=== PATIENT | male | born 1975 | race Two or more races ===

== ENCOUNTER 2022-05-10 12:00 | Emergency (ER) | payer MEDICAID, SELFPAY ==
[2022-05-10 12:06] VITALS: BP 135/82; PULSE 99; RESP 18; TEMP 36.8; O2SAT 99; BMI 21.9
== END 2022-05-10 13:03 | disposition left against medical advice (07) ==
PROVIDERS: Emergency Provider Emergency Medicine
DX: M54.2 Cervicalgia (principal)
CPT/HCPCS: 99281; 99283

== ENCOUNTER 2022-05-20 10:17 | Emergency (ER) | payer MEDICAID, SELFPAY ==
--- NOTE | ~2022-05-20 | XR_ITS ---
EXAMINATION: XR FOOT, LEFT CLINICAL INFORMATION: Left foot pain and swelling. COMPARISON: Radiographs done earlier today. TECHNIQUE: AP, lateral, and oblique views of the left foot. FINDINGS: Mild diffuse soft tissue swelling is present overlying the left foot and the left ankle. Old posttraumatic changes are noted involving the left ankle, better described on a separate left ankle radiograph report done earlier today. The left foot shows satisfactory bony alignment and intact cortices and normal-appearing articular margins and joint space. Mild osteoarthrosis at the dorsal part of the intertarsal joints. XR/XR foot LT 2V IMPRESSION: Mild diffuse soft tissue swelling of the left foot and ankle, without any radiographic evidence of underlying acute osseous or articular abnormalities of the left foot.
--- NOTE | ~2022-05-20 | XR_ITS ---
EXAMINATION: XR ANKLE, LEFT CLINICAL INFORMATION: Left ankle pain and swelling. COMPARISON: None TECHNIQUE: AP, lateral, and mortise views of the left ankle. An indicator arrow points to the lateral malleolus. FINDINGS: There is an old healed distal fibular metadiaphysis fracture. No acute fracture or dislocation is seen. The tibiotalar joint space is unremarkable. Corticated hypertrophic bone is seen posterior to the tibiotalar joint space.. The tarsal bones are normally aligned. The soft tissues are unremarkable. XR/XR ankle LT 2V IMPRESSION: Mild soft tissue swelling without overt acute underlying osseous abnormality. Old healed distal fibular fracture. Osseous hypertrophy posterior to the joint could represent a hypertrophied os trigonum or secondary to old trauma given the old distal fibular fracture. Correlate with physical exam.
[2022-05-20 10:19] VITALS: BP 134/78; PULSE 80; RESP 18; TEMP 36.6; O2SAT 98; BMI 24.3
--- NOTE | 2022-05-20 13:56 | ED.LOWEXIN ---
HPI - Extremity Injury (Lower) General Chief Complaint: Extremity Injury, Lower Stated Complaint: L ankle swollen no inj Time Seen by Provider: 05/20/22 13:55 Source: patient and interpreter for the deaf Mode of arrival: ambulatory Limitations: no limitations History of Present Illness HPI Narrative: 47-year-old male Faroese-speaking came in for evaluation of left ankle pain. Patient had an old injury to the left ankle causing fracture in the left ankle patient was in [place] back then. 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 Related Data Previous Rx's Medication Instructions Recorded ibuprofen 600 mg tablet 600 mg PO Q8H PRN pain #30 tabs 05/20/22 Allergies Allergy/AdvReac Type Severity Reaction Status Date / Time No Known Allergies Allergy Verified 05/10/22 12:06 Review of Systems Review of Systems: All other systems are reviewed and are negative Constitutional: Reports as per HPI and Reports no additional constitutional complaints Eyes: Reports as per HPI and Reports no additional eye complaints Reports system reviewed and no additional complaints, except as documented Cardiovascular: Reports as per HPI and Reports no additional cardiovascular complaints Respiratory: Reports as per HPI and Reports no additional respiratory complaints Gastrointestinal: Reports as per HPI and Reports no additional gastrointestinal complaints Genitourinary: Reports no additional female genitourinary complaints Musculoskeletal: Reports no additional musculoskeletal complaints Skin/Breast: Reports system reviewed and no additional complaints, except as docu Psychiatric: Reports no additional psychiatric complaints Endocrine: Reports no additional endocrine complaints Hematologic/Lymphatic: Reports no additional hematologic/lymphatic complaints Allergic/Immunologic: Reports no additional allergic/immunologic complaints Reports system reviewed and no additional complaints, except as documented and Reports Abnormal speech present Physical Exam Vital Signs: Vital Signs: Last Vital Signs Temp 98 F 05/20/22 10:19 Pulse 80 05/20/22 10:19 Resp 18 05/20/22 10:19 BP 134/78 05/20/22 10:19 Pulse Ox 98 05/20/22 10:19 O2 Del Method 05/20/22 10:19 BMI result Body Mass Index 24.3 Vital signs have been reviewed as appeared to be correct. Blood pressure normal. Heart rate normal. Respiration rate normal. Temperature normal. Oxygen saturation normal. Appearance: Alert. Oriented X3. No acute distress. Head: Normal external exam. Normocephalic. Atraumatic. No Medina signs noted. No raccoon eyes noted Eyes: PERRLA. EOMI. Conjunctiva and sclera normal. Eyelids normal. ENT: TM's Normal. Pharynx normal. Uvula midline. Moist mucous membranes. No trismus noted. No drooling noted. No muffled voice noted. Neck: Normal inspection. Neck supple. FROM. No adenopathy. Thyroid Normal. No meningeal signs. No neck mass noted. CVS: Normal heart rate and rhythm. Heart sound normal. No murmurs noted. Pulses normal throughout. Respiratory: No respiratory distress. Painless inspiration. Breath sounds normal. No wheezes/rales/rhonchi noted. Chest nontender. No accessory muscle usage noted or decreased air movement noted. Abdomen: Soft and nontender. Bowel sounds normal in all 4 quadrants. No distention noted. No organomegaly noted. No visible injury noted. Back: No CVA tenderness. Full range of motion noted. Skin: Skin warm and dry. Normal skin color. Normal skin turgor. No rashes/lesions/lacerations noted. Extremities: Left lower extremities: Swelling at the left ankle and left foot, no focal tenderness, no deformity, neurovascularly intact. Neuro: Oriented X 3. Cranial nerve exam: II-XII are grossly intact No motor deficit. No sensory deficit. Reflexes normal. Course Course Course Narrative: Left foot/left ankle pain likely due to an old fracture no acute fracture on x-ray. Will apply Beto bandage, ice, elevation, rest, NSAIDs, and follow up with Ortho. MDM - Extremity Injury (Lower) Imaging Data Left foot/ankle x-ray: Attestation: I personally reviewed and interpreted this imaging study as follows: Radiologist's impression: Mild soft tissue swelling without overt acute underlying osseous abnormality. Old healed distal fibular fracture. Osseous hypertrophy posterior to the joint could represent a hypertrophied os trigonum or secondary to old trauma given the old distal fibular fracture. Correlate with physical exam. Discharge Plan Discharge Clinical Impression: Ankle sprain and strain Patient Disposition: Home, Self-Care Instructions: Ankle Sprain (ED) Prescriptions: New ibuprofen 600 mg tablet 600 mg PO Q8H PRN (Reason: pain) Qty: 30 0RF Referrals: Arturo Cordero MD [Physician] - Stand Alone Forms: Work/School Release
[2022-05-20] MEDS: Ibuprofen 600 MG TABLET PO (14:09)
== END 2022-05-20 15:28 | disposition home or self-care (01) ==
PROVIDERS: Emergency Provider Emergency Medicine
DX: S93.402A Sprain of unspecified ligament of left ankle, initial encounter (principal); S96.912A Strain of unspecified muscle and tendon at ankle and foot level, left foot, initial encounter; X58.XXXA Exposure to other specified factors, initial encounter; Y93.9 Activity, unspecified; Y92.9 Unspecified place or not applicable; Y99.9 Unspecified external cause status
CPT/HCPCS: 73600; 73620; 99283

== ENCOUNTER 2022-06-03 09:32 | Emergency (ER) | payer MEDICAID, SELFPAY ==
--- NOTE | ~2022-06-03 | XR_ITS ---
EXAMINATION: XR ANKLE, LEFT CLINICAL INFORMATION: Pain with ambulation. COMPARISON: Radiograph of the left ankle dated from 05/20/2022. TECHNIQUE: AP, lateral, and mortise views of the left ankle. FINDINGS: Redemonstration of a chronic distal fibular fracture and prominent productive changes superior to the calcaneus, likely related with os trigonum. No acute fractures or malalignment. Similar degree of diffuse soft tissue swelling. XR/XR ankle LT min 3V IMPRESSION: No acute fracture or subluxation. Chronic distal fibular deformity, likely related with the prior fracture. Os trigonum. If symptoms persist and if clinically deemed appropriate, consider correlation with cross-sectional imaging to evaluate for occult injuries.
[2022-06-03 09:49] VITALS: BP 111/59; PULSE 74; RESP 20; TEMP 36.3; O2SAT 99; BMI 22.8
--- NOTE | 2022-06-03 12:48 | ED_ITS ---
HPI - General Adult General Chief complaint: Extremity Injury, Lower Stated complaint: L ankle pain Time Seen by Provider: 06/03/22 10:10 Source: patient Mode of arrival: ambulatory Limitations: no limitations History of Present Illness HPI narrative: Patient is a 47 year old male presenting to the emergency department today with left ankle pain. Patient states that he twisted his ankle going some stairs last night and is still having pain. Patient denies any dizziness, lightheadedness, abdominal pain, nausea, vomiting, fever, chills, blurry vision, double vision, loss of vision, chest pain, difficulty breathing, shortness of breath, back pain, night sweats, pain with urination, increased urinary frequency, increased urinary urgency, blood in his urine or stool, syncope or a near syncopal epis ode, bowel incontinence, bladder incontinence, bowel retention, bladder retention, or any other complaints at this time. Onset (ago): day(s) (1) Location: left and lower extremity Radiation: non-radiation Severity: mild Severity scale (1-10): 3 Quality: aching and dull Pain Consistency: constant Relieving factors: none Exacerbating factors: none Associated symptoms: denies other symptoms Treatments prior to arrival: none Related Data Previous Rx's Medication Instructions Recorded ibuprofen 600 mg tablet 600 mg PO Q8H PRN pain #30 tabs 05/20/22 Allergies Allergy/AdvReac Type Severity Reaction Status Date / Time No Known Allergies Allergy Verified 05/10/22 12:06 Review of Systems Constitutional: Constitutional: Reports no additional constitutional complaints, Denies chills, Denies fever(s) and Denies night sweats Eyes: Eyes: Reports no additional eye complaints, Denies blurry vision, Denies change in vision, Denies diplopia, Denies eye discharge, Denies loss of vision and Denies eye pain ENT: Denies dizziness Cardiovascular: Cardiovascular: Reports no additional cardiovascular complaints, Denies chest pain, Denies lightheadedness, Denies Loss of Consciousness and Denies dyspnea Respiratory: Respiratory: Reports no additional respiratory complaints and Denies dyspnea Gastrointestinal: Gastrointestinal: Reports no additional gastrointestinal complaints, Denies abdominal pain, Denies melena, Denies hematochezia, Denies change in bowel habits and Denies change in stool character Genitourinary: Genitourinary: Reports no additional male genitourinary complaints, Denies hematuria, Denies oliguria, Denies difficulty urinating, Denies dysuria, Denies urinary frequency, Denies urinary hesitancy, Denies urinary incontinence and Denies urinary urgency Musculoskeletal: Musculoskeletal: Reports no additional musculoskeletal complaints, Denies numbness and Denies tingling Comments: left ankle pain Neurologic: Denies dizziness, Denies loss of vision, Denies numbness and Denies tingling Psychiatric: Psychiatric: Reports no additional psychiatric complaints Endocrine: Endocrine: Reports no additional endocrine complaints Hematologic/Lymphatic: Hematologic/Lymphatic: Reports no additional hematologic/lymphatic complaints Allergic/Immunologic: Allergic/Immunologic: Reports no additional allergic/immunologic complaints [facility] Past Medical History Attestation statement: The following information was validated with the patient. Source: old records reviewed Social History Social History Advance Directives: No Advance Directives Information Provided: Yes Physical Exam ED Vital Signs: Vital Signs - 24 hr 06/03/22 09:49 Temperature 97.4 F Pulse Rate 74 Respiratory Rate 20 Blood Pressure 111/59 L Pulse Oximetry 99 Oxygen Delivery Method Room Air BMI result Body Mass Index 22.8 Const General: cooperative, no acute distress, alert and awake Nutritional Appearance: well nourished Orientation/consciousness: patient oriented x3 Limitations: no limitations HENMT Head: Yes normal to inspection and Yes atraumatic Ears: hearing grossly normal bilaterally and external ears normal General nose exam: Normal external nose present, no nasal discharge noted and no epistaxis Face and sinus: Yes normal facial exam, No abrasion and No laceration Mouth: Normal oral and palatal mucosa present, no drooling and no muffled voice Eyes General: appearance normal, both eyes and all related structures Periorbital: periorbital findings normal Eyelids: Yes eyelids normal Conjunctivae: conjunctivae normal Pupils: Equal, round and reactive pupils present EOM: EOMs intact bilaterally Neck Neck: Yes normal visual inspection, Yes full ROM and Yes no lymphadenopathy Chest Chest palpation & inspection: normal inspection of the chest Resp Effort & Inspection: normal respiratory effort and able to speak in complete sentences Auscultation: clear to auscultation bilaterally Cardio Rate: regular rate Rhythm: regular rhythm GI Inspection: Yes normal to inspection Neuro General: patient oriented x3 and moves all extremities Cranial nerves: Yes Equal, round and reactive pupils present Cognition (Neuro): normal cognition Motor exam (neuro): 5/5 motor strength present throughout Sensory Exam: Normal double simultaneous stimulation for sensation Coordination: [id number] test normal Extrem Other: mild swelling to left ankle General: Yes full ROM and Yes capillary refill normal Psych Appearance: grossly normal Mental Status: mental status grossly normal Affect: normal affect Attitude: cooperative Thought process: Normal thought process present Thought content: Normal thought content present Insight: Good insight present (Psych) Procedures Orthopedic Splinting/Casting Injury #1: Side: left Lower Extremity Injury Location: ankle Lower Extremity Immobilizer: boot orthosis Medical Decision Making MDM Narrative Medical decision making narrative: Patient is a 47 year old male presenting to the emergency department today with left ankle pain. Patient's physical exam showed mild swelling to the left ankle but was otherwise unremarkable. Patient's left ankle x-ray showed no acute fracture. I explained my physical exam findings as well as all test results to the patient. I answered all questions asked by the patient. Patient's left ankle was placed into a walking boot, without incident. I stressed the importance of the patient taking his medication as prescribed. I stressed the importance of the patient following up with his primary care provider and an orthopedic provider. I stressed the importance of the patient returning to the emergency department immediately if his symptoms were to worsen or if he were to develop any dizziness, shortness of breath, difficulty breathing, chest pain, blurry vision, loss of vision, nausea, vomiting, abdominal pain, fever, chills, back pain, or any other complaints. Patient verbalized agreement and understanding with this treatment plan and discharge. Differential Diagnosis Differential Diagnosis: ankle sprain Medical Records Medical records reviewed: Yes I reviewed the patient's medical records. Imaging Data Left ankle x-ray: Attestation: I personally reviewed and interpreted this imaging study as follows: My impression: No acute fracture. Radiologist's impression: EXAMINATION: XR ANKLE, LEFT CLINICAL INFORMATION: Pain with ambulation.? COMPARISON: Radiograph of the left ankle dated from 05/20/2022.? TECHNIQUE: AP, lateral, and mortise views of the left ankle. FINDINGS: Redemonstration of a chronic distal fibular fracture and prominent productive changes superior to the calcaneus, likely related with os trigonum. No acute fractures or malalignment. Similar degree of diffuse soft tissue swelling.? XR/XR ankle LT min 3V IMPRESSION: No acute fracture or subluxation. ? Chronic distal fibular deformity, likely related with the prior fracture. ? Os trigonum. ? If symptoms persist and if clinically deemed appropriate, consider correlation with cross-sectional imaging to evaluate for occult injuries. Dictated By: Linda Rivero Signed By: Electronically signed by Linda?Josefa 06/03/22 1221 Discharge Plan Discharge Clinical Impression: Ankle sprain and strain Patient Disposition: Home, Self-Care Instructions: Ankle Sprain (ED) Additional Instructions: Follow up with your primary care provider and an orthopedic provider. Return to the emergency department immediately if your symptoms worsen or if you develop any dizziness, shortness of breath, difficulty breathing, chest pain, blurry vision, loss of vision, nausea, vomiting, abdominal pain, fever, chills, back pain, or any other complaints. Prescriptions: No Action ibuprofen 600 mg tablet 600 mg PO Q8H PRN (Reason: pain) Qty: 30 0RF Referrals: [facility] [Provider Group] (Call to establish and follow up with a primary care provider. If you already have one, please follow up with them.) [facility] Primary Care, Olivia [Provider Group] (Call to establish and follow up with a primary care provider. If you already have one, please follow up with them.) [facility] Primary Care,Lisa [Provider Group] (Call to establish and follow up with a primary care provider. If you already have one, please follow up with them.) [facility] Surgeons [Provider Group] (Call to establish and follow up with an orthopedic provider. ) Stand Alone Forms: Work/School Release Print Language: Canadian
--- NOTE | 2022-06-03 14:37 | PC.NURSE ---
DISCHARGED BY PROVIDER
== END 2022-06-03 13:50 | disposition home or self-care (01) ==
PROVIDERS: Emergency Provider Emergency Medicine
DX: S93.402A Sprain of unspecified ligament of left ankle, initial encounter (principal); S96.911A Strain of unspecified muscle and tendon at ankle and foot level, right foot, initial encounter; X50.1XXA Overexertion from prolonged static or awkward postures, initial encounter; Y93.89 Activity, other specified; Y92.9 Unspecified place or not applicable; Y99.9 Unspecified external cause status
CPT/HCPCS: 73610; 99281; 99283

== ENCOUNTER 2022-06-05 10:51 | Emergency (ER) | payer MEDICAID, SELFPAY ==
[2022-06-05 10:59] VITALS: BP 114/73; PULSE 98; RESP 18; TEMP 36.9; O2SAT 98; BMI 25.1
--- NOTE | 2022-06-05 12:16 | ED.MEDCLEAR ---
HPI - Medical Clearance General Chief complaint: Medical Clearance Stated complaint: L foot pain Time Seen by Provider: 06/05/22 11:29 Source: patient Mode of arrival: ambulatory Limitations: language barrier (Algerian-speaking medical office worker utilized) History of Present Illness HPI Narrative: Patient presents to the emergency department today requesting medical clearance for return to work. He states that he was seen here 2 days ago for re-evaluation of an ankle sprain, he was still having pain at that time, states he was given a walking boot and advised to follow-up with orthopedics. He reports he does not have an orthopedic appointment until 06/17/2022. At this time and he denying any pain and has been walking without the use of boot since yesterday. He states that he would like to return to work as he is feeling much better at this time. Related Information Previous Rx's Medication Instructions Recorded ibuprofen 600 mg tablet 600 mg PO Q8H PRN pain #30 tabs 05/20/22 Allergies Allergy/AdvReac Type Severity Reaction Status Date / Time No Known Allergies Allergy Verified 05/10/22 12:06 Review of Systems Review of Systems: Musculoskeletal: No swelling. No deformity. Ambulating with steady gait. Yes all other systems are reviewed and are negative PMFSH Past Medical History Attestation statement: The following information was validated with the patient. Source: old records reviewed Social History Social History Advance Directives: No Advance Directives Information Provided: No Physical Exam Vital Signs: Vital Signs: Last Vital Signs Temp 98.4 F 06/05/22 10:59 Pulse 98 06/05/22 10:59 Resp 18 06/05/22 10:59 BP 114/73 06/05/22 10:59 Pulse Ox 98 06/05/22 10:59 O2 Del Method 06/05/22 10:59 BMI result Body Mass Index 25.1 Appearance: Alert.?Oriented to person, place and time. No acute distress.?Normal affect. Neck: Normal inspection.? Neck supple.?? CVS: Heart sounds normal. Normal heart rate and rhythm.? Pulses normal.?? Respiratory: No respiratory distress.? Lung sounds clear to auscultation bilaterally?? Abdomen: Soft and non-tender. Skin: Skin warm and dry.? Normal skin color.? Normal skin turgor.?? Extremities: No lower extremity edema.? No calf ttp?full AROM to left ankle. 2+ DP/PT pulse palpable bilaterally Neuro: Moves all extremities spontaneously. Sensation intact bilaterally. Ambulates with normal steady gait. Course Course Course Narrative: Patient is a 47-year-old male presents emergency department today for re-evaluation for recent left ankle sprain. At the time exam he is ambulatory with steady gait without the use of a walking boot, full AROM to ankle, neurovascularly intact distally. Patient initially noted to be jumping up and down on his foot during the exam denying any pain at this time. Follow-up appoint with Orthopedics is not scheduled for another 2 weeks, he would like to return to work at this time. Reviewed this case with ED attending Dr. Kamara, who agrees there is no contraindication to clearing patient for work at this time without being evaluated by Orthopedics. Patient provided with return to work note. Discharged home in stable condition. Discharge Plan Discharge Clinical Impression: Ankle sprain Patient Disposition: Home, Self-Care Additional Instructions: You were seen in the emergency department today for re-evaluation of your left ankle sprain. You were seen 2 days ago as you continue to have pain and were referred to follow-up with orthopedics. Today you declined having any additional pain and would like to return to work. You were able to ambulate without the use of the walking boot. At this time you are cleared to return to work, if you develop any new or worsening symptoms or concerns you should be re-evaluated by your primary care provider or Orthopedics if you develop ankle pain again. Prescriptions: No Action ibuprofen 600 mg tablet 600 mg PO Q8H PRN (Reason: pain) Qty: 30 0RF Stand Alone Forms: Work/School Release Print Language: Algerian
== END 2022-06-05 12:38 | disposition home or self-care (01) ==
PROVIDERS: Emergency Provider Emergency Medicine
DX: M79.672 Pain in left foot (principal)
CPT/HCPCS: 99283

== ENCOUNTER 2022-10-19 20:19 | Emergency (ER) | payer OTHER, SELFPAY ==
--- NOTE | ~2022-10-19 | XR_ITS ---
EXAMINATION: XR CHEST CLINICAL INFORMATION: Short of breath COMPARISON: None TECHNIQUE: Frontal view of the chest was obtained. FINDINGS: Cardiac leads overlie the chest. The lungs are well expanded. Bronchial wall thickening noted. There is no focal consolidation, edema, or effusion. No pneumothorax. The cardiomediastinal silhouette is within normal limits. No acute osseous abnormality. XR/XR chest 1V IMPRESSION: No dense consolidation. Bronchial wall thickening can be seen with a small airways process such as asthma or atypical/viral infection.
[2022-10-19 20:23] VITALS: BP 114/78; PULSE 67; O2SAT 96
[2022-10-19 20:26] VITALS: BP 149/84; PULSE 84; RESP 16; TEMP 36.9; O2SAT 97; BMI 22.0
--- NOTE | 2022-10-19 20:41 | PC.NURSE ---
pt resting on stretcher at this time, sleeping. respirations are even and unlabored, no apparent distress
[2022-10-19 21:38] LABS: MANUAL DIFF FLAG NO
[2022-10-19 21:40] LABS: Basophils Percent Auto 0.5 % (0-2); Eosinophils Absolute Auto 0.3 X10*3/uL (0.0-0.4); Eosinophils Percent Auto 3.2 % (0-4); Hematocrit 40.7 % (42.0-52.0); Hemoglobin 13.5 g/dl (14.0-18.0); Imm Gran Abs Auto 0.01 X10*3/uL (0.00-0.03); Imm Gran Pct Auto 0.1 % (0.0-0.4); Lymphocytes Absolute Auto 1.5 X10*3/uL (1.2-4.9); Mean Corpuscular HGB Conc 33.2 g/dl (31.0-36.0); Mean Corpuscular Hemoglobin 31.3 pg (27.0-33.0); Mean Corpuscular Volume 94.2 fL (80.0-98.0); Mean Platelet Volume 9.1 fL (9.4-12.4); Monocytes Absolute Auto 0.4 X10*3/uL (0.1-1.2); Monocytes Percent Auto 4.3 % (2-11); Neutrophils Absolute Auto 5.9 x10*3/uL (2.0-8.3); Neutrophils Percent Auto 72.9 % (45-73); Platelet Count 244 X10*3/uL (160-400); Red Blood Count 4.32 X10*6/uL (4.60-5.80); Red Cell Distribution Width 12.8 % (11.0-16.0); White Blood Count 8.1 X10*3/uL (4.8-10.8)
--- NOTE | 2022-10-19 21:43 | ECG_ITS ---
Test Reason : N/V Blood Pressure : / mmHG Vent. Rate : 077 BPM Atrial Rate : 077 BPM P-R Int : 142 ms QRS Dur : 098 ms QT Int : 420 ms P-R-T Axes : 067 062 064 degrees QTc Int : 475 ms Normal sinus rhythm with sinus arrhythmia Moderate voltage criteria for LVH, may be normal variant ( Sokolow-Moreno , Shayan product ) Nonspecific T wave abnormality Prolonged QT Abnormal ECG No previous ECGs available Referred By: Lisseth Garcia Electronically Signed By:Chuy Marroquin
[2022-10-19 21:48] VITALS: BP 131/80; PULSE 74; RESP 18; TEMP 37.2; O2SAT 100
[2022-10-19] MEDS: LORazepam 2 MG/ML VIAL 1 MG IVPUSH (22:00)
[2022-10-19] MEDS: 0.9 % Sodium Chloride 1,000 ML 999 ML IV ×3 (22:00→23:17)
[2022-10-19 22:03] LABS: IDNOW Serial# BCCEAD1C; Influenza A Negative (Negative); Influenza B2 Positive (Negative)
[2022-10-19 22:06] LABS: Anion Gap 9 (12-20)
[2022-10-19 22:10] LABS: Acetaminophen LAB < 17 mcg/mL (<30); Blood Urea Nitrogen 21 mg/dL (9-16); Calcium 8.8 mg/dL (8.4-10.2); Carbon Dioxide 30 mmol/L (22-29); Chloride 105 mmol/L (96-108); Creatinine Clr Calc Pharmacy 100.6; Estimated Glomerular Filt Rate > 60; Ethanol < 10 mg/dL; Glucose Random 106 mg/dL (60-115); Potassium 3.8 mmol/L (3.3-5.1); Salicylate < 5.0 mg/dL (15-30); Sodium 140 mmol/L (135-145)
[2022-10-19 22:15] LABS: COVID-19 Test Negative (Negative); IDNOW Serial# 16C4AD1C
[2022-10-19 22:23] LABS: Troponin-I High Sensitivity 8.4 ng/L (<3.5-35.0)
--- NOTE | 2022-10-19 22:26 | ED.GENADULT ---
HPI - General Adult General Chief complaint: Nausea/Vomiting/Diarrhea Stated complaint: Weak, no food/sleep x4days, substance use per EMS Time Seen by Provider: 10/19/22 21:14 Source: patient Mode of arrival: ambulatory Limitations: other (glory historian ) History of Present Illness HPI narrative: This is a 47-year-old male history of substance abuse presenting to the emergency department via EMS according to EMS patient was found wandering outside of a store, EMS reports that patient is homeless and he reported to EMS he has not been eating or drinking for the past 4 days. According to patient when he arrives he tells nursing he ate today however he is having nausea and vomiting. Patient also reports that he uses heroin, last use yesterday, tells me he is dope sick. When I asked him if he drinks alcohol he tells me he drinks twice a week last drink yesterday. No history of alcohol withdrawal. Reports diffuse body aches and pains. Denies fevers, chills, chest pain, shortness of breath, headache, vision changes, dizziness. Patient diaphoretic upon history taking. Poor historian and is easily annoyed with me asking him questions Related Data Previous Rx's Medication Instructions Recorded ibuprofen 600 mg tablet 600 mg PO Q8H PRN pain #30 tabs 05/20/22 Allergies Allergy/AdvReac Type Severity Reaction Status Date / Time No Known Allergies Allergy Verified 10/19/22 20:33 Review of Systems Review of Systems: Constitutional : No Weight loss, No Fever, No Chills, + Fatigue, + Malaise ENT/Mouth : No sore throat, No Rhinorrhea Eyes: No Eye Pain, No Swelling, No Redness Cardiovascular : No Chest Pain, No SOB, No Dyspnea on Exertion, No Orthopnea, No Edema, No Palpitations Respiratory : No Cough, No Sputum, No Wheezing Gastrointestinal : + Nausea, + Vomiting, No Diarrhea, No Constipation, No abdominal Pain, No Hematochezia, No Melena Genitourinary : No Dysuria, No Urinary Frequency, No Hematuria, Musculoskeletal : No joint pain, No Myalgias, No Joint Swelling Skin : No Skin Lesions, No rash Neuro : + Weakness, No Numbness, No Dizziness, No Headache Psych : No Anxiety/Panic, No Depression All other systems reviewed and are negative Yes all other systems are reviewed and are negative [facility] Past Medical History Attestation statement: The following information was validated with the patient. Source: old records reviewed and nursing notes reviewed Social History Social History Advance Directives: No Advance Directives Information Provided: No Physical Exam ED Vital Signs: Vital Signs - 24 hr 10/19/22 20:26 10/19/22 21:48 10/20/22 00:17 Temperature 98.5 F 99.0 F 98.3 F Pulse Rate 84 74 74 Respiratory Rate 16 18 18 Blood Pressure 149/84 H 131/80 138/83 Pulse Oximetry 97 100 96 Oxygen Delivery Method Room Air Room Air BMI result Body Mass Index 22.0 vss Appearance: Alert.? Oriented X3.? No acute distress.? Patient diaphoretic Head: Normocephalic, atraumatic, no step-offs or deformities Eyes: Pupils equal, round and reactive to light.? ENT: Pharynx normal.? Neck: Normal inspection.? Neck supple.? CVS: Normal heart rate and rhythm.? Pulses normal.? Respiratory: No respiratory distress.? Breath sounds normal.? Abdomen: Soft and nontender.? Skin: Skin warm and dry.? Normal skin color.? Normal skin turgor.? Extremities: No lower extremity edema.? No calf ttp. 5/5 strength to bilateral upper and lower extremities Neuro: Oriented X 3.? No motor deficit.? No sensory deficit. CN 2-12 intact Course Reevaluation(s) Reevaluation #1: CBC with normocytic anemia, chemistry with elevated BUN of 21, troponin negative, EKG nonischemic, patient not complaining of chest pain ache unlikely ACS. Patient's total creatinine kinase 950 consistent with rhabdomyolysis, no signs of DWIGHT at this time. Will hydrate with IV fluids. Salicylates, acetaminophen and ethanol level negative. Patient is noted to be positive for influenza type B likely contributing to patient's symptoms. Time: 22:34 Reevaluation #2: Patient's head CT pending, repeat CPK pending. At this time patient will be placed into physician observation to allow more time for listed imaging and labs. Sign-out given to Dr. Walker, patient should be seen by care team prior to DC. I will not initiate Tamiflu as patient's symptoms have likely been going on for greater than 48 hours per patient history. Time: 23:42 Medications Administered Generic Name Dose Route Start Last Admin Trade Name Freq PRN Reason Stop Dose Admin Sodium Chloride 1,000 mls @ 999 mls/hr 10/19/22 23:45 10/20/22 00:12 Ns IV 10/20/22 00:45 999 mls/hr .Q1H1M EDMUND Administration Discontinued Medications Generic Name Dose Route Start Last Admin Trade Name Freq PRN Reason Stop Dose Admin Acetaminophen 650 mg 10/19/22 22:25 10/19/22 23:17 Acetaminophen 325 Mg Tablet PO 10/19/22 22:26 650 mg ONCE ONE Administration Sodium Chloride 1,000 mls @ 999 mls/hr 10/19/22 21:45 10/20/22 00:12 Ns IV 10/19/22 22:45 Infused .Q1H1M EDMUND Infusion Sodium Chloride 1,000 mls @ 999 mls/hr 10/19/22 22:00 10/20/22 00:13 Ns IV 10/19/22 23:00 Infused .Q1H1M EDMUND Infusion Sodium Chloride 1,000 mls @ 999 mls/hr 10/19/22 22:30 10/20/22 00:12 Ns IV 10/19/22 23:30 Infused .Q1H1M EDMUND Infusion Lorazepam 1 mg 10/19/22 21:46 10/19/22 22:00 Lorazepam 2 Mg/Ml Vial IVPUSH 10/19/22 21:47 1 mg ONCE ONE Administration Medical Decision Making Medical Decision Making [facility] Narrative: 0 47-year-old male presents with fatigue, malaise, poor p.o. intake, nausea, vomiting, reports he feels ?dope sick ? Physical exam benign however patient does appear diaphoretic. Vital signs stable. Concerns for possible viral infection along with opiate withdrawal. Will rule out electrolyte abnormalities, dehydration, rhabdomyolysis. Unlikely intra-abdominal etiology, no tenderness to palpation of abdomen. Unlikely PE, ACS as patient does not report chest pain or shortness of breath. Plan at this time labs, imaging, viral test Differential Diagnosis Differential Diagnoses: The differential diagnosis associated with the presentation includes Concerns for possible viral infection along with opiate withdrawal. Will rule out electrolyte abnormalities, dehydration, rhabdomyolysis. Unlikely intra-abdominal etiology, no tenderness to palpation of abdomen. Unlikely PE, ACS as patient does not report chest pain or shortness of breath. Admission/Observation Consideration of admission/observation: Escalation of care including admission/observation considered Lab Data MDM Lab Attestation statement: I reviewed the patient's lab results. 10/19/22 21:33 10/19/22 21:33 Labs: Lab Results 10/19/22 10/19/22 10/19/22 Range/Units 21:33 21:33 21:33 WBC 8.1 (4.8-10.8) X10*3/uL RBC 4.32 L (4.60-5.80) X10*6/uL Hgb 13.5 L (14.0-18.0) g/dl Hct 40.7 L (42.0-52.0) % MCV 94.2 (80.0-98.0) fL MCH 31.3 (27.0-33.0) pg MCHC 33.2 (31.0-36.0) g/dl RDW 12.8 (11.0-16.0) % Plt Count 244 (160-400) X10*3/uL MPV 9.1 L (9.4-12.4) fL Immature Gran % (Auto) 0.1 (0.0-0.4) % Neut % (Auto) 72.9 (45-73) % Lymph % (Auto) 19.0 L (20-40) % Daniels % (Auto) 4.3 (2-11) % Eos % (Auto) 3.2 (0-4) % Baso % (Auto) 0.5 (0-2) % Lymph # (Auto) 1.5 (1.2-4.9) X10*3/uL Daniels # (Auto) 0.4 (0.1-1.2) X10*3/uL Eos # (Auto) 0.3 (0.0-0.4) X10*3/uL Baso # (Auto) 0.0 (0.0-0.2) X10*3/uL Abs Immat Gran (auto) 0.01 (0.00-0.03) X10*3/uL Absolute Neuts (auto) 5.9 (2.0-8.3) x10*3/uL Absolute Nucleated RBC 0.000 (0.0-0.012) X10*3/uL Nucleated RBC % (auto) 0.0 (0.0-0.2) /100WBC Sodium 140 (135-145) mmol/L Potassium 3.8 (3.3-5.1) mmol/L Chloride 105 (96-108) mmol/L Carbon Dioxide 30 H (22-29) mmol/L Anion Gap 9 L (12-20) BUN 21 H (9-16) mg/dL Creatinine 0.85 (0.5-1.4) mg/dL Estim Creat Clear Calc 100.6 Estimated GFR > 60 Random Glucose 106 (60-115) mg/dL Calcium 8.8 (8.4-10.2) mg/dL Total Creatine Kinase 950 H (38-174) U/L Troponin I High Sens (<3.5-35.0) ng/L Urine Color Urine Appearance Urine pH (5.0-9.0) Ur Specific Laurens (1.005-1.025) Urine Protein (Neg-Trace) mg/dL Urine Glucose (UA) (Negative) mg/dL Urine Ketones (Negative) mg/dL Urine Blood (Negative) Urine Nitrite (Negative) Ur Leukocyte Esterase (Negative) Salicylates < 5.0 L (15-30) mg/dL Urine Opiates Screen (Not Detect) Urine Fentanyl Screen (Not Detect) Acetaminophen < 17 (<30) mcg/mL Ur Barbiturates Screen (Not Detect) Ur Phencyclidine Scrn (Not Detect) Ur Amphetamines Screen (Not Detect) U Benzodiazepines Scrn (Not Detect) Urine Cocaine Screen (Not Detect) U Marijuana (THC) Screen (Not Detect) Ethyl Alcohol < 10 mg/dL COVID-19 (REJI) (Negative) COVID-19 Clin Com Influenza Type A (CHRISTIN) Negative (Negative) Influenza Type B (CHRISTIN) Positive A (Negative) Influenza A & B Note See Note 10/19/22 10/19/22 10/19/22 Range/Units 21:33 21:33 23:20 WBC (4.8-10.8) X10*3/uL RBC (4.60-5.80) X10*6/uL Hgb (14.0-18.0) g/dl Hct (42.0-52.0) % MCV (80.0-98.0) fL MCH (27.0-33.0) pg MCHC (31.0-36.0) g/dl RDW (11.0-16.0) % Plt Count (160-400) X10*3/uL MPV (9.4-12.4) fL Immature Gran % (Auto) (0.0-0.4) % Neut % (Auto) (45-73) % Lymph % (Auto) (20-40) % Daniels % (Auto) (2-11) % Eos % (Auto) (0-4) % Baso % (Auto) (0-2) % Lymph # (Auto) (1.2-4.9) X10*3/uL Daniels # (Auto) (0.1-1.2) X10*3/uL Eos # (Auto) (0.0-0.4) X10*3/uL Baso # (Auto) (0.0-0.2) X10*3/uL Abs Immat Gran (auto) (0.00-0.03) X10*3/uL Absolute Neuts (auto) (2.0-8.3) x10*3/uL Absolute Nucleated RBC (0.0-0.012) X10*3/uL Nucleated RBC % (auto) (0.0-0.2) /100WBC Sodium (135-145) mmol/L Potassium (3.3-5.1) mmol/L Chloride (96-108) mmol/L Carbon Dioxide (22-29) mmol/L Anion Gap (12-20) BUN (9-16) mg/dL Creatinine (0.5-1.4) mg/dL Estim Creat Clear Calc Estimated GFR Random Glucose (60-115) mg/dL Calcium (8.4-10.2) mg/dL Total Creatine Kinase (38-174) U/L Troponin I High Sens 8.4 (<3.5-35.0) ng/L Urine Color Urine Appearance Urine pH (5.0-9.0) Ur Specific Laurens (1.005-1.025) Urine Protein (Neg-Trace) mg/dL Urine Glucose (UA) (Negative) mg/dL Urine Ketones (Negative) mg/dL Urine Blood (Negative) Urine Nitrite (Negative) Ur Leukocyte Esterase (Negative) Salicylates (15-30) mg/dL Urine Opiates Screen POSITIVE H (Not Detect) Urine Fentanyl Screen POSITIVE H (Not Detect) Acetaminophen (<30) mcg/mL Ur Barbiturates Screen Not Detected (Not Detect) Ur Phencyclidine Scrn Not Detected (Not Detect) Ur Amphetamines Screen Not Detected (Not Detect) U Benzodiazepines Scrn Not Detected (Not Detect) Urine Cocaine Screen POSITIVE H (Not Detect) U Marijuana (THC) Screen Not Detected (Not Detect) Ethyl Alcohol mg/dL COVID-19 (REJI) Negative (Negative) COVID-19 Clin Com See Note Influenza Type A (CHRISTIN) (Negative) Influenza Type B (CHRISTIN) (Negative) Influenza A & B Note 10/19/22 10/19/22 Range/Units 23:24 23:55 WBC (4.8-10.8) X10*3/uL RBC (4.60-5.80) X10*6/uL Hgb (14.0-18.0) g/dl Hct (42.0-52.0) % MCV (80.0-98.0) fL MCH (27.0-33.0) pg MCHC (31.0-36.0) g/dl RDW (11.0-16.0) % Plt Count (160-400) X10*3/uL MPV (9.4-12.4) fL Immature Gran % (Auto) (0.0-0.4) % Neut % (Auto) (45-73) % Lymph % (Auto) (20-40) % Daniels % (Auto) (2-11) % Eos % (Auto) (0-4) % Baso % (Auto) (0-2) % Lymph # (Auto) (1.2-4.9) X10*3/uL Daniels # (Auto) (0.1-1.2) X10*3/uL Eos # (Auto) (0.0-0.4) X10*3/uL Baso # (Auto) (0.0-0.2) X10*3/uL Abs Immat Gran (auto) (0.00-0.03) X10*3/uL Absolute Neuts (auto) (2.0-8.3) x10*3/uL Absolute Nucleated RBC (0.0-0.012) X10*3/uL Nucleated RBC % (auto) (0.0-0.2) /100WBC Sodium (135-145) mmol/L Potassium (3.3-5.1) mmol/L Chloride (96-108) mmol/L Carbon Dioxide (22-29) mmol/L Anion Gap (12-20) BUN (9-16) mg/dL Creatinine (0.5-1.4) mg/dL Estim Creat Clear Calc Estimated GFR Random Glucose (60-115) mg/dL Calcium (8.4-10.2) mg/dL Total Creatine Kinase 805 H (38-174) U/L Troponin I High Sens (<3.5-35.0) ng/L Urine Color Yellow Urine Appearance Turbid Urine pH 7.5 (5.0-9.0) Ur Specific Laurens 1.015 (1.005-1.025) Urine Protein Negative (Neg-Trace) mg/dL Urine Glucose (UA) Negative (Negative) mg/dL Urine Ketones Negative (Negative) mg/dL Urine Blood Negative (Negative) Urine Nitrite Negative (Negative) Ur Leukocyte Esterase Negative (Negative) Salicylates (15-30) mg/dL Urine Opiates Screen (Not Detect) Urine Fentanyl Screen (Not Detect) Acetaminophen (<30) mcg/mL Ur Barbiturates Screen (Not Detect) Ur Phencyclidine Scrn (Not Detect) Ur Amphetamines Screen (Not Detect) U Benzodiazepines Scrn (Not Detect) Urine Cocaine Screen (Not Detect) U Marijuana (THC) Screen (Not Detect) Ethyl Alcohol mg/dL COVID-19 (REJI) (Negative) COVID-19 Clin Com Influenza Type A (CHRISTIN) (Negative) Influenza Type B (CHRISTIN) (Negative) Influenza A & B Note Independent Interpretation I performed an independent interpretation of an: Plain X-Ray and CT Scan Radiology Impression Discussion of test interpretation with radiology: I have reviewed the radiologist's reading. Core Measures AMI core measures followed: Yes Measure exclusions: not indicated Critical Care Time Critical Care Time Critical Care Time: No Discharge Plan Discharge Clinical Impression: Influenza, Rhabdomyolysis, Nausea & vomiting Patient Disposition: Still a Patient Prescriptions: No Action ibuprofen 600 mg tablet 600 mg PO Q8H PRN (Reason: pain) Qty: 30 0RF
[2022-10-19] MEDS: Acetaminophen 325 MG TABLET 650 MG PO (23:17)
[2022-10-19 23:32] LABS: Appearance Urine Turbid; Color Urine Yellow; Glucose Urine UA Negative (Negative); Leukocyte Esterase Urine Negative (Negative); Nitrite Urine Negative (Negative); PH 7.5 (5.0-9.0); Specific Gravity - Urine 1.015 (1.005-1.025); Urine Blood Negative (Negative); Urine Ketones Negative (Negative); Urine Protein Negative (Neg-Trace)
[2022-10-19 23:44] LABS: Amphetamine Screen Urine Not Detected (Not Detect); Barbiturates, Urine Not Detected (Not Detect); Benzodiazepines Screen Urine Not Detected (Not Detect); Cannabinoid Screen Urine Not Detected (Not Detect); Cocaine Screen Urine POSITIVE (Not Detect); Fentanyl, urine POSITIVE (Not Detect); Opiate Screen Urine POSITIVE (Not Detect); Phencyclidine Screen Urine Not Detected (Not Detect)
[2022-10-20] MEDS: 0.9 % Sodium Chloride 1,000 ML 999 ML IV (00:12)
[2022-10-20 00:17] VITALS: BP 138/83; PULSE 74; RESP 18; TEMP 36.8; O2SAT 96
--- NOTE | 2022-10-20 00:39 | PC.NURSE ---
Pt is CAOx4 and continues to be uncooperative with staff and treatment. Pt ripped one IV out of arm while fluids were infusing. Second IV inserted and pt jumped out of bed and ripped out second IV. Provider made aware.
== END 2022-10-20 00:57 | disposition home or self-care (01) ==
PROVIDERS: Physician Assistant; Emergency Provider Internal Medicine
DX: J11.1 Influenza due to unidentified influenza virus with other respiratory manifestations (principal); M62.82 Rhabdomyolysis; R11.2 Nausea with vomiting, unspecified; Z20.822 Contact with and (suspected) exposure to COVID-19; F19.10 Other psychoactive substance abuse, uncomplicated; Z59.00 Homelessness unspecified
CPT/HCPCS: 36415; 71045; 80048; 80143; 80179; 80307; 81003; 82077; 82550; 84484; 85025; 87502; 87635; 93005; 96361; 96374; 99284; J2060

== ENCOUNTER 2023-04-28 22:03 | Emergency (ER) | payer OTHER, SELFPAY ==
[2023-04-28 22:18] VITALS: BP 132/62; PULSE 72; O2SAT 99; BMI 30.4
--- NOTE | 2023-04-28 22:31 | ED.OVERDOSE ---
HPI - Overdose General Chief Complaint: Overdose Stated Complaint: overdose, found unconscious, alert now, per ems Time Seen by Provider: 04/28/23 22:14 Source: patient and EMS Mode of arrival: EMS Limitations: no limitations History of Present Illness HPI Narrative: Patient was found unresponsive around on a park bench received 4 mg Narcan intranasally after that patient vomiting no signs of head injury says that he used cocaine denies any chest pain shortness of breath Related Data Previous Rx's Medication Instructions Recorded ibuprofen 600 mg tablet 600 mg PO Q8H PRN pain #30 tabs 05/20/22 Allergies Allergy/AdvReac Type Severity Reaction Status Date / Time No Known Allergies Allergy Verified 04/28/23 22:20 Review of Systems Review of Systems: Yes all other systems are reviewed and are negative [facility] Social History Social History Smoked in Last 30 Days: Yes Advance Directives: No Advance Directives Information Provided: Yes Physical Exam Vital Signs: Vital Signs: Last Vital Signs Temp 98.5 F 04/29/23 07:31 Pulse 81 04/29/23 07:31 Resp 17 04/29/23 07:31 BP 130/89 04/29/23 07:31 Pulse Ox 98 04/29/23 07:31 O2 Del Method Room Air 04/29/23 07:31 BMI result Body Mass Index 30.4 Appearance: Alert. Oriented X3. No acute distress. Eyes: PERRLA, No Nystagmus ENT: Pharynx normal. Oral Mucosa moist Neck: Normal inspection. Neck supple. CVS: Normal heart rate and rhythm. Pulses normal. Respiratory: No respiratory distress. Equal air entry bilateral, no wheezing/rales/rhonchi Abdomen: Soft and nontender. Bowel sounds are present, no mass palpable, no CVA tenderness Skin: Skin warm and dry. Normal skin color. Normal skin turgor. Extremities: No lower extremity edema. No calf tenderness Neuro: Oriented X 3. No motor deficit. No sensory deficit.No cerebellar signs , cranial nerves II-XII intact Medical Decision Making Medical Decision Making MDM Narrative: Patient with polysubstance abuse refused to give the urine labs are stable is still sleepy will watch him little more fully awake discharge patient denies any chest pain 2 sets of cardiac enzymes negative for delta change patient home and Sober Differential Diagnosis Differential Diagnoses: The differential diagnosis associated with the presentation includes Polysubstance abuse/ACS Lab Data MDM Lab Attestation statement: I reviewed the patient's lab results. 04/29/23 00:45 04/29/23 00:45 Labs: Lab Results 04/29/23 04/29/23 04/29/23 Range/Units 00:45 00:45 00:45 WBC 11.7 H (4.8-10.8) X10*3/uL RBC 3.87 L (4.60-5.80) X10*6/uL Hgb 12.0 L (14.0-18.0) g/dl Hct 38.3 L (42.0-52.0) % MCV 99.0 H (80.0-98.0) fL MCH 31.0 (27.0-33.0) pg MCHC 31.3 (31.0-36.0) g/dl RDW 13.9 (11.0-16.0) % Plt Count 285 (160-400) X10*3/uL MPV 9.3 L (9.4-12.4) fL Immature Gran % (Auto) 0.3 (0.0-0.4) % Neut % (Auto) 77.5 H (45-73) % Lymph % (Auto) 8.0 L (20-40) % Duchesne % (Auto) 3.5 (2-11) % Eos % (Auto) 10.3 H (0-4) % Baso % (Auto) 0.4 (0-2) % Lymph # (Auto) 0.9 L (1.2-4.9) X10*3/uL Duc[place]ne # (Auto) 0.4 (0.1-1.2) X10*3/uL Eos # (Auto) 1.2 H (0.0-0.4) X10*3/uL Baso # (Auto) 0.1 (0.0-0.2) X10*3/uL Abs Immat Gran (auto) 0.03 (0.00-0.03) X10*3/uL Absolute Neuts (auto) 9.1 H (2.0-8.3) x10*3/uL Absolute Nucleated RBC 0.000 (0.0-0.012) X10*3/uL Nucleated RBC % (auto) 0.0 (0.0-0.2) /100WBC PT (10.0-13.1) SEC INR (0.9-1.1) Sodium 144 (135-145) mmol/L Potassium 3.7 (3.3-5.1) mmol/L Chloride 108 (96-108) mmol/L Carbon Dioxide 30 H (22-29) mmol/L Anion Gap 10 L (12-20) BUN 13 (9-16) mg/dL Creatinine 0.75 (0.5-1.4) mg/dL Estim Creat Clear Calc 128.8 Estimated GFR > 60 Random Glucose 112 (60-115) mg/dL Calcium 9.4 D (8.4-10.2) mg/dL Magnesium 2.0 (1.6-2.6) mg/dL Total Bilirubin 0.3 (0.0-1.0) mg/dL AST 21 (5-37) U/L ALT 18 (0-40) U/L Alkaline Phosphatase 79 (39-117) U/L Troponin I High Sens 17.3 (<3.5-35.0) ng/L Total Protein 6.7 (6.5-8.0) g/dL Albumin 3.3 L (3.5-5.0) g/dL 04/29/23 04/29/23 Range/Units 00:45 02:10 WBC (4.8-10.8) X10*3/uL RBC (4.60-5.80) X10*6/uL Hgb (14.0-18.0) g/dl Hct (42.0-52.0) % MCV (80.0-98.0) fL MCH (27.0-33.0) pg MCHC (31.0-36.0) g/dl RDW (11.0-16.0) % Plt Count (160-400) X10*3/uL MPV (9.4-12.4) fL Immature Gran % (Auto) (0.0-0.4) % Neut % (Auto) (45-73) % Lymph % (Auto) (20-40) % Duc[place]ne % (Auto) (2-11) % Eos % (Auto) (0-4) % Baso % (Auto) (0-2) % Lymph # (Auto) (1.2-4.9) X10*3/uL Duc[place]ne # (Auto) (0.1-1.2) X10*3/uL Eos # (Auto) (0.0-0.4) X10*3/uL Baso # (Auto) (0.0-0.2) X10*3/uL Abs Immat Gran (auto) (0.00-0.03) X10*3/uL Absolute Neuts (auto) (2.0-8.3) x10*3/uL Absolute Nucleated RBC (0.0-0.012) X10*3/uL Nucleated RBC % (auto) (0.0-0.2) /100WBC PT 11.0 (10.0-13.1) SEC INR 1.0 (0.9-1.1) Sodium (135-145) mmol/L Potassium (3.3-5.1) mmol/L Chloride (96-108) mmol/L Carbon Dioxide (22-29) mmol/L Anion Gap (12-20) BUN (9-16) mg/dL Creatinine (0.5-1.4) mg/dL Estim Creat Clear Calc Estimated GFR Random Glucose (60-115) mg/dL Calcium (8.4-10.2) mg/dL Magnesium (1.6-2.6) mg/dL Total Bilirubin (0.0-1.0) mg/dL AST (5-37) U/L ALT (0-40) U/L Alkaline Phosphatase (39-117) U/L Troponin I High Sens 16.2 (<3.5-35.0) ng/L Total Protein (6.5-8.0) g/dL Albumin (3.5-5.0) g/dL Independent Interpretation I performed an independent interpretation of an: EKG Interpretation: Normal sinus rhythm heart rate 80 beats per minute LVH with deep T inversion in lateral leads possible anterior lateral ischemia prolonged QT interval QTC 507 millisecond. Discharge Plan Discharge Clinical Impression: Polysubstance abuse Patient Disposition: Still a Patient Instructions: Polysubstance Abuse (ED) Additional Instructions: Stop using drugs and follow with detox Jocelyn de consumir drogas y sigue con la desintoxicaci?n Prescriptions: No Action ibuprofen 600 mg tablet 600 mg PO Q8H PRN (Reason: pain) Qty: 30 0RF Print Language: Mongolian
[2023-04-28 22:41] VITALS: BP 127/80; PULSE 76; RESP 19; TEMP 36.3; O2SAT 96
--- NOTE | 2023-04-28 22:44 | MHC.EDTECH ---
Patient vomited large amount and therefore cleaned
--- OUTSIDE RECORDS SUMMARY | 2023-04-29 00:10 | XMS_ITS | Continuity of Care Document ---
Author Name Unknown Organization [facility] Address [address] [place] [id number] Care Team Providers Care Asic Design Engineer Name Role Phone Not on Staff, PCP Primary Care Physician Unavail able Encounter [facility] [place](s): 01/23/21 - 01/23/[address] [phone]- Discharge Disposition: A-D/C Home Attending Physician: Can Syed MD Admitting Physician: Can Syed MD Referring Physician: Not on Staff, Referring MD Allergies, Adverse Reactions, Alerts No Known Medication Allergies Medications ibuprofen 600 mg oral tablet 600 mg, 1, tablet, By Mouth, Every 6 hours, # 30 tablet, Refills 0, Tot. Refills 0, Maintenance, 01/23/21 20:19:00 EDT, Route to Pharmacy Electronically, [facility]/pharmacy #[id number], Partial fill upon patientrequest if the prescription is for a schedule II op... Start Date: 01/23/21 Status: Ordered ibuprofen 600 mg oral tablet 600 mg, 1, tablet, By Mouth, Every 8 hours, # 30 tablet, Refills 0, Tot. Refills 0, Maintenance, 10/22/20 22:03:00 EST, Route to Pharmacy Electronically, [facility]/pharmacy #[id number], Partial fill upon patientrequest if the prescription is for a schedule II op... Start Date: 10/22/20 Status: Ordered Results Radiology Reports * Exam Date Time Procedure Performing Provider Status 01/23/21 8:00 PM Lumbar Spine 2 or 3 Views Kallas , Chr istine; Auth (Verified) Notes: (Lumbar Spine 2 or 3 Views) Reason For Exam: pain;Pain RESULT: Lumbar Spine 2 or 3 Views Lumbar Spine 2 or 3 Views Hx of Present Illness: Pt reports lower back pain for the last 3 days, chronic last 3 months. Pt denies any medical problems. Pt reports he injured his back 6 months he fell off of a ladder and had acar accident , no surgical intervention needed.; Reason: Pain; pain; Clinical Question(s): FractureDislocation COMPARISON: None. FINDINGS: No bone lesions or fractures. Left 12th rib is rudimentary. There is partial sacralization of L5 onthe left. Mild disc space narrowing and endplate osteophytosis at L3-L4. Remainder of the intervertebral disclevels are well preserved. Normal alignment. No spondylolysis or spondylolisthesis. Large amount of stool in the visualized colon including formed stool in the rectosigmoid. IMPRESSION: Degenerative changes but no evidence of an acute process. WSN: [id number] Ordering Physician: Patrica Moreira Dictated By: Ousmane Roldan MD Dictated Date/Time: 01/23/21 8:03 pm Reviewed By: Ousmane Roldan MD Signed By: Ousmane Roldan MD Signed Date/Time: 01/23/21 8:03 pm Transcribed By: MIGUEL Transcribed Date/Time: 01/23/21 8:01 pm Vital Signs Most recent to oldest [Reference Range]: 1 2 3 Height 175 cm (01/23/21 6:25 PM) 175 cm (01/23/21 1:05 PM) 175 cm (01/23/21 1:03 PM) Weight 68.3 kg (01/23/21 6:25 PM) 68.3 kg (01/23/21 1:05 PM) 68.3 kg (01/23/21 1:03 PM) Oxygen Saturation [94-100 %] 100 % (01/23/21 6:25 PM) 99 % (01/23/21 1:03 PM) 99 % (01/23/21 1:00 PM) Pulse Rate [55-90 bpm] 70 bpm (01/23/21 6:25 PM) 76 bpm (01/23/21 1:03 PM) 106 bpm *H* (01/23/21 1:00 PM) Body Mass Index [18.5-24.99] 22.3 (01/23/21 6:25 PM) 22.3 (01/23/21 1:03 PM) Blood Pressure [90-138/55-84 mm Hg] 117/69mm Hg (01/23/21 6:25 PM) 134/88mm Hg (01/23/21 1:03 PM) Respiratory Rate [16-30 br/min] 16 br/min (01/23/21 6:25 PM) 20 br/min (01/23/21 1:03 PM) Temperature [96.8-100.4 DegF] 98 DegF (01/23/21 6:25 PM) 98.4 DegF (01/23/21 1:03 PM) Mode of Delivery (Oxygen) Room air (01/23/21 6:25 PM) Room air (01/23/21 1:03 PM) Room air (01/23/21 1:00 PM) Blood pressure sites Arm, right (01/23/21 6:25 PM) Arm, right (01/23/21 1:03 PM) Temperature Route Oral (01/23/21 6:25 PM) Oral (01/23/21 1:03 PM) Dry Weight 68.3 kg (01/23/21 6:25 PM) 68.3 kg (01/23/21 1:05 PM) 68.3 kg (01/23/21 1:03 PM) Dry Weight Obtained Via Standing scale (01/23/21 1:03 PM)
--- OUTSIDE RECORDS SUMMARY | 2023-04-29 00:10 | XMS_ITS | Continuity of Care Document ---
Author Name Unknown Organization [facility] Address [address] [place] [id number]- Care Team Providers Care Cone Sewer Name Role Phone Not on Staff, PCP Primary Care Physician Unavail able Encounter [facility] [place] Date(s): 12/29/20 - 02/03/[address] [address] Attending Physician: Stefan Schneider Admitting Physician: Stefan Schneider Referring Physician: Stefan Schneider Allergies, Adverse Reactions, Alerts No Known Medication Allergies Medications ibuprofen 600 mg oral tablet 600 mg, 1, tablet, By Mouth, Every 6 hours, # 30 tablet, Refills 0, Tot. Refills 0, Maintenance, 01/23/21 20:19:00 EDT, Route to Pharmacy Electronically, [facility]/pharmacy #[id number], Partial fill upon patientrequest if the prescription is for a schedule II op... Start Date: 01/23/21 Status: Ordered ibuprofen 600 mg oral tablet 600 mg, 1, tablet, By Mouth, Every 8 hours, # 30 tablet, Refills 0, Tot. Refills 0, Maintenance, 10/22/20 22:03:00 EST, Route to Pharmacy Electronically, [facility]/pharmacy #[id number], Partial fill upon patientrequest if the prescription is for a schedule II op... Start Date: 10/22/20 Status: Ordered
--- OUTSIDE RECORDS SUMMARY | 2023-04-29 00:10 | XMS_ITS | Continuity of Care Document ---
Author Name Unknown Organization [facility] Address [address] [place] [id number]- Care Team Providers Care Internship Coordinator Name Role Phone Not on Staff, PCP Primary Care Physician Unavail able [place] [facility] [place](s[place] 01/04/21 - 02/03/[address] [address] Attending Physician: Diaz Delaney Admitting Physician: Diaz Delaney Referring Physician: AdmtrDiaz Allergies, Adverse Reactions, Alerts No Known Medication Allergies Medications ibuprofen 600 mg oral tablet 600 mg, 1, tablet, By Mouth, Every 6 hours, # 30 tablet, Refills 0, Tot. Refills 0, Maintenance, 01/23/21 20:19:00 EDT, Route to Pharmacy Electronically, [facility]/pharmacy #[id number], Partial fill upon patientrequest if the prescription is for a schedule II op... Start Date: 01/23/21 Status: Ordered ibuprofen 600 mg oral tablet 600 mg, 1, tablet, By Mouth, Every 8 hours, # 30 tablet, Refills 0, Tot. Refills 0, Maintenance, 10/22/20 22:03:00 EST, Route to Pharmacy Electronically, [facility]/pharmacy #[id number], Partial fill upon patientrequest if the prescription is for a schedule II op... Start Date: 10/22/20 Status: Ordered
--- OUTSIDE RECORDS SUMMARY | 2023-04-29 00:10 | XMS_ITS | Continuity of Care Document ---
Author Name Unknown Organization [facility] Address [address] [place] [address]- Care Team Providers Care Med Care Manager Name Role Phone Not on Staff, PCP Primary Care Physician Unavail able [place] [facility] 10/22/20 - 10/22/[address] [address]- Encounter Diagnosis Shoulder sprain(Final) - 10/22/20 Discharge Disposition: A-D/C Home Attending Physician: Phyllis Tuttle MD Admitting Physician: Phyllis Tuttle MD Referring Physician: Not on Staff, Referring MD Allergies, Adverse Reactions, Alerts No Known Medication Allergies Medications ibuprofen 600 mg oral tablet 600 mg, 1, tablet, By Mouth, Every 8 hours, # 30 tablet, Refills 0, Tot. Refills 0, Maintenance, 10/22/20 22:03:00 EST, Route to Pharmacy Electronically, [facility]/pharmacy #[id number], Partial fill upon patientrequest if the prescription is for a schedule II op... Start Date: 10/22/20 Status: Ordered Results Radiology Reports * Exam Date Time Procedure Performing Provider Status 10/22/20 5:04 PM Shoulder Min 2 Views Left Maura Ingram; Auth (Verified) Notes: (Shoulder Min 2 Views Left) Reason For Exam: with Pain;Trauma RESULT: Shoulder Min 2 Views Left Shoulder Min 2 Views Left, views Hx of Present Illness: C O left neck, left shoulder pain, associated with numbness to Right inted infer x 1 wk, report popping sound when he lift his arm above shoulder level.; Reason: Trauma; with Pain; Clinical Question(s): Fracture; Special Instructions: This is a protocol film and radiologist should call any findings to the Charge Nurse COMPARISON: None. FINDINGS: No fracture or dislocation. Mild joint space narrowing and marginal spurring. Mild degenerative changes of the AC joint. The portion of the clavicle included on the exam is normal. No calcification of the rotator cuff. IMPRESSION: No acute abnormality. WSN: [id number] Ordering Physician: Can Syed MD Dictated By: Andre Cordero MD Dictated Date/Time: 10/22/20 5:08 pm Reviewed By: Andre Cordero MD Signed By: Andre Cordero MD Signed Date/Time: 10/22/20 5:08 pm Transcribed By: MIGUEL Transcribed Date/Time: 10/22/20 5:06 pm Vital Signs Most recent to oldest [Reference Range]: 1 2 3 Weight 69.9 kg (10/22/20 3:38 PM) 69.9 kg (10/22/20 3:36 PM) Oxygen Saturation [94-100 %] 100 % (10/22/20 7:55 PM) 99 % (10/22/20 3:36 PM) Pulse Rate [55-90 bpm] 68 bpm (10/22/20 10:42 PM) 70 bpm (10/22/20 7:55 PM) 72 bpm (10/22/20 3:36 PM) Blood Pressure [90-138/55-84 mm Hg] 122/78mm Hg (10/22/20 10:42 PM) 126/77mm Hg (10/22/20 7:55 PM) 121/81mm Hg (10/22/20 3:36 PM) Respiratory Rate [16-30 br/min] 18 br/min (10/22/20 10:42 PM) 16 br/min (10/22/20 7:55 PM) 16 br/min (10/22/20 3:36 PM) Temperature [96.8-100.4 DegF] 98.6 DegF (10/22/20 7:55 PM) 98.8 DegF (10/22/20 3:36 PM) Mode of Delivery (Oxygen) Room air (10/22/20 7:55 PM) Room air (10/22/20 3:36 PM) Blood pressure sites Arm, left (10/22/20 10:42 PM) Arm, left (10/22/20 7:55 PM) Arm, left (10/22/20 3:36 PM) Temperature Route Oral (10/22/20 7:55 PM) Oral (10/22/20 3:36 PM) Weight Obtained Via Standing scale (10/22/20 3:36 PM)
--- NOTE | 2023-04-29 00:12 | ECG_ITS ---
Test Reason : OVERDOSE Blood Pressure : / mmHG Vent. Rate : 080 BPM Atrial Rate : 080 BPM P-R Int : 142 ms QRS Dur : 098 ms QT Int : 440 ms P-R-T Axes : 062 049 094 degrees QTc Int : 507 ms Normal sinus rhythm Moderate voltage criteria for LVH, may be normal variant ( Sokolow-Moreno , Hernando product ) ST & T wave abnormality, consider anterolateral ischemia Prolonged QT Abnormal ECG When compared with ECG of 19-OCT-2022 21:48, Inverted T waves have replaced nonspecific T wave abnormality in Lateral leads Referred By: Gabriel Walker Electronically Signed By:GAIL BANERJEE MD
[2023-04-29 00:23] VITALS: BP 124/88; PULSE 75; RESP 20; TEMP 37.1; O2SAT 97
[2023-04-29 00:49] LABS: MANUAL DIFF FLAG NO
[2023-04-29 00:51] LABS: Basophils Absolute Auto 0.1 X10*3/uL (0.0-0.2); Basophils Percent Auto 0.4 % (0-2); Eosinophils Absolute Auto 1.2 X10*3/uL (0.0-0.4); Eosinophils Percent Auto 10.3 % (0-4); Hematocrit 38.3 % (42.0-52.0); Imm Gran Abs Auto 0.03 X10*3/uL (0.00-0.03); Imm Gran Pct Auto 0.3 % (0.0-0.4); Lymphocytes Absolute Auto 0.9 X10*3/uL (1.2-4.9); Mean Corpuscular HGB Conc 31.3 g/dl (31.0-36.0); Mean Platelet Volume 9.3 fL (9.4-12.4); Monocytes Absolute Auto 0.4 X10*3/uL (0.1-1.2); Monocytes Percent Auto 3.5 % (2-11); Neutrophils Absolute Auto 9.1 x10*3/uL (2.0-8.3); Neutrophils Percent Auto 77.5 % (45-73); Platelet Count 285 X10*3/uL (160-400); Red Blood Count 3.87 X10*6/uL (4.60-5.80); Red Cell Distribution Width 13.9 % (11.0-16.0); White Blood Count 11.7 X10*3/uL (4.8-10.8)
[2023-04-29 01:05] LABS: Alanine Aminotransferase 18 U/L (0-40); Albumin Level 3.3 g/dL (3.5-5.0); Alkaline Phosphatase 79 U/L (39-117); Anion Gap 10 (12-20); Aspartate Amino Transferase 21 U/L (5-37); Bilirubin Total 0.3 mg/dL (0.0-1.0); Blood Urea Nitrogen 13 mg/dL (9-16); Calcium 9.4 mg/dL (8.4-10.2); Carbon Dioxide 30 mmol/L (22-29); Chloride 108 mmol/L (96-108); Creatinine Clr Calc Pharmacy 128.8; Estimated Glomerular Filt Rate > 60; Glucose Random 112 mg/dL (60-115); Potassium 3.7 mmol/L (3.3-5.1); Sodium 144 mmol/L (135-145); Total Protein 6.7 g/dL (6.5-8.0)
[2023-04-29 01:09] LABS: Troponin-I High Sensitivity 17.3 ng/L (<3.5-35.0)
[2023-04-29 02:35] LABS: Troponin-I High Sensitivity 16.2 ng/L (<3.5-35.0)
[2023-04-29 03:33] VITALS: BP 116/80; PULSE 70; RESP 12; O2SAT 98
[2023-04-29 05:34] VITALS: BP 121/81; PULSE 67; RESP 12; O2SAT 97
--- NOTE | 2023-04-29 06:01 | PC.NURSE ---
This RN and RN Yocasta attempted to assist pt to decom to get belongings and get dressed. Pt unable to ambulate independently, difficulty staying aroused and alert. Pt brought back to bed, provider and charge nurse aware. Pt placed back on tele at this time until ready for discharge.
[2023-04-29 06:12] VITALS: BP 141/86; PULSE 67; RESP 12; TEMP 36.8; O2SAT 97
[2023-04-29 07:31] VITALS: BP 130/89; PULSE 81; RESP 17; TEMP 36.9; O2SAT 98
--- NOTE | 2023-04-29 09:47 | HO.SUDE ---
This loan underwriter met with patient to complete SUDE, pt BIBA for overdose, narcan administered. Pt difficult to engage, pt reports heroin/crack use, pt reports is on 75mg MTD at [facility]. Pt declined to answer this writers questions. Pt declined addiction/recovery supports, declined harm reduction discussion. Pt reports will be going home when discharged.
[2023-04-29 10:07] VITALS: BP 126/79; PULSE 71; RESP 17; TEMP 37.4; O2SAT 94
--- NOTE | 2023-04-29 10:50 | PC.NURSE ---
Pt ambulated around unit. given snacks.
== END 2023-04-29 11:05 | disposition still patient (30) ==
PROVIDERS: Emergency Provider Internal Medicine; PCP Internal Medicine
DX: F19.10 Other psychoactive substance abuse, uncomplicated (principal); R40.4 Transient alteration of awareness; R11.10 Vomiting, unspecified; F17.200 Nicotine dependence, unspecified, uncomplicated
CPT/HCPCS: 36415; 80053; 83735; 84484; 85025; 85610; 93005; 99285

== ENCOUNTER → 2023-04-29 00:12 | Outpatient (BNV) | payer OTHER, SELFPAY | PROVIDERS: Emergency Provider Internal Medicine; PCP Internal Medicine; Visit Provider Internal Medicine Cardiovascular Disease | DX: R94.31 Abnormal electrocardiogram [ECG] [EKG] (principal) | CPT/HCPCS: 93010 ==

== ENCOUNTER 2023-09-24 22:24 | Observation (INO) | payer OTHER, SELFPAY ==
--- NOTE | 2023-09-24 | ECG_ITS ---
Test Reason : WEAKNESS Blood Pressure : / mmHG Vent. Rate : 065 BPM Atrial Rate : 065 BPM P-R Int : 140 ms QRS Dur : 108 ms QT Int : 482 ms P-R-T Axes : 049 -02 130 degrees QTc Int : 501 ms Normal sinus rhythm with sinus arrhythmia Voltage criteria for left ventricular hypertrophy ( R in aVL , Sokolow-Moreno , Shayan product ) Cannot rule out Anterior infarct , age undetermined ST & T wave abnormality, consider lateral ischemia Prolonged QT Abnormal ECG When compared with ECG of 29-APR-2023 00:21, T wave inversion less evident in Anterior leads T wave inversion more evident in Lateral leads Referred By: Generic ED Physician Electronically Signed By:GAIL BANERJEE MD
--- NOTE | ~2023-09-24 | XR_ITS ---
EXAMINATION: XR CHEST CLINICAL INFORMATION: Cough COMPARISON: 10/19/2022 TECHNIQUE: 2 views of the chest were obtained. FINDINGS: Left chest wall single lead pacemaker. Normal symmetric lung volumes. No parenchymal consolidation. No pleural effusion. No pneumothorax. Cardiomediastinal silhouette and pulmonary vascularity are within normal limits. No acute osseous abnormalities. XR/XR chest 2V IMPRESSION: No evidence of pneumonia.
[2023-09-24 22:32] VITALS: BP 106/66; BP 137/70; PULSE 104; PULSE 86; RESP 15; TEMP 36.7; O2SAT 94; O2SAT 98; BMI 25.0
[2023-09-24 22:48] LABS: Glucose, Whole Blood 83 mg/dL (60-115)
--- NOTE | 2023-09-24 23:00 | PC.NURSE ---
pt arrived in ed placed on cardiac rehab nurse, security to bedside for pattern changer pt denies si/hi belongings placed in decon due to pt admitting to using 2 bags of heroin prior to arrival in ed. pt provided pacemaker card for [employer]. this rn contacted human resources representative for [employer] - rep to call provider back
[2023-09-24 23:02] LABS: MANUAL DIFF FLAG NO
[2023-09-24 23:04] LABS: Basophils Absolute Auto 0.1 X10*3/uL (0.0-0.2); Basophils Percent Auto 0.8 % (0-2); Eosinophils Absolute Auto 0.5 X10*3/uL (0.0-0.4); Hematocrit 36.3 % (42.0-52.0); Hemoglobin 11.8 g/dl (14.0-18.0); Imm Gran Abs Auto 0.04 X10*3/uL (0.00-0.03); Imm Gran Pct Auto 0.3 % (0.0-0.4); Lymphocytes Absolute Auto 2.1 X10*3/uL (1.2-4.9); Lymphocytes Percent Auto 16.3 % (20-40); Mean Corpuscular HGB Conc 32.5 g/dl (31.0-36.0); Mean Corpuscular Hemoglobin 30.1 pg (27.0-33.0); Mean Corpuscular Volume 92.6 fL (80.0-98.0); Mean Platelet Volume 9.9 fL (9.4-12.4); Monocytes Percent Auto 7.9 % (2-11); Neutrophils Absolute Auto 9.2 x10*3/uL (2.0-8.3); Neutrophils Percent Auto 70.7 % (45-73); Platelet Count 274 X10*3/uL (160-400); Red Blood Count 3.92 X10*6/uL (4.60-5.80); Red Cell Distribution Width 13.5 % (11.0-16.0); White Blood Count 13.1 X10*3/uL (4.8-10.8)
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
[2023-09-24 23:34] LABS: Troponin-I High Sensitivity 17.8 ng/L (<3.5-35.0)
[2023-09-24 23:52] LABS: Anion Gap 15 (12-20)
[2023-09-24 23:56] LABS: Blood Urea Nitrogen 16 mg/dL (9-16); Calcium 9.2 mg/dL (8.4-10.2); Carbon Dioxide 22 mmol/L (22-29); Chloride 102 mmol/L (96-108); Creatinine Clr Calc Pharmacy 84.9; Estimated Glomerular Filt Rate > 60; Glucose Random 82 mg/dL (60-115); Sodium 135 mmol/L (135-145)
--- NOTE | 2023-09-24 23:56 | MHC.EDTECH ---
Beto wrap placed on right hand per verbal order of Dr. Trujillo.
[2023-09-25] VITALS (7 sets, daily range): BP systolic 93–126; BP diastolic 48–73; PULSE 60–83; RESP 12–20; TEMP 36.2–36.7; O2SAT 96–98
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
[2023-09-25 01:06] LABS: Magnesium 1.5 mg/dL (1.6-2.6)
[2023-09-25 01:14] LABS: Troponin-I High Sensitivity 15.9 ng/L (<3.5-35.0)
[2023-09-25 02:18] LABS: Hematocrit 34.8 % (42.0-52.0); Hemoglobin 11.1 g/dl (14.0-18.0); Mean Corpuscular HGB Conc 31.9 g/dl (31.0-36.0); Mean Corpuscular Hemoglobin 29.7 pg (27.0-33.0); Mean Platelet Volume 9.4 fL (9.4-12.4); Platelet Count 243 X10*3/uL (160-400); Red Blood Count 3.74 X10*6/uL (4.60-5.80); Red Cell Distribution Width 13.6 % (11.0-16.0); White Blood Count 10.4 X10*3/uL (4.8-10.8)
[2023-09-25 02:33] LABS: Anion Gap 16 (12-20); Blood Urea Nitrogen 14 mg/dL (9-16); Calcium 8.9 mg/dL (8.4-10.2); Carbon Dioxide 22 mmol/L (22-29); Chloride 102 mmol/L (96-108); Estimated Glomerular Filt Rate > 60; Glucose Random 99 mg/dL (60-115); Potassium 3.3 mmol/L (3.3-5.1); Sodium 137 mmol/L (135-145)
[2023-09-25 02:52] LABS: Thyroid Stimulating Hormone 0.77 uIU/mL (0.32-4.0)
--- NOTE | 2023-09-25 03:24 | PC.NURSE ---
this rn attempting to get urine sample from pt at which time pt sat up and stood up from ed stretcher, drug paraphernalia found to be under pt. pt declines knowledge of findings. charge loader and clinical coordinator aware. security to bedside to confiscate pt able to provide urine sample, sample sent to lab
[2023-09-25 03:31] LABS: Amphetamine Screen Urine Not Detected (Not Detect); Barbiturates, Urine Not Detected (Not Detect); Benzodiazepines Screen Urine Not Detected (Not Detect); Cannabinoid Screen Urine POSITIVE (Not Detect); Cocaine Screen Urine POSITIVE (Not Detect); Fentanyl, urine POSITIVE (Not Detect); Opiate Screen Urine Not Detected (Not Detect); Phencyclidine Screen Urine Not Detected (Not Detect)
[2023-09-25 06:09] LABS: Magnesium 1.9 mg/dL (1.6-2.6)
--- NOTE | 2023-09-25 07:00 | CA_ITS ---
Transthoracic Echocardiogram Patient (Last, First, Middle): Laron Mcclain J Gender: Male Date of : 1975 Age: 48 Procedure Date: 09/25/2023 Procedure Type: Transthoracic Echocardiogram Location: ER Height: 175.26 cm Weight: 76.66 kg BSA: 1.92 m2 Heart Rate: bpm BP: 100 / 48 mmHg Foundry Supervisor: SOFIE/MARSHALL Referring MD: Yomi Vail MD [employer] Section Foreman: Wilfrid Benavides MD Symptoms: Defibrillator discharge Study Quality: Adequate ECG Rhythm: Bradycardia Conclusions: - 1. Normal LV ejection fraction 55-60% with mild LVH 2. Normal cardiac valvular Doppler 3. Normal RV systolic pressure 4. No gross pericardial effusion Findings Left Ventricle Normal left ventricular size and systolic function. There is mildly increased left ventricular wall thickness. The visually estimated ejection fraction is between 55-60%. Spectral Doppler is indicative of a normal filling pattern. Peak GLS is -16.1%, which is mildly reduced. Right Ventricle Normal right ventricular cavity size and systolic function. Atria The left atrium is normal in size. Interatrial shunt cannot be excluded. The right atrium is normal in size. Aortic Valve Normal aortic valve structure and function. There is no aortic valve stenosis. There is no aortic valve regurgitation. Mitral Valve Normal mitral valve structure and function. There is trace mitral valve regurgitation. There is no mitral valve stenosis. Pulmonic Valve The pulmonic valve is likely normal. Tricuspid Valve Normal tricuspid valve structure. There is trace tricuspid valve regurgitation. The right ventricular systolic pressure is normal. The right ventricular systolic pressure is 25 mmHg. Normal right atrial pressure. There is no evidence of pulmonary hypertension. Great Vessels All visible segments of the aorta are normal in size. The pulmonary artery was not well visualized. Venous The inferior vena cava is normal in size and collapses greater than 50% with inspiration. Pericardium/Pleural There is no evidence of pericardial effusion. Prior Study Comparison No prior study available for comparison. Measurements 2D Linear Measurements IVSd: 1.20 0.6-0.9/0.6-1.0 cm LVIDd: 5.73 3.9-5.3/4.2-5.9 cm LVIDd Index: 2.98 2.4-3.2/2.2-3.1 cm/m2 LVIDs: 3.57 2.0-3.6 cm LVPWd: 1.32 0.7-1.1 cm LA Diam: 3.70 2.7-3.8/3.0-4.0 cm LAIDs Index: 1.93 1.5-2.3 cm/m2 LV Mass: 388.32 67-162/88-224 g LV Mass Index: 202.25 43-95/49-115 g/m2 LVOT Diam: 2.50 3.0+(-)1.3 cm 2D Systolic Function EF 4C: 56.50 >55% EF 2C: 62.40 >55% EF BiP: 60.10 >55% Mitral Valve MV Pk E: 0.60 MV PK A: 0.58 MV Decel Time: 274.00 E/A: 1.00 E'Lateral: 6.53 E'Medial: 8.38 E/E' Med: 7.20 E/E' Lat: 9.20 PHT: 80.00 MVA PHT: 2.75 Decel [place]: 2.21 Aortic Valve AoV Pk Ash: 1.61 AoV Pk Grad: 10.00 LORENA: 3.45 LVOT LVOT Pk Ash: 1.13 LVOT Mn Ash: 0.75 LVOT VTI: 0.21 LVOT Pk Grad: 5.00 LVOT Mn Grad: 3.00 LVOT Diam: 2.50 LVOT Area: 4.91 Diastolic Function MV Pk E: 0.60 MV Pk A: 0.58 E/A: 1.00 E'Medial: 8.38 E/E' Med: 7.20 E' Laterial: 6.53 E/E' Lat: 9.20 Right Ventricle TAPSE (mm): 21.90 TVS' Ash: 16.80 Tricuspid Valve TR Pk Ash: 2.32 TR Pk Grad: 22.00 RA Press: 3.00 RVSP: 25.00 Great Vessels Aorta Sinus of Valsalva: 3.30 2.0-3.5 cm Ao Asc: 3.40 2.1-3.4 cm Updated in Other Vendor System with Status of Final Wilfrid Benavides MD electronically signed on 09/25/2023 11:47:20 AM with status of Final
--- NOTE | 2023-09-25 07:26 | PC.NURSE ---
Patient asleep on stretcher, resting in a position of comfort. Respirations equal and unlabored, SR 60's on tele. Call fernandez within reach.
[2023-09-25] MEDS: Enoxaparin Sodium 40 MG/0.4 ML SYRINGE SUBCUT (08:24)
[2023-09-25] MEDS: 0.9 % Sodium Chloride Flush 3 ML SYRINGE IVFLUSH ×3 (08:25→19:44)
--- NOTE | 2023-09-25 08:45 | PHA.MEDREC ---
Pharmacy Consult ? Medication Reconciliation Pharmacy has completed the medication reconciliation. Spoke to patient's Olga Lidia ([phone]) to confirm patient's meds. The patient and his are both Slovak-speaking only.
--- NOTE | 2023-09-25 10:21 | HO.PM.IMPN ---
Subjective Subjective Date of Service: 09/25/23 Physical Exam Vital Signs: Vital Signs: Last Vital Signs Temp 97.9 F 09/25/23 06:21 Pulse 60 09/25/23 06:21 Resp 12 09/25/23 06:21 BP 100/48 L 09/25/23 06:21 Pulse Ox 96 09/25/23 06:21 O2 Del Method Room Air 09/25/23 06:21 BMI result Body Mass Index 25.0 Objective Data Active Medications Acetaminophen (Acetaminophen 325 Mg Tablet) 650 mg PO Q6H PRN PRN Reason: Pain, Mild (Pain Scale 1-3) Amiodarone HCl (Amiodarone Hcl 200 Mg Tablet) 400 mg PO DAILY [facility] Carvedilol (Carvedilol 12.5 Mg Tablet) 12.5 mg PO DAILY [facility]; Protocol Carvedilol (Carvedilol 6.25 Mg Tablet) 6.25 mg PO DAILY [facility]; Protocol Enoxaparin Sodium (Enoxaparin Sodium 40 Mg/0.4 Ml Syringe) 40 mg SUBCUT Q24H [facility] Last Admin: 09/25/23 08:24 Dose: 40 mg Documented By: JOHNNY Furosemide (Furosemide 20 Mg Tablet) 20 mg PO DAILY [facility]; Protocol Levothyroxine Sodium (Levothyroxine Sodium 75 Mcg Tablet) 75 mcg PO DAILY@0600 [facility] Melatonin (Melatonin 3 Mg Tablet) 6 mg PO BEDTIME PRN PRN Reason: Insomnia Ondansetron HCl (Ondansetron Hcl 4 Mg/2 Ml Vial) 4 mg IVPUSH Q8H PRN PRN Reason: Nausea and Vomiting Sodium Chloride (0.9 % Sodium Chloride Flush 3 Ml Syringe) 3 ml IVFLUSH QSHIFT [facility] Last Admin: 09/25/23 08:25 Dose: 3 ml Documented By: JOHNNY Valsartan (Valsartan 40 Mg Tablet) 40 mg PO BID [facility]; Protocol Labs 09/25/23 02:11 09/25/23 02:11 Labs: Laboratory Results - last 24 hr 09/24/23 09/24/23 09/25/23 22:44 22:56 02:11 MCV 92.6 93.0 MCH 30.1 29.7 MCHC 32.5 31.9 RDW 13.5 13.6 Plt Count 274 243 MPV 9.9 9.4 Immature Gran % (Auto) 0.3 Neut % (Auto) 70.7 Lymph % (Auto) 16.3 L [place] % (Auto) 7.9 Eos % (Auto) 4.0 Baso % (Auto) 0.8 Lymph # (Auto) 2.1 [place] # (Auto) 1.0 Eos # (Auto) 0.5 H Baso # (Auto) 0.1 Abs Immat Gran (auto) 0.04 H Absolute Neuts (auto) 9.2 H Absolute Nucleated RBC 0.000 0.000 Nucleated RBC % (auto) 0.0 0.0 Anion Gap 15 16 Estim Creat Clear Calc 84.9 93.0 Estimated GFR > 60 > 60 POC Glucose 83 Random Glucose 82 99 Calcium 9.2 8.9 Magnesium 1.5 L TSH 0.77 Urine Opiates Screen Urine Fentanyl Screen Ur Barbiturates Screen Ur Phencyclidine Scrn Ur Amphetamines Screen U Benzodiazepines Scrn Urine Cocaine Screen U Marijuana (THC) Screen 09/25/23 09/25/23 03:18 05:49 MCV MCH MCHC RDW Plt Count MPV Immature Gran % (Auto) Neut % (Auto) Lymph % (Auto) [place] % (Auto) Eos % (Auto) Baso % (Auto) Lymph # (Auto) [place] # (Auto) Eos # (Auto) Baso # (Auto) Abs Immat Gran (auto) Absolute Neuts (auto) Absolute Nucleated RBC Nucleated RBC % (auto) Anion Gap Estim Creat Clear Calc Estimated GFR POC Glucose Random Glucose Calcium Magnesium 1.9 TSH Urine Opiates Screen Not Detected Urine Fentanyl Screen POSITIVE H Ur Barbiturates Screen Not Detected Ur Phencyclidine Scrn Not Detected Ur Amphetamines Screen Not Detected U Benzodiazepines Scrn Not Detected Urine Cocaine Screen POSITIVE H U Marijuana (THC) Screen POSITIVE H Quality Stroke Does the patient have a stroke diagnosis?: No VTE Prior VTE?: No VTE Risk Level:: Medical - moderate - high VTE Device Contraindication: Treatment Not Indicated VTE Drug Contraindication: N/A - Med Ordered
[2023-09-25] MEDS: Amiodarone HCL 200 MG TABLET 400 MG PO ×2 (10:25→19:41)
[2023-09-25] MEDS: carvediloL 12.5 MG TABLET PO (10:25)
[2023-09-25] MEDS: Magnesium Oxide 400 MG TABLET 800 MG PO (10:26)
[2023-09-25] MEDS: carvediloL 6.25 MG TABLET PO (10:26)
[2023-09-25] MEDS: Furosemide 20 MG TABLET PO (10:27)
[2023-09-25] MEDS: Valsartan 40 MG TABLET PO ×2 (10:27→19:41)
[2023-09-25] MEDS: Potassium Chloride ER 20 MEQ TAB.ER.PRT 40 MEQ PO (10:28)
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
--- NOTE | 2023-09-25 13:05 | HO.ADDICTCON ---
History of Present Illness Date of Service: 09/25/2023 Chief Complaint: Defibrillator shocks Sources of Information: patient interviewed and chart reviewed HPI Narrative: Patient is a 48 year old Sinhala speaking male with history of heart failure and defibralator in place. Currently medically admitted after he reported his defibrilator had discharged several times within the last few days. Consult requested as UDS was +for fentanyl, cocaine and opiates. Documentation also shows that drug paraphernalia was found in his bed while in the ED. Patient seen in room 476. Laying in bed, eyes closed, but wakes easily to voice. Reporting he does not currently use substances it was just that one time . Denies any withdrawal sx. Did acknowledge history of use and history in treatment. This keno writer voiced concerns regarding cardiac history and current implanted device and ongoing substance use--patient nodded and said he was not concerned about it because it was just one time. Chart review shows patient presented to ED this summer following substance use. Patient then pulled blankets up, and rolled over stating that if he needs help he knows how to access it. Review of Systems Constitutional: Reports as per HPI and Reports no additional constitutional complaints Diagnostics Vital Signs (24Hr): Vital Signs - 24 hr 09/24/23 22:32 09/25/23 00:22 09/25/23 06:21 Temperature 98.1 F 98.0 F 97.9 F Pulse Rate 86 75 60 Respiratory Rate 15 13 12 Blood Pressure 106/66 124/62 100/48 L Pulse Oximetry 94 96 96 Oxygen Delivery Method Room Air Room Air Room Air 09/25/23 10:59 09/25/23 11:51 Temperature 97.7 F 97.2 F Pulse Rate 67 68 Respiratory Rate 20 20 Blood Pressure 120/73 102/59 L Pulse Oximetry 98 96 Oxygen Delivery Method Room Air Room Air BMI result Body Mass Index 25.0 Labs 09/25/23 02:11 09/25/23 02:11 Labs: Laboratory Results - last 48 hr 09/24/23 09/24/23 09/25/23 22:44 22:56 00:43 WBC 13.1 H RBC 3.92 L Hgb 11.8 L Hct 36.3 L MCV 92.6 MCH 30.1 MCHC 32.5 RDW 13.5 Plt Count 274 MPV 9.9 Immature Gran % (Auto) 0.3 Neut % (Auto) 70.7 Lymph % (Auto) 16.3 L [place] % (Auto) 7.9 Eos % (Auto) 4.0 Baso % (Auto) 0.8 Lymph # (Auto) 2.1 [place] # (Auto) 1.0 Eos # (Auto) 0.5 H Baso # (Auto) 0.1 Abs Immat Gran (auto) 0.04 H Absolute Neuts (auto) 9.2 H Absolute Nucleated RBC 0.000 Nucleated RBC % (auto) 0.0 Sodium 135 Potassium 4.0 Chloride 102 Carbon Dioxide 22 Anion Gap 15 BUN 16 Creatinine 1.04 Estim Creat Clear Calc 84.9 Estimated GFR > 60 POC Glucose 83 Random Glucose 82 Calcium 9.2 Magnesium 1.5 L Troponin I High Sens 17.8 15.9 TSH Urine Opiates Screen Urine Fentanyl Screen Ur Barbiturates Screen Ur Phencyclidine Scrn Ur Amphetamines Screen U Benzodiazepines Scrn Urine Cocaine Screen U Marijuana (THC) Screen 09/25/23 09/25/23 09/25/23 02:11 03:18 05:49 WBC 10.4 RBC 3.74 L Hgb 11.1 L Hct 34.8 L MCV 93.0 MCH 29.7 MCHC 31.9 RDW 13.6 Plt Count 243 MPV 9.4 Immature Gran % (Auto) Neut % (Auto) Lymph % (Auto) [place] % (Auto) Eos % (Auto) Baso % (Auto) Lymph # (Auto) [place] # (Auto) Eos # (Auto) Baso # (Auto) Abs Immat Gran (auto) Absolute Neuts (auto) Absolute Nucleated RBC 0.000 Nucleated RBC % (auto) 0.0 Sodium 137 Potassium 3.3 Chloride 102 Carbon Dioxide 22 Anion Gap 16 BUN 14 Creatinine 0.95 Estim Creat Clear Calc 93.0 Estimated GFR > 60 POC Glucose Random Glucose 99 Calcium 8.9 Magnesium 1.9 Troponin I High Sens TSH 0.77 Urine Opiates Screen Not Detected Urine Fentanyl Screen POSITIVE H Ur Barbiturates Screen Not Detected Ur Phencyclidine Scrn Not Detected Ur Amphetamines Screen Not Detected U Benzodiazepines Scrn Not Detected Urine Cocaine Screen POSITIVE H U Marijuana (THC) Screen POSITIVE H Imaging Radiology Impressions: ITS Impressions Chest X-Ray 09/25/23 01:33 IMPRESSION: No evidence of pneumonia. Mental Status Exam Mental Status Exam Level of Consciousness: Awake Patient Behavior: Guarded Medications Medications Current Medications Acetaminophen (Acetaminophen 325 Mg Tablet) 650 mg PO Q6H PRN PRN Reason: Pain, Mild (Pain Scale 1-3) Amiodarone HCl (Amiodarone Hcl 200 Mg Tablet) 400 mg PO BID [facility] Carvedilol (Carvedilol 12.5 Mg Tablet) 12.5 mg PO DAILY [facility]; Protocol Last Admin: 09/25/23 10:25 Dose: 12.5 mg Carvedilol (Carvedilol 6.25 Mg Tablet) 6.25 mg PO DAILY [facility]; Protocol Last Admin: 09/25/23 10:26 Dose: 6.25 mg Enoxaparin Sodium (Enoxaparin Sodium 40 Mg/0.4 Ml Syringe) 40 mg SUBCUT Q24H [facility] Last Admin: 09/25/23 08:24 Dose: 40 mg Furosemide (Furosemide 20 Mg Tablet) 20 mg PO DAILY [facility]; Protocol Last Admin: 09/25/23 10:27 Dose: 20 mg Levothyroxine Sodium (Levothyroxine Sodium 75 Mcg Tablet) 75 mcg PO DAILY@0600 [facility] Melatonin (Melatonin 3 Mg Tablet) 6 mg PO BEDTIME PRN PRN Reason: Insomnia Ondansetron HCl (Ondansetron Hcl 4 Mg/2 Ml Vial) 4 mg IVPUSH Q8H PRN PRN Reason: Nausea and Vomiting Sodium Chloride (0.9 % Sodium Chloride Flush 3 Ml Syringe) 3 ml IVFLUSH QSHIFT [facility] Last Admin: 09/25/23 08:25 Dose: 3 ml Valsartan (Valsartan 40 Mg Tablet) 40 mg PO BID [facility]; Protocol Last Admin: 09/25/23 10:27 Dose: 40 mg Allergies Allergies Allergy/AdvReac Type Severity Reaction Status Date / Time No Known Allergies Allergy Verified 04/28/23 22:20 Assessment & Plan Assessment & Plan (1) Opioid use disorder: Status: Acute Code(s): F11.90 - Opioid use, unspecified, uncomplicated Assessment and Plan: patient declining intervetion, referrals or support--currently in pre-contemplative stage of change take home narcan at discharge Total time managing care of this patient today __20__ minutes. PMFSH Past Medical History Medical History Systolic heart failure Cardiac defibrillator in place Ventricular fibrillation Polysubstance use disorder Social History Social History Household Members: Other Housing: Homeless Do you presently have visiting nurse or other home services: No Unable to assess alcohol history related to: Refusing to respond Patient Tobacco Use Status: Current everyday Tobacco user Tobacco use type: Cigarette Cigarettes Per Day: 5 e-Cigarette/Vaping Use: Never Used Second Hand Smoke Exposure: No Substance Use Type: Crack/Cocaine, Heroin and Marijuana
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
[2023-09-25] MEDS: Lidocaine 4 % Patch ADH..PATCH 1 PATCH TRANSDERMA (14:59)
[2023-09-25] MEDS: Naloxone HCl Nasal TAKE HOME 4 MG SPRAY 8 MG NOSTRILALT (15:01)
--- NOTE | 2023-09-25 15:52 | MHC.CM.PN ---
Pt has been medically cleared for DC, his significant other came here and spoke to me to say that she and the children are living in a alf and he is not able to be there with them, and pt does not have any place to go. CM spoke to pt, via an interpreter and translator, and he was very sleepy, responding very little. CM contacted multiple local shelters and was told that there are no available beds. Provider notified, will keep pt here today and attempt to find a alf for him tomorrow.
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
[2023-09-26 03:50] VITALS: BP 118/68; PULSE 63; RESP 15; TEMP 36.4; O2SAT 98
[2023-09-26] MEDS: Levothyroxine Sodium 75 MCG TABLET PO (06:25)
[2023-09-26 06:57] VITALS: BP 129/76; PULSE 72; RESP 18; TEMP 37.1; O2SAT 94
[2023-09-26] MEDS: Amiodarone HCL 200 MG TABLET 400 MG PO ×2 (08:21→19:58)
[2023-09-26] MEDS: 0.9 % Sodium Chloride Flush 3 ML SYRINGE IVFLUSH ×3 (08:21→19:58)
[2023-09-26] MEDS: Valsartan 40 MG TABLET PO ×2 (08:21→19:57)
[2023-09-26] MEDS: Enoxaparin Sodium 40 MG/0.4 ML SYRINGE SUBCUT (08:21)
[2023-09-26 08:43] LABS: Anion Gap 13 (12-20); Blood Urea Nitrogen 10 mg/dL (9-16); Calcium 8.7 mg/dL (8.4-10.2); Carbon Dioxide 26 mmol/L (22-29); Chloride 105 mmol/L (96-108); Creatinine Clr Calc Pharmacy 116.2; Estimated Glomerular Filt Rate > 60; Glucose Random 97 mg/dL (60-115); Magnesium 1.9 mg/dL (1.6-2.6); Potassium 3.9 mmol/L (3.3-5.1); Sodium 140 mmol/L (135-145)
[2023-09-26 09:02] LABS: HBS Num1 0.32 mIU/mL (0-7.99); HBsAGNum1 0.39 S/CO (0.00-0.99); HIV AB/AG Nonreactive (Nonreactive); HIV Num 1 0.03 S/CO (0.00-0.99); Hepatitis B Core Antibody Nonreactive (Nonreactive); Hepatitis B Surface Antigen Negative (Negative); ~HepC Num1 0.19 S/CO (0.00-0.79); ~Hepatitis B Surface Antibody NONREACTIVE (Nonreactive); ~Hepatitis C Antibody Nonreactive (Nonreactive)
--- NOTE | 2023-09-26 09:39 | MHC.CM.PN ---
EMR REVIEWED, PT LOOKING FOR USP PLACEMENT, CM CONTACTED ALL LOCAL SHELTERS THIS AM W/NO BED FOUND, CM GIVEN DIRECTIONS FROM [facility] TO CALL BACK SUNDAY 09/30, CM WILL CONT TO FOLLOW.
[2023-09-26 10:58] VITALS: BP 115/71; PULSE 68; RESP 18; TEMP 36.4; O2SAT 95
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
--- NOTE | 2023-09-26 13:57 | MHC.RECOVRN ---
Met with pt this morning, along with high school football coach, to assess for opioid withdrawal. Pt laying in bed, awake, alert, briefly engages in conversation. Pt appears diaphoretic but otherwise comfortable. Pt reports abdominal pain, adamantly denies symptoms of withdrawal. Pt reports [facility]. Pt denies questions or concerns for t/w. Christina Robles APRN, and provider aware.
[2023-09-26 15:43] VITALS: BP 130/63; PULSE 70; RESP 15; TEMP 37.1; O2SAT 99
[2023-09-26] MEDS: Acetaminophen 325 MG TABLET 650 MG PO (17:12)
[2023-09-26 19:09] VITALS: BP 134/82; PULSE 74; RESP 20; TEMP 36.3; O2SAT 100
[2023-09-26] MEDS: Melatonin 3 MG TABLET 6 MG PO (20:01)
[2023-09-27] VITALS (7 sets, daily range): BP systolic 125–150; BP diastolic 73–83; PULSE 65–74; RESP 18–20; TEMP 36.1–37.2; O2SAT 98–100
[2023-09-27] MEDS: Levothyroxine Sodium 75 MCG TABLET PO (05:29)
[2023-09-27] MEDS: Amiodarone HCL 200 MG TABLET 400 MG PO ×2 (10:04→21:57)
[2023-09-27] MEDS: Valsartan 40 MG TABLET PO ×2 (10:05→21:57)
[2023-09-27] MEDS: Lidocaine 4 % Patch ADH..PATCH 1 PATCH TRANSDERMA (10:05)
[2023-09-27] MEDS: Enoxaparin Sodium 40 MG/0.4 ML SYRINGE SUBCUT (10:06)
[2023-09-27] MEDS: 0.9 % Sodium Chloride Flush 3 ML SYRINGE IVFLUSH ×3 (10:07→21:58)
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
[2023-09-27] MEDS: Melatonin 3 MG TABLET 6 MG PO ×2 (12:54→21:57)
[2023-09-27] MEDS: Acetaminophen 325 MG TABLET 650 MG PO ×2 (12:56→21:55)
[2023-09-28 04:00] VITALS: BP 116/76; PULSE 61; RESP 14; TEMP 36.4; O2SAT 99
[2023-09-28 04:11] VITALS: BP 116/76; PULSE 61; RESP 19; TEMP 36.4; O2SAT 99
[2023-09-28 07:44] VITALS: BP 139/85; PULSE 73; RESP 18; TEMP 36.8; O2SAT 99
[2023-09-28] MEDS: Valsartan 40 MG TABLET PO ×2 (07:59→21:19)
[2023-09-28] MEDS: 0.9 % Sodium Chloride Flush 3 ML SYRINGE IVFLUSH ×2 (07:59→09:44)
[2023-09-28] MEDS: Levothyroxine Sodium 75 MCG TABLET PO (07:59)
[2023-09-28] MEDS: Acetaminophen 325 MG TABLET 650 MG PO ×2 (07:59→21:24)
[2023-09-28] MEDS: Enoxaparin Sodium 40 MG/0.4 ML SYRINGE SUBCUT (07:59)
[2023-09-28] MEDS: Amiodarone HCL 200 MG TABLET 400 MG PO ×2 (07:59→21:19)
[2023-09-28] MEDS: Lidocaine 4 % Patch ADH..PATCH 1 PATCH TRANSDERMA (08:00)
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
[2023-09-28] MEDS: methADONE HCl 20 MG/2 ML ORAL.CONC PO (09:40)
[2023-09-28 11:06] VITALS: BP 119/63; PULSE 73; RESP 18; TEMP 36.9; O2SAT 98
[2023-09-28 15:18] VITALS: BP 125/67; PULSE 61; RESP 18; TEMP 36.7; O2SAT 98
[2023-09-28 20:00] VITALS: BP 131/80; PULSE 71; RESP 17; TEMP 36.6; O2SAT 99
[2023-09-28] MEDS: Melatonin 3 MG TABLET 6 MG PO (21:19)
[2023-09-29] VITALS (8 sets, daily range): BP systolic 109–140; BP diastolic 64–83; PULSE 56–68; RESP 16–19; TEMP 36.4–36.9; O2SAT 97–99
[2023-09-29] MEDS: 0.9 % Sodium Chloride Flush 3 ML SYRINGE IVFLUSH ×3 (01:21→08:38)
[2023-09-29] MEDS: ondansetron HCL 4 MG/2 ML VIAL IVPUSH (01:21)
[2023-09-29] MEDS: Benzonatate 100 MG CAPSULE 200 MG PO ×2 (01:42→08:25)
[2023-09-29] MEDS: Magnesium Hydrox/Alum Hydrox 30 ML ORAL.SUSP PO ×2 (01:42→08:25)
[2023-09-29] MEDS: Levothyroxine Sodium 75 MCG TABLET PO (06:25)
--- NOTE | 2023-09-29 08:00 | ECG_ITS ---
Test Reason : check QT Blood Pressure : / mmHG Vent. Rate : 058 BPM Atrial Rate : 058 BPM P-R Int : 154 ms QRS Dur : 108 ms QT Int : 522 ms P-R-T Axes : 053 019 129 degrees QTc Int : 512 ms Sinus bradycardia Incomplete left bundle branch block Left ventricular hypertrophy with repolarization abnormality ( Sokolow-Moreno , Shayan product , Romhilt-Jackson ) Prolonged QT Abnormal ECG No previous ECGs available Referred By: Nava Bryson Electronically Signed By:TAB LEMON
[2023-09-29] MEDS: Acetaminophen 325 MG TABLET 650 MG PO ×2 (08:26→21:44)
[2023-09-29] MEDS: Valsartan 40 MG TABLET PO ×2 (08:26→21:44)
[2023-09-29] MEDS: Enoxaparin Sodium 40 MG/0.4 ML SYRINGE SUBCUT (08:26)
[2023-09-29] MEDS: Lidocaine 4 % Patch ADH..PATCH 1 PATCH TRANSDERMA (08:27)
[2023-09-29] MEDS: methADONE HCl 20 MG/2 ML ORAL.CONC PO (08:27)
[2023-09-29] MEDS: Amiodarone HCL 200 MG TABLET 400 MG PO (08:29)
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
--- NOTE | 2023-09-29 16:07 | PC.NURSE ---
Per Dr. Adelaide nolan to keep patient without IV access at this time.
[2023-09-29] MEDS: Melatonin 3 MG TABLET 6 MG PO (21:44)
[2023-09-30 04:00] VITALS: BP 105/64; PULSE 54; RESP 18; TEMP 36.2; O2SAT 97
[2023-09-30] MEDS: Levothyroxine Sodium 75 MCG TABLET PO (05:51)
[2023-09-30 07:21] VITALS: BP 114/63; PULSE 59; RESP 18; TEMP 36.7; O2SAT 97
--- NOTE | 2023-09-30 08:00 | ECG_ITS ---
Test Reason : QTC CHECK Blood Pressure : / mmHG Vent. Rate : 055 BPM Atrial Rate : 055 BPM P-R Int : 140 ms QRS Dur : 110 ms QT Int : 530 ms P-R-T Axes : -26 013 162 degrees QTc Int : 507 ms Sinus bradycardia Moderate voltage criteria for LVH, may be normal variant ( Sokolow-Moreno , [place] product ) ST & T wave abnormality, consider inferior ischemia ST & T wave abnormality, consider anterolateral ischemia (vs LVH/repolarization) Prolonged QT Abnormal ECG When compared with ECG of 29-SEP-2023 08:19, No significant change was found Referred By: Nava Bryson Electronically Signed By:TAB LEMON
[2023-09-30] MEDS: Valsartan 40 MG TABLET PO ×2 (08:08→21:54)
[2023-09-30] MEDS: Enoxaparin Sodium 40 MG/0.4 ML SYRINGE SUBCUT (08:08)
[2023-09-30] MEDS: methADONE HCl 20 MG/2 ML ORAL.CONC PO (08:08)
[2023-09-30] MEDS: Acetaminophen 325 MG TABLET 650 MG PO (08:11)
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
[2023-09-30 11:31] VITALS: BP 113/58; PULSE 68; RESP 18; TEMP 36.6; O2SAT 97
[2023-09-30 14:56] VITALS: BP 138/81; PULSE 76; RESP 20; TEMP 36.1; O2SAT 99
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
--- NOTE | 2023-09-30 15:49 | HO.ADDICTPRO ---
Subjective Subjective Date of Service: 09/30/23 Reason For Visit: Defibrillator shocks Interim History: Patient seen in follow up On 09/28 patient reported withdrawal sx to attending provider and methadone 20mg ordered and administered with positive effect. Over the Holiday wkend this procedure writer communicated with patient's nurse to assess patient's response to methadone dose, which per RN was effective in managing withdrawal. Seen this morning in room 482. Awake, alert, pleasant and engaged in interview. Reports methadone dose while effective, is lower than his previous dose of 45mg. Discussed substance use prior to admission and patient states it was very little, one, maybe 2 bags at most . Prior to seeing patient chart was reviewed and 2 EKGs completed showed prolonged QT. Discussed with patient concerns related to increasing dose as at this time. Presented Buprenorphine as an option. Discussed medication goals, dose administration, side effects. He reports he has never taken suboxone, but would be open to it. Reviewed need to D/C methadone and wait 48 hours before starting medication. Patient agreeable. Review of Systems Constitutional: Reports as per HPI and Reports no additional constitutional complaints Mental Status Exam Mental Status Exam Patient Appearance: Well Grooomed and Appropriate Level of Consciousness: Awake, Appropriate and Alert Patient Behavior: Appropriate, Talkative and Cooperative Mood Description: Calm Diagnostics Vital Signs (24Hr): Vital Signs - 24 hr 09/29/23 16:00 09/29/23 18:57 09/29/23 23:32 Temperature 97.8 F 98.2 F 97.5 F Pulse Rate 59 60 56 Respiratory Rate 18 17 18 Blood Pressure 135/71 114/71 109/66 Pulse Oximetry 98 97 97 Oxygen Delivery Method Room Air Room Air Room Air 09/30/23 04:00 09/30/23 07:21 09/30/23 11:31 Temperature 97.2 F 98.1 F 97.8 F Pulse Rate 54 59 68 Respiratory Rate 18 18 18 Blood Pressure 105/64 114/63 113/58 L Pulse Oximetry 97 97 97 Oxygen Delivery Method Room Air Room Air Room Air 09/30/23 14:56 Temperature 96.9 F Pulse Rate 76 Respiratory Rate 20 Blood Pressure 138/81 Pulse Oximetry 99 Oxygen Delivery Method Room Air BMI result Body Mass Index 25.0 Labs 09/25/23 02:11 09/26/23 08:09 Imaging Radiology Impressions: ITS Impressions Chest X-Ray 09/25/23 01:33 IMPRESSION: No evidence of pneumonia. Medications Medications Current Medications Acetaminophen (Acetaminophen 325 Mg Tablet) 650 mg PO Q6H PRN PRN Reason: Pain, Mild (Pain Scale 1-3) Last Admin: 09/30/23 08:11 Dose: 650 mg Al Hydroxide/Mg Hydroxide (Magnesium Hydrox/Alum Hydrox 30 Ml Oral.Susp) 30 ml PO Q6H PRN PRN Reason: Heartburn Last Admin: 09/29/23 08:25 Dose: 30 ml Benzonatate (Benzonatate 100 Mg Capsule) 200 mg PO TID PRN PRN Reason: Cough Last Admin: 09/29/23 08:25 Dose: 200 mg Enoxaparin Sodium (Enoxaparin Sodium 40 Mg/0.4 Ml Syringe) 40 mg SUBCUT Q24H [facility] Last Admin: 09/30/23 08:08 Dose: 40 mg Levothyroxine Sodium (Levothyroxine Sodium 75 Mcg Tablet) 75 mcg PO DAILY@0600 [facility] Last Admin: 09/30/23 05:51 Dose: 75 mcg Lidocaine (Lidocaine 4 % Patch Adh..Patch) 1 patch TRANSDERMA DAILY [facility]; Protocol Last Admin: 09/30/23 08:08 Dose: Not Given Melatonin (Melatonin 3 Mg Tablet) 6 mg PO BEDTIME [facility] Last Admin: 09/29/23 21:44 Dose: 6 mg Ondansetron HCl (Ondansetron Hcl 4 Mg/2 Ml Vial) 4 mg IVPUSH Q8H PRN PRN Reason: Nausea and Vomiting Last Admin: 09/29/23 01:21 Dose: 4 mg Sodium Chloride (0.9 % Sodium Chloride Flush 3 Ml Syringe) 3 ml IVFLUSH QSHIFT [facility] Last Admin: 09/30/23 08:08 Dose: Not Given Valsartan (Valsartan 40 Mg Tablet) 40 mg PO BID [facility]; Protocol Last Admin: 09/30/23 08:08 Dose: 40 mg Allergies Allergies Allergy/AdvReac Type Severity Reaction Status Date / Time No Known Allergies Allergy Verified 04/28/23 22:20 Assessment & Plan Assessment & Plan (1) Opioid use disorder: Status: Acute Code(s): F11.90 - Opioid use, unspecified, uncomplicated Assessment and Plan: D/C methadone (last dose of 20mg 09/30) comfort medications as needed for withdrawal sx 10/02, as long as patient is showing signs of withdrawal, can start suboxone 2mg. IF tolerated and no issue, another 2mg can be administered one hour later. Total time managing care of this patient today _30__ minutes.
[2023-09-30 20:00] VITALS: BP 121/70; PULSE 74; RESP 20; TEMP 36.6; O2SAT 98
[2023-09-30] MEDS: Melatonin 3 MG TABLET 6 MG PO (21:54)
[2023-10-01] VITALS: BP 121/73; PULSE 69; RESP 20; TEMP 36.1; O2SAT 98
[2023-10-01] MEDS: Magnesium Hydrox/Alum Hydrox 30 ML ORAL.SUSP PO ×3 (02:25→22:56)
[2023-10-01 03:57] VITALS: BP 125/73; PULSE 72; RESP 20; TEMP 36.6; O2SAT 96
[2023-10-01] MEDS: Levothyroxine Sodium 75 MCG TABLET PO (06:26)
[2023-10-01 07:25] VITALS: BP 132/78; PULSE 76; RESP 20; TEMP 36.2; O2SAT 98
[2023-10-01] MEDS: Enoxaparin Sodium 40 MG/0.4 ML SYRINGE SUBCUT (09:42)
[2023-10-01] MEDS: Valsartan 40 MG TABLET PO ×2 (09:43→20:04)
[2023-10-01 11:19] VITALS: BP 118/61; PULSE 71; RESP 18; TEMP 36.4; O2SAT 97
[2023-10-01 15:26] VITALS: BP 105/65; PULSE 72; RESP 18; TEMP 36.6; O2SAT 97
--- NOTE | 2023-10-01 16:08 | MHC.RECOVRN ---
Chart reviewed, discussed plan to initiate Suboxone on 10/02 with pts RN. Per RN, no withdrawal symptoms today. RN to continue to monitor for withdrawal symptoms.
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
[2023-10-01] MEDS: Melatonin 3 MG TABLET 6 MG PO (20:05)
[2023-10-01] MEDS: 0.9 % Sodium Chloride Flush 3 ML SYRINGE IVFLUSH (20:05)
[2023-10-01 20:14] VITALS: BP 110/70; PULSE 75; RESP 20; TEMP 36.4; O2SAT 98
[2023-10-02 03:35] VITALS: BP 110/66; PULSE 68; RESP 18; TEMP 36.3; O2SAT 97
[2023-10-02] MEDS: Levothyroxine Sodium 75 MCG TABLET PO (06:24)
[2023-10-02 07:25] VITALS: BP 118/64; PULSE 66; RESP 20; TEMP 36.6; O2SAT 95
[2023-10-02] MEDS: Valsartan 40 MG TABLET PO (08:18)
[2023-10-02] MEDS: Enoxaparin Sodium 40 MG/0.4 ML SYRINGE SUBCUT (08:18)
--- NOTE | 2023-10-02 08:37 | MHC.CM.PN ---
Addendum entered by Abbie Kraus RN 10/02/23 11:29: NO [facility] BED FOUND IN [facility] [place]. CM CONTACTED [facility], [facility] NUMBER IS [facility]ORY [facility] WHICH HAD BEEN CALLED PREVIOUSLY BY CM, THEY DID REPORT [facility] IS OPEN FOR FREE LUNCH/DINNER M-F AND BAG LUNCHES ON W/E'S. CM ATTEMPTED TO CONTACT THE FOLLOWING SHELTERS IN [facility], [facility], [facility], [facility], [facility], [email or web address] TRANSITIONAL ASSISTANCE, [employer] [facility], [facility] W/NO BEDS/ NUMBER NO LONGER IN SERVICE OR UNABLE TO LEAVE MESSAGE. CM WILL ATTEMPT TO CONTACT [facility] Original Note: CM CONTACTED [facility] AT 8:34AM, PER STAFF PT IS ABLE TO RETURN HOWEVER THERE CURRENTLY ARE NO BEDS AVAILABLE. CM ATTEMPTED TO CONTACT [facility] AT [phone] AND NO ANSWER, DETAILED MESSAGE LEFT W/CM CALL BACK NUMBER. CM CONTACTED [facility] AT 8:40AM [phone] AND THEY ARE NOT TAKING ANYONE UNTIL 10/07/23. CM CONTACTED [facility] AT 8:43AM AND STAFF REPORTS NO OPEN BEDS. CM WILL CONT SEARCH IN [facility] AREA
--- NOTE | 2023-10-02 09:31 | MHC.CM.PN ---
Addendum entered by Tere Clay 10/02/23 09:48: This CM contacted [facility] in [place], they do not have an appropriate bed as it is a sober living house, and suggested we call the [facility]. This CM attempted to contact [facility] in [place] (3 different numbers x multiple attempts), and unable to reach anyone. Original Note: This CM contacted [facility] @9:30, and they do not have any male beds available, and stated to call back to check tomorrow morning at 9:30am.
[2023-10-02 10:57] VITALS: BP 108/62; PULSE 68; RESP 20; TEMP 36.9; O2SAT 96
--- NOTE | 2023-10-02 12:23 | MHC.RECOVRN ---
Met with pt to follow up and assess for withdrawal. Pt laying in bed, awake, alert, easily engages in conversation. Pt reporting diaphoresis, anxiety, restlessness, inability to sleep. Discussed with RN and provider, pt to receive 2 mg Suboxone and reassess.
--- NOTE | 2023-10-02 14:13 | PM.EVENT ---
Event Note Date of Service: 10/02/23 Event Note: discharge note: Patient's vital reviewed, patient denies any new complaints. Physical exam: Gen: in no acute distress Lungs: clear to auscultation bilaterally,no rales or wheezing Heart: regular rate and rhythm. Abd: soft, nt,nd ,bs present. Ext: no edema Skin: no cyanosis or edema Neuro: alert and oriented x3, no focal findings Psych: appropriate affect. discharge diagnosis :Defibrillator discharge. hospital course and plan:please see dc note from 09/25/23. Patient was only in the hospital for placement to [facility] but currently patient going home with his as per Project Construction Assistant Manager. In addition-adduction team plan to take him off methadone and start Suboxone. Time Spent With Patient Time: Total time managing care of this patient today ____ minutes.
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
[2023-10-02] MEDS: Buprenorphine HCL 2 MG TAB.SUBL SUBLINGUAL (14:18)
--- NOTE | 2023-10-02 14:25 | MHC.CM.PN ---
Addendum entered by Abbie Kraus RN 10/02/23 14:41: PT MET W/RECOVERY AND RN, PLAN FOR SUBOXONE AND PT WILL FOLLOW UP W/CONT'S TO DECLINE [facility] D/T HAVING TO LEAVE DURING THE DAY AND WILL DC TO STREET/'S CAR. PT PROVIDED W/[facility] LIST INCLUDING RESOURCE GUIDE. Original Note: CM CONTACTED [facility], PER [facility] STAFF PT WOULD NEED TO BE THERE BETWEEN 4-4:30 FOR BED, CM MET W/PT AND TICK SEWER, WHEN PT ASKED IF HE COULD STAY AT [facility] ALL DAY HE WAS REMINDED THAT HE COULD NOT AND WOULD NEED TO LEAVE BY 9AM IS THE RULE FOR [facility], PT BECAME UPSET AND WAS ASKING FOR CLOTHES AND CALLED HIS AND REPORTED TO BEAUTY ADVISOR THAT SHE IS COMING TO GET HIM. PER HOSPITALIST PT WILL NEED TO SEE RECOVERY TEAM THERE WERE GOING TO START HIM ON SUBOXONE, PT DID RECEIVE FIRST DOSE AND RECOVERY NURSE CURRENTLY MEETING W/PT. CM WILL CONFIRM W/PT'S SHE IS PICKING PT UP, IF NOT PT WILL BE PROVIDED W/BUS PASS AND [facility] LIST.
--- NOTE | 2023-10-02 15:33 | MHC.RECOVRN ---
Met with pt after being notified pt is discharging. Pt received 2 mg buprenorphine and would like to continue and follow up with the [facility]. Discussed with Abbie Raymond NP. Pt to be sent Suboxone prescription and to present as a walk in to the [facility] on 09/06 or 09/07. Provider aware.
== END 2023-10-02 15:16 | disposition home or self-care (01) ==
LOC: HO.ED 09-25 00:46 → HO.EDOVER 09-25 01:03 → HO.IMC 09-25 10:16
PROVIDERS: Family Medicine; Admitting Provider Student in an Organized Health Care Education/Training Program; Emergency Provider Student in an Organized Health Care Education/Training Program; Visit Provider Internal Medicine
DX: I50.20 Unspecified systolic (congestive) heart failure (principal); Z45.02 Encounter for adjustment and management of automatic implantable cardiac defibrillator; F11.90 Opioid use, unspecified, uncomplicated; I49.9 Cardiac arrhythmia, unspecified; G47.00 Insomnia, unspecified; Z95.810 Presence of automatic (implantable) cardiac defibrillator; Z59.00 Homelessness unspecified; Z79.899 Other long term (current) drug therapy
CPT/HCPCS: 36415; 71046; 80048; 80307; 82947; 83735; 84443; 84484; 85025; 85027; 86704; 86706; 86803; 87340; 87389; 93005; 93306; 93356; 96372; 96374; 99222; 99285; J0571; J1650; J2405; Q9957

== ENCOUNTER → 2023-09-24 22:37 | Outpatient (BNV) | payer OTHER, SELFPAY | PROVIDERS: Admitting Provider Student in an Organized Health Care Education/Training Program; Emergency Provider Student in an Organized Health Care Education/Training Program; Visit Provider Internal Medicine Cardiovascular Disease | DX: I49.9 Cardiac arrhythmia, unspecified (principal) | CPT/HCPCS: 93010 ==

== ENCOUNTER 2023-09-25 00:43 | Outpatient (BNV) | payer OTHER, SELFPAY | END 2023-09-29 08:00 | PROVIDERS: Admitting Provider Student in an Organized Health Care Education/Training Program; Emergency Provider Student in an Organized Health Care Education/Training Program; Visit Provider Internal Medicine | DX: R00.1 Bradycardia, unspecified (principal) | CPT/HCPCS: 93010 ==

== ENCOUNTER 2023-09-25 00:43 | Outpatient (BNV) | payer OTHER, SELFPAY | END 2023-09-30 08:00 | PROVIDERS: Admitting Provider Student in an Organized Health Care Education/Training Program; Emergency Provider Student in an Organized Health Care Education/Training Program; Visit Provider Internal Medicine | DX: R00.1 Bradycardia, unspecified (principal) | CPT/HCPCS: 93010 ==

== ENCOUNTER → 2023-09-25 00:43 | Outpatient (BNV) | payer OTHER, SELFPAY | PROVIDERS: Admitting Provider Student in an Organized Health Care Education/Training Program; Emergency Provider Student in an Organized Health Care Education/Training Program; Visit Provider Student in an Organized Health Care Education/Training Program | DX: Z45.02 Encounter for adjustment and management of automatic implantable cardiac defibrillator (principal) | CPT/HCPCS: 99222; 99231; 99232; 99239; 99499 ==

== ENCOUNTER → 2023-09-25 00:43 | Outpatient (BNV) | payer OTHER, SELFPAY | PROVIDERS: Admitting Provider Student in an Organized Health Care Education/Training Program; Emergency Provider Student in an Organized Health Care Education/Training Program; Visit Provider Internal Medicine Cardiovascular Disease | DX: I50.20 Unspecified systolic (congestive) heart failure (principal); R00.1 Bradycardia, unspecified | CPT/HCPCS: 93306; 99222 ==

== ENCOUNTER → 2023-09-25 00:43 | Outpatient (BNV) | payer SELFPAY | PROVIDERS: Admitting Provider Student in an Organized Health Care Education/Training Program; Emergency Provider Student in an Organized Health Care Education/Training Program; Visit Provider Nurse Practitioner Psychiatric/Mental Health | DX: F11.90 Opioid use, unspecified, uncomplicated (principal) | CPT/HCPCS: 99221; 99232 ==

== ENCOUNTER 2023-10-15 08:54 | Emergency (ER) | payer OTHER, SELFPAY ==
--- NOTE | ~2023-10-15 | XR_ITS ---
EXAMINATION: XR CHEST CLINICAL INFORMATION: Chest pain COMPARISON: 10/19/2022 and 09/25/2023 TECHNIQUE: Frontal view of the chest was obtained. FINDINGS: Lungs are well expanded. There appears is an old linear opacity of scarring in the lingula. No acute abnormality. No pulmonary consolidation, pneumothorax or pleural effusion. Cardiomediastinal silhouette has stable size and contour with single lead AICD in place. The tip of the lead overlies the right ventricle. The visualized bones are intact. XR/XR chest 1V IMPRESSION: No acute pulmonary disease compared to 09/25/2023.
--- NOTE | 2023-10-15 08:58 | ECG_ITS ---
Test Reason : chest pain Blood Pressure : / mmHG Vent. Rate : 063 BPM Atrial Rate : 063 BPM P-R Int : 148 ms QRS Dur : 106 ms QT Int : 516 ms P-R-T Axes : 048 008 087 degrees QTc Int : 528 ms Normal sinus rhythm Minimal voltage criteria for LVH, may be normal variant ( [place] product ) T wave abnormality, consider anterolateral ischemia Prolonged QT Abnormal ECG When compared with ECG of 30-SEP-2023 08:30, No significant changes seen Referred By: Rasheed Kamara Electronically Signed By:GAIL BANERJEE MD
[2023-10-15 09:29] LABS: MANUAL DIFF FLAG NO
[2023-10-15 09:33] LABS: Basophils Absolute Auto 0.1 X10*3/uL (0.0-0.2); Basophils Percent Auto 0.8 % (0-2); Eosinophils Percent Auto 13.7 % (0-4); Hematocrit 37.4 % (42.0-52.0); Hemoglobin 11.6 g/dl (14.0-18.0); Imm Gran Abs Auto 0.01 X10*3/uL (0.00-0.03); Imm Gran Pct Auto 0.1 % (0.0-0.4); Lymphocytes Absolute Auto 1.1 X10*3/uL (1.2-4.9); Lymphocytes Percent Auto 14.4 % (20-40); Mean Corpuscular Hemoglobin 29.4 pg (27.0-33.0); Mean Corpuscular Volume 94.7 fL (80.0-98.0); Mean Platelet Volume 8.8 fL (9.4-12.4); Monocytes Absolute Auto 0.4 X10*3/uL (0.1-1.2); Platelet Count 356 X10*3/uL (160-400); Red Blood Count 3.95 X10*6/uL (4.60-5.80); Red Cell Distribution Width 14.4 % (11.0-16.0); White Blood Count 7.6 X10*3/uL (4.8-10.8)
[2023-10-15 09:42] LABS: Anion Gap 12 (12-20); Blood Urea Nitrogen 10 mg/dL (9-16); Calcium 9.1 mg/dL (8.4-10.2); Carbon Dioxide 28 mmol/L (22-29); Chloride 105 mmol/L (96-108); Estimated Glomerular Filt Rate > 60; Glucose Random 92 mg/dL (60-115); Potassium 3.9 mmol/L (3.3-5.1); Sodium 141 mmol/L (135-145)
[2023-10-15 09:54] LABS: Troponin-I High Sensitivity < 2.7 ng/L (<3.5-35.0)
[2023-10-15 10:47] VITALS: BP 139/82; PULSE 65; RESP 18; TEMP 36.6; O2SAT 99; BMI 25.1
[2023-10-15 12:54] LABS: Troponin-I High Sensitivity < 2.7 ng/L (<3.5-35.0)
--- NOTE | 2023-10-15 13:48 | ED_ITS ---
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 Related Data Home Medications Medication Instructions Recorded Confirmed ibuprofen 800 mg tablet 800 mg PO DAILY PRN Pain 09/25/23 09/25/23 levothyroxine 75 mcg tablet 75 mcg PO DAILY@0600 09/25/23 09/25/23 valsartan 40 mg tablet 40 mg PO BID 09/25/23 09/25/23 Previous Rx's Medication Instructions Recorded amiodarone 200 mg tablet See Rx Instructions .Route 09/25/23 .COMPLEX #72 tabs lidocaine 4 % topical patch 1 patch topical DAILY PRN chest 09/25/23 wall pain #30 ea naloxone 4 mg/actuation nasal spray 4 mg intranasal Q2M PRN opioid 09/25/23 overdose #2 ea buprenorphine 2 mg-naloxone 0.5 mg 1 film buccal BID #14 ea 10/02/23 sublingual film Allergies Allergy/AdvReac Type Severity Reaction Status Date / Time No Known Allergies Allergy Verified 10/15/23 10:47 Review of Systems 2 Review of Systems: Pertinent positives and negatives as stated in HPI PMFSH Past Medical History Source: nursing notes reviewed Onset Date is defined in the Problem List Problems that require an onset date and time if occurred within 24 hrs of arrival to the ED Aortic Dissection and Rupture; Neurologic impairment; Cardiopulmonary Arrest; Endotracheal Intubation; Insertion or Replacement of Mechanical Circulatory Assist Device Medical History Defibrillator discharge ICD (implantable cardioverter-defibrillator) malfunction Arrhythmia Systolic heart failure Cardiac defibrillator in place Ventricular fibrillation Polysubstance use disorder Social History Social History Household Members: Other Housing: Homeless Do you presently have visiting nurse or other home services: No Unable to assess alcohol history related to: Refusing to respond Patient Tobacco Use Status: Current everyday Tobacco user Tobacco use type: Cigarette Cigarettes Per Day: 5 e-Cigarette/Vaping Use: Never Used Second Hand Smoke Exposure: No Substance Use Type: Crack/Cocaine, Heroin and Marijuana Advance Directives: No Advance Directives Information Provided: No service: No Physical Exam 2 Vital Signs: Vital Signs: Last Vital Signs Temp 98 F 10/15/23 10:47 Pulse 61 10/15/23 14:45 Resp 16 10/15/23 14:45 BP 155/73 H 10/15/23 14:45 Pulse Ox 97 10/15/23 14:45 O2 Del Method Room Air 10/15/23 14:45 BMI result Body Mass Index 25.1 VITAL SIGNS: Reviewed. GENERAL: Well developed, well nourished, in no acute distress. HEAD: Normocephalic/atraumatic EYES: PERRLA, EOMI EARS: Ext canals without abnormality NOSE: Nares patent bilateral OROPHARYNX: no oral lesions noted, posterior pharynx clear NECK: Supple, no adenopathy LUNGS: Normal breath sounds. No adventitious sounds or accessory muscle use. SpO2<99> CARDIOVASCULAR: Regular rate and rhythm without noted murmurs ABDOMEN: Soft, non-tender, non-distended with bowel sounds. MUSCULOSKELETAL: No tenderness, deformities, or effusions noted on gross inspection. EXTREMITIES: No cyanosis, clubbing or edema. SKIN: Inspection of the skin reveals no rashes NEUROLOGIC: Drowsy but easily aroused. Strength and sensation to light touch were grossly intact x 4. Medical Decision Making Medical Decision Making MDM Narrative: 48-year-old male with history and clinical presentation, DDX: Viral illness, possibility of pneumonia and less likely felt to be ACS, also suspect recent drug use despite patient denying. Pupils are noted to be pinpoint. I reviewed all investigations and hematologic indices are chronically stable without leukocytosis/normocytic anemia/no thrombocytopenia or left shift. Chemistry indices are grossly within normal limits without DWIGHT or electrolyte derangements, high sensitivity troponin is undetectable. There were no acute EKG changes. Viral testing negative for COVID-19/influenza. Chest x-ray without evidence of infiltrate or venous congestion otherwise my interpretation is in agreement with radiology's impression. I reviewed toxicology results from 09/2023 which demonstrated positivity for fentanyl as well as cocaine and suspect patient's use of cocaine is likely contributing to transient chest pain. He is otherwise cleared for discharge. A list of shelters was provided to the patient. Differential Diagnosis Differential Diagnoses: The differential diagnosis associated with the presentation includes Please see the discussion above Admission/Observation Consideration of admission/observation: Escalation of care including admission/observation considered Please see the discussion above Lab Data MDM Lab Attestation statement: I reviewed the patient's lab results. Please see the discussion above 10/15/23 09:21 10/15/23 09:21 Labs: Lab Results 10/15/23 10/15/23 10/15/23 Range/Units 09:21 12:24 13:36 WBC 7.6 (4.8-10.8) X10*3/uL RBC 3.95 L (4.60-5.80) X10*6/uL Hgb 11.6 L (14.0-18.0) g/dl Hct 37.4 L (42.0-52.0) % MCV 94.7 (80.0-98.0) fL MCH 29.4 (27.0-33.0) pg MCHC 31.0 (31.0-36.0) g/dl RDW 14.4 (11.0-16.0) % Plt Count 356 D (160-400) X10*3/uL MPV 8.8 L (9.4-12.4) fL Immature Gran % (Auto) 0.1 (0.0-0.4) % Neut % (Auto) 66.0 (45-73) % Lymph % (Auto) 14.4 L (20-40) % [place] % (Auto) 5.0 (2-11) % Eos % (Auto) 13.7 H (0-4) % Baso % (Auto) 0.8 (0-2) % Lymph # (Auto) 1.1 L (1.2-4.9) X10*3/uL [place] # (Auto) 0.4 (0.1-1.2) X10*3/uL Eos # (Auto) 1.0 H (0.0-0.4) X10*3/uL Baso # (Auto) 0.1 (0.0-0.2) X10*3/uL Abs Immat Gran (auto) 0.01 (0.00-0.03) X10*3/uL Absolute Neuts (auto) 5.0 (2.0-8.3) x10*3/uL Absolute Nucleated RBC 0.000 (0.0-0.012) X10*3/uL Nucleated RBC % (auto) 0.0 (0.0-0.2) /100WBC Sodium 141 (135-145) mmol/L Potassium 3.9 (3.3-5.1) mmol/L Chloride 105 (96-108) mmol/L Carbon Dioxide 28 (22-29) mmol/L Anion Gap 12 (12-20) BUN 10 (9-16) mg/dL Creatinine 0.69 (0.5-1.4) mg/dL Estim Creat Clear Calc TNP Estimated GFR > 60 Random Glucose 92 (60-115) mg/dL Calcium 9.1 (8.4-10.2) mg/dL Troponin I High Sens < 2.7 D < 2.7 (<3.5-35.0) ng/L COVID-19 (REJI) Negative (Negative) COVID-19 Clin Com See Note Influenza Type A (CHRISTIN) Negative (Negative) Influenza Type B (CHRISTIN) Negative (Negative) Influenza A & B Note See Note Independent Interpretation I performed an independent interpretation of an: EKG Interpretation: Normal sinus rhythm, HR-63, no STEMI, WI/QRS/QTC without acute changes when compared to prior EKG. Radiology Impression Discussion of test interpretation with radiology: I have reviewed the radiologist's reading. Radiologist Impression: Please see the discussion above External Record Review External record reviewed: Outpatient record, Prior outpatient labs and Prior outpatient radiology Social Determinants Patient?s care significantly limited by Social Determinants of Health including: Alcoholism and drug addiction in family Critical Care Time Critical Care Time Critical Care Time: Yes Total Critical Care Time: 30 Attestation: I personally attest to this time spent taking care of the patient. Discharge Plan Discharge Clinical Impression: Polysubstance use disorder, Opioid use disorder, Cocaine use disorder Patient Disposition: Home, Self-Care Instructions: Cocaine Abuse (ED), Polysubstance Abuse (ED) Additional Instructions: 1. Dejar de consumir coca?na y otras drogas il?citas. 2. Se le mcghee proporcionado kenny lista de refugios en el ?shay[place]. 3. Latanya un seguimiento con beyer m?dico de atenci?n primaria lo antes posible. Regrese a la pawan de emergencias si los s?ntomas empeoran. 1. Stop using cocaine and other illicit drugs. 2. A list has been provided to you for shelters in the area. 3. Please follow-up with your primary care doctor at your earliest convenience. Return to the ER for any worsening symptoms. Prescriptions: No Action buprenorphine-naloxone 2-0.5 mg film 1 film buccal BID Qty: 14 0RF Rx Instructions: place 1 strip/tab under (each) side of tongue levothyroxine 75 mcg tablet 75 mcg PO DAILY@0600 valsartan 40 mg tablet 40 mg PO BID ibuprofen 800 mg Tablet 800 mg PO DAILY PRN (Reason: Pain) amiodarone 200 mg Tablet See Rx Instructions .ROUTE .COMPLEX Qty: 72 0RF Rx Instructions: 400 mg twice daily for two weeks, then 200 mg once daily naloxone 4 mg/actuation spray,non-aerosol 4 mg intranasal Q2M PRN (Reason: opioid overdose) Qty: 2 0RF Rx Instructions: spray 1 dose into ONE nostril; alternate nostrils w each dose until help arrives lidocaine 4 % adhesive patch,medicated 1 patch topical DAILY PRN (Reason: chest wall pain) Qty: 30 0RF Print Language: Cymro
[2023-10-15 13:57] LABS: COVID-19 Test Negative (Negative); IDNOW Serial# 08D9AD1C
[2023-10-15 14:06] LABS: IDNOW Serial# 9DB6401D; Influenza A Negative (Negative); Influenza B2 Negative (Negative)
[2023-10-15 14:45] VITALS: BP 155/73; PULSE 61; RESP 16; O2SAT 97
[2023-10-15 15:36] VITALS: BP 151/86; PULSE 64; RESP 16; TEMP 36.2; O2SAT 97
== END 2023-10-15 16:06 | disposition home or self-care (01) ==
PROVIDERS: Emergency Medicine; Emergency Provider Student in an Organized Health Care Education/Training Program
DX: F14.90 Cocaine use, unspecified, uncomplicated (principal); F19.10 Other psychoactive substance abuse, uncomplicated; F11.20 Opioid dependence, uncomplicated; Z11.52 Encounter for screening for COVID-19; I49.01 Ventricular fibrillation; F17.210 Nicotine dependence, cigarettes, uncomplicated; Z95.810 Presence of automatic (implantable) cardiac defibrillator
CPT/HCPCS: 36415; 71045; 80048; 84484; 85025; 87502; 87635; 93005; 99283; 99284

== ENCOUNTER → 2023-10-15 08:58 | Outpatient (BNV) | payer OTHER, SELFPAY | PROVIDERS: Emergency Provider Student in an Organized Health Care Education/Training Program; Visit Provider Internal Medicine Cardiovascular Disease | DX: I45.81 Long QT syndrome (principal) | CPT/HCPCS: 93010 ==

== ENCOUNTER 2023-12-23 08:33 | Inpatient (IN) | payer OTHER, SELFPAY ==
[2023-12-23] VITALS (8 sets, daily range): BP systolic 92–122; BP diastolic 53–78; PULSE 58–70; RESP 10–20; TEMP 36.1–36.8; O2SAT 93–98; BMI 21.0
--- NOTE | 2023-12-23 | ECG_ITS ---
Test Reason : CHEST PAIN Blood Pressure : / mmHG Vent. Rate : 059 BPM Atrial Rate : 059 BPM P-R Int : 148 ms QRS Dur : 108 ms QT Int : 460 ms P-R-T Axes : 050 005 118 degrees QTc Int : 455 ms Sinus bradycardia Possible Left atrial enlargement Minimal voltage criteria for LVH, may be normal variant ( Shayan product ) Possible Inferior infarct , age undetermined ST & T wave abnormality, consider lateral ischemia Abnormal ECG When compared with ECG of 15-OCT-2023 09:14, T wave inversion no longer evident in Anterior leads T wave inversion more evident in Lateral leads QT has shortened Referred By: Generic ED Physician Electronically Signed By:TAB LEMON
[2023-12-23 09:09] LABS: MANUAL DIFF FLAG NO
[2023-12-23 09:10] LABS: Basophils Absolute Auto 0.1 X10*3/uL (0.0-0.2); Basophils Percent Auto 0.7 % (0-2); Eosinophils Absolute Auto 1.1 X10*3/uL (0.0-0.4); Eosinophils Percent Auto 10.8 % (0-4); Hematocrit 35.4 % (42.0-52.0); Hemoglobin 11.3 g/dl (14.0-18.0); Imm Gran Abs Auto 0.02 X10*3/uL (0.00-0.03); Imm Gran Pct Auto 0.2 % (0.0-0.4); Lymphocytes Absolute Auto 1.4 X10*3/uL (1.2-4.9); Lymphocytes Percent Auto 13.4 % (20-40); Mean Corpuscular HGB Conc 31.9 g/dl (31.0-36.0); Mean Corpuscular Hemoglobin 30.1 pg (27.0-33.0); Mean Corpuscular Volume 94.4 fL (80.0-98.0); Mean Platelet Volume 9.7 fL (9.4-12.4); Monocytes Absolute Auto 0.7 X10*3/uL (0.1-1.2); Monocytes Percent Auto 7.3 % (2-11); Neutrophils Absolute Auto 6.9 x10*3/uL (2.0-8.3); Neutrophils Percent Auto 67.6 % (45-73); Platelet Count 306 X10*3/uL (160-400); Red Blood Count 3.75 X10*6/uL (4.60-5.80); Red Cell Distribution Width 15.4 % (11.0-16.0); White Blood Count 10.2 X10*3/uL (4.8-10.8)
--- NOTE | 2023-12-23 09:11 | PC.NURSE ---
pt is alert and oriented, skin appropriate for ethnicity, respirations even and unlabored, ls clear, pt reports that his defibrillator was firing since last night on and off and having left sided chest pain, pt reports using drugs all night long-heroin/crack/cocaine/marijuana, when pt arrived to the bed 18 on the monitor heart rate was reading in the 140's then while speaking with the pt heart rate dropped to the 60's in normal sinus, bp also dropped
--- NOTE | 2023-12-23 09:19 | ED_ITS ---
HPI - Arrhythmia/Palpitations General Chief Complaint: Arrhythmia/Palpitations Stated Complaint: Chest Pain X 3 Days Has Pacemaker Time Seen by Provider: 12/23/23 08:52 Source: patient Mode of arrival: ambulatory Limitations: no limitations History of Present Illness HPI narrative: Patient is homeless continues to use drugs, in August he had a cardiac arrest while in longterm most likely secondary to drugs, he had clean coronaries and needed a AICD placed ([employer]). It is unlikley that he is taking his amiodarone and his AICD went off 6 times since yesterday. Onset (ago): day(s) Duration: intermittent Severity: severe Related Data Previous Rx's Medication Instructions Recorded buprenorphine 2 mg-naloxone 0.5 mg 1 film buccal BID #14 ea 10/02/23 sublingual film amiodarone 200 mg tablet 200 mg PO DAILY #90 tabs 12/25/23 apixaban 5 mg tablet (Eliquis) 5 mg PO BID 30 days #60 tabs 12/25/23 Allergies Allergy/AdvReac Type Severity Reaction Status Date / Time No Known Allergies Allergy Verified 12/23/23 08:43 Review of Systems 2 Review of Systems: Yes all other systems are reviewed and are negative Neurologic: Denies Sensory deficit (Neuro) [facility] Past Medical History Medical History (Updated 01/02/24 @ 00:02 by Arsalan Paulino) Cardiomyopathy Atrial flutter Defibrillator discharge ICD (implantable cardioverter-defibrillator) malfunction Arrhythmia Systolic heart failure Cardiac defibrillator in place Ventricular fibrillation Polysubstance use disorder Social History Social History Household Members: None Housing: Homeless Do you presently have visiting nurse or other home services: No Unable to assess alcohol history related to: Refusing to respond Alcohol intake: never Patient Tobacco Use Status: Current everyday Tobacco user Tobacco use type: Cigarette Cigarettes Per Day: 5 e-Cigarette/Vaping Use: Currently Using Second Hand Smoke Exposure: No Substance Use Type: Crack/Cocaine, Heroin and Marijuana service: No Physical Exam 2 Vital Signs: Vital Signs: Last Vital Signs Temp 98.7 F 12/25/23 11:34 Pulse 62 12/25/23 11:34 Resp 20 12/25/23 11:34 BP 138/67 12/25/23 11:34 Pulse Ox 96 12/25/23 11:34 O2 Del Method Room Air 12/25/23 11:34 BMI result Body Mass Index 21.0 Const: Other: Cachectic unkept male. On the monitor he is having runs of atrial flutter. Orientation/consciousness: oriented to person and patient oriented x3 L imitations: no limitations HEENT: Head: Yes normal to inspection Ears: external ears normal General nose exam: Normal external nose present Mouth: Normal oral and palatal mucosa present and oropharynx normal Throat: Yes posterior oropharynx normal Eyes: General: appearance normal, both eyes and all related structures Neck: Other: supple Neck: Yes normal visual inspection Chest: Chest palpation & inspection: normal inspection of the chest Resp: Auscultation: clear to auscultation bilaterally Cardio: Jugular venous distension: no JVD Rate: regular rate Rhythm: r egular rhythm Heart sounds: S1 normal heart sound present and S2 normal heart sound present GI: Inspection: Yes normal to inspection Palpation (GI): Soft to palpation, nontender and No hepatosplenomegaly present Auscultation: normal bowel sounds : General: Yes no CVA tenderness Back/Spine/Pelvis: Back: no CVA tenderness Skin: General skin exam: no rashes or lesions noted Neuro: General: oriented to person and patient oriented x3 Cranial nerves: Yes CN's II-XII intact bilaterally Motor exam (neuro): 5/5 motor strength present throughout Sensory Exam: No Sensory deficit (Neuro) Extrem: General: Yes normal to inspection Psych: Appearance: grossly normal Course Reevaluation(s) Reevaluation #1: patient with runs of atrial flutter with resolved on its own, I gave him 200mg of amiadarone which has kept him in sinus at 56. Discussed with Dr. Kenney who states the patient should be admitted Time: 14:37 Reevaluation #2: I spent 40 minutes of critical care, with interventions, assessments, speaking to patient, consultants, and family. Time: 14:38 Medications Administered Discontinued Medications Generic Name Dose Route Start Last Admin Trade Name Freq PRN Reason Stop Dose Admin Amiodarone HCl 200 mg 12/23/23 09:46 12/23/23 10:10 Amiodarone Hcl 200 Mg Tablet PO 12/23/23 09:47 200 mg ONCE ONE Administration Amiodarone HCl 400 mg 12/23/23 16:35 12/25/23 09:52 Amiodarone Hcl 200 Mg Tablet PO 400 mg BID EDMUND Administration Apixaban 5 mg 12/24/23 21:00 12/25/23 09:52 Apixaban 5 Mg Tablet PO 5 mg BID EDMUND Administration Buprenorphine/Naloxone 1 film 12/25/23 09:00 12/25/23 09:52 Buprenorphine/Naloxone 8/2 Mg Film SUBLINGUAL 1 film DAILY EDMUND Administration Buprenorphine/Naloxone 1 film 12/24/23 15:14 12/24/23 16:01 Buprenorphine/Naloxone 8/2 Mg Film SUBLINGUAL 12/24/23 15:15 1 film NOW STA Administration Sodium Chloride 3 ml 12/24/23 00:00 12/25/23 09:53 0.9 % Sodium Chloride Flush 3 Ml Syringe IVFLUSH 3 ml QSHIFT EDMUND Administration Medical Decision Making Differential Diagnosis Differential Diagnoses: The differential diagnosis associated with the presentation includes (Ventricular tachycardia, ventricular fibrillation, atrial flutter atrial fibrillation) Admission/Observation Consideration of admission/observation: Escalation of care including admission/observation considered (upon arrival patient was considered for admission.) Consult Healthcare Provider Management of the patient was discussed with: Hospitalist and Metal Furniture Assembly Supervisor (Dr. Kenney cardiology) Lab Data 12/24/23 04:17 12/24/23 04:17 Labs: Lab Results 12/23/23 12/23/23 12/23/23 Range/Units 09:04 11:26 12:05 WBC 10.2 (4.8-10.8) X10*3/uL RBC 3.75 L (4.60-5.80) X10*6/uL Hgb 11.3 L (14.0-18.0) g/dl Hct 35.4 L (42.0-52.0) % MCV 94.4 (80.0-98.0) fL MCH 30.1 (27.0-33.0) pg MCHC 31.9 (31.0-36.0) g/dl RDW 15.4 (11.0-16.0) % Plt Count 306 (160-400) X10*3/uL MPV 9.7 (9.4-12.4) fL Immature Gran % (Auto) 0.2 (0.0-0.4) % Neut % (Auto) 67.6 (45-73) % Lymph % (Auto) 13.4 L (20-40) % [place] % (Auto) 7.3 (2-11) % Eos % (Auto) 10.8 H (0-4) % Baso % (Auto) 0.7 (0-2) % Lymph # (Auto) 1.4 (1.2-4.9) X10*3/uL [place] # (Auto) 0.7 (0.1-1.2) X10*3/uL Eos # (Auto) 1.1 H (0.0-0.4) X10*3/uL Baso # (Auto) 0.1 (0.0-0.2) X10*3/uL Abs Immat Gran (auto) 0.02 (0.00-0.03) X10*3/uL Absolute Neuts (auto) 6.9 (2.0-8.3) x10*3/uL Absolute Nucleated RBC 0.000 (0.0-0.012) X10*3/uL Nucleated RBC % (auto) 0.0 (0.0-0.2) /100WBC Sodium 136 (135-145) mmol/L Potassium 4.8 D (3.3-5.1) mmol/L Chloride 106 (96-108) mmol/L Carbon Dioxide 24 (22-29) mmol/L Anion Gap 11 L (12-20) BUN 16 (9-16) mg/dL Creatinine 0.83 (0.5-1.4) mg/dL Estim Creat Clear Calc 88.8 Estimated GFR > 60 Random Glucose 104 (60-115) mg/dL Calcium 8.7 (8.4-10.2) mg/dL Total Bilirubin 0.3 (0.0-1.0) mg/dL AST 28 (5-37) U/L ALT 22 (0-40) U/L Alkaline Phosphatase 107 (39-117) U/L Troponin I High Sens 16.8 D 17.8 (<3.5-35.0) ng/L Total Protein 6.9 (6.5-8.0) g/dL Albumin 3.3 L (3.5-5.0) g/dL Urine Opiates Screen POSITIVE H (Not Detect) Urine Fentanyl Screen POSITIVE H (Not Detect) Ur Barbiturates Screen Not Detected (Not Detect) Ur Phencyclidine Scrn Not Detected (Not Detect) Ur Amphetamines Screen Not Detected (Not Detect) U Benzodiazepines Scrn Not Detected (Not Detect) Urine Cocaine Screen POSITIVE H (Not Detect) U Marijuana (THC) Screen POSITIVE H (Not Detect) Independent Interpretation I performed an independent interpretation of an: EKG (sinus 60, lateral flipped ts) Independent Historian Clinical information obtained from an independent historian. History obtained from or confirmed by: EMS External Record Review External record reviewed: Other ([facility] records reviewed, needed the type of AICD) Chronic Conditions Patient?s care impacted by: Other (active drug user) Discharge Plan Discharge Clinical Impression: Atrial flutter, Atrial fibrillation, Polysubstance use disorder Patient Disposition: Admitted As Inpatient Discharge Date/Time: 12/24/23 09:44
[2023-12-23 09:45] LABS: Troponin-I High Sensitivity 16.8 ng/L (<3.5-35.0)
[2023-12-23 09:52] LABS: Alanine Aminotransferase 22 U/L (0-40); Albumin Level 3.3 g/dL (3.5-5.0); Alkaline Phosphatase 107 U/L (39-117); Anion Gap 11 (12-20); Aspartate Amino Transferase 28 U/L (5-37); Bilirubin Total 0.3 mg/dL (0.0-1.0); Blood Urea Nitrogen 16 mg/dL (9-16); Calcium 8.7 mg/dL (8.4-10.2); Carbon Dioxide 24 mmol/L (22-29); Chloride 106 mmol/L (96-108); Creatinine Clr Calc Pharmacy 88.8; Estimated Glomerular Filt Rate > 60; Glucose Random 104 mg/dL (60-115); Potassium 4.8 mmol/L (3.3-5.1); Sodium 136 mmol/L (135-145); Total Protein 6.9 g/dL (6.5-8.0)
[2023-12-23] MEDS: Amiodarone HCL 200 MG TABLET PO (10:10)
[2023-12-23 11:40] LABS: Amphetamine Screen Urine Not Detected (Not Detect); Barbiturates, Urine Not Detected (Not Detect); Benzodiazepines Screen Urine Not Detected (Not Detect); Cannabinoid Screen Urine POSITIVE (Not Detect); Cocaine Screen Urine POSITIVE (Not Detect); Fentanyl, urine POSITIVE (Not Detect); Opiate Screen Urine POSITIVE (Not Detect); Phencyclidine Screen Urine Not Detected (Not Detect)
[2023-12-23 12:35] LABS: Troponin-I High Sensitivity 17.8 ng/L (<3.5-35.0)
--- NOTE | 2023-12-23 13:51 | PC.NURSE ---
assumed care of pt at 1100. pt a&o, calm, and cooperative. pt denies pain nir, urine sample obtained and sent to lab. pt resting quietly on stretcher in no apparent distress. rr even/unlabored. call fernandez within reach. plan of care ongoing.
--- NOTE | 2023-12-23 16:19 | PHA.MEDREC ---
Addendum entered by Jayshree Bourne edelmira 12/23/23 16:46: Patient has not filled the following medicaitons since 09/01/24: - Carvedilol 6.25 mg BID - Carvedilol 12.5 mg BID - Amiodarone 400 mg Daily - Levothyroxine 75 mcg daily - furosemide 20 mg daily - valsartan 40 mg BID Spoke with provider Dr. Mclaughlin about the situation. ALl medications were re-moved from home list. Original Note: Pharmacy Consult ? Medication Reconciliation Pharmacy has completed the medication reconciliation. Patient was unable to tell us what he was taking at home. He said to call the pharmacy. I called [facility] in [place] ([phone]) They confirmed he had recently picked up his Suboxone but patient does report that he has not had it since . All other medications were filled for 30 days and picked up in August.
--- NOTE | 2023-12-23 16:40 | P.HPHOSP_ITS ---
History of Present Illness Date of Service: 12/23/23 Chief Complaint: AICD discharge 48-year-old male with a history of cardiac arrest status post AICD who continues to abuse heroin cocaine fentanyl and marijuana presents to ER today after multiple discharges from his AICD. His compliance remains an issue. In the ER, EKG demonstrated sinus bradycardia. Patient has had previous admissions for same and interrogation of AICD demonstrated discharge was AFib flutter with rapid ventricular response. At this point in time he will be admitted and repeated amiodarone load will begin Review of Systems 2 Review of Systems: Admits chest pain with pressure secondary to AICD discharge Denies shortness of breath Denies nausea vomiting diarrhea Denies fever chills [facility] Medical History (Updated 12/23/23 @ 16:46 by Joe Mclaughlin DO) Defibrillator discharge ICD (implantable cardioverter-defibrillator) malfunction Arrhythmia Systolic heart failure Cardiac defibrillator in place Ventricular fibrillation Polysubstance use disorder Social History Household Members: Other Housing: Homeless Do you presently have visiting nurse or other home services: No Unable to assess alcohol history related to: Refusing to respond Alcohol intake: never Patient Tobacco Use Status: Current everyday Tobacco user Tobacco use type: Cigarette Cigarettes Per Day: 5 Smoked in Last 30 Days: No e-Cigarette/Vaping Use: Never Used Second Hand Smoke Exposure: No Use of substances other than those prescribed or required for medical reasons: Yes Substance Use Type: Crack/Cocaine, Heroin and Marijuana Advance Directives: No Advance Directives Information Provided: No service: No Meds Allergies Allergy/AdvReac Type Severity Reaction Status Date / Time No Known Allergies Allergy Verified 12/23/23 08:43 Active Medications: Current Medications Acetaminophen (Acetaminophen 325 Mg Tablet) 650 mg PO Q6H PRN PRN Reason: Pain, Mild (Pain Scale 1-3) Amiodarone HCl (Amiodarone Hcl 200 Mg Tablet) 400 mg PO BID ED[facility]UND Ondansetron HCl (Ondansetron Hcl 4 Mg/2 Ml Vial) 4 mg IVPUSH Q8H PRN PRN Reason: Nausea and Vomiting Sodium Chloride (0.9 % Sodium Chloride Flush 3 Ml Syringe) 3 ml IVFLUSH QSHIFT ED[facility] Physical Exam 2 Vital Signs and Narrative: Vital Signs: Last Vital Signs Temp 97.0 F 12/23/23 12:21 Pulse 62 12/23/23 12:21 Resp 11 L 12/23/23 12:21 BP 100/60 12/23/23 12:21 Pulse Ox 96 12/23/23 12:21 O2 Del Method Room Air 12/23/23 12:21 BMI result Body Mass Index 21.0 Const: Other: Awake alert no acute distress Resp: Other: Clear to auscultation bilaterally no rales rhonchi or wheezes Cardio: Other: No S4; positive S1-S2; no S3 murmurs rubs or gallops GI: Other: Soft nontender nondistended normoactive bowel sounds Extrem: Other: No edema bilaterally Results Labs 12/23/23 09:04 12/23/23 09:04 Labs: Laboratory Results - last 24 hr 12/23/23 12/23/23 12/23/23 09:04 11:26 12:05 MCV 94.4 MCH 30.1 MCHC 31.9 RDW 15.4 Plt Count 306 MPV 9.7 Immature Gran % (Auto) 0.2 Neut % (Auto) 67.6 Lymph % (Auto) 13.4 L [place] % (Auto) 7.3 Eos % (Auto) 10.8 H Baso % (Auto) 0.7 Lymph # (Auto) 1.4 [place] # (Auto) 0.7 Eos # (Auto) 1.1 H Baso # (Auto) 0.1 Abs Immat Gran (auto) 0.02 Absolute Neuts (auto) 6.9 Absolute Nucleated RBC 0.000 Nucleated RBC % (auto) 0.0 Anion Gap 11 L Estim Creat Clear Calc 88.8 Estimated GFR > 60 Random Glucose 104 Calcium 8.7 Total Bilirubin 0.3 AST 28 ALT 22 Alkaline Phosphatase 107 Troponin I High Sens 16.8 D 17.8 Total Protein 6.9 Albumin 3.3 L Urine Opiates Screen POSITIVE H Urine Fentanyl Screen POSITIVE H Ur Barbiturates Screen Not Detected Ur Phencyclidine Scrn Not Detected Ur Amphetamines Screen Not Detected U Benzodiazepines Scrn Not Detected Urine Cocaine Screen POSITIVE H U Marijuana (THC) Screen POSITIVE H Assessment and Plan (1) Defibrillator discharge: Status: Acute (2) Polysubstance use disorder: Status: Acute Plan 48-year-old male with known history of polysubstance abuse on Suboxone and noncompliance with medical therapies presents after AICD discharge. This is similar to past episodes and most likely secondary to noncompliance. Last episode underlying rhythm after interrogation was atrial fibrillation with rapid ventricular response 1. AICD discharge secondary to noncompliance with therapies -restart amiodarone load at 400 mg b.i.d. -cardiology consult in a.m. -encourage compliance 2. Polysubstance abuse... On Suboxone States took Suboxone dose this a.m. -consult addiction Medicine -further dosing at their recommendation Full code Laurencex Patient requires at least 2 midnights going forward for amiodarone oral load while monitoring AICD for discharge. He will also requires specialist consultation. This can not be achieved a lesser acute setting Quality Stroke Does the patient have a stroke diagnosis?: No VTE Prior VTE?: No VTE Risk Level:: Medical - moderate - high VTE Device Contraindication: Treatment Not Indicated VTE Drug Contraindication: N/A - Med Ordered
[2023-12-23] MEDS: Amiodarone HCL 200 MG TABLET 400 MG PO ×2 (17:11→20:56)
--- NOTE | 2023-12-23 19:40 | PC.NURSE ---
assumed care of pt at 1900
--- NOTE | 2023-12-23 20:58 | PC.NURSE ---
verified with MD WARD ok to give second dose of amiodarone 400mg as scheduled now (21:00) even though patient received first dose at 5pm. per MD Ward better to give now than wait until 9a as then pt would be 16 hours without it.
--- NOTE | 2023-12-23 21:20 | PC.NURSE ---
PT ASLEEP COMFORTABLY ON STRETCHER IN NO APPARENT DISTRESS, MEDICATED PER MAR WITH 400MG AMIODARONE. TOOK PILLS WHOLE WITH WATER. PT CONTINUES TO SLEEP, OFFERS NO CURRENT COMPLAINTS. CALL [facility] WITHIN REACH, PLAN OF CARE ONGOING
[2023-12-24] VITALS (7 sets, daily range): BP systolic 112–135; BP diastolic 56–87; PULSE 54–79; RESP 14–20; TEMP 36.1–37.2; O2SAT 94–100
--- NOTE | 2023-12-24 00:59 | PC.NURSE ---
Pt is a sleep at this time, no sign of distress.
[2023-12-24] MEDS: 0.9 % Sodium Chloride Flush 3 ML SYRINGE IVFLUSH ×3 (05:42→16:01)
[2023-12-24 07:01] LABS: MANUAL DIFF FLAG NO
[2023-12-24 07:06] LABS: Basophils Absolute Auto 0.1 X10*3/uL (0.0-0.2); Basophils Percent Auto 0.7 % (0-2); Eosinophils Absolute Auto 1.2 X10*3/uL (0.0-0.4); Eosinophils Percent Auto 13.6 % (0-4); Hematocrit 36.1 % (42.0-52.0); Hemoglobin 11.3 g/dl (14.0-18.0); Imm Gran Abs Auto 0.02 X10*3/uL (0.00-0.03); Imm Gran Pct Auto 0.2 % (0.0-0.4); Lymphocytes Absolute Auto 1.9 X10*3/uL (1.2-4.9); Lymphocytes Percent Auto 21.9 % (20-40); Mean Corpuscular HGB Conc 31.3 g/dl (31.0-36.0); Mean Corpuscular Hemoglobin 29.8 pg (27.0-33.0); Mean Corpuscular Volume 95.3 fL (80.0-98.0); Mean Platelet Volume 10.1 fL (9.4-12.4); Monocytes Absolute Auto 0.7 X10*3/uL (0.1-1.2); Monocytes Percent Auto 7.5 % (2-11); Neutrophils Absolute Auto 4.9 x10*3/uL (2.0-8.3); Neutrophils Percent Auto 56.1 % (45-73); Platelet Count 308 X10*3/uL (160-400); Red Blood Count 3.79 X10*6/uL (4.60-5.80); Red Cell Distribution Width 15.9 % (11.0-16.0); White Blood Count 8.8 X10*3/uL (4.8-10.8)
[2023-12-24 07:30] LABS: Alanine Aminotransferase 20 U/L (0-40); Albumin Level 2.9 g/dL (3.5-5.0); Alkaline Phosphatase 101 U/L (39-117); Anion Gap 12 (12-20); Aspartate Amino Transferase 13 U/L (5-37); Bilirubin Total 0.2 mg/dL (0.0-1.0); Blood Urea Nitrogen 15 mg/dL (9-16); Carbon Dioxide 27 mmol/L (22-29); Chloride 109 mmol/L (96-108); Creatinine Clr Calc Pharmacy 92.1; Estimated Glomerular Filt Rate > 60; Glucose Random 80 mg/dL (60-115); Potassium 3.9 mmol/L (3.3-5.1); Sodium 144 mmol/L (135-145); Total Protein 5.7 g/dL (6.5-8.0)
[2023-12-24] MEDS: Amiodarone HCL 200 MG TABLET 400 MG PO ×2 (09:01→22:51)
--- NOTE | 2023-12-24 09:45 | PM.CNCAR ---
History of Present Illness History of Present Illness Date of Service: 12/24/23 Chief complaint: AICD Discharge Narrative: This is a cardiology consultation regarding ICD shocks. [facility] documentation reviewed. History of substance abuse including cocaine and others. He was admitted to [facility] last July. At that time, it seems that he was having cardiac arrest, pulseless VT and required ICD shocks. Cardiac catheterization did not show any evidence of CAD. LVEF in the 10-15% range. Then he underwent ICD placement. Then it appears that he had another shock in August and at that time, carvedilol dose was increased. This time, he is in the hospital because he had multiple shocks that brought him to the ER. Upon device interrogation, it seems that they are probably atrial fibrillation episodes and not V-tach or VFib. There is a question of med compliance as he states he is homeless and does not have access to medications. Hence unlikely that he is taking amiodarone or the carvedilol. Unfortunately still doing drugs and they are all positive on the tox screen. This includes opiates, fentanyl, cocaine, marijuana. In terms of symptoms, he states he otherwise feels okay. Nothing acute complaints. Review of Systems Review of Systems: Yes all other systems are reviewed and are negative Constitutional: Constitutional: Reports as per HPI and Reports no additional constitutional complaints Eyes: Eyes: Reports as per HPI and Denies no additional eye complaints ENT: Denies system reviewed and no additional complaints, except as documented and Reports as per HPI Cardiovascular: Cardiovascular: Reports as per HPI, Reports no additional cardiovascular complaints, Denies acrocyanosis, Denies cool extremities, Denies chest pain, Denies leg edema, Denies lightheadedness, Denies palpitations and Denies dyspnea Respiratory: Respiratory: Reports as per HPI, Denies no additional respiratory complaints and Denies dyspnea Gastrointestinal: Gastrointestinal: Reports as per HPI and Denies no additional gastrointestinal complaints Genitourinary: Genitourinary: Reports no additional male genitourinary complaints and Reports as per HPI Musculoskeletal: Musculoskeletal: Reports no additional musculoskeletal complaints and Reports as per HPI Integumentary/Breasts: Skin/Breast: Reports system reviewed and no additional complaints, except as docu Neurologic: Reports system reviewed and no additional complaints, except as documented and Reports as per HPI Psychiatric: Psychiatric: Reports no additional psychiatric complaints and Reports as per HPI Endocrine: Endocrine: Reports no additional endocrine complaints, Reports as per HPI and Denies palpitations Hematologic/Lymphatic: Hematologic/Lymphatic: Reports no additional hematologic/lymphatic complaints and Reports as per HPI Allergic/Immunologic: Allergic/Immunologic: Reports no additional allergic/immunologic complaints and Reports as per HPI [facility] Past Medical History Medical History (Updated 12/24/23 @ 09:50 by Karthikeyan Kenney MD) Defibrillator discharge ICD (implantable cardioverter-defibrillator) malfunction Arrhythmia Systolic heart failure Cardiac defibrillator in place Ventricular fibrillation Polysubstance use disorder Family History Pertinent family history: No pertinent family history Social History Social History Household Members: None Housing: Homeless Do you presently have visiting nurse or other home services: No Unable to assess alcohol history related to: Refusing to respond Alcohol intake: never Patient Tobacco Use Status: Current everyday Tobacco user Tobacco use type: Cigarette Cigarettes Per Day: 5 e-Cigarette/Vaping Use: Currently Using Second Hand Smoke Exposure: No Substance Use Type: Crack/Cocaine, Heroin and Marijuana service: No Meds Allergies Allergy/AdvReac Type Severity Reaction Status Date / Time No Known Allergies Allergy Verified 12/23/23 08:43 Active Medications: Current Medications Acetaminophen (Acetaminophen 325 Mg Tablet) 650 mg PO Q6H PRN PRN Reason: Pain, Mild (Pain Scale 1-3) Amiodarone HCl (Amiodarone Hcl 200 Mg Tablet) 400 mg PO BID [facility] Last Admin: 12/24/23 09:01 Dose: 400 mg Ondansetron HCl (Ondansetron Hcl 4 Mg/2 Ml Vial) 4 mg IVPUSH Q8H PRN PRN Reason: Nausea and Vomiting Sodium Chloride (0.9 % Sodium Chloride Flush 3 Ml Syringe) 3 ml IVFLUSH QSHIFT [facility] Last Admin: 12/24/23 09:01 Dose: 3 ml Physical Exam Vital Signs: Vital Signs: Last Vital Signs Temp 97.5 F 12/24/23 07:57 Pulse 66 12/24/23 07:57 Resp 20 12/24/23 07:57 BP 135/87 12/24/23 07:57 Pulse Ox 97 12/24/23 07:57 O2 Del Method Room Air 12/24/23 07:57 BMI result Body Mass Index 21.0 Const: General: comfortable and no acute distress Orientation/consciousness: patient oriented x3 HEENT: Other: Unremarkable Head: Yes normal to inspection Neck: Neck: Yes normal visual inspection Chest: Chest palpation & inspection: normal inspection of the chest Resp: Auscultation: clear to auscultation bilaterally Cardio: Palpation: normal PMI Heart sounds: S1 normal heart sound present, S2 normal heart sound present, no gallops, no murmurs and no rubs GI: Palpation (GI): Soft to palpation Back/Spine/Pelvis: Other: unremarkable Skin: General skin exam: no rashes or lesions noted Neuro: General: patient oriented x3 Extrem: General: Yes normal to inspection Psych: Mental Status: mental status grossly normal Objective Labs and Meds 12/24/23 04:17 12/24/23 04:17 Lab results: Laboratory Results - last 24 hr 12/23/23 12/23/23 12/23/23 09:04 11:26 12:05 WBC RBC Hgb Hct MCV MCH MCHC RDW Plt Count MPV Immature Gran % (Auto) Neut % (Auto) Lymph % (Auto) [place] % (Auto) Eos % (Auto) Baso % (Auto) Lymph # (Auto) [place] # (Auto) Eos # (Auto) Baso # (Auto) Abs Immat Gran (auto) Absolute Neuts (auto) Absolute Nucleated RBC Nucleated RBC % (auto) Sodium 136 Potassium 4.8 D Chloride 106 Carbon Dioxide 24 Anion Gap 11 L BUN 16 Creatinine 0.83 Estim Creat Clear Calc 88.8 Estimated GFR > 60 Random Glucose 104 Calcium 8.7 Total Bilirubin 0.3 AST 28 ALT 22 Alkaline Phosphatase 107 Troponin I High Sens 16.8 D 17.8 Total Protein 6.9 Albumin 3.3 L Urine Opiates Screen POSITIVE H Urine Fentanyl Screen POSITIVE H Ur Barbiturates Screen Not Detected Ur Phencyclidine Scrn Not Detected Ur Amphetamines Screen Not Detected U Benzodiazepines Scrn Not Detected Urine Cocaine Screen POSITIVE H U Marijuana (THC) Screen POSITIVE H 12/24/23 04:17 WBC 8.8 RBC 3.79 L Hgb 11.3 L Hct 36.1 L MCV 95.3 MCH 29.8 MCHC 31.3 RDW 15.9 Plt Count 308 MPV 10.1 Immature Gran % (Auto) 0.2 Neut % (Auto) 56.1 Lymph % (Auto) 21.9 [place] % (Auto) 7.5 Eos % (Auto) 13.6 H Baso % (Auto) 0.7 Lymph # (Auto) 1.9 [place] # (Auto) 0.7 Eos # (Auto) 1.2 H Baso # (Auto) 0.1 Abs Immat Gran (auto) 0.02 Absolute Neuts (auto) 4.9 Absolute Nucleated RBC 0.000 Nucleated RBC % (auto) 0.0 Sodium 144 Potassium 3.9 Chloride 109 H Carbon Dioxide 27 Anion Gap 12 BUN 15 Creatinine 0.80 Estim Creat Clear Calc 92.1 Estimated GFR > 60 Random Glucose 80 Calcium 9.0 Total Bilirubin 0.2 AST 13 ALT 20 Alkaline Phosphatase 101 Troponin I High Sens Total Protein 5.7 L Albumin 2.9 L Urine Opiates Screen Urine Fentanyl Screen Ur Barbiturates Screen Ur Phencyclidine Scrn Ur Amphetamines Screen U Benzodiazepines Scrn Urine Cocaine Screen U Marijuana (THC) Screen ECG Interpretation: EKG with sinus rhythm at 59/Min; possible left atrial enlargement; minimal criteria for LVH; lateral/anterolateral T inversions. Can not exclude old inferior infarct. Normal PA/corrected QT. Assessment and Plan (1) Atrial fibrillation: Status: Acute (2) Defibrillator discharge: Status: Acute (3) Cardiomyopathy: Qualifiers: Cardiomyopathy type: other Qualified Code(s): I42.8 - Other cardiomyopathies Status: Acute Plan ICD was interrogated. There are 3 episodes of ATP therapy and 3 shocks. On review of the EGMs, suggestive of rather atrial fibrillation with rapid rates. Less likely ventricular tachycardia as it is quite regular. However as it is falling in the VT zone he is getting shocked after ATP. Known severe nonischemic cardiomyopathy based on prior [facility] evaluation. Currently troponin levels are unremarkable. Positive for several drugs including cocaine. Difficult situation as he is currently homeless, not taking medications and has significant cardiac issues and also doing drugs. We will get social work involved. We can refill his medications including amiodarone. Ideally Eliquis if he will take but not sure. Needs to reestablish care with his current cardiology team at [facility]. Last seen August 2023. Message sent to Olga Rajan NP [facility]. Procedures Date of Service Date of Service: 12/24/23
--- NOTE | 2023-12-24 11:40 | HO.ADDICTCON ---
History of Present Illness Date of Service: 12/24/23 Chief Complaint: AICD Discharge Reason for Consult: OUD Sources of Information: patient interviewed and chart reviewed HPI Narrative: Patient is a 48 year old Welsh speaking male medically admitted after AICD discharged Known to this service writer via previous admission for similar chief complaint. During that admission patient was initiated on suboxone. TONEY history in note from 09/27 admission. Patient seen and chart reviewed. Seen with tax compliance officer in room 457. Awake, alert, slightly irritable affect and challenging to engage. He reports that he was incarcerated up until one week ago. While incarcerated he was receiving suboxone 8mg daily. Last dose, per his report was Friday. He reports using 1-2 bags of heroin/fentanyl daily. Last use prior to presenting to ED (). He does not appear to be experiencing any withdrawal sx, sitting up in bed, preparing to eat breakfast. He reports poor sleep, but no other complaints. Focused on lack of housing and challenges associated with being unhoused, sleeping in places where drugs are readily available and using them as a mode to cope. Discussed restarting suboxone and concern for precipitated withdrawal if patient has been using and not taking suboxone. patient dismissive of this concern, then asking what precipitated withdrawal is. Discussed ongoing substance use, and impact on cardiac function. Review of Systems Constitutional: Reports as per HPI and Reports no additional constitutional complaints Diagnostics Vital Signs (24Hr): Vital Signs - 24 hr 12/23/23 12:21 12/23/23 17:15 12/23/23 18:18 Temperature 97.0 F 97.7 F 98.0 F Pulse Rate 62 58 Respiratory Rate 11 L 10 L 15 Blood Pressure 100/60 122/78 119/62 Pulse Oximetry 96 97 96 Oxygen Delivery Method Room Air Room Air 12/23/23 21:00 12/24/23 06:50 12/24/23 07:57 Temperature 99 F 97.5 F Pulse Rate 70 79 66 Respiratory Rate 14 14 20 Blood Pressure 126/78 135/87 Pulse Oximetry 93 99 97 Oxygen Delivery Method Room Air Room Air Room Air 12/24/23 11:18 Temperature 98.9 F Pulse Rate 67 Respiratory Rate 20 Blood Pressure 112/56 L Pulse Oximetry 95 Oxygen Delivery Method Room Air BMI result Body Mass Index 21.0 Labs 12/24/23 04:17 12/24/23 04:17 Labs: Laboratory Results - last 48 hr 12/23/23 12/23/23 12/23/23 09:04 11:26 12:05 WBC 10.2 RBC 3.75 L Hgb 11.3 L Hct 35.4 L MCV 94.4 MCH 30.1 MCHC 31.9 RDW 15.4 Plt Count 306 MPV 9.7 Immature Gran % (Auto) 0.2 Neut % (Auto) 67.6 Lymph % (Auto) 13.4 L [place] % (Auto) 7.3 Eos % (Auto) 10.8 H Baso % (Auto) 0.7 Lymph # (Auto) 1.4 [place] # (Auto) 0.7 Eos # (Auto) 1.1 H Baso # (Auto) 0.1 Abs Immat Gran (auto) 0.02 Absolute Neuts (auto) 6.9 Absolute Nucleated RBC 0.000 Nucleated RBC % (auto) 0.0 Sodium 136 Potassium 4.8 D Chloride 106 Carbon Dioxide 24 Anion Gap 11 L BUN 16 Creatinine 0.83 Estim Creat Clear Calc 88.8 Estimated GFR > 60 Random Glucose 104 Calcium 8.7 Total Bilirubin 0.3 AST 28 ALT 22 Alkaline Phosphatase 107 Troponin I High Sens 16.8 D 17.8 Total Protein 6.9 Albumin 3.3 L Urine Opiates Screen POSITIVE H Urine Fentanyl Screen POSITIVE H Ur Barbiturates Screen Not Detected Ur Phencyclidine Scrn Not Detected Ur Amphetamines Screen Not Detected U Benzodiazepines Scrn Not Detected Urine Cocaine Screen POSITIVE H U Marijuana (THC) Screen POSITIVE H 12/24/23 04:17 WBC 8.8 RBC 3.79 L Hgb 11.3 L Hct 36.1 L MCV 95.3 MCH 29.8 MCHC 31.3 RDW 15.9 Plt Count 308 MPV 10.1 Immature Gran % (Auto) 0.2 Neut % (Auto) 56.1 Lymph % (Auto) 21.9 [place] % (Auto) 7.5 Eos % (Auto) 13.6 H Baso % (Auto) 0.7 Lymph # (Auto) 1.9 [place] # (Auto) 0.7 Eos # (Auto) 1.2 H Baso # (Auto) 0.1 Abs Immat Gran (auto) 0.02 Absolute Neuts (auto) 4.9 Absolute Nucleated RBC 0.000 Nucleated RBC % (auto) 0.0 Sodium 144 Potassium 3.9 Chloride 109 H Carbon Dioxide 27 Anion Gap 12 BUN 15 Creatinine 0.80 Estim Creat Clear Calc 92.1 Estimated GFR > 60 Random Glucose 80 Calcium 9.0 Total Bilirubin 0.2 AST 13 ALT 20 Alkaline Phosphatase 101 Troponin I High Sens Total Protein 5.7 L Albumin 2.9 L Urine Opiates Screen Urine Fentanyl Screen Ur Barbiturates Screen Ur Phencyclidine Scrn Ur Amphetamines Screen U Benzodiazepines Scrn Urine Cocaine Screen U Marijuana (THC) Screen Mental Status Exam Mental Status Exam Patient Appearance: Appropriate Level of Consciousness: Awake and Alert Patient Behavior: Guarded Affect Description: Flat (irritable ) Medications Medications Current Medications Acetaminophen (Acetaminophen 325 Mg Tablet) 650 mg PO Q6H PRN PRN Reason: Pain, Mild (Pain Scale 1-3) Amiodarone HCl (Amiodarone Hcl 200 Mg Tablet) 400 mg PO BID [facility] Last Admin: 12/24/23 09:01 Dose: 400 mg Ondansetron HCl (Ondansetron Hcl 4 Mg/2 Ml Vial) 4 mg IVPUSH Q8H PRN PRN Reason: Nausea and Vomiting Sodium Chloride (0.9 % Sodium Chloride Flush 3 Ml Syringe) 3 ml IVFLUSH QSHIFT [facility] Last Admin: 12/24/23 09:01 Dose: 3 ml Allergies Allergies Allergy/AdvReac Type Severity Reaction Status Date / Time No Known Allergies Allergy Verified 12/23/23 08:43 Assessment & Plan Assessment & Plan (1) Opioid use disorder: Status: Acute Code(s): F11.90 - Opioid use, unspecified, uncomplicated Assessment and Plan: COWS likely restart on Suboxone this evening or tomorrow morning based on patient presentation patient already connected to provider in the community Total time managing care of this patient today ___30_ minutes. [facility] Past Medical History Medical History (Updated 12/24/23 @ 09:50 by Karthikeyan Kenney MD) Defibrillator discharge ICD (implantable cardioverter-defibrillator) malfunction Arrhythmia Systolic heart failure Cardiac defibrillator in place Ventricular fibrillation Polysubstance use disorder Social History Social History Household Members: None Housing: Homeless Do you presently have visiting nurse or other home services: No Unable to assess alcohol history related to: Refusing to respond Alcohol intake: never Patient Tobacco Use Status: Current everyday Tobacco user Tobacco use type: Cigarette Cigarettes Per Day: 5 e-Cigarette/Vaping Use: Currently Using Second Hand Smoke Exposure: No Substance Use Type: Crack/Cocaine, Heroin and Marijuana service: No
--- NOTE | 2023-12-24 11:59 | MHC.CM.PN ---
This CM met with pt with malware analyst to complete CM intake assessment. Pt self-care, reports homelessness and states he lives on the streets. Pt states he would like help finding a half-way bed at D/C. HCP completed with pt, now on file. Pt will need assistance with transportation at D/C. Pt has no PCP, local list of PCP's given to pt.
--- NOTE | 2023-12-24 15:12 | P.PNIM_ITS ---
Subjective Subjective Date of Service: 12/24/23 Interval History: No acute events overnight. Monitor AFib with very Review of Systems Admits chest pain with pressure secondary to AICD discharge Denies shortness of breath Denies nausea vomiting diarrhea Denies fever chills Physical Exam 2 Vital Signs: Vital Signs: Last Vital Signs Temp 98.9 F 12/24/23 11:18 Pulse 67 12/24/23 11:18 Resp 20 12/24/23 11:18 BP 112/56 L 12/24/23 11:18 Pulse Ox 95 12/24/23 11:18 O2 Del Method Room Air 12/24/23 11:18 BMI result Body Mass Index 21.0 Const: Other: Awake alert no acute distress Resp: Other: Clear to auscultation bilaterally no rales rhonchi or wheezes Cardio: Other: No S4; positive S1-S2; no S3 murmurs rubs or gallops GI: Other: Soft nontender nondistended normoactive bowel sounds Extrem: Other: No edema bilaterally Objective Data Active Medications Acetaminophen (Acetaminophen 325 Mg Tablet) 650 mg PO Q6H PRN PRN Reason: Pain, Mild (Pain Scale 1-3) Amiodarone HCl (Amiodarone Hcl 200 Mg Tablet) 400 mg PO BID [facility] Last Admin: 12/24/23 09:01 Dose: 400 mg Documented By: DEON Buprenorphine/Naloxone (Buprenorphine/Naloxone 8/2 Mg Film) 1 film SUBLINGUAL DAILY [facility] Buprenorphine/Naloxone (Buprenorphine/Naloxone 8/2 Mg Film) 1 film SUBLINGUAL DAILY [facility] Ondansetron HCl (Ondansetron Hcl 4 Mg/2 Ml Vial) 4 mg IVPUSH Q8H PRN PRN Reason: Nausea and Vomiting Sodium Chloride (0.9 % Sodium Chloride Flush 3 Ml Syringe) 3 ml IVFLUSH QSHIFT [facility] Last Admin: 12/24/23 09:01 Dose: 3 ml Documented By: DEON Labs 12/24/23 04:17 12/24/23 04:17 Labs: Laboratory Results - last 24 hr 12/24/23 04:17 MCV 95.3 MCH 29.8 MCHC 31.3 RDW 15.9 Plt Count 308 MPV 10.1 Immature Gran % (Auto) 0.2 Neut % (Auto) 56.1 Lymph % (Auto) 21.9 Reynolds % (Auto) 7.5 Eos % (Auto) 13.6 H Baso % (Auto) 0.7 Lymph # (Auto) 1.9 Reynolds # (Auto) 0.7 Eos # (Auto) 1.2 H Baso # (Auto) 0.1 Abs Immat Gran (auto) 0.02 Absolute Neuts (auto) 4.9 Absolute Nucleated RBC 0.000 Nucleated RBC % (auto) 0.0 Anion Gap 12 Estim Creat Clear Calc 92.1 Estimated GFR > 60 Random Glucose 80 Calcium 9.0 Total Bilirubin 0.2 AST 13 ALT 20 Alkaline Phosphatase 101 Total Protein 5.7 L Albumin 2.9 L Assessment and Plan (1) Defibrillator discharge: Status: Acute (2) Atrial fibrillation: Status: Acute (3) Opioid use disorder: Status: Acute Plan 48-year-old male with known history of polysubstance abuse on Suboxone and noncompliance with medical therapies presents after AICD discharge. This is similar to past episodes and most likely secondary to noncompliance. Last episode underlying rhythm after interrogation was atrial fibrillation with rapid ventricular response 1. AICD discharge secondary to noncompliance with therapies -restart amiodarone load at 400 mg b.i.d. -given monitor showing AFib with rapid response 110s -120s will observe 24 hours to maintain patient's adherence to amiodarone -hopeful DC in a.m. 2. Polysubstance abuse... On Suboxone -stat dose of Suboxone tonight -start daily dosing in a.m. as recommended by addiction Medicine Full code Lovenox Patient requires an ongoing hospital ideation to adequately load with amiodarone given history of noncompliance. High risk for outpatient failure Quality Stroke Does the patient have a stroke diagnosis?: No VTE Prior VTE?: No VTE Risk Level:: Medical - moderate - high VTE Device Contraindication: Treatment Not Indicated VTE Drug Contraindication: N/A - Med Ordered
[2023-12-24] MEDS: Buprenorphine/Naloxone 8/2 mg FILM 1 FILM SUBLINGUAL (16:01)
[2023-12-24] MEDS: Apixaban 5 MG TABLET PO (22:51)
[2023-12-25 03:32] VITALS: BP 138/95; PULSE 63; RESP 18; TEMP 36.6; O2SAT 97
[2023-12-25 07:51] VITALS: BP 135/76; PULSE 51; RESP 20; TEMP 37.2; O2SAT 97
[2023-12-25] MEDS: Apixaban 5 MG TABLET PO (09:52)
[2023-12-25] MEDS: Amiodarone HCL 200 MG TABLET 400 MG PO (09:52)
[2023-12-25] MEDS: Buprenorphine/Naloxone 8/2 mg FILM 1 FILM SUBLINGUAL (09:52)
[2023-12-25] MEDS: 0.9 % Sodium Chloride Flush 3 ML SYRINGE IVFLUSH (09:53)
[2023-12-25 11:34] VITALS: BP 138/67; PULSE 62; RESP 20; TEMP 37.1; O2SAT 96
--- NOTE | 2023-12-25 11:43 | PM.DS ---
DS: Providers Provider Date of Service: 12/25/23 Date of admission: 12/23/23 16:30 Date of discharge: 12/25/23 Primary care physician: None Physician Consults: 12/23/23 16:36 Addiction Medicine Routine Consulting Provider: Addiction Covering Reason for consultation: Suboxone dosing Has provider been notified: Yes Consult to Cardiology Routine Consulting Provider: [facility] Reason for consultation: AICD discharge Has provider been notified: Yes 12/24/23 08:08 Addiction Medicine Routine Consulting Provider: Addiction Covering Reason for consultation: marijuana, heroin and crack/cocaine use Has provider been notified: Yes Attending physician on discharge: Dangelo Singh Discharging clinician: Marilia Mason DS: Diagnosis Discharge Diagnosis (1) Defibrillator discharge: Status: Acute (2) Atrial fibrillation: Status: Acute (3) Opioid use disorder: Status: Acute DS: Summary Hospital Course Hospital Course: From H&P on the day of admission 48-year-old male with a history of cardiac arrest status post AICD who continues to abuse heroin cocaine fentanyl and marijuana presents to ER today after multiple discharges from his AICD. His compliance remains an issue. In the ER, EKG demonstrated sinus bradycardia. Patient has had previous admissions for same and interrogation of AICD demonstrated discharge was AFib flutter with rapid ventricular response. At this point in time he will be admitted and repeated amiodarone load will begin AICD discharge secondary to noncompliance with therapies seen by cardiology - ICD was interrogated. There are 3 episodes of ATP therapy and 3 shocks. On review of the EGMs, suggestive of rather atrial fibrillation with rapid rates. Less likely ventricular tachycardia as it is quite regular. However as it is falling in the VT zone he is getting shocked after ATP. Positive for several drugs including cocaine. restarted on amiodarone, load at 400 mg b.i.d. for two weeks and then 200 mg daily. outpatient follow up with cardiology at [facility]. resume eliquis as per cardiology recommendation Polysubstance abuse seen by addiction medicine, Resumed on suboxone. Has active prescription and will follow up with community provider to continue as outpatient. Time Attestation Total time managing care of this patient today: 35 mintues. Discharge Coordination Time (in mins): 35 Quality: Safe Use of Opioids Does Pt have an Active Cancer Diagnosis on the Problem List?: No Quality: Stroke Does the patient have a stroke diagnosis?: No Physical Exam Vital Signs: Vital Signs: Last Vital Signs Temp 98.7 F 12/25/23 11:34 Pulse 62 12/25/23 11:34 Resp 20 12/25/23 11:34 BP 138/67 12/25/23 11:34 Pulse Ox 96 12/25/23 11:34 O2 Del Method Room Air 12/25/23 11:34 BMI result Body Mass Index 21.0 Const: General: cooperative, comfortable, no acute distress, alert and awake Orientation/consciousness: patient oriented x3 Resp: Effort & Inspection: normal respiratory effort, able to speak in complete sentences, no respiratory distress and no use of accessory muscles Cardio: Rate: regular rate GI: Inspection: No distended Palpation (GI): Soft to palpation Neuro: Other: grossly nonfocal General: patient oriented x3 Discharge Plan Discharge Anticipated Discharge Date/Time: 12/25/23 11:51 Patient Disposition: Assisted Discharge Diagnosis: severe non-ischemic Cardiomyopathy with AICD - admitted with AICD discharges polysubstance abuse paroxysmal atrial fibrillation Referrals: Physician,None [Primary Care Provider] - 1 Week Discharge Medications: New Eliquis 5 mg Tablet 5 mg PO BID 30 Days Qty: 60 0RF amiodarone 200 mg tablet 200 mg PO DAILY Qty: 90 0RF Rx Instructions: Take 400 mg (two tabs) twice daily until January 05, then take 200 mg once daily after that Continued buprenorphine-naloxone 2-0.5 mg film 1 film buccal BID Qty: 14 0RF Rx Instructions: place 1 strip/tab under (each) side of tongue Discharge Orders: Discharge Order (Routine); Ordered 12/25/23 Ordered By: Marilia Mason Stand Alone Forms: Patient Portal Discharge page Care Plan Goals: see below Health Concerns: Nonischemic cardiomyopathy Paroxysmal atrial fibrillation Polysubstance abuse Plan of Treatment: take amiodorone 2 tabs twice daily until January 05 and then take 1 tab daily after that Resume the blood thinner Eliquis as prescribed Call to schedule 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
--- NOTE | 2023-12-25 12:19 | MHC.CM.PN ---
CM met with Patient at bedside with the assist of a [facility] [place] [place] Transportation Lead. Patient has been medically cleared for dc today. Per Patient, he will dc to his 's home and she is on her way to provide transportation. MIRELLA has made Korey aware.
== END 2023-12-25 13:04 | disposition home or self-care (01) | DRG 201 ==
LOC: HO.ED 14:47 → HO.EDOVER 16:35 → HO.IMC 12-24 07:29
PROVIDERS: Admitting Provider Hospitalist; Emergency Provider Emergency Medicine; Visit Provider Physician Assistant Medical
DX: I48.92 Unspecified atrial flutter (principal); I42.8 Other cardiomyopathies; Z45.02 Encounter for adjustment and management of automatic implantable cardiac defibrillator; T46.2X6A Underdosing of other antidysrhythmic drugs, initial encounter; F14.10 Cocaine abuse, uncomplicated; F12.10 Cannabis abuse, uncomplicated; F11.20 Opioid dependence, uncomplicated; Z79.899 Other long term (current) drug therapy
CPT/HCPCS: 36415; 80053; 80307; 84484; 85025; 93005; 99222; 99285

== ENCOUNTER → 2023-12-23 09:12 | Outpatient (BNV) | payer OTHER, SELFPAY | PROVIDERS: Admitting Provider Hospitalist; Emergency Provider Emergency Medicine; Visit Provider Internal Medicine | DX: R94.31 Abnormal electrocardiogram [ECG] [EKG] (principal) | CPT/HCPCS: 93010 ==

== ENCOUNTER → 2023-12-23 16:30 | Outpatient (BNV) | payer OTHER, SELFPAY | PROVIDERS: Admitting Provider Hospitalist; Emergency Provider Emergency Medicine; Visit Provider Hospitalist | DX: T82.897A Other specified complication of cardiac prosthetic devices, implants and grafts, initial encounter (principal); I48.91 Unspecified atrial fibrillation; F11.90 Opioid use, unspecified, uncomplicated; Z91.199 Patient's noncompliance with other medical treatment and regimen due to unspecified reason | CPT/HCPCS: 99223; 99233; 99239 ==

== ENCOUNTER → 2023-12-23 16:30 | Outpatient (BNV) | payer OTHER, SELFPAY | PROVIDERS: Admitting Provider Hospitalist; Emergency Provider Emergency Medicine; Visit Provider Internal Medicine | DX: I48.91 Unspecified atrial fibrillation (principal); Z45.02 Encounter for adjustment and management of automatic implantable cardiac defibrillator; I42.8 Other cardiomyopathies | CPT/HCPCS: 99223 ==

== ENCOUNTER → 2023-12-23 16:30 | Outpatient (BNV) | payer OTHER, SELFPAY | PROVIDERS: Admitting Provider Hospitalist; Emergency Provider Emergency Medicine; Visit Provider Nurse Practitioner Psychiatric/Mental Health | DX: F11.90 Opioid use, unspecified, uncomplicated (principal) | CPT/HCPCS: 99232 ==

== ENCOUNTER 2024-01-30 15:56 | Emergency (ER) | payer OTHER, SELFPAY ==
--- NOTE | 2024-01-30 16:00 | ECG_ITS ---
Test Reason : CHEST PAIN Blood Pressure : / mmHG Vent. Rate : 065 BPM Atrial Rate : 065 BPM P-R Int : 150 ms QRS Dur : 100 ms QT Int : 452 ms P-R-T Axes : 055 000 129 degrees QTc Int : 470 ms Normal sinus rhythm Moderate voltage criteria for LVH, may be normal variant ( R in aVL , Shayan product ) Inferior infarct (cited on or before 23-DEC-2023) ST & T wave abnormality, consider lateral ischemia Abnormal ECG When compared with ECG of 23-DEC-2023 09:12, No significant change was found Referred By: Generic ED Physician Electronically Signed By:GAIL BANERJEE MD
[2024-01-30 16:03] VITALS: BP 117/78; BP 131/70; PULSE 65; PULSE 67; RESP 16; TEMP 36.8; O2SAT 97; O2SAT 99; BMI 24.3
--- NOTE | 2024-01-30 16:29 | ED.CHESTPAIN ---
HPI - Chest Pain General Chief Complaint: Chest Pain Stated Complaint: chest pain Time Seen by Provider: 01/30/24 16:19 History of Present Illness HPI narrative: 48 y/o M patient; PMH atrial fibrillation, polysubstance abuse history, hx cardiac arrest s/p AICD; who presents with report of sudden onset chest pain while being arrested by police. The patient states this morning he was in a usual state of health. Then when he was being arrested by police he was placed on the ground and began to develop central chest pain. He denies associated nausea/vomiting, shortness of breath, or diaphoresis. He states the pain resolved by the time he reached the emergency department. He is requesting to leave at this time. The patient notes a family history of cardiac disease in his mother. He states he last use marijuana, cocaine, and crack yesterday which he used by snorting/smoking. Related Data Previous Rx's ?Medication ?Instructions ?Recorded buprenorphine 2 mg-naloxone 0.5 mg 1 film buccal BID #14 ea 10/02/23 sublingual film amiodarone 200 mg tablet 200 mg PO DAILY #90 tabs 12/25/23 apixaban 5 mg tablet (Eliquis) 5 mg PO BID 30 days #60 tabs 12/25/23 Allergies Allergy/AdvReac Type Severity Reaction Status Date / Time No Known Allergies Allergy Verified 01/30/24 16:05 Review of Systems Review of Systems: Yes all other systems are reviewed and are negative [facility] Past Medical History Attestation statement: The following information was validated with the patient. Source: old records reviewed Medical History Cardiomyopathy Atrial flutter Defibrillator discharge ICD (implantable cardioverter-defibrillator) malfunction Arrhythmia Systolic heart failure Cardiac defibrillator in place Ventricular fibrillation Polysubstance use disorder Social History Social History Household Members: None Housing: Homeless Do you presently have visiting nurse or other home services: No Unable to assess alcohol history related to: Refusing to respond Alcohol intake: never Patient Tobacco Use Status: Current everyday Tobacco user Tobacco use type: Cigarette Cigarettes Per Day: 5 e-Cigarette/Vaping Use: Currently Using Second Hand Smoke Exposure: No Substance Use Type: Crack/Cocaine, Heroin and Marijuana service: No Physical Exam Vital Signs: Vital Signs: Last Vital Signs Pulse 65 01/30/24 16:03 Resp 16 01/30/24 16:03 BP 131/70 01/30/24 16:03 Pulse Ox 99 01/30/24 16:03 BMI result Body Mass Index 24.3 Patient is afebrile and hemodynamically stable. Const: General: cooperative and no acute distress HEENT: Head: Yes normal to inspection and Yes atraumatic Eyes: General: appearance normal, both eyes and all related structures Neck: Neck: Yes normal visual inspection, Yes full ROM, Yes supple and No tender Chest: Other: Small degree of ecchymosis to central chest wall without palpable tenderness/crepitus. Chest palpation & inspection: normal palpation of entire chest wall Resp: Effort & Inspection: normal respiratory effort, able to speak in complete sentences and no respiratory distress Auscultation: clear to auscultation bilaterally Cardio: Rate: regular rate Rhythm: regular rhythm Peripheral pulses: Peripheral pulses 2+ throughout GI: Inspection: Yes normal to inspection and No distended Palpation (GI): Soft to palpation, not firm, nontender, no guarding and not rigid Auscultation: normal bowel sounds Course Course Course Narrative: Patient is afebrile and hemodynamically stable. Patient was agreeable to EKG and vitals. Reevaluation(s) Reevaluation #1: EKG unchanged compared to 12/23/2023. Vitals re-assuring. Small amount of ecchymosis noticed on center of chest wall. Patient states his chest pain has completely resolved. He declined to stay for labs or CXR. The following discussion was had with the patient: This patient has elected to leave against medical advice. In my opinion, the patient has capacity to leave [place]. The patient is clinically sober, free from distracting injury, appears to have intact insight and judgment and reason, and in my opinion has capacity to make decisions. I explained to the patient that his symptoms may represent a heart attack and the patient verbalized understanding of my concerns. I had a discussion with the patient about their EKG and vitals.. I informed the patient that the next step in diagnosis and treatment would be a CXR and labs, and they verbalized understanding of this as well. I explained the risks of leaving without further workup or treatment, which included reasonably foreseeable complications such as , serious injury, permanent disability. I also offered alternatives to departing AMA such as assigning the patient a different provider or an alternate workup pathway. The patient is refusing any further care, specifically CXR, labs, cardiac monitoring, and is leaving against medical advice. I am unable to convince the patient to stay. I have asked them to return as soon as possible to complete their evaluation, and also explained that they were welcome to return to the ER for further evaluation whenever they choose. I have asked the patient to follow up with their primary doctor as soon as possible. I have answered all their questions. Medical Decision Making Independent Interpretation I performed an independent interpretation of an: EKG Interpretation: NSR 65BPM with T wave inversions in leads V4 - V6, unchanged compared to 12/23/2023. Discharge Plan Discharge Instructions: Chest Pain (DC) Additional Instructions: As we discussed, you were seen today for chest pain. Your vitals and EKG were reassuring and you declined any further exam or labs/imaging. Recommend you follow up with your PCP tomorrow for re-exam. Return to the emergency department immediately for: Any further chest pain Difficulty breathing Passing out Prescriptions: No Action buprenorphine-naloxone 2-0.5 mg film 1 film buccal BID Qty: 14 0RF Rx Instructions: place 1 strip/tab under (each) side of tongue Eliquis 5 mg Tablet 5 mg PO BID 30 Days Qty: 60 0RF amiodarone 200 mg tablet 200 mg PO DAILY Qty: 90 0RF Rx Instructions: Take 400 mg (two tabs) twice daily until January 05, then take 200 mg once daily after that Print Language: Lithuanian
[2024-01-30 16:58] VITALS: BP 131/70; PULSE 65; RESP 16; TEMP 36.8; O2SAT 99
== END 2024-01-30 16:59 | disposition home or self-care (01) ==
PROVIDERS: Emergency Provider Emergency Medicine
DX: R07.9 Chest pain, unspecified (principal); F17.210 Nicotine dependence, cigarettes, uncomplicated; Z53.29 Procedure and treatment not carried out because of patient's decision for other reasons
CPT/HCPCS: 93005; 99283

== ENCOUNTER → 2024-01-30 16:00 | Outpatient (BNV) | payer OTHER, SELFPAY | PROVIDERS: Emergency Provider Emergency Medicine; Visit Provider Internal Medicine Cardiovascular Disease | DX: R07.9 Chest pain, unspecified (principal); R94.31 Abnormal electrocardiogram [ECG] [EKG] | CPT/HCPCS: 93010 ==

== ENCOUNTER 2024-05-26 22:13 | Emergency (ER) | payer OTHER, SELFPAY ==
[2024-05-26 22:33] VITALS: BP 133/83; BP 136/100; PULSE 100; PULSE 86; RESP 20; TEMP 36.5; O2SAT 94; BMI 28.0
--- NOTE | 2024-05-26 22:56 | ED_ITS ---
HPI - Overdose General Chief Complaint: Overdose Stated Complaint: OD, 8 MG NARCAN GIVEN Time Seen by Provider: 05/26/24 22:16 Source: patient, EMS and police Mode of arrival: EMS Limitations: no limitations History of Present Illness ED Provider: Dr. Lizbeth Humphries HPI Narrative: patient comes to the emergency room via ambulance and on police custody. According to EMS and PD, bystander found the patient unresponsive in the street. PD was called in Narcan 8 mg intranasally was given to the patient. According to PD, when the patient woke up, patient started being very combative, trying to punch people. Patient was put on restraints and brought to emergency room . On arrival, patient more awake and alert,, and cooperative. Patient denies SI or HI, admits to using marijuana, to his knowledge there was not any other drug in it. However, per PD, there was a crack pipe next to the patient. patient is awake and alert, patient states that he does not believe he fell, denies any headache, no neck pain, no injuries. Related Data Previous Rx's ?Medication ?Instructions ?Recorded buprenorphine 2 mg-naloxone 0.5 mg 1 film buccal BID #14 ea 10/02/23 sublingual film amiodarone 200 mg tablet 200 mg PO DAILY #90 tabs 12/25/23 apixaban 5 mg tablet (Eliquis) 5 mg PO BID 30 days #60 tabs 12/25/23 Allergies Allergy/AdvReac Type Severity Reaction Status Date / Time No Known Allergies Allergy Verified 05/26/24 22:38 Review of Systems Review of Systems: Constitutional : No Weight loss, No Fever, No Chills, No Night Sweats, No Fatigue, No Malaise ENT/Mouth : No Hearing loss, No Ear Pain, No Nasal Congestion, No Sinus Pain, No Hoarseness, No sore throat, No Rhinorrhea, No Swallowing Difficulty Eyes: No Eye Pain, No Swelling, No Redness, No Foreign Body, No Discharge, No Vision Changes Cardiovascular : No Chest Pain, No SOB, No Dyspnea on Exertion, No Orthopnea, No Edema, No Palpitations Respiratory : No Cough, No Sputum, No Wheezing, No Smoke Exposure, No Dyspnea Gastrointestinal : No Nausea, No Vomiting, No Diarrhea, No Constipation, No abdominal Pain, No Hematochezia, No Melena Genitourinary : no irregular bleeding, No Dysuria, No Urinary Frequency, No Hematuria, No Urinary Incontinence, No Urgency, No Flank Pain, No Urinary Flow Changes, No Hesitancy Musculoskeletal : No joint pain, No Myalgias, No Joint Swelling Skin : No Skin Lesions, No rash Neuro : No Weakness, No Numbness, No Paresthesias, No Loss of Consciousness, No Dizziness, No Headache Psych : No Anxiety/Panic, No Depression, No SI/HI/AH/VH, polysubstance abuse Heme/Lymph: No Bruising, No Bleeding,No Lymphadenopathy Endocrine : No Polyuria, No Polydipsia, No Temperature Intolerance [facility] Past Medical History Medical History Cardiomyopathy Atrial flutter Defibrillator discharge ICD (implantable cardioverter-defibrillator) malfunction Arrhythmia Systolic heart failure Cardiac defibrillator in place Ventricular fibrillation Polysubstance use disorder Social History Social History Household Members: None Housing: Homeless Do you presently have visiting nurse or other home services: No Unable to assess alcohol history related to: Refusing to respond Alcohol intake: never Patient Tobacco Use Status: Current everyday Tobacco user Tobacco use type: Cigarette Cigarettes Per Day: 5 e-Cigarette/Vaping Use: Currently Using Second Hand Smoke Exposure: No Substance Use Type: Crack/Cocaine, Heroin and Marijuana Advance Directives: Yes Advance Directives on File: Yes Advance Directives Date on File: 12/26/23 service: No Physical Exam Vital Signs: Vital Signs: Last Vital Signs Temp 97.7 F 05/26/24 22:33 Pulse 86 05/26/24 22:33 Resp 20 05/26/24 22:33 BP 133/83 05/26/24 22:33 Pulse Ox 94 05/26/24 22:33 O2 Del Method Room Air 05/26/24 22:33 BMI result Body Mass Index 28.0 Const: Other: Appearance: Alert. Oriented X3. No acute distress. Eyes: Pupils equal, round and reactive to light. ENT: Pharynx normal. Neck: Normal inspection. Neck supple. No lymph nodes noted. No crepitus CVS: Normal heart rate and rhythm. Pulses normal. Normal S1 and S2 Respiratory: No respiratory distress. Breath sounds normal. No Wheezing. No rales Abdomen: Soft and nontender. No rigidity. No distention. Skin: Skin warm and dry. Normal skin color. Normal skin turgor. Extremities: No lower extremity edema. No Lacerations. No Rash Neuro: Oriented X 3. No motor deficit. No sensory deficit. Moving all extremities. No slurred speech. CN 2 through 12 grossly intact Psych: calm, cooperative, normal affect Course Course Course Narrative: When patient arrived to the ED, patient overall feeling better Medical Decision Making Medical Decision Making MDM Narrative: - Patient remains alert and oriented x3, coherent. - oxygen saturation constantly above 91%, no oxygen desaturations. - Patient declined care/sude eval - patient will be provided with home Narcan - Physician observation started at midnight Differential Diagnosis Differential Diagnoses: The differential diagnosis associated with the presentation includes ( accidental overdose, polysubstance abuse) Admission/Observation Consideration of admission/observation: Escalation of care including admission/observation considered ( patient is under physician observation, waiting to be more sober and to be discharged.) Critical Care Time Critical Care Time Critical Care Time: Yes Total Critical Care Time: 35 Attestation: I have personally provided critical care time. Time includes review of lab data, radiology results, discussion with consultants, and monitoring for potential decompensation. Intervention performed as documented. Discharge Plan Discharge Clinical Impression: Overdose Patient Disposition: Home, Self-Care Instructions: Adult Overdose (ED) Additional Instructions: Please follow-up with your primary care physician tomorrow. If you have any worsening or new symptoms, please return to the emergency room or call 911 Prescriptions: No Action buprenorphine-naloxone 2-0.5 mg film 1 film buccal BID Qty: 14 0RF Rx Instructions: place 1 strip/tab under (each) side of tongue Eliquis 5 mg Tablet 5 mg PO BID 30 Days Qty: 60 0RF amiodarone 200 mg tablet 200 mg PO DAILY Qty: 90 0RF Rx Instructions: Take 400 mg (two tabs) twice daily until January 05, then take 200 mg once daily after that Print Language: Cook Islander
--- NOTE | 2024-05-26 23:01 | ECG_ITS ---
Test Reason : OVERDOSE Blood Pressure : / mmHG Vent. Rate : 082 BPM Atrial Rate : 082 BPM P-R Int : 156 ms QRS Dur : 116 ms QT Int : 412 ms P-R-T Axes : 065 021 080 degrees QTc Int : 481 ms Normal sinus rhythm Incomplete left bundle branch block Minimal voltage criteria for LVH, may be normal variant ( Shayan product ) ST & T wave abnormality, consider lateral ischemia Prolonged QT Abnormal ECG When compared with ECG of 30-JAN-2024 16:01, Criteria for Inferior infarct are no longer Present T wave inversion less evident in Lateral leads Referred By: Lizbeth Humphries Electronically Signed By:DUSTY SPEARS
--- NOTE | 2024-05-26 23:38 | MHC.EDTECH ---
pt belongings sent to [facility] upon arrival
[2024-05-27 04:47] VITALS: BP 94/55; PULSE 62; RESP 14; TEMP 36.7
[2024-05-27 06:13] VITALS: BP 102/50; PULSE 63; RESP 14; TEMP 36.8; O2SAT 96
[2024-05-27] MEDS: Naloxone HCl Nasal TAKE HOME 4 MG SPRAY 8 MG NOSTRILALT (06:20)
--- NOTE | 2024-05-27 06:54 | PC.NURSE ---
Pt's take home narcan and discharge paperwork was left behind, pt did not want it
== END 2024-05-27 06:39 | disposition home or self-care (01) ==
PROVIDERS: Emergency Provider Emergency Medicine
DX: T50.901A Poisoning by unspecified drugs, medicaments and biological substances, accidental (unintentional), initial encounter (principal); Y92.9 Unspecified place or not applicable; R40.4 Transient alteration of awareness; I49.01 Ventricular fibrillation; I48.92 Unspecified atrial flutter; Z95.810 Presence of automatic (implantable) cardiac defibrillator
CPT/HCPCS: 93005; 99283; 99284

== ENCOUNTER 2024-09-06 05:28 | Inpatient (IN) | payer OTHER, SELFPAY ==
[2024-09-06] VITALS (7 sets, daily range): BP systolic 131–153; BP diastolic 91–107; PULSE 85–122; RESP 16–35; TEMP 36.3–36.8; O2SAT 95–99; BMI 24.8
--- NOTE | ~2024-09-06 | XR_ITS ---
EXAMINATION: XR CHEST CLINICAL INFORMATION: possible aspiration COMPARISON: None available. TECHNIQUE: Frontal view of the chest was obtained. FINDINGS: The cardiomediastinal silhouette is within normal limits. A single chamber pacer is in place. There is no focal lung consolidation or pleural effusions. The bony structures and the soft tissues are unremarkable. XR/XR chest 1V IMPRESSION: No acute cardiopulmonary process. Electronically signed by: Carter Hermosillo MD 09/06/2024 06:45 AM [facility]
--- NOTE | ~2024-09-06 | CT_ITS ---
EXAMINATION: CT HEAD WITHOUT CONTRAST CLINICAL INFORMATION: Altered mental status COMPARISON: None available. TECHNIQUE: Contiguous axial imaging was performed from the skull base to vertex without intravenous administration of contrast. This CT examination was performed using dose optimization techniques as appropriate, variously including the following: *Automated exposure control *Adjustment of mA and/or kV according to patient size (this includes techniques or standardized protocols for targeted exams where dose is matched to indication/reason for exam; i.e. extremities or head) *Use of iterative reconstruction technique DLP: 719 mGy-cm FINDINGS: Ventricles, sulci and cisterns are normal. There is asymmetric regional abnormal decreased attenuation in central and medial left temporal pole. There is no midline shift, no abnormal intra- or extra- axial fluid accumulation. Marques and white matter differentiation is normal. Bone window images show no evidence of skull fracture. The right maxillary sinus shows marked circumferential mucosal thickening and possible large polypoid mucosal lesion. CT/CT head/brain wo IV con IMPRESSION: 1. Findings are concerning for acute medial and central left temporal pole cerebral infarction. 2. No intracranial hemorrhage or skull fracture is seen. 3. No evidence of space occupying lesion could be found. 4. Further evaluation with noncontrast MRI of brain is recommended. This critical result was discussed with Rancho Fish M.D. on 09/06/2024 at 747 hours and it was ascertained that the content and urgency of this report was understood at the time of direct communication. Electronically signed by: Bee Sanchez MD 09/06/2024 07:48 AM [facility]
--- NOTE | ~2024-09-06 | CT_ITS ---
EXAMINATION: CTA NECK WITH CONTRAST (STROKE) CTA BRAIN WITH CONTRAST (STROKE) CLINICAL INFORMATION: Acute left temporal pole infarction. Suspect acute stroke. Assess for major vessel occlusion. Please call report. COMPARISON: Noncontrast CT scan of brain on 09/06/2024 TECHNIQUE: CTA of the head and neck was performed in the axial plane from the mediastinum to the skull vertex using 70 mL Omnipaque 350 intravenous contrast. Additional reformatted multiplanar images including maximum intensity projection MIP images are generated on the CT workstation. This CT examination was performed using dose optimization techniques as appropriate, variously including the following: *Automated exposure control *Adjustment of mA and/or kV according to patient size (this includes techniques or standardized protocols for targeted exams where dose is matched to indication/reason for exam; i.e. extremities or head) *Use of iterative reconstruction technique DLP: 1550 mGy-cm FINDINGS: Ventricles, sulci and cisterns are normal. The asymmetric decreased attenuation in left temporal pole is much less conspicuous on the current examination. There is no midline shift, no abnormal intra- or extra- axial fluid accumulation. Marques and white matter differentiation is normal. Postcontrast images show normal enhancement of major intracerebral blood vessels. No enhancing intracranial mass lesion or abnormal meningeal enhancement is seen. Bone window images show no evidence of skull fracture. Persistent marked right maxillary sinus disease with circumferential mucosal thickening and probable polypoid mucosal lesion is again visualized. CT/CT angio head neck STROKE IMPRESSION: 1. The previously seen left temporal pole asymmetric decrease in attenuation is much less conspicuous on the current examination. The previous finding could be due to beam hardening artifacts. The need for MRI examination will have to be decided by clinical suspicion. 2. No intracranial hemorrhage or skull fracture is seen. 3. No evidence of space occupying or enhancing intracranial mass lesion could be found. 4. Unchanged marked right maxillary sinusitis.. EXAMINATION: CT angiogram of brain. COMPARISON: None available. FINDINGS: There is normal visualization of bilateral anterior, middle and posterior cerebral arteries, internal carotid arteries, basilar artery and terminal portions of bilateral vertebral arteries. Anterior communicating artery is normal. Bilateral posterior communicating arteries are normal. Bilateral internal carotid siphons are smoothly patent. A small right internal carotid siphon C7 segment infundibulum is seen measuring 1.7 mm in AP diameter, 1.4 mm in vertical height. Timing of the bolus allows assessment of the major dural venous sinuses. The major cerebral venous sinuses show normal contrast filling. IMPRESSION: 1. Small right internal carotid siphon infundibulum is found. 2. No focal cerebral arterial lesion or significant arterial stenosis is seen. EXAMINATION: CT angiogram of neck. COMPARISON: None available. STENOSIS MEASUREMENT: Degree of stenosis was measured and calculated based on NASCET criteria. Carotid stenosis reference using NASCET criteria: % stenosis = (1 - narrowest ICA diameter/diameter of distal cervical ICA) x 100. Mild - < 50% stenosis. Moderate - 50-69% stenosis. Severe - 70-94% stenosis. Near occlusion - 95-99% stenosis. Occluded - 100% stenosis. FINDINGS: Evaluation is limited by patient motion blurring. RIGHT SIDE: Right internal carotid artery: Smoothly patent. Right external carotid artery: Smoothly patent. Right common carotid artery: Smoothly patent. Right vertebral artery: Smoothly patent and dominant. LEFT SIDE: Left internal carotid artery: Smoothly patent. Left external carotid artery: Smoothly patent. Left common carotid artery: Smoothly patent. Left vertebral artery: Smoothly patent. At the superior mediastinum, the visualized right innominate artery, bilateral subclavian arteries and common carotid arteries are smoothly patent starting from the origin at the aortic arch. IMPRESSION: 1. Limited CT angiogram of the neck due to patient motion blurring. No evidence of significant carotid stenosis. 2. Patent bilateral vertebral arteries with right-sided dominance. Electronically signed by: Bee Sanchez MD 09/06/2024 09:17 AM [facility]
--- NOTE | 2024-09-06 05:39 | ECG_ITS ---
Test Reason : OVERDOSE Blood Pressure : / mmHG Vent. Rate : 108 BPM Atrial Rate : 108 BPM P-R Int : 116 ms QRS Dur : 102 ms QT Int : 352 ms P-R-T Axes : 000 004 084 degrees QTc Int : 471 ms Sinus tachycardia Moderate voltage criteria for LVH, may be normal variant ( Sokolow-Moreno , Shayan product ) T wave abnormality, consider lateral ischemia Abnormal ECG No previous ECGs available Referred By: Lizbeth Humphries Electronically Signed By:Chuy Marroquin
[2024-09-06 05:55] LABS: Venous Blood Gas Refer to POC result
[2024-09-06 05:56] LABS: Basophils Absolute Auto 0.1 X10*3/uL (0.0-0.2); Basophils Percent Auto 0.5 % (0-2); Eosinophils Absolute Auto 0.8 X10*3/uL (0.0-0.4); Eosinophils Percent Auto 6.4 % (0-4); Hematocrit 49.8 % (42.0-52.0); Hemoglobin 16.3 g/dl (14.0-18.0); Imm Gran Abs Auto 0.04 X10*3/uL (0.00-0.03); Imm Gran Pct Auto 0.3 % (0.0-0.4); Lymphocytes Absolute Auto 1.6 X10*3/uL (1.2-4.9); Lymphocytes Percent Auto 13.3 % (20-40); MANUAL DIFF FLAG NO; Mean Corpuscular HGB Conc 32.7 g/dl (31.0-36.0); Mean Corpuscular Hemoglobin 31.2 pg (27.0-33.0); Mean Corpuscular Volume 95.2 fL (80.0-98.0); Mean Platelet Volume 9.5 fL (9.4-12.4); Monocytes Absolute Auto 0.6 X10*3/uL (0.1-1.2); Monocytes Percent Auto 4.6 % (2-11); Neutrophils Absolute Auto 9.2 x10*3/uL (2.0-8.3); Neutrophils Percent Auto 74.9 % (45-73); Platelet Count 309 X10*3/uL (160-400); Red Blood Count 5.23 X10*6/uL (4.60-5.80); Red Cell Distribution Width 14.1 % (11.0-16.0); White Blood Count 12.3 X10*3/uL (4.8-10.8)
--- NOTE | 2024-09-06 05:56 | ED.OVERDOSE ---
HPI - Overdose General Chief Complaint: Overdose Stated Complaint: OD narcan X2 Time Seen by Provider: 09/06/24 05:39 Source: EMS Mode of arrival: EMS Limitations: other History of Present Illness ED Provider: Dr. Lizbeth Humphries HPI Narrative: Patient comes to the emergency room via ambulance. At this time, we do not know the patient's name. According to EMS, patient was staying over at a friend's house, patient is otherwise homeless. Throughout the night, they noticed that the patient was gurgling, unresponsive, friends were unable to wake him up and ambulance came. The patient's friends report that he was using heroin earlier today. Patient received Narcan by bystanders and then when the EMS arrived, he received a 2nd dose of intranasal Narcan patient arrived to the emergency room with a GCS of 9. Eventually, patient woke up a bit, did not answer any questions, looked around, went back to sleep. Patient is under the influence of drugs, unable to give us any history Related Data Allergies Allergy/AdvReac Type Severity Reaction Status Date / Time Unable to Assess Allergy Verified 09/06/24 05:39 Review of Systems Review of Systems: Yes Other [facility] Social History Social History Do you have a plan to hurt others: No Plan Physical Exam Vital Signs: Vital Signs: Last Vital Signs Temp 97.8 F 09/06/24 05:37 Pulse 109 H 09/06/24 05:37 Resp 17 09/06/24 05:37 BP 153/107 H 09/06/24 05:37 Pulse Ox 96 09/06/24 05:37 O2 Del Method Room Air 09/06/24 05:37 BMI result Body Mass Index 24.8 Const: Other: Appearance: Somnolent, arousable to painful stimuli, wakes up, looks around a falls back asleep Eyes: Pupils equal, round and reactive to light. ENT: Pharynx normal. Neck: Normal inspection. Neck supple. No lymph nodes noted. No crepitus CVS: Normal heart rate and rhythm. Pulses normal. Normal S1 and S2 Respiratory: No respiratory distress. Breath sounds normal. No Wheezing. No rales Abdomen: Soft and nontender. No rigidity. No distention. Skin: Skin warm and dry. Normal skin color. Normal skin turgor. Extremities: No lower extremity edema. No Lacerations. No Rash Neuro: Unable to participating cranial nerve assessment Psych: calm, cooperative, normal affect Course Course Course Narrative: Of labs pending Prior to arrival, patient received 2 doses of Narcan Medical Decision Making Medical Decision Making [facility] [place] Narrative: My interpretation of EKG: Normal sinus rhythm, heart rate 108, ST segment depressions in V4 V5 V6, no reciprocal changes, QTC 471, no previous EKGs for comparison since patient is not on the system since we do not know patient's real name. Patient has cardiac history, patient has a palpable defibrillator versus pacemaker -my interpretation of labs: Patient's white blood cell count 12.3, chemistry within normal limits, normal LFTs, ETOH negative, COVID negative, influenza negative. Troponin negative. -patient has cardiomegaly, defibrillator/pacemaker present At this time, 06:45, patient has not been able to tell us his real name Patient incontinent of stool, likely secondary to the Narcan that he received My interpretation of CT scan of the head: No intracranial bleed. Radiology report pending. Since the patient's name is not correct, it is unlikely that the patient's report will cross over. Lab Data [facility] [place] Lab Attestation statement: I reviewed the patient's lab results. 09/06/24 05:48 09/06/24 05:48 Labs: Lab Results 09/06/24 09/06/24 Range/Units 05:48 05:56 WBC 12.3 H (4.8-10.8) X10*3/uL RBC 5.23 (4.60-5.80) X10*6/uL Hgb 16.3 (14.0-18.0) g/dl Hct 49.8 (42.0-52.0) % MCV 95.2 (80.0-98.0) fL MCH 31.2 (27.0-33.0) pg MCHC 32.7 (31.0-36.0) g/dl RDW 14.1 (11.0-16.0) % Plt Count 309 (160-400) X10*3/uL MPV 9.5 (9.4-12.4) fL Immature Gran % (Auto) 0.3 (0.0-0.4) % Neut % (Auto) 74.9 H (45-73) % Lymph % (Auto) 13.3 L (20-40) % [place] % (Auto) 4.6 (2-11) % Eos % (Auto) 6.4 H (0-4) % Baso % (Auto) 0.5 (0-2) % Lymph # (Auto) 1.6 (1.2-4.9) X10*3/uL [place] # (Auto) 0.6 (0.1-1.2) X10*3/uL Eos # (Auto) 0.8 H (0.0-0.4) X10*3/uL Baso # (Auto) 0.1 (0.0-0.2) X10*3/uL Abs Immat Gran (auto) 0.04 H (0.00-0.03) X10*3/uL Absolute Neuts (auto) 9.2 H (2.0-8.3) x10*3/uL Absolute Nucleated RBC 0.000 (0.0-0.012) X10*3/uL Nucleated RBC % (auto) 0.0 (0.0-0.2) /100WBC VBG pH 7.46 H (7.32-7.43) VBG pCO2 59 mmHg VBG pO2 47 mmHg VBG HCO3 43 H (22-26) mmol/L VBG O2 Saturation 77.0 % VBG Base Excess 16.1 mmol/L Sodium 143 (135-145) mmol/L Potassium 4.0 (3.3-5.1) mmol/L Chloride 108 (96-108) mmol/L Carbon Dioxide 27 (22-29) mmol/L Anion Gap 12 (12-20) BUN 11 (9-16) mg/dL Creatinine 0.94 (0.5-1.4) mg/dL Estim Creat Clear Calc 74.4 Estimated GFR > 60 Random Glucose 101 (60-115) mg/dL Lactic Acid 1.4 (0.5-2.0) mmol/L Calcium 10.5 H (8.4-10.2) mg/dL Magnesium 2.2 (1.6-2.6) mg/dL Total Bilirubin 0.4 (0.0-1.0) mg/dL Direct Bilirubin 0.1 (0.0-0.5) mg/dL AST 23 (5-37) U/L ALT 19 (0-40) U/L Alkaline Phosphatase 98 (39-117) U/L Troponin I High Sens 13.4 (<3.5-35.0) ng/L Total Protein 8.0 (6.5-8.0) g/dL Albumin 4.1 (3.5-5.0) g/dL Ethyl Alcohol < 10 mg/dL COVID-19 (REJI) Negative (Negative) COVID-19 Clin Com See Note Influenza Type A (CHRISTIN) Negative (Negative) Influenza Type B (CHRISTIN) Negative (Negative) Influenza A & B Note See Note Independent Interpretation I performed an independent interpretation of an: Plain X-Ray Radiology Impression Discussion of test interpretation with radiology: I have reviewed the radiologist's reading. Radiologist Impression: The cardiomediastinal silhouette is within normal limits. A single chamber pacer is in place. There is no focal lung consolidation or pleural effusions. The bony structures and the soft tissues are unremarkable. XR/XR chest 1V IMPRESSION: No acute cardiopulmonary process. Critical Care Time Critical Care Time Critical Care Time: Yes Total Critical Care Time: 60 Attestation: I have personally provided critical care time. Time includes review of lab data, radiology results, discussion with consultants, and monitoring for potential decompensation. Intervention performed as documented. Discharge Plan Discharge Clinical Impression: Drug overdose Patient Disposition: Still a Patient
[2024-09-06 06:02] LABS: VBG Base Excess 16.1 mmol/L; VBG HCO3 43 mmol/L (22-26); VBG pCO2 59 mmHg; VBG pH 7.46 (7.32-7.43); VBG pO2 47 mmHg
--- NOTE | 2024-09-06 06:07 | PC.NURSE ---
Patient BIBA from patient's friend home for overdose. Patient snorted heroine few hours prior to arrival to ED, per his friends, patient found to be unresponsive, making gurgling sounds, his friends Narcan patient with 4 mg IN x2 doses with minimal improvement. When EMS arrived, patient was unresponsive, having pinpoint pupils, GCS 9, O2 Sat 94% RA, patient placed on NC at 2 LPM with O2 Sat up to 100%. At ED, patient was not able to answer any questions, he opened his eyes and went back to sleep. Patient under influence of drugs and unable to state his name or provide any history. O2 Sat 98-100% on 2 LPM, O2 removed, patient saturating 95% on RA. 20 G IV line established in R AC, labs drawn and sent to ab, EKG competed by radiology technologist, cardiac monitoring initiated, HR 90-105.
[2024-09-06 06:10] LABS: Lactic Acid 1.4 mmol/L (0.5-2.0)
[2024-09-06 06:15] LABS: Troponin-I High Sensitivity 13.4 ng/L (<3.5-35.0)
[2024-09-06 06:16] LABS: IDNOW Serial# 08D9AD1C; IDNOW Serial# 152EDE1D; Influenza A Negative (Negative); Influenza B2 Negative (Negative)
[2024-09-06 06:17] LABS: Alanine Aminotransferase 19 U/L (0-40); Albumin Level 4.1 g/dL (3.5-5.0); Alkaline Phosphatase 98 U/L (39-117); Anion Gap 12 (12-20); Aspartate Amino Transferase 23 U/L (5-37); Bilirubin Direct 0.1 mg/dL (0.0-0.5); Bilirubin Total 0.4 mg/dL (0.0-1.0); Blood Urea Nitrogen 11 mg/dL (9-16); COVID-19 Test Negative (Negative); Calcium 10.5 mg/dL (8.4-10.2); Carbon Dioxide 27 mmol/L (22-29); Chloride 108 mmol/L (96-108); Creatinine Clr Calc Pharmacy 74.4; Estimated Glomerular Filt Rate > 60; Ethanol < 10 mg/dL; Glucose Random 101 mg/dL (60-115); Magnesium 2.2 mg/dL (1.6-2.6); Sodium 143 mmol/L (135-145)
--- NOTE | 2024-09-06 06:22 | PC.NURSE ---
Patient had 1 episode of bowel incontinence, ana care provided, bed linens changed. VSS, O2 Sat 93-95% RA.
--- NOTE | 2024-09-06 06:26 | PC.NURSE ---
Patient changed over into a hospital attire in presence of security.
--- NOTE | 2024-09-06 07:01 | PC.NURSE ---
Resumed care of patient at 0700, he is currently still sleeping, pt vitals remain stable at this time, awaiting pt to become more alert to figure out identity at this time. Still attempting to assess language barrier at this time
--- NOTE | 2024-09-06 07:40 | PC.NURSE ---
This RN and tech were able to get pt to state Name and , registration aware and account was able to be found. IVF started per MAR
[2024-09-06] MEDS: 0.9 % Sodium Chloride 1,000 ML 999 ML IVCONT (07:42)
[2024-09-06] MEDS: iohexoL 350 MG/ML 100 ML INFUS..BTL IV (08:27)
[2024-09-06 08:57] LABS: Appearance Urine Cloudy; Color Urine Yellow; Glucose Urine UA Negative (Negative); Leukocyte Esterase Urine Negative (Negative); Nitrite Urine Negative (Negative); PH >= 9.0 (5.0-9.0); Urine Blood Negative (Negative); Urine Ketones Negative (Negative); Urine Protein Negative (Neg-Trace)
--- NOTE | 2024-09-06 08:58 | PC.NURSE ---
alerted this RN of Head CT showing acute stroke, stat CTA ordered, pt brought to CT on portable monitor with RN oversee, pt continues to be minimally responsive. On arrival back to room pt chest sounding wet, wanted Giuliana kidd RN in room to assess pt for stroke, pt able to follow some minima commands at this time. Pt to fail swallow eval until able to assess safely. When putting linen in dirty bag, 1 bag of heroin found, at this time pt had been changed over with no visitors so medical team assuming it was stuck on patient. baggie brought to security for proper disposal. Pt O2 prior to CT 98% on RA, when placed back on monitor he was 90% pt placed on 2L for support. All other vitals remain stable at this time
[2024-09-06 09:08] LABS: Amphetamine Screen Urine Not Detected (Not Detect); Barbiturates, Urine Not Detected (Not Detect); Benzodiazepines Screen Urine POSITIVE (Not Detect); Buprenorphine Scr Not Detected (Not Detect); Cannabinoid Screen Urine Not Detected (Not Detect); Cocaine Screen Urine POSITIVE (Not Detect); Fentanyl, urine POSITIVE (Not Detect); Methadone Screen, Urine Not Detected (Not Detect); Opiate Screen Urine POSITIVE (Not Detect); Oxycodone Screen Urine Not Detected (Not Detect); Phencyclidine Screen Urine Not Detected (Not Detect)
--- NOTE | 2024-09-06 09:11 | MHC.STROKE ---
Called to ED after Head CT report for bed 5 showed an acute infarct. Spoke with Dr. Fish who received sign out for this patient. Apparently, patient was brought in as a Guille Soto and triaged as an overdose. EMS reports that he had been using heroin and noted to be lethargic and making gurgling noises . Bystanders attempted to give Narcan with no effect. EMS was called and patient brought to ED. Upon my assessment with Dr. Fish, patient arousable to verbal stimuli. Able to state his name although speech is garbled. Follows most commands. Dr. Fish speaking to patient in English, plan of care explained. Dr. Fish spoke with Dr. Godoy. No TNK due to unknown onset time. Pt with coarse cough. RN to fail bedside swallow and Speech and Hearing eval will be ordered. Attempted to discuss risk factors however will need to wait until patient more alert and engaged. Pt continued to nod off during care. Will assist as needed.
--- NOTE | 2024-09-06 09:21 | MHC.STROKE ---
This RN present for NIH scoring done by Dr. Fish. [facility] 6 at this time
--- NOTE | 2024-09-06 10:20 | PC.NURSE ---
Pt provided hyegine care as he was incon of a BM. Pt is able to verbalize some more words at this time but still very mumbled
--- NOTE | 2024-09-06 10:30 | PHA.MEDREC ---
Addendum entered by Shannon Marks [facility] 09/06/24 10:50: provider made aware at this time Original Note: Pharmacy Consult ? Medication Reconciliation Pharmacy has attempted to complete the medication reconciliation. Non Destructive Evaluation Manager was present, patient was unable to be aroused. Patient has claims for Suboxone, Amiodarone, levothyroxine valsartan and xarelto but all claims were only for 30 days and last picked up april of 2024. Suspect non compliance however I can not confirm with patient.
--- NOTE | 2024-09-06 10:41 | PM.IMHP ---
History of Present Illness Date of Service: 09/06/24 Attending physician on admission: Dangelo Singh Chief Complaint: unresponsive Patient is a 49-year-old male with a past medical history significant substance use, paroxysmal atrial fibrillation ventricular fibrillation s/p defibrillator, hypothyroidism and hypertension, presented to the ED after a presumed drug overdose. He was found unresponsive by a friend who reported that he has snorted heroin a few hours prior. He was making gurgling sounds in his friend administered 2 doses of intranasal Narcan with minimal improvement. When EMS arrived he was unresponsive with pinpoint pupils, GCS 9, O2 saturation 94% on room air which improved to 100% with 2 L via NC. EKG with sinus tachycardia, CTA head and neck negative, head CT with acute medial and central left temporal lobe infarct. Given that the timeline is unclear his unresponsiveness, patient was not given TNK. He has been unable to provide any history. Review of Systems Review of Systems: Yes Unobtainable due to mental condition [facility] Medical History Cardiomyopathy Atrial flutter Defibrillator discharge ICD (implantable cardioverter-defibrillator) malfunction Arrhythmia Systolic heart failure Cardiac defibrillator in place Ventricular fibrillation Polysubstance use disorder Social History (System 09/06/24 @ 09:27 by Manuela Salazar) Household Members: None Housing: Homeless Do you presently have visiting nurse or other home services: No Unable to assess alcohol history related to: Refusing to respond Alcohol intake: never Patient Tobacco Use Status: Current everyday Tobacco user Tobacco use type: Cigarette Cigarettes Per Day: 5 e-Cigarette/Vaping Use: Currently Using Second Hand Smoke Exposure: No Use of substances other than those prescribed or required for medical reasons: Yes Substance Use Type: Heroin Advance Directives: Yes Advance Directives on File: Yes Advance Directives Date on File: 12/26/23 Do you have a plan to hurt others: No Plan service: No Meds Allergies Allergy/AdvReac Type Severity Reaction Status Date / Time No Known Allergies Allergy Verified 09/06/24 09:27 Active Medications: Current Medications Acetaminophen (Acetaminophen 325 Mg Tablet) 650 mg PO Q6H PRN PRN Reason: Pain, Mild (Pain Scale 1-3), fever or headache Calcium Carbonate (Calcium Carbonate 750 Mg Tab.Chew) 750 mg PO Q4H PRN PRN Reason: Heartburn Enoxaparin Sodium (Enoxaparin Sodium 40 Mg/0.4 Ml Syringe) 40 mg SUBCUT Q24H [facility] Lactated Ringer's (Lr) 1,000 mls @ 100 mls/hr IVCONT .Q10H [facility] Magnesium Hydroxide (Milk Of Magnesia 30 Ml Oral.Susp) 30 ml PO DAILY PRN PRN Reason: Constipation Melatonin (Melatonin 3 Mg Tablet) 6 mg PO BEDTIME PRN PRN Reason: Insomnia Ondansetron HCl (Ondansetron Hcl 4 Mg/2 Ml Vial) 4 mg IVPUSH Q8H PRN PRN Reason: Nausea and Vomiting Pravastatin Sodium (Pravastatin Sodium 40 Mg Tablet) 40 mg PO DAILY [facility] Sodium Chloride (0.9 % Sodium Chloride Flush 3 Ml Syringe) 3 ml IVFLUSH QSHIFT [facility] Home Medications ?Medication ?Instructions ?Recorded ?Confirmed ?Last Taken ?Type Unobtainable 09/06/24 09/06/24 Unknown History Physical Exam Vital Signs and Narrative: Vital Signs: Last Vital Signs Temp 97.9 F 09/06/24 10:19 Pulse 85 09/06/24 10:19 Resp 16 09/06/24 10:19 BP 151/106 H 09/06/24 10:19 Pulse Ox 98 09/06/24 10:19 O2 Del Method Nasal Cannula 09/06/24 10:19 O2 Flow Rate 2 09/06/24 10:19 BMI result Body Mass Index 24.8 General: responsive to physical stimulation and minimally to verbal stimulation and rarely to commands, responds hospital Resp: CTA bilaterally CVS: S1, S2, RRR GI: +BS, NT, no distention Skin: Warm, dry Neuro: PERRL, not responsive to commands for remainder of exam Extremities: No LE edema Psych: unable to determine Results Labs 09/06/24 05:48 09/06/24 05:48 Labs: Laboratory Results - last 24 hr 09/06/24 09/06/24 09/06/24 05:48 05:56 08:47 MCV 95.2 MCH 31.2 MCHC 32.7 RDW 14.1 Plt Count 309 MPV 9.5 Immature Gran % (Auto) 0.3 Neut % (Auto) 74.9 H Lymph % (Auto) 13.3 L [place] % (Auto) 4.6 Eos % (Auto) 6.4 H Baso % (Auto) 0.5 Lymph # (Auto) 1.6 [place] # (Auto) 0.6 Eos # (Auto) 0.8 H Baso # (Auto) 0.1 Abs Immat Gran (auto) 0.04 H Absolute Neuts (auto) 9.2 H Absolute Nucleated RBC 0.000 Nucleated RBC % (auto) 0.0 VBG pH 7.46 H VBG pCO2 59 VBG pO2 47 VBG HCO3 43 H VBG O2 Saturation 77.0 VBG Base Excess 16.1 Anion Gap 12 Estim Creat Clear Calc 74.4 Estimated GFR > 60 Random Glucose 101 Lactic Acid 1.4 Calcium 10.5 H Magnesium 2.2 Total Bilirubin 0.4 Direct Bilirubin 0.1 AST 23 ALT 19 Alkaline Phosphatase 98 Troponin I High Sens 13.4 Total Protein 8.0 Albumin 4.1 Urine Color Yellow Urine Appearance Cloudy Urine pH >= 9.0 Ur Specific [place] 1.020 Urine Protein Negative Urine Glucose (UA) Negative Urine Ketones Negative Urine Blood Negative Urine Nitrite Negative Ur Leukocyte Esterase Negative Urine Opiates Screen POSITIVE H Ur Buprenorphine Scrn Not Detected Ur Oxycodone Screen Not Detected Urine Methadone Screen Not Detected Urine Fentanyl Screen POSITIVE H Ur Barbiturates Screen Not Detected Ur Phencyclidine Scrn Not Detected Ur Amphetamines Screen Not Detected U Benzodiazepines Scrn POSITIVE H Urine Cocaine Screen POSITIVE H U Marijuana (THC) Screen Not Detected Ethyl Alcohol < 10 COVID-19 (REJI) Negative COVID-19 Clin Com See Note Influenza Type A (CHRISTIN) Negative Influenza Type B (CHRISTIN) Negative Influenza A & B Note See Note Imaging Radiologist's Impressions: Impressions Chest X-Ray 09/06/24 06:25 IMPRESSION: No acute cardiopulmonary process. Electronically signed by: Carter Hermosillo MD 09/06/2024 06:45 AM [facility] [place] 09/06/24 06:30 IMPRESSION: 1. Findings are concerning for acute medial and central left temporal pole cerebral infarction. 2. No intracranial hemorrhage or skull fracture is seen. 3. No evidence of space occupying lesion could be found. 4. Further evaluation with noncontrast MRI of brain is recommended. This critical result was discussed with Rancho Fish M.D. on 09/06/2024 at 747 hours and it was ascertained that the content and urgency of this report was understood at the time of direct communication. Electronically signed by: Bee Sanchez MD 09/06/2024 07:48 AM [facility] [place] Head/Neck CTA 09/06/24 07:54 IMPRESSION: 1. The previously seen left temporal pole asymmetric decrease in attenuation is much less conspicuous on the current examination. The previous finding could be due to beam hardening artifacts. The need for MRI examination will have to be decided by clinical suspicion. 2. No intracranial hemorrhage or skull fracture is seen. 3. No evidence of space occupying or enhancing intracranial mass lesion could be found. 4. Unchanged marked right maxillary sinusitis.. EXAMINATION: CT angiogram of brain. COMPARISON: None available. FINDINGS: There is normal visualization of bilateral anterior, middle and posterior cerebral arteries, internal carotid arteries, basilar artery and terminal portions of bilateral vertebral arteries. Anterior communicating artery is normal. Bilateral posterior communicating arteries are normal. Bilateral internal carotid siphons are smoothly patent. A small right internal carotid siphon C7 segment infundibulum is seen measuring 1.7 mm in AP diameter, 1.4 mm in vertical height. Timing of the bolus allows assessment of the major dural venous sinuses. The major cerebral venous sinuses show normal contrast filling. IMPRESSION: 1. Small right internal carotid siphon infundibulum is found. 2. No focal cerebral arterial lesion or significant arterial stenosis is seen. EXAMINATION: CT angiogram of neck. COMPARISON: None available. STENOSIS MEASUREMENT: Degree of stenosis was measured and calculated based on NASCET criteria. Carotid stenosis reference using NASCET criteria: % stenosis = (1 - narrowest ICA diameter/diameter of distal cervical ICA) x 100. Mild - < 50% stenosis. Moderate - 50-69% stenosis. Severe - 70-94% stenosis. Near occlusion - 95-99% stenosis. Occluded - 100% stenosis. FINDINGS: Evaluation is limited by patient motion blurring. RIGHT SIDE: Right internal carotid artery: Smoothly patent. Right external carotid artery: Smoothly patent. Right common carotid artery: Smoothly patent. Right vertebral artery: Smoothly patent and dominant. LEFT SIDE: Left internal carotid artery: Smoothly patent. Left external carotid artery: Smoothly patent. Left common carotid artery: Smoothly patent. Left vertebral artery: Smoothly patent. At the superior mediastinum, the visualized right innominate artery, bilateral subclavian arteries and common carotid arteries are smoothly patent starting from the origin at the aortic arch. IMPRESSION: 1. Limited CT angiogram of the neck due to patient motion blurring. No evidence of significant carotid stenosis. 2. Patent bilateral vertebral arteries with right-sided dominance. Electronically signed by: Bee Sanchez MD 09/06/2024 09:17 AM [facility] [place] Assessment and Plan (1) Acute CVA (cerebrovascular accident): Status: Acute (2) Drug overdose: Qualifiers: Encounter type: initial encounter Injury intent: undetermined intent Qualified Code(s): T50.904A - Poisoning by unspecified drugs, medicaments and biological substances, undetermined, initial encounter Status: Acute (3) Polysubstance use disorder: Status: Acute (4) Cardiac defibrillator in place: Status: Acute (5) Paroxysmal A-fib: Status: Acute Plan Patient is a 49-year-old male with a past medical history significant substance use, paroxysmal atrial fibrillation ventricular fibrillation s/p defibrillator, hypothyroidism and hypertension, presented to the ED after a presumed drug overdose. EKG with sinus tachycardia, CTA head and neck negative, head CT with acute medial and central left temporal lobe infarct. Given that the timeline is unclear his unresponsiveness, patient was not given TNK. CVA - L medial and central temporal lobe infarct - EKG with sinus tachycardia - CTA head and neck negative - head CT with acute medial and central left temporal lobe infarct - no TNK as time of unresponsiveness is unable to be determined - add lipid panel, and TSH, likely noncompliant with meds - BP elevated but will maintain for today, treat is SBP >200 - ASA 325mg FL, add high dose statin daily when cleared for PO - neuro consult - will hold on neuro's recommendation for MRI as CT + - failed bedside swallow, continue NPO - LR 100/hr - PT/OT/speech eval - admit to med tele paroxysmal a fib - ?compliance of jostin pt unable to give history - EKG with sinus tach v fib -- s/p defibrillator HTN - hold meds unless SBP >200 TONEY - addiction med consult when pt more responsive presumed full code as pt is unresponsive VTE prophy: lovenox Patient with new CVA after recent OD, requiring admission for at least 2 midnights stay for treatment and monitoring. Quality Stroke Does the patient have a stroke diagnosis?: Yes Reason for No Anti-thrombotic by Day Two: Contraindicated VTE Prior VTE?: No VTE Risk Level:: Medical - moderate - high VTE Device Contraindication: Treatment Not Indicated VTE Drug Contraindication: N/A - Med Ordered
--- OUTSIDE RECORDS SUMMARY | 2024-09-06 10:42 | XMS_ITS | Continuity of Care Document ---
Author Organization [facility] (Former[facility] Adult Medicine Address [address] [place] [address]- Care Team Providers Care Shirt Marker Name Role Phone Not on Staff, PCP Primary Care Physician Unavail able Encounter [facility] [place] Date(s): 12/23/23 - 02/08/24 [facility] Adult Medicine [address] [place] [phone] Attending Physician: Not on Staff, Attending MD Allergies, Adverse Reactions, Alerts No Known Medication Allergies Medications amiodarone 200 mg oral tablet 400 mg, By Mouth, Daily, # 90 tablet, Refills 3, Tot. Refills 3, Maintenance, 08/25/23 15:55:00 EST, Route to Pharmacy Electronically, [facility]/pharmacy #[id number], Partial fill upon patient request if the prescription is for a schedule II opioid drug., 175, cm... Start Date: 08/25/23 Stop Date: 08/19/24 Status: Ordered carvedilol 12.5 mg oral tablet 12.5 mg, 1, tablet, By Mouth, 2 times a day, # 60 tablet, Refills 3, Tot. Refills 3, Maintenance, 08/19/23 12:23:00 EST, Route to Pharmacy Electronically, [facility]/pharmacy #[id number], Partial fill upon patient request if the prescription is for a schedule II o... Start Date: 08/19/23 Status: Ordered Lasix 20 mg oral tablet 20 mg, 1, tablet, By Mouth, Daily, # 90 tablet, Refills 3, Tot. Refills 3, Maintenance, 08/25/23 15:55:00 EST, Route to Pharmacy Electronically, [facility]/pharmacy #[id number], Partial fill upon patient request if the prescription is for a schedule II opioid drug... Start Date: 08/25/23 Stop Date: 08/19/24 Status: Ordered levothyroxine 75 mcg (0.075 mg) oral tablet = 75 mcg, By Mouth, Daily, # 90 each, 0 Refills, Maintenance, 08/08/23 10:10:00 EDT, Tablet, [facility], Partial fill upon patient request if the prescription is for a schedule II opioid drug., 175, cm, 08/08/23 4:31:00 EDT, Height Start Date: 08/08/23 Stop Date: 11/06/23 Status: Ordered Patient Care team information Care Team Personnel Name: Veda Vazquez RN Position: [facility] RN Member Role: Primary Care Nurse Name: Dana Dodd Position: [facility] RN Supv Member Role: Primary Care Nurse Name: Mary King RN Position: S RN Member Role: Primary Care Nurse Name: Kendra Hagan RN Position: S RN Member Role: Primary Care Nurse Name: Karime Bailey Position: [facility] RN Supv Member Role: Primary Care Nurse Name: Brandon Echeverria LPN Position: S RN Member Role: Primary Care Nurse Name: Not on Staff, PCP Position: [facility] Physician (General Medicine) Member Role: PCP Name: Sina Robles Position: [facility] RN Member Role: Primary Care Nurse Care Team Related Persons Name: EILSE DELGADO Address: home [address] [place] [id number] Name: ELISE MONTERO Address: home [address] [place] [address]
--- OUTSIDE RECORDS SUMMARY | 2024-09-06 10:43 | XMS_ITS | Continuity of Care Document ---
Author Organization [facility] Address [address] [place] [address]- Care Team Providers Care Legal Clerk Name Role Phone Not on Staff, PCP Primary Care Physician Unavail able Encounter [facility] [place] Date(s): 09/26/23 - 01/24/24 [facility] [address] [place] [id number]- Attending Physician: Lyle Ontiveros MD Admitting Physician: Lyle Ontiveros MD Referring Physician: oMhini CHARM FILTER OPERATOR HELPER, Olga Allergies, Adverse Reactions, Alerts No Known Medication Allergies Medications amiodarone 200 mg oral tablet 400 mg, By Mouth, Daily, # 90 tablet, Refills 3, Tot. Refills 3, Maintenance, 08/25/23 15:55:00 EST, Route to Pharmacy Electronically, [facility]/pharmacy #[id number], Partial fill upon patient request if the prescription is for a schedule II opioid drug., 175, cm... Start Date: 08/25/23 Stop Date: 08/19/24 Status: Ordered carvedilol 12.5 mg oral tablet 12.5 mg, 1, tablet, By Mouth, 2 times a day, # 60 tablet, Refills 3, Tot. Refills 3, Maintenance, 08/19/23 12:23:00 EST, Route to Pharmacy Electronically, [facility]/pharmacy #[id number], Partial fill upon patient request if the prescription is for a schedule II o... Start Date: 08/19/23 Status: Ordered Lasix 20 mg oral tablet 20 mg, 1, tablet, By Mouth, Daily, # 90 tablet, Refills 3, Tot. Refills 3, Maintenance, 08/25/23 15:55:00 EST, Route to Pharmacy Electronically, [facility]/pharmacy #[id number], Partial fill upon patient request if the prescription is for a schedule II opioid drug... Start Date: 08/25/23 Stop Date: 08/19/24 Status: Ordered levothyroxine 75 mcg (0.075 mg) oral tablet = 75 mcg, By Mouth, Daily, # 90 each, 0 Refills, Maintenance, 08/08/23 10:10:00 EDT, Tablet, [facility], Partial fill upon patient request if the prescription is for a schedule II opioid drug., 175, cm, 08/08/23 4:31:00 EDT, Height Start Date: 08/08/23 Stop Date: 11/06/23 Status: Ordered Patient Care team information Care Team Personnel Name: Veda Vazquez RN Position: [facility] RN Member Role: Primary Care Nurse Name: Dana Dodd Position: [facility] RN Supv Member Role: Primary Care Nurse Name: Mary King RN Position: [facility] RN Member Role: Primary Care Nurse Name: Kendra Hagan RN Position: S RN Member Role: Primary Care Nurse Name: Karime Bailey Position: [facility] RN Supv Member Role: Primary Care Nurse Name: Brandon Echeverria LPN Position: [facility] RN Member Role: Primary Care Nurse Name: Not on Staff, PCP Position: [facility] Physician (General Medicine) Member Role: PCP Name: Sina Robles Position: [facility] RN Member Role: Primary Care Nurse Care Team Related Persons Name: ELISE DELGADO Address: home [address] [place] [address] Name: ELISE MONTERO Address: home [address] [address]
--- OUTSIDE RECORDS SUMMARY | 2024-09-06 10:43 | XMS_ITS | Continuity of Care Document ---
Author Organization [facility] Address [address] [place] [address]- Care Team Providers Care Brooch And Bracelet Maker Name Role Phone Not on Staff, PCP Primary Care Physician Unavail able Encounter [facility] [place] Date(s): 04/20/24 - 08/18/24 [facility] [address] [place] [address]- Attending Physician: Lyle Ontiveros MD Admitting Physician: Lyle Ontiveros MD Referring Physician: Not on Staff, Referring MD Encounter Type: Pre-OutPatient One Time Allergies, Adverse Reactions, Alerts No Known Medication Allergies Immunizations Given and Recorded Vaccine Date Status Refusal Reason CGIS-MgP-[id number] 12y+ bivalent booster vax 01/23/23 Recorded SARS-CoV-2 (COVID-19) mRNA BNT-162b2 vac 11/27/22 Recorded SARS-CoV-2 (COVID-19) mRNA BNT-162b2 vac 11/06/22 Recorded Medications amiodarone 200 mg oral tablet 400 mg, By Mouth, Daily, # 90 tablet, Refills 3, Tot. Refills 3, Maintenance, 08/25/23 3:55:00 PM EST, Route to Pharmacy Electronically, [facility]/pharmacy #[id number], Partial fill upon patient request if the prescription is for a schedule II opioid drug., 175, cm, 08/25/23 15:03:00 EST, Height Start Date: 08/25/23 Stop Date: 08/19/24 Status: Ordered Quantity: 90.0 Unit: tablet Repeat number: 4 carvedilol 12.5 mg oral tablet 12.5 mg, 1, tablet, By Mouth, 2 times a day, # 60 tablet, Refills 3, Tot. Refills 3, Maintenance, 08/19/23 12:23:00 PM EST, Route to Pharmacy Electronically, [facility]/pharmacy #[id number], Partial fill upon patient request if the prescription is for a schedule II opioid drug., 175, cm, 08/08/23 15:52:00 EDT, Height Start Date: 08/19/23 Status: Ordered Quantity: 60.0 Unit: tablet Repeat number: 4 Lasix 20 mg oral tablet 20 mg, 1, tablet, By Mouth, Daily, # 90 tablet, Refills 3, Tot. Refills 3, Maintenance, 08/25/23 3:55:00 PM EST, Route to Pharmacy Electronically, [facility]/pharmacy #[id number], Partial fill upon patient request if the prescription is for a schedule II opioid drug., 175, cm, 08/25/23 15:03:00 EST, Height Start Date: 08/25/23 Stop Date: 08/19/24 Status: Ordered Quantity: 90.0 Unit: tablet Repeat number: 4 levothyroxine 75 mcg (0.075 mg) oral tablet = 75 mcg, By Mouth, Daily, # 90 each, 0 Refills, Maintenance, 08/08/23 10:10:00 AM EDT, Tablet, [facility], Partial fill upon patient request if the prescription is for a schedule II opioid drug., 175, cm, 08/08/23 4:31:00 EDT, Height Start Date: 08/08/23 Stop Date: 11/06/23 Status: Ordered Quantity: 90.0 Unit: each Repeat number: 1 Suboxone 12 mg-3 mg sublingual film 1 film, Sublingual, Daily, 0 Refills, Maintenance, 03/12/24 1:40:00 PM EDT, Partial fill upon patientrequest if the prescription is for a schedule II opioid drug. Start Date: 03/12/24 Status: Ordered Repeat number: 1 valsartan 40 mg oral tablet 40 mg, 1, tablet, By Mouth, Daily, Refills 0, Maintenance, 03/12/24 1:39:00 PM EDT, Partial fill uponpatient request if the prescription is for a schedule II opioid drug. Start Date: 03/12/24 Status: Ordered Repeat number: 1 Xarelto 20 mg oral tablet 1 tablet = 20 mg, By Mouth, Daily at supper, # 30 tablet, 2 Refills, Maintenance, 03/12/24 4:18:00 PMEDT, Tablet, [facility], Partial fill upon patient request if the prescription is fora schedule II opioid drug., 175, cm, 02/12/24 16:31:00 EDT, Height Start Date: 03/12/24 Stop Date: 06/10/24 Status: Ordered Quantity: 30.0 Unit: tablet Repeat number: 3 Problem List Condition Confirmation Course Effective Dates Status H ealth Status Informant A-fib 1 Confirmed Active ICD (implantable cardioverter-defibril lator) in place 2 Confirmed 07/2023 Active Nonischemic cardiomyopathy 3 Confirmed Active History of cardiac arrest 4 Confirmed Active Polysubstance abuse Confirmed Active 1per EP procedure note: Ablation:Afib Ablation, Pulse Field Ablation (PFA 2Per Cardiology note 02/2024 Given his cardiac arrest and low ejection fraction he underwent ICD implantation with a [employer] device and was discharged from the hospital 3Cardiology note from 08/2023 notes: nonischemic cardiomyopathy with significantly reduced EF 4per EP procedure note: Ablation:Afib Ablation, Pulse Field Ablation (PFA) Patient Care team information Care Team Personnel Name: Veda Vazquez RN Position: S RN Member Role: Primary Care Nurse Name: Dana Dodd Position: [facility] RN Supv Member Role: Primary Care Nurse Name: Mary King RN Position: S RN Member Role: Primary Care Nurse Name: Kendra Hagan RN Position: S RN Member Role: Primary Care Nurse Name: Karime Bailey Position: S RN Supv Member Role: Primary Care Nurse Name: Not on Staff, PCP Position: [facility] Physician (General Medicine) Member Role: PCP Name: Sina Robles RN Position: [facility] RN Member Role: Primary Care Nurse Care Team Related Persons Name: ELISE MONTERO Insurance Providers Guarantor name: BHAVANI MISHRA GÓMEZ Health Plan Information #: 1 Payer: [facility] Member Number: [id number] Policy Number: NA Group Number: [id number] Health Plan Information #: 2 Payer: [facility] Member Number: [id number] Policy Number: NA Group Number: NA Health Plan Information #: 3 [facility]ayer[facility] Member Number: NA Policy Number: NA Group Number: NA
--- OUTSIDE RECORDS SUMMARY | 2024-09-06 10:43 | XMS_ITS | Continuity of Care Document ---
Author Organization [facility] Address [address] [place] [address]- Care Team Providers Care Medication Technician Name Role Phone Not on Staff, PCP Primary Care Physician Unavail able Encounter [facility] Date(s): 02/26/24 - 02/26/[address] [address]- Encounter Diagnosis Palpitations(Final) - 02/26/24 Elevated serum creatinine(Final) - 02/26/24 Opiate use(Final) - 02/26/24 AICD present, double chamber(Final) - 02/26/24 Heart failure(Final) - 02/26/24 Discharge Disposition: A-D/C Residential, Mcfp, or Snf Fac Attending Physician: Abbie Wright MD Admitting Physician: Abbie Wright MD Referring Physician: Not on Staff, Referring MD Allergies, Adverse Reactions, Alerts No Known Medication Allergies Medications amiodarone 200 mg oral tablet 400 mg, By Mouth, Daily, # 90 tablet, Refills 3, Tot. Refills 3, Maintenance, 08/25/23 15:55:00 EST, Route to Pharmacy Electronically, [facility]/pharmacy #[id number], Partial fill upon patient request if the prescription is for a schedule II opioid drug., 175, cm... Start Date: 08/25/23 Stop Date: 08/19/24 Status: Ordered carvedilol 12.5 mg oral tablet 12.5 mg, 1, tablet, By Mouth, 2 times a day, # 60 tablet, Refills 3, Tot. Refills 3, Maintenance, 08/19/23 12:23:00 EST, Route to Pharmacy Electronically, [facility]/pharmacy #[id number], Partial fill upon patient request if the prescription is for a schedule II o... Start Date: 08/19/23 Status: Ordered cloNIDine 0.1 mg oral tablet 0.1 mg, 1, tablet, By Mouth, Refills 0, Maintenance, 02/12/24 16:32:00 EDT, Partial fill upon patient request if the prescription is for a schedule II opioid drug. Start Date: 02/12/24 Status: Ordered Lasix 20 mg oral tablet 20 mg, 1, tablet, By Mouth, Daily, # 90 tablet, Refills 3, Tot. Refills 3, Maintenance, 08/25/23 15:55:00 EST, Route to Pharmacy Electronically, [facility]/pharmacy #[id number], Partial fill upon patient request if the prescription is for a schedule II opioid drug... Start Date: 08/25/23 Stop Date: 08/19/24 Status: Ordered levothyroxine 75 mcg (0.075 mg) oral tablet = 75 mcg, By Mouth, Daily, # 90 each, 0 Refills, Maintenance, 08/08/23 10:10:00 EDT, Tablet, [facility], Partial fill upon patient request if the prescription is for a schedule II opioid drug., 175, cm, 08/08/23 4:31:00 EDT, Height Start Date: 08/08/23 Stop Date: 11/06/23 Status: Ordered Results Radiology Reports * Exam Date Time Procedure Performing Provider Status 02/26/24 6:27 PM Chest 2 Views Frontal and Lat Howard Baxter; Sunita (Verified) Notes: (Chest 2 Views Frontal and Lat) Reason For Exam: Shortness of Breath, Fever;Other: RESULT: Chest 2 Views Frontal and Lat PA and lateral chest dated February 26, 2024. Comparison films are from December 01, 2023. HISTORY: Shortness of breath. FINDINGS: The cardiac silhouette is within normal limits for size. A pacemaker/ICD is noted on the left. A wire extends to overlie the right ventricle. No airspace infiltrate or pleural effusion is identified. Visualized osseous structures are within normal limits. IMPRESSION: No evidence of acute pulmonary disease. Examination [id number]. Thank you for allowing me to participate in the care of this patient. WSN: [id number] Ordering Physician: Marietta Saavedra Dictated By: Rasheed Barrett MD Dictated Date/Time: 02/26/24 6:29 pm Reviewed By: Rasheed Barrett MD Signed By: Rasheed Barrett MD Signed Date/Time: 02/26/24 6:29 pm Transcribed By: MIGUEL Transcribed Date/Time: 02/26/24 6:29 pm Vital Signs Most recent to oldest [Reference Range]: 1 2 3 Oxygen Saturation [94-100 %] 98 % (02/26/24 10:12 PM) 99 % (02/26/24 7:53 PM) 98 % (02/26/24 2:16 PM) Pulse Rate [55-90 bpm] 84 bpm (02/26/24 10:12 PM) 65 bpm (02/26/24 7:53 PM) 67 bpm (02/26/24 2:16 PM) Blood Pressure [90-138/55-84 mm Hg] 117/86mm Hg (02/26/24 10:12 PM) 124/67mm Hg (02/26/24 7:53 PM) 107/62mm Hg (02/26/24 2:16 PM) Respiratory Rate [16-30 br/min] 16 br/min (02/26/24 10:12 PM) 14 br/min *L* (02/26/24 7:53 PM) 18 br/min (02/26/24 2:16 PM) Temperature [96.8-100.4 DegF] 98.6 DegF (02/26/24 10:12 PM) 98.7 DegF (02/26/24 7:53 PM) 97.9 DegF (02/26/24 2:19 PM) Mode of Delivery (Oxygen) Room air (02/26/24 10:12 PM) Room air (02/26/24 7:53 PM) Room air (02/26/24 2:16 PM) Blood pressure sites Arm, left (02/26/24 10:12 PM) Arm, left (02/26/24 7:53 PM) Arm, left (02/26/24 2:16 PM) Temperature Route Oral (02/26/24 10:12 PM) Oral (02/26/24 7:53 PM) Oral (02/26/24 2:19 PM) EKG study * Event Display: ECG 12-Lead Authored Date: Please click on pdf link to open report * Event Display: ECG 12-Lead Authored Date: Ventricular Rate: 66 BPM Atrial Rate: 66 BPM P-R Interval: 156 ms QRS Duration: 106 ms Q-T Interval: 426 ms QTC Calculation(Bazett): 446 ms P Cayey: 61 degrees R Cayey: 38 degrees T Cayey: 108 degrees Normal sinus rhythm Incomplete left bundle branch block T wave abnormality, consider lateral ischemia Abnormal ECG When compared with ECG of 12-FEB-2024 16:24, No significant change was found Confirmed by Joaquín Loaiza ([id number]) on 02/26/2024 2:36:16 PM [place]: Joaquín Loaiza * Event Display: EKG Authored Date: Note * Devorah Leung MD: PERFORM Event Display: Patient Education Leaflets Authored Date: [id number] Palpitations ?? [id number] Palpitaciones card??acas Las palpitaciones son la sensaci??n de que el coraz??n late con rapidez, ann o de manera irregular. Algunas personas dicen que sienten rde un martilleo , que se les va a salir el coraz??n o que el coraz??n parece saltarles en el pecho . Las palpitaciones pueden presentarse en personas con alguna enfermedad del coraz??n. Violeta tambi??n pueden darse en personas sanas. Causas relacionadas con el coraz??n: ??? Problema del ritmo card??aco (arritmia) ??? Enfermedad de las v??lvulas card??acas ??? Enfermedad del m??sculo card??aco (Miocardiopat??a) ??? Arteriopat??a coronaria ??? Presi??n arterial david Causas no relacionadas con el coraz??n: ??? Ciertos medicamentos tales dre los inhaladores para tratar el asma y los descongestivos ??? Algunos suplementos herb??ceos, pastillas y bebidas energizantes, y pastillas para adelgazar ??? Las drogas estimulantes ilegales, dre la coca??na, el crank , la metanfetamina, la fenciclidina (PCP, por beyer sigla en ingl??s) y el ??xtasis ??? La cafe??na, el alcohol y el tabaco ??? Algunas afeccionesm??dicas, tales dre enfermedad de la gl??ndula tiroides, anemia, ansiedad y ataques de p??consuelo En algunos casos, no se puede determinar la causa. Cuidados en el hogar Siga estas sugerencias de cuidados en el hogar: ??? Evite el exceso de cafe??na, alcohol, tabaco o cualquier droga estimulante. ??? Com??ntele a beyer m??dico sobre todos los medicamentos recetados, de venta kaela o hierbas medicinales que usted tome. ?? Atenci??n de seguimiento ??? Programe kenny visita de seguimiento con beyer m??dico, o berry lo que le indic??. ?? Llame al 911 Esta es la forma m??s r??pida y edmondson de llegar al departamento de emergencias. Los chelsey??dicos tambi??n pueden iniciar el tratamiento lara al hospital, si fuese necesario. No espere a que los s??ntomas vesna graves para llamar al 911. Estos son los motivos por los cuales debe llamar al 911: ??? Dolor de pecho ??? Falta de aire ??? Sensaci??n de mareos, desmayos o p??rdida del conocimiento ??? Ritmo card??aco muy irregular ??? Ritmo card??aco acelerado que le genera incomodidad ??? Frecuencia card??leonard m??s lenta de lo habitual junto con otros s??ntomas ??? Dolor de pecho acompa??ado de debilidad, mareos, sudoraci??n excesiva, n??useas o v??mitos ??? Gran somnolencia, confusi??n o debilidad ??? Debilidad en un brazo o kenny pierna, o en un lado de la radha ??? Problemas para hablar o meredith ?? Cu??ndo debe buscar atenci??n m??dica Llame a beyer proveedor de atenci??n m??dica de inmediato si tiene palpitaciones que palm m??s de lo normal o son diferentes de las palpitaciones que mcghee tenido en el pasado. ?? Last Reviewed Date: 2021 ?? 4716-4540 [email or web address]. Todos los derechos reservados. Esta informaci??n no pretende sustituir la atenci??n m??dica profesional. S??lo beyer m??dico puede diagnosticar y tratar un problema de jermaine. ?? Patient Care team information Care Team Personnel Name: Veda Vazquez RN Position: [facility] RN Member Role: Primary Care Nurse Name: Dana Dodd Position: [facility] RN Supv Member Role: Primary Care Nurse Name: Mary King RN Position: [facility] RN Member Role: Primary Care Nurse Name: Kendra Hagan RN Position: [facility] RN Member Role: Primary Care Nurse Name: Karime Bailey Position: [facility] RN Supv Member Role: Primary Care Nurse Name: Brandon Echeverria LPN Position: [facility] RN Member Role: Primary Care Nurse Name: Not on Staff, PCP Position: [facility] Physician (General Medicine) Member Role: PCP Name: Sina Robles Position: [facility] RN Member Role: Primary Care Nurse Care Team Related Persons Name: ELISE DELGADO Address: home [address] [place] [address] [place], [place] [address] Name: ELISE MONTERO Address: [address] [address]
--- OUTSIDE RECORDS SUMMARY | 2024-09-06 10:43 | XMS_ITS | Continuity of Care Document ---
Author Organization [facility] ter Address [address] [place] [id number] Care Team Providers Care Lead Printer Name Role Phone Not on Staff, PCP Primary Care Physician Unavail able Encounter [facility] [place] Date(s): 07/29/23 - 08/08/[address] [address]- Encounter Diagnosis Cardiac arrest(Final) - 07/29/23 Ventricular tachycardia(Final) - 07/29/23 Discharge Disposition: A-D/C Home Attending Physician: Lazaro BARBOZA, Peter Sheppard Admitting Physician: Abhi Hathaway MD Referring Physician: Not on Staff, Referring MD Allergies, Adverse Reactions, Alerts No Known Medication Allergies Medications amiodarone 200 mg oral tablet 400 mg, By Mouth, Daily, # 90 tablet, Refills 0, Tot. Refills 0, Maintenance, 08/08/23 10:09:00 EDT, Route to Pharmacy Electronically, [facility], Partial fill upon patient request if the prescription is for a schedule II opioid drug., 1... Start Date: 08/08/23 Stop Date: 11/06/23 Status: Ordered Augmentin 875 mg-125 mg oral tablet 1 tablet, By Mouth, Every 12 hours, for 5 days, # 10 tablet, 0 Refills, Acute 08/13/23 10:11:00 EST, 08/08/23 10:11:00 EDT, Tablet, [facility], Partial fill upon patient request if the prescription is for a schedule II opioid drug., 175,... Start Date: 08/08/23 Stop Date: 08/13/23 Status: Ordered carvedilol 6.25 mg oral tablet 6.25 mg, Tablet, By Mouth, Hold for: HR <60, 08/08/23 9:00:00 EDT Start Date: 08/08/23 Stop Date: 08/08/23 Status: Completed carvedilol 6.25 mg oral tablet 6.25 mg, By Mouth, 2 times a day, # 90 each, Refills 0, Tot. Refills 0, Maintenance, 08/08/23 10:09:00 EDT, Route to Pharmacy Electronically, [facility], Partial fill upon patient request if the prescription is for a schedule II opioid d... Start Date: 08/08/23 Stop Date: 11/06/23 Status: Ordered Lasix 20 mg oral tablet 20 mg, 1, tablet, By Mouth, Daily, # 90 tablet, Refills 0, Tot. Refills 0, Maintenance, 08/08/23 10:11:00 EDT, Route to Pharmacy Electronically, [facility], Partial fill upon patient request if the prescription is for a schedule II opioi... Start Date: 08/08/23 Stop Date: 11/06/23 Status: Ordered levothyroxine 75 mcg (0.075 mg) oral tablet = 75 mcg, By Mouth, Daily, # 90 each, 0 Refills, Maintenance, 08/08/23 10:10:00 EDT, Tablet, [facility], Partial fill upon patient request if the prescription is for a schedule II opioid drug., 175, cm, 08/08/23 4:31:00 EDT, Height Start Date: 08/08/23 Stop Date: 11/06/23 Status: Ordered methadone 10 mg oral tablet 4 tablets, By Mouth, Daily, 0 Refills, Maintenance, 07/29/23 20:50:00 EDT, Partial fill upon patient request if the prescription is for a schedule II opioid drug. Start Date: 07/29/23 Status: Ordered Methadone Liquid 25 mg, Solution, By Mouth, On Discharge, Routine, 08/07/23 21:00:00 EDT Start Date: 08/07/23 Stop Date: 08/08/23 Status: Completed valsartan 40 mg oral tablet 40 mg, Tablet, By Mouth, 08/08/23 9:00:00 EDT Start Date: 08/08/23 Stop Date: 08/08/23 Status: Completed valsartan 40 mg oral tablet 40 mg, By Mouth, 2 times a day, # 90 each, Refills 0, Tot. Refills 0, Maintenance, 08/08/23 10:10:00 EDT, Route to Pharmacy Electronically, [facility], Partial fill upon patient requestif the prescription is for a schedule II opioid yesenia... Start Date: 08/08/23 Stop Date: 11/06/23 Status: Ordered Results Orders for Microbiology Reports Name Date Blood Culture 07/29/23 Blood Culture #2 07/29/23 Blood Culture 07/29/23 Blood Culture #2 07/29/23 Microbiology Reports TEST:Blood Culture STATUS:Auth (Verified) BODY SITE: SOURCE:Blood COLLECTED DATE/TIME:07/29/23 10:58 PM Blood Culture SPECIMEN DESCRIPTION : BLOOD LAC SPECIAL REQUESTS : NONE CULTURE : NO GROWTH 5 DAYS. REPORT STATUS : FINAL 08/04/2023 TEST:Blood Culture, Second Order STATUS:Auth (Verified) BODY SITE: SOURCE:Blood COLLECTED DATE/TIME:07/29/23 10:58 PM Blood Culture, Second Order SPECIMEN DESCRIPTION : BLOOD RAC SPECIAL REQUESTS : NONE CULTURE : NO GROWTH 5 DAYS. REPORT STATUS : FINAL 08/04/2023 TEST:Blood Culture, Second Order STATUS:Auth (Verified) BODY SITE: SOURCE:Blood COLLECTED DATE/TIME:07/29/23 2:58 PM Blood Culture, Second Order SPECIMEN DESCRIPTION : BLOOD LAC SPECIAL REQUESTS : NONE CULTURE : NO GROWTH 5 DAYS. REPORT STATUS : FINAL 08/03/2023 TEST:Blood Culture STATUS:Auth (Verified) BODY SITE: SOURCE:Blood COLLECTED DATE/TIME:07/29/23 2:54 PM Blood Culture SPECIMEN DESCRIPTION : BLOOD NO SITE SPECIAL REQUESTS : NONE CULTURE : NO GROWTH 5 DAYS. REPORT STATUS : FINAL 08/03/2023 Radiology Reports (Most Recent Ten) * Exam Date Time Procedure Performing Provider Status 08/07/23 5:33 AM Chest 2 Views Frontal and Lat Nichelle Kimbrough; Auth (Verified) Notes: (Chest 2 Views Frontal and Lat) Reason For Exam: Postop RESULT: Chest 2 Views Frontal and Lat Chest 2 Views Frontal and Lat Reason: Postop; Clinical Question(s): Line Placement; Pneumothorax; Special Instructions: Patient may go unmonitored. Please keep film at back desk COMPARISON: Numerous priors including 07/31/2023. FINDINGS: LINES AND TUBES: Single lead left subclavian pacer wire is intact. EKG leads project over the chest. LUNGS AND PLEURA: Low lung volumes, LEFT greater than RIGHT pleural effusions. Adjacent airspace opacification including retrocardiac opacification. No pneumothorax. HEART, MEDIASTINUM AND DIONNA: Heart borders mostly obscured. Normal mediastinal and hilar contour. BONES AND SOFT TISSUES: No acute abnormality. IMPRESSION: No pneumothorax. Low lung volumes. LEFT greater than RIGHT pleural effusions with adjacent airspace opacification. WSN: [id number] Ordering Physician: Luis Chino Dictated By: Lucie Stevenson MD Dictated Date/Time: 08/07/23 9:01 am Reviewed By: Lucie Stevenson MD Signed By: Lucie Stevenson MD Signed Date/Time: 08/07/23 9:01 am Transcribed By: MIGUEL Transcribed Date/Time: 08/07/23 8:59 am * Exam Date Time Procedure Performing Provider Status 08/04/23 10:16 PM MRI Cardiac W+W/O Contrast Brie Osborne; Modified Notes: (MRI Cardiac W+W/O Contrast) Reason For Exam: Cardiomyopathy Suspected;Other: RESULT: MRI Cardiac W+W/O Contrast Examination: MRI Cardiac W+W/O Contrast. CLINICAL HISTORY:Reason: History of cardiomegaly and presented with cardiac arrest, left ventricular ejection fraction at 10-15%; minimal luminal irregularities and cardiac catheterization. Moderate diastolic dysfunction. The patient is planned for ICD implantation. Clinical Question(s): Cardiomyopathy. TECHNIQUE: Cardiac MR infiltrative disease/viability protocol on the newScale 1.5 Aisha scanner. Axial T2 dark blood. Short axis triple-IR T2. Multilevel cine FIESTA breathhold imaging performed in the short axis and 2-chamber, 3-chamber, and 4-chamber long axis orientations to evaluate cardiac function. T1 mapping pre and postcontrast and T2 mapping performed on 3 short axis sections. The patient received 30 cc Clariscan (gadoterate meglumine) IV. Dynamic enhancement imaging performed using arapid multilevel T1-weighted gradient echo sequence during contrast administration. Multiplanar late gadolinium enhancement phase sensitive inversion recovery T1 imaging performed after a 6-7 minute delay. Ventricular volumes based upon semiautomated contouring of cine short axis images performed by [employer] using [employer] software. Normal ranges obtained from the software. COMPARISON: CT chest without contrast 07/29/2023. Echocardiogram 08/04/2023. FINDINGS: Good image quality was obtained. LV: The left ventricular chamber size was severely dilated. There was moderately decreased global LV function. There was dyssynchronous contraction in the intraventricular septum. LV wall thickness was top normal to mildly thickened despite the dilation, resulting in a moderately increased myocardial mass. The LV wall measures up to 12 mm in thickness at end diastole, most evident in the septum but with little variation circumferentially. LV parameters and (normal ranges) [facility] 2003 SSFP Male/Age 20-65/Field 1.5: Absolute values: Myocardial mass: 179 (85-181) g. End-diastolic volume: 395 (101-236) mL. End-systolic volume: 254 (28-93) mL. Stroke Volume: 141 (66-150) mL. Ejection fraction: 36 (55-74) %. Cardiac output: 11 L/min. Normalized values based on provided weight 80.0 kg, height 175 cm: 1.97 m-sq body surface area: Myocardial mass index: 91 (46-84) g/m-sq. End-diastolic volume index: 200 (52-112) mL/m-sq. End-systolic volume index: 129 mL/m-sq. Stroke volume index: 72 mL/m-sq. Cardiac index: 5.6 (L/min)/m-sq. [place] T1 mapping based on the middle of 3 short axis slices reveals a mean value of 1105 ms (normal 962+/-25 ms), and appears mostly homogeneous. The postcontrast T1 value is 543 ms. With a hematocrit of 30%, this correlated with an increased ECV of 40.6% (normal 27+/-3%). Myocardial edema/T2 imaging reveals no focal abnormality. The global T2 value for the middle slice was 58 ms (2 parameter fit), and 40 ms for the 3 parameters fit. Dynamic perfusion imaging reveals no abnormality. Late gadolinium enhancement examination reveals no abnormality. RV: The RV chamber was mildly dilated. There was normal global wall motion in the right ventricle. RV parameters and (normal ranges): Absolute values: End-diastolic volume: 240 (110-243) mL. End-systolic volume: 111 (46-112) mL. Stroke Volume: 129 (60-136) mL. Ejection fraction: 54 (47-63) %. Cardiac output: 10 L/min. Normalized values: End-diastolic volume index: 122 (58-115) mL/m-sq. End-systolic volume index: 56 mL/m-sq. Stroke Volume index: 65 mL/m-sq. Cardiac index: 5.1 (L/min)/m-sq. Atria: The right atrium was mildly dilated. The left atrium was upper normal in size, but appears to be compressed over the spine due to the cardiomegaly. Valves: The aortic valve was unremarkable. The pulmonic valve was unremarkable. The mitral valve was unremarkable. The tricuspid valve was unremarkable. Extracardiac: The pericardium was normal. No pericardial effusion. The thoracic aorta was normal. Incidental Findings: Increased small left and trace right pleural effusions with increased consolidation in both lower lobes dependently, likely reflecting compressive atelectasis, although superimposed aspiration pneumonia is possible. IMPRESSION: Severely dilated left ventricle with moderately decreased global function, ejection fraction 36%. No evidence of perfusion abnormality or focal late gadolinium enhancement abnormality to suggest infarct. The LV wall was upper normal in thickness measuring 11-12 mm, but the LV was dilated and the LV wall is probably mildly thickened overall. [place] T1 mapping revealed an elevated mean value of 1105 ms, and an elevated extracellular volume estimate of 40.6%. These findings suggest global edema,likely due to global hypoxic ischemic injury in this clinical setting. Although it is not possible to exclude a component of the elevated extracellular volume being due to superimposed diffuse interstitial fibrosis or amyloidosis, there is no subendocardial pattern of late gadolinium enhancement orsignificant LGE heterogeneity to suggest their presence. Mild RV dilation. Interval increased small left and trace right pleural effusions with increased consolidation of theleft lower lobe. I have personally reviewed the images and I agree with this report. WSN: [id number] Ordering Physician: Umer Lawrence Dictated By: Guille Olsen DO Dictated Date/Time: 08/06/23 3:13 pm Reviewed By: Stefan Schwartz MD Signed By: Stefan Schwartz MD Signed Date/Time: 08/06/23 3:18 pm Transcribed By: MIGUEL Transcribed Date/Time: 08/06/23 7:47 am ADDENDUM: MRI Cardiac W+W/O Contrast The impression should also mention the distinctness contraction of the interventricular septum. This may reflect conduction abnormality. WSN: [id number] Ordering Physician: Umer Lawrence Dictated By: Stefan Schwartz MD Dictated Date/Time: 08/06/23 5:42 pm Reviewed By: Stefan Schwartz MD Signed By: Setfan Schwartz MD Signed Date/Time: 08/06/23 5:42 pm Transcribed By: MIGUEL Transcribed Date/Time: 08/06/23 5:42 pm * Exam Date Time Procedure Performing Provider Status 08/03/23 12:41 PM Ankle Min 3 Views Left Janeth Ordonez; Sunita (Verified) Notes: (Ankle Min 3 Views Left) Reason For Exam: Pain RESULT: Ankle Min 3 Views Left Ankle Min 3 Views Left Reason: Pain; Clinical Question(s): Fracture COMPARISON: None. FINDINGS: Deformity of the distal fibula and superior calcaneus likely related to remote trauma. No definite acute fracture or malalignment. IMPRESSION: No acute osseous injury identified. WSN: [id number] Ordering Physician: Shawna Renae Dictated By: Moises Quigely MD Dictated Date/Time: 08/03/23 1:04 pm Reviewed By: Moises Quigley MD Signed By: Moises Quigley MD Signed Date/Time: 08/03/23 1:04 pm Transcribed By: MIGUEL Transcribed Date/Time: 08/03/23 1:03 pm * Exam Date Time Procedure Performing Provider Status 07/31/23 5:53 AM Chest Portable Maricarmen Hatch (Verified) Notes: (Chest Portable) Reason For Exam: Tube Placement RESULT: Chest Portable Chest Portable upright at 4:52 AM Reason: Tube Placement COMPARISON: 07/30/2023 and multiple studies on 07/29/2023 FINDINGS: LINES AND TUBES: Interval removal of the inferior approach [place]-Emilia catheter. Endotracheal tube remains in satisfactory position, the tip approximately 4 cm above nancy. Enteric tube is seen extending into the stomach, the tip not included on the exam but likely at the level of the gastric body. LUNGS AND PLEURA: There has been complete clearing of the lungs. No vascular congestion. No pleural effusion. No pneumothorax. HEART, MEDIASTINUM AND DIONNA: Heart is normal in size. Normal mediastinal and hilar contour. BONES AND SOFT TISSUES: No acute abnormality. IMPRESSION: 1. Satisfactory positions of the endotracheal tube and enteric tube. Interval removal of [place]-Emilia catheter. 2. No acute cardiopulmonary pathology. WSN: [id number] Ordering Physician: Abimael Marquez Dictated By: Nathan Boyd MD Dictated Date/Time: 07/31/23 9:15 am Reviewed By: Nathan Boyd MD Signed By: Nathan Boyd MD Signed Date/Time: 07/31/23 9:15 am Transcribed By: MIGUEL Transcribed Date/Time: 07/31/23 9:11 am * Exam Date Time Procedure Performing Provider Status 07/30/23 11:02 AM Chest Portable Eduar Keita (Verified) Notes: (Chest Portable) Reason For Exam: Line Placement RESULT: Chest Portable Chest Portable Reason: Line Placement COMPARISON: 07/29/2023. FINDINGS: LINES AND TUBES: Endotracheal tube terminates 3.2 cm above the nancy. Lower extremity approach [place]-Emilia catheter terminates in the region of the right hilum possibly inthe lower lobe artery. Enteric tube terminates outside the field of view, below the level of the GE junction. LUNGS AND PLEURA: Interval improvement in aeration with resolution of previously seen hazy opacification. No pleural effusion. No pneumothorax. HEART, MEDIASTINUM AND DIONNA: Heart is normal in size. Bilateral hilar prominence could be due to low lung volumes and/or central vascular congestion. BONES AND SOFT TISSUES: No acute abnormality. IMPRESSION: Interval resolution of previously seen hazy lung opacification, which may represent resolved edema. WSN: [id number] Ordering Physician: Chivo Reid Dictated By: Ousmane Roldan MD Dictated Date/Time: 07/30/23 11:09 a Reviewed By: Ousmane Roldan MD Signed By: Ousmane Roldan MD Signed Date/Time: 07/30/23 11:09 am Transcribed By: MIGUEL Transcribed Date/Time: 07/30/23 11:07 am * Exam Date Time Procedure Performing Provider Status 07/29/23 8:43 PM Chest Portable Rainer Mustafa; Sunita (Ve rified) Notes: (Chest Portable) Reason For Exam: Line Placement RESULT: Chest Portable Chest Portable Reason: Line Placement; Clinical Question(s): Other:; IABP Line Placement COMPARISON: 07/29/2023 2:49 PM FINDINGS: LINES AND TUBES: Endotracheal tube tip 3.2 cm above the nancy. Enteric tube extends below the diaphragm, tip collimated from view. [place]-Emilia catheter RIGHT main pulmonary artery. LUNGS AND PLEURA: Hazy bilateral lung opacification, RIGHT greater than LEFT, without interval change. No pleural effusion. No pneumothorax. HEART, MEDIASTINUM AND DIONNA: Heart is normal in size. Normal mediastinal and hilar contour. BONES AND SOFT TISSUES: No acute abnormality. IMPRESSION: Lines and tubes as described. No interval change in appearance of the lungs. WSN: [id number] Ordering Physician: Peter Walker Dictated By: Lucie Stevenson MD Dictated Date/Time: 07/29/23 9:20 pm Reviewed By: Lucie Stevenson MD Signed By: Lucie Stevenson MD Signed Date/Time: 07/29/23 9:20 pm Transcribed By: MIGUEL Transcribed Date/Time: 07/29/23 9:12 pm * Exam Date Time Procedure Performing Provider Status 07/29/23 5:[address] Abdomen and Pelvi s W/O Contrast Cassi Demarco; Sunita (Verified) Notes: (CT Abdomen and Pelvis W/O Contrast) Reason For Exam: Pain RESULT: CT Abdomen and Pelvis W/O Contrast CT Chest W/O Contrast, CT Abdomen and Pelvis W/O Contrast INDICATION: Reason: Other:; foreign body; Clinical Question(s): Other: TECHNIQUE: Helical CT scan of the chest, abdomen, and pelvis without IV contrast, formatted in 3 planes. This study was performed oral contrast. Weight- based protocol was performed using automatic exposure control. CTDIvol Body: 10.90 mGy, DLP Body: 808 mGy*cm. COMPARISON: None. FINDINGS: Flyer Maker view findings, lines and tubes: None. Trachea and airways: Patent without evidence of tracheal or endobronchial lesion. Lungs and pleura: Dependent consolidation in both lungs. Question aspiration. No effusion or pneumothorax. Mediastinum and dionna: No mass or hematoma. No mediastinal or hilar lymphadenopathy. No esophageal abnormality. Heart: Heart is normal in size. No pericardial effusion. Aorta: No aortic aneurysm. Pulmonary arteries: Normal caliber. Chest wall soft tissues: No acute abnormality. Diaphragm: Intact. Liver: Normal in attenuation and morphology. No suspicious lesion. Gallbladder: No CT evidence of gallbladder pathology. Bile ducts: No biliary ductal dilation. Spleen: Normal in size. Pancreas: No suspicious lesion or ductal dilatation. Adrenal glands: No nodule. Kidneys and ureters: No hydronephrosis, stone, or suspicious lesion. Bladder: Ochoa catheter seen within the bladder. Reproductive organs: Unremarkable. Stomach, small bowel, and large bowel: Normal caliber stomach and bowel loops. No surrounding inflammatory changes. Appendix: No evidence of acute appendicitis. Peritoneum and retroperitoneum: No ascites or pneumoperitoneum. No omental or mesenteric lesions. Lymph nodes: No enlarged lymph nodes. Blood vessels: No vascular calcifications or aneurysm. Abdominal and pelvic wall soft tissues: No acute abnormality. Bones: Broad disc bulging at L3-L4 and L4-L5. Some fragmentation noted in the anterior aspect of the L4 vertebral body most likely chronic. Somewhat irregular appearance of the L4-L5 disc level. IMPRESSION: Most likely chronic findings at the L3-L4 and L4-5 disc levels. However, acute process is not entirely excluded. Infection/discitis not excluded. If there is concern for infection, MRI is suggested. Considerable consolidation in the right greater than left lower lobes. Findings suggest aspiration or pneumonia. No other acute abnormality appreciated. WSN: [id number] Ordering Physician: Devorah Leung Dictated By: Andre Cordero MD Dictated Date/Time: 07/29/23 6:23 pm Reviewed By: Andre Cordero MD Signed By: Andre Cordero MD Signed Date/Time: 07/29/23 6:23 pm Transcribed By: MIGUEL Transcribed Date/Time: 07/29/23 5:43 pm * Exam Date Time Procedure Performing Provider Status 07/29/23 5:[address] Chest W/O Contrast Cassi Demarco; Sunita (Verified) Notes: (CT Chest W/O Contrast) Reason For Exam: foreign body;Other: RESULT: CT Chest W/O Contrast CT Chest W/O Contrast, CT Abdomen and Pelvis W/O Contrast INDICATION: Reason: Other:; foreign body; Clinical Question(s): Other: TECHNIQUE: Helical CT scan of the chest, abdomen, and pelvis without IV contrast, formatted in 3 planes. This study was performed oral contrast. Weight- based protocol was performed using automatic exposure control. CTDIvol Body: 10.90 mGy, DLP Body: 808 mGy*cm. COMPARISON: None. FINDINGS: Flyer Maker view findings, lines and tubes: None. Trachea and airways: Patent without evidence of tracheal or endobronchial lesion. Lungs and pleura: Dependent consolidation in both lungs. Question aspiration. No effusion or pneumothorax. Mediastinum and dionna: No mass or hematoma. No mediastinal or hilar lymphadenopathy. No esophageal abnormality. Heart: Heart is normal in size. No pericardial effusion. Aorta: No aortic aneurysm. Pulmonary arteries: Normal caliber. Chest wall soft tissues: No acute abnormality. Diaphragm: Intact. Liver: Normal in attenuation and morphology. No suspicious lesion. Gallbladder: No CT evidence of gallbladder pathology. Bile ducts: No biliary ductal dilation. Spleen: Normal in size. Pancreas: No suspicious lesion or ductal dilatation. Adrenal glands: No nodule. Kidneys and ureters: No hydronephrosis, stone, or suspicious lesion. Bladder: Ochoa catheter seen within the bladder. Reproductive organs: Unremarkable. Stomach, small bowel, and large bowel: Normal caliber stomach and bowel loops. No surrounding inflammatory changes. Appendix: No evidence of acute appendicitis. Peritoneum and retroperitoneum: No ascites or pneumoperitoneum. No omental or mesenteric lesions. Lymph nodes: No enlarged lymph nodes. Blood vessels: No vascular calcifications or aneurysm. Abdominal and pelvic wall soft tissues: No acute abnormality. Bones: Broad disc bulging at L3-L4 and L4-L5. Some fragmentation noted in the anterior aspect of the L4 vertebral body most likely chronic. Somewhat irregular appearance of the L4-L5 disc level. IMPRESSION: Most likely chronic findings at the L3-L4 and L4-5 disc levels. However, acute process is not entirely excluded. Infection/discitis not excluded. If there is concern for infection, MRI is suggested. Considerable consolidation in the right greater than left lower lobes. Findings suggest aspiration or pneumonia. No other acute abnormality appreciated. WSN: [id number] Ordering Physician: Devorah Leung Dictated By: Andre Cordero MD Dictated Date/Time: 07/29/23 6:23 pm Reviewed By: Ander Cordero MD Signed By: Andre Cordero MD Signed Date/Time: 07/29/23 6:23 pm Transcribed By: MIGUEL Transcribed Date/Time: 07/29/23 5:43 pm * Exam Date Time Procedure Performing Provider Status 07/29/23 5:[address] Head/Brain W/O Contrast Berkley Demarco (Verified) Notes: (CT Head/Brain W/O Contrast) Reason For Exam: Trauma RESULT: CT Head/Brain W/O Contrast CT Head/Brain W/O Contrast INDICATION: Reason: Trauma; Clinical Question(s): Hematoma; Order Comment: TECHNIQUE: Noncontrast head CT using axial technique and reconstructed in axial and coronal planes.Iterative reconstruction techniques are used to optimize dose and image quality. CTDIvol Head: 45.80 mGy, DLP Head: 773 mGy*cm. COMPARISON: None. FINDINGS: Flyer Maker view findings, lines and tubes: None. BRAIN AND EXTRA-AXIAL SPACES: No parenchymal hemorrhage, midline shift, or mass effect. Marques-white matter differentiation is wellpreserved. No acute infarct. Ventricles, sulci, and basilar cisterns are normal. No white matter lesions. No subarachnoid hemorrhage. No subdural or epidural collection. CALVARIUM, SKULL BASE, AND SOFT TISSUES: No fractures or suspicious bony lesions. The paranasal sinuses and mastoid air cells are clear. Visualized orbits and globes are intact. The extracranial soft tissues are unremarkable. IMPRESSION: No acute intracranial pathology. WSN: [id number] Ordering Physician: Devorah Leung Dictated By: Andre Cordero MD Dictated Date/Time: 07/29/23 5:43 pm Reviewed By: Andre Cordero MD Signed By: Andre Cordero MD Signed Date/Time: 07/29/23 5:43 pm Transcribed By: MIGUEL Transcribed Date/Time: 07/29/23 5:42 pm * Exam Date Time Procedure Performing Provider Status 07/29/23 2:58 PM Chest Portable Adelaide Álvarez (Verified) Notes: (Chest Portable) Reason For Exam: Shortness of Breath RESULT: Chest Portable Chest Portable, Chest Portable CLINICAL INDICATION: Reason: Shortness of Breath; Clinical Question(s): Pneumonia COMPARISON: None available. FINDINGS: 2 radiographs were obtained. The 1st radiograph (2:26 PM) demonstrates an ET tube with tip 3.3 cm above the nancy. Enteric tubeextends into the stomach, sidehole in the gastric lumen, tip off the film. The cardiac silhouette is within normal limits. Hilar and mediastinal contours are normal. Hazy bilateral airspace disease is seen, right greater than left. There is no pleural effusion, pneumothorax, or evidence of CHF. No acute osseous abnormality is noted. The 2nd radiograph (2:49 PM) demonstrates no change. IMPRESSION: ET tube and enteric tube in appropriate position. Diffuse hazy bilateral airspace disease, right greater than left. WSN: [id number] Ordering Physician: Abbie Wright Dictated By: Kelli Robertson MD Dictated Date/Time: 07/29/23 3:05 pm Reviewed By: Kelli Robertson MD Signed By: Kelli Robertson MD Signed Date/Time: 07/29/23 3:05 pm Transcribed By: MIGUEL Transcribed Date/Time: 07/29/23 3:00 pm Vital Signs Most recent to oldest [Reference Range]: 1 2 3 4 Height 175 cm (08/08/23 3:52 PM) 175 cm (08/08/23 10:15 AM) 175 cm (08/08/23 4:31 AM) Weight 81 kg (08/08/23 4:31 AM) 80.5 kg (08/06/23 4:00 AM) 81.1 kg (08/05/23 1:56 PM) Oxygen Saturation [94-100 %] 96 % (08/08/23 3:52 PM) 96 % (08/08/23 10:15 AM) 94 % (08/08/23 4:28 AM) Pulse Rate [55-90 bpm] 66 bpm (08/08/23 3:52 PM) 83 bpm (08/08/23 10:15 AM) 73 bpm (08/08/23 9:02 AM) Body Mass Index [18.5-24.99 kg/m2] 26.45 kg/m2 *H* (08/08/23 4:31 AM) 26.48 kg/m2 *H* (08/05/23 1:56 PM) Blood Pressure [90-138/55-84 mm Hg] 119/67mm Hg (08/08/23 3:52 PM) 102/59mm Hg (08/08/23 10:15 AM) 100/66mm Hg (08/08/23 9:02 AM) 100/66mm Hg (08/08/23 9:02 AM) Respiratory Rate [16-30 br/min] 18 br/min (08/08/23 5:56 PM) 18 br/min (08/08/23 4:56 PM) 18 br/min (08/08/23 3:52 PM) Temperature [96.8-100.4 DegF] 98.2 DegF (08/08/23 3:52 PM) 98 DegF (08/08/23 10:15 AM) 98.6 DegF (08/08/23 4:28 AM) Liters per Minute 3 L/min (08/07/23 6:22 AM) 3 L/min (08/05/23 4:36 PM) 3 L/min (08/05/23 10:45 AM) Mode of Delivery (Oxygen) Room air (08/08/23 3:52 PM) Room air (08/08/23 10:15 AM) Nasal cannula (08/08/23 4:28 AM) Blood pressure sites Arm, right (08/08/23 3:52 PM) Arm, right (08/08/23 10:15 AM) Arm, right (08/08/23 4:28 AM) Temperature Route Oral (08/08/23 3:52 PM) Oral (08/08/23 10:15 AM) Oral (08/08/23 4:28 AM) Dry Weight 68.3 kg (07/29/23 3:19 PM) 68 kg (07/29/23 3:19 PM) Weight Obtained Via Bed scale (08/08/23 4:31 AM) Bed scale (08/06/23 4:00 AM) Bed scale (08/05/23 1:56 PM) Note * Nevin Cuello RN: PERFORM Event Display: Discharge/Transfer Note Hospital Authored Date: [id number] Nursing Discharge Note Entered On: 08/08/2023 18:53 EDT Performed On: 08/08/2023 18:52 EDT by Nevin Cuello RN Nursing Discharge Note 2 Discharge Time : 08/08/2023 18:52 EDT Discharge Level of Care at Discharge : Home/[facility] Patient Left Unit Via : Wheelchair Patient Accompanied Off Unit with : Responsible adult DC Instructions Provided & Signed by Pt : Yes Patient Understands D/C Instructions : Yes Patient Instructions Discharge Signed : Yes Did Pt have Specialty Bed or Wound Vac : No Cuate SIGALA, Nevin - 08/08/2023 18:52 EDT * Rashad Eason MD: PERFORM, MODIFY, MODIFY, MODIFY, MODIFY, MODIFY Event Display: Discharge/Transfer Note Hospital Authored Date: [id number] Patient: ??MISHRALARON FIERRO ? Age:??48 Years?Sex:??Male?:??1975?? Patient Information Discharge Location: Primary Care Physician: Not on Staff, PCP Admit Date/Time: 07/29/23 19:42 ??Discharge date: 08/08/23 Discharge Disposition Discharge Disposition: [facility] Discharge Diagnosis ?? Cardiac arrest (I46.9) Ventricular tachycardia (I47.20) Prolonged QT interval (R94.31) Pneumonia (J18.9) Left ankle pain (M25.572) Opioid use disorder (F11.90) Back pain (M54.9) ?? _ Discharge Medications amiODARONE (amiodarone 200 mg oral tablet)?400?Milligram?By Mouth?Daily?for 90?Days Amoxicillin-Clavulanate (Augmentin 875 mg-125 mg oral tablet)?1?tab(s)?By Mouth?Every 12 hours?for 5?Days Carvedilol (carvedilol 6.25 mg oral tablet)?6.25?Milligram?By Mouth?2 times a day?for 90?Days Furosemide (Lasix 20 mg oral tablet)?20?Milligram?1?tablet?By Mouth?Daily?for 90?Days Levothyroxine (levothyroxine 75 mcg (0.075 mg) oral tablet)?75?Microgram?By Mouth?Daily?for 90?Days Methadone (methadone 10 mg oral tablet)?4 tablets?By Mouth?Daily Valsartan (valsartan 40 mg oral tablet)?40?Milligram?By Mouth?2 times a day?for 90?Days ? Medications Started amiODARONE (amiodarone 200 mg oral tablet)?400?Milligram?By Mouth?Daily?for 90?Days Amoxicillin-Clavulanate (Augmentin 875 mg-125 mg oral tablet)?1?tab(s)?By Mouth?Every 12 hours?for 5?Days Carvedilol (carvedilol 6.25 mg oral tablet)?6.25?Milligram?By Mouth?2 times a day?for 90?Days Furosemide (Lasix 20 mg oral tablet)?20?Milligram?1?tablet?By Mouth?Daily?for 90?Days Levothyroxine (levothyroxine 75 mcg (0.075 mg) oral tablet)?75?Microgram?By Mouth?Daily?for 90?Days Valsartan (valsartan 40 mg oral tablet)?40?Milligram?By Mouth?2 times a day?for 90?Days Medications Discontinued None Doses Changed ?? Methadone (methadone 10 mg oral tablet)?4 tablets?By Mouth?Daily PCP Follow-Up/Heads-Up Seen in the hospital following cardiac arrest with concerns for VTach and VT storm. ROSC achieved through resuscitation. Concern that this event was related to prolonged QTC. Laron is now s/p ICD placement. He was treated for concerns of aspiration pneumonia with Zosyn then transitioned to Augmentin. ?? Please follow-up on CBC and CMP within one week for trending of white count, to follow up on anemia, and to ensure no hyperkalemia develops. Future Appointments Friday 9:30 AM EST ?? Where: [facility] [address] [place] [id number]- Status: Pending Friday 9:15 AM EST ?? With: Olga Rajan NP Where: [facility] [address] [place] [id number]- Status: Pending Hospital Course Laron is a 48-year-old man currently in custody at the [facility] retirement with PMH significant for cocaine and opiate use disorder on methadone 30 mg, cardiomegaly, GERD who presented to [facility] s/p cardiac arrest. Patient was found down and unresponsive in cell after a cell search was announced. It is unclear if he had ingested toxic substance prior to his cardiac arrest. He was found to be pulseless VT requiring multiple shocks. Additional etiology of his cardiac arrest may have been prolonged QTc in the setting of methadone therapy. He was coded by EMS and he received a total of 6 shocks and 5 rounds of epi with a total code time of around 30 minutes and a bolus of 300 mg of Amiodarone and ROSC was achieved. After arrival to the hospital, patient once again went into persistent VT and was defibrillated. Arrival to the CCU, cardiac catheterization without any significant issues of the coronary arteries. EKG showing sinus tachycardia at 113 BPM with QTC 526 with no ischemic changes. Echocardiogram on 07/30 revealed LVEF to be 10-15% with repeat echo showing LVEF of 20 to 25%. Given V. tach arrest, VT storm, patient was evaluated by electrophysiology who placed an ICD. Patient is now status post ICD. Hospital course was also pertinent??for aspiration pneumonia. Patient was managed with Zosyn and Augmentin with resolution of fevers. On repeat chest x- ray for follow-up after ICD placement, patient was noted to have pleural effusion with left pleural effusion greater than right. To cover for any un derlying new or residual pneumonia, will continue Augmentin for 5 additional days. Follow-up echo to evaluate for pericardial effusion following ICD placement: The LV systolic function is moderately to severely reduced with regional wall motion variation; there is no significant pericardial effusion. Patient required 2 to 3 L nasal cannula for saturations in low 90s, however this has improved andpatient noted to be saturating well on room air. EKG showed improved QTc, and patient restarted on methadone. Now being discharged on 40 mg methadone daily per recommendation of addiction medicine. CT scan with abnormality at the L3,4,5 vertebral level, appeared most likely to be chronic changes. Throughout hospital course no overt concern for osteomyelitis or spinal epidural abscess. ? VT Storm Cardiogenic Shock Prolonged QTC Left ventricular ejection fraction (20-25 %) Status post ICD placement Bilateral pleural effusions ?? Recommendations: - Augmentin 875mg-125mg - 1 tablet every 12 hours for 5 days - Furosemide 20mg - 1 tablet daily - Amiodarone 2 tablets (400mg total) daily - Carvedilol 6.25mg - 1 tablet twice a day - Valsartan 40mg - 1 tablet twice daily ? L3-L4, L4-L5 Abnormality Recommendations: - Tylenol 625mg and Ibuprofen 400mg as needed for pain - Monitor for worsening back pain, persistent fevers ?? Left ankle pain XR ankle ordered shows deformity of the distal fibula and superior calcaneus likely related to remote trauma. No definite acute fracture or malalignment. Recommendations: ??- Supportive management with ice packs, EVELYNE wrap, elevation ??- Ibuprofen 400mg PRN for mild pain ? Substance use disorder Recommendations: - Methadone 4 tablets (40mg total) daily ?? Hypothyroidism Recommendations: - Levothyroxine 75mcg - 1 tablet daily ?? Objective . Physical Exam Constitutional: Alert, in no distress. Mental Status: Oriented to person, place and time. Head: Normocephalic. Neck: Supple, Full range of motion. Respiratory: Clear to auscultation. No wheezing, rales or rhonchi. Cardiovascular: S1 S2 regular. No murmurs, rubs or gallops. ICD apparent under the skin. No surrounding erythema, no drainage or blood seen. Gastrointestinal: Abdomen soft, non-tender, non-distended. Neurologic: Cranial nerves II-XII grossly intact. No??gross neurological deficits. Moves all extremities spontaneously. Musculoskeletal: No gross deformities. Normal range of motion. Tenderness to the midline lumbar back on palpation Psychiatric:??Appropriate mood and affect Consultants Dr. Peter Willis Pending Results Add On Lab Order ordered on 07/30/2023 BUN ordered on 07/30/2023 Basic Metabolic Panel ordered on 07/29/2023 Blood Gas Arterial ordered on 07/29/2023 CBC ordered on 07/29/2023 Calcium Level ordered on 07/30/2023 Creatinine ordered on 07/30/2023 Glucose Level ordered on 07/30/2023 Hepatic Function Panel ordered on 07/29/2023 Hepatic Function Panel ordered on 07/30/2023 Magnesium Level ordered on 07/30/2023 Phosphorus Level ordered on 07/30/2023 Follow-Up Appointments Added Follow Up ?Time Frame ?Comments Not on Staff, PCP?Within one week?Please follow-up with your primary care provider for follow-up laboratory tests and to discuss your hospitalization. Patient Instructions Diagnosis/Test Results You were seen in the hospital after what is known as a cardiac arrest, meaning your heart was not pumping in a way that would give you a pulse. You were given electrical treatment via defibrillation and medications to help your heart start??working more normally again.??You??had a procedure that placed a device under the skin on the left side of your chest. This device??has wires that go to your heart that can help??prevent your heart from??having the same type of arrhythmia (malfunctioning) that??made??your??heart stop from squeezing properly. ?In the hospital, you were also treated for pneumonia with antibiotics. It appears that you may have some pneumonia that will require more antibiotic treatment. We have sent a prescription for this antibiotic. ?? You had an ultrasound of your heart to assess its squeezing. It appears that the squeezing of your heart is severely reduced from a healthy level. We have started medications that help with the treatment of reduced heart squeezing. CT scans showed what appears to be correction changes to your spine in your lower back. With your symptoms here in the hospital, it seems that it is less likely to be an infection. If you do start to have worsening back pain, difficulty moving your legs, numbness or tingling in your legs, please seek medical care or come back to the hospital. ? What to do/When to return If you notice any fevers, redness, swelling, or pus coming from your chest over your device, any new or worsening chest pain, difficulty breathing, or any other concerning symptoms, please do not hesitate to come back to the hospital or seek medical care. ?? Please take your medications as prescribed. ?? Please follow-up with your primary care provider within one week??for follow-up laboratory tests and to discuss your hospitalization. ?? Please follow-up with a cardiology provider as scheduled. ?? Medications ?? - Augmentin 875mg-125mg - 1 tablet every 12 hours for 5 days - Furosemide 20mg - 1 tablet daily?? - Amiodarone 2 tablets (400mg total) daily - Carvedilol 6.25mg - 1 tablet twice a day - Valsartan 40mg - 1 tablet twice daily - Methadone??4 tablets (40mg total) daily - Levothyroxine 75mcg - 1 tablet daily Post Discharge Care Activity: ??Do not raise shoulder above 90 degrees ?? Code Status: ??Full Resuscitation ?? Condition: ??Fair ?? Prognosis: ??Fair ?? Home Health Face to Face Not indicated Results Discharge Labs BACTERIOLOGY MRSA PCR Result Positive, MRSA target DNA detected. ()?? 07/30/2023 12:13 S Aureus ??PCR Result Positive, SA target DNA detected. ()?? 07/30/2023 12:13 ?? BLOOD BANK Blood Type O Positive ()?? 08/05/2023 14:07 Antibody Screen Positive ()?? 08/05/2023 14:07 Antibody Identification 1 Anti-K ()?? 08/05/2023 19:06 ? BLOOD COUNT & DIFF WBC 12.9 k/mm3 (High)?? 08/08/2023 04:50 RBC 3.76 m/mm3 (Low)?? 08/08/2023 04:50 Hgb 11.4 Gm/dL (Low)?? 08/08/2023 04:50 Hct 36.8 % (Low)?? 08/08/2023 04:50 MCV 97.9 femtoliters (High)?? 08/08/2023 04:50 MCH 30.3 pg ()?? 08/08/2023 04:50 MCHC 31.0 g/dL (Low)?? 08/08/2023 04:50 Platelet Count 478 k/mm3 (High)?? 08/08/2023 04:50 RDW-SD 47.8 femtoliters (High)?? 08/08/2023 04:50 MPV 9.7 femtoliters ()?? 08/08/2023 04:50 Nucleated RBC (Automated) 0.0 #/100 WBC'S ()?? 08/08/2023 04:50 Abs. NRBC 0.0 k/mm3 ()?? 08/08/2023 04:50 Abs. Neut 8.7 k/mm3 (High)?? 08/08/2023 04:50 Abs. Lymph 2.0 k/mm3 ()?? 08/08/2023 04:50 Abs. [place] 0.9 k/mm3 ()?? 08/08/2023 04:50 Abs. Eo 1.2 k/mm3 (High)?? 08/08/2023 04:50 Abs. Baso 0.1 k/mm3 ()?? 08/08/2023 04:50 Neut % 67.1 % ()?? 08/08/2023 04:50 Lymph % 15.6 % ()?? 08/08/2023 04:50 [place] % 7.1 % ()?? 08/08/2023 04:50 Eos % 9.0 % (High)?? 08/08/2023 04:50 Baso % 0.5 % ()?? 08/08/2023 04:50 Myelocytes % 3.5 % ()?? 07/29/2023 14:40 Metamyelocyte % 3.5 % (High)?? 07/29/2023 14:40 Band % 3.5 % ()?? 07/29/2023 14:40 RBC Morphology MODERATE ()?? 07/29/2023 14:40 Platelet Estimate ADEQUATE ()?? 07/29/2023 14:40 Hemoglobin (POC) POC Cartridge 10.5 Gm/dL (Low)?? 07/30/2023 03:51 Hematocrit (POC) POC Cartridge 31 % (Low)?? 07/30/2023 03:51 Imm Gran 0.7 % ()?? 08/08/2023 04:50 Abs. Imm Gran 0.1 k/mm3 ()?? 08/08/2023 04:50 ? BLOOD GAS pH (POC) POC Cartridge 7.37 ()?? 07/30/2023 03:51 pCO2 (POC) POC Cartridge 35.8 mm Hg (Low)?? 07/30/2023 03:51 pO2 (POC) POC Cartridge 150 mm Hg (High)?? 07/30/2023 03:51 Estimated Bicarbonate (POC) POC Cart 20.7 mmol/L (Low)?? 07/30/2023 03:51 % O2 Sat Arterial (POC) POC Cartridge 99 % ()?? 07/30/2023 03:51 pH Venous (POC) POC Cartridge 7.26 (Low)?? 07/30/2023 01:24 pCO2 Venous (POC) POC Cartridge 56.6 mm Hg (High)?? 07/30/2023 01:24 pO2 Venous (POC) POC Cartridge 36 mm Hg ()?? 07/30/2023 01:24 Est Bicarbonate (POC) POC Cartridge 25.4 mmol/L ()?? 07/30/2023 01:24 % O2 Sat Venous (POC) POC Cartridge 59 ()?? 07/30/2023 01:24 Base Excess (POC) POC Cartridge NEGATIVE 5 ()?? 07/30/2023 03:51 pH 7.32 (Low)?? 07/29/2023 16:21 pCO2 52 mm Hg (High)?? 07/29/2023 16:21 pO2 78 mm Hg (Low)?? 07/29/2023 16:21 Bicarbonate, Estimated 26 mmol/L ()?? 07/29/2023 16:21 Specimen Type - Blood Gas ARTERIAL ()?? 07/30/2023 03:51 pH, Venous 6.87 (Low)?? 07/29/2023 14:40 Percent O2 (FIO2) 100 ()?? 07/29/2023 16:21 ?? CARDIAC High Sensitivity Troponin (HSTnT) HEMOLYZED ng/L ()?? 07/29/2023 16:49 ? CHEM GENERAL Sodium 134 mmol/L ()?? 08/08/2023 04:50 Potassium 5.1 mmol/L ()?? 08/08/2023 04:50 Chloride 96 mmol/L (Low)?? 08/08/2023 04:50 Bicarbonate Level 30 mmol/L (High)?? 08/08/2023 04:50 Anion Gap 8 ()?? 08/08/2023 04:50 Sodium (POC) POC Cartridge 145 mmol/L ()?? 07/30/2023 03:51 Potassium (POC) POC Cartridge 3.8 mmol/L ()?? 07/30/2023 03:51 Glucose Level 108 mg/dL (High)?? 08/08/2023 04:50 Glucose (POC) POC Cartridge 110 (High)?? 07/30/2023 03:51 Glucose, POC 107 mg/dL (High)?? 08/04/2023 22:49 Hemoglobin A1C (Monitoring) 5.4 % ()?? 08/05/2023 05:58 BUN 15 mg/dL ()?? 08/08/2023 04:50 Creatinine-Blood 0.9 mg/dL ()?? 08/08/2023 04:50 Estimated GFR Creatinine 103 ML/MIN/1.73 M2 ()?? 08/08/2023 04:50 Calcium 9.2 mg/dL ()?? 08/08/2023 04:50 Ionized Calcium (POC) POC Cartridge 1.08 mmol/L (Low)?? 07/30/2023 03:51 Phosphorus 3.5 mg/dL ()?? 08/08/2023 04:50 Magnesium 1.8 mg/dL ()?? 08/08/2023 04:50 Protein, Total 4.8 Gm/dL (Low)?? 08/04/2023 01:21 Albumin 2.8 Gm/dL (Low)?? 08/04/2023 01:21 AG Ratio 1.4 ()?? 08/04/2023 01:21 Alkaline Phosphatase 74 units/L ()?? 08/04/2023 01:21 Lipase 31 units/L ()?? 07/29/2023 14:40 AST (SGOT) 35 units/L ()?? 08/04/2023 01:21 ALT (SGPT) 54 units/L (High)?? 08/04/2023 01:21 Bilirubin, Total 0.3 mg/dL ()?? 08/04/2023 01:21 Bilirubin, Direct 0.3 mg/dL ()?? 07/30/2023 09:13 Bilirubin, Indirect 0.3 mg/dL ()?? 07/30/2023 09:13 Lactate 0.9 mmol/L ()?? 08/01/2023 01:29 ? COAG INR 1.1 ()?? 07/29/2023 22:10 Protime (PT) 11.4 seconds ()?? 07/29/2023 22:10 APTT 25.6 seconds ()?? 07/29/2023 22:10 ? ENDOCRINE/TUMOR MARKER TSH 11.10 uIU/mL (High)?? 07/29/2023 14:40 Free T4 0.75 ng/dL ()?? 07/29/2023 14:40 ?? HEME OTHER Hold Lavender Top SPECIMEN DISCARDED AFTER 24 HOURS. ()?? 08/02/2023 19:41 ? PARASITOLOGY Parasitic Examination Final report ()?? 07/30/2023 11:15 Parasitic Exam Specimen Source STOOL ()?? 07/30/2023 11:15 OP Result 1 Comment ()?? 07/30/2023 11:15 ? STOOL STUDIES WBC Stool NONE SEEN /HPF ()?? 07/30/2023 11:15 Calprotectin Fecal 1710 (High)?? 07/30/2023 11:15 GI PCR, Campylobacter NEGATIVE ()?? 07/30/2023 11:15 GI PCR, Plesiomonas shigelloides NEGATIVE ()?? 07/30/2023 11:15 GI PCR, Salmonella NEGATIVE ()?? 07/30/2023 11:15 GI PCR, Vibrio NEGATIVE ()?? 07/30/2023 11:15 GI PCR, Vibrio cholerae NEGATIVE ()?? 07/30/2023 11:15 GI PCR, Yersinia enterocolitica NEGATIVE ()?? 07/30/2023 11:15 GI PCR, Enteroaggregative E coli NEGATIVE ()?? 07/30/2023 11:15 GI PCR, Enteropathogenic E coli NEGATIVE ()?? 07/30/2023 11:15 GI PCR, Enterotoxigenic E coli NEGATIVE ()?? 07/30/2023 11:15 GI PCR, Ageqb-ayvqb-lxutkmfzs E coli NEGATIVE ()?? 07/30/2023 11:15 GI PCR, Shigella/Enteroinvasive E coli NEGATIVE ()?? 07/30/2023 11:15 GI PCR, Cryptosporidium NEGATIVE ()?? 07/30/2023 11:15 GI PCR, Cyclospora cayetanensis NEGATIVE ()?? 07/30/2023 11:15 GI PCR, Entamoeba histolytica NEGATIVE ()?? 07/30/2023 11:15 GI PCR, Giardia lamblia NEGATIVE ()?? 07/30/2023 11:15 GI PCR, Adenovirus F 40/41 NEGATIVE ()?? 07/30/2023 11:15 GI PCR, Astrovirus NEGATIVE ()?? 07/30/2023 11:15 GI PCR, Norovirus GI/GII NEGATIVE ()?? 07/30/2023 11:15 GI PCR, Rotavirus A NEGATIVE ()?? 07/30/2023 11:15 GI PCR, Sapovirus NEGATIVE ()?? 07/30/2023 11:15 ?? TOXICOLOGY/TDM Ethanol, Serum or Plasma NONE DETECTED mg/dL ()?? 07/29/2023 14:40 Salicylate Level <0.3 mg/dL (Low)?? 07/29/2023 14:40 Barbiturate Screen, Urine NONE DETECTED ()?? 07/29/2023 21:29 Cannabinoid Screen, Urine NONE DETECTED ()?? 07/29/2023 21:29 Cocaine Metabolite Screen, Urine NONE DETECTED ()?? 07/29/2023 21:29 Benzodiazepine Screen, Urine POSITIVE (Abnormal)?? 07/29/2023 21:29 Amphetamine Screen, Urine NONE DETECTED ()?? 07/29/2023 21:29 Opiate Screen, Urine NONE DETECTED ()?? 07/29/2023 21:29 ?? UA/URINALYSIS Appear/Color, Urine DARK BROWN ()?? 07/29/2023 15:23 Specific Kimberly, Urine 1.021 ()?? 07/29/2023 15:23 pH, Urine 6.0 ()?? 07/29/2023 15:23 Albumin, Urine 3+ (Abnormal)?? 07/29/2023 15:23 Glucose, Urine 1+ (Abnormal)?? 07/29/2023 15:23 Ketones, Urine NEGATIVE (N)?? 07/29/2023 15:23 Bilirubin, Urine NEGATIVE (N)?? 07/29/2023 15:23 Hemoglobin, Urine 3+ (Abnormal)?? 07/29/2023 15:23 Nitrite, Urine NEGATIVE (N)?? 07/29/2023 15:23 Leukocyte, Urine NEGATIVE (N)?? 07/29/2023 15:23 Urobilinogen NORMAL mg/dL (N)?? 07/29/2023 15:23 WBC's, Urine 5 /HPF ()?? 07/29/2023 15:23 RBC's, Urine 9 /HPF (High)?? 07/29/2023 15:23 Bacteria HEAVY HPF (Abnormal)?? 07/29/2023 15:23 Squamous Epith <1 /HPF ()?? 07/29/2023 15:23 Transitional Epith <1 /HPF ()?? 07/29/2023 15:23 Hyaline Cast 11 LPF (High)?? 07/29/2023 15:23 Amorphous Crystals SLIGHT /HPF ()?? 07/29/2023 15:23 Mucus SLIGHT /LPF ()?? 07/29/2023 15:23 Hold Urine Culture Testing available 48 hours from time of collection. ()?? 07/29/2023 15:23 ?? URINE OTHER Est Creatinine Clearance 94.44 mL/min ()?? 08/08/2023 06:06 ? VIROLOGY Influenza A PCR NEGATIVE ()?? 07/29/2023 15:23 Influenza B PCR NEGATIVE ()?? 07/29/2023 15:23 RSV PCR NEGATIVE ()?? 07/29/2023 15:23 COVID-19 PCR Specimen Source NASAL ()?? 07/29/2023 15:23 COVID-19 PCR Result NEGATIVE ()?? 07/29/2023 15:23 ? Rashad Eason MD, PGY-1 Patient seen and case discussed with attending physician, Dr. Willis ?? 60??minutes spent on discharge * Cuate SIGALA, Nevin: PERFORM Event Display: Patient Education/Instruction Authored Date: [id number] Inpatient Adult Discharge Instructions [address] [address] Name: LARON GÓMEZ : 1975 Visit: 07/29/2023 19:42:00 Current Date: 08/08/2023 16:40 Account: [id number] Inpatient Adult Discharge Instructions We would like to thank you for allowing us to assist you with your healthcare needs. The following includes patient education materials and information regarding your injury/illness. Our entire staffstrives to provide an excellent experience for our patients and their families. PLEASE ENSURE YOU FOLLOW-UP PER THE INSTRUCTIONS BELOW! ?? YOUR OPINION IS IMPORTANT TO US! Please complete the survey you may receive by mail or email. Your feedback will be used to make improvements to the healthcare experiences of our patients and their families. Surveys are administered by [employer] ?? If further treatment with your primary care physician or another doctor is recommended, it is important for you to keep the appointment. Call your primary care physician or return to the Emergency Department immediately if your condition worsens, fails to improve, or new symptoms develop. If you need to find a doctor, you can call [facility] [employer] for a referral at [phone] or toll free at [phone] or log in to [email or web address].. ?? [facility], in keeping with [facility] guidance, no longer requires face masks for staff, patientsor visitors in most situations. Similiar to time spent indoors at other locations, there is the chance that you were exposed to repiratory viruses during your time with us (such as flu or COVID-19). If you develop symptoms concerning for a viral respiratory infection, please seek testing (and treatment if indicated) from your medical provider or home test kit. ?? You can view and manage your care through the patient portal or by using a health care nguyen of your choosing. [employer] is a website that allows you to securely view your medical information including your hospital discharge summary, office visit summaries, medications and follow-up visits. You can also request appointments, renew medications, and request access to your medical information using a health care nguyen of your choosing, or just ask a question. You can enroll at [email or web address] or register during your next office visit. You have been discharged from [facility], Patient Care Unit: M5. If you have any questions regarding these instructions after you leave, please call us and we will be happy to assist you. [facility] Your Care Team Attending Physician Lazaro BARBOZA, Peter Sheppard Consulting Providers Aida BARBOZA, Desirae Flynn; Madhu BARBOZA, Devorah; Weston BARBOZA, Summer Kirk; Nisha BARBOZA, Aiden Baird; Abel BARBOZA, Ann;Gee HELM, Mónica Vasquez Discharging Providers Rashad Eason MD Reason for Admission Pt inmate found down in cell pulseless and apneic in cell, CPR started. Pt in VTach, shocked x6. Arrives w/ igel in place, being bagged, +pulses. All appropriate staff at bedside Your Diagnosis Cardiac arrest Ventricular tachycardia Opioid use disorder Back pain Left ankle pain Pneumonia Prolonged QT interval Tests Performed Below is a partial list of the tests performed during your hospitalization. You may have had other tests and procedures not included in this list. Please discuss all test results with your provider. ABG?-- Results Pending -- ABG POC CARTRIDGE Alcohol Level Amphetamine Urine Screen Aspirin Level Barbiturate Urine Screen BASE EXCESS POC CARTRIDGE Basic Metabolic Panel Benzodiazepine Urine Screen BUN CALCIUM CALCIUM IONIZED POC CART Calprotectin Fecal Cannabinoid Urine Screen CBC CBC w/ Differential Cocaine Urine Screen Comprehensive Metabolic Panel COVID-19, RSV, and Flu A/B, Rapid PCR CREATININE Electrolytes FREE T4 GI Profile, Stool, PCR GLUCOSE GLUCOSE POC GLUCOSE POC CARTRIDGE HEMATOCRIT POC CARTRIDGE Hemoglobin A1C (Monitoring) HEMOGLOBIN POC CARTRIDGE High??Sensitivity??Troponin T HOLD LAVENDER TUBE INR Lactate Level Lactic Acid Level LFT's Lipase Lytes Magnesium Level Mg Level MRSA PCR Nasal Swab OP RESULT Opiate Screen Urine Ova and Parasite Exam pH Venous Phosphorus Level POTASSIUM POC CARTRIDGE PT (INR) PTT SODIUM POC CARTRIDGE Stool for WBC TSH with T4 Reflex (Adults Only) Type and Screen Urinalysis w/hold for Urine Culture VBG POC CARTRIDGE CT Abdomen and Pelvis W/O Contrast CT Chest W/O Contrast CT Head/Brain W/O Contrast CXR Portable MRI Cardiac W+W/O Contrast XR Ankle Min 3 Views Left XR Chest 2 Views Frontal and Lat XR Chest Portable You will be contacted within 72 hours with your results. Primary Care Provider Not on Staff, PCP Advance Directive Health Care Proxy on File No Discharge Vitals Temperature: 98.2 DegF Height: 175 cm Pulse Rate: 66 bpm Weight: 81 kg Respiratory Rate: 18 br/min Body Mass Index:??26.45 kg/m2??High Systolic Blood Pressure: 119 mm Hg Body surface area: 1.98 Diastolic Blood Pressure: 67 mm Hg ?? Oxygen Saturation: 96 % ?? Studies Pending All tests and labs ordered during this hospital stay have been completed unless listed below. Please discuss all pending results with your provider listed above in these instructions. ?? Add On Lab Order BUN Basic Metabolic Panel Blood Gas Arterial (ABG) CBC Calcium Level Creatinine Glucose Level Hepatic Function Panel (LFT's) Magnesium Level Phosphorus Level What to do next Instructions From Your Doctor Diagnosis/Test Results You were seen in the hospital after what is known as a cardiac arrest, meaning your heart was not pumping in a way that would give you a pulse. You were given electrical treatment via defibrillation and medications to help your heart start??working more normally again.??You??had a procedure that placed a device under the skin on the left side of your chest. This device??has wires that go to your heart that can help??prevent your heart from??having the same type of arrhythmia (malfunctioning) that??made??your??heart stop from squeezing properly. ?In the hospital, you were also treated for pneumonia with antibiotics. It appears that you may have some pneumonia that will require more antibiotic treatment. We have sent a prescription for this antibiotic. ?? You had an ultrasound of your heart to assess its squeezing. It appears that the squeezing of your heart is severely reduced from a healthy level. We have started medications that help with the treatment of reduced heart squeezing. 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 With your symptoms here in the hospital, it seems that it is less likely to be an infection. If you do start to have worsening back pain, difficulty moving your legs, numbness or tingling in your legs, please seek medical care or come back to the hospital. ? What to do/When to return If you notice any fevers, redness, swelling, or pus coming from your chest over your device, any new or worsening chest pain, difficulty breathing, or any other concerning symptoms, please do not hesitate to come back to the hospital or seek medical care. ?? Please take your medications as prescribed. ?? Please follow-up with your primary care provider within one week??for follow-up laboratory tests and to discuss your hospitalization. ?? Please follow-up with a cardiology provider as scheduled. ?? Medications ?? - Augmentin 875mg-125mg - 1 tablet every 12 hours for 5 days - Furosemide 20mg - 1 tablet daily?? - Amiodarone 2 tablets (400mg total) daily - Carvedilol 6.25mg - 1 tablet twice a day - Valsartan 40mg - 1 tablet twice daily - Methadone??4 tablets (40mg total) daily - Levothyroxine 75mcg - 1 tablet daily Discharge Orders Activity:??Do not raise shoulder above 90 degrees Code Status:?? Full Resuscitation Condition:??Fair Prognosis:??Fair Scheduled Follow-Up Appointments Friday 9:30 AM EST ?? Where: [facility] [address] [place] [address]- Status: Pending Friday 9:15 AM EST ?? With: Olga Rajan NP Where: [facility] [address] [place] [address]- Status: Pending You Need to Schedule the Following Appointments Follow Up with??Not on Staff, PCP When:??Within Within one week Why: Please follow-up with your primary care provider for follow-up laboratory tests and to discussyour hospitalization. Discharge Medications LARON HUNTER :1975 Visit Date:07/29/2023 Medications: Please continue your medications until treatment is completed or stopped by your provider. Medications not listed below should be discontinued. Discuss any questions related to medications with your provider. What How Much When Instructions Next Dose New amiODARONE (amiodarone 200 mg oral tablet) 400 Milligram Oral Daily Duration: 90 Days Pickup at [place] [address] 08/09/2023 9am New Amoxicillin-Clavulanate (Augmentin 875 mg-125 mg oral tablet) 1 tab(s) Oral Every 12 hours Duration: 5 Days Pickup at [place] [address] 08/08/2023 9pm New Carvedilol (carvedilol 6.25 mg oral tablet) 6.25 Milligram Oral Twice a day Duration: 90 Days Pickup at [place] [address] 08/08/2023 9pm New Furosemide (Lasix 20 mg oral tablet) 1 tab(s) Oral Daily Duration: 90 Days Pickup at [place] [address] 08/09/2023 9am New Levothyroxine (levothyroxine 75 mcg (0.075 mg) oral tablet) 75 Microgram Oral Daily Duration: 90 Days Pickup at [place] [address] 08/09/2023 9am New Valsartan (valsartan 40 mg oral tablet) 40 Milligram Oral Twice a day Duration: 90 Days Pickup at [place] [address] 08/08/2023 9pm Changed Methadone (methadone 10 mg oral tablet) 4 tablets Oral Daily 08/09/2023 9am Pharmacy Information [facility] 3: [address], [place] [id number] [phone] ?? What How Much When Comments Stop Taking Ibuprofen (ibuprofen 600 mg oral tablet) 1 tab(s) Oral Every 8 hours Stop Taking Ibuprofen (ibuprofen 600 mg oral tablet) 1 tab(s) Oral Every 6 hours Test Results Below is a partial list of the most recent Laboratory test results done prior to this discharge. You may have had other tests and procedures not included in this list. Please discuss all test resultswith your provider. Antibody Identification 1 - Anti-K (08/05/2023) Est Creatinine Clearance - 94.44 mL/min (08/08/2023) ABG POC CARTRIDGE (07/30/2023) ???pH (POC) POC Cartridge - 7.37???pCO2 (POC) POC Cartridge - 35.8 mm Hg???pO2 (POC) POC Cartridge - 150 mm Hg???Estimated Bicarbonate (POC) POC Cart - 20.7 mmol/L???% O2 Sat Arterial (POC) POC Cartridge - 99 %???Specimen Type - Blood Gas - ARTERIAL Alcohol Level (07/29/2023) ???Ethanol, Serum or Plasma - NONE DETECTED Amphetamine Urine Screen (07/29/2023) ???Amphetamine Screen, Urine - NONE DETECTED Aspirin Level (07/29/2023) ? ?Salicylate Level - <0.3 mg/dL Barbiturate Urine Screen (07/29/2023) ???Barbiturate Screen, Urine - NONE DETECTED BASE EXCESS POC CARTRIDGE (07/30/2023) ???Base Excess (POC) POC Cartridge - NEGATIVE 5 Basic Metabolic Panel (08/08/2023) ???Sodium - 134 mmol/L???Potassium - 5.1 mmol/L???Chloride - 96 mmol/L???Bicarbonate Level - 30 mmol/L???Anion Gap - 8???Glucose Level - 108 mg/dL???BUN - 15 mg/dL???Creatinine-Blood - 0.9 mg/dL???Estimated GFR Creatinine - 103 ML/MIN/1.73 M2???Calcium - 9.2 mg/dL Benzodiazepine Urine Screen (07/29/2023) ???Benzodiazepine Screen, Urine - POSITIVE BUN (07/31/2023) ???BUN - 42 mg/dL CALCIUM (07/31/2023) ???Calcium - 8.0 mg/dL CALCIUM IONIZED POC CART (07/30/2023) ???Ionized Calcium (POC) POC Cartridge - 1.08 mmol/L Calprotectin Fecal (07/30/2023) ???Calprotectin Fecal - 1710 Cannabinoid Urine Screen (07/29/2023) ???Cannabinoid Screen, Urine - NONE DETECTED CBC (08/06/2023) ???WBC - 9.9 k/mm3???RBC - 3.17 m/mm3???Hgb - 9.8 Gm/dL???Hct - 30.7 %???MCV - 96.8 femtoliters???MCH - 30.9 pg???MCHC - 31.9 g/dL???Platelet Count - 360 k/mm3???RDW-SD - 47.3 femtoliters???MPV - 10.0 femtoliters???Nucleated RBC (Automated) - 0.0 #/100 WBC'S???Abs. NRBC - 0.0 k/mm3 CBC w/ Differential (08/08/2023) ???WBC - 12.9 k/mm3???RBC - 3.76 m/mm3???Hgb - 11.4 Gm/dL???Hct - 36.8 %???MCV - 97.9 femtoliters???MCH - 30.3 pg???MCHC - 31.0 g/dL???Platelet Count - 478 k/mm3???RDW-SD - 47.8 femtoliters???MPV - 9.7 femtoliters???Nucleated RBC (Automated) - 0.0 #/100 WBC'S???Abs. NRBC - 0.0 k/mm3???Abs. Neut - 8.7 k/mm3???Abs. Lymph - 2.0 k/mm3???Abs. [place] - 0.9 k/mm3???Abs. Eo - 1.2 k/mm3???Abs. Baso - 0.1 k/mm3???Neut % - 67.1 %???Lymph % - 15.6 %???[place] % - 7.1 %???Eos % - 9.0 %???Baso % - 0.5 %???Imm Gran - 0.7 %???Abs. Imm Gran - 0.1 k/mm3 Cocaine Urine Screen (07/29/2023) ???Cocaine Metabolite Screen, Urine - NONE DETECTED Comprehensive Metabolic Panel (08/04/2023) ???Sodium - 135 mmol/L???Potassium - 4.1 mmol/L???Chloride - 101 mmol/L???Bicarbonate Level - 26 mmol/L???Anion Gap - 8???Glucose Level - 107 mg/dL???BUN - 14 mg/dL???Creatinine-Blood - 0.7 mg/dL???Estimated GFR Creatinine - 110 ML/MIN/1.73 M2???Calcium - 8.2 mg/dL???Protein, Total - 4.8 Gm/dL???Alb umin - 2.8 Gm/dL???AG Ratio - 1.4???Alkaline Phosphatase - 74 units/L???AST (SGOT) - 35 units/L???ALT (SGPT) - 54 units/L???Bilirubin, Total - 0.3 mg/dL COVID-19, RSV, and Flu A/B, Rapid PCR (07/29/2023) ???Influenza A PCR - NEGATIVE???Influenza B PCR - NEGATIVE???RSV PCR - NEGATIVE???COVID-19 PCR Specimen Source - NASAL???COVID-19 PCR Result - NEGATIVE CREATININE (07/31/2023) ???Creatinine-Blood - 1.6 mg/dL???Estimated GFR Creatinine - 54 ML/MIN/1.73 M2 Electrolytes (07/30/2023) ???Sodium - 140 mmol/L???Potassium - 5.7 mmol/L???Chloride - 106 mmol/L???Bicarbonate Level - 22 mmol/L???Anion Gap - 12 FREE T4 (07/29/2023) ???Free T4 - 0.75 ng/dL GI Profile, Stool, PCR (07/30/2023) ???GI PCR, Campylobacter - NEGATIVE???GI PCR, Plesiomonas shigelloides - NEGATIVE???GI PCR, Salmonella - NEGATIVE???GI PCR, Vibrio - NEGATIVE???GI PCR, Vibrio cholerae - NEGATIVE???GI PCR, Yersinia enterocolitica - NEGATIVE???GI PCR, Enteroaggregative E coli - NEGATIVE???GI PCR, Enteropathogenic E coli - NEGATIVE???GI PCR, Enterotoxigenic E coli - NEGATIVE???GI PCR, Vbfns-azfsm-fudewnzsc E coli -NEGATIVE???GI PCR, Shigella/Enteroinvasive E coli - NEGATIVE???GI PCR, Cryptosporidium - NEGATIVE???GI PCR, Cyclospora cayetanensis - NEGATIVE???GI PCR, Entamoeba histolytica - NEGATIVE???GI PCR, Giardia lamblia - NEGATIVE???GI PCR, Adenovirus F 40/41 - NEGATIVE???GI PCR, Astrovirus - NEGATIVE???GIPCR, Norovirus GI/GII - NEGATIVE???GI PCR, Rotavirus A - NEGATIVE???GI PCR, Sapovirus - NEGATIVE GLUCOSE (07/31/2023) ???Glucose Level - 133 mg/dL GLUCOSE POC (08/04/2023) ???Glucose, POC - 107 mg/dL GLUCOSE POC CARTRIDGE (07/30/2023) ???Glucose (POC) POC Cartridge - 110 HEMATOCRIT POC CARTRIDGE (07/30/2023) ???Hematocrit (POC) POC Cartridge - 31 % Hemoglobin A1C (Monitoring) (08/05/2023) ???Hemoglobin A1C (Monitoring) - 5.4 % HEMOGLOBIN POC CARTRIDGE (07/30/2023) ???Hemoglobin (POC) POC Cartridge - 10.5 Gm/dL High??Sensitivity??Troponin T (07/29/2023) ???High Sensitivity Troponin (HSTnT) - HEMOLYZED HOLD LAVENDER TUBE (08/02/2023) ???Hold Lavender Top - SPECIMEN DISCARDED AFTER 24 HOURS. INR (07/29/2023) ???INR - 1.0???Protime (PT) - 10.8 seconds Lactate Level (08/01/2023) ???Lactate - 0.9 mmol/L Lactic Acid Level (07/31/2023) ???Lactate - 1.5 mmol/L LFT's (07/30/2023) ???Protein, Total - 5.5 Gm/dL???Albumin - 3.2 Gm/dL???Alkaline Phosphatase - 103 units/L???AST (SGOT) - 260 units/L???ALT (SGPT) - 253 units/L???Bilirubin, Total - 0.6 mg/dL???Bilirubin, Direct - 0.3mg/dL???Bilirubin, Indirect - 0.3 mg/dL Lipase (07/29/2023) ???Lipase - 31 units/L Lytes (07/31/2023) ???Sodium - 136 mmol/L???Potassium - 5.0 mmol/L???Chloride - 105 mmol/L???Bicarbonate Level - 22 mmol/L???Anion Gap - 9 Magnesium Level (08/08/2023) ???Magnesium - 1.8 mg/dL Mg Level (08/06/2023) ???Magnesium - 1.7 mg/dL MRSA PCR Nasal Swab (07/30/2023) ???MRSA PCR Result - Positive, MRSA target DNA detected.???S Aureus PCR Result - Positive, SA target DNA detected. OP RESULT (07/30/2023) ???OP Result 1 - Comment Opiate Screen Urine (07/29/2023) ???Opiate Screen, Urine - NONE DETECTED Ova and Parasite Exam (07/30/2023) ???Parasitic Examination - Final report???Parasitic Exam Specimen Source - STOOL pH Venous (07/29/2023) ???pH, Venous - 6.87 Phosphorus Level (08/08/2023) ???Phosphorus - 3.5 mg/dL POTASSIUM POC CARTRIDGE (07/30/2023) ???Potassium (POC) POC Cartridge - 3.8 mmol/L PT (INR) (07/29/2023) ???INR - 1.1???Protime (PT) - 11.4 seconds PTT (07/29/2023) ???APTT - 25.6 seconds SODIUM POC CARTRIDGE (07/30/2023) ???Sodium (POC) POC Cartridge - 145 mmol/L Stool for WBC (07/30/2023) ???WBC Stool - NONE SEEN TSH with T4 Reflex (Adults Only) (07/29/2023) ???TSH - 11.10 uIU/mL Type and Screen (08/05/2023) ???Blood Type - O Positive???Antibody Screen - Positive Urinalysis w/hold for Urine Culture (07/29/2023) ???Appear/Color, Urine - DARK BROWN???Specific Kimberly, Urine - 1.021???pH, Urine - 6.0???Albumin, Urine - 3+???Glucose, Urine - 1+???Ketones, Urine - NEGATIVE???Bilirubin, Urine - NEGATIVE???Hemoglobin, Urine - 3+???Nitrite, Urine - NEGATIVE???Leukocyte, Urine - NEGATIVE???Urobilinogen - NORMAL???WBC's, Urine - 5 /HPF? ?RBC's, Urine - 9 /HPF? ?Bacteria - HEAVY? ?Squamous Epith - <1 /HPF? ?Transitional Epith - <1 /HPF? ?Hyaline Cast - 11 LPF? ?Amorphous Crystals - SLIGHT? ?Mucus - SLIGHT? ?Hold Urine Culture - Testing available 48 hours from time of collection. VBG POC CARTRIDGE (07/30/2023) ???pH Venous (POC) POC Cartridge - 7.26???pCO2 Venous (POC) POC Cartridge - 56.6 mm Hg???pO2 Venous(POC) POC Cartridge - 36 mm Hg???Est Bicarbonate (POC) POC Cartridge - 25.4 mmol/L???% O2 Sat Venous (POC) POC Cartridge - 59???Specimen Type - Blood Gas - MIXED VENOUS Allergies (NKA means No Known Allergies) No Known Medication Allergies Problems No qualifying data available Education Materials Below is the list of Educational Leaflet Providered with your Discharge Instructions. Valuables and Belongings I fully understand and agree that [facility] accepts no responsibility for all my personal property including clothing, toilet articles, radios, jewelry, dentures, hearing aids, rings, money, or any other property that is in my possession or is brought to me after admission. I understand certain valuables may be placed in a hospital safe for a short period of time. I understand that the hospital is not liable for loss or damage due to accident, fire, or other natural occurrence while said property is in the safe. I accept full responsibility for any personal property that I keep with me, and will not hold the hospital responsible in case of loss or disappearance. I acknowledge that i have been encouraged to send valuables and belongings home. ?? No Valuables/Belongings: No valuables/belongings present Date for Pt to Sign Valuables/Belongings: 07/30/23 00:46:00 ?? Other Discharge Information ? Pulmonary Rehab Status?? Pulmonary Rehab Discharge Status?? Respiratory Rate: 18 br/min PEEP: 5 ? Common Emergency Awareness Tips IS IT A STROKE? Act FAST and Check for these signs: FACE Does the face look uneven? ARM Does one arm drift down? SPEECH Does their speech sound strange? TIME Call at any sign of stroke ?? Heart Attack Signs Chest discomfort: Most heart attacks involve discomfort in the center of the chest and lasts more than a few minutes, or goes away and comes back. It can feel like uncomfortable pressure, squeezing, fullness or pain. Discomfort in upper body: Symptoms can include pain or discomfort in one or both arms, back, neck, jaw or stomach. Shortness of breath: With or without discomfort. Other signs: Breaking out in a cold sweat, nausea, or lightheaded. Remember, MINUTES DO MATTER. If you experience any of these heart attack warning signs, call to get immediate medical attention! ?? Smoking can increase your chances of developing chronic health problems and can cause harmful effects to other family members in your house. If you smoke, you are strongly encouraged to quit. Please call [facility] at [phone] or [phone] ([phone] or log in to [email or web address] for referrals to smoking cessation programs. ?? 335 Suicide & Crisis Lifeline is available 28/04 if you or someone you know needs to find a reason to keep living. By calling 867 you'll be connected to a skilled, trained counselor at a crisis center in your area. INPATIENT DISCHARGE INSTRUCTIONS SIGNATURE PAGE GEE STOKESQUELARON Rosen Location:[facility] Registration Date and Time:07/29/2023 19:42 EDT Primary Care Physician: Not on Staff, PCP Attending Physician: Lazaro BARBOZA, Peter Sheppard, I LARON HUNTER, have received the above patient education materials/instructions and have verbalized understanding. If ambulance or transport services are being used I further acknowledge being given a choice of service. ?? If you need to contact me, please call me at this number: . Patient/Patient Care Manager Name: Patient/Patient Care Manager Signature: Relationship to Patient: Witness Name/Signature: Date: * Event Display: Hemodynamic Procedure Report Authored Date: * Event Display: Hemodynamic Procedure Report Authored Date: * Rosie Betancourt: VERIFY, PERFORM, SIGN Event Display: Cardiac Rehab Note Authored Date: Patient: LARON HUNTER Age: 48 years Sex: Male : 1975 Associated Diagnoses: None Author: Rosie Betancourt chart reviewed, patient does not qualify for phase 1 Cardiac Rehab. We will sign off at this time any questions please page [phone]. * Quinn Buckner RN: PERFORM, SIGN, VERIFY Event Display: Cardiac Rehab Note Authored Date: [id number] Patient: LARON HUNTER Age: 48 years Sex: Male : 1975 Associated Diagnoses: None Author: Quinn Buckner RN Patient s/p cardiac arrest, remains intubated post cardiac cath. Patient not appropriate for cardiac rehab at this time. Will see patient when medically appropriate. * Event Display: Hemodynamic Procedure Report Authored Date: * Event Display: Hemodynamic Procedure Report Authored Date: * Stefan Bautista: PERFORM, SIGN, VERIFY Event Display: Cardiac Rehab Note Authored Date: Patient: LARON HUNTER Age: 48 years Sex: Male : 1975 Associated Diagnoses: None Author: Stefan Bautista Diagnosis Cardiac Rehab Diagnosis: Pt currently Intubated, will F/U when appropriate.. Consult note * Dana Starks: PERFORM Event Display: Consultation Note Authored Date: Patient: ??LARON HUNTER ? Age:??48 Years?Sex:??Male?:??1975?? Reason for Consultation Addiction Med Consult - prolonged QT, methadone, recent v tach Requested by??Dr Chivo Reid History of Present Illness Laron Gómez is a 48 yo male with a PMHx of opioid use disorder and cocaine use, cardiomegaly and GERD. he was admitted 07/29 after presenting s/p cardiac arrest. Pt is currently in police custody, and the guards were about to do a search of the unit the pt was on. Pt was found shortly afterthat announcement, pulseless and apneic. Pt received 2 doses of narcan without improvement. Pt found to be in Vtach, he ended up receiving 6 shocks and 5 rounds of epi, code time 30 min before ROSC was achieved. Pt was intubated upon arrival to the ED, vtach began again and pt was shocked again andsent to the director of cardiac cath lab. Imaging without acute findings??other than possible discitis at L3-L4 + L4-L5. Additionally, pt underwent an echo, with findings as follows: LV mod- severe dilation, LV EF 10-15%. Pts QTc on EKG yesterday 555ms. Pt has since been extubated. ?? Met with pt this morning. Officer at bedside. Interview conducted with assistance of [employer] web interface developer - somewhat difficult at times as ptsspeech tends to be low volume and difficult for roller picker to hear. Pt reporting that he had been using heroin occasionally lately. He says he was on 75mg of methadone at [facility] in [place], though unclear how long it has been since hereceived that dose. Primary team was reportedly told 30mg from the retirement. He says he had been on that 75mg dose for 6 months now, and it lasted all day/night for him, but he still experienced issues with cravings. Pt did not endorse any use of other substances such as ETOH, cocaine or other stimulants, illicit pills, etc. Review of Systems Reporting some chest discomfort, likely 2/2 CPR Physical Exam Vitals & Measurements T:??99.4?F?? TMIN:??99.1?F?? TMAX:??99.4?F?? HR:??106??(Monitored)?? RR:??20?? BP:??131/86?? BP:??114/66(Line)?? SpO2:??100%?? WT:??82.7??kg?? General:??well developed, well nourished,??appears to be stated age.??Breathing is??even and unlabored.??In no acute distress,??no diaphoresis. Mental Status Exam: Appearance:??disheveled?? Attitude:??guarded? Eye contact:??normal Motor activity:??calm, no aberrant movements? Mood:??slightly irritable at times? Affect:??congruent? Speech:??fluent, unimpaired? Judgment:??appears intact? Insight:??appears intact? Thought process:??linear? Reliability:??uncertain? Fund of knowledge:??intact Assessment/Plan Opioid use disorder (F11.90):??. Pt reporting ongoing opioid use, and that he has been on methadone 75mg at [facility] in [place] for the last 6 months.??It does appear pharmacy staff has tried to verify this today, but??informed pt is notactive??at either [facility] or [place] locations. 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 ?? Pts QTc??much improved today, 508ms down from 555ms. Pt tachycardic as well, which is protective against TdP. Could??consider a one time??dose of methadone 15mg this afternoon. Even if pt was on??30mg, this is still a 50% reduction. Alternatively, oxycodone 5 to 10mg q 4 hrn PRN or scheduled could be added instead to help with withdrawal symptoms. ?? Pts K 5.3 and Mag 1.9 so no need for replacement there, and doesnt appear pt is really on any meds that could be contributing. Would recommend to recheck an EKG tomorrow AM.? Update sent via [employer] to Dr Encarnacion Addiction??Service will continue to follow with this patient. Thank you for allowing us to participate in the care of this patient. Please contact me with any further questions or concerns.?? Problem List/Past Medical History Ongoing No qualifying data Medications Inpatient acetaminophen 325 mg oral tablet, 650 mg, By Mouth, Every 4 hours, PRN Colace Liquid, 100 mg= 10 mL, By Mouth, 2 times a day, PRN Dextrose 50% Inj Syringe (25Gm), 12.5 Gm, IV Push Slowly, Every 20 minutes, PRN Dextrose 50% Inj Syringe (25Gm), 25 Gm, IV Push Slowly, Every 15 minutes, PRN FENTanyl 1000mcg / 100mL NaCl 1,000 mcg, 1000 mcg= 100 mL, IV Infusion Glucose Gel, 15 Gm, By Mouth, Every 20 minutes, PRN Glucose Gel, 30 Gm, By Mouth, Every 20 minutes, PRN Heparin Inj, 5000 units= 1 mL, Subcutaneous Injection, 3 times a day Humalog Sliding Scale, 2-10 units, Subcutaneous Injection, Every 6 hours levothyroxine 0.075 mg oral tablet, 75 mcg, By Mouth, Daily LR 500 mL, 500 mL, IV Infusion LR 500 mL, 500 mL, IV Infusion Methadone Liquid, 15 mg= 7.5 mL, By Mouth, Daily Methadone Liquid, 30 mg= 15 mL, By Mouth, Daily Mineral Oil /Petrolatum Ophth, 1 application, Eyes, Both, Every 4 hours NaCL 0.9% Flush, 3 mL, IV Push, Every 8 hours, PRN nalOXONE Inj, 0.2 mg= 0.5 mL, IV Push, Every 5 minutes, PRN nalOXONE Inj, 0.2 mg= 0.5 mL, IV Push, Every 5 minutes, PRN Pantoprazole Inj, 40 mg, IV Push Slowly, Daily Peridex 0.12% Liquid, 15 mL, Topically, 2 times a day PHENYLephrine 20 mg / NaCL 250 mL 20 mg, 20 mg= 250 mL, IV Infusion Propofol 1% /100 mL 1,000 mg, 1000 mg= 100 mL, IV Infusion Zosyn Extended IVPB, 3.375 Gm, IVPB, Every 8 hours Home methadone 10 mg oral tablet, 3 tablets, By Mouth, Daily Allergies No Known Medication Allergies * Lana Christie DO: PERFORM, MODIFY Event Display: Consult Authored Date: [id number] Patient: ??GEE JOHNZQUEZ LARON ? Age:??48 Years?Sex:??Male?:??1975?? Patient Hx [facility] - Cardiology Consultation Note ?? Consult Requesting Physician: Consulting Zoology Professor: Primary Zoology Professor: Consult Reason:??VT Indication for Consult Pt inmate found down in cell pulseless and apneic in cell, CPR started. Pt in VTach, shocked x6. Arrives w/ igel in place, being bagged, +pulses. All appropriate staff at bedside History of Present Illness/Interval History This is a 48-year-old male with history of polysubstance abuse (cocaine and opiate use disorder on methadone 30 mg daily), currently in the incarceratedwho presented to the ED due to VT storm.? Patient is currently sedated and intubated therefore history is obtained through chart review and discussion with clinical staff. Per report patient was in usual state of health the morning of admission, sitting in his cell and painting when the guards announced that they would start searching the cells.?? Approximately 2 minutes later patient was found to be down apneic and pulseless. It was uncl ear if he ingested any toxic substances. He received 2 doses of Narcan with no improvement EMS around 1:30 pm on 07/29/23. When EMS, patient was found to be in pulseless VT with some runs of VF.?? ACLS protocol was initiated and he received a he was defibrillated 6 times with 5 rounds of epinephrine and 300 mg of IV amiodarone. Total down time of 30 minutes prior to achieving ROSC. He was noted to have movement of all extremities post ROSC.?? He was intubated in the ED patient.?? Initial EKG showed heart rate of 149 bpm with narrow complex tachycardia and diffuse ST depressions and elevation in aVR consistent with ventricular tachycardia.?? Patient was started on an amiodarone and heparin dr dharmesh he also received 20 mcg of epinephrine for an episode of hypotension to the 70s systolic.?? Once again patient went into persistent VT at 220 bpm and was cardioverted.?? His labs revealed metabolic acidosis with a bicarbonate level of 16 and a lactate of 13.4.?? His VBG revealed a pH of 6.88, PCO2 of 99, PO2 46 bicarbonate of 18. He received??amiodarone, lidocaine, procainamide, Lopressor andpushed of propofol.??Limited echo was performed which revealed severely reduced LVEF of 10 to 15% with severe global hypokinesis with regional variation.?? RV was normal in size and RV systolic function was hyperdynamic.?? Patient was taken for left and right cardiac catheterization on 07/29/2023 with placement of IABP for hemodynamic support. His cath revealed minimal luminal irregularities in all of his coronary arteries, LVEDP of 9. His right heart cath revealed an RA pressure of 8, PA 30/15with a mean of 20, pulmonary capillary wedge pressure mean of 14, PA saturation of 72 with a calculated Silver CI 1.7, CO 3.16 and SV 25. EP consulted given VT/VF. ?? Patient currently seen and examined at bedside in [facility] 7.?? Patient has been febrile with a Tmaxof 101.3 likely due to aspiration pneumonia treated with Vancomycin and Zosyn. He remains intubatedand sedated on propofol, at 40 mcg/kg/min, Versed at 1 mg/h, and fentanyl at 125 mcg/hr. He is currently on phenylephrine at 0.5 mcg/kg/min for hemodynamic support. He was found to have a TSH of 11.10 and FT4 of 0.75 and was started on levothyroxine. He has minimal urine output with creatinine of 1.1 as well as transaminitis and improving lactic acidosis of 3.4.?? His UDS is only positive for benzodiazepines which he received by EMS per report. Overnight, on telemetry was noted to have runs of s low ventricular tachycardia and received amiodarone boluses. Review of Systems ROS could not be obtained as patient is intubated and sedated. Physical Exam Vitals & Measurements T:??100.7?F?? HR:??102??(Monitored)?? RR:??18?? BP:??99/74?? BP:??110/63(Line)?? SpO2:??97%?? WT:??83.6??kg?? Weight lb/oz: 184 lb 5 oz Physical Exam: General:??Intubated and sedated. HEENT:??No scleral icterus. ET tube in place. Neck:??Supple. No JVD noted. Cardiovascular:??Regular rate and rhythm, normal S1, S2. No appreciable murmurs/gallops or rubs. Respiratory:??Mechanical breath sounds bilaterally. Abdomen:??Soft, nontender, non-distended. Vascular:??Even and symmetrical pulses bilaterally. No peripheral edema. Integumentary: Warm. No petechiae or ecchymosis. Multiple tattoos. Neurology:??Minimally responsive on large amount of sedation. ?? Assessment/Plan This is a 48-year-old male with history of cocaine and opiate use disorder on methadone currently in the incarcerated who presented to the ED due to VT storm.? VT Storm Prolonged QTc Cardiac arrest HFrEF 10-15%, non-ischemic History of opioid use, on methadone History of cocaine use, negative UDS ?? Recommendations: Patient presents with pulseless VT arrest and hemodynamic instability requiring advanced cardiac life support with??multiple attempts of electrical cardioversion prior to achieving ROSC.?? It is believed that patient may have ingested methadone prior to his cardiac arrest.?? Given incessant VT despite being treated with IV amiodarone, lidocaine, procainamide, and Lopressor,??and hemodynamic instability, patient was emergently taken to the cardiac [facility].?? He briefly required mechanical support with intra-aortic aortic balloon pump during the cardiac cath which has now been removed.?? He was found to have no obstructive coronary disease. No evidence of thyrotoxicosis. His UDS only positive for benzodiazapines. His TTE reveals severely reduced LVEF 10-15% which is likely acute and related to stunning given that his LV is not dilated (LVDD 5.5 cm). Patient remains intubated and sedated on large doses of sedation which is slowly being weaned. Nursing is reporting that patient has neurological function and has been able to move his extremities.?? He has been maintained on amiodarone overnight and was re-bolused due to slow ventricular tachycardia.?? His electrolyte abnormalities have been corrected and he is no longer acidotic or hypokalemic. He is currently in normal sinus rhythmhowever was noted to have a prolonged QTc of 636 ms.?? He has not had any more VT since early this m orn.?? Decision was made to discontinue amiodarone by the CCU team. Recommend to continue supportive care.?? He currently remains hemodynamically stable.?? Twelve-leadEKG was repeated this morning shows sinus tachycardia with a rate of 102 bpm, and a QTc of 555 ms.?? If he were to have recurrent ventricular tachycardia recommend lidocaine bolus and drip. If has more VT on lidocaine can consider propranolol. If patient improves, can repeat Echo in 1 week to monitor for EF recovery. If no EF recovery, recommend cMRI and ICD. ? Patient discussed with attending infrastructure developer, ??[place]. ?? Lana Christie, DO Cardiovascular Disease Fellow, PGY-5 [facility] [employer] [address], [place] [address] ? Allergies No Known Medication Allergies Home Medications Methadone: 3 tablets, By Mouth, Daily Hospital Medications Medications (26) Active SCHEDULED: (8) Chlorhexidine 0.12% Oral Rinse UD (Peridex 0.12% Liquid) ??15 mL, Topically, 2 times a day Heparin 5000 units/mL Inj (1 mL) (Heparin Inj) ??5,000 units 1 mL, Subcutaneous Injection, 3 times a day Insulin Lispro 100 units/mL Inj (3mL) (Humalog Sliding Scale) ??2-10 units, Subcutaneous Injection,Every 6 hours Levothyroxine 75 mcg Tablet (levothyroxine 0.075 mg oral tablet) ??75 mcg, By Mouth, Daily Mineral Oil/Petrolatum Ophth Ointment (Mineral Oil /Petrolatum Ophth) ??1 application, Eyes, Both, Every 4 hours Pantoprazole 40 mg Inj (Pantoprazole Inj) ??40 mg, IV Push Slowly, Daily Piperacillin/Tazobactam 3.375 Gm Inj (Zosyn Extended IVPB) ??3.375 Gm, IVPB, Every 8 hours Vancomycin 1 Gm / D5%W 200 mL (Vancomycin IVPB) ??1,000 mg 200 mL, IVPB, Every 12 hours CONTINUOUS: (11) Amiodarone 900 mg Cont IV 900 mg [1 mg/min] + D5%W (500mL) Cont IV 500 mL (amiODARONE Cont IV 900 mg [1 mg/min] + D5%W Normalized 500 mL) ??500 mL, IV Infusion, 33.33 mL/hr Fentanyl 1000mcg/100mL NaCL 1,000 mcg (FENTanyl 1000mcg / 100mL NaCl 1,000 mcg) ??1,000 mcg 100 mL,IV Infusion Lactated Ringers (500 mL) Cont IV 500 mL (LR 500 mL) ??500 mL, IV Infusion, 100 mL/hr Lactated Ringers (500 mL) Cont IV 500 mL (LR 500 mL) ??500 mL, IV Infusion, 100 mL/hr Midazolam 100mg / 100mL NaCL 100 mg (Versed 100mg / 100mL NaCL (Titrate) 100 mg) ??100 mg 100 mL, IV Infusion NaCL 0.9% (1000 mL) Cont IV 1,000 mL (NaCL 0.9% 1,000 mL) ??1,000 mL, IV Infusion, 10 mL/hr NaCL 0.9% (1000 mL) Cont IV 1,000 mL (NaCL 0.9% 1,000 mL) ??1,000 mL, IV Infusion, 10 mL/hr PHENYLephrine 20mg / 250mL NaCL 20 mg (PHENYLephrine 20 mg / NaCL 250 mL 20 mg) ??20 mg 250 mL, IV Infusion Propofol 10mg/mL Cont IV (100mL) 1,000 mg (Propofol 1% /100 mL 1,000 mg) ??1,000 mg 100 mL, IV Infusion Sodium Chloride 0.9% 500 mL (NaCL 0.9% 500 mL) ??500 mL, Intra-arterial, 3 mL/hr Sodium Chloride 0.9% 500 mL (NaCL 0.9% 500 mL) ??500 mL, IV Infusion, 3 mL/hr PRN: (7) Acetaminophen 325 mg Tablet (acetaminophen 325 mg oral tablet) ??650 mg, By Mouth, Every 4 hours Dextrose Inj Syringe (Dextrose 50% Inj Syringe (25Gm)) ??12.5 Gm, IV Push Slowly, Every 20 minutes Dextrose Inj Syringe (Dextrose 50% Inj Syringe (25Gm)) ??25 Gm, IV Push Slowly, Every 15 minutes Docusate Sodium 10 mg/mL Liquid UD (Colace Liquid) ??100 mg 10 mL, By Mouth, 2 times a day Glucose 40% Gel (15 Gm) (Glucose Gel) ??15 Gm, By Mouth, Every 20 minutes Glucose 40% Gel (15 Gm) (Glucose Gel) ??30 Gm, By Mouth, Every 20 minutes NaCl 0.9% Flush 3ml (NaCL 0.9% Flush) ??3 mL, IV Push, Every 8 hours Lab Results Cardiology Labs WBC: 10.4 k/mm3 (07/30/23) RBC:??3.95 m/mm3??Low (07/30/23) Hgb:??11.9 Gm/dL??Low (07/30/23) Hct:??36.9 %??Low (07/30/23) MCV: 93.4 femtoliters (07/30/23) MCH: 30.1 pg (07/30/23) MCHC:??32.2 g/dL??Low (07/30/23) Platelet Count: 243 k/mm3 (07/30/23) RDW-SD: 45.2 femtoliters (07/30/23) Nucleated RBC (Automated): 0 #/100 WBC'S (07/30/23) Abs. Neut: 2 k/mm3 (07/29/23) Abs. Lymph:??8.2 k/mm3??High (07/29/23) Abs. [place]: 0.6 k/mm3 (07/29/23) Abs. Eo:??1.2 k/mm3??High (07/29/23) Abs. Baso: 0 k/mm3 (07/29/23) Neut %:??12.2 %??Low (07/29/23) [place] %:??4.3 %??Low (07/29/23) Eos %:??9.6 %??High (07/29/23) Baso %: 0 % (07/29/23) INR: 1.1 (07/29/23) Protime (PT): 11.4 seconds (07/29/23) APTT: 25.6 seconds (07/29/23) Sodium: 141 mmol/L (07/30/23) Potassium: 4.2 mmol/L (07/30/23) Chloride: 107 mmol/L (07/30/23) Bicarbonate Level:??21 mmol/L??Low (07/30/23) Glucose Level:??143 mg/dL??High (07/30/23) BUN:??33 mg/dL??High (07/30/23) Creatinine-Blood:??1.5 mg/dL??High (07/30/23) Calcium:??8.4 mg/dL??Low (07/30/23) Protein, Total:??4.7 Gm/dL??Low (07/30/23) Albumin:??2.8 Gm/dL??Low (07/30/23) Alkaline Phosphatase: 106 units/L (07/30/23) AST (SGOT):??279 units/L??High (07/30/23) ALT (SGPT):??233 units/L??High (07/30/23) Bilirubin, Total: 0.5 mg/dL (07/30/23) TSH:??11.1 uIU/mL??High (07/29/23) Free T4: 0.75 ng/dL (07/29/23) Diagnostic Impression ECG ECG 12-Lead ?? OCT/25/23 02:47:58 Please click on pdf link to open report ?? Signed By: Roberta Mcdermott DO ?? ECG 12-Lead ?? 02:47:58 Ventricular Rate: 110 BPM QRS Duration: 162 ms Q-T Interval: 460 ms QTC Calculation(Bazett): 622 ms R [place]: 113 degrees T [place]: -54 degrees Wide QRS rhythm with occasional Premature ventricular complexes Right bundle branch block T wave abnormality, consider inferolateral ischemia Abnormal ECG When compared with ECG of 29-JUL-2023 20:45, MANUAL COMPARISON REQUIRED, DATA IS UNCONFIRMED Confirmed by ROBERTA MCDERMOTT MD ([id number]) on 07/30/2023 8:16:24 AM ?? [place]: ROBERTA MCDERMOTT MD ?? Signed By: Roberta Mcdermott DO Echo Echocardiogram - Complete ?? 15:55:21 Summary 1. Limited study; only 34 images were taken. 2. The left ventricle is moderately to severely dilated. 3. The LV systolic function is severely reduced. The left ventricular ejection fraction is 10-15 %. 4. There is severe global hypokinesis with regional variation. 5. The right ventricle is normal in size. Right ventricular systolic function is hyperdynamic. ?? Comparison No prior study available for comparison. ?? Signature ?? Signed By: Travis Avelar MD Cardiac Cath Procedure Cardiac Cath Procedure ?? 17:38:00 Conclusions ?? Diagnostic Summary 48-year-old male with unknown past medical history,, currently incarcerated prior history of polysubstance use, presenting with VT arrest found to be in sustained ventricular tachycardia requiring multiple defibrillations, synchronized cardioversions, antiarrhythmic, ACLS with significant metabolic acidemia, hypoperfusion and cardiac shock from severe LV dysfunction and EF of 15 to 20%, presenting for diagnostic left and right heart catheterization. ?? Ultrasound-guided right common femoral arterial access with 6 [place] sheath used for diagnostic angiography. Subsequently upsized to 7 [place] IABP sheath placing a 40 cc balloon pump for hemodynamic support. Ultrasound-guided right common femoral venous access with 9 [place] venous Cordis sheath used for right heart catheterization and a 7 [place] thermodilution [place] was left in situ in right branches of the pulmonary artery for hemodynamic monitoring and sutured in place. ?? Coronary angiography: Left main no significant obstructive plaque. LAD large caliber with minimal plaque and normal flow in apical LAD and medium caliber diagonal Circumflex large caliber with minimal plaque normal flow into medium caliber OM???s. RCA large caliber with mid vessel tortuosity with no significant plaque and normal flow in a medium caliber PDA and PLB. ?? Normal LVEDP at 9. Low systemic pressure but good mean arterial pressure in the 70s. There is no significant pullback gradient across aortic valve. ?? Right heart catheterization: RA 8, PA 30/15 with mean of 20, pulmonary capillary wedge pressure mean of 14, PA saturation of 72 with calculated Silver cardiac index of 1.7-1.8 L/min/m2 with normal PVR. IABP and [place]-Emilia catheter were sutured in place for hemodynamic support and monitoring. ?? Diagnostic Recommendations No evidence of obstructive coronary disease. Improving hemodynamics with normal filling pressures. No indication for LV support given significant ectopy and risk of arrhythmia and suction events. IABP will be attempted to see if that helps his systemic pressure and perfusion but would discontinue it if that is not helping. Neurologic monitoring. Follow-up abdominal and cranial imaging. Antiarrhythmics per primary team. Pressor support and fluid boluses. LV appears stunned from recent VT and hopefully should improve over time. If he decompensates further hemodynamically, then LV support can be re-considered. ?? ACC Diagnostic Recommendations: Medical therapy and/or counseling. ?? Complications:None. ?? Signatures ?? Signed By: Maria Isabel Valdez MD Problem List/Past Medical History Ongoing No qualifying data Procedure/Surgical History No qualifying data available. Social History Unknown Family History No family history recorded. Admission evaluation note * Abel BARBOZA, Ann: MODIFY, MODIFY, MODIFY, MODIFY, MODIFY, MODIFY, PERFORM, MODIFY, MODIFY, MODIFY, MODIFY, MODIFY, MODIFY Event Display: Admission Note Authored Date: [id number] Patient: ??LARON HUNTER ? Age:??48 Years?Sex:??Male?:??1975?? History of Present Illness 48-year-old patient [facility] with PMHx of cocaine andopiate use disorder on methadone 30 mg, cardiomegaly, GERD who presents to our ED on 07/29 post cardiac arrest. ??History obtained via chart review. ??Per report patient was in usual state of health this morning sitting in his cell and painting when the guards announced that they would start searching the cells. ??At around 2 minutes later patient was found to be down apneic and pulseless it is unsure if he ingested any toxic substances but at around 1:30 PM he received 2 doses of Narcan with no improvement EMS was called and arrived found the patient to be in pulseless VT with some runs of V-fib. ??He ??was coded and he received a total of 6 shocks and 5 rounds of epi with a total code time of around 30 minutes and a bolus of 300 mg of Amio. ??ROSC was achieved and patient was noted to have movement of all extremities post ROSC. ??Arrival to the ED patient had an i-gel and patient was being bagged. ??Upon arrival to the ED patient was intubated. ??Initial EKG showed heart rate of 149 bpm with narrow complex tachycardia and diffuse ST depressions and elevation in aVR. ??Patient was started on an amio and heparin drips he also received 20 mcg of epinephrine for an episode of hypotension to the 70s systolic. ??Once again patient went into persistent VT at 220 bpm and received shock. ??The ED reached out to CCU fellow who accepted the patient for admission and patient was subsequently taken to [facility]. ?? Upon arrival to [facility]: - Vitals:??Afebrile,??normotensive??129/90??on??low-dose phenylephrine,??tachycardic 108??NSR??satting 100% on??AC/VC PEEP of 8 FiO2 of 60??respiratory rate of??24. - Labs: Most recent ABG on 4:21 PM with a pH of 7.32 and PCO2 of 52 and PO2 of 78, CBC with leukocytosis 12.9, macrocytosis, absolute neutrophilia 8.2 lymphocytosis 8.2, absolute eosinophilia 1.2, BMP with a bicarb of 16 anion gap of 25, POC of 254, normal creatinine, elevated transaminases with AST of 282 and ALT of 370 and a lactate of 13.4 down trended to 8.6. ??Elevated TSH of 11.1 with free T4 of 0.75., ??Respiratory panel negative, UA not suggestive of UTI. - EKG: Done at?? 20:45 showig?? sinus tachycardia at 113 BPM with QTC 526. No ischemic changes. - Imaging:?CTH?nonacute, CT chest and CT AP showing broad disc bulging at L3-L4 and L4-L5 with fragmentation of the anterior aspect of the L4 vertebral body acute process cannot be excluded consider discitis if concern for infection. ??Otherwise nonacute. - Cath: Completed R and L cardiac cath.?? R fem vein swan emilia placed. IABP placed in right common femoral artery.?? Hemodynamics: RA 7, PA 31/14, PCW 11, CI 1.8, LVEDP 9. Coronaries no angiographically significant lesions. IABP eventually stopped working and was removed by interventional.?? Ao pressure 105/80 and low dose lui started.?? PADP 14 received 250 cc fluids.?? R IABP sheath changed to 7 fr for BP monitoring. ? Upon my evaluation: Patient in bed intubated sedated??moving all extremities and following commands.?? Patient unable to participate in history taking. Review of Systems Constitutional: No fever or chills Cardiac: No Chest pain, no palpitations, no lightheadedness?? Respiratory: No shortness of breath, no cough, no sore throat Gastrointestinal: No diarrhea or constipation, no nausea, No vomiting,??No abdominal pain? Neurological: No headache, No visual Changes Extremities: No weakness, swelling or pain Objective Vital Signs?? Temperature: 98.6 DegF (07/29/23 17:15:00) Temperature Route: Core Bladder (07/29/23 17:15:00) Pulse Rate:??115 bpm??High (07/29/23 17:15:00) Heart Rate Monitored:??150 bpm??High (07/29/23 14:20:00) Respiratory Rate: 28 br/min (07/29/23 17:15:00) Vented: Yes (07/29/23 17:15:00) Systolic Blood Pressure: 130 mm Hg (07/29/23 17:15:00) Diastolic Blood Pressure:??97 mm Hg??High (07/29/23 17:15:00) Pulse Pressure: 33 mm Hg (07/29/23 17:15:00) Oxygen Saturation: 100 % (07/29/23 17:15:00) Mode of Delivery (Oxygen): Ventilator (07/29/23 17:15:00) FiO2: 100 % (07/29/23 17:15:00) End Tidal CO2: 36 mm Hg (07/29/23 17:15:00) Early Warning Score: 8 (07/29/23 18:31:22) ? Physical Exam General: Patient in no acute pain or distress??intubated sedated HEENT: normocephalic, atraumatic Respiratory: bilateral equal air entry, Ronchi appreciated RLL CVS: regular rate and rhythm, S1 and S2 present, no murmurs. No JVD.?? Abdomen: soft, non tender, non distended, bowel sounds present. Extremities: No edema noted bilaterally. Pulses intact. R groin access no hematoma or bleeding. Neuro: Intubated sedated. Moving all extremities spontaneously. Following simple commands. Assessment/Plan 48-year-old patient who is currently in custody at the [facility] with PMHx of cocaine andopiate use disorder on methadone 30 mg, cardiomegaly, GERD who presents to our ED on 07/29 after being found unresponsive ??post cardiac arrest admitted to [facility] for management of VT cardiac arrest. ?? Neuro/HEENT Intubated Sedated Cocaine and Opioid Use disorder Patient at baseline AOx3. He is currently moving all extremities and following commands with intactneuro exam. We will keep him deeply sedated to also help with his arrhythmias. It is unclear if he ingested any substances prior to his cardiac arrest. ?? Plan: - Fentanyl gttt CPOT <2 - Versed GTT JARED 0 - Propofol gttt JARED 0 - Daily assess restraints - Neuro checks Q4 -??Hold Home methadone. Morning team to confirm dose in AM from methadone clinc/ retirement. - F/U Utox ? Cardiovascular VT Cardiac Arrest VT Storm Cardiogenic Shock Prolonged QTC ?? History of Cardiomegaly Patient found unresponsive??at change. ??It is possible that he might of ingested??a toxic substance prior to his arrest. His cardiac catheterization shows clear coronaries. ??Patient found to be in VT storm??requiring multiple??shocks. He is currently on??epi gtt.?? His QTc is prolonged likely secondary to his IVF.?? At the [facility]??initially plan was to??send him to [facility] on IABP but??IABP malfunction and was removed??patient??started on low-dose phenylephrine??to support his blood pressure??but it looks like he will??shortly be able to be weaned off it. ??This is all in the setting of??myocardial stunning secondary to his??tachyarrhythmia and several shocks. ??With all that said patient will need??EP consult for evaluationfor ICD placement for??prevention. ?? Plan: - Preload: Received 250 cc bolus, consider 250 cc more if hypotensive, monitor UO closely,??Perfusion labs Q6hr (lactate,??CMP) ?? - Afterload: wean off phenylephrine gtt, MAP goal >65 - Pump: Echo ordered - Rythm: Amio gtt, Needs EP consult for evaluation of ICD. - Coronaries: No acute concern. ? Pulmonary Intubated Aspiration PNA Vent: ACVC PEEP 8 FIO2 60 RR 24 Sat 100% ?? Plan: - Vent Bundle - ABG - Vanc and zosyn for aspiration PNA ?? GI Diarrhea? Transaminitis Patient found to have veyr loose stool continius upon arrival to [facility]. CTAP not showing any evidence of colitis. Unable to obtain history. Due to concern of contamination of R fem access with stool we will temporarily place a flexiseal. Transaminitis 2/2 shock liver due to hypoperfusion. ?? Plan: - ICU Bowel regiment - OGT to suction - NPO except meds - Flexi-Seal temporary - Consider sending stool panel if persistent - Trend LFTs. ? Renal HAGMA Lactic Acidosis HAGMA likely in the setting of lactic acidosis 2/2 hypoperfusion from recent arrest and hypotension. Will hemodynamically support and manage as above. ?? Plan: - Monitor UO - Ochoa Catheter - Replete Mg>2 - Replete K+ >4 - Lactate Q6hr ? MSK/Integ Concern for L3-L4, L4-L5 Abnormality CT scan with abnormality at the L3,4,5 vertebral level. At the current moment no overt concern for infection. it is possible per radiology for these to be chronic findings but if infection is to be considered please obtain MRI. Currently patient is on abx for aspiration PNA. ?? Plan: - Consider Discitis if patient develops infection signs ?? Heme/Onc Leukocytosis Likely stress induced vs related to aspiration PNA. ?? Plan: - Recheck CBC in AM - Abx as below ?? Endocrine Hyperglycemia Elevated TSH Hyperglycemia likely stress induced. No documented hx of DM. Elevated TSH suggestive of subclinical hypothyroidism v sick euthyroid. ?? Plan: - SSI - POC Q6 while NPO - Hypoglycemic measures - Consider insulin gtt if requirement for insulin is high -??Repeat TSH ?? Infectious Disease Aspiration PNA Evidence of RLL aspiration PNA on CT chest which is expected in the setting of his arrest. Respiratory panel negative. UA not suggestive of UTI. Concern for discitis vs chronic lumbar vertebral changes at levels of L3-4 and L4-5 ?? Plan: - Vancomycin - Zosyn - Morning team to determine need for further abx (consider downgrade and tx with 5d course IV CTX) ? Quality Measures: Diet:??NPO Except Medication DVT prophylaxis:??S/c Heparin CODE STATUS: Presumed??Full Code ? This case has been reviewed and discussed with ??Francisco??Pipeline Controller Ann Roman MD Internal Medicine PGY-2 Pager: [phone] ? Histories Allergies Allergies ?(Active and Proposed Allergies Only) No Known Medication Allergies? (Severity: Unknown severity, Onset: Unknown) ? Past Medical History/Problem List Refer to HPI ? Past Surgical History Unable to obtain ? Social History Unable to obtain??unable to obtain ? Family History Unable to obtain ? Travel History Travel Outside [facility] of [place]: No ?? Medications Home Medications Methadone (methadone 10 mg oral tablet)?3 tablets?By Mouth?Daily ? Inpatient Medications Medications (21) Active SCHEDULED: (6) Chlorhexidine 0.12% Oral Rinse UD (Peridex 0.12% Liquid) ??15 mL, Topically, 2 times a day Heparin 5000 units/mL Inj (1 mL) (Heparin Inj) ??5,000 units 1 mL, Subcutaneous Injection, 3 times a day Insulin Lispro 100 units/mL Inj (3mL) (Humalog Sliding Scale) ??2-10 units, Subcutaneous Injection,3 times a day before meals Mineral Oil/Petrolatum Ophth Ointment (Mineral Oil /Petrolatum Ophth) ??1 application, Eyes, Both, Every 4 hours Piperacillin/Tazobactam 3.375 Gm Inj (Zosyn Extended IVPB) ??3.375 Gm, IVPB, Every 8 hours Vancomycin 1 Gm / D5%W 200 mL (Vancomycin IVPB) ??1,000 mg 200 mL, IVPB, Every 12 hours CONTINUOUS: (9) Amiodarone 900 mg Cont IV 900 mg [1 mg/min] + D5%W (500mL) Cont IV 500 mL (amiODARONE Cont IV 900 mg [1 mg/min] + D5%W Normalized 500 mL) ??500 mL, IV Infusion, 33.33 mL/hr D5%W (1000 mL) Cont IV 1,000 mL + Sodium Bicarbonate 8.4% ContIV 150 mEq (D5%W 1,000 mL + Sodium Bicarbonate Cont IV 150 mEq) ??1,000 mL, IV Infusion, 100 mL/hr Fentanyl 1000mcg/100mL NaCL 1,000 mcg (FENTanyl 1000mcg / 100mL NaCl 1,000 mcg) ??1,000 mcg 100 mL,IV Infusion Midazolam 100mg / 100mL NaCL 100 mg (Versed 100mg / 100mL NaCL (Titrate) 100 mg) ??100 mg 100 mL, IV Infusion NaCL 0.9% (1000 mL) Cont IV 1,000 mL (NaCL 0.9% 1,000 mL) ??1,000 mL, IV Infusion, 10 mL/hr PHENYLephrine 20mg / 250mL NaCL 20 mg (PHENYLephrine 20 mg / NaCL 250 mL 20 mg) ??20 mg 250 mL, IV Infusion Propofol 10mg/mL Cont IV (100mL) 1,000 mg (Propofol 1% /100 mL 1,000 mg) ??1,000 mg 100 mL, IV Infusion Sodium Chloride 0.9% 500 mL (NaCL 0.9% 500 mL) ??500 mL, Intra-arterial, 3 mL/hr Sodium Chloride 0.9% 500 mL (NaCL 0.9% 500 mL) ??500 mL, IV Infusion, 3 mL/hr PRN: (6) Dextrose Inj Syringe (Dextrose 50% Inj Syringe (25Gm)) ??12.5 Gm, IV Push Slowly, Every 20 minutes Dextrose Inj Syringe (Dextrose 50% Inj Syringe (25Gm)) ??25 Gm, IV Push Slowly, Every 15 minutes Docusate Sodium 10 mg/mL Liquid UD (Colace Liquid) ??100 mg 10 mL, By Mouth, 2 times a day Glucose 40% Gel (15 Gm) (Glucose Gel) ??15 Gm, By Mouth, Every 20 minutes Glucose 40% Gel (15 Gm) (Glucose Gel) ??30 Gm, By Mouth, Every 20 minutes NaCl 0.9% Flush 3ml (NaCL 0.9% Flush) ??3 mL, IV Push, Every 8 hours ? Results Recent Labs BLOOD COUNT & DIFF WBC 12.9 k/mm3 (High)?? 07/29/2023 14:40 RBC 4.83 m/mm3 ()?? 07/29/2023 14:40 Hgb 14.7 Gm/dL ()?? 07/29/2023 14:40 Hct 49.8 % ()?? 07/29/2023 14:40 MCV 103.1 femtoliters (High)?? 07/29/2023 14:40 MCH 30.4 pg ()?? 07/29/2023 14:40 MCHC 29.5 g/dL (Low)?? 07/29/2023 14:40 Platelet Count 273 k/mm3 ()?? 07/29/2023 14:40 RDW-SD 49.0 femtoliters (High)?? 07/29/2023 14:40 MPV 10.2 femtoliters ()?? 07/29/2023 14:40 Nucleated RBC (Automated) 0.2 #/100 WBC'S ()?? 07/29/2023 14:40 Abs. NRBC 0.0 k/mm3 ()?? 07/29/2023 14:40 Abs. Neut 2.0 k/mm3 ()?? 07/29/2023 14:40 Abs. Lymph 8.2 k/mm3 (High)?? 07/29/2023 14:40 Abs. [place] 0.6 k/mm3 ()?? 07/29/2023 14:40 Abs. Eo 1.2 k/mm3 (High)?? 07/29/2023 14:40 Abs. Baso 0.0 k/mm3 ()?? 07/29/2023 14:40 Neut % 12.2 % (Low)?? 07/29/2023 14:40 Lymph % 63.4 % (High)?? 07/29/2023 14:40 [place] % 4.3 % (Low)?? 07/29/2023 14:40 Eos % 9.6 % (High)?? 07/29/2023 14:40 Baso % 0.0 % ()?? 07/29/2023 14:40 Myelocytes % 3.5 % ()?? 07/29/2023 14:40 Metamyelocyte % 3.5 % (High)?? 07/29/2023 14:40 Band % 3.5 % ()?? 07/29/2023 14:40 RBC Morphology MODERATE ()?? 07/29/2023 14:40 Platelet Estimate ADEQUATE ()?? 07/29/2023 14:40 Hemoglobin (POC) POC Cartridge 16.0 Gm/dL ()?? 07/29/2023 14:34 Hematocrit (POC) POC Cartridge 47 % ()?? 07/29/2023 14:34 ?? BLOOD GAS pH Venous (POC) POC Cartridge 6.88 (Low)?? 07/29/2023 14:34 pCO2 Venous (POC) POC Cartridge 99.9 mm Hg (High)?? 07/29/2023 14:34 pO2 Venous (POC) POC Cartridge 46 mm Hg (High)?? 07/29/2023 14:34 Est Bicarbonate (POC) POC Cartridge 18.7 mmol/L (Low)?? 07/29/2023 14:34 % O2 Sat Venous (POC) POC Cartridge 49 ()?? 07/29/2023 14:34 Base Excess (POC) POC Cartridge NEGATIVE 14 ()?? 07/29/2023 14:34 pH 7.32 (Low)?? 07/29/2023 16:21 pCO2 52 mm Hg (High)?? 07/29/2023 16:21 pO2 78 mm Hg (Low)?? 07/29/2023 16:21 Bicarbonate, Estimated 26 mmol/L ()?? 07/29/2023 16:21 Specimen Type - Blood Gas ARTERIAL ()?? 07/29/2023 16:21 pH, Venous 6.87 (Low)?? 07/29/2023 14:40 Percent O2 (FIO2) 100 ()?? 07/29/2023 16:21 ?? CARDIAC High Sensitivity Troponin (HSTnT) HEMOLYZED ng/L ()?? 07/29/2023 16:49 ?? CHEM GENERAL Sodium 141 mmol/L ()?? 07/29/2023 16:49 Potassium 4.4 mmol/L ()?? 07/29/2023 16:49 Chloride 100 mmol/L ()?? 07/29/2023 16:49 Bicarbonate Level 16 mmol/L (Low)?? 07/29/2023 16:49 Anion Gap 25 (High)?? 07/29/2023 16:49 Sodium (POC) POC Cartridge 138 mmol/L ()?? 07/29/2023 14:34 Potassium (POC) POC Cartridge 4.3 mmol/L ()?? 07/29/2023 14:34 Glucose Level 254 mg/dL (High)?? 07/29/2023 16:49 Glucose (POC) POC Cartridge 259 (High)?? 07/29/2023 14:34 BUN 25 mg/dL (High)?? 07/29/2023 16:49 Creatinine-Blood 1.0 mg/dL ()?? 07/29/2023 16:49 Estimated GFR Creatinine 90 ML/MIN/1.73 M2 ()?? 07/29/2023 16:49 Calcium 9.5 mg/dL ()?? 07/29/2023 16:49 Ionized Calcium (POC) POC Cartridge 1.25 mmol/L ()?? 07/29/2023 14:34 Magnesium 2.6 mg/dL (High)?? 07/29/2023 14:40 Protein, Total 6.6 Gm/dL ()?? 07/29/2023 16:49 Albumin 3.9 Gm/dL ()?? 07/29/2023 16:49 AG Ratio 1.4 ()?? 07/29/2023 16:49 Alkaline Phosphatase 132 units/L (High)?? 07/29/2023 16:49 Lipase 31 units/L ()?? 07/29/2023 14:40 AST (SGOT) 282 units/L (High)?? 07/29/2023 16:49 ALT (SGPT) 370 units/L (High)?? 07/29/2023 16:49 Bilirubin, Total 0.5 mg/dL ()?? 07/29/2023 16:49 Lactate 8.6 mmol/L (Critical)?? 07/29/2023 16:49 ?? COAG INR 1.0 ()?? 07/29/2023 14:40 Protime (PT) 10.8 seconds ()?? 07/29/2023 14:40 ?? ENDOCRINE/TUMOR MARKER TSH 11.10 uIU/mL (High)?? 07/29/2023 14:40 Free T4 0.75 ng/dL ()?? 07/29/2023 14:40 ?? TOXICOLOGY/TDM Ethanol, Serum or Plasma NONE DETECTED mg/dL ()?? 07/29/2023 14:40 Salicylate Level <0.3 mg/dL (Low)?? 07/29/2023 14:40 ?? UA/URINALYSIS Appear/Color, Urine DARK BROWN ()?? 07/29/2023 15:23 Specific Kimberly, Urine 1.021 ()?? 07/29/2023 15:23 pH, Urine 6.0 ()?? 07/29/2023 15:23 Albumin, Urine 3+ (Abnormal)?? 07/29/2023 15:23 Glucose, Urine 1+ (Abnormal)?? 07/29/2023 15:23 Ketones, Urine NEGATIVE (N)?? 07/29/2023 15:23 Bilirubin, Urine NEGATIVE (N)?? 07/29/2023 15:23 Hemoglobin, Urine 3+ (Abnormal)?? 07/29/2023 15:23 Nitrite, Urine NEGATIVE (N)?? 07/29/2023 15:23 Leukocyte, Urine NEGATIVE (N)?? 07/29/2023 15:23 Urobilinogen NORMAL mg/dL (N)?? 07/29/2023 15:23 WBC's, Urine 5 /HPF ()?? 07/29/2023 15:23 RBC's, Urine 9 /HPF (High)?? 07/29/2023 15:23 Bacteria HEAVY HPF (Abnormal)?? 07/29/2023 15:23 Squamous Epith <1 /HPF ()?? 07/29/2023 15:23 Transitional Epith <1 /HPF ()?? 07/29/2023 15:23 Hyaline Cast 11 LPF (High)?? 07/29/2023 15:23 Amorphous Crystals SLIGHT /HPF ()?? 07/29/2023 15:23 Mucus SLIGHT /LPF ()?? 07/29/2023 15:23 Hold Urine Culture Testing available 48 hours from time of collection. ()?? 07/29/2023 15:23 ?? VIROLOGY Influenza A PCR NEGATIVE ()?? 07/29/2023 15:23 Influenza B PCR NEGATIVE ()?? 07/29/2023 15:23 RSV PCR NEGATIVE ()?? 07/29/2023 15:23 COVID-19 PCR Specimen Source NASAL ()?? 07/29/2023 15:23 COVID-19 PCR Result NEGATIVE ()?? 07/29/2023 15:23 ? * Rivas BARBOZA, Abhi Salvador: PERFORM Event Display: Admission Note Authored Date: [id number] Attending Attestation:??I have seen and evaluated this patient on the date of service. ??I have discussed the case and its management with the??resident and agree with the findings and plan as documented in the resident???s note.?? 48-year-old patient with known??known coronary history presented after cardiac arrest. While in the ER, had VT storm with recurrent VT??requiring multiple??defibrillation attempts despite aggressive antiarrhythmic??with amiodarone??and lidocaine.?? Did improve somewhat with addition ofbeta-poppy and then was transitioned over to procainamide. Echocardiogram done in the ER??showed LVEF??severely reduced. No significant underlying??ST elevations but with in the setting of VT storm, severely reduced LVEFwent??for cardiac catheterization which did not show any??obstructive CAD.? Right heart cath numbers did show low filling pressures so we can gently hydrate, and index is mildly reduced. ??Initial attempt for placement of IABP but this was not??functioning appropriately so eventually pulled Will??consult EP for assessment of ICD. ??Also would??likely refer patient for cardiac MRI??to further delineate??etiology of??cardiomyopathy.?? Utox is pending as well ?? Critical Care Patient??is critically ill due to the problems and diagnoses listed above, with a high probability of life-threatening deterioration or . I personally spent 45 min of non-overlapping critical care time evaluating and managing the patient, coordinating care with interventional cardiology team,??excluding time spent teaching or performing separately billable procedures. * Abel BARBOZA, Ann: PERFORM Event Display: Admission Note Authored Date: Patient overnight with several updates. ?? TSH of 11 patient started on levothyroxine. ?? Diarrhea episodes with hypokalemia thought to be secondary to that of 2.5. Received total 80 meq ofKCL 40 of which PO and 40 IV. ?? Due to ongoing fluid losses and low UO??patient received 500 cc bolus LR and was started on 500cc LR maintenance at 100 cc /hr with improvement in his UO from 0 cc/hr to 15-20/hr. He is expected to have a reduction in his UO 2/2 prerenal insult given his arrest/ his diarrhea. ?? Later through the night patient on and off low dose of phenylephrine. He is overall average HR of 105 sinus tachycardia but with two different rhythm morphologies. When he switches between rhythms hebecomes hypotensive intermittently to MAPs of 40 ??and then BP immediately improves. He is also figh ting the vent on and off. No evidence of bradycardia. Plan of care at the moment is to go up on propofol for sedation. Increase fentanyl to control for pain. He is high tolerance at baseline on methadone. Hopefully better pain control will help with his sinus tachycardia. We will also bolus 150 of amiodarone for his rhythm??as well as give an additional 500 cc fluids at 100cc/hr??to help with dehydration as another cause of his tachycardia. With all that said his diarrhea has improved. ?Nursing team aware and efforts appreciated overnight. We will continue to monitor and update planof care accordingly. ?? EKG study * Event Display: ECG 12-Lead Authored Date: Please click on pdf link to open report * Event Display: ECG 12-Lead Authored Date: Ventricular Rate: 78 BPM Atrial Rate: 78 BPM P-R Interval: 150 ms QRS Duration: 100 ms Q-T Interval: 422 ms QTC Calculation(Bazett): 481 ms P [place]: 34 degrees R [place]: 6 degrees T [place]: 132 degrees Normal sinus rhythm ST and T wave abnormality, consider lateral ischemia Abnormal ECG When compared with ECG of 05-AUG-2023 22:33, No significant change was found Confirmed by SUMMER RODRIGUEZ MD ([id number]) on 08/06/2023 4:11:46 PM [place]: SUMMER RODRIGUEZ MD * Event Display: ECG 12-Lead Authored Date: Please click on pdf link to open report * Event Display: ECG 12-Lead Authored Date: Ventricular Rate: 76 BPM Atrial Rate: 76 BPM P-R Interval: 152 ms QRS Duration: 100 ms Q-T Interval: 412 ms QTC Calculation(Bazett): 463 ms P [place]: 31 degrees R [place]: 6 degrees T [place]: 130 degrees Normal sinus rhythm ST and T wave abnormality, consider lateral ischemia Abnormal ECG When compared with ECG of 05-AUG-2023 15:04, No significant change was found Confirmed by SUMMER RODRIGUEZ MD ([id number]) on 08/06/2023 4:11:36 PM [place]: SUMMER RODRIGUEZ MD * Event Display: ECG 12-Lead Authored Date: Please click on pdf link to open report * Event Display: ECG 12-Lead Authored Date: Ventricular Rate: 68 BPM Atrial Rate: 68 BPM P-R Interval: 150 ms QRS Duration: 108 ms Q-T Interval: 460 ms QTC Calculation(Bazett): 489 ms P [place]: 22 degrees R [place]: -1 degrees T [place]: 133 degrees Normal sinus rhythm T wave abnormality, consider lateral ischemia Prolonged QT Abnormal ECG When compared with ECG of 05-AUG-2023 07:33, No significant change was found Confirmed by SUMMER RODRIGUEZ MD ([id number]) on 08/06/2023 4:10:25 PM [place]: SUMMER RODRIGUEZ MD * Event Display: EKG Authored Date: Heart * Event Display: Echocardiogram - Complete Authored Date: Transthoracic Echocardiography Report (TTE) Patient Demographics Patient Name GEE GÓMEZ, Date of Study 08/07/2023 [employer] [employer] Gender Male Facility Race Ethnicity Date of 1975 Height: 68.9 inches Age 48 year(s) Weight: 149.92 pounds Accession Number [id number] BSA: 1.83 m2 Room Number M513 BMI: 22.2 kg/m2 Referring Physician Franklin Waldron MD Interpreting Joselyn Powers MD Physician [place] Floor Desk Clerk Candy Marcos Fellow Desirae De Leon MD Indications Other. Additional Indications:Limited echo to assess for pericardial effusion s/p ICD placement Clinical History Cocaine use V-tach arrest s/p ICD (08/06/23) Study Data Type of Study TTE procedure:Echo 2D Limited or Follow-up. Study Date08/07/2023 Start Time: 11:10 AM Study Location[place] [facility] [place] Study Status: Bedside Patient Status: LEON Technical Quality: Fair Blood Pressure:108/55 mmHg EKG: Normal sinus rhythm HR: 76 bpm Allergies - No known allergies. 2D Measurements LV Diastolic Dimension: 5.97 cm LV Septum Diastolic: 0.97 cm LV PW Diastolic: 1.2 cm Cardiac Anatomy Left Ventricle/Interventricular Septum Limited study. The left ventricle is mildly dilated. Left ventricular wall thickness is mildly increased asymmetrically. The LV systolic function is moderately to severely reduced with regional wall motion variation. Right Ventricle The right ventricle is normal in size. Venous Structures The inferior vena cava is normal in size with normal inspiratory collapse. Estimated CVP is normal at 3 mmHg. Pericardium/Extracardiac There is no significant pericardial effusion. Summary The LV systolic function is moderately to severely reduced with regional wall motion variation. There is no significant pericardial effusion. Signature * Event Display: Echocardiogram - Complete Authored Date: * Event Display: Echocardiogram - Complete Authored Date: Transthoracic Echocardiography Report (TTE) Patient Demographics Patient Name GEE GÓMEZ, Date of Study 08/04/2023 [place] Gender Male [facility] Race Ethnicity Date of 1975 Height: 68.9 inches Age 48 year(s) Weight: 149.92 pounds Accession Number [id number] BSA: 1.83 m2 Room Number M513 BMI: 22.2 kg/m2 Referring Physician Franklin Waldron MD Interpreting Andi Jacob MD Physician [place] Floor Desk Clerk Daryn Li Fellow Hilario Heller DO Indications Heart failure. Clinical History Coronary artery disease. Cardiac Arrest 07/29/2023 Study Data Type of Study TTE procedure:Echo Complete-Doppler, Colorflow, M-Mode. Study Date08/04/2023 Start Time: 01:11 PM Study Location: [facility] [place] Study Status: Bedside Patient Status: Routine Technical Quality: Technically difficult due to poor acoustical window. Blood Pressure:104/82 mmHg EKG: Normal sinus rhythm HR: 84 bpm Allergies - No known allergies. 2D Measurements LV Diastolic Dimension: 6.18 cm LV Systolic Dimension: 4.9 cm LV Septum Diastolic: 1.31 cm LV PW Diastolic: 1.27 cm AO Root Dimension: 3.3 cm RV Diastolic Dimension: 3.94 cm LA Dimension: 4.4 cm LA ESV (BP):99.36 ml LVOT Stroke Volume: 81.43 ml LA ESV Index: 54 ml/m2 Stroke Volume Index44.5 ml/m2 LVOT: 2.77 cm Cardiac Index:3.74 l/min/m2 Ascending Aorta:3 cm Doppler Measurements AV Peak Velocity: 155 cm/s MV Peak E-Wave: 71.7 cm/s AV Peak Gradient: 9.61 mmHg MV Peak A-Wave: 81.6 cm/s AV Mean Gradient: 6 mmHg MV E/A Ratio: 0.88 AV VTI:24.4 cm MV P1/2t: 62 msec LVOT Peak Velocity: 95.8 cm/s LVOT VTI13.52 cm MV Deceleration Time: 212 msec AV Area (Continuity):3.34 cm2 MV Area (PHT): 3.55 cm2 PV Peak Velocity: 146 cm/s PV Peak Gradient: 8.53 mmHg E' Septal Velocity: 5.87 cm/s E' Lateral Velocity: 5.44 cm/s E/Med E':12.38619 E/Lat E':13.22552 Cardiac Anatomy Left Ventricle/Interventricular Septum The left ventricle is severely dilated. The left ventricular wall thickness is moderately increased. The LV systolic function is severely reduced . The left ventricular ejection fraction is 20-25 %. There is severe global hypokinesis with regional variation. Grade II, moderate diastolic dysfunction with pseudonormal LV filling pattern and increased LA pressure. Left Atrium/Interatrial Septum The left atrium is severely dilated. Aortic Valve The aortic valve is trileaflet. The aortic valve appears mildly calcified. There is no aortic regurgitation. There is no aortic stenosis. Mitral Valve The mitral valve appears mildly thickened. There is mild mitral regurgitation. Aorta The ascending aorta and aortic root are normal in size. Right Ventricle The right ventricle is normal in size. Right ventricular systolic function is moderately reduced. Right Atrium The right atrium is dilated. Pulmonic Valve The pulmonic valve appears grossly normal. There is moderate pulmonic regurgitation. Tricuspid Valve The tricuspid valve is grossly normal. There is trace tricuspid valve regurgitation. Pumonary Artery An accurate pulmonary artery pressure could not be obtained. Venous Structures The inferior vena cava is mildly dilated with poor inspiratory collapse consistent with elevated right atrial pressures. Pericardium/Extracardiac There is no pericardial effusion. Summary The left ventricle is severely dilated. The left ventricular wall thickness is moderately increased. The LV systolic function is severely reduced . The left ventricular ejection fraction is 20-25 %. There is severe global hypokinesis with regional variation. Grade II, moderate diastolic dysfunction with pseudonormal LV filling pattern and increased LA pressure. The left atrium is severely dilated. The mitral valve appears mildly thickened. There is mild mitral regurgitation. The right ventricle is normal in size. Right ventricular systolic function is moderately reduced. The inferior vena cava is mildly dilated with poor inspiratory collapse consistent with elevated right atrial pressures. Comparison Comparison is made to the study of July 30, 2023. Stroke volume is significantly increased. Signature * Event Display: Echocardiogram - Complete Authored Date: * Event Display: Echocardiogram - Complete Authored Date: [id number] Transthoracic Echocardiography Report (TTE) Patient Demographics Patient Name GEE GÓMEZ, Date of Study 07/30/2023 [facility] Gender Male Facility Race Ethnicity Date of 1975 Height: 68.9 inches Age 48 year(s) Weight: 149.92 pounds Accession Number [id number] BSA: 1.83 m2 Room Number [id number] BMI: 22.2 kg/m2 Referring Physician Abel Juarez MD Interpreting Physician TAMRA Lowe [place] Floor Desk Clerk Sydnee Gibson RCS Indications Hypotension. Clinical History Polysubstance abuse GERD Study Data Type of Study TTE procedure:Echo Complete-(Doppler, Colorflow) with Contrast. Procedure Information:Definity was administered by RN . TDS, rib artifact Study Date07/30/2023 Start Time: 05:46 AM Study Location: [facility] [place] Study Status: ICU/CCU Patient Status: Routine Technical Quality: Technically difficult due to patient on ventilator. Blood Pressure:119/72 mmHg EKG: Sinus tachycardia HR: 104 bpm Contrast Medium: Definity. Amount - 2 ml Allergies - No known allergies. 2D Measurements LV Diastolic Dimension: 5.5 cm LV Systolic Dimension: 5.2 cm LV Septum Diastolic: 0.9 cm LV PW Diastolic: 1.1 cm AO Root Dimension: 2.9 cm LA Dimension: 2.8 cm LVOT Stroke Volume: 26.14 ml LVOT: 2.2 cm Stroke Volume Index14.28 ml/m2 Ascending Aorta:2.5 cm Cardiac Index:1.49 l/min/m2 Doppler Measurements AV Peak Velocity: 81.3 cm/s MV Peak E-Wave: 57.2 cm/s AV Peak Gradient: 2.64 mmHg MV Peak A-Wave: 70.6 cm/s MV E/A Ratio: 0.81 LVOT Peak Velocity: 62.3 cm/s MV P1/2t: 42 msec LVOT VTI6.88 cm MV Deceleration Time: 144 msec TR Velocity:230 cm/s MV Area (PHT): 5.24 cm2 TR Gradient:21.16 mmHg Estimated RAP:8 mmHg PV Peak Velocity: 62.7 cm/s Estimated RVSP: 29.2 mmHg PV Peak Gradient: 1.57 mmHg E' Septal Velocity: 6.42 cm/s E' Lateral Velocity: 5.66 cm/s E/Med E':[id number] E/Lat E':10.45972 Cardiac Anatomy Left Ventricle/Interventricular Septum The left ventricle is moderately to severely dilated. Left ventricular wall thickness is normal. The LV systolic function is severely reduced . The left ventricular ejection fraction is visually estimated at 10-15 %. There is severe global hypokinesis with regional variation. Basal wall motion is relatively preserved as compared to the mid and apical segments. Indeterminate diastolic function. There is increased left ventricular apical trabeculation. There is no evidence of LV thrombus with echo contrast, although visualization of the apex was suboptimal. The left ventricular stroke-volume and cardiac indices are severely reduced. Left Atrium/Interatrial Septum The left atrium is normal in size. Aortic Valve The aortic valve is poorly visualized. No significant aortic stenosis or regurgitation. Mitral Valve The mitral valve is mildly thickened. There is trace mitral regurgitation. Aorta The ascending aorta and aortic root are normal in size. Right Ventricle The right ventricle is normal in size and systolic function. Right Atrium The right atrium is normal in size. Pulmonic Valve The pulmonic valve is poorly visualized. Tricuspid Valve The tricuspid valve is poorly visualized. Pumonary Artery The pulmonary artery systolic pressure estimation is normal, 29 mmHg. Venous Structures The inferior vena cava size is normal with blunted inspiratory collapse. The central venous pressure estimation is mildly elevated, 8mmHg. Pericardium/Extracardiac There is no pericardial effusion. Summary The left ventricle is moderately to severely dilated. Left ventricular wall thickness is normal. The LV systolic function is severely reduced . The left ventricular ejection fraction is visually estimated at 10-15 %. There is severe global hypokinesis with regional variation. Basal wall motion is relatively preserved as compared to the mid and apical segments. There is no evidence of LV thrombus with echo contrast, although visualization of the apex was suboptimal. The left ventricular stroke-volume and cardiac indices are severely reduced. The right ventricle is normal in size and systolic function. No obvious valve dysfunction on available images. The central venous pressure estimation is mildly elevated, 8mmHg. The pulmonary artery systolic pressure estimation is normal, 29 mmHg. Comparison Comparison is made to the study of July 29, 2023. No definite significant change. Signature * Event Display: Echocardiogram - Complete Authored Date: [id number] Cardiology * Event Display: Cardiac Rhythm Strips Authored Date: [id number] * Event Display: Cardiac Rhythm Strips Authored Date: Laboratory * Event Display: Point of Care Reference Ranges Authored Date: Hospital Progress note * Nisha BARBOZA, Aiden Baird: PERFORM Event Display: Progress Note Hospital Authored Date: This patient was seen today by me at 10:33 AM. He was seen with an official hospital roller picker for Lebanese. 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 The patient was in good spirits today. He continues to recuperate from the ICD procedure couple of days ago. No cardiac issues that he is aware of. The cardiology team are considering discharge back to the retirement today. No other new complaints today. Yesterday he received 50 mg of methadone in the morning and 20 mg later in the day. That is doing better but he still feels the need for higher dosing. As a reminder he had been on 75 mg in the past. He understands it may take some time to get back close to that dose. It has been cleared with the cardiology attending about continue to make dose adjustments as appropriate over time. On exam patient appeared awake alert. In much better spirits. Smiling. Very animated. Temperature today 98 heart rate 73 respiratory 17 blood pressure 168 O2 sat 94% on room air No obvious intoxication no obvious withdrawal not at all restless. He seems to be in good spirits. Laboratory studies from today reviewed: White count up to 12,900 H&H 11 and 36 which are better platelet count good electrolytes good renal numbers good sugar 108 Assessment and plan: This patient is admitted to the cardiology service because of the cardiac arrest and V. tach. He has also had prolongation of QTc intermittently. He has been on methadone at much higher doses previously. At the moment he still not on ideal dosing but we are gradually titrating up. He is now postoperative day 2 after the ICD placement. Cardiology is okay with further upward titration of methadone. For today, the recommendations would be to increase the methadone dose slightly by 5 mg to a total daily dose of 40 mg. As he already got 50 mg this morning and will get 20 mg this evening, he could get another 5 mg anytime today. Beginning tomorrow he can simply get 20 mg twice daily. At the retirement if they are unable to accommodate twice daily dosing, it is perfectly okay to just go to once a day dosing with the 40 mg being given altogether in the morning. In order to ensure that he gets the full dose today, if the patient does get discharged to retirement later today, I would just go ahead and give him the rest of the 25 mg that we intend him to get before he leaves the building today. I would still recommend frequent EKGs to check QTc. Since he will be going to the retirement when he leaves here, there is nothing that we would set up from here in terms of methadone clinic. The retirement medical team will work on that at the time of his discharge from the retirement whenever that is. . The addiction consultation service will continue to follow this patient with you, see him again on 08/11/2023, if he stays in the hospital and is not discharged back to the retirement.. I did communicate my thoughts recommendations today to Dr. Eason of the primary team. * Nevin Cuello RN: VERIFY, PERFORM, SIGN Event Display: Progress Note Hospital Authored Date: Patient: LARON HUNTER Age: 48 years Sex: Male : 1975 Associated Diagnoses: None Author: Nevin Cuello RN Findings Problem Related to Alteration in Cardiac Function (new) : Alteration in Cardiac Function/new 08/08/2023 10:00 EDT Alteration in Cardiac Status Related to ACS, Cardiac Procedure, Dysrhythmia, Heart failure, Other: ICD Goals & Outcomes, Cardiac Status Pt will resume/maintain adequate cardiac output, Pt will resume/maintain adequate hemodynamic status, Pt will resume/maintain adequate respiratory function, Pt will resume/maintain intact neuro function, Pt will maintain adequate GI/ function appropriate for pt, Pt will maintain adequate nutrition status, Resolved problem, Goals/Outcomes met, Pt will convertto a stable rhythm, Heart rate control/rhythm is maintained Cardiac Interventions Implemented Assess/monitor cardiac status, Assess/monitor neuro status, Assess/monitor respiratory status, Assess for tolerance of IV infusions; verify rate & dose, Call/Report variances in ECG to provider, Document & Monitor O2 Sats; Administer O2 as ordered, Ensure adequate caloric intake, If no bowel movement in 3 days activate bowel regime, Monitor & document daily weight, Monitor anticoagulation values, Monitor ECG w/administration of antiarrhythmics (CO 13.420), Obtain 12 Lead ECG and CXR as ordered, Prep pt for treatments & procedures, Teach/encourage deep breath & cough exercises, Teach/encourage use of incentive spirometer, Team conversation regarding appropriate level of care, Turn & reposition Q2 hours per activity restrictions, Useadjunctive therapies per Standards of Practice, Resolved problem; interventions no longer in effect BH Goals/Interventions, Cardiac Yes Cardiac, Problem Start 07/30/2023 21:00 Reviewed Plan with, Cardiac Status Patient Patient Progression, Cardiac Status Resolved problem Cardiac, Problem Resolved 08/06/2023 18:30 . Nursing Data Vital Signs : VITAL SIGNS SECTION 08/08/2023 10:15 EDT Temperature 98 DegF Temperature Route Oral Pulse Rate 83 bpm Respiratory Rate 18 br/min Systolic Blood Pressure 102 mm Hg Diastolic Blood Pressure 59 mm Hg Blood pressure sites Arm, right Mean Arterial Pressure 73 mm Hg Pulse Pressure 43 mm Hg Oxygen Saturation 96 % Mode of Delivery (Oxygen) Room air . Narrative/Incidental Guard at bedside throughout shift. A&Ox4, calm and cooperative. Pt speaking [place] and Lebanese. Pt c/o 04/14 rib pain, methadone administered as ordered w/ positive effects. LS CTA, remains on RA. No edema present, +PP. 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 Pt is continent of both urine and stool. +BSx4, abd soft/nontender and last BM 08/07. Pt is tolerating PO intake. Skin C/D/I. R FA IV patent, IV Lasix andMg replaced in AM. Pt ambulates w/ 1 assist. Pt now resting comfortably, call fernandez within reach, bed alarm on and safety maintained. . Discharge Information Rehabilitation Discharge : Rehab Discharge Index 08/07/2023 14:59 EDT Comments on treatment indicated Pt demo good understanding of precautions related to AICD implant. Remains safe and independent with basic mobility and is cleared for discharge from functional standpoint. Cane: distance 200 ft no AD Full chart review completed Yes Hospital course 08/06: AICD implant Other findings Pt educated in Lebanese for pacer precautions and demo good understanding. Pt able toperform basic mobility safely w/o need of device. After walking ~150 pt began to limp due to old ankle injury, given ice upon freturn to room. Cleared for d/c * Kendra Hagan RN: PERFORM, SIGN, VERIFY Event Display: Progress Note Hospital Authored Date: Patient: LARON HUNTER Age: 48 years Sex: Male : 1975 Associated Diagnoses: None Author: Kendra Hagan RN Findings Problem Related to Alteration in Cardiac Function (new) : Alteration in Cardiac Function/new 08/08/2023 0:00 EDT Alteration in Cardiac Status Related to ACS, Cardiac Procedure, Dysrhythmia, Heart failure, Other: ICD Goals & Outcomes, Cardiac Status Pt will resume/maintain adequate cardiac output, Pt will resume/maintain adequate hemodynamic status, Pt will resume/maintain adequate respiratory function, Pt will resume/maintain intact neuro function, Pt will maintain adequate GI/ function appropriate for pt, Pt will maintain adequate nutrition status, Pt will convert to a stable rhythm, Heart rate control/rhythm is maintained Cardiac Interventions Implemented Assess/monitor cardiac status, Assess/monitor neuro status, Assess/monitor respiratory status, Assess for tolerance of IV infusions; verify rate & dose, Call/Report variances in ECG to provider, Document & Monitor O2 Sats; Administer O2 as ordered, Ensure adequate caloric intake, If no bowel movement in 3 days activate bowel regime, Monitor & document daily weight, Monitor anticoagulation values, Monitor ECG w/administration of antiarrhythmics (CO 13.420), Obtain 12 Lead ECG and CXR as ordered, Prep pt for treatments & procedures, Teach/encourage deep breath & cough exercises, Teach/encourage use of incentive spirometer, Team conversation regarding appropriate level of care, Turn & reposition Q2 hours per activity restrictions, Useadjunctive therapies per Standards of Practice Goals/Interventions, Cardiac Yes Cardiac, Problem Start 07/30/2023 21:00 Reviewed Plan with, Cardiac Status Patient Patient Progression, Cardiac Status Resolved problem Cardiac, Problem Resolved 08/06/2023 18:30 . Nursing Data (Pt. is A&O x4. Is on tele in NSR. Has sternal and rib pain from CPR that is reproducable. Denies any SOB, dizziness, N/V. Is post ICD placement site is CDI no brusing, swelling or redness. Lungs are clear on RA. +BS, +pulses, no edema is a standby assist. Officer in room. bed is locked in lowest position with call fernandez in reach.) Discharge Information Rehabilitation Discharge : Rehab Discharge Index 08/07/2023 14:59 EDT Comments on treatment indicated Pt demo good understanding of precautions related to AICD implant. Remains safe and independent with basic mobility and is cleared for discharge from functional standpoint. Cane: distance 200 ft no AD Full chart review completed Yes Hospital course 08/06: AICD implant Other findings Pt educated in Lebanese for pacer precautions and demo good understanding. Pt able toperform basic mobility safely w/o need of device. After walking ~150 pt began to limp due to old ankle injury, given ice upon freturn to room. Cleared for d/c Patient Care team information Care Team Personnel Name: Veda Vazquez RN Position: [facility] RN Member Role: Primary Care Nurse Name: Dana Dodd Position: [facility] RN Supv Member Role: Primary Care Nurse Name: Mary King RN Position: [facility] RN Member Role: Primary Care Nurse Name: Kendra Hagan RN Position: [facility] RN Member Role: Primary Care Nurse Name: Karime Bailey Position: [facility] RN Supv Member Role: Primary Care Nurse Name: Not on Staff, PCP Position: [facility] Physician (General Medicine) Member Role: PCP Name: Sina Robles Position: [facility] RN Member Role: Primary Care Nurse Name: Cristy ALANIS Attending Position: [facility] ED Medicine MD Name: Tika Jernigan Position: [facility] ED TA [facility] Member Role: Combat Systems Engineer Name: Swapna Drummond Position: [facility] ED OA Charge Member Role: ED Associate Name: Delmis Redding RN Position: [facility] ED RN W/OE and Tasks Member Role: Patient Care Provider Care Team Related Persons Name: ELISE DELGADO Address: home [address] [place] [id number] Name: ELISE MONTERO Address: home [address] [place] [address]
--- OUTSIDE RECORDS SUMMARY | 2024-09-06 10:43 | XMS_ITS | Continuity of Care Document ---
Author Organization [facility] Address [address] [place] [address]- Care Team Providers Care Collection Card Clerk Name Role Phone Not on Staff, PCP Primary Care Physician Unavail able [place]counter [facility] [place]): 09/16/23 - 10/31/23 [facility] [address] [place] [id number]- Attending Physician: Stone Santos MD Admitting Physician: Stone Santos MD Allergies, Adverse Reactions, Alerts No Known Medication Allergies Medications amiodarone 200 mg oral tablet 400 mg, By Mouth, Daily, # 90 tablet, Refills 3, Tot. Refills 3, Maintenance, 08/25/23 15:55:00 EST, Route to Pharmacy Electronically, [facility] #[id number], Partial fill upon patient request if the prescription is for a schedule II opioid drug., 175, cm... Start Date: 08/25/23 Stop Date: 08/19/24 Status: Ordered carvedilol 12.5 mg oral tablet 12.5 mg, 1, tablet, By Mouth, 2 times a day, # 60 tablet, Refills 3, Tot. Refills 3, Maintenance, 08/19/23 12:23:00 EST, Route to Pharmacy Electronically, [facility]/pharmacy #[id number], Partial fill upon patient request if the prescription is for a schedule II o... Start Date: 08/19/23 Status: Ordered Lasix 20 mg oral tablet 20 mg, 1, tablet, By Mouth, Daily, # 90 tablet, Refills 3, Tot. Refills 3, Maintenance, 08/25/23 15:55:00 EST, Route to Pharmacy Electronically, [facility]/pharmacy #[id number], Partial fill upon patient request if the prescription is for a schedule II opioid drug... Start Date: 08/25/23 Stop Date: 08/19/24 Status: Ordered levothyroxine 75 mcg (0.075 mg) oral tablet = 75 mcg, By Mouth, Daily, # 90 each, 0 Refills, Maintenance, 08/08/23 10:10:00 EDT, Tablet, [facility], Partial fill upon patient request if [...] opioid drug. Start Date: 07/29/23 Status: Ordered valsartan 40 mg oral tablet 40 mg, By Mouth, 2 times a day, # 90 each, Refills 3, Tot. Refills 3, Maintenance, 08/25/23 15:56:00 EST, Route to Pharmacy Electronically, [facility]/pharmacy #[id number], Partial fill upon patient request if the prescription is for a schedule II opioid drug., 17... Start Date: 08/25/23 Stop Date: 08/19/24 Status: Ordered Patient Care team information Care Team Personnel Name: Veda Vazquez RN Position: S RN Member Role: Primary Care Nurse Name: Dana Dodd Position: S RN Supv Member Role: Primary Care Nurse Name: Mary King RN Position: S RN Member Role: Primary Care Nurse Name: Kendra Hagan RN Position: S RN Member Role: Primary Care Nurse Name: Karime Bailey Position: S RN Supv Member Role: Primary Care Nurse Name: Not on Staff, PCP Position: [facility] Physician (General Medicine) Member Role: PCP Name: Sina Robles Position: S RN Member Role: Primary Care Nurse Care Team Related Persons Name: ELISE DELGADO Address: home [address] [place] [id number] Name: ELISE MONTERO Address: home [address] [place] [address]
--- OUTSIDE RECORDS SUMMARY | 2024-09-06 10:43 | XMS_ITS | Continuity of Care Document ---
Author Organization [facility] Address [address] [place] [address]- Care Team Providers Care Artist Suspect Name Role Phone Not on Staff, PCP Primary Care Physician Unavail able Encounter [facility] [place]): 08/19/23 - 09/18/23 [facility] [address] [place] [address]- [place] Allergies, Adverse Reactions, Alerts No Known Medication Allergies Medications amiodarone 200 mg oral tablet 400 mg, By Mouth, Daily, # 90 tablet, Refills 3, Tot. Refills 3, Maintenance, 08/25/23 15:55:00 EST, Route to Pharmacy Electronically, [facility]/pharmacy #[id number], Partial fill upon patient request if the prescription is for a schedule II opioid drug., 175, cm... Start Date: 08/25/23 Stop Date: 08/19/24 Status: Ordered carvedilol 12.5 mg oral tablet 12.5 mg, 1, tablet, By Mouth, 2 times a day, # 60 tablet, Refills 3, Tot. Refills 3, Maintenance, 08/19/23 12:23:00 EST, Route to Pharmacy Electronically, [facility] #[id number], Partial fill upon patient request if the prescription is for a schedule II o... Start Date: 08/19/23 Status: Ordered Lasix 20 mg oral tablet 20 mg, 1, tablet, By Mouth, Daily, # 90 tablet, Refills 3, Tot. Refills 3, Maintenance, 08/25/23 15:55:00 EST, Route to Pharmacy Electronically, [facility]/pharmacy #[id number], Partial fill upon patient request if the prescription is for a schedule II opioid drug... Start Date: 08/25/23 Stop Date: 08/19/24 Status: Ordered levothyroxine 75 mcg (0.075 mg) oral tablet = 75 mcg, By Mouth, Daily, # 90 each, 0 Refills, Maintenance, 08/08/23 10:10:00 EDT, Tablet, [facility], Partial fill upon patient [...] 08/25/23 15:56:00 EST, Route to Pharmacy Electronically, [facility]/pharmacy #[id number], Partial fill upon patient request if the prescription is for a schedule II opioid drug., 17... Start Date: 08/25/23 Stop Date: 08/19/24 Status: Ordered Patient Care team information Care Team Personnel Name: Veda Vazquez RN Position: [facility] RN Member Role: Primary Care Nurse Name: Dana Dodd Position: [facility] RN Supv Member Role: Primary Care Nurse Name: Mary King RN Position: S RN Member Role: Primary Care Nurse Name: Kendra Hagan RN Position: S RN Member Role: Primary Care Nurse Name: Karime Bailey Position: S RN Supv Member Role: Primary Care Nurse Name: Not on Staff, PCP Position: [facility] Physician (General Medicine) Member Role: PCP Name: Sina Robles Position: S RN Member Role: Primary Care Nurse Care Team Related Persons Name: ELISE DELGAOD Address: home [address] [place] [id number] Name: ELISE MONTERO Address: home [address] [place] [id number]
--- OUTSIDE RECORDS SUMMARY | 2024-09-06 10:43 | XMS_ITS | Continuity of Care Document ---
Author Organization [facility] ter Address [address] [place] [id number] Care Team Providers Care Supervisor Component Assembler Name Role Phone Not on Staff, PCP Primary Care Physician Unavail able Encounter [facility] Date(s): 12/01/23 - 12/01/[address] [address] Discharge Disposition: A-D/C Home Attending Physician: Hallie Srinivasan MD Admitting Physician: Beatrice Marshall MD Referring Physician: Not on Staff, Referring MD Allergies, Adverse Reactions, Alerts No Known Medication Allergies Medications amiodarone 200 mg oral tablet 400 mg, By Mouth, Daily, # 90 tablet, Refills 3, Tot. Refills 3, Maintenance, 08/25/23 15:55:00 EST, Route to Pharmacy Electronically, [facility]/pharmacy #[id number], Partial fill upon patient request if the prescription is for a schedule II opioid drug., 175, cm... Start Date: 08/25/23 Stop Date: 08/19/24 Status: Ordered carvedilol 12.5 mg oral tablet 12.5 mg, 1, tablet, By Mouth, 2 times a day, # 60 tablet, Refills 3, Tot. Refills 3, Maintenance, 08/19/23 12:23:00 EST, Route to Pharmacy Electronically, [facility]/pharmacy #[id number], Partial fill upon patient request if the prescription is for a schedule II o... Start Date: 08/19/23 Status: Ordered carvedilol 12.5 mg oral tablet 12.5 mg, Tablet, By Mouth, 12/01/23 10:51:00 EST Start Date: 12/01/23 Stop Date: 12/01/23 Status: Completed Lasix 20 mg oral tablet 20 mg, 1, tablet, By Mouth, Daily, # 90 tablet, Refills 3, Tot. Refills 3, Maintenance, 08/25/23 15:55:00 EST, Route to Pharmacy Electronically, [facility]/pharmacy #[id number], Partial fill upon patient request if the prescription is for a schedule II opioid drug... Start Date: 08/25/23 Stop Date: 08/19/24 Status: Ordered levothyroxine 75 mcg (0.075 mg) oral tablet = 75 mcg, By Mouth, Daily, # 90 each, 0 Refills, Maintenance, 08/08/23 10:10:00 EDT, Tablet, [facility], Partial fill upon patient request if the prescription is for a schedule II opioid drug., 175, cm, 08/08/23 4:31:00 EDT, Height Start Date: 08/08/23 Stop Date: 11/06/23 Status: Ordered Results Radiology Reports * Exam Date Time Procedure Performing Provider Status 12/01/23 3:23 AM Chest 2 Views Frontal and Lat Junior Santos (Verified) Notes: (Chest 2 Views Frontal and Lat) Reason For Exam: Shortness of Breath RESULT: Chest 2 Views Frontal and Lat Examination: Chest performed on 12/01/2023. History: Worsening chest pain. Findings: Frontal and lateral views of the chest are compared to a prior study dated 08/07/2023. Pacer is present. There are stable enlargement of the cardiac silhouette. The lungs are clear. The osseous and soft tissue structures are unremarkable. Impression: There is no acute cardiopulmonary disease. WSN: [id number] Ordering Physician: Elvia Matute Dictated By: Tatiana Donald MD Dictated Date/Time: 12/01/23 7:54 am Reviewed By: Tatiana Donald MD Signed By: Tatiana Donald MD Signed Date/Time: 12/01/23 7:54 am Transcribed By: MIGUEL Transcribed Date/Time: 12/01/23 7:54 am Vital Signs Most recent to oldest [Reference Range]: 1 2 3 Oxygen Saturation [94-100 %] 99 % (12/01/23 2:14 PM) 100 % (12/01/23 10:18 AM) 100 % (12/01/23 9:09 AM) Pulse Rate [55-90 bpm] 64 bpm (12/01/23 2:14 PM) 62 bpm (12/01/23 11:01 AM) 62 bpm (12/01/23 10:18 AM) Blood Pressure [90-138/55-84 mm Hg] 139/73mm Hg *H* (12/01/23 2:14 PM) 148/81mm Hg *H* (12/01/23 11:01 AM) 148/81mm Hg *H* (12/01/23 10:18 AM) Respiratory Rate [16-30 br/min] 20 br/min (12/01/23 2:14 PM) 20 br/min (12/01/23 10:18 AM) 20 br/min (12/01/23 9:09 AM) Temperature [96.8-100.4 DegF] 98.0 DegF (12/01/23 2:14 PM) 98 DegF (12/01/23 10:18 AM) 98.0 DegF (12/01/23 9:09 AM) Mode of Delivery (Oxygen) Room air (12/01/23 2:14 PM) Room air (12/01/23 10:18 AM) Room air (12/01/23 9:09 AM) Blood pressure sites Arm, left (12/01/23 2:14 PM) Arm, left (12/01/23 10:18 AM) Arm, right (12/01/23 9:09 AM) Temperature Route Oral (12/01/23 2:14 PM) Oral (12/01/23 10:18 AM) Oral (12/01/23 9:09 AM) History and physical note * Craig BARBOZA, Hallie: PERFORM, MODIFY, MODIFY Event Display: History and Physical Hospital Authored Date: Patient: ??LARON HUNTER ? Age:??48 Years?Sex:??Male?:??1975?? Chief Complaint/Reason for Consultation CP History of Present Illness 48-year-old male with past medical history of cocaine and heroin use, status post VT arrest and nowwith AICD, congestive heart failure presented to ED for the evaluation of chest pain ?? Patient told me that for past several days he has been having constant chest pain at site of AICD, sharp in nature, 03/15 with no radiation.?? No particular aggravating or relieving factor.?? Pain is there all the time.?? Denies any shortness of breath, nausea, vomiting.?? No numbness, tingling or focal weakness. ?? No fever or chills.?? No redness of the skin ?? Past medical history: History of cocaine and heroin use.?? History of VT arrest.?? History of systolic congestive heart failure, hypothyroidism ?? Social history: Positive for smoking 2 packs/day.?? Denies any alcohol abuse but admits to using heroin and crack cocaine.?? Last use was 10 days ago ?? Family history: Mother with history of coronary artery disease Review of Systems ROS: All systems reviewed and negative except as in HPI ?? Objective Vital Signs?? Temperature: 98 DegF (12/01/23 10:18:00) Temperature Route: Oral (12/01/23 10:18:00) Pulse Rate: 62 bpm (12/01/23 10:18:00) Respiratory Rate: 20 br/min (12/01/23 10:18:00) Vented: No (12/01/23 06:30:00) Systolic Blood Pressure:??148 mm Hg??High (12/01/23 10:18:00) Diastolic Blood Pressure: 81 mm Hg (12/01/23 10:18:00) Blood pressure sites: Arm, left (12/01/23 10:18:00) Mean Arterial Pressure: 103 mm Hg (12/01/23 10:18:00) Pulse Pressure: 67 mm Hg (12/01/23 10:18:00) Oxygen Saturation: 100 % (12/01/23 10:18:00) Mode of Delivery (Oxygen): Room air (12/01/23 10:18:00) Early Warning Score: 0 (12/01/23 10:19:48) ? Physical Exam LVN LPN: AA0 3, no focal motor or sensory deficit, cranial nerves II to XII intact CVS: RRR, S1, S2, No gallop, murmur or rub Resp: b/l good air entry, no wheezing or rhales, CTA b/l GI: Soft, NT, ND, BS +ve EXT: no pedal edema Skin: no rash Neck: supple,?? Eyes: PERRLA, EOMI?? Head: atraumatic, normocephalic ENMT: moist mucus membranes, nares patent with no discharge Musculoskeletal: no joint tenderness, swelling or limitation of movement ?? Assessment/Plan ?? 48-year-old male with past medical history of cocaine and heroin use, status post VT arrest and nowwith AICD, congestive heart failure presented to ED for the evaluation of chest pain ? Chest pain History of VT arrest s/p??AICD History of systolic congestive heart failure ?? Patient presents with chest pain. ??Seems atypical. ??Pulmonary embolism unlikely.?? At the site ofAICD but no sign or symptom of cellulitis Troponin??stable AICD interrogation without any acute event Monitor on telemetry Aspirin Symptomatic management Monitor for recurrence of symptoms Cardiology consult has been placed. ??Will follow-up recommendation Continue patient on carvedilol??amiodarone??and Lasix ?? History of hypothyroidism: Levothyroxine ?? History of smoking: Counseling. ??Nicotine patch ?? History of cocaine??and heroin use. ??Counseling has been done in detail ?? Anemia: PCP follow-up and workup ?? DVT prophylaxis: Pneumoboots ?? CODE STATUS: Full Histories Allergies Allergies ?(Active and Proposed Allergies Only) No Known Medication Allergies? (Severity: Unknown severity, Onset: Unknown) ? Medications Home Medications amiODARONE (amiodarone 200 mg oral tablet)?400?Milligram?By Mouth??twice??Daily?for 90?Days Carvedilol (carvedilol 12.5 mg oral tablet)?12.5?Milligram?1?tablet?By Mouth?2 times a day Furosemide (Lasix 20 mg oral tablet)?20?Milligram?1?tablet?By Mouth?Daily?for 90?Days Levothyroxine (levothyroxine 75 mcg (0.075 mg) oral tablet)?75?Microgram?By Mouth?Daily?for 90?Days ? Results ? CBC, CBC w/Diff?? CBC?? Differential?? WBC: 10.5 k/mm3 () Abs. Neut: 5 k/mm3 () RBC:??3.8 m/mm3??Low () Abs. Lymph: 2.6 k/mm3 () Hct:??35.8 %??Low () Abs. [place]: 0.8 k/mm3 () RDW-SD:??54.4 femtoliters??High () Abs. Eo:??1.8 k/mm3??High () Nucleated RBC (Automated): 0 #/100 WBC'S () Abs. Baso: 0.1 k/mm3 () Abs. NRBC: 0 k/mm3 () Neut %: 48 % () ?? Lymph %: 25.1 % () ?? [place] %: 8 % () ?? Eos %:??17.1 %??High () ?? Baso %: 0.6 % () ?? Imm Gran: 1.2 % () ?? Abs. Imm Gran: 0.1 k/mm3 () ? BMP, Mg, and Phos Anion Gap: 10 (:54) Bicarbonate Level: 24 mmol/L (:54) BUN: 12 mg/dL () Chloride: 107 mmol/L (:54) Creatinine-Blood: 0.8 mg/dL () Estimated GFR Creatinine: 110 ML/MIN/1.73 M2 () Glucose Level: 98 mg/dL (:) Potassium: 4.3 mmol/L (:54) Sodium: 141 mmol/L (:54) ?? Coagulation Profile INR: 1 () Protime (PT): 10.3 seconds (01:32) ?? LFT Protime (PT): 10.3 seconds (01:32) ?? Urinalysis Albumin, Urine: TRACE Abnormal (02:20) Amorphous Crystals: SLIGHT (02:20) Appear/Color, Urine: LIGHT YELLOW (02:20) Bilirubin, Urine: NEGATIVE (02:20) Glucose, Urine: NEGATIVE (02:20) Hemoglobin, Urine: NEGATIVE (02:20) Hold Urine Culture: Testing available 48 hours from time of collection. (02:20) Ketones, Urine: NEGATIVE (02:20) Leukocyte, Urine: NEGATIVE (02:20) Nitrite, Urine: NEGATIVE (02:20) pH, Urine: 7 (02:20) RBC's, Urine: NONE SEEN (02:20) Specific [place], Urine: 1.02 (02:20) Urobilinogen: NORMAL (02:20) WBC's, Urine: NONE SEEN (02:20) ?? Microbiology ?? COVID-19, RSV, and Flu A/B, Rapid PCR?? Completed?? Source: Nasal Body Site: Nose Collected Dt/Tm: 12/01/2023 01:31 Last Updated Dt/Tm: 12/01/2023 03:22 ? Cardiology Labs High Sensitivity Troponin (HSTnT): 9 ng/L (12/01/23 03:54:00) High Sensitivity Troponin (HSTnT): 8 ng/L (12/01/23 01:32:00) ?? Blood Gases?? No qualifying data available. ?? Uric/LDH?? No qualifying data available. ? EKG study * Event Display: ECG 12-Lead Authored Date: Please click on pdf link to open report * Event Display: ECG 12-Lead Authored Date: Ventricular Rate: 63 BPM Atrial Rate: 63 BPM P-R Interval: 142 ms QRS Duration: 98 ms Q-T Interval: 496 ms QTC Calculation(Bazett): 507 ms P [place]: 63 degrees R [place]: 6 degrees T [place]: 119 degrees Normal sinus rhythm Minimal voltage criteria for LVH, may be normal variant ( Shayan product ) ST and T wave abnormality, consider lateral ischemia Abnormal ECG Confirmed by DERICK PEREZ ([id number]) on 12/01/2023 3:13:04 PM [place]: DEIRCK PEREZ * Event Display: ECG 12-Lead Authored Date: Please click on pdf link to open report * Event Display: ECG 12-Lead Authored Date: Ventricular Rate: 68 BPM Atrial Rate: 68 BPM P-R Interval: 146 ms QRS Duration: 100 ms Q-T Interval: 496 ms QTC Calculation(Bazett): 527 ms P [place]: 61 degrees R [place]: 19 degrees T [place]: 115 degrees Normal sinus rhythm ST and T wave abnormality, consider lateral ischemia Abnormal ECG When compared with ECG of 05-AUG-2023 22:34, T wave inversion now evident in Anterior leads T wave inversion less evident in Lateral leads Confirmed by DERICK PEREZ ([id number]) on 12/01/2023 3:12:53 PM [place]: DERICK PEREZ US Heart * Event Display: Echocardiogram - Complete Authored Date: Transthoracic Echocardiography Report (TTE) Patient Demographics Patient Name TAD GARCIA, Date of Study 12/01/2023 LARON [employer]i Systems[employer] Gender Male Facility Race Ethnicity or Date of 1975 Height: 68 inches Age 48 year(s) Weight: 149.92 pounds Accession Number [id number] BSA: 1.81 m2 Room Number [id number] BMI: 22.79 kg/m2 Referring Physician Craig Sterling Interpreting Kem Sheridan MD Physician Clinic Clerk Leonarda Liz [facility] Indications Chest pain. Clinical History Substance abuse Vtach s/p AICD HF Study Data Type of Study TTE procedure:Echo Complete-(Doppler, Colorflow) with Contrast. Procedure Information:Definity was administered by [employer] . Study Date12/01/2023 Start Time: 12:07 PM Study Location: [facility] Adult Echo Study Status: Echo lab Patient Status: LEON Technical Quality: Adequate Blood Pressure:148/81 mmHg EKG: Paced HR: 61 bpm Contrast Medium: Definity. Amount - 2 ml Allergies - No known allergies. 2D Measurements LV Diastolic Dimension: 5.9 cm LV Systolic Dimension: 4.6 cm LV Septum Diastolic: 1.1 cm LV PW Diastolic: 1.2 cm AO Root Dimension: 3.4 cm LA Dimension: 4.5 cm LA ESV (BP):85 ml LVOT Stroke Volume: 112.63 ml LA ESV Index: 47 ml/m2 Stroke Volume Index62.23 ml/m2 LVOT: 2.8 cm Cardiac Index:3.8 l/min/m2 Ascending Aorta:3.2 cm Doppler Measurements AV Peak Velocity: 132 cm/s MV Peak E-Wave: 90.2 cm/s AV Peak Gradient: 6.97 mmHg MV Peak A-Wave: 87.8 cm/s AV Mean Gradient: 4 mmHg MV E/A Ratio: 1.03 AV VTI:30.2 cm MV P1/2t: 90 msec LVOT Peak Velocity: 91.5 cm/s LVOT VTI18.3 cm MV Deceleration Time: 307 msec AV Area (Continuity):3.73 cm2 MV Area (PHT): 2.44 cm2 PV Peak Velocity: 114 cm/s PV Peak Gradient: 5.2 mmHg E' Septal Velocity: 8.81 cm/s E' Lateral Velocity: 9.46 cm/s E/Med E':10.06465 E/Lat E':9.157346 Cardiac Anatomy Left Ventricle/Interventricular Septum The left ventricle is mildly dilated. The left ventricular wall thickness is moderately increased. The LV systolic function is moderately reduced . The left ventricular ejection fraction is 30-40 %. There is moderate global hypokinesis with regional variation. Left Atrium/Interatrial Septum The left atrium is moderately dilated. Aortic Valve The aortic valve is trileaflet . The aortic valve leaflet opening is normal . There is no aortic stenosis. There is no significant aortic regurgitation. Mitral Valve The mitral valve appears mildly thickened. Aorta The aortic root is normal in size. Right Ventricle The right ventricle is normal in size. Right ventricular systolic function appears preserved. A pacer/ICD wire is seen in the right ventricle. Right Atrium The right atrium is dilated. Right atrial pacemaker lead is present. Pulmonic Valve The pulmonic valve velocity is normal. There is mild pulmonic regurgitation. Tricuspid Valve There is mild tricuspid valve regurgitation. Pumonary Artery An accurate pulmonary artery pressure could not be obtained. Venous Structures The inferior vena cava appears mildly dilated. Pericardium/Extracardiac There is no significant pericardial effusion. Summary The left ventricle is mildly dilated. The left ventricular wall thickness is moderately increased. The LV systolic function is moderately reduced . The left ventricular ejection fraction is 30-40 %. There is moderate global hypokinesis with regional variation. The left atrium is moderately dilated. The right ventricle is normal in size. Right ventricular systolic function appears preserved. A pacer/ICD wire is seen in the right ventricle. The right atrium is dilated. Right atrial pacemaker lead is present. An accurate pulmonary artery pressure could not be obtained. Comparison Comparison is made to the study of August 07, 2023. Limited prior study making direct comparison difficult. Signature * Event Display: Echocardiogram - Complete Authored Date: Hospital Progress note * Leodan Bran RN: PERFORM, SIGN, VERIFY Event Display: Progress Note Hospital Authored Date: Patient: LARON HUNTER [facility]: [id number] Age: 48 years Sex: Male : 1975 Associated Diagnoses: None Author: Leodan Bran RN Patient arrived via stretcher from the ED this shift. Patient alert and oriented, ambulatory for short distances. Complains of chest discomfort at pacemaker site, no signs of infections at this time.Indian speaking primarily. EP lab has been patient and admission complete. MD made aware of arrival and EP findings. Patient guarded by correctional officers from [facility]. Oriented to unit, noconcercameron at this time. Consult note * Desirae Fishman MD: PERFORM Desirae Fishman MD: PERFORM, MODIFY Desirae Fishman MD H: MODIFY, MODIFY, MODIFY, MODIFY, MODIFY Event Display: Consultation Note Authored Date: [id number] Patient: ??LARON HUNTER ? Age:??48 Years?Sex:??Male?:??1975?? Indication for Consult pmhx mi biba from lockup cc worsening cp x 2 days History of Present Illness/Interval History Mr.??Laron Garcia is a 48 year old male coming to us from a correctional facility with history of cocaine use, OUD on methadone, nonischemic cardiomyopathy, s/p VT??arrest in July 2023 now with ICD. He presents with 2 days of anterior chest pain localized to the area of his ICD device with associated palpitations, nausea, extremity tingling, and dizziness. He reports that he previously felt his ICD discharge in the last several??months??but that the chest pain he is having now feels different. He endorses concern with his symptoms as he associates them with his previous episode of vtach. Denies trauma to the chest. He reports that he was struggling with housing instability in the last several months which resulted in interruption of medication therapy for about a month and he is now incarcerated. Review of Systems General: Pos dizziness.??Negative for fever, chills. Cardiovascular: Pos chest pain and palpitations Respiratory: Breathing unchanged from baseline Gastrointestinal: Pos nausea. Negative for abdominal pain, diarrhea. Extremities: Neg swelling. Physical Exam Vitals & Measurements T:??98?F?? HR:??62??(Peripheral)?? RR:??20?? BP:??148/81?? SpO2:??100%?? Weight lb/oz: 169 lb 9 oz General: Well appearing, no acute distress HEENT: Moist mucus membranes, no eye discharge Respiratory: Clear to auscultation bilaterally, no increased work of breathing, no wheezes/crackles Cardiovascular: Normal rate, regular rhythm, no murmurs Chest: ICD device palpable under left aspect of chest with some tenderness. No erythema or warmth. Abdomen/GI: Normal active bowel sounds, soft, non-tender Extremities: No edema Neurologic: No focal neurologic deficits Skin: Warm and dry, No rashes or lesions Assessment/Plan This is a 48 year old male coming to us from a correctional facility with history of cocaine use, OUD on methadone, nonischemic cardiomyopathy, s/p V tach??arrest in July 2024 now with ICD who comes in with chest pain. His workup has been negative for ischemia with normal troponin x 2. He had a cardiac catheterization in July which revealed minimal irregularities. Chest pain is less likely ischemic and more likely related to the ICD device placement as he has some tenderness to the site but no signs of infection. However, it is unclear what caused his cardiac arrest in July. Reviewedprevious MRI and there are no discrete foci of scars.??Consider echocardiogram to assess for changes in function suggestive of ischemia. ICD interrogation reveals 318 episodes NSVT since September with longest episode of 1 minute. This may be secondary to medication nonadherence due to housing instability and will benefit from restarting medication. ?? Recommendations: ??- Continue??amiodarone at reduced dose of 400 mg daily ??- Continue remainder of cardiac medications as is ??- Obtain complete transthoracic??echocardiogram ??- Follow-up in the outpatient setting to be arranged ??- Remainder of care per primary medical team ?? Note written with assistance from Radha Vu MS4 and patient discussed with attending,??. ?? This note has been tentatively signed by Desirae Fishman MD pending final review and co-signature by Cardiology attending, Dr. Sonny Adam. Allergies No Known Medication Allergies Home Medications amiODARONE: 400 mg, By Mouth, Daily Carvedilol: 12.5 mg = 1 tablet, By Mouth, 2 times a day Furosemide: 20 mg = 1 tablet, By Mouth, Daily Levothyroxine: 75 mcg, By Mouth, Daily Hospital Medications Medications (17) Active SCHEDULED: (9) Amiodarone 200 mg Tablet (amiodarone 200 mg oral tablet) ??400 mg, By Mouth, Daily Aspirin 81 mg EC Tablet (aspirin 81 mg oral delayed release tablet) ??81 mg, By Mouth, Daily Carvedilol 12.5 mg Tablet (carvedilol 12.5 mg oral tablet) ??12.5 mg, By Mouth, 2 times a day Furosemide 20 mg Tablet (Lasix 20 mg oral tablet) ??20 mg, By Mouth, Daily Influenza Quad (6mo - 64 yr) Fluzone 0.5mL (Influenza, Quadrivalent Vaccine (Fluzone Quad)) ??0.5 mL, Intramuscular, Once Levothyroxine 75 mcg Tablet (levothyroxine 0.025 mg oral tablet) ??75 mcg, By Mouth, Daily NaCl 0.9% Flush 3ml (NaCL 0.9% Flush) ??3 mL, IV Push, Every 8 hours Nicotine 21 mg / 24 hour Patch (Nicotine Topical) ??21 mg, Topically, Daily Remove Patch (Remove ??Patch) ??1 each, Topically, Daily CONTINUOUS: (0) PRN: (8) Acetaminophen 325 mg Tablet (Acetaminophen Tablet) ??650 mg, By Mouth, Every 4 hours Dextromethorphan-Guaifenesin 20 mg-200 mg/10 mL Liqu UD (Robitussin DM Liquid) ??10 mL, By Mouth, Every 4 hours Docusate Sodium 100 mg Capsule (Docusate Sodium Capsule) ??100 mg 1 capsule, By Mouth, 2 times a day Melatonin 3 mg Tablet (Melatonin Tablet) ??3 mg, By Mouth, Daily at bedtime NaCl 0.9% Flush 3ml (NaCL 0.9% Flush) ??3 mL, IV Push, Every 8 hours Polyethylene Glycol 17 Gm Powder (MiraLax Powder) ??17 Gm 1 pack/packet, By Mouth, Daily Senna Tablet ??8.6 mg 1 tablet, By Mouth, 2 times a day Simethicone 80 mg Chewable Tablet (Simethicone Tablet) ??80 mg, Chew, 3 times a day Lab Results Cardiology Labs WBC: 10.5 k/mm3 (12/01/23) RBC:??3.8 m/mm3??Low (12/01/23) Hgb:??11.1 Gm/dL??Low (12/01/23) Hct:??35.8 %??Low (12/01/23) MCV:??94.2 femtoliters??High (12/01/23) MCH: 29.2 pg (12/01/23) MCHC:??31 g/dL??Low (12/01/23) Platelet Count: 230 k/mm3 (12/01/23) RDW-SD:??54.4 femtoliters??High (12/01/23) Nucleated RBC (Automated): 0 #/100 WBC'S (12/01/23) Abs. Neut: 5 k/mm3 (12/01/23) Abs. Lymph: 2.6 k/mm3 (12/01/23) Abs. [place]: 0.8 k/mm3 (12/01/23) Abs. Eo:??1.8 k/mm3??High (12/01/23) Abs. Baso: 0.1 k/mm3 (12/01/23) Neut %: 48 % (12/01/23) [place] %: 8 % (12/01/23) Eos %:??17.1 %??High (12/01/23) Baso %: 0.6 % (12/01/23) Imm Gran: 1.2 % (12/01/23) Abs. Imm Gran: 0.1 k/mm3 (12/01/23) INR: 1 (12/01/23) Protime (PT): 10.3 seconds (12/01/23) APTT: 25.6 seconds (07/29/23) Sodium: 141 mmol/L (12/01/23) Potassium: 4.3 mmol/L (12/01/23) Chloride: 107 mmol/L (12/01/23) Bicarbonate Level: 24 mmol/L (12/01/23) Glucose Level: 98 mg/dL (12/01/23) Hemoglobin A1C (Monitoring): 5.4 % (08/05/23) BUN: 12 mg/dL (12/01/23) Creatinine-Blood: 0.8 mg/dL (12/01/23) Calcium: 9.2 mg/dL (08/08/23) Protein, Total:??4.8 Gm/dL??Low (08/04/23) Albumin:??2.8 Gm/dL??Low (08/04/23) Alkaline Phosphatase: 74 units/L (08/04/23) AST (SGOT): 35 units/L (08/04/23) ALT (SGPT):??54 units/L??High (08/04/23) Bilirubin, Total: 0.3 mg/dL (08/04/23) TSH:??11.1 uIU/mL??High (07/29/23) Free T4: 0.75 ng/dL (07/29/23) Diagnostic Impression MRI MRI Cardiac W+W/O Contrast ?? 08:47:39 IMPRESSION: ?? Severely dilated left ventricle with moderately decreased global function, ejection fraction 36%. ?? No evidence of perfusion abnormality or focal late gadolinium enhancement abnormality to suggest infarct. The LV wall was upper normal in thickness measuring 11-12 mm, but the LV was dilated and the LV wall is probably mildly thickened overall. [place] T1 mapping revealed an elevated mean value [...] orsignificant LGE heterogeneity to suggest their presence. ?? Mild RV dilation. ?? Interval increased small left and trace right pleural effusions with increased consolidation of theleft lower lobe. ?? I have personally reviewed the images and I agree with this report. WSN: [id number] ? Ordering Physician: Umer Lawrence ?? Signed By: Stefan Schwartz MD ?? 17:42:00 The impression should also mention the distinctness contraction of the interventricular septum. This may reflect conduction abnormality. WSN: [id number] ? Ordering Physician: Umer Lawrence ?? Signed By: Stefan Schwartz MD ECG ECG 12-Lead * Preliminary * ?? 07:54:28 Ventricular Rate: 63 BPM Atrial Rate: 63 BPM P-R Interval: 142 ms QRS Duration: 98 ms Q-T Interval: 496 ms QTC Calculation(Bazett): 507 ms P [place]: 63 degrees R [place]: 6 degrees T [place]: 119 degrees Normal sinus rhythm Minimal voltage criteria for LVH, may be normal variant ( Shayan product ) ST and T wave abnormality, consider lateral ischemia Abnormal ECG When compared with ECG of 01-DEC-2023 01:27, MANUAL COMPARISON REQUIRED, DATA IS UNCONFIRMED ?? [place]: , ?? ECG 12-Lead * Preliminary * ?? 07:54:28 Please click on pdf link to open report Echo Echocardiogram - Complete ?? 11:10:10 Summary The LV systolic function is moderately to severely reduced with regional wall motion variation. ?? There is no significant pericardial effusion. ?? Signature ?? Signed By: Priya BARBOZA, Joselyn Flynn Cardiac Cath Procedure Cardiac Cath Procedure ?? [...] right common femoral arterial access with 6 Wallisian sheath used for diagnostic angiography. Subsequently upsized to 7 Wallisian IABP sheath placing a 40 cc balloon pump for hemodynamic support. Ultrasound-guided right common femoral venous access with 9 Wallisian venous Cordis sheath used for right heart catheterization and a 7 Wallisian thermodilution [place] was left in situ in right branches [...] 1.7-1.8 L/min/m2 with normal PVR. IABP and [place]-[facility] catheter were sutured in place for hemodynamic [...] ?? Signed By: Maria Isabel Valdez MD Note * Leodan Bran RN: PERFORM Event Display: Discharge/Transfer Note Hospital Authored Date: [id number] Nursing Discharge Note Entered On: 12/01/2023 15:14 EST Performed On: 12/01/2023 15:14 EST by Leodan Bran RN Nursing Discharge Note 2 Discharge Time : 12/01/2023 15:14 EST Discharge Level of Care at Discharge : Home/Detention/Foster Care Patient Left Unit Via : Wheelchair Patient Accompanied Off Unit with : Responsible adult DC Instructions Provided & Signed by Pt : Yes Patient Understands D/C Instructions : Yes Patient Instructions Discharge Signed : Yes Did Pt have Specialty Bed or Wound Vac : No Leodan Bran RN - 12/01/2023 15:14 EST * Hallie Srinivasan MD: PERFORM Event Display: Discharge/Transfer Note Hospital Authored Date: [id number] Patient: ??LARON HUNTER ? Age:??48 Years?Sex:??Male?:??1975?? Patient Information Discharge Location: [facility] Primary Care Physician: Not on Staff, PCP Admit Date/Time: 12/01/23 01:09 Discharge Disposition Discharge Disposition: ?? Discharge Diagnosis ?? Chest pain _ Discharge Medications amiODARONE (amiodarone 200 mg oral tablet)?400?Milligram?By Mouth?Daily?for 90?Days Carvedilol (carvedilol 12.5 mg oral tablet)?12.5?Milligram?1?tablet?By Mouth?2 times a day Furosemide (Lasix 20 mg oral tablet)?20?Milligram?1?tablet?By Mouth?Daily?for 90?Days Levothyroxine (levothyroxine 75 mcg (0.075 mg) oral tablet)?75?Microgram?By Mouth?Daily?for 90?Days ? Medications Started none Medications Discontinued none Doses Changed none Allergies Allergies ?(Active and Proposed Allergies Only) No Known Medication Allergies? (Severity: Unknown severity, Onset: Unknown) ? PCP Follow-Up/Heads-Up anemia start of EVELYNE I or ARB for CHF Future Appointments 2023 11:15 AM EDT ?? With: Weston BARBOZA, Lyle Kirk Where: [facility] [address] [place] [id number]- Status: Pending Friday 7:40 AM EDT ?? Where: [facility] [address] [place] [phone]- Status: Pending Hospital Course 48-year-old male with past medical history of cocaine and heroin use, status post VT arrest and nowwith AICD, congestive heart failure presented to ED for the evaluation of chest pain ? Chest pain History of VT arrest s/p??AICD History of systolic congestive heart failure ?? Patient presents with chest pain. ??Seems atypical. ??Pulmonary embolism unlikely.?? At the site ofAICD but no sign or symptom of cellulitis Troponin??stable AICD interrogation without any acute event Cards consulted??and suggested to get an echocardiogram.?? Results of echocardiogram reviewed with cardiology who suggested no change from previous echocardiogram. ??Cardiology recommended to continue with medical management and outpatient follow-up.?? However cardiology recommended??putting the dose of amiodarone??from 400 mg p.o. twice daily to??400 mg p.o. daily. ??Discussed with patient in detail. ??Cardiology will arrange outpatient follow-up.?? Patient not on EVELYNE inhibitor or ARB for unclear reason.?? Outpatient follow-up with cardiology and PCP was advised??as discussed with cardiology History of cocaine??and heroin use. ??Counseling has been done in detail ?? Anemia: PCP follow-up and workup ? Today feels much better. Having stable vitals. CTA BL, S1, S2 no GMR.Abd SOft, NT, BS+ve, AAO3. no pedal edema ?? Objective . Physical Exam Pending Results High??Sensitivity??Troponin T ordered on 12/01/2023 Patient Education Titles [employer] Ignite Patient Education - Chest Pain, Uncertain Cause?? Follow-Up Appointments Added Follow Up ?Time Frame ?Comments [facility]?4 to 5 weeks?also for the discussion regarding start of medications known as EVELYNE inhibitor or ARB Please follow-up with your primary care doctor within 1 to 2 weeks?Also for anemia PCP Not on Staff Patient Instructions Dose of amiodarone has been changed from 400 mg by mouth twice daily to 400 mg by mouth daily Post Discharge Care Discharge ?12/01/23 14:49:00 EST Discharge Prescriptions ?None, 12/01/23 14:49:00 EST Home Health Face to Face ^HomeHealthFTF 35??minutes spent on discharge * Leodan Bran RN: PERFORM Event Display: Patient Education/Instruction Authored Date: [id number] Inpatient Adult Discharge Instructions. [address] [address] Name: LARON GARCIA : 1975?? Visit: 12/01/2023 01:09?? Current Date: 12/01/2023 14:58 ?? Account: [id number]?? Inpatient Adult Discharge Instructions We would like [...] and their families. Surveys are administered by [employer] ?? If further treatment with your primary care physician or another doctor is recommended, it is important for you to keep the appointment. Call your primary care physician or return to the Emergency Department immediately if your condition worsens, fails to improve, or new symptoms develop. If you need to find a doctor, you can call [facility] Link for a referral at [phone] or toll free at [phone] ([phone]) or log in to [email or web address].. ?? [facility], in keeping with [facility] guidance, no longer requires face masks for [...] a health care nguyen of your choosing. [employer] is a website that allows you to securely view your medical information including your hospital discharge summary, office visit summaries, medications and follow-up visits. You can also request appointments, renew medications, and request access to your medical information using a health care nguyen of your choosing, or just ask a question. You can enroll at [email or web address] or register during your next office visit. You have been discharged from [facility], Patient Care Unit: D3B??. If you have any questions regarding these instructions, including results of studies pending, afteryou leave, please call us and we will be happy to assist you 28/04. [facility] Your Care Team Attending Physician Hallie Srinivasan MD?? Consulting Providers Hallie Srinivasan MD?? Discharging Providers Hallie Srinivasan MD Reason for Your Visit pmhx mi biba from lockup cc worsening cp x 2 days?? Your Diagnosis Chest pain Tests Performed Below is a partial list of the tests performed during your hospitalization. You may have had other tests and procedures not included in this list. Please discuss all test results with your provider. BUN CBC w/ Differential COVID-19, RSV, and Flu A/B, Rapid PCR Creatinine Electrolytes Glucose Level HOLD MARQUES TUBE INR Urinalysis w/hold for Urine Culture XR Chest 2 Views Frontal and Lat High??Sensitivity??Troponin T?? Primary Care Provider Not on Staff, PCP?? Advance Directive Patient has a Designated Caregiver: No Discharge Vitals Temperature: 98 DegF Pulse Rate: 64 bpm Respiratory Rate: 20 br/min Systolic Blood Pressure:??139 mm Hg??High Diastolic Blood Pressure: 73 mm Hg Oxygen Saturation: 99 % Studies Pending All studies ordered during this hospital stay have been completed unless listed below. Please discuss all pending results with your provider listed above in these instructions. ?? High??Sensitivity??Troponin T?? What to do next Instructions From Your Doctor Dose of amiodarone has been changed from 400 mg by mouth twice daily to 400 mg by mouth daily ?? Orders? 12/01/23 14:49:00 EST?? Prescriptions??, ??12/01/23 14:49:00 EST?? Scheduled Follow-Up Appointments 2023 11:15 AM EDT ?? With: Weston BARBOZA, Lyle Kirk Where: [facility] [address] [place] [id number]- Status: Pending Friday 7:40 AM EDT ?? Where: [facility] [address] [place] [phone]- Status: Pending You Need to Schedule the Following Appointments Follow Up with??[facility] When:??Within 4 to 5 weeks Why: also for the discussion regarding start of medications known as EVELYNE inhibitor or ARB Where: [address] [place] [phone]- Business (1) Follow Up with??Please follow-up with your primary care doctor within 1 to 2 weeks Why: Also for anemia Follow Up with??PCP Not on Staff When:??In 0 days Discharge Medications LARON HUNTER :1975 Visit Date:12/01/2023 Medications: Please continue your medications until treatment is completed or stopped by your provider. Medications not listed below should be discontinued. Discuss any questions related to medications with your provider. What How Much When Instructions Next Dose Unchanged amiODARONE (amiodarone 200 mg oral tablet) 400 Milligram Oral Daily Duration: 90 Days 12/02/22 AM Unchanged Carvedilol (carvedilol 12.5 mg oral tablet) 1 tab(s) Oral Twice a day 12/01/22 PM Unchanged Furosemide (Lasix 20 mg oral tablet) 1 tab(s) Oral Daily Duration: 90 Days 12/02/22 AM Unchanged Levothyroxine (levothyroxine 75 mcg (0.075 mg) oral tablet) 75 Microgram Oral Daily Duration: 90 Days 12/02/22 AM ?? What How Much When Comments Stop Taking Methadone (methadone 10 mg oral tablet) 4 tablets Oral Daily Prescription Given During Visit No new medications prescribed at time of discharge.?? Laboratory Results Below is a partial list of the most recent Laboratory test results done prior to this discharge. You may have had other tests and procedures not included in this list. Please discuss all test resultswith your provider. BUN (12/01/2023) ???BUN - 12 mg/dL CBC w/ Differential (12/01/2023) ???WBC - 10.5 k/mm3???RBC - 3.80 m/mm3???Hgb - 11.1 Gm/dL???Hct - 35.8 %???MCV - 94.2 femtoliters???MCH - 29.2 pg???MCHC - 31.0 g/dL???Platelet Count - 230 k/mm3???RDW-SD - 54.4 femtoliters???MPV - 10.2 femtoliters???Nucleated RBC (Automated) - 0.0 #/100 WBC'S???Abs. NRBC - 0.0 k/mm3???Abs. Neut - 5.0 k/mm3???Abs. Lymph - 2.6 k/mm3???Abs. [place] - 0.8 k/mm3???Abs. Eo - 1.8 k/mm3???Abs. Baso - 0.1 k/mm3???Neut % - 48.0 %???Lymph % - 25.1 %???[place] % - 8.0 %???Eos % - 17.1 %???Baso % - 0.6 %???Imm Gran - 1.2 %???Abs. Imm Gran - 0.1 k/mm3 COVID-19, RSV, and Flu A/B, Rapid PCR (12/01/2023) ???Influenza A PCR - NEGATIVE???Influenza B PCR - NEGATIVE???RSV PCR - NEGATIVE???COVID-19 PCR Specimen Source - NASAL???COVID-19 PCR Result - NEGATIVE Creatinine (12/01/2023) ???Creatinine-Blood - 0.8 mg/dL???Estimated GFR Creatinine - 110 ML/MIN/1.73 M2 Electrolytes (12/01/2023) ???Sodium - 141 mmol/L???Potassium - 4.3 mmol/L???Chloride - 107 mmol/L???Bicarbonate Level - 24 mmol/L???Anion Gap - 10 Glucose Level (12/01/2023) ???Glucose Level - 98 mg/dL HOLD MARQUES TUBE (12/01/2023) ???Hold Marques Top - SPECIMEN DISCARDED AFTER 1 WEEK INR (12/01/2023) ???INR - 1.0???Protime (PT) - 10.3 seconds Urinalysis w/hold for Urine Culture (12/01/2023) ???Appear/Color, Urine - LIGHT YELLOW???Specific [place], Urine - 1.020???pH, Urine - 7.0???Albumin, Urine - TRACE???Glucose, Urine - NEGATIVE???Ketones, Urine - NEGATIVE???Bilirubin, Urine - NEGATIVE???Hemoglobin, Urine - NEGATIVE???Nitrite, Urine - NEGATIVE???Leukocyte, Urine - NEGATIVE???Urobilin ogen - NORMAL???WBC's, Urine - NONE SEEN???RBC's, Urine - NONE SEEN???Amorphous Crystals - SLIGHT???Hold Urine Culture - Testing available 48 hours from time of collection. Allergies (NKA means No Known Allergies) No Known Medication Allergies Problems No qualifying data available Education Materials Below is the list of Educational Leaflet Providered with your Discharge Instructions. [employer] Ign[employer] Patient Education - Chest Pain, Uncertain Cause?? Valuables and Belongings I fully understand and agree that [facility] accepts no responsibility for all my personal [...] to send valuables and belongings home. ?? Date for Pt to Sign Valuables/Belongings: 12/01/23 08:13:00 ?? Other Discharge Information ? Pulmonary Rehab Status?? Pulmonary Rehab Discharge Status?? Respiratory Rate: 20 br/min ? Common Emergency Awareness Tips IS IT [...] are strongly encouraged to quit. Please call [facility] Link at [phone] or [phone] ([phone]) or log in to [email or web address] for referrals to smoking cessation programs. ?? 662 Suicide & Crisis Lifeline is available 28/04 if you or someone you know needs to find a reason to keep living. By calling 698 you'll be connected to a skilled, trained counselor at a crisis center in your area. INPATIENT DISCHARGE INSTRUCTIONS SIGNATURE PAGE TAD JOHNZQUEZ LARON Location:[facility] Registration Date and Time:12/01/2023 01:09 EST Primary Care Physician: Not on Staff, PCP Attending Physician: Craig BARBOZA, [facility], I LARON HUNTER, have received the above patient education materials/instructions and have verbalized understanding. If ambulance or transport services are being used I further acknowledge being given a choice of service. ?? If you need to contact me, please call me at this number: . Patient/Quantitative Manager Name: Patient/Quantitative Manager Signature: Relationship to Patient: Witness Name/Signature: Date: * Hallie Srinivasan MD: PERFORM, SIGN, VERIFY Event Display: Patient Education Handout Authored Date: [id number] * Hallie Srinivasan MD: PERFORM Event Display: Patient Education Leaflets Authored Date: [id number] Chest Pain, Uncertain Cause ?? [id number] Causas inciertas de dolor de pecho El dolor de pecho puede producirse por numerosas razones. En algunos casos, no se puede determinar la causa. Si beyer afecci??n no parece grave y el dolor no parece venir del coraz??n, beyer proveedor de atenci??n m??dica puede recomendar un seguimiento de cerca. A veces, los signos de un problema grave tardan m??s en aparecer. Muchas afecciones no relacionadas con el coraz??n pueden causar dolor de pecho. Por ejemplo: ??? Musculoesquel??nori. Costocondritis, kenny inflamaci??n de los tejidos alrededor de las costillas que puede ocurrir por trauma o lesiones por uso excesivo, o kenny distensi??n de los m??sculos de lapared tor??cica. ??? Respiratorias. Neumon??a, pulm??n colapsado (neumot??rax) o inflamaci??n del re vestimiento del pecho y los pulmones (pleuritis). ??? Gastrointestinales. Reflujo esof??gico, acidez estomacal, ??lceras o enfermedad de la ves??cula biliar. ??? Ansiedad y ataques de p??consuelo ??? Compresi??n e inflamaci??n de un nervio ??? Afecciones poco frecuentes dre aneurisma a??rtico o disecci??n a??rtica (kenny hinchaz??n de la arteria mee que sale del coraz??n o un desgarro en la pared de la arteria) o embolia pulmonar (co??gulos de mayra en los pulmones). Cuidados en el hogar Luego de beyer visita, preste atenci??n a las siguientes recomendaciones: ??? Descanse hoy y evite toda actividad agotadora. ??? Rapids el medicamento recetado seg??n le hayan indicado. ??? Est?? atento acualquier dolor de pecho recurrente y observe cualquier cambio ?? Visita de seguimiento Programe kenny visita de control con beyer proveedor de atenci??n m??dica si no empieza a sentirse mejoren las siguientes 24??horas, o seg??n lo que le indiquen. ?? Cu??ndo llamar al?? 911 Llame al?? 911 si ocurre algo de lo siguiente: ??? Cambio en el tipo de dolor: se siente diferente,se mcghee vuelto m??s grave, dura m??s o comienza a esparcirse hacia el hombro, el brazo, el sarahi, lamand??bula o la espalda ??? Falta de aire o dolor creciente al respirar ??? Debilidad, mareos o desmayos ??? Ritmo card??aco acelerado ??? Sensaci??n de aplastamiento en el pecho ??? Tos con cantidadabundante de mayra ?? Cu??ndo buscar atenci??n m??dica Llame a beyer proveedor de atenci??n m??dica de inmediato ante cualquiera de los siguientes signos o s??ntomas: ??? Tos con expulsi??n de esputo (flema) de color oscuro o con un poco de mayra ??? Fiebre de 100.4?F (38?C) o superior, o seg??n le haya indicado beyer proveedor de atenci??n m??dica ??? Dolor, enrojecimiento o hinchaz??n de kenny pierna ?? Last Reviewed Date: 2021 ?? [id number] [employer]. Todos los derechos reservados. Esta informaci??n no pretende sustituir la atenci??n m??dica profesional. S??lo beyer m??dico puede diagnosticar y tratar un problema de jermaine. ?? Patient Care team information Care Team Personnel Name: Veda Vazquez RN Position: [facility] RN Member Role: Primary Care Nurse Name: Dana Dodd Position: [facility] RN Supv Member Role: Primary Care Nurse Name: Mary King RN Position: [facility] RN Member Role: Primary Care Nurse Name: Knedra Hagan RN Position: [facility] RN Member Role: Primary Care Nurse Name: Karime Bailey Position: [facility] RN Supv Member Role: Primary Care Nurse Name: Brandon Echeverria LPN Position: [facility] RN Member Role: Primary Care Nurse Name: Not on Staff, PCP Position: [facility] Physician (General Medicine) Member Role: PCP Name: Sina Robles Position: [facility] RN Member Role: Primary Care Nurse Care Team Related Persons Name: ELISE DELGADO Address: home [address] [address] Name: ELISE MONTERO Address: [address] [place] [address]
--- OUTSIDE RECORDS SUMMARY | 2024-09-06 10:43 | XMS_ITS | Continuity of Care Document ---
Author Organization [facility] Address [address] [place] [id number]- Care Team Providers Care Group Director Name Role Phone Not on Staff, PCP Primary Care Physician Unavail able Encounter [facility] Date(s): 07/15/24 - 08/14/24 [facility] [address] [place] [id number]- Attending Physician: Diaz Delaney Admitting Physician: Diaz Delaney Referring Physician: Diaz Delaney Allergies, Adverse Reactions, Alerts No Known Medication Allergies Immunizations Given and Recorded Vaccine Date Status Refusal Reason [id number] 12y+ bivalent booster vax 01/23/23 Recorded SARS-CoV-2 (COVID-19) mRNA BNT-162b2 vac 11/27/22 Recorded SARS-CoV-2 (COVID-19) mRNA BNT-162b2 vac 11/06/22 Recorded Medications amiodarone 200 mg oral tablet 400 mg, By Mouth, Daily, # 90 tablet, Refills 3, Tot. Refills 3, Maintenance, 08/25/23 15:55:00 EST, Route to Pharmacy Electronically, [facility]/pharmacy #[id number], Partial fill upon patient request if the prescription is for a schedule II opioid drug., 175, cm... Start Date: 08/25/23 Stop Date: 08/19/24 Status: Ordered carvedilol 12.5 mg oral tablet 12.5 mg, 1, tablet, By Mouth, 2 times a day, # 60 tablet, Refills 3, Tot. Refills 3, Maintenance, 08/19/23 12:23:00 EST, Route to Pharmacy Electronically, [facility]/pharmacy #[id number], Partial fill upon patient request if the prescription is for a schedule II o... Start Date: 08/19/23 Status: Ordered Lasix 20 mg oral tablet 20 mg, 1, tablet, By Mouth, Daily, # 90 tablet, Refills 3, Tot. Refills 3, Maintenance, 08/25/23 15:55:00 EST, Route to Pharmacy Electronically, [facility]/pharmacy #[id number], Partial fill upon patient request if the prescription is for a schedule II opioid drug... Start Date: 08/25/23 Stop Date: 08/19/24 Status: Ordered levothyroxine 75 mcg (0.075 mg) oral tablet = 75 mcg, By Mouth, Daily, # 90 each, 0 Refills, Maintenance, 08/08/23 10:10:00 EDT, Tablet, [facility], Partial fill upon patient request if the prescription is for a schedule II opioid drug., 175, cm, 08/08/23 4:31:00 EDT, Height Start Date: 08/08/23 Stop Date: 11/06/23 Status: Ordered Suboxone 12 mg-3 mg sublingual film 1 film, Sublingual, Daily, 0 Refills, Maintenance, 03/12/24 13:40:00 EDT, Partial fill upon patientrequest if the prescription is for a schedule II opioid drug. Start Date: 03/12/24 Status: Ordered valsartan 40 mg oral tablet 40 mg, 1, tablet, By Mouth, Daily, Refills 0, Maintenance, 03/12/24 13:39:00 EDT, Partial fill uponpatient request if the prescription is for a schedule II opioid drug. Start Date: 03/12/24 Status: Ordered Xarelto 20 mg oral tablet 1 tablet = 20 mg, By Mouth, Daily at supper, # 30 tablet, 2 Refills, Maintenance, 03/12/24 16:18:00EDT, Tablet, [facility], Partial fill upon patient request if the prescription is fora schedule II opioid drug., 175, cm, 02/12/24 16:31... Start Date: 03/12/24 Stop Date: 06/10/24 Status: Ordered Problem List Condition Confirmation Course Effective Dates [...] fraction he underwent ICD implantation with a [employer] device and was discharged from the [...] Primary Care Nurse Name: Karime Bailey Position: [facility] RN Supv Member Role: Primary Care Nurse Name: Not on Staff, PCP Position: [facility] Physician (General Medicine) Member Role: PCP Name: Sina Robles RN Position: S RN Member Role: Primary Care Nurse Care Team Related Persons Name: ELISE MONTERO Address: [address] [address]
--- OUTSIDE RECORDS SUMMARY | 2024-09-06 10:43 | XMS_ITS | Continuity of Care Document ---
Author Organization [facility] Address [address] [place] [address]- Care Team Providers Care Skip Pit Worker Name Role Phone Not on Staff, PCP Primary Care Physician Unavail able Encounter [facility] [place] Date(s): 03/12/24 - 03/12/[address] [address]- Discharge Disposition: A-D/C Retirement, [facility], or Custodial Fac Attending Physician: Kaelyn Solis MD Admitting Physician: Kaelyn Solis MD Referring Physician: Not on Staff, Referring MD Allergies, Adverse Reactions, Alerts No Known Medication Allergies Medications amiodarone 200 mg oral tablet 400 mg, By Mouth, Daily, # 90 tablet, Refills 3, Tot. Refills 3, Maintenance, 08/25/23 15:55:00 EST, Route to Pharmacy Electronically, [facility]/pharmacy #[id number], Partial fill upon patient request if the prescription is for a schedule II opioid drug., 175, cm... Start Date: 08/25/23 Stop Date: 08/19/24 Status: Ordered carvedilol 12.5 mg oral tablet 12.5 mg, 1, tablet, By Mouth, 2 times a day, # 60 tablet, Refills 3, Tot. Refills 3, Maintenance, 08/19/23 12:23:00 EST, Route to Pharmacy Electronically, [facility]/pharmacy #[id number], Partial fill upon patient request if the prescription is for a schedule II o... Start Date: 08/19/23 Status: Ordered Lasix 20 mg oral tablet 20 mg, 1, tablet, By Mouth, Daily, # 90 tablet, Refills 3, Tot. Refills 3, Maintenance, 08/25/23 15:55:00 EST, Route to Pharmacy Electronically, [facility]/pharmacy #[id number], Partial fill upon patient request if the prescription is for a schedule II opioid drug... Start Date: 08/25/23 Stop Date: 08/19/24 Status: Ordered levothyroxine 75 mcg (0.075 mg) oral tablet = 75 mcg, By Mouth, Daily, # 90 each, 0 Refills, Maintenance, 08/08/23 10:10:00 EDT, Tablet, [facility], Partial fill upon patient [...] tablet, 2 Refills, Maintenance, 03/12/24 16:18:00EDT, Tablet, [facility], Partial fill upon patient request if the prescription is fora schedule II opioid drug., 175, cm, 02/12/24 16:31... Start Date: 03/12/24 Stop Date: 06/10/24 Status: Ordered Results Radiology Reports * Exam Date Time Procedure Performing Provider Status 03/12/24 5:08 AM Chest 2 Views Frontal and Lat Lillie , Cecilio ylor; Auth (Verified) Notes: (Chest 2 Views Frontal and Lat) Reason For Exam: Shortness of Breath RESULT: Chest 2 Views Frontal and Lat Examination: Chest performed on 03/12/2024. History: Shortness of breath. Chest and back pain. Findings: Frontal and lateral views of the chest are compared to a prior study dated 02/26/2024. AICD is demonstrated. The cardiac and mediastinal silhouettes are within normal limits. Low lung volumes are present. The lungs are clear. The osseous and soft tissue structures are unremarkable. Impression: There is no acute cardiopulmonary disease. WSN: [id number] Ordering Physician: Donis Zavala Dictated By: Tatiana Donald MD Dictated Date/Time: 03/12/24 7:59 am Reviewed By: Tatiana Donald MD Signed By: Tatiana Donald MD Signed Date/Time: 03/12/24 7:59 am Transcribed By: CSB Transcribed Date/Time: 03/12/24 7:59 am * Exam Date Time Procedure Performing Provider Status 03/12/24 6:04 AM US RUQ Flakita Mendes; Auth (Ve rified) Notes: (US RUQ) Reason For Exam: Abdominal Pain;Other: RESULT: US RUQ US RUQ Hx of Present Illness: chest and back pain; Reason: Abdominal Pain; Clinical Question(s): Cholecystitis COMPARISON: CT abdomen/pelvis 07/29/2023 FINDINGS: Liver: Normal in size and echotexture. No focal lesion. Smooth hepatic contour. Main portal vein patent with normal hepatopetal direction of flow. Gallbladder: No gallstones. Normal wall thickness. No pericholecystic fluid. Negative Birch sign. Biliary Tree: No intrahepatic or extrahepatic bile duct dilation is identified. Common duct measures: 0.4 cm. Pancreas: No abnormality in the visualized portions of the pancreas. Right kidney: 11.9 cm in length. Normal parenchymal echotexture and thickness. No hydronephrosis, stone or mass. IMPRESSION: No sonographic evidence of acute cholecystitis. I have personally reviewed the images and I agree with this report. WSN: [id number] Ordering Physician: Donis Zavala Dictated By: Hermila Fernandez DO Dictated Date/Time: 03/12/24 10:31 a Reviewed By: Edin Orona MD Signed By: Edin Orona MD Signed Date/Time: 03/12/24 10:36 am Transcribed By: CSB Transcribed Date/Time: 03/12/24 6:09 am * Exam Date Time Procedure Performing Provider Status 03/12/24 6:04 AM US Doppler Ext Lower Venous Left Flakita Mendes; Auth (Verified) Notes: (US Doppler Ext Lower Venous Left) Reason For Exam: Pain in limb;Other: RESULT: US Doppler Ext Lower Venous Left US Doppler Ext Lower Venous Left Hx of Present Illness: chest and back pain; Reason: Pain in limb; Clinical Question(s): Thrombus COMPARISON: None IMAGING TECHNIQUE: Ultrasound of the veins from the groin through the calf was performed using grayscale, color, and spectral Doppler ultrasound assessing for complete compressibility and normal flowcharacteristics. FINDINGS: Common femoral vein: Patent. No thrombosis. Femoral vein: Patent. No thrombosis. Popliteal vein: Patent. No thrombosis. Gastrocnemius veins: The visualized portions are patent without evidence of thrombosis. Peroneal veins: The visualized portions are patent without evidence of thrombosis. Posterior tibial veins: The visualized portions are patent without evidence of thrombosis. Contralateral common femoral vein: Patent. No thrombosis. OTHER FINDINGS: None. IMPRESSION: No evidence of deep venous thrombosis. I have personally reviewed the images and I agree with this report. WSN: [id number] Ordering Physician: Donis Zavala Dictated By: Hermila Fernandez DO Dictated Date/Time: 03/12/24 8:09 am Reviewed By: Edin Orona MD Signed By: Edin Orona MD Signed Date/Time: 03/12/24 8:14 am Transcribed By: MIGUEL Transcribed Date/Time: 03/12/24 6:07 am Vital Signs Most recent to oldest [Reference Range]: 1 2 3 Oxygen Saturation [94-100 %] 97 % (03/12/24 6:38 AM) 98 % (03/12/24 4:44 AM) 99 % (03/12/24 2:20 AM) Pulse Rate [55-90 bpm] 67 bpm (03/12/24 6:38 AM) 66 bpm (03/12/24 4:44 AM) 66 bpm (03/12/24 2:20 AM) Blood Pressure [90-138/55-84 mm Hg] 107/61mm Hg (03/12/24 6:38 AM) 125/72mm Hg (03/12/24 4:44 AM) 124/79mm Hg (03/12/24 2:20 AM) Respiratory Rate [16-30 br/min] 13 br/min *L* (03/12/24 6:38 AM) 14 br/min *L* (03/12/24 4:44 AM) 19 br/min (03/12/24 2:20 AM) Temperature [96.8-100.4 DegF] 98.4 DegF (03/12/24 6:38 AM) 98.3 DegF (03/12/24 2:20 AM) Mode of Delivery (Oxygen) Room air (03/12/24 6:38 AM) Room air (03/12/24 4:44 AM) Room air (03/12/24 2:20 AM) Temperature Route Oral (03/12/24 6:38 AM) Oral (03/12/24 2:20 AM) EKG study * Event Display: ECG 12-Lead Authored Date: Please click on pdf link to open report * Event Display: ECG 12-Lead Authored Date: Ventricular Rate: 66 BPM Atrial Rate: 66 BPM P-R Interval: 162 ms QRS Duration: 108 ms Q-T Interval: 430 ms QTC Calculation(Bazett): 450 ms P [place]: 50 degrees R [place]: 10 degrees T [place]: 108 degrees Normal sinus rhythm Incomplete left bundle branch block Minimal voltage criteria for LVH, may be normal variant ( [place] product ) T wave abnormality, consider lateral ischemia Abnormal ECG When compared with ECG of 26-FEB-2024 14:12, No significant change was found Confirmed by Joaquín Loaiza ([id number]) on 03/12/2024 8:45:09 AM [place]: Joaquín Loaiza Patient Care team information Care Team Personnel Name: Veda Vazquez RN Position: [facility] RN Member Role: Primary Care Nurse Name: Dana Dodd Position: [facility] RN Supv Member Role: Primary Care Nurse Name: Mary King RN Position: S RN Member Role: Primary Care Nurse Name: Kendra Hagan RN Position: S RN Member Role: Primary Care Nurse Name: Karime Bailey Position: S RN Supv Member Role: Primary Care Nurse Name: Not on Staff, PCP Position: S Physician (General Medicine) Member Role: PCP Name: Sina Robles RN Position: S RN Member Role: Primary Care Nurse Care Team Related Persons Name: ELISE DELGADO Address: home [address] [place] [address] Name: ELISE MONTERO Address: [address] [facility] [address]
--- OUTSIDE RECORDS SUMMARY | 2024-09-06 10:43 | XMS_ITS | Continuity of Care Document ---
Author Organization [facility] Address [address] [place] [address]- Care Team Providers Care Steel Hanger Name Role Phone Not on Staff, PCP Primary Care Physician Unavail able Encounter [facility] [place] Date(s): 04/23/24 - 05/23/24 [facility] [address] [place] [address]- [place] Allergies, Adverse Reactions, Alerts No Known Medication Allergies Immunizations Given and Recorded Vaccine Date Status Refusal Reason [id number] 12y+ bivalent booster vax 01/23/23 Recorded SARS-CoV-2 (COVID-19) mRNA BNT-162b2 vac 11/27/22 Recorded SARS-CoV-2 (COVID-19) mRNA BNT-162b2 vac 11/06/22 Recorded Medications amiodarone 200 mg oral tablet 400 mg, By Mouth, Daily, # 90 tablet, Refills 3, Tot. Refills 3, Maintenance, 08/25/23 15:55:00 EST, Route to Pharmacy Electronically, [facility]/pharmacy #[id number], Partial fill upon patient request if the prescription is for a schedule II opioid drug., 175, cm... Start Date: 08/25/23 Stop Date: 08/19/24 Status: Ordered carvedilol 12.5 mg oral tablet 12.5 mg, 1, tablet, By Mouth, 2 times a day, # 60 tablet, Refills 3, Tot. Refills 3, Maintenance, 08/19/23 12:23:00 EST, Route to Pharmacy Electronically, [facility]/pharmacy #[id number], Partial fill upon patient request if the prescription is for a schedule II o... Start Date: 08/19/23 Status: Ordered Lasix 20 mg oral tablet 20 mg, 1, tablet, By Mouth, Daily, # 90 tablet, Refills 3, Tot. Refills 3, Maintenance, 08/25/23 15:55:00 EST, Route to Pharmacy Electronically, [facility]/pharmacy #[id number], Partial fill upon patient request if [...] tablet, 2 Refills, Maintenance, 03/12/24 16:18:00EDT, Tablet, [facility], [...] fraction he underwent ICD implantation with a [employer] device and was discharged from the [...] Nurse Name: Not on Staff, PCP Position: [facility] Physician (General Medicine) Member Role: PCP Name: Sina Robles RN Position: S RN Member Role: Primary Care Nurse Care Team Related Persons Name: ELISE MONTERO Address: [address] [address]
--- OUTSIDE RECORDS SUMMARY | 2024-09-06 10:43 | XMS_ITS | Continuity of Care Document ---
Author Organization [facility] ter Address [address] [place] [address]- Care Team Providers Care Wharfinger Chief Name Role Phone Not on Staff, PCP Primary Care Physician Unavail able Encounter [facility] [place] Date(s): 02/20/24 - 04/10/[address] [address] Attending Physician: Lyle Ontiveros MD Admitting Physician: Lyle Ontiveros MD Referring Physician: Lyle Ontiveros MD Allergies, Adverse Reactions, Alerts No Known Medication Allergies Medications amiodarone 200 mg oral tablet 400 mg, By Mouth, Daily, # 90 tablet, Refills 3, Tot. Refills 3, Maintenance, 08/25/23 15:55:00 EST, Route to Pharmacy Electronically, [facility]/pharmacy #[id number], Partial fill upon patient [...] 08/25/23 15:55:00 EST, Route to Pharmacy Electronically, [facility]/pharmacy #[id number], Partial fill upon patient request if the prescription is for a schedule II opioid drug... Start Date: 08/25/23 Stop Date: 08/19/24 Status: Ordered levothyroxine 75 mcg (0.075 mg) oral tablet = 75 mcg, By Mouth, Daily, # 90 each, 0 Refills, Maintenance, 08/08/23 10:10:00 EDT, Tablet, [facility], Partial fill upon patient [...] tablet, 2 Refills, Maintenance, 03/12/24 16:18:00EDT, Tablet, [facility], Partial fill upon patient request if the prescription is fora schedule II opioid drug., 175, cm, 02/12/24 16:31... Start Date: 03/12/24 Stop Date: 06/10/24 Status: Ordered Patient Care team information Care Team Personnel Name: Veda Vazquez RN Position: [facility] RN Member Role: Primary Care Nurse Name: Dana Dodd Position: [facility] RN Supv Member Role: Primary Care Nurse Name: Mary King RN Position: S RN Member Role: Primary Care Nurse Name: Kendra Hagan RN Position: S RN Member Role: Primary Care Nurse Name: Karime Bailey Position: [facility] RN Supv Member Role: Primary Care Nurse Name: Not on Staff, PCP Position: [facility] Physician (General Medicine) Member Role: PCP Name: Sina Robles RN Position: [facility] RN Member Role: Primary Care Nurse Care Team Related Persons Name: ELISE DELGADO Address: home [address] [place] [address] [place] [address] Name: ELISE MONTERO Address: home [address] [place] [address]
--- OUTSIDE RECORDS SUMMARY | 2024-09-06 10:44 | XMS_ITS | Continuity of Care Document ---
Author Organization [facility] Address [address] [place] [address]- Care Team Providers Care Communications Attendant Name Role Phone Not on Staff, PCP Primary Care Physician Unavail able Encounter [facility] Date(s): 02/18/24 - 03/19/24 [facility] [address] [place] [phone] Attending Physician: Diaz Delaney Admitting Physician: Diaz Delaney Referring Physician: Diaz Delaney Referring Physician: Natalie Rico RN Allergies, Adverse Reactions, Alerts No Known Medication Allergies Medications amiodarone 200 mg oral tablet 400 mg, By Mouth, Daily, # 90 tablet, Refills 3, Tot. Refills 3, Maintenance, 08/25/23 15:55:00 EST, Route to Pharmacy Electronically, [facility]/pharmacy #[id number], Partial fill upon patient request if the prescription is for a schedule II opioid drug., 175, cm... Start Date: 08/25/23 Stop Date: 08/19/24 Status: Ordered carvedilol 12.5 mg oral tablet 12.5 mg, 1, tablet, By Mouth, 2 times a day, # 60 tablet, Refills 3, Tot. Refills 3, Maintenance, 08/19/23 12:23:00 EST, Route to Pharmacy Electronically, [facility]/pharmacy #[id number], Partial fill upon patient request if the prescription is for a schedule II o... Start Date: 08/19/23 Status: Ordered Lasix 20 mg oral tablet 20 mg, 1, tablet, By Mouth, Daily, # 90 tablet, Refills 3, Tot. Refills 3, Maintenance, 08/25/23 15:55:00 EST, Route to Pharmacy Electronically, [facility]/pharmacy #[id number], Partial fill upon patient request if the prescription is for a schedule II opioid drug... Start Date: 08/25/23 Stop Date: 08/19/24 Status: Ordered levothyroxine 75 mcg (0.075 mg) oral tablet = 75 mcg, By Mouth, Daily, # 90 each, 0 Refills, Maintenance, 08/08/23 10:10:00 EDT, Tablet, [facility], Partial fill upon patient request if [...] tablet, 2 Refills, Maintenance, 03/12/24 16:18:00EDT, Tablet, [facility], Partial fill upon patient request if the prescription is fora schedule II opioid drug., 175, cm, 02/12/24 16:31... Start Date: 03/12/24 Stop Date: 06/10/24 Status: Ordered Patient Care team information Care Team Personnel Name: Veda Vazquez RN Position: [facility] RN Member Role: Primary Care Nurse Name: Dana Dodd Position: [facility] RN Supv Member Role: Primary Care Nurse Name: Mary King RN Position: [facility] RN Member Role: Primary Care Nurse Name: Kendra Hagan RN Position: [facility] RN Member Role: Primary Care Nurse Name: Karime Bailey Position: [facility] RN Supv Member Role: Primary Care Nurse Name: Not on Staff, PCP Position: [facility] Physician (General Medicine) Member Role: PCP Name: Sina Robles RN Position: S RN Member Role: Primary Care Nurse Care Team Related Persons Name: ELISE DELGADO Address: [address] [address] Name: ELISE MONTERO Address: [address] [address]
--- OUTSIDE RECORDS SUMMARY | 2024-09-06 10:44 | XMS_ITS | Continuity of Care Document ---
Author Organization [facility] Address [address] [place] [address]- Care Team Providers Care Rounder Hand Name Role Phone Not on Staff, PCP Primary Care Physician Unavail able Encounter [facility] [place] Date(s): 02/12/24 - 03/13/24 [facility] [address] [place] [address]- Attending Physician: Diaz Delaney Admitting Physician: Diaz Delaney Referring Physician: Diaz Delaney Allergies, Adverse Reactions, Alerts No Known Medication Allergies Medications amiodarone 200 mg oral tablet 400 mg, By Mouth, Daily, # 90 tablet, Refills 3, Tot. Refills 3, Maintenance, 08/25/23 15:55:00 EST, Route to Pharmacy Electronically, [facility]/pharmacy #[id number], Partial fill upon patient request if the prescription is for a schedule II opioid drug., 175, cm... Start Date: 08/25/23 Stop Date: 08/19/24 Status: Ordered carvedilol 12.5 mg oral tablet 12.5 mg, 1, tablet, By Mouth, 2 times a day, # 60 tablet, Refills 3, Tot. Refills 3, Maintenance, 08/19/23 12:23:00 EST, Route to Pharmacy Electronically, [facility]/pharmacy #[id number], Partial fill upon patient request if the prescription is for a schedule II o... Start Date: 08/19/23 Status: Ordered Lasix 20 mg oral tablet 20 mg, 1, tablet, By Mouth, Daily, # 90 tablet, Refills 3, Tot. Refills 3, Maintenance, 08/25/23 15:55:00 EST, Route to Pharmacy Electronically, [facility]/pharmacy #[id number], Partial fill upon patient request if the prescription is for a schedule II opioid drug... Start Date: 08/25/23 Stop Date: 08/19/24 Status: Ordered levothyroxine 75 mcg (0.075 mg) oral tablet = 75 mcg, By Mouth, Daily, # 90 each, 0 Refills, Maintenance, 08/08/23 10:10:00 EDT, Tablet, [facility], Partial fill upon patient request [...] tablet, 2 Refills, Maintenance, 03/12/24 16:18:00EDT, Tablet, [facility], Partial fill upon patient request if the prescription is fora schedule II opioid drug., 175, cm, 02/12/24 16:31... Start Date: 03/12/24 Stop Date: 06/10/24 Status: Ordered Patient Care team information Care Team Personnel Name: Veda Vazquez RN Position: [facility] RN Member Role: Primary Care Nurse Name: Dana Dodd Position: [facility] RN Supv Member Role: Primary Care Nurse Name: Mary King RN Position: S RN Member Role: Primary Care Nurse Name: Kendra Hagan RN Position: S RN Member Role: Primary Care Nurse Name: Karime Bailey Position: S RN Supv Member Role: Primary Care Nurse Name: Not on Staff, PCP Position: [facility] Physician (General Medicine) Member Role: PCP Name: Sina Robles RN Position: S RN Member Role: Primary Care Nurse Care Team Related Persons Name: ELISE DELGADO Address: [address] [place] [address] Name: ELISE MONTERO Address: [address] [address]
--- OUTSIDE RECORDS SUMMARY | 2024-09-06 10:44 | XMS_ITS | Continuity of Care Document ---
Author Organization [facility] Address [address] [place] [address]- Care Team Providers Care Technology Officer Name Role Phone Not on Staff, PCP Primary Care Physician Unavail able Encounter [facility] Date(s): 06/03/24 - 07/03/24 [facility] [address] [place] [address]- Attending Physician: Diaz Delaney Admitting Physician: Diaz Delaney Referring Physician: AdmtrDiaz Allergies, Adverse Reactions, Alerts No Known Medication Allergies Immunizations Given and Recorded Vaccine Date Status Refusal Reason [id number] 12y+ bivalent booster vax 01/23/23 Recorded SARS-CoV-2 (COVID-19) mRNA BNT-162b2 vac 11/27/22 Recorded SARS-CoV-2 (COVID-19) mRNA BNT-162b2 vac 11/06/22 Recorded Medications amiodarone 200 mg oral tablet 400 mg, By Mouth, Daily, # 90 tablet, Refills 3, Tot. Refills 3, Maintenance, 08/25/23 15:55:00 EST, Route to Pharmacy Electronically, [facility]/pharmacy #[id number], Partial fill upon patient request if the prescription is for a schedule II opioid drug., 175, cm... Start Date: 08/25/23 Stop Date: 08/19/24 Status: Ordered carvedilol 12.5 mg oral tablet 12.5 mg, 1, tablet, By Mouth, 2 times a day, # 60 tablet, Refills 3, Tot. Refills 3, Maintenance, 08/19/23 12:23:00 EST, Route to Pharmacy Electronically, [facility]/pharmacy #[id number], Partial fill upon patient request if the prescription is for a schedule II o... Start Date: 08/19/23 Status: Ordered Lasix 20 mg oral tablet 20 mg, 1, tablet, By Mouth, Daily, # 90 tablet, Refills 3, Tot. Refills 3, Maintenance, 08/25/23 15:55:00 EST, Route to Pharmacy Electronically, [facility]/pharmacy #[id number], Partial fill upon patient request if the prescription is for a schedule II opioid drug... Start Date: 08/25/23 Stop Date: 08/19/24 Status: Ordered levothyroxine 75 mcg (0.075 mg) oral tablet = 75 mcg, By Mouth, Daily, # 90 each, 0 Refills, Maintenance, 08/08/23 10:10:00 EDT, Tablet, [facility], Partial fill upon patient request [...] 2 Refills, Maintenance, 03/12/24 16:18:00EDT, Tablet, [facility], Partial fill upon patient [...] fraction he underwent ICD implantation with a [employer] device and was discharged from the [...] Team Related Persons Name: ELISE MONTERO Address: [address] [address]
--- OUTSIDE RECORDS SUMMARY | 2024-09-06 10:44 | XMS_ITS | Continuity of Care Document ---
Author Organization [facility] Address [address] [place] [address]- Care Team Providers Care Consulting Nurse Name Role Phone Not on Staff, PCP Primary Care Physician Unavail able [place] [facility] [place]s): 12/01/23 - 02/15/24 [facility] [address] [place] [address]- Attending Physician: Olga Rajan NP Admitting Physician: Mohini HELM, Olga Allergies, Adverse Reactions, Alerts No Known Medication Allergies Medications amiodarone 200 mg oral tablet 400 mg, By Mouth, Daily, # 90 tablet, Refills 3, Tot. Refills 3, Maintenance, 08/25/23 15:55:00 EST, Route to Pharmacy Electronically, [facility]/pharmacy #[id number], Partial fill upon patient request if the prescription is for a schedule II opioid drug., 175, cm... Start Date: 08/25/23 Stop Date: 08/19/24 Status: Ordered carvedilol 12.5 mg oral tablet 12.5 mg, 1, tablet, By Mouth, 2 times a day, # 60 tablet, Refills 3, Tot. Refills 3, Maintenance, 08/19/23 12:23:00 EST, Route to Pharmacy Electronically, [facility]/pharmacy #[id number], Partial fill upon patient [...] 08/25/23 15:55:00 EST, Route to Pharmacy Electronically, [facility]/pharmacy #[id number], Partial fill upon patient request if the prescription is for a schedule II opioid drug... Start Date: 08/25/23 Stop Date: 08/19/24 Status: Ordered levothyroxine 75 mcg (0.075 mg) oral tablet = 75 mcg, By Mouth, Daily, # 90 each, 0 Refills, Maintenance, 08/08/23 10:10:00 EDT, Tablet, [facility], Partial fill upon [...] Nurse Name: Not on Staff, PCP Position: [facility] Physician (General Medicine) Member Role: PCP Name: Sina Robles Position: S RN Member Role: Primary Care Nurse Care Team Related Persons Name: ELISE DELGADO Address: home [address] [place] [id number] Name: ELISE MONTERO Address: home [address] [address]
--- OUTSIDE RECORDS SUMMARY | 2024-09-06 10:44 | XMS_ITS | Continuity of Care Document ---
Author Organization [facility] Address [address] [place] [address]- Care Team Providers Care Assistant Portfolio Manager Name Role Phone Not on Staff, PCP Primary Care Physician Unavail able Encounter [facility] [place] Date(s): 12/23/23 - 03/19/24 [facility] [address] [place] [address]- Attending Physician: Stone Santos MD Admitting Physician: Stone Santos MD Allergies, Adverse Reactions, Alerts No Known Medication Allergies Medications amiodarone 200 mg oral tablet 400 mg, By Mouth, Daily, # 90 tablet, Refills 3, Tot. Refills 3, Maintenance, 08/25/23 15:55:00 EST, Route to Pharmacy Electronically, [facility]/pharmacy #[id number], Partial fill upon patient request if the prescription is for a schedule II opioid drug., 175, cm... Start Date: 08/25/23 Stop Date: 08/19/24 Status: Ordered carvedilol 12.5 mg oral tablet 12.5 mg, 1, tablet, By Mouth, 2 times a day, # 60 tablet, Refills 3, Tot. Refills 3, Maintenance, 08/19/23 12:23:00 EST, Route to Pharmacy Electronically, [facility]/pharmacy #[id number], Partial fill upon patient request if the prescription is for a schedule II o... Start Date: 08/19/23 Status: Ordered Lasix 20 mg oral tablet 20 mg, 1, tablet, By Mouth, Daily, # 90 tablet, Refills 3, Tot. Refills 3, Maintenance, 08/25/23 15:55:00 EST, Route to Pharmacy Electronically, [facility]/pharmacy #[id number], Partial fill upon patient request if the prescription is for a schedule II opioid drug... Start Date: 08/25/23 Stop Date: 08/19/24 Status: Ordered levothyroxine 75 mcg (0.075 mg) oral tablet = 75 mcg, By Mouth, Daily, # 90 each, 0 Refills, Maintenance, 08/08/23 10:10:00 EDT, Tablet, [facility], Partial fill upon patient request [...] tablet, 2 Refills, Maintenance, 03/12/24 16:18:00EDT, Tablet, [facility], Partial fill upon patient request if the prescription is fora schedule II opioid drug., 175, cm, 02/12/24 16:31... Start Date: 03/12/24 Stop Date: 06/10/24 Status: Ordered Patient Care team information Care Team Personnel Name: Veda Vazquez RN Position: [facility] RN Member Role: Primary Care Nurse Name: Dana Dodd Position: [facility] RN Supv Member Role: Primary Care Nurse Name: Mary King RN Position: S RN Member Role: Primary Care Nurse Name: Kendra Hagan RN Position: S RN Member Role: Primary Care Nurse Name: Karime Bailey Position: [facility] RN Supv Member Role: Primary Care Nurse Name: Not on Staff, PCP Position: [facility] Physician (General Medicine) Member Role: PCP Name: Sina Robles RN Position: [facility] RN Member Role: Primary Care Nurse Care Team Related Persons Name: ELISE DELGADO Address: [address] [place] [address] Name: ELISE MONTERO Address: home [address] [place] [address] [place] [id number]
--- OUTSIDE RECORDS SUMMARY | 2024-09-06 10:44 | XMS_ITS | Continuity of Care Document ---
Author Organization [facility] Address [address] [place] [address]- Care Team Providers Care Anesthesiology Technologist Name Role Phone Not on Staff, PCP Primary Care Physician Unavail able [place] [facility] [place]/16[place]24 - 05/16/24 [facility] [address] [place] [id number] Allergies, Adverse Reactions, Alerts No Known Medication Allergies Immunizations Given and Recorded Vaccine Date Status Refusal Reason [id number] 12y+ bivalent booster vax 01/23/23 Recorded SARS-CoV-2 (COVID-19) mRNA BNT-162b2 vac 11/27/22 Recorded SARS-CoV-2 (COVID-19) mRNA BNT-162b2 vac 11/06/22 Recorded Medications amiodarone 200 mg oral tablet 400 mg, By Mouth, Daily, # 90 tablet, Refills 3, Tot. Refills 3, Maintenance, 08/25/23 15:55:00 EST, Route to Pharmacy Electronically, [facility]/pharmacy #[id number], Partial fill upon patient request if the prescription is for a schedule II opioid drug., 175, cm... Start Date: 08/25/23 Stop Date: 08/19/24 Status: Ordered carvedilol 12.5 mg oral tablet 12.5 mg, 1, tablet, By Mouth, 2 times a day, # 60 tablet, Refills 3, Tot. Refills 3, Maintenance, 08/19/23 12:23:00 EST, Route to Pharmacy Electronically, [facility]/pharmacy #[id number], Partial fill upon patient request if the prescription is for a schedule II o... Start Date: 08/19/23 Status: Ordered Lasix 20 mg oral tablet 20 mg, 1, tablet, By Mouth, Daily, # 90 tablet, Refills 3, Tot. Refills 3, Maintenance, 08/25/23 15:55:00 EST, Route to Pharmacy Electronically, [facility]/pharmacy #[id number], Partial fill upon patient request if the prescription is for a schedule II opioid drug... Start Date: 08/25/23 Stop Date: 08/19/24 Status: Ordered levothyroxine 75 mcg (0.075 mg) oral tablet = 75 mcg, By Mouth, Daily, # 90 each, 0 Refills, Maintenance, 08/08/23 10:10:00 EDT, Tablet, [facility], Partial fill upon patient [...] tablet, 2 Refills, Maintenance, 03/12/24 16:18:00EDT, Tablet, [facility], Partial fill upon patient [...] fraction he underwent ICD implantation with a [employer] device and was discharged from the [...] Nurse Name: Not on Staff, PCP Position: [facility] Physician (General Medicine) Member Role: PCP Name: Sina Robles RN Position: S RN Member Role: Primary Care Nurse Care Team Related Persons Name: ELISE MONTERO Address: [address] [address]
--- OUTSIDE RECORDS SUMMARY | 2024-09-06 10:44 | XMS_ITS | Continuity of Care Document ---
Author Organization [facility] Address [address] [place] [address]- Care Team Providers Care Road Inspector Name Role Phone Not on Staff, PCP Primary Care Physician Unavail able Encounter [facility] [place] Date(s): 12/29/23 - 01/28/24 [facility] [address] [place] [address]- Attending Physician: Diaz Delaney Admitting Physician: Diaz Delaney Referring Physician: Diaz Delaney Allergies, Adverse Reactions, Alerts No Known Medication Allergies Medications amiodarone 200 mg oral tablet 400 mg, By Mouth, Daily, # 90 tablet, Refills 3, Tot. Refills 3, Maintenance, 08/25/23 15:55:00 EST, Route to Pharmacy Electronically, [facility]/pharmacy #[id number], Partial fill upon patient request if the prescription is for a schedule II opioid drug., 175, cm... Start Date: 08/25/23 Stop Date: 08/19/24 Status: Ordered carvedilol 12.5 mg oral tablet 12.5 mg, 1, tablet, By Mouth, 2 times a day, # 60 tablet, Refills 3, Tot. Refills 3, Maintenance, 08/19/23 12:23:00 EST, Route to Pharmacy Electronically, [facility]/pharmacy #[id number], Partial fill upon patient request if the prescription is for a schedule II o... Start Date: 08/19/23 Status: Ordered Lasix 20 mg oral tablet 20 mg, 1, tablet, By Mouth, Daily, # 90 tablet, Refills 3, Tot. Refills 3, Maintenance, 08/25/23 15:55:00 EST, Route to Pharmacy Electronically, [facility]/pharmacy #[id number], Partial fill upon patient request if the prescription is for a schedule II opioid drug... Start Date: 08/25/23 Stop Date: 08/19/24 Status: Ordered levothyroxine 75 mcg (0.075 mg) oral tablet = 75 mcg, By Mouth, Daily, # 90 each, 0 Refills, Maintenance, 08/08/23 10:10:00 EDT, Tablet, [facility], Partial fill upon patient request if the prescription is for a schedule II opioid drug., 175, cm, 08/08/23 4:31:00 EDT, Height Start Date: 08/08/23 Stop Date: 11/06/23 Status: Ordered Patient Care team information Care Team Personnel Name: Veda Vazquez RN Position: [facility] RN Member Role: Primary Care Nurse Name: Dana Dodd Position: [facility] RN Supv Member Role: Primary Care Nurse Name: Mary King RN Position: [facility] RN Member Role: Primary Care Nurse Name: Kendra Hagan RN Position: S RN Member Role: Primary Care Nurse Name: Karime Bailey Position: [facility] RN Supv Member Role: Primary Care Nurse Name: Brandon Echeevrria LPN Position: S RN Member Role: Primary Care Nurse Name: Not on Staff, PCP Position: [facility] Physician (General Medicine) Member Role: PCP Name: Sina Robles Position: [facility] RN Member Role: Primary Care Nurse Care Team Related Persons Name: ELISE DELGADO Address: [address] [address] Name: ELISE MONTERO Address: home [address] [place] [address]
--- OUTSIDE RECORDS SUMMARY | 2024-09-06 10:44 | XMS_ITS | Continuity of Care Document ---
Author Organization [facility] Address [address] [place] [address]- Care Team Providers Care Marketing Effectiveness Manager Name Role Phone Not on Staff, PCP Primary Care Physician Unavail able Encounter [facility] [place] Date(s): 06/16/24 - 08/14/24 [facility] [address] [place] [id number]- Attending Physician: Lyle Ontiveros MD Admitting Physician: Lyle Ontiveros MD Referring Physician: Not on Staff, Referring MD Allergies, Adverse Reactions, Alerts No Known Medication Allergies Immunizations Given and Recorded Vaccine Date Status Refusal Reason [id number] 12y+ bivalent booster vax 01/23/23 Recorded SARS-CoV-2 (COVID-19) mRNA BNT-162b2 vac 11/27/22 Recorded SARS-CoV-2 (COVID-19) mRNA BNT-162b2 vac 11/06/22 Recorded Medications amiodarone 200 mg oral tablet 400 mg, By Mouth, Daily, # 90 tablet, Refills 3, Tot. Refills 3, Maintenance, 08/25/23 15:55:00 EST, Route to Pharmacy Electronically, [facility]/pharmacy #[id number], Partial fill upon patient request if the prescription is for a schedule II opioid drug., 175, cm... Start Date: 08/25/23 Stop Date: 08/19/24 Status: Ordered carvedilol 12.5 mg oral tablet 12.5 mg, 1, tablet, By Mouth, 2 times a day, # 60 tablet, Refills 3, Tot. Refills 3, Maintenance, 08/19/23 12:23:00 EST, Route to Pharmacy Electronically, [facility]/pharmacy #[id number], Partial fill upon patient request if the prescription is for a schedule II o... Start Date: 08/19/23 Status: Ordered Lasix 20 mg oral tablet 20 mg, 1, tablet, By Mouth, Daily, # 90 tablet, Refills 3, Tot. Refills 3, Maintenance, 08/25/23 15:55:00 EST, Route to Pharmacy Electronically, [facility]/pharmacy #[id number], Partial fill upon patient request if the prescription is for a schedule II opioid drug... Start Date: 08/25/23 Stop Date: 08/19/24 Status: Ordered levothyroxine 75 mcg (0.075 mg) oral tablet = 75 mcg, By Mouth, Daily, # 90 each, 0 Refills, Maintenance, 08/08/23 10:10:00 EDT, Tablet, [facility], Partial fill upon patient request [...] tablet, 2 Refills, Maintenance, 03/12/24 16:18:00EDT, Tablet, [facility], Partial fill upon patient request [...] fraction he underwent ICD implantation with a [employer] device and was discharged from the [...] Primary Care Nurse Name: Karime Bailey Position: [facility] RN Supv Member Role: Primary Care Nurse Name: Not on Staff, PCP Position: [facility] Physician (General Medicine) Member Role: PCP Name: Sina Robles RN Position: S RN Member Role: Primary Care Nurse Care Team Related Persons Name: ELISE MONTERO Address: [address] [address]
--- OUTSIDE RECORDS SUMMARY | 2024-09-06 10:44 | XMS_ITS | Continuity of Care Document ---
Author Organization [facility] ter Address [address] [place] [address]- Care Team Providers Care Men'S Basketball Coach Name Role Phone Not on Staff, PCP Primary Care Physician Unavail able Encounter [facility] Date(s): 03/12/24 - 03/12/[address] [id number] Discharge Disposition: A-D/C Home Attending Physician: Lyle Ontiveros MD Admitting Physician: Lyle Ontiveros MD Referring Physician: Lyle Ontiveros MD Allergies, Adverse Reactions, Alerts No Known Medication Allergies Medications amiodarone 200 mg oral tablet 400 mg, By Mouth, Daily, # 90 tablet, Refills 3, Tot. Refills 3, Maintenance, 08/25/23 15:55:00 EST, Route to Pharmacy Electronically, [facility]/pharmacy #[id number], Partial fill upon patient request if the prescription is for a schedule II opioid drug., 175, cm... Start Date: 08/25/23 Stop Date: 08/19/24 Status: Ordered carvedilol 12.5 mg oral tablet 12.5 mg, 1, tablet, By Mouth, 2 times a day, # 60 tablet, Refills 3, Tot. Refills 3, Maintenance, 08/19/23 12:23:00 EST, Route to Pharmacy Electronically, [facility]/pharmacy #[id number], Partial fill upon patient request if the prescription is for a schedule II o... Start Date: 08/19/23 Status: Ordered Lasix 20 mg oral tablet 20 mg, 1, tablet, By Mouth, Daily, # 90 tablet, Refills 3, Tot. Refills 3, Maintenance, 08/25/23 15:55:00 EST, Route to Pharmacy Electronically, [facility]/pharmacy #[id number], Partial fill upon patient request if the prescription is for a schedule II opioid drug... Start Date: 08/25/23 Stop Date: 08/19/24 Status: Ordered levothyroxine 75 mcg (0.075 mg) oral tablet = 75 mcg, By Mouth, Daily, # 90 each, 0 Refills, Maintenance, 08/08/23 10:10:00 EDT, Tablet, [facility], Partial fill upon patient request if [...] tablet, 2 Refills, Maintenance, 03/12/24 16:18:00EDT, Tablet, [facility] 3, Partial fill upon patient request if the prescription is fora schedule II opioid drug., 175, cm, 02/12/24 16:31... Start Date: 03/12/24 Stop Date: 06/10/24 Status: Ordered Vital Signs Most recent to oldest [Reference Range]: 1 2 3 Oxygen Saturation [94-100 %] 97 % (03/12/24 7:00 PM) 96 % (03/12/24 6:00 PM) 96 % (03/12/24 5:45 PM) Pulse Rate [55-90 bpm] 72 bpm (03/12/24 11:51 AM) Blood Pressure [90-138/55-84 mm Hg] 114/71mm Hg (03/12/24 7:00 PM) 109/65mm Hg (03/12/24 6:00 PM) 114/64mm Hg (03/12/24 5:45 PM) Respiratory Rate [16-30 br/min] 28 br/min (03/12/24 7:00 PM) 15 br/min *L* (03/12/24 6:00 PM) 15 br/min *L* (03/12/24 5:45 PM) Temperature [96.8-100.4 DegF] 97.2 DegF (03/12/24 4:00 PM) 97.0 DegF (03/12/24 11:51 AM) Mode of Delivery (Oxygen) Room air (03/12/24 7:00 PM) Room air (03/12/24 6:00 PM) Room air (03/12/24 5:45 PM) Blood pressure sites Arm, left (03/12/24 11:51 AM) Temperature Route Temporal (03/12/24 11:51 AM) EKG study * Event Display: ECG 12-Lead Authored Date: Please click on pdf link to open report * Event Display: ECG 12-Lead Authored Date: Ventricular Rate: 76 BPM Atrial Rate: 76 BPM P-R Interval: 164 ms QRS Duration: 114 ms Q-T Interval: 410 ms QTC Calculation(Bazett): 461 ms P [place]: 53 degrees R [place]: 9 degrees T [place]: 100 degrees Normal sinus rhythm Cannot rule out Inferior infarct , age undetermined T wave abnormality, consider lateral ischemia Abnormal ECG When compared with ECG of 12-MAR-2024 02:03, No significant change was found Confirmed by Joaquín Loaiza ([id number]) on 03/12/2024 1:11:34 PM [place]: Joaquín Loaiza Note * Sully Pat RN: PERFORM Event Display: Discharge/Transfer Note Hospital Authored Date: [id number] Nursing Discharge Note Entered On: 03/12/2024 20:32 EDT Performed On: 03/12/2024 20:00 EDT by Sully Pat RN Nursing Discharge Note 2 Discharge Time : 03/12/2024 20:00 EDT Discharge Level of Care at Discharge : Correction Fac/Police/Nursing Home Patient Left Unit Via : Wheelchair Patient Accompanied Off Unit with : Responsible adult, Other: Correctional Officers DC Instructions Provided & Signed by Pt : Yes Patient Understands D/C Instructions : Yes Patient Instructions Discharge Signed : Yes Discharge Comments : IVs removed, dc education provided, all questions answered. B/L groins c/d/i, no hematoma. pt verbalized understanding of dc instructions. Did Pt have Specialty Bed or Wound Vac : No Sully Pat RN - 03/12/2024 20:31 EDT * Sully Pat RN: PERFORM Event Display: Patient Education/Instruction Authored Date: Inpatient Adult Discharge Instructions. [address] [address] Name: BHAVANI GÓMEZ : 1975?? Visit: 03/12/2024 11:32?? Current Date: 03/12/2024 18:23 ?? Account: [id number]?? Inpatient Adult Discharge Instructions We would like [...] and their families. Surveys are administered by [employer] ?? If further treatment with your primary care physician or another doctor is recommended, it is important for you to keep the appointment. Call your primary care physician or return to the Emergency Department immediately if your condition worsens, fails to improve, or new symptoms develop. If you need to find a doctor, you can call [email or web address] Link for a referral at [phone] or toll free at [phone]) or log in to [email or web address].. ?? [facility], in keeping with [facility] guidance, no longer requires face masks [...] portal or by using a health care gnuyen of your choosing. [employer] is a website that allows you to securely view your medical information including your hospital discharge summary, office visit summaries, medications and follow-up visits. You can also request appointments, renew medications, and request access to your medical information using a health care nguyen of your choosing, or just ask a question. You can enroll at [email or web address] or register during your next office visit. You have been discharged from [facility], Patient Care Unit: CARE??. If you have any questions regarding these instructions, including results of studies pending, afteryou leave, please call us and we will be happy to assist you 28/04. [facility] Nursing Unit Direct Phone Number, for 28/04 contact and results of studies pending CARE [address] [place] [address] Your Care Team Attending Physician Lyle Ontiveros MD?? Consulting Providers Lyle Ontiveros MD?? Discharging Providers Lyle Ontiveros MD Tests Performed Below is a partial list of the tests performed during your hospitalization. You may have had other tests and procedures not included in this list. Please discuss all test results with your provider. POC Hemochron ACT-LR Type and Screen No tests performed during this visit.?? Primary Care Provider Not on Staff, PCP?? Advance Directive Health Care Proxy on File No Discharge Vitals Temperature: 97.2 DegF Pulse Rate: 72 bpm Respiratory Rate:??15 br/min??Low Systolic Blood Pressure: 114 mm Hg Diastolic Blood Pressure: 64 mm Hg Oxygen Saturation: 96 % Studies Pending All studies ordered during this hospital stay have been completed unless listed below. Please discuss all pending results with your provider listed above in these instructions. ?? No incomplete studies found?? What to do next Instructions From Your Doctor ?? Orders?? discharge after post procedure rest order complete, patient has ambulated and groin incision(s) arestable 30 mins post ambulation, ??03/12/24 16:16:00 EDT?? Scheduled Follow-Up Appointments Friday 7:40 AM EDT ?? Where: [facility] [address] [place] [address]- Status: Pending You Need to Schedule the Following Appointments Follow Up with??Weston BARBOZA, Lyle Kirk When:??Only if needed Where: ?? Follow Up with??Not on Staff, PCP When:??Within 1 week: call to discuss follow up visit Discharge Medications BHAVANI HUNTER :1975 Visit Date:03/12/2024 Medications: Please continue your medications until treatment is completed or stopped by your provider. Medications not listed below should be discontinued. Discuss any questions related to medications with your provider. What How Much When Instructions Next Dose New rivaroxaban (Xarelto 20 mg oral tablet) 1 tab(s) Oral Daily at supper Duration: 30 Days Refills: 2 Pickup at [facility] 3 tomorrow PM Unchanged amiODARONE (amiodarone 200 mg oral tablet) 400 Milligram Oral Daily Duration: 90 Days resume as prescribed, per home schedule Unchanged Buprenorphine-Naloxone (Suboxone 12 mg-3 mg sublingual film) 1 Film Sublingual Daily resume as prescribed, per home schedule Unchanged Carvedilol (carvedilol 12.5 mg oral tablet) 1 tab(s) Oral Twice a day resume as prescribed, per home schedule Unchanged Furosemide (Lasix 20 mg oral tablet) 1 tab(s) Oral Daily Duration: 90 Days resume as prescribed, per home schedule Unchanged Levothyroxine (levothyroxine 75 mcg (0.075 mg) oral tablet) 75 Microgram Oral Daily Duration: 90 Days resume as prescribed, per home schedule Unchanged Valsartan (valsartan 40 mg oral tablet) 1 tab(s) Oral Daily resume as prescribed, per home schedule Pharmacy Information [facility] 3: [address], [place] [phone] Prescription Given During Visit rivaroxaban (Xarelto 20 mg oral tablet) - 1 tablet = 20 mg, By Mouth, Daily at supper, # 30 tablet,2 Refills, [facility] 3, [address] [place] [phone]?? Laboratory Results Below is a partial list of the most recent Laboratory test results done prior to this discharge. You may have had other tests and procedures not included in this list. Please discuss all test resultswith your provider. Antibody Identification 1 - Anti-K (03/12/2024) POC Hemochron ACT-LR (03/12/2024) ???POC ACT-LR - 349.0 seconds Type and Screen (03/12/2024) ???Blood Type - O Positive???Antibody Screen - Positive Allergies (NKA means No Known Allergies) No Known Medication Allergies Problems No qualifying data available Education Materials Below is the list of Educational Leaflet Providered with your Discharge Instructions. [employer] Patient Education - M-Groin I Discharge Instructions?? [employer] Patient Education - Discharge Instructions for Catheter Ablation?? [employer] Patient Education - Anesthesia: General Anesthesia?? [employer] Patient Education - Rivaroxaban Oral Tablet?? Valuables and Belongings I fully understand and agree that [facility] accepts no responsibility for all my [...] encouraged to send valuables and belongings home. ? Other Discharge Information ? Pulmonary Rehab Status?? Pulmonary Rehab Discharge Status?? Respiratory Rate:??15 br/min??Low ? Common Emergency Awareness Tips IS IT [...] are strongly encouraged to quit. Please call [facility] [email or web address].com Link at [phone] or [phone] ([phone]) or log in to [email or web address] for referrals to smoking cessation programs. ?? 223 Suicide & Crisis Lifeline is available 28/04 if you or someone you know needs to find a reason to keep living. By calling 777 you'll be connected to a skilled, trained counselor at a crisis center in your area. INPATIENT DISCHARGE INSTRUCTIONS SIGNATURE PAGE BHAVANI HUNTER Location:[facility] Registration Date and Time:03/12/2024 11:32 EDT Primary Care Physician: Not on Staff, PCP Attending Physician: Weston BAROBZA, Lyle Kirk, I BHAVANI HUNTER, have received the above patient education materials/instructions and have verbalized understanding. If ambulance or transport services are being used I further acknowledge being given a choice of service. ?? If you need to contact me, please call me at this number: . Patient/Device Sales Consultant Name: Patient/Device Sales Consultant Signature: Relationship to Patient: Witness Name/Signature: Date: * Sully Pat RN: PERFORM Event Display: Patient Education Leaflets Authored Date: [id number] M-Groin I Discharge Instructions ?? 179 Groin Discharge Instructions No heavy lifting over 10 pounds (for example: gallon of milk) 1 week following the procedure; gradually increase normal activity over the next 5 days. Avoid straining/pushing when moving bowels You may feel like resting more after your procedure. Slowly start to do more each day. Rest when you feel it is needed. Make sure to look at your procedure site every day until it is completely healed. You may see bruising at the puncture site and that is common after the procedure. You may shower the day after your procedure. Remove the band aid before showering. Wash the area gently with soap and water. Leave open to air. Do not take tub baths, hot tubs, soaking of the puncture site or swimming for 1 week. Do not put any creams, powders or lotions on your puncture site You may resume sexual activity the day after your procedure; avoid bending the hip on ?? the side of the groin puncture excessively and any strenuous positions for 1 week. Call your doctor if your procedure site develops any of the following: ??? New onset severe pain ??? New onset lump or swelling ??? Bleeding that does not stop with lightpressure ? * Sully Pat RN: PERFORM Event Display: Patient Education Leaflets Authored Date: [id number] Discharge Instructions for Catheter Ablation ?? [address] Discharge Instructions for Catheter Ablation You have had a procedure called catheter ablation. It was??used to treat an abnormal heartbeat (arrhythmia). This procedure destroyed (ablated) the cells in your heart that were causing your heart rhythm problem. During the procedure, the healthcare provider put a thin,??flexible??wire (catheter)??into a blood vessel in your groin. You may have also had a catheter placed through a vein in your neck. The provider then threaded the catheter to your heart and destroyed the cells causing the problem. Home care Here are recommendations for care at home:? Make arrangements for someone to drive you home after the procedure. This is you will be given medicine to relax you (sedation). Your healthcare provider may tell you not to??drive for 24 to 48 hours after the procedure. ??? Expect to be able to go back to your normal daily activities in the next 1 to 2 days. These??include walking, climbing stairs, and doing light wage conciliator. ??? Don't do any heavy physical activity or excessive bending atthe waist for several days after the procedure. This will allow your body to heal. ??? Don't lift heavy objects for a period of time after your ablation. Talk with your healthcare provider about any specific limits you need to follow. Ask your provider when it is OK to lift heavy objects and returnto physical activity. ??? Ask your healthcare provider when you can??return to work. ??? Check the area where the catheter was inserted for signs of infection every day for a week. Keep the site dry for 1 to 2 days or as instructed. Signs of infection include redness, swelling, drainage, or warmth at the incision site.??Take your temperature if you feel you may have a fever. Let your provider know if you develop any symptoms of infection or see any discharge from your site. ??? Take your medicines exactly as directed. Don???t skip doses. You may need to make some changes in your medicines because of the ablation procedure. Be sure to go over your medicine instructions with your healthcare pr ovider before you are discharged. ??? Learn to take your own pulse. Keep a record of your results. Ask your healthcare provider which readings mean that you need medical attention. ?? Follow-up care Make a follow-up appointment as directed by your healthcare provider. Your provider will check how the catheter site is healing. In many cases, one ablation is enough to treat an arrhythmia. But sometimes the problem comes back or another problem is found. If this happens, you may need a second procedure. ?? When to call your healthcare provider Call your healthcare provider right away if you have any of the following: ??? Redness, pain, swelling, bleeding, or drainage from the area where the catheter was put in ??? Temperature of 100.4??F (38.0??C) or higher, or as directed by your healthcare provider? Suddencoldness, pain, or numbness in the leg or arm where the catheter was put in ??? Nausea or vomiting ??? Difficulty swallowing, excessive pain when swallowing, or vomiting blood ??? Heart rate that stays high Note: Ask your healthcare provider what to expect about your heartbeat. Sometimes the irregularity goes away right after the procedure. Other times it may take longer to go away. ?? Call 911 Call 911 right away if you notice: ??? Bleeding from the puncture site does not slow down when you press on it firmly ??? Chest pain, shortness of breath, or dizziness ??? Sudden numbness or weakness, especially on one side of the body, or difficulty speaking ??? Sudden loss of consciousness/responsiveness ?? Last Reviewed Date: 2021 ?? 7858-1226 [employer]. All rights reserved. This information is not intended as a substitute for professional medical care. Always follow your healthcare professional's instructions. ?? * Adilia SIGALA Sully: PERFORM Event Display: Patient Education Leaflets Authored Date: [id number] Anesthesia: General Anesthesia ?? [address] Anesthesia: General Anesthesia You???re due to have surgery. During surgery, you???ll be given medicine called anesthesia or anesthetic. This will keep you comfortable and pain-free. Your??anesthesia provider??will use general anesthesia . You are watched continuously during your procedure by your anesthesia provider. What is general anesthesia? General anesthesia puts you into a state like deep sleep. It goes into the bloodstream (IV anesthetics), into the lungs (gas anesthetics),or both. You feel nothing during the procedure. You won't remember it either. During the procedure, the anesthesia provider monitors you continuously. They trackyour heart rate and rhythm, blood pressure, breathing, and blood oxygen. ??? IV anesthetics. IV anesthetics are given through an IV (intravenous) line in your arm. They???re often given first. This is so you're asleep before a gas anesthetic is started. Some kinds of IV anesthetics ease pain. Others relax you. Your healthcare provider will decide which kind is best in your case. ??? Gas anesthetics. Gas anesthetics are breathed into the lungs. They're often used to keep you asleep. They can be given through a face mask. Or they can be given through a tube placed in your voice box (larynx) or breathing tube (trachea). o Face mask. Your anesthesia provider will most likely place the face maskover your nose and mouth while you???re still awake. You???ll breathe oxygen through the mask as your IV anesthetic is started. Gas anesthetic may be added through the mask. o Tube in the larynx or trachea. The tube will be inserted into your throat after you???re asleep. ?? Anesthesia tools and medicines You will likely have: ??? IV anesthetics. These are put into an IV line into your bloodstream. ??? Gas anesthetics.??You breathe these??anesthetics??into your lungs. Then they pass into your bloodstream. ??? Pulse oximeter. This is a small clip that's attached to??the end of your finger. It measures your blood oxygen level. ??? Electrocardiography leads (electrodes). ??These are small sticky padsthat are placed??on your chest. They record your heart rate and rhythm. ??? Blood pressure cuff. This reads your blood pressure. ?? Risks and possible complications General anesthesia has some risks. These include: ??? Breathing problems ??? Upset stomach (nausea)and vomiting ??? Sore throat or hoarseness (usually temporary) ??? Allergic reaction to the anesthetic ??? Irregular heartbeat (rare) ??? Cardiac arrest (rare) ?? Anesthesia safety ??? Follow any directions you're given for not eating or drinking before your procedure. ??? Tell your healthcare provider what medicines??you take. This includes prescription and [id number]-[id number] medicines. It also includes vitamins, herbs, and other supplements. You'll be asked when those were last taken. ??? Have a trusted adult drive you home after the procedure. ??? For thefirst 24 hours after your surgery: o Don't drive or use heavy equipment. o Don't make important decisions or sign legal documents. If important decisions or signing legal documents is necessary during the first 24 hours after surgery, have a trusted family member or spouse act on your behalf. o Don't drink alcohol. o Have??a responsible adult??stay with you.??They can watch for problems and help keep you safe. ?? Last Reviewed Date: 2024 ?? [employer]. All rights reserved. This information is not intended as a substitute for professional medical care. Always follow your healthcare professional's instructions. ?? Patient Care team information Care Team Personnel Name: Veda Vazquez RN Position: [facility] RN Member Role: Primary Care Nurse Name: Dana Dodd Position: [facility] RN Supv Member Role: Primary Care Nurse Name: Mary King RN Position: [facility] RN Member Role: Primary Care Nurse Name: Kendra Hagan RN Position: [facility] RN Member Role: Primary Care Nurse Name: Karime Bailey Position: [facility] RN Supv Member Role: Primary Care Nurse Name: Not on Staff, PCP Position: [facility] Physician (General Medicine) Member Role: PCP Name: Sina Robles RN Position: [facility] RN Member Role: Primary Care Nurse Care Team Related Persons Name: ELISE DELGADO Address: home [address] [place] [id number] Name: ELISE MONTERO Address: home [address] [address]
--- OUTSIDE RECORDS SUMMARY | 2024-09-06 10:44 | XMS_ITS | Continuity of Care Document ---
Author Organization [facility] Address [address] [place] [address]- Care Team Providers Care Business Records Manager Name Role Phone Not on Staff, PCP Primary Care Physician Unavail able [place] [facility] [place] 12/19/23 - 01/18/[address] [address]- Attending Physician: Diaz Delaney Admitting Physician: AdmDiaz lopez Referring Physician: AdmtrDiaz Allergies, Adverse Reactions, Alerts [...] 0 Refills, Maintenance, 08/08/23 10:10:00 EDT, Tablet, [facility], Partial fill upon patient [...] Related Persons Name: ELISE DELGADO Address: home [address] [place] [address] Name: ELISE MONTERO Address: home [address] [place] [address]
--- OUTSIDE RECORDS SUMMARY | 2024-09-06 10:44 | XMS_ITS | Continuity of Care Document ---
Author Organization [facility] Primary [facility] [place] Address [address] [place] [address]- Care Team Providers Care Software Test Analyst Name Role Phone Not on Staff, PCP Primary Care Physician Unavail able Encounter [facility] Date(s): 05/10/24 - 07/03/24 [facility] [address] [place] [address]- Attending Physician: Ana Patel MD Allergies, Adverse Reactions, Alerts No Known Medication Allergies Immunizations Given and Recorded Vaccine Date Status Refusal Reason [id number] 12y+ bivalent booster vax 01/23/23 Recorded SARS-CoV-2 (COVID-19) mRNA BNT-162b2 vac 11/27/22 Recorded SARS-CoV-2 (COVID-19) mRNA BNT-162b2 vac 11/06/22 Recorded Medications amiodarone 200 mg oral tablet 400 mg, By Mouth, Daily, # 90 tablet, Refills 3, Tot. Refills 3, Maintenance, 08/25/23 15:55:00 EST, Route to Pharmacy Electronically, [facility]/pharmacy #[id number], Partial fill upon patient request if the prescription is for a schedule II opioid drug., 175, cm... Start Date: 08/25/23 Stop Date: 08/19/24 Status: Ordered carvedilol 12.5 mg oral tablet 12.5 mg, 1, tablet, By Mouth, 2 times a day, # 60 tablet, Refills 3, Tot. Refills 3, Maintenance, 08/19/23 12:23:00 EST, Route to Pharmacy Electronically, [facility]/pharmacy #[id number], Partial fill upon patient request if the prescription is for a schedule II o... Start Date: 08/19/23 Status: Ordered Lasix 20 mg oral tablet 20 mg, 1, tablet, By Mouth, Daily, # 90 tablet, Refills 3, Tot. Refills 3, Maintenance, 08/25/23 15:55:00 EST, Route to Pharmacy Electronically, [facility]/pharmacy #[id number], Partial fill upon patient request if the prescription is for a schedule II opioid drug... Start Date: 08/25/23 Stop Date: 08/19/24 Status: Ordered levothyroxine 75 mcg (0.075 mg) oral tablet = 75 mcg, By Mouth, Daily, # 90 each, 0 Refills, Maintenance, 08/08/23 10:10:00 EDT, Tablet, [facility], Partial fill upon patient [...] tablet, 2 Refills, Maintenance, 03/12/24 16:18:00EDT, Tablet, [facility], Partial fill upon patient request [...] fraction he underwent ICD implantation with a [employer] device and was discharged from the hospital 3Cardiology note from 08/2023 notes: nonischemic cardiomyopathy with significantly reduced EF 4per EP procedure note: Ablation:Afib Ablation, Pulse Field Ablation (PFA) Patient Care team information Care Team Personnel Name: Veda Vazquez RN Position: S RN Member Role: Primary Care Nurse Name: Daan Dodd Position: S RN Supv Member Role: Primary Care Nurse Name: Mary King RN Position: S RN Member Role: Primary Care Nurse Name: Kendra Hagan RN Position: S RN Member Role: Primary Care Nurse Name: Karime Bailey Position: S RN Supv Member Role: Primary Care Nurse Name: Not on Staff, PCP Position: [facility] Physician (General Medicine) Member Role: PCP Name: Sina Robles RN Position: S RN Member Role: Primary Care Nurse Care Team Related Persons Name: ELISE MONTERO Address: [address] [address]
--- OUTSIDE RECORDS SUMMARY | 2024-09-06 10:44 | XMS_ITS | Continuity of Care Document ---
Author Organization [facility] Address [address] [place] [address]- Care Team Providers Care Slot Supervisor Name Role Phone Not on Staff, PCP Primary Care Physician Unavail able [place] [facility] [place] 12/22/23 - 01/21/24 [facility] [address] [place] [address]- [place] Allergies, Adverse Reactions, Alerts No Known Medication Allergies Medications amiodarone 200 mg oral tablet 400 mg, By Mouth, Daily, # 90 tablet, Refills 3, Tot. Refills 3, Maintenance, 08/25/23 15:55:00 EST, Route to Pharmacy Electronically, [facility]/pharmacy #[id number], Partial fill upon patient request if the prescription is for a schedule II opioid drug., 175, cm... Start Date: 08/25/23 Stop Date: 08/19/24 Status: Ordered carvedilol 12.5 mg oral tablet 12.5 mg, 1, tablet, By Mouth, 2 times a day, # 60 tablet, Refills 3, Tot. Refills 3, Maintenance, 08/19/23 12:23:00 EST, Route to Pharmacy Electronically, [facility]/pharmacy #[id number], Partial fill upon patient request if the prescription is for a schedule II o... Start Date: 08/19/23 Status: Ordered Lasix 20 mg oral tablet 20 mg, 1, tablet, By Mouth, Daily, # 90 tablet, Refills 3, Tot. Refills 3, Maintenance, 08/25/23 15:55:00 EST, Route to Pharmacy Electronically, [facility]/pharmacy #[id number], Partial fill upon patient request if the prescription is for a schedule II opioid drug... Start Date: 08/25/23 Stop Date: 08/19/24 Status: Ordered levothyroxine 75 mcg (0.075 mg) oral tablet = 75 mcg, By Mouth, Daily, # 90 each, 0 Refills, Maintenance, 08/08/23 10:10:00 EDT, Tablet, [facility], Partial fill upon patient request [...] Nurse Name: Not on Staff, PCP Position: [facility] Physician (General Medicine) Member Role: PCP Name: Sina Robles Position: S RN Member Role: Primary Care Nurse Care Team Related Persons Name: ELISE DELGADO Address: [address] [address] Name: ELISE MONTERO Address: home [address] [place] [id number]
--- OUTSIDE RECORDS SUMMARY | 2024-09-06 10:44 | XMS_ITS | Continuity of Care Document ---
Author Organization [facility] Address [address] [place] [address]- Care Team Providers Care Otr Flatbed Driver Name Role Phone Not on Staff, PCP Primary Care Physician Unavail able Encounter [facility] Date(s): 01/09/24 - 02/08/24 [facility] [address] [place] [phone] Attending Physician: Diaz Delaney Admitting Physician: AdmDiaz lopez Referring Physician: AdmtrDiaz Allergies, Adverse Reactions, Alerts No Known Medication Allergies Medications amiodarone 200 mg oral tablet 400 mg, By Mouth, Daily, # 90 tablet, Refills 3, Tot. Refills 3, Maintenance, 08/25/23 15:55:00 EST, Route to Pharmacy Electronically, [facility]/pharmacy #[id number], Partial fill upon patient request if the prescription is for a schedule II opioid drug., 175, cm... Start Date: 08/25/23 Stop Date: 08/19/24 Status: Ordered carvedilol 12.5 mg oral tablet 12.5 mg, 1, tablet, By Mouth, 2 times a day, # 60 tablet, Refills 3, Tot. Refills 3, Maintenance, 08/19/23 12:23:00 EST, Route to Pharmacy Electronically, [facility]/pharmacy #[id number], Partial fill upon patient request if the prescription is for a schedule II o... Start Date: 08/19/23 Status: Ordered Lasix 20 mg oral tablet 20 mg, 1, tablet, By Mouth, Daily, # 90 tablet, Refills 3, Tot. Refills 3, Maintenance, 08/25/23 15:55:00 EST, Route to Pharmacy Electronically, [facility]/pharmacy #[id number], Partial fill upon patient request if the prescription is for a schedule II opioid drug... Start Date: 08/25/23 Stop Date: 08/19/24 Status: Ordered levothyroxine 75 mcg (0.075 mg) oral tablet = 75 mcg, By Mouth, Daily, # 90 each, 0 Refills, Maintenance, 08/08/23 10:10:00 EDT, Tablet, [facility], Partial fill upon patient request if the prescription is for a schedule II opioid drug., 175, cm, 08/08/23 4:31:00 EDT, Height Start Date: 08/08/23 Stop Date: 11/06/23 Status: Ordered Patient Care team information Care Team Personnel Name: Taylor SIGALA, Veda Position: S RN Member Role: Primary Care Nurse Name: Dana Dodd Position: [facility] RN Supv Member Role: Primary Care Nurse Name: Mary King RN Position: S RN Member Role: Primary Care Nurse Name: Kendra Hagan RN Position: S RN Member Role: Primary Care Nurse Name: Karime Bailey Position: [facility] RN Supv Member Role: Primary Care Nurse Name: Brandon Echeverria LPN Position: S RN Member Role: Primary Care Nurse Name: Not on Staff, PCP Position: S Physician (General Medicine) Member Role: PCP Name: Sina Robles Position: [facility] RN Member Role: Primary Care Nurse Care Team Related Persons Name: ELISE DELGADO Address: home [address] [place] [address] Name: ELISE MONTERO Address: home [address] [place] [address]
--- OUTSIDE RECORDS SUMMARY | 2024-09-06 10:44 | XMS_ITS | Continuity of Care Document ---
Author Organization [facility] Address [address] [place] [address]- Care Team Providers Care Ice Sculptor Name Role Phone Not on Staff, PCP Primary Care Physician Unavail able [place] [facility] [place] 10/19/23 [facility] [address] [place] [address]- [place] Attending Physician: Diaz Delaney Admitting Physician: Diaz [...] 0 Refills, Maintenance, 08/08/23 10:10:00 EDT, Tablet, [facility], Partial fill upon [...] 08/25/23 15:56:00 EST, Route to Pharmacy Electronically, [facility]/pharmacy #[id number], Partial fill upon patient request if the [...] Related Persons Name: ELISE DELGADO Address: home [address] [place] [address] Name: ELISE MONTERO Address: home [address] [place] [address]
--- OUTSIDE RECORDS SUMMARY | 2024-09-06 10:44 | XMS_ITS | Continuity of Care Document ---
Author Organization [facility] Address [address] [place] [address]- Care Team Providers Care Proposal Development Manager Name Role Phone Not on Staff, PCP Primary Care Physician Unavail able [place] [facility] [place] 12/24/[place] [facility] [address] [place] [address]- Attending Physician: Stone Santos MD Admitting Physician: Stone Santos MD Allergies, Adverse Reactions, Alerts No Known Medication Allergies Medications amiodarone 200 mg oral tablet 400 mg, By Mouth, Daily, # 90 tablet, Refills 3, Tot. Refills 3, Maintenance, 08/25/23 15:55:00 EST, Route to Pharmacy Electronically, [facility]/pharmacy #[id number], Partial fill upon patient request if the prescription is for a schedule II opioid drug., 175, cm... Start Date: 08/25/23 Stop Date: 08/19/24 Status: Ordered carvedilol 12.5 mg oral tablet 12.5 mg, 1, tablet, By Mouth, 2 times a day, # 60 tablet, Refills 3, Tot. Refills 3, Maintenance, 08/19/23 12:23:00 EST, Route to Pharmacy Electronically, [facility]/pharmacy #[id number], Partial fill upon patient request if the prescription is for a schedule II o... Start Date: 08/19/23 Status: Ordered Lasix 20 mg oral tablet 20 mg, 1, tablet, By Mouth, Daily, # 90 tablet, Refills 3, Tot. Refills 3, Maintenance, 08/25/23 15:55:00 EST, Route to Pharmacy Electronically, [facility]/pharmacy #[id number], Partial fill upon patient request if the prescription is for a schedule II opioid drug... Start Date: 08/25/23 Stop Date: 08/19/24 Status: Ordered levothyroxine 75 mcg (0.075 mg) oral tablet = 75 mcg, By Mouth, Daily, # 90 each, 0 Refills, Maintenance, 08/08/23 10:10:00 EDT, Tablet, [facility], Partial fill upon patient [...] Related Persons Name: ELISE DELGADO Address: home [address] [place] [id number] Name: ELISE MONTERO Address: home [address] [place] [address]
--- OUTSIDE RECORDS SUMMARY | 2024-09-06 10:44 | XMS_ITS | Continuity of Care Document ---
Author Organization [facility] Address [address] [place] [address]- Care Team Providers Care Alliance Director Name Role Phone Not on Staff, PCP Primary Care Physician Unavail able Encounter [facility] [place] Date(s): 09/22/23 - 10/22/23 [facility] [address] [place] [address]- Allergies, Adverse Reactions, Alerts No Known Medication Allergies Medications amiodarone 200 mg oral tablet 400 mg, By Mouth, Daily, # 90 tablet, Refills 3, Tot. Refills 3, Maintenance, 08/25/23 15:55:00 EST, Route to Pharmacy Electronically, [facility]/pharmacy #[id number], Partial fill upon patient [...] 08/25/23 15:55:00 EST, Route to Pharmacy Electronically, [facility]/pharmacy #[id number], Partial fill upon patient request if the prescription is for a schedule II opioid drug... Start Date: 08/25/23 Stop Date: 08/19/24 Status: Ordered levothyroxine 75 mcg (0.075 mg) oral tablet = 75 mcg, By Mouth, Daily, # 90 each, 0 Refills, Maintenance, 08/08/23 10:10:00 EDT, Tablet, [facility], Partial fill upon patient [...] 08/25/23 15:56:00 EST, Route to Pharmacy Electronically, [facility]/pharmacy #[id number], Partial fill upon patient request if the prescription is for a schedule II opioid drug., 17... Start Date: 08/25/23 Stop Date: 08/19/24 Status: Ordered Patient Care team information Care Team Personnel Name: Veda Vazquez RN Position: [facility] RN Member Role: Primary Care Nurse Name: Dana Dodd Position: [facility] RN Supv Member Role: Primary Care Nurse Name: Mary King RN Position: S RN Member Role: Primary Care Nurse Name: Kendra Hagan RN Position: [facility] RN Member Role: Primary Care Nurse Name: Karime Bailey Position: S RN Supv Member Role: Primary Care Nurse Name: Not on Staff, PCP Position: [facility] Physician (General Medicine) Member Role: PCP Name: Sina Robles Position: S RN Member Role: Primary Care Nurse Care Team Related Persons Name: ELISE DELGADO Address: home [address] [place] [address] Name: ELISE MONTERO Address: home [address] [address]
--- OUTSIDE RECORDS SUMMARY | 2024-09-06 10:44 | XMS_ITS | Continuity of Care Document ---
Author Organization [facility] Primary [facility] [place] Address [address] [place] [address]- Care Team Providers Care Merchandise Flow Team Leader Name Role Phone Not on Staff, PCP Primary Care Physician Unavail able Encounter [facility] Date(s): 05/10/24 - 06/09/24 [facility] [address] [place], [place] [address] Allergies, Adverse Reactions, Alerts No Known Medication Allergies Immunizations Given and Recorded Vaccine Date Status Refusal Reason [id number] 12y+ bivalent booster vax 01/23/23 Recorded SARS-CoV-2 (COVID-19) mRNA BNT-162b2 vac 11/27/22 Recorded SARS-CoV-2 (COVID-19) mRNA BNT-162b2 vac 11/06/22 Recorded Medications amiodarone 200 mg oral tablet 400 mg, By Mouth, Daily, # 90 tablet, Refills 3, Tot. Refills 3, Maintenance, 08/25/23 15:55:00 EST, Route to Pharmacy Electronically, [facility]/pharmacy #[id number], Partial fill upon patient request if the prescription is for a schedule II opioid drug., 175, cm... Start Date: 08/25/23 Stop Date: 08/19/24 Status: Ordered carvedilol 12.5 mg oral tablet 12.5 mg, 1, tablet, By Mouth, 2 times a day, # 60 tablet, Refills 3, Tot. Refills 3, Maintenance, 08/19/23 12:23:00 EST, Route to Pharmacy Electronically, [facility]/pharmacy #[id number], Partial fill upon patient request if the prescription is for a schedule II o... Start Date: 08/19/23 Status: Ordered Lasix 20 mg oral tablet 20 mg, 1, tablet, By Mouth, Daily, # 90 tablet, Refills 3, Tot. Refills 3, Maintenance, 08/25/23 15:55:00 EST, Route to Pharmacy Electronically, [facility]/pharmacy #[id number], Partial fill upon patient request if the prescription is for a schedule II opioid drug... Start Date: 08/25/23 Stop Date: 08/19/24 Status: Ordered levothyroxine 75 mcg (0.075 mg) oral tablet = 75 mcg, By Mouth, Daily, # 90 each, 0 Refills, Maintenance, 08/08/23 10:10:00 EDT, Tablet, [facility], Partial fill upon patient [...] tablet, 2 Refills, Maintenance, 03/12/24 16:18:00EDT, Tablet, [facility], Partial fill upon patient [...] fraction he underwent ICD implantation with a [employer] device and was discharged from the hospital 3Cardiology note from 08/2023 notes: nonischemic cardiomyopathy with significantly reduced EF 4per EP procedure note: Ablation:Afib Ablation, Pulse Field Ablation (PFA) Procedures Procedure Date Related Diagnosis Body Site Status Ablation 1 03/12/24 Completed Defibrillator, device 2 07/2023 C ompleted 1per EP procedure note: Ablation:Afib Ablation, Pulse Field Ablation (PFA) 2Per Cardiology note: ICD implantation with a [employer] device and was discharged from the hospital Patient Care team information Care Team Personnel Name: Veda Vazquez RN Position: [facility] RN Member Role: Primary Care Nurse Name: Dana Dodd Position: S RN Supv Member Role: Primary Care Nurse Name: Mary King RN Position: S RN Member Role: Primary Care Nurse Name: Kendra Hagan RN Position: S RN Member Role: Primary Care Nurse Name: Karime Bailey Position: S RN Supv Member Role: Primary Care Nurse Name: Not on Staff, PCP Position: [facility] Physician (General Medicine) Member Role: PCP Name: Sina Robles RN Position: S RN Member Role: Primary Care Nurse Care Team Related Persons Name: ELISE MONTERO Address: [address] [address]
[2024-09-06 10:46] LABS: Cholesterol 165 mg/dL (<200); HDL Cholesterol 56 mg/dL (>40); LDL Cholesterol Calculated 98 mg/dL (<100); Triglycerides 58 mg/dL (<150)
[2024-09-06] MEDS: Enoxaparin Sodium 40 MG/0.4 ML SYRINGE SUBCUT (10:52)
[2024-09-06] MEDS: Aspirin 300 MG SUPP.RECT 325 MG PR (10:52)
[2024-09-06] MEDS: Lactated Ringers 1,000 ML 100 ML IVCONT (10:52)
[2024-09-06 11:09] LABS: Thyroid Stimulating Hormone 0.26 uIU/mL (0.32-4.0)
--- NOTE | 2024-09-06 15:44 | MHC.SLORD ---
Speech Language Pathology Order Status: Received order for AIDS NURSE consult. AIDS NURSE attempted to see patient for bedside dysphagia eval. Patient was lying on his side sleeping. Patient was not responding to questions, at one point mumbled, but quickly falling back asleep, would not open eyes or follow commands. Not appropriate for feeding d/t decreased mentation. Eval deferred for tomorrow a.m. Notified MD & RN via Josephine Message.
[2024-09-06] MEDS: 0.9 % Sodium Chloride Flush 3 ML SYRINGE IVFLUSH (18:08)
--- NOTE | 2024-09-06 19:14 | PC.NURSE ---
Pt soiled in bed. Large amount of liquid stool. Pt and bed cleaned and changed.
--- NOTE | 2024-09-06 21:52 | PC.NURSE ---
Current bag of LR still running showing late administration on DEC. Will scan in next bag once this one finishes.
[2024-09-07] VITALS (11 sets, daily range): BP systolic 105–149; BP diastolic 71–102; PULSE 74–129; RESP 16–29; TEMP 36.6–37.2; O2SAT 93–98
[2024-09-07] MEDS: Lactated Ringers 1,000 ML 100 ML IVCONT ×3 (01:55→19:58)
--- NOTE | 2024-09-07 04:01 | PC.NURSE ---
Complete bed and ana care completed Plan of care ongoing.
[2024-09-07 05:07] LABS: MANUAL DIFF FLAG NO
[2024-09-07 05:10] LABS: Basophils Absolute Auto 0.1 X10*3/uL (0.0-0.2); Basophils Percent Auto 0.6 % (0-2); Eosinophils Absolute Auto 0.1 X10*3/uL (0.0-0.4); Eosinophils Percent Auto 0.7 % (0-4); Hematocrit 51.7 % (42.0-52.0); Hemoglobin 16.7 g/dl (14.0-18.0); Imm Gran Abs Auto 0.06 X10*3/uL (0.00-0.03); Imm Gran Pct Auto 0.4 % (0.0-0.4); Lymphocytes Absolute Auto 1.7 X10*3/uL (1.2-4.9); Lymphocytes Percent Auto 10.9 % (20-40); Mean Corpuscular HGB Conc 32.3 g/dl (31.0-36.0); Mean Corpuscular Hemoglobin 30.5 pg (27.0-33.0); Mean Corpuscular Volume 94.3 fL (80.0-98.0); Mean Platelet Volume 10.5 fL (9.4-12.4); Monocytes Absolute Auto 0.5 X10*3/uL (0.1-1.2); Neutrophils Absolute Auto 13.5 x10*3/uL (2.0-8.3); Neutrophils Percent Auto 84.4 % (45-73); Platelet Count 312 X10*3/uL (160-400); Red Blood Count 5.48 X10*6/uL (4.60-5.80); Red Cell Distribution Width 14.1 % (11.0-16.0)
--- NOTE | 2024-09-07 07:52 | P.PNIM_ITS ---
Subjective Subjective Date of Service: 09/07/24 Interval History: f/u on acute cva history o Physical Exam 2 Vital Signs: Vital Signs: Last Vital Signs Temp 98.3 F 09/07/24 07:40 Pulse 129 H 09/07/24 07:40 Resp 22 H 09/07/24 07:40 BP 129/102 H 09/07/24 07:40 Pulse Ox 93 09/07/24 07:40 O2 Del Method Room Air 09/07/24 07:40 O2 Flow Rate 2 09/07/24 05:59 BMI result Body Mass Index 24.8 Const: Other: Appearance: more arousable, no distress Neck: Normal inspection. Neck supple. No lymph nodes noted. No crepitus CVS: Normal heart rate and rhythm. Pulses normal. Normal S1 and S2 Respiratory: No respiratory distress. Breath sounds normal. No Wheezing. No rales Abdomen: Soft and nontender. No rigidity. No distention. Skin: Skin warm and dry. Normal skin color. Normal skin turgor. Extremities: No lower extremity edema. No Lacerations. No Rash Neuro: movement intact, speech a bit muffle Psych: calm, cooperative, normal affect Objective Data Active Medications Acetaminophen (Acetaminophen 325 Mg Tablet) 650 mg PO Q6H PRN PRN Reason: Pain, Mild (Pain Scale 1-3), fever or headache Calcium Carbonate (Calcium Carbonate 750 Mg Tab.Chew) 750 mg PO Q4H PRN PRN Reason: Heartburn Enoxaparin Sodium (Enoxaparin Sodium 40 Mg/0.4 Ml Syringe) 40 mg SUBCUT Q24H [facility] Last Admin: 09/06/24 10:52 Dose: 40 mg Documented By: MATEO Lactated Ringer's (Lr) 1,000 mls @ 100 mls/hr IVCONT .Q10H [facility] Last Admin: 09/07/24 01:55 Dose: 100 mls/hr Documented By: RADHA Magnesium Hydroxide (Milk Of Magnesia 30 Ml Oral.Susp) 30 ml PO DAILY PRN PRN Reason: Constipation Melatonin (Melatonin 3 Mg Tablet) 6 mg PO BEDTIME PRN PRN Reason: Insomnia Ondansetron HCl (Ondansetron Hcl 4 Mg/2 Ml Vial) 4 mg IVPUSH Q8H PRN PRN Reason: Nausea and Vomiting Pravastatin Sodium (Pravastatin Sodium 40 Mg Tablet) 40 mg PO DAILY EDMUND Sodium Chloride (0.9 % Sodium Chloride Flush 3 Ml Syringe) 3 ml IVFLUSH QSHIFT EDMUND Last Admin: 09/07/24 00:52 Dose: Not Given Documented By: RADHA Non-Admin Reason: IV Running Labs 09/07/24 03:52 09/06/24 05:48 Labs: Laboratory Results - last 24 hr 09/06/24 09/06/24 09/07/24 05:48 08:47 03:52 MCV 94.3 MCH 30.5 MCHC 32.3 RDW 14.1 Plt Count 312 MPV 10.5 Immature Gran % (Auto) 0.4 Neut % (Auto) 84.4 H Lymph % (Auto) 10.9 L [place] % (Auto) 3.0 Eos % (Auto) 0.7 Baso % (Auto) 0.6 Lymph # (Auto) 1.7 [place] # (Auto) 0.5 Eos # (Auto) 0.1 Baso # (Auto) 0.1 Abs Immat Gran (auto) 0.06 H Absolute Neuts (auto) 13.5 H Absolute Nucleated RBC 0.000 Nucleated RBC % (auto) 0.0 Triglycerides 58 Cholesterol 165 LDL Cholesterol, Calc 98 HDL Cholesterol 56 TSH 0.26 L Urine Color Yellow Urine Appearance Cloudy Urine pH >= 9.0 Ur Specific [place] 1.020 Urine Protein Negative Urine Glucose (UA) Negative Urine Ketones Negative Urine Blood Negative Urine Nitrite Negative Ur Leukocyte Esterase Negative Urine Opiates Screen POSITIVE H Ur Buprenorphine Scrn Not Detected Ur Oxycodone Screen Not Detected Urine Methadone Screen Not Detected Urine Fentanyl Screen POSITIVE H Ur Barbiturates Screen Not Detected Ur Phencyclidine Scrn Not Detected Ur Amphetamines Screen Not Detected U Benzodiazepines Scrn POSITIVE H Urine Cocaine Screen POSITIVE H U Marijuana (THC) Screen Not Detected Assessment and Plan (1) Polysubstance use disorder: Status: Acute (2) Paroxysmal A-fib: Status: Acute (3) Acute CVA (cerebrovascular accident): Status: Acute Plan 49-year-old male with a past medical history significant substance use, paroxysmal atrial fibrillation ventricular fibrillation s/p defibrillator, hypothyroidism and hypertension, presented to the ED after a presumed drug overdose. EKG with sinus tachycardia, CTA head and neck negative, head CT with acute medial and central left temporal lobe infarct. Given that the timeline is unclear his unresponsiveness, patient was not given TNK. CVA - L medial and central temporal lobe infarct in setting of h/o afib and non- compliant with meds. -med management with ASA, statin and BP control -PT/OT, Speech eval -Neuro recommends MRI, anticoagulation for afib paroxysmal a fib - non compliant with meds, xarelto last filled in April for 2 months, amio not filled since april as well -rate uncontrolled, start metoproo 25 q6 -restart eliquis -cardiology consult - EKG with sinus tach v fib -- s/p defibrillator, to be interogated HTN - hold meds for permissive hypertensive TONEY - addiction med consult, started on suboxone presumed full code as pt is unresponsive VTE prophy: lovenox management of new CVA after recent OD, requiring admission for at least 2 midnights stay for treatment and monitoring. Quality Stroke Does the patient have a stroke diagnosis?: Yes Reason for No Anti-thrombotic by Day Two: Contraindicated VTE Prior VTE?: No VTE Risk Level:: Medical - moderate - high VTE Device Contraindication: Treatment Not Indicated VTE Drug Contraindication: N/A - Med Ordered
--- NOTE | 2024-09-07 08:34 | P.CNNE_ITS ---
History of Present Illness Data of Consult Service Date: 09/07/24 Primary Care Provider: Unknown Physician HPI Reason for consult: Stroke 49 years old man with paroxysmal atrial fibrillation on anticoagulation but apparently not compliant with medications and polysubstance abuse who came to hospital with change in mental status and was found to be unresponsive. I saw him yesterday in emergency room and he was waking up. There was no history of any seizure disorder or physical injury. He was drowsy when I saw him. Review of Systems 2 Review of Systems: Limited but no recent trauma. He was using drugs. When I asked him what drug he was using he said heroin. [facility] Past Medical History Medical History Cardiomyopathy Atrial flutter Defibrillator discharge ICD (implantable cardioverter-defibrillator) malfunction Arrhythmia Systolic heart failure Cardiac defibrillator in place Ventricular fibrillation Polysubstance use disorder Social History Social History (System 09/06/24 @ 09:27 by Manuela Salazar) Household Members: None Housing: Homeless Do you presently have visiting nurse or other home services: No Unable to assess alcohol history related to: Refusing to respond Alcohol intake: never Patient Tobacco Use Status: Tobacco use Unknown Tobacco use type: Cigarette Cigarettes Per Day: 5 e-Cigarette/Vaping Use: Currently Using Second Hand Smoke Exposure: No Use of substances other than those prescribed or required for medical reasons: Yes Substance Use Type: Crack/Cocaine, Heroin and Marijuana Advance Directives: Yes Advance Directives on File: Yes Advance Directives Date on File: 12/26/23 Do you have a plan to hurt others: No Plan Nutrition Risks: No Nutritional Risk service: No Meds Allergies Allergy/AdvReac Type Severity Reaction Status Date / Time No Known Allergies Allergy Verified 09/06/24 09:27 Active Medications: Current Medications Acetaminophen (Acetaminophen 325 Mg Tablet) 650 mg PO Q6H PRN PRN Reason: Pain, Mild (Pain Scale 1-3), fever or headache Aspirin (Aspirin Enteric Coated 81 Mg Tablet.Dr) 81 mg PO DAILY EDMUND Calcium Carbonate (Calcium Carbonate 750 Mg Tab.Chew) 750 mg PO Q4H PRN PRN Reason: Heartburn Enoxaparin Sodium (Enoxaparin Sodium 40 Mg/0.4 Ml Syringe) 40 mg SUBCUT Q24H [facility] Last Admin: 09/06/24 10:52 Dose: 40 mg Lactated Ringer's (Lr) 1,000 mls @ 100 mls/hr IVCONT .Q10H [facility] Last Admin: 09/07/24 01:55 Dose: 100 mls/hr Magnesium Hydroxide (Milk Of Magnesia 30 Ml Oral.Susp) 30 ml PO DAILY PRN PRN Reason: Constipation Melatonin (Melatonin 3 Mg Tablet) 6 mg PO BEDTIME PRN PRN Reason: Insomnia Ondansetron HCl (Ondansetron Hcl 4 Mg/2 Ml Vial) 4 mg IVPUSH Q8H PRN PRN Reason: Nausea and Vomiting Pravastatin Sodium (Pravastatin Sodium 40 Mg Tablet) 40 mg PO DAILY [facility] Sodium Chloride (0.9 % Sodium Chloride Flush 3 Ml Syringe) 3 ml IVFLUSH QSHIFT [facility] Last Admin: 09/07/24 00:52 Dose: Not Given Home Medications ?Medication ?Instructions ?Recorded ?Confirmed ?Last Taken ?Type Unobtainable 09/06/24 09/06/24 Unknown History Physical Exam 2 Vital Signs: Vital Signs: Last Vital Signs Temp 98.3 F 09/07/24 07:40 Pulse 129 H 09/07/24 07:40 Resp 22 H 09/07/24 07:40 BP 129/102 H 09/07/24 07:40 Pulse Ox 93 09/07/24 07:40 O2 Del Method Room Air 09/07/24 07:40 O2 Flow Rate 2 09/07/24 05:59 BMI result Body Mass Index 24.8 Neuro: Other: He was drowsy but was able to answer simple questions. Spontaneity and fluency of speech were normal. He was able to repeat and name. Face seems symmetrical. There was no obvious focal arm or leg weakness. Plantars were flexor. Speech was normal. Results Labs 09/07/24 03:52 09/06/24 05:48 Labs: Short CBC 09/07/24 Range/Units 03:52 WBC 16.0 H (4.8-10.8) X10*3/uL Hgb 16.7 (14.0-18.0) g/dl Hct 51.7 (42.0-52.0) % Plt Count 312 (160-400) X10*3/uL Urine 09/06/24 Range/Units 08:47 Urine Color Yellow Urine Appearance Cloudy Urine pH >= 9.0 (5.0-9.0) Ur Specific [place] 1.020 (1.005-1.025) Urine Protein Negative (Neg-Trace) mg/dL Urine Glucose (UA) Negative (Negative) mg/dL Head CT revealed left temporal hypodensity suggestive of ischemic infarction. CTA was limited but did not reveal any obvious vascular lesion Assessment and Plan (1) Encephalopathy: Qualifiers: Encephalopathy type: toxic metabolic Qualified Code(s): G92.8 - Other toxic encephalopathy Status: Acute 49 years old man with polysubstance abuse including cocaine and fentanyl came to hospital with change in mental status. He suffered from paroxysmal atrial fibrillation but might not have been taking his medicine. Initial head CT revealed hypodensities in left temporal area suggestive of acute to subacute infarcts. If he was not taking anticoagulation, this type of infarct can very well happened. Unfortunately his tox screen was positive for multiple drugs of abuse, which likely was the main cause of encephalopathy at this time. Mainstay of management is education and proper drug detox program. As far as stroke is concerned, a noncontrast MRI of brain is recommended to time these lesions. Otherwise, anticoagulation can still continued to prevent future strokes but if he could not commit to not using cocaine type of drugs, it might be a difficult option in which case anti-platelet agent might be a safer option. Procedures Date of Service Date of Service: 09/07/24
[2024-09-07] MEDS: Pravastatin Sodium 40 MG TABLET PO (09:02)
[2024-09-07] MEDS: Aspirin Enteric Coated 81 MG TABLET.DR PO (09:02)
[2024-09-07] MEDS: Enoxaparin Sodium 40 MG/0.4 ML SYRINGE SUBCUT (09:02)
[2024-09-07] MEDS: Metoprolol Tartrate 5 MG/5 ML VIAL IVPUSH (09:03)
--- NOTE | 2024-09-07 09:13 | PC.NURSE ---
bedside swallow eval performed prior to PO medications, patient passed. alert and oriented at this time, spoke with recovery team in regards to suboxone. patient medicated per the DEC, repeat ekg to be obtained per hospitalist verbal order. rodriguez remains in place w/ approx 150mL dark output at this time
--- NOTE | 2024-09-07 09:18 | MHC.CM.PN ---
PT REPORTS HE IS HOMELESS AND STAYS EITHER WITH FRIENDS OR ON THE STREET HE IS NOT CONNECTED TO ANY COMMUNITY SERVICES AND HAS NO DME OPT WILL COMPLETE A HCP IF HE REQUIRES REHAB PLACEMENT HE DOES NOT HAVE A PCP PT CURRENTLY RECOMMENDING STR [facility] REHAB REFERRAL PLACED
--- NOTE | 2024-09-07 10:21 | HO.ADDICTCON ---
History of Present Illness Date of Service: 09/07/2024 Chief Complaint: CVA, ICD, previous Afib Reason for Consult: OUD overdose requiring narcan Sources of Information: patient interviewed and chart reviewed HPI Narrative: Patient is a 49 year old Albanian speaking male medically admitted following opioid overdose and acute CVA. Consult requested to evaluate and treat OUD --patient known to this bond underwriter and ACS from previous medical admissions. Patient seen initially seen in room one of Main ED, recovery room nurse present during interview. Patient awake, alert, engaged in interview, but providing minimal responses. He states he does not recall what occurred yesterday or why he was brought to the hospital--t/w provided patient with that information He does not recall what he used or if it was different from what he had previously been using. He was not aware that he was unresponsive or that narcan was administered. He states he is using approx 1/2 bundle of fentanyl daily and crack cocaine as well denies any alcohol or other substance use. He is guarded and brief in his responses related to ongoing substance use. Reports he is not currently engaged in treatment for OUD, but is requesting suboxone. Reporting chills and body aches and noted to be yawning during assessment Suboxone 12mg administered with positive effect as patient was seen a second time by t/w once on medical floor. He was awake alert, still somewhat guarded, but expressing gratitude for medication He is requesting 8mg BID as this was his dose outpatient Review of Systems Constitutional: Reports as per HPI Diagnostics Vital Signs (24Hr): Vital Signs - 24 hr 09/06/24 14:57 09/06/24 15:04 09/06/24 15:35 Temperature 98.2 F 97.3 F Pulse Rate 122 H 119 H 119 H Respiratory Rate 20 35 H Blood Pressure 131/93 H 131/93 H 131/93 H Pulse Oximetry 95 96 96 Oxygen Delivery Method Room Air Oxygen Flow Rate 09/07/24 00:00 09/07/24 00:25 09/07/24 05:59 Temperature 98.3 F 98.3 F Pulse Rate 108 H 92 116 H Respiratory Rate 23 H 26 H 29 H Blood Pressure 125/87 125/87 149/92 H Pulse Oximetry 97 98 97 Oxygen Delivery Method Room Air Room Air Nasal Cannula Oxygen Flow Rate 2 09/07/24 07:40 09/07/24 09:05 Temperature 98.3 F Pulse Rate 129 H 125 H Respiratory Rate 22 H 18 Blood Pressure 129/102 H 141/97 H Pulse Oximetry 93 98 Oxygen Delivery Method Room Air Room Air Oxygen Flow Rate BMI result Body Mass Index 24.8 Labs 09/07/24 03:52 09/06/24 05:48 Labs: Laboratory Results - last 48 hr 09/06/24 09/06/24 09/06/24 05:48 05:56 08:47 WBC 12.3 H RBC 5.23 Hgb 16.3 Hct 49.8 MCV 95.2 MCH 31.2 MCHC 32.7 RDW 14.1 Plt Count 309 MPV 9.5 Immature Gran % (Auto) 0.3 Neut % (Auto) 74.9 H Lymph % (Auto) 13.3 L Garfield % (Auto) 4.6 Eos % (Auto) 6.4 H Baso % (Auto) 0.5 Lymph # (Auto) 1.6 [place]field # (Auto) 0.6 Eos # (Auto) 0.8 H Baso # (Auto) 0.1 Abs Immat Gran (auto) 0.04 H Absolute Neuts (auto) 9.2 H Absolute Nucleated RBC 0.000 Nucleated RBC % (auto) 0.0 VBG pH 7.46 H VBG pCO2 59 VBG pO2 47 VBG HCO3 43 H VBG O2 Saturation 77.0 VBG Base Excess 16.1 Sodium 143 Potassium 4.0 Chloride 108 Carbon Dioxide 27 Anion Gap 12 BUN 11 Creatinine 0.94 Estim Creat Clear Calc 74.4 Estimated GFR > 60 Random Glucose 101 Lactic Acid 1.4 Calcium 10.5 H Magnesium 2.2 Total Bilirubin 0.4 Direct Bilirubin 0.1 AST 23 ALT 19 Alkaline Phosphatase 98 Troponin I High Sens 13.4 Total Protein 8.0 Albumin 4.1 Triglycerides 58 Cholesterol 165 LDL Cholesterol, Calc 98 HDL Cholesterol 56 TSH 0.26 L Urine Color Yellow Urine Appearance Cloudy Urine pH >= 9.0 Ur Specific Watson 1.020 Urine Protein Negative Urine Glucose (UA) Negative Urine Ketones Negative Urine Blood Negative Urine Nitrite Negative Ur Leukocyte Esterase Negative Urine Opiates Screen POSITIVE H Ur Buprenorphine Scrn Not Detected Ur Oxycodone Screen Not Detected Urine Methadone Screen Not Detected Urine Fentanyl Screen POSITIVE H Ur Barbiturates Screen Not Detected Ur Phencyclidine Scrn Not Detected Ur Amphetamines Screen Not Detected U Benzodiazepines Scrn POSITIVE H Urine Cocaine Screen POSITIVE H U Marijuana (THC) Screen Not Detected Ethyl Alcohol < 10 COVID-19 (REJI) Negative COVID-19 Clin Com See Note Influenza Type A (CHRISTIN) Negative Influenza Type B (CHRISTIN) Negative Influenza A & B Note See Note 09/07/24 03:52 WBC 16.0 H RBC 5.48 Hgb 16.7 Hct 51.7 MCV 94.3 MCH 30.5 MCHC 32.3 RDW 14.1 Plt Count 312 MPV 10.5 Immature Gran % (Auto) 0.4 Neut % (Auto) 84.4 H Lymph % (Auto) 10.9 L [place]field % (Auto) 3.0 Eos % (Auto) 0.7 Baso % (Auto) 0.6 Lymph # (Auto) 1.7 [place] # (Auto) 0.5 Eos # (Auto) 0.1 Baso # (Auto) 0.1 Abs Immat Gran (auto) 0.06 H Absolute Neuts (auto) 13.5 H Absolute Nucleated RBC 0.000 Nucleated RBC % (auto) 0.0 VBG pH VBG pCO2 VBG pO2 VBG HCO3 VBG O2 Saturation VBG Base Excess Sodium Potassium Chloride Carbon Dioxide Anion Gap BUN Creatinine Estim Creat Clear Calc Estimated GFR Random Glucose Lactic Acid Calcium Magnesium Total Bilirubin Direct Bilirubin AST ALT Alkaline Phosphatase Troponin I High Sens Total Protein Albumin Triglycerides Cholesterol LDL Cholesterol, Calc HDL Cholesterol TSH Urine Color Urine Appearance Urine pH Ur Specific Watson Urine Protein Urine Glucose (UA) Urine Ketones Urine Blood Urine Nitrite Ur Leukocyte Esterase Urine Opiates Screen Ur Buprenorphine Scrn Ur Oxycodone Screen Urine Methadone Screen Urine Fentanyl Screen Ur Barbiturates Screen Ur Phencyclidine Scrn Ur Amphetamines Screen U Benzodiazepines Scrn Urine Cocaine Screen U Marijuana (THC) Screen Ethyl Alcohol COVID-19 (REJI) COVID-19 Clin Com Influenza Type A (CHRISTIN) Influenza Type B (CHRISTIN) Influenza A & B Note Imaging Radiology Impressions: ITS Impressions Chest X-Ray 09/06/24 06:25 IMPRESSION: No acute cardiopulmonary process. Electronically signed by: Carter Hermosillo MD 09/06/2024 06:45 AM [facility] [place] 09/06/24 06:30 IMPRESSION: 1. Findings are concerning for acute medial and central left temporal pole cerebral infarction. 2. No intracranial hemorrhage or skull fracture is seen. 3. No evidence of space occupying lesion could be found. 4. Further evaluation with noncontrast MRI of brain is recommended. This critical result was discussed with Rancho Fish M.D. on 09/06/2024 at 747 hours and it was ascertained that the content and urgency of this report was understood at the time of direct communication. Electronically signed by: Bee Sanchez MD 09/06/2024 07:48 AM [facility] [place] 09/06/24 07:54 IMPRESSION: 1. The previously seen left temporal pole asymmetric decrease in attenuation is much less conspicuous on the current examination. The previous finding could be due to beam hardening artifacts. The need for MRI examination will have to be decided by clinical suspicion. 2. No intracranial hemorrhage or skull fracture is seen. 3. No evidence of space occupying or enhancing intracranial mass lesion could be found. 4. Unchanged marked right maxillary sinusitis.. EXAMINATION: CT angiogram of brain. COMPARISON: None available. FINDINGS: There is normal visualization of bilateral anterior, middle and posterior cerebral arteries, internal carotid arteries, basilar artery and terminal portions of bilateral vertebral arteries. Anterior communicating artery is normal. Bilateral posterior communicating arteries are normal. Bilateral internal carotid siphons are smoothly patent. A small right internal carotid siphon C7 segment infundibulum is seen measuring 1.7 mm in AP diameter, 1.4 mm in vertical height. Timing of the bolus allows assessment of the major dural venous sinuses. The major cerebral venous sinuses show normal contrast filling. IMPRESSION: 1. Small right internal carotid siphon infundibulum is found. 2. No focal cerebral arterial lesion or significant arterial stenosis is seen. EXAMINATION: CT angiogram of neck. COMPARISON: None available. STENOSIS MEASUREMENT: Degree of stenosis was measured and calculated based on NASCET criteria. Carotid stenosis reference using NASCET criteria: % stenosis = (1 - narrowest ICA diameter/diameter of distal cervical ICA) x 100. Mild - < 50% stenosis. Moderate - 50-69% stenosis. Severe - 70-94% stenosis. Near occlusion - 95-99% stenosis. Occluded - 100% stenosis. FINDINGS: Evaluation is limited by patient motion blurring. RIGHT SIDE: Right internal carotid artery: Smoothly patent. Right external carotid artery: Smoothly patent. Right common carotid artery: Smoothly patent. Right vertebral artery: Smoothly patent and dominant. LEFT SIDE: Left internal carotid artery: Smoothly patent. Left external carotid artery: Smoothly patent. Left common carotid artery: Smoothly patent. Left vertebral artery: Smoothly patent. At the superior mediastinum, the visualized right innominate artery, bilateral subclavian arteries and common carotid arteries are smoothly patent starting from the origin at the aortic arch. IMPRESSION: 1. Limited CT angiogram of the neck due to patient motion blurring. No evidence of significant carotid stenosis. 2. Patent bilateral vertebral arteries with right-sided dominance. Electronically signed by: Bee Sanchez MD 09/06/2024 09:17 AM [facility] [place] Status Exam Mental Status Exam Level of Consciousness: Awake and Appropriate Patient Behavior: Guarded Mood Description: Calm Affect Description: Calm Speech Pattern: Clear and Soft-Spoken Thought Process: Intact Judgement: Fair Medications Medications Current Medications Acetaminophen (Acetaminophen 325 Mg Tablet) 650 mg PO Q6H PRN PRN Reason: Pain, Mild (Pain Scale 1-3), fever or headache Aspirin (Aspirin Enteric Coated 81 Mg Tablet.) 81 mg PO DAILY [facility] Last Admin: 09/07/24 09:02 Dose: 81 mg Calcium Carbonate (Calcium Carbonate 750 Mg Tab.Chew) 750 mg PO Q4H PRN PRN Reason: Heartburn Lactated Ringer's (Lr) 1,000 mls @ 100 mls/hr IVCONT .Q10H [facility] Last Admin: 09/07/24 10:04 Dose: 100 mls/hr Magnesium Hydroxide (Milk Of Magnesia 30 Ml Oral.Susp) 30 ml PO DAILY PRN PRN Reason: Constipation Melatonin (Melatonin 3 Mg Tablet) 6 mg PO BEDTIME PRN PRN Reason: Insomnia Ondansetron HCl (Ondansetron Hcl 4 Mg/2 Ml Vial) 4 mg IVPUSH Q8H PRN PRN Reason: Nausea and Vomiting Pravastatin Sodium (Pravastatin Sodium 40 Mg Tablet) 40 mg PO DAILY [facility] Last Admin: 09/07/24 09:02 Dose: 40 mg Sodium Chloride (0.9 % Sodium Chloride Flush 3 Ml Syringe) 3 ml IVFLUSH QSHIFT [facility] Last Admin: 09/07/24 08:47 Dose: Not Given Allergies Allergies Allergy/AdvReac Type Severity Reaction Status Date / Time No Known Allergies Allergy Verified 12/02/24 09:27 Assessment & Plan Assessment & Plan (1) Opioid use disorder: Status: Acute Code(s): F11.90 - Opioid use, unspecified, uncomplicated Assessment and Plan: acute withdrawal post naloxone administration suboxone 12mg x1 with positive effect additional 4mg this evening suboxone 8mg BID starting in AM as patient reports that dose has been beneficial to him in the past narcan at discharge recovery room nurse to assist with connecting to community provider for continuation of treatment risk reduction discussion in AM as well related to ongoing substance use to subsequent health risks Total time managing care of this patient today __50__ minutes. [facility] Past Medical History Medical History Cardiomyopathy Atrial flutter Defibrillator discharge ICD (implantable cardioverter-defibrillator) malfunction Arrhythmia Systolic heart failure Cardiac defibrillator in place Ventricular fibrillation Polysubstance use disorder Social History Social History (System 09/06/24 @ 09:27 by Manuela Salazar) Household Members: None Housing: Other Housing Other:: homeless Do you presently have visiting nurse or other home services: No Unable to assess alcohol history related to: Refusing to respond Alcohol intake: never Patient Tobacco Use Status: Current everyday Tobacco user Tobacco use type: Cigarette Cigarette Packs Per Day: 1 Cigarettes Per Day: 20.0 e-Cigarette/Vaping Use: Currently Using Second Hand Smoke Exposure: No Substance Use Type: Crack/Cocaine and Heroin Advance Directives Date on File: 12/26/23 service: No
--- NOTE | 2024-09-07 11:10 | MHC.SLORD ---
Speech Language Pathology Order Status: Per RN, Pt passed nursing swallow screen, RETAIL FIELD REPRESENTATIVE not indicated.
[2024-09-07] MEDS: Buprenorphine/Naloxone 12/3 mg FILM 1 FILM SUBLINGUAL (11:47)
--- NOTE | 2024-09-07 12:46 | P.CONCA_ITS ---
History of Present Illness History of Present Illness Date of Service: 09/07/24 Requesting physician: David Grossman Chief complaint: CVA, ICD, previous Afib Narrative: [age] year gentleman presenting to [facility] with the acute stroke. He has background history of polysubstance abuse including cocaine. He is positive for multiple drugs at this point. CT scan is showing acute CVA. He is a poor historian and is denying any significant symptoms currently. History of noncompliance with medicines. Previous known history of nonischemic cardiomyopathy with cardiac arrest in 2022 when he had a primary prevention ICD placed at [facility]. Subsequently had ICD shocks from atrial fibrillation episodes and subsequently was taken for ablation in 03/25/[address] Ontiveros. After ablation he was taken off the Eliquis. He is here and unfortunately had a stroke. As mentioned he has positive for multiple drugs. [facility] Past Medical History Medical History Cardiomyopathy Atrial flutter Defibrillator discharge ICD (implantable cardioverter-defibrillator) malfunction Arrhythmia Systolic heart failure Cardiac defibrillator in place Ventricular fibrillation Polysubstance use disorder Social History Social History (System 09/06/24 @ 09:27 by Manuela Salazar) Household Members: None Housing: Homeless Do you presently have visiting nurse or other home services: No Unable to assess alcohol history related to: Refusing to respond Alcohol intake: never Patient Tobacco Use Status: Tobacco use Unknown Tobacco use type: Cigarette Cigarettes Per Day: 5 e-Cigarette/Vaping Use: Currently Using Second Hand Smoke Exposure: No Use of substances other than those prescribed or required for medical reasons: Yes Substance Use Type: Crack/Cocaine, Heroin and Marijuana Advance Directives: Yes Advance Directives on File: Yes Advance Directives Date on File: 12/26/23 Do you have a plan to hurt others: No Plan Nutrition Risks: No Nutritional Risk service: No Meds Allergies Allergy/AdvReac Type Severity Reaction Status Date / Time No Known Allergies Allergy Verified 09/06/24 09:27 Active Medications: Current Medications Acetaminophen (Acetaminophen 325 Mg Tablet) 650 mg PO Q6H PRN PRN Reason: Pain, Mild (Pain Scale 1-3), fever or headache Apixaban (Apixaban 5 Mg Tablet) 5 mg PO BID EDMUND Aspirin (Aspirin Enteric Coated 81 Mg Tablet.) 81 mg PO DAILY [facility] Last Admin: 09/07/24 09:02 Dose: 81 mg Calcium Carbonate (Calcium Carbonate 750 Mg Tab.Chew) 750 mg PO Q4H PRN PRN Reason: Heartburn Lactated Ringer's (Lr) 1,000 mls @ 100 mls/hr IVCONT .Q10H [facility] Last Admin: 09/07/24 10:04 Dose: 100 mls/hr Magnesium Hydroxide (Milk Of Magnesia 30 Ml Oral.Susp) 30 ml PO DAILY PRN PRN Reason: Constipation Melatonin (Melatonin 3 Mg Tablet) 6 mg PO BEDTIME PRN PRN Reason: Insomnia Ondansetron HCl (Ondansetron Hcl 4 Mg/2 Ml Vial) 4 mg IVPUSH Q8H PRN PRN Reason: Nausea and Vomiting Pravastatin Sodium (Pravastatin Sodium 40 Mg Tablet) 40 mg PO DAILY [facility] Last Admin: 09/07/24 09:02 Dose: 40 mg Sodium Chloride (0.9 % Sodium Chloride Flush 3 Ml Syringe) 3 ml IVFLUSH QSHIFT [facility] Last Admin: 09/07/24 08:47 Dose: Not Given Home Medications ?Medication ?Instructions ?Recorded ?Confirmed ?Last Taken ?Type Unobtainable 09/06/24 09/06/24 Unknown History Physical Exam 2 Vital Signs: Vital Signs: Last Vital Signs Temp 98.7 F 09/07/24 11:50 Pulse 99 09/07/24 11:50 Resp 20 09/07/24 11:50 BP 147/87 H 09/07/24 11:50 Pulse Ox 98 09/07/24 11:50 O2 Del Method Room Air 09/07/24 11:50 O2 Flow Rate 2 09/07/24 05:59 BMI result Body Mass Index 24.8 GENERAL APPEARANCE: in no acute distress, pleasant. NECK: no carotid bruit, no jugular venous distention. SKIN: no suspicious lesions, warm and dry. HEART: no murmurs, regular rate and rhythm. LUNGS: clear to auscultation bilaterally. ABDOMEN: soft, nontender. EXTREMITIES: no edema. PERIPHERAL PULSES: equal. NEUROLOGIC: No gross deficits, AAO X 3 Objective Labs and Meds 09/07/24 03:52 09/06/24 05:48 Lab results: Laboratory Results - last 24 hr 09/07/24 03:52 WBC 16.0 H RBC 5.48 Hgb 16.7 Hct 51.7 MCV 94.3 MCH 30.5 MCHC 32.3 RDW 14.1 Plt Count 312 MPV 10.5 Immature Gran % (Auto) 0.4 Neut % (Auto) 84.4 H Lymph % (Auto) 10.9 L [place] % (Auto) 3.0 Eos % (Auto) 0.7 Baso % (Auto) 0.6 Lymph # (Auto) 1.7 [place] # (Auto) 0.5 Eos # (Auto) 0.1 Baso # (Auto) 0.1 Abs Immat Gran (auto) 0.06 H Absolute Neuts (auto) 13.5 H Absolute Nucleated RBC 0.000 Nucleated RBC % (auto) 0.0 Assessment and Plan (1) Acute CVA (cerebrovascular accident): Status: Acute (2) Polysubstance use disorder: Status: Acute (3) Cardiac defibrillator in place: Status: Acute Plan [age] year gentleman with polysubstance abuse, nonischemic cardiomyopathy based on echocardiography from 11/25/2023 with EF 30-40%, previous cardiac arrest in 07/25/2023 when he was resuscitated and eventually had cardiac catheterization showing no coronary disease and had a primary prevention ICD placed, multiple shocks from ICD before for atrial fibrillation status post ablation in 03/25/2024. He is presenting with acute CVA and is positive for multiple drugs unfortunately. Sinus rhythm currently. History is very limited from him but I reviewed his chart in detail at [facility]. We will do device interrogation to see if he has any episodes of atrial fibrillation. If he in fact has atrial fibrillation episodes then would favor starting him on anticoagulation at this stage. On the other hand if he does not have any episodes of atrial fibrillation recorded on the device then he should be started at least on antiplatelet therapy. Unfortunately he is quite noncompliant and it was likely will not take any of these medications. No further cardiovascular testing quite inpatient. Based on documentation at [facility] he was supposed to be on carvedilol 12.5 mg twice a day, clonidine 0.1 mg daily, Lasix 20 mg daily and levothyroxine 75 mcg daily Thank you for allowing me to participate in the care of your patient. Please feel free to contact me if you have any questions. Procedures Date of Service Date of Service: 09/07/24
[2024-09-07] MEDS: Buprenorphine/Naloxone 4/1 mg FILM 1 FILM SUBLINGUAL (18:41)
[2024-09-07] MEDS: Apixaban 5 MG TABLET PO (19:58)
[2024-09-08] VITALS (7 sets, daily range): BP systolic 104–131; BP diastolic 59–76; PULSE 77–97; RESP 16–20; TEMP 36.4–37.1; O2SAT 92–100
[2024-09-08] MEDS: Lactated Ringers 1,000 ML 100 ML IVCONT ×2 (03:50→12:20)
[2024-09-08] MEDS: Acetaminophen 325 MG TABLET 650 MG PO (03:51)
[2024-09-08 06:37] LABS: MANUAL DIFF FLAG NO
[2024-09-08 06:51] LABS: Basophils Percent Auto 0.3 % (0-2); Eosinophils Percent Auto 7.5 % (0-4); Hematocrit 40.9 % (42.0-52.0); Hemoglobin 13.4 g/dl (14.0-18.0); Imm Gran Abs Auto 0.04 X10*3/uL (0.00-0.03); Imm Gran Pct Auto 0.3 % (0.0-0.4); Lymphocytes Absolute Auto 1.8 X10*3/uL (1.2-4.9); Mean Corpuscular HGB Conc 32.8 g/dl (31.0-36.0); Mean Corpuscular Hemoglobin 30.9 pg (27.0-33.0); Mean Corpuscular Volume 94.2 fL (80.0-98.0); Monocytes Absolute Auto 0.7 X10*3/uL (0.1-1.2); Neutrophils Absolute Auto 9.5 x10*3/uL (2.0-8.3); Neutrophils Percent Auto 72.9 % (45-73); Platelet Count 274 X10*3/uL (160-400); Red Blood Count 4.34 X10*6/uL (4.60-5.80); Red Cell Distribution Width 14.1 % (11.0-16.0)
[2024-09-08 06:59] LABS: Anion Gap 10 (12-20); Blood Urea Nitrogen 20 mg/dL (9-16); Calcium 8.6 mg/dL (8.4-10.2); Carbon Dioxide 27 mmol/L (22-29); Chloride 108 mmol/L (96-108); Creatinine Clr Calc Pharmacy 96.1; Estimated Glomerular Filt Rate > 60; Glucose Random 145 mg/dL (60-115); Potassium 3.9 mmol/L (3.3-5.1); Sodium 141 mmol/L (135-145)
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
[2024-09-08] MEDS: Buprenorphine/Naloxone 8/2 mg FILM 1 FILM SUBLINGUAL ×2 (09:18→16:02)
[2024-09-08] MEDS: Apixaban 5 MG TABLET PO (09:19)
[2024-09-08] MEDS: Pravastatin Sodium 40 MG TABLET PO (09:19)
[2024-09-08] MEDS: Aspirin Enteric Coated 81 MG TABLET.DR PO (09:19)
[2024-09-08] MEDS: 0.9 % Sodium Chloride Flush 3 ML SYRINGE IVFLUSH ×3 (09:19→23:04)
--- NOTE | 2024-09-08 10:19 | PC.NURSE ---
0900--patient apparently was trying to remove rodriguez, bleeding from urethra, Rodriguez cath removed by this nurse, hematuria present post removal, MD is aware
--- NOTE | 2024-09-08 10:24 | MHC.RECOVRN ---
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 Pt reports feeling good, initiation went well. Pt denies withdrawal symptoms. Discussed continuation of MOUD, pt would like to be connected to the [facility]. Pt provided with resources. Denies questions or concerns at this time. Original Note: Pt has [facility] intake appt on 09/17/24 at 10:30AM.
--- NOTE | 2024-09-08 10:30 | HO.SUDE ---
Please see note by Christina Robles APRN, dated 09/07/24.
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
--- NOTE | 2024-09-08 15:43 | MHC.CM.PN ---
Per rounds and EMR review, pt has not been medically cleared for DC, he requires ongoing treatment for CVA and OD. PT rec. STR, referrals out, none accepting.
[2024-09-09] VITALS: BP 135/77; PULSE 74; RESP 16; TEMP 36.3; O2SAT 100
[2024-09-09 03:48] VITALS: BP 138/86; PULSE 85; RESP 16; TEMP 36.4; O2SAT 97
[2024-09-09 07:53] LABS: MANUAL DIFF FLAG NO
[2024-09-09 08:00] VITALS: BP 113/81; PULSE 95; RESP 18; TEMP 36.4; O2SAT 97
[2024-09-09 08:10] LABS: Anion Gap 9 (12-20); Blood Urea Nitrogen 15 mg/dL (9-16); Calcium 8.4 mg/dL (8.4-10.2); Carbon Dioxide 26 mmol/L (22-29); Chloride 110 mmol/L (96-108); Creatinine Clr Calc Pharmacy 103.7; Estimated Glomerular Filt Rate > 60; Glucose Random 105 mg/dL (60-115); Potassium 3.9 mmol/L (3.3-5.1); Sodium 141 mmol/L (135-145)
[2024-09-09] MEDS: Pravastatin Sodium 40 MG TABLET PO (08:12)
[2024-09-09] MEDS: 0.9 % Sodium Chloride Flush 3 ML SYRINGE IVFLUSH (08:12)
[2024-09-09] MEDS: Buprenorphine/Naloxone 8/2 mg FILM 1 FILM SUBLINGUAL (08:12)
[2024-09-09 08:16] LABS: Basophils Percent Auto 0.4 % (0-2); Eosinophils Absolute Auto 1.1 X10*3/uL (0.0-0.4); Eosinophils Percent Auto 11.4 % (0-4); Hematocrit 39.4 % (42.0-52.0); Hemoglobin 12.7 g/dl (14.0-18.0); Imm Gran Abs Auto 0.03 X10*3/uL (0.00-0.03); Imm Gran Pct Auto 0.3 % (0.0-0.4); Lymphocytes Absolute Auto 1.8 X10*3/uL (1.2-4.9); Lymphocytes Percent Auto 18.5 % (20-40); Mean Corpuscular HGB Conc 32.2 g/dl (31.0-36.0); Mean Corpuscular Hemoglobin 30.6 pg (27.0-33.0); Mean Corpuscular Volume 94.9 fL (80.0-98.0); Monocytes Absolute Auto 0.6 X10*3/uL (0.1-1.2); Monocytes Percent Auto 5.8 % (2-11); Neutrophils Absolute Auto 6.3 x10*3/uL (2.0-8.3); Neutrophils Percent Auto 63.6 % (45-73); Platelet Count 236 X10*3/uL (160-400); Red Blood Count 4.15 X10*6/uL (4.60-5.80); Red Cell Distribution Width 14.1 % (11.0-16.0); White Blood Count 9.9 X10*3/uL (4.8-10.8)
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
[2024-09-09 09:50] LABS: Hematocrit 39.5 % (42.0-52.0); Hemoglobin 12.7 g/dl (14.0-18.0); Mean Corpuscular HGB Conc 32.2 g/dl (31.0-36.0); Mean Corpuscular Hemoglobin 30.5 pg (27.0-33.0); Mean Platelet Volume 9.7 fL (9.4-12.4); Platelet Count 242 X10*3/uL (160-400); Red Blood Count 4.16 X10*6/uL (4.60-5.80); Red Cell Distribution Width 14.1 % (11.0-16.0); White Blood Count 10.3 X10*3/uL (4.8-10.8)
[2024-09-09 10:02] LABS: Anion Gap 9 (12-20); Blood Urea Nitrogen 13 mg/dL (9-16); Carbon Dioxide 26 mmol/L (22-29); Chloride 109 mmol/L (96-108); Estimated Glomerular Filt Rate > 60; Glucose Random 93 mg/dL (60-115); Potassium 4.1 mmol/L (3.3-5.1); Sodium 140 mmol/L (135-145)
[2024-09-09] MEDS: Aspirin Enteric Coated 81 MG TABLET.DR PO (10:49)
[2024-09-09 11:13] VITALS: BP 108/68; PULSE 85; RESP 18; TEMP 36.5; O2SAT 97
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
[2024-09-09] MEDS: Naloxone HCl Nasal TAKE HOME 4 MG SPRAY 8 MG NOSTRILALT (12:08)
--- NOTE | 2024-09-09 12:08 | PC.NURSE ---
patient given 8mg (2x4mg) to take home instructed on use
--- NOTE | 2024-09-09 12:41 | MHC.CM.PN ---
Pt has been medically cleared for DC, he will go home via private transport (his ), plan is self care.
== END 2024-09-09 15:07 | disposition home or self-care (01) | DRG 812 ==
LOC: HO.ED 09:33 → HO.EDOVER 10:41 → HO.IMC 09-07 13:42
PROVIDERS: Emergency Medicine; Admitting Provider Physician Assistant; Emergency Provider Emergency Medicine; Visit Provider Internal Medicine
DX: T50.901A Poisoning by unspecified drugs, medicaments and biological substances, accidental (unintentional), initial encounter (principal); I63.9 Cerebral infarction, unspecified; I49.01 Ventricular fibrillation; G92.8 Other toxic encephalopathy; I42.9 Cardiomyopathy, unspecified; F17.210 Nicotine dependence, cigarettes, uncomplicated; F19.10 Other psychoactive substance abuse, uncomplicated; I48.0 Paroxysmal atrial fibrillation; R29.707 NIHSS score 7; I10 Essential (primary) hypertension; T45.516A Underdosing of anticoagulants, initial encounter; T46.2X6A Underdosing of other antidysrhythmic drugs, initial encounter; F14.10 Cocaine abuse, uncomplicated; F11.10 Opioid abuse, uncomplicated; Z45.02 Encounter for adjustment and management of automatic implantable cardiac defibrillator; Z20.822 Contact with and (suspected) exposure to COVID-19; R31.0 Gross hematuria; Z59.02 Unsheltered homelessness; Z71.6 Tobacco abuse counseling; Z79.01 Long term (current) use of anticoagulants; Z79.899 Other long term (current) drug therapy
CPT/HCPCS: 36415; 70450; 70496; 70498; 71045; 80048; 80061; 80076; 80307; 81003; 82803; 83605; 83735; 84443; 84484; 85025; 85027; 87502; 87635; 93005; 97116; 97162; 97166; 97530; 99285; C1758; J1650; J7120; Q9967

== ENCOUNTER → 2024-09-06 05:39 | Outpatient (BNV) | payer OTHER, SELFPAY | PROVIDERS: Admitting Provider Physician Assistant; Emergency Provider Emergency Medicine; Visit Provider Internal Medicine Cardiovascular Disease | DX: R94.31 Abnormal electrocardiogram [ECG] [EKG] (principal) | CPT/HCPCS: 93010 ==

== ENCOUNTER → 2024-09-06 10:32 | Outpatient (BNV) | payer OTHER, SELFPAY | PROVIDERS: Admitting Provider Physician Assistant; Emergency Provider Emergency Medicine; Visit Provider Internal Medicine Cardiovascular Disease | DX: I63.9 Cerebral infarction, unspecified (principal); F19.90 Other psychoactive substance use, unspecified, uncomplicated; I42.8 Other cardiomyopathies | CPT/HCPCS: 99223; 99233 ==

== ENCOUNTER → 2024-09-06 10:32 | Outpatient (BNV) | payer OTHER, SELFPAY | PROVIDERS: Admitting Provider Physician Assistant; Emergency Provider Emergency Medicine; Visit Provider Nurse Practitioner Psychiatric/Mental Health | DX: F11.90 Opioid use, unspecified, uncomplicated (principal) | CPT/HCPCS: 99223; 99232 ==

== ENCOUNTER → 2024-09-06 10:32 | Outpatient (BNV) | payer OTHER, SELFPAY | PROVIDERS: Admitting Provider Physician Assistant; Emergency Provider Emergency Medicine; Visit Provider Physician Assistant | DX: I48.0 Paroxysmal atrial fibrillation (principal); F19.90 Other psychoactive substance use, unspecified, uncomplicated; I63.9 Cerebral infarction, unspecified | CPT/HCPCS: 99223; 99232 ==

== ENCOUNTER → 2024-09-06 10:32 | Outpatient (BNV) | payer OTHER, SELFPAY | PROVIDERS: Admitting Provider Physician Assistant; Emergency Provider Emergency Medicine; Visit Provider Psychiatry & Neurology Neurology | DX: G92.8 Other toxic encephalopathy (principal) | CPT/HCPCS: 99222 ==

== ENCOUNTER 2025-05-24 02:45 | Inpatient (IN) | payer MEDICAID, SELFPAY ==
[2025-05-24] VITALS (11 sets, daily range): BP systolic 107–133; BP diastolic 68–103; PULSE 74–115; RESP 14–20; TEMP 36.7–36.8; O2SAT 94–99; BMI 28.8
--- NOTE | 2025-05-24 | ECG_ITS ---
Test Reason : sob Blood Pressure : */* mmHG Vent. Rate : 97 BPM Atrial Rate : 97 BPM P-R Int : 144 ms QRS Dur : 98 ms QT Int : 394 ms P-R-T Axes : 56 0 169 degrees QTcB Int : 500 ms Sinus rhythm with occasional Premature ventricular complexes Possible Left atrial enlargement Possible Anterior infarct , age undetermined T wave abnormality, consider lateral ischemia Prolonged QT Abnormal ECG When compared with ECG of 07-Sep-2024 09:17, Premature ventricular complexes are now Present T wave inversion less evident in Lateral leads Referred By: Generic ED Physician Electronically Signed By: GAIL BANERJEE MD
--- NOTE | 2025-05-24 | ECG_ITS ---
Test Reason : CHEST PAIN Blood Pressure : */* mmHG Vent. Rate : 95 BPM Atrial Rate : 95 BPM P-R Int : 144 ms QRS Dur : 98 ms QT Int : 370 ms P-R-T Axes : 55 75 262 degrees QTcB Int : 464 ms Normal sinus rhythm Left atrial enlargement T wave abnormality, consider inferolateral ischemia Prolonged QT Abnormal ECG When compared with ECG of 24-May-2025 03:24, Premature ventricular complexes are no longer Present Questionable change in QRS axis Referred By: Yomi Vail Electronically Signed By: GAIL BANERJEE MD
--- NOTE | ~2025-05-24 | US_ITS ---
EXAMINATION: US LOWER EXTREMITY VEINS BILATERAL HISTORY: lower extremity edema, +Homans sign COMPARISON: There are no prior studies available for comparison. TECHNIQUE: Duplex and color Doppler sonographic examination of the deep venous system of the bilateral lower extremities was performed. FINDINGS: There is bilateral calf edema. The right common femoral, superficial femoral, and popliteal veins are patent demonstrating normal compressibility, spontaneous flow, and augmentation. There is a normal color and spectral Doppler waveform appearance of the visualized deep venous system above the knee. The posterior tibial and peroneal veins are patent. There is a fluid collection at the medial aspect of the right knee. The left common femoral, superficial femoral, and popliteal veins are patent demonstrating normal compressibility, spontaneous flow, and augmentation. There is a normal color and spectral Doppler waveform appearance of the visualized deep venous system above the knee. The posterior tibial and peroneal veins are patent. US/US venous duplex LE BI IMPRESSION: No evidence of acute DVT in the bilateral lower extremities. Electronically signed by: Jeffry Covington MD 05/24/2025 08:36 AM EDT
--- NOTE | ~2025-05-24 | XR_ITS ---
CLINICAL HISTORY: sob 2 view chest x-ray Comparison: CR/MA/SR - XR CHEST 2 VIEWS - 10/15/23 14:27 EST Findings: Bilateral perihilar infiltrates or edema and layering left-sided effusion. Enlarged cardiac silhouette. No acute fracture. Left anterior chest wall pacemaker IMPRESSION: Bilateral perihilar infiltrates or edema and layering left-sided effusion. This document has been electronically signed by: Michi Diaz MD, PHD on 05/24/2025 05:06:32
[2025-05-24 03:37] LABS: Hematocrit 36.3 % (42.0-52.0); Hemoglobin 11.9 g/dl (14.0-18.0); Imm Gran Abs Auto 0.02 X10*3/uL (0.00-0.03); Imm Gran Pct Auto 0.2 % (0.0-0.4); Lymphocytes Absolute Auto 1.9 X10*3/uL (1.2-4.9); MANUAL DIFF FLAG NO; Mean Corpuscular HGB Conc 32.8 g/dl (31.0-36.0); Mean Corpuscular Hemoglobin 31.3 pg (27.0-33.0); Mean Corpuscular Volume 95.5 fL (80.0-98.0); NRBC Abs Auto 0.000 X10*3/uL (0.0-0.012); NRBC Pct Auto 0.0 /100WBC (0.0-0.2); Platelet Count 262 X10*3/uL (160-400); Red Blood Count 3.80 X10*6/uL (4.60-5.80); White Blood Count 10.0 X10*3/uL (4.8-10.8)
[2025-05-24 03:55] LABS: Alanine Aminotransferase 53 U/L (0-40); Albumin Level 2.8 g/dL (3.5-5.0); Alkaline Phosphatase 89 U/L (39-117); Anion Gap 10 (12-20); Aspartate Amino Transferase 35 U/L (5-37); Blood Urea Nitrogen 18 mg/dL (9-16); Calcium 8.0 mg/dL (8.4-10.2); Carbon Dioxide 22 mmol/L (22-29); Chloride 111 mmol/L (96-108); Creatinine Clr Calc Pharmacy 97.0; Estimated Glomerular Filt Rate > 60; Potassium 4.1 mmol/L (3.3-5.1); Sodium 139 mmol/L (135-145); Total Protein 5.2 g/dL (6.5-8.0)
[2025-05-24 04:02] LABS: Troponin-I High Sensitivity 33.5 ng/L (<3.5-35.0)
--- NOTE | 2025-05-24 05:55 | PC.NURSE ---
PT awake and alert, skin warm and dry and without distress at baseline. Pt with obvious edema to his bilateral lower extremities; that he reports as being painful - R>L. The pt reports that he is currently without insurance coverage and therefor has been without his medications and/or cards/pcp follow up in some time. The pt has an albuterol inhaler present with him, he was advised to refrain from using his own medications while here. He is sinus tach on the monitor, was observed to independently ambulate to and from nearby bathroom despite RN's encouragement to utilize a urinal. He made it to and from the bathroom without issue/complications.
--- NOTE | 2025-05-24 06:15 | ED_ITS ---
HPI - SOB/Dyspnea General Chief Complaint: Dyspnea Stated Complaint: Bilateral leg swelling , pitting edema , hx chf Time Seen by Provider: 05/24/25 06:15 Source: patient, EMS and translator interpreter Mode of arrival: EMS Limitations: language barrier History of Present Illness ED Provider: Dr. Renée Couch HPI Narrative: 50-year-old male with extensive past medical history including CHF, atrial fibrillation on Eliquis, polysubstance use disorder, COPD presenting with shortness of breath, bilateral lower extremity edema ongoing for the last several days. Reports worsening shortness of breath with the exertion over the last 2 days. Admits that his legs are swelling to the point where he is unable to walk. Right leg is more swollen than the left. No reported injury. Does not have a history of blood clots. Denies fever, sputum production. He does have a chronic cough that is unchanged. Admits to using an inhaler that he ?bought at the pharmacy without a prescription? but it has not helped his work of breathing. No known sick contacts or travel. Related Data Previous Rx's ?Medication ?Instructions ?Recorded apixaban 5 mg tablet (Eliquis) 5 mg PO BID #180 tabs 1 11/10/23 aspirin 81 mg tablet,delayed 81 mg PO DAILY #90 tabs 1 11/10/23 release atorvastatin 40 mg tablet (Lipitor) 40 mg PO BEDTIME # 90 tabs 09/09/24 buprenorphine 8 mg-naloxone 2 mg 1 film buccal BID #14 ea 09/09/24 sublingual film (Suboxone) Allergies Allergy/AdvReac Type Severity Reaction Status Date / Time No Known Allergies Allergy Verified 05/24/25 03:09 Review of Systems 2 Review of Systems: As per HPI, full review of systems performed and negative but for the above mentioned pertinent positives and negatives. [facility] Past Medical History Medical History Paroxysmal A-fib Cardiomyopathy Atrial flutter Defibrillator discharge ICD (implantable cardioverter-defibrillator) malfunction Arrhythmia Systolic heart failure Cardiac defibrillator in place Ventricular fibrillation Polysubstance use disorder Social History Social History Household Members: None Housing: Other Housing Other:: homeless Do you presently have visiting nurse or other home services: No Unable to assess alcohol history related to: Refusing to respond Alcohol intake: never Patient Tobacco Use Status: Current everyday Tobacco user Tobacco use type: Cigarette Cigarette Packs Per Day: 1 Cigarettes Per Day: 20.0 Smoked in Last 30 Days: No e-Cigarette/Vaping Use: Currently Using Second Hand Smoke Exposure: No Use of substances other than those prescribed or required for medical reasons: No Substance Use Type: Crack/Cocaine and Heroin Advance Directives: Yes Advance Directives on File: Yes Advance Directives Date on File: 12/26/23 service: No Physical Exam 2 Exam: Exam: GENERAL: Chronically ill-appearing, moderate respiratory distress. SKIN: Normal skin color for ethnicity, warm, dry, no rashes noted. HEENT: Normocephalic, atraumatic, no stridor, EOMI. NECK: Soft, supple, full ROM, midline structures nontender, no step-offs, no deformities, no lymphadenopathy. CHEST: Heart regular tachycardia, symmetric chest rise and fall. PULMONARY: Coarse lung sounds bilaterally, diminished at the bases, moderate respiratory distress with poor air movement, no wheezes. ABDOMINAL: Soft, protuberant nontender, quiet bowel sounds in all quadrants. : Deferred. MUSCULOSKELETAL: Normal tone, full range of motion, no deformities, 3+ peripheral edema bilaterally R>L. NEURO: Alert and oriented to person, CN II through XII intact, no focal neurologic deficits. PSYCHIATRIC: Anxious affect, appropriate demeanor. Vital Signs: Vital Signs: Last Vital Signs Temp 98.0 F 05/24/25 05:41 Pulse 74 05/24/25 05:41 Resp 18 05/24/25 05:41 BP 122/72 05/24/25 05:41 Pulse Ox 96 05/24/25 05:41 O2 Del Method Room Air 05/24/25 05:41 BMI result Body Mass Index 28.8 Medical Decision Making Medical Decision Making MDM Narrative: Patient presents today with chief complaint of shortness of breath. Differential diagnosis includes, but is not limited to, upper respiratory infection, pneumonia, COPD exacerbation, asthma exacerbation, CHF, pneumothorax, pleural effusion, pulmonary embolism, ACS. Broad-based work-up will be initiated to evaluate for etiology of patient's symptoms. Leg swelling consistent with his level of pulmonary edema and CHF exacerbation however, the right is far more swollen than the left and he is significantly tender. We will add on a venous duplex bilaterally. Lasix ordered IV. I have added on cultures, lactic acid level, doxycycline and Rocephin as his chest x- ray is showing some layering effusions on the left, potential for infectious process. That being said, he has no fever, no sputum production to suggest significant pneumonia. He is feeling improved after nitro paste. Plan for admission to hospitalist for further care and evaluation. Patient understands and agrees with plan for admission. Admitted in guarded condition. Differential Diagnosis Differential Diagnoses: The differential diagnosis associated with the presentation includes (As above) Admission/Observation Consideration of admission/observation: Escalation of care including admission/observation considered Consult Healthcare Provider Management of the patient was discussed with: Hospitalist Lab Data MDM Lab Attestation statement: I reviewed the patient's lab results. 05/24/25 03:32 05/24/25 03:32 Labs: Lab Results 05/24/25 Range/Units 03:32 WBC 10.0 (4.8-10.8) X10*3/uL RBC 3.80 L (4.60-5.80) X10*6/uL Hgb 11.9 L (14.0-18.0) g/dl Hct 36.3 L (42.0-52.0) % MCV 95.5 (80.0-98.0) fL MCH 31.3 (27.0-33.0) pg MCHC 32.8 (31.0-36.0) g/dl RDW 15.3 (11.0-16.0) % Plt Count 262 (160-400) X10*3/uL MPV 10.2 (9.4-12.4) fL Immature Gran % (Auto) 0.2 (0.0-0.4) % Neut % (Auto) 67.5 (45-73) % Lymph % (Auto) 18.5 L (20-40) % Saunders % (Auto) 7.4 (2-11) % Eos % (Auto) 5.8 H (0-4) % Baso % (Auto) 0.6 (0-2) % Lymph # (Auto) 1.9 (1.2-4.9) X10*3/uL Saunders # (Auto) 0.7 (0.1-1.2) X10*3/uL Eos # (Auto) 0.6 H (0.0-0.4) X10*3/uL Baso # (Auto) 0.1 (0.0-0.2) X10*3/uL Abs Immat Gran (auto) 0.02 (0.00-0.03) X10*3/uL Absolute Neuts (auto) 6.8 (2.0-8.3) x10*3/uL Absolute Nucleated RBC 0.000 (0.0-0.012) X10*3/uL Nucleated RBC % (auto) 0.0 (0.0-0.2) /100WBC Sodium 139 (135-145) mmol/L Potassium 4.1 (3.3-5.1) mmol/L Chloride 111 H (96-108) mmol/L Carbon Dioxide 22 (22-29) mmol/L Anion Gap 10 L (12-20) BUN 18 H (9-16) mg/dL Creatinine 0.98 (0.5-1.4) mg/dL Estim Creat Clear Calc 97.0 Estimated GFR > 60 Random Glucose 127 H (60-115) mg/dL Calcium 8.0 L (8.4-10.2) mg/dL Total Bilirubin 0.3 (0.0-1.0) mg/dL AST 35 (5-37) U/L ALT 53 H (0-40) U/L Alkaline Phosphatase 89 (39-117) U/L Troponin I High Sens 33.5 D (<3.5-35.0) ng/L Total Protein 5.2 L (6.5-8.0) g/dL Albumin 2.8 L (3.5-5.0) g/dL Independent Interpretation I performed an independent interpretation of an: EKG Interpretation: * My independent interpretation of the ECG reveals normal sinus tachycardia with rate of 97, leftward axis, QTC 500, no ST elevations or depressions to suggest ischemic changes, T-wave inversions laterally, relatively unchanged from previous on 09/07/2024. Radiology Impression Discussion of test interpretation with radiology: I have reviewed the radiologist's reading. Radiologist Impression: 2 view chest x-ray Comparison: CR/WA/SR - XR CHEST 2 VIEWS - 10/15/23 14:27 EST Findings: Bilateral perihilar infiltrates or edema and layering left-sided effusion. Enlarged cardiac silhouette. No acute fracture. Left anterior chest wall pacemaker IMPRESSION: Bilateral perihilar infiltrates or edema and layering left-sided effusion. This document has been electronically signed by: Michi Diaz MD, PHD on 05/24/2025 05:06:32 Independent Historian Clinical information obtained from an independent historian. History obtained from or confirmed by: EMS External Record Review External record reviewed: Inpatient record Social Determinants Patient?s care significantly limited by Social Determinants of Health including: Alcoholism and drug addiction in family and Problems related to primary support group Discharge Plan Discharge Clinical Impression: Acute exacerbation of CHF (congestive heart failure), Pulmonary edema, Bilateral edema of lower extremity Patient Disposition: Admitted As Inpatient Print Language: Korean
[2025-05-24] MEDS: Albuterol Sulfate 2.5 MG, Albuterol/Iprat 2.5/0.5MG 3 ML 3 ML INHALE (06:35)
[2025-05-24] MEDS: Nitroglycerin 2 % Oint 1 GM Packet 1 INCH TRANSDERMA (06:39)
[2025-05-24] MEDS: Furosemide 40 MG/4 ML VIAL IVPUSH ×2 (07:51→18:10)
--- NOTE | 2025-05-24 08:19 | PC.NURSE ---
Care of Pt assumed at change of shift. Pt in need if IV Lasix, blood cultures, and lactic. Pt is a difficult stick, this RN was unsuccessful in IV placement. RN Lilliana able to place a 20 to Pts R hand. Several minutes after IV Doxy started, helpdesk technician alerts this RN that IV has been removed. Pt reports IV became dislodged while using the urinal. IV infusion stopped at this time. Will have new IV access placed, Pt currently receiving bedside u/s imaging.
[2025-05-24 08:29] LABS: Troponin-I High Sensitivity 27.6 ng/L (<3.5-35.0)
--- NOTE | 2025-05-24 10:20 | P.HPHOSP_ITS ---
History of Present Illness Date of Service: 05/24/25 Chief Complaint: sob, edema 50M PMH substance dependence, paroxysmal AFib, COPD, VFib/cardiac arrest status post AICD, chronic diastolic CHF presented with shortness of breath and lower extremity edema. Patient states symptoms began over the last few days, worsening lower extremity edema, orthopnea, midsternal chest pain. Denies fever or chills. Reports he has been noncompliant with medications for about 2 months. Denies current IV drug use reports smoking crack cocaine. In ED chest x-ray with perihilar infiltrates versus edema. EKG with sinus tachycardia and PVCs. Review of Systems 2 Review of Systems: Yes all other systems are reviewed and are negative [facility] Medical History Paroxysmal A-fib Cardiomyopathy Atrial flutter Defibrillator discharge ICD (implantable cardioverter-defibrillator) malfunction Arrhythmia Systolic heart failure Cardiac defibrillator in place Ventricular fibrillation Polysubstance use disorder Social History Household Members: None Housing: Other Housing Other:: homeless Do you presently have visiting nurse or other home services: No Unable to assess alcohol history related to: Refusing to respond Alcohol intake: never Patient Tobacco Use Status: Current everyday Tobacco user Tobacco use type: Cigarette Cigarette Packs Per Day: 1 Cigarettes Per Day: 20.0 Smoked in Last 30 Days: No e-Cigarette/Vaping Use: Currently Using Second Hand Smoke Exposure: No Use of substances other than those prescribed or required for medical reasons: No Substance Use Type: Crack/Cocaine and Heroin Advance Directives: Yes Advance Directives on File: Yes Advance Directives Date on File: 12/26/23 service: No Meds Allergies Allergy/AdvReac Type Severity Reaction Status Date / Time No Known Allergies Allergy Verified 05/24/25 03:09 Active Medications: Current Medications Acetaminophen (Acetaminophen 325 Mg Tablet) 650 mg PO Q6H PRN PRN Reason: Pain, Mild 1-3,fever,headache Calcium Carbonate (Calcium Carbonate 750 Mg Tab.Chew) 750 mg PO Q4H PRN PRN Reason: Heartburn Furosemide (Furosemide 40 Mg/4 Ml Vial) 40 mg IVPUSH BID@0900,1800 EDMUND; Protocol Last Admin: 05/24/25 09:05 Dose: Not Given Magnesium Hydroxide (Milk Of Magnesia 30 Ml Oral.Susp) 30 ml PO DAILY PRN PRN Reason: Constipation Melatonin (Melatonin 3 Mg Tablet) 6 mg PO BEDTIME PRN PRN Reason: Insomnia Sodium Chloride (0.9 % Sodium Chloride Flush 3 Ml Syringe) 3 ml IVFLUSH QSHIFT EDMUND Physical Exam 2 Vital Signs and Narrative: Vital Signs: Last Vital Signs Temp 98.0 F 05/24/25 05:41 Pulse 108 H 05/24/25 06:39 Resp 20 05/24/25 06:36 BP 133/99 H 05/24/25 07:51 Pulse Ox 96 05/24/25 05:41 O2 Del Method Room Air 05/24/25 05:41 BMI result Body Mass Index 28.8 General: AO X 3, no acute distress Resp: Crackles bilateral, no accessory muscles used CVS: S1,S2,RRR, 4+ edema bilateral GI: soft, non tender, non distended Neuro: motor grossly intact, alert Psych: appropriate affect, appropriate insight Results Labs 05/24/25 03:32 05/24/25 03:32 Labs: Laboratory Results - last 24 hr 05/24/25 05/24/25 03:32 07:48 MCV 95.5 MCH 31.3 MCHC 32.8 RDW 15.3 Plt Count 262 MPV 10.2 Immature Gran % (Auto) 0.2 Neut % (Auto) 67.5 Lymph % (Auto) 18.5 L Grant % (Auto) 7.4 Eos % (Auto) 5.8 H Baso % (Auto) 0.6 Lymph # (Auto) 1.9 Grant # (Auto) 0.7 Eos # (Auto) 0.6 H Baso # (Auto) 0.1 Abs Immat Gran (auto) 0.02 Absolute Neuts (auto) 6.8 Absolute Nucleated RBC 0.000 Nucleated RBC % (auto) 0.0 Anion Gap 10 L Estim Creat Clear Calc 97.0 Estimated GFR > 60 Random Glucose 127 H Lactic Acid 1.6 Calcium 8.0 L Total Bilirubin 0.3 AST 35 ALT 53 H Alkaline Phosphatase 89 Total Protein 5.2 L Albumin 2.8 L Imaging Radiologist's Impressions: Impressions Venous Duplex 05/24/25 08:11 IMPRESSION: No evidence of acute DVT in the bilateral lower extremities. Electronically signed by: Jeffry Covington MD 05/24/2025 08:36 AM EDT RP Assessment and Plan (1) Polysubstance use disorder: Status: Acute Plan 50M PMH substance dependence, paroxysmal AFib, COPD, VFib/cardiac arrest status post AICD, chronic diastolic CHF presented with shortness of breath and lower extremity edema Acute CHF unspecified IV Lasix, follow up echo, cardiology Polysubstance dependence Addiction eval History of VFib/cardiac arrest Status post AICD Paroxysmal AFib Restart apixaban DVT prophylaxis-apixaban Full Code Quality Stroke Does the patient have a stroke diagnosis?: No VTE Prior VTE?: No VTE Risk Level:: Medical - moderate - high VTE Device Contraindication: Treatment Not Indicated VTE Drug Contraindication: N/A - Med Ordered
[2025-05-24 12:26] LABS: B Type Natriuretic Peptide 2246 pg/mL (<100)
--- NOTE | 2025-05-24 14:29 | HO.ADDICTCON ---
History of Present Illness Date of Service: 05/24/2025 Chief Complaint: CHF Reason for Consult: TONEY Sources of Information: patient interviewed and chart reviewed HPI Narrative: Patient is a 50 year old Tristanian speaking male with medical history that includes, CHF, COPD, vfib s/p AICD, TONEY and AFIB [place] [facility]/o [place]B and lower extremity edema--admitted with acute CHF Consult requested due to ongoing substance use. Patient seen in room 15 of main ED. He is sleeping, but wakes easily to voice. Discussed substance use --he reports that he stopped opiate use almost one year ago. Last admission (09/2024) he was initiated on buprenorphine. Per [facility], it appears he was incarcerated and received 2 sublocade injections--last one in November 2024 Today he denies any opiate withdrawal sx He states he has been smoking crack cocaine only. Denies any other substance use, including alcohol Review of Systems Constitutional: Reports as per HPI, Reports fatigue and Reports weakness Gastrointestinal: Denies loose stools and Denies nausea Reports weakness Psychiatric: Denies anxiety Endocrine: Reports fatigue Diagnostics Vital Signs (24Hr): Vital Signs - 24 hr 05/24/25 03:08 05/24/25 05:41 05/24/25 06:21 Temperature 98.3 F 98.0 F Pulse Rate 96 74 115 H Respiratory Rate 18 18 Blood Pressure 122/74 122/72 132/103 H Pulse Oximetry 96 96 Oxygen Delivery Method Room Air Room Air 05/24/25 06:36 05/24/25 06:39 05/24/25 07:51 Temperature Pulse Rate 108 H 108 H Respiratory Rate 20 Blood Pressure 125/102 H 133/99 H Pulse Oximetry Oxygen Delivery Method 05/24/25 11:20 Temperature 98.3 F Pulse Rate 101 H Respiratory Rate 14 Blood Pressure 116/82 Pulse Oximetry 99 Oxygen Delivery Method Room Air BMI result Body Mass Index 28.8 Labs 05/24/25 03:32 05/24/25 03:32 Labs: Laboratory Results - last 48 hr 05/24/25 05/24/25 03:32 07:48 WBC 10.0 RBC 3.80 L Hgb 11.9 L Hct 36.3 L MCV 95.5 MCH 31.3 MCHC 32.8 RDW 15.3 Plt Count 262 MPV 10.2 Immature Gran % (Auto) 0.2 Neut % (Auto) 67.5 Lymph % (Auto) 18.5 L Cr[place]enden % (Auto) 7.4 Eos % (Auto) 5.8 H Baso % (Auto) 0.6 Lymph # (Auto) 1.9 [place] # (Auto) 0.7 Eos # (Auto) 0.6 H Baso # (Auto) 0.1 Abs Immat Gran (auto) 0.02 Absolute Neuts (auto) 6.8 Absolute Nucleated RBC 0.000 Nucleated RBC % (auto) 0.0 Sodium 139 Potassium 4.1 Chloride 111 H Carbon Dioxide 22 Anion Gap 10 L BUN 18 H Creatinine 0.98 Estim Creat Clear Calc 97.0 Estimated GFR > 60 Random Glucose 127 H Lactic Acid 1.6 Calcium 8.0 L Total Bilirubin 0.3 AST 35 ALT 53 H Alkaline Phosphatase 89 Troponin I High Sens 33.5 D 27.6 B-Natriuretic Peptide 2246 H Total Protein 5.2 L Albumin 2.8 L Imaging Radiology Impressions: ITS Impressions Venous Duplex 05/24/25 08:11 IMPRESSION: No evidence of acute DVT in the bilateral lower extremities. Electronically signed by: Jeffry Covington MD 05/24/2025 08:36 AM EDT RP Mental Status Exam Mental Status Exam Patient Appearance: Appropriate Level of Consciousness: Awake and Appropriate Patient Behavior: Appropriate Affect Description: Blunted Speech Pattern: Clear Thought Process: Intact Thought Content: positive for Intact Judgement: Good Medications Medications Current Medications Acetaminophen (Acetaminophen 325 Mg Tablet) 650 mg PO Q6H PRN PRN Reason: Pain, Mild 1-3,fever,headache Apixaban (Apixaban 5 Mg Tablet) 5 mg PO BID [facility] Calcium Carbonate (Calcium Carbonate 750 Mg Tab.Chew) 750 mg PO Q4H PRN PRN Reason: Heartburn Furosemide (Furosemide 40 Mg/4 Ml Vial) 40 mg IVPUSH BID@0900,1800 [facility]; Protocol Last Admin: 05/24/25 09:05 Dose: Not Given Magnesium Hydroxide (Milk Of Magnesia 30 Ml Oral.Susp) 30 ml PO DAILY PRN PRN Reason: Constipation Melatonin (Melatonin 3 Mg Tablet) 6 mg PO BEDTIME PRN PRN Reason: Insomnia Sodium Chloride (0.9 % Sodium Chloride Flush 3 Ml Syringe) 3 ml IVFLUSH QSHIFT [facility] Allergies Allergies Allergy/AdvReac Type Severity Reaction Status Date / Time No Known Allergies Allergy Verified 05/24/25 03:09 Assessment & Plan Assessment & Plan (1) Cocaine use disorder: Status: Inactive Code(s): F14.10 - Cocaine abuse, uncomplicated Assessment and Plan: denies any withdrawal sx at this time. hydroxyzine or low dose lorazepam if needed for anxiety. UDS ordered , updated HIV and hepatitis screens compensation specialist to follow up in AM Total time managing care of this patient today _30___ minutes. [facility] Past Medical History Medical History Paroxysmal A-fib Cardiomyopathy Atrial flutter Defibrillator discharge ICD (implantable cardioverter-defibrillator) malfunction Arrhythmia Systolic heart failure Cardiac defibrillator in place Ventricular fibrillation Polysubstance use disorder Social History Social History Household Members: None Housing: Other Housing Other:: homeless Do you presently have visiting nurse or other home services: No Unable to assess alcohol history related to: Refusing to respond Alcohol intake: never Patient Tobacco Use Status: Current everyday Tobacco user Tobacco use type: Cigarette Cigarette Packs Per Day: 1 Cigarettes Per Day: 20.0 Smoked in Last 30 Days: No e-Cigarette/Vaping Use: Currently Using Second Hand Smoke Exposure: No Use of substances other than those prescribed or required for medical reasons: No Substance Use Type: Crack/Cocaine and Heroin Advance Directives: Yes Advance Directives on File: Yes Advance Directives Date on File: 12/26/23 service: No
--- NOTE | 2025-05-24 17:59 | PHA.MEDREC ---
Addendum entered by Niko Zaldivar, PharmD 05/24/25 18:25: MED REC CHECKED BY [facility] Original Note: Pharmacy Consult ? Medication Reconciliation Pharmacy has completed the medication reconciliation. Spoke with pt, utilizing seismic interpreter (Elsie) and he confirmed he is not taking any medications at this time.
[2025-05-24] MEDS: 0.9 % Sodium Chloride Flush 3 ML SYRINGE IVFLUSH (18:10)
--- NOTE | 2025-05-24 20:55 | PC.NURSE ---
pt noted to have a few runs of VTach on monitor. hospitalist made aware. print out placed in chart and sent to MD. pt was up to use urinal during episode
[2025-05-24] MEDS: Magnesium Sulfate/H2O 2 GM/50 ML PIGGYBACK IV (20:58)
[2025-05-24 21:58] LABS: Troponin-I High Sensitivity 42.0 ng/L (<3.5-35.0)
[2025-05-25] VITALS (7 sets, daily range): BP systolic 96–124; BP diastolic 67–91; PULSE 67–110; RESP 14–20; TEMP 36.5–37.1; O2SAT 86–100; BMI 25.4
--- NOTE | 2025-05-25 02:12 | PC.NURSE ---
Recieved report regarding a low oxygen saturation for patient, oxygen dropped to 85% while sleeping. Upon assessment, patient woke up and oxygen saturation returned to 99% without intervention. Patient requested food as he stated he was hungry. Provided sandwich and gingerale as diet order is a regular diet. Pt eating at bedside. Oxygen maintain without supplementary oxygen.
[2025-05-25 02:18] LABS: Cannabinoid Screen Urine Not Detected (Not Detect)
--- NOTE | 2025-05-25 02:30 | PC.NURSE ---
Patient given 2 ham sandwiches and two gingerales as he was complaining of hunger. Patient ate 100%.
[2025-05-25 04:55] LABS: Hematocrit 37.3 % (42.0-52.0); Hemoglobin 12.1 g/dl (14.0-18.0); Mean Corpuscular HGB Conc 32.4 g/dl (31.0-36.0); Mean Corpuscular Hemoglobin 30.9 pg (27.0-33.0); Mean Corpuscular Volume 95.4 fL (80.0-98.0); NRBC Abs Auto 0.000 X10*3/uL (0.0-0.012); NRBC Pct Auto 0.0 /100WBC (0.0-0.2); Platelet Count 265 X10*3/uL (160-400); Red Blood Count 3.91 X10*6/uL (4.60-5.80); White Blood Count 8.8 X10*3/uL (4.8-10.8)
--- NOTE | 2025-05-25 05:05 | PC.NURSE ---
Patient resting comfortably with 2 l of NC on during rest due to oxygen desat. Patients RR are even and unlabored. Telemonitor pt is SR with PVCs. Hr at 91. Patient has equal chest rise and fall, RR 15.
[2025-05-25 05:18] LABS: Anion Gap 11 (12-20); Blood Urea Nitrogen 14 mg/dL (9-16); Calcium 8.0 mg/dL (8.4-10.2); Carbon Dioxide 27 mmol/L (22-29); Chloride 109 mmol/L (96-108); Creatinine Clr Calc Pharmacy 101.1; Estimated Glomerular Filt Rate > 60; Magnesium 2.1 mg/dL (1.6-2.6); Potassium 3.5 mmol/L (3.3-5.1); Sodium 143 mmol/L (135-145)
--- NOTE | 2025-05-25 07:00 | CA_ITS ---
Transthoracic Echocardiogram Patient (Last, First, Middle): Laron Mcclain J Gender: Male Date of : 1975 Age: 50 Procedure Date: 05/25/2025 Procedure Type: Transthoracic Echocardiogram Location: ER Height: 175.26 cm Weight: 88. kg BSA: 2.04 m2 Heart Rate: bpm BP: 116 / 82 mmHg Reimbursement Counselor: Referring MD: Henry Vanegas MD Subway Train Driver: Wilfrid Benavides MD Symptoms: chf Study Quality: Adequate ECG Rhythm: Tachycardia Conclusions: - 1. Severely dilated left ventricle but severely reduced LV ejection fraction of 10-15% with grade 3 diastolic dysfunction 2. Moderately dilated right ventricle and right atrium 3. Severely dilated left atrium 4. Ihgx-sk-yvelbxiz mitral regurgitation with mild aortic regurgitation 5. Normal measured RV systolic pressure with mildly elevated right atrial pressures 6. No gross pericardial effusion Findings Left Ventricle Severely increased left ventricular cavity size. There is normal left ventricular wall thickness. The left ventricular systolic function is severely decreased. The visually estimated ejection fraction is between 10 15%. There is severe global hypokinesis. Spectral Doppler is indicative of a restrictive filling pattern. E/E prime ratio is >15, consistent with elevated filling pressures. Evidence suggests grade III (severe) diastolic dysfunction. Right Ventricle Moderately increased right ventricular cavity size. There is low normal right ventricular systolic function. There is an ICD wire seen in the right ventricle. Atria The left atrium is severely dilated. There is no evidence of interatrial shunt. The right atrium is moderately dilated. Aortic Valve There is mild calcification of the aortic valve. There is no aortic valve stenosis. There is mild aortic valve regurgitation. Mitral Valve There is mild anterior and posterior mitral leaflet thickening. There is mild to moderate mitral valve regurgitation. There is no mitral valve stenosis. Pulmonic Valve The pulmonic valve is likely normal. There is mild to moderate pulmonic valve regurgitation. Tricuspid Valve Normal tricuspid valve structure. There is mild tricuspid valve regurgitation. The right ventricular systolic pressure is normal. Mildly elevated right atrial pressure. There is no evidence of pulmonary hypertension. Great Vessels All visible segments of the aorta are normal in size. The pulmonary artery was not well visualized. Venous The inferior vena cava is moderately dilated and collapses greater than 50% with inspiration. Pericardium/Pleural There is no evidence of pericardial effusion. Prior Study Comparison Significant changes compared to prior study dated: 09/25/2023. LV significantly dilated with severely reduced LV ejection fraction with noted ysxr-gj-zrvvuelf mitral regurgitation mild aortic regurgitation Measurements 2D Linear Measurements IVSd: 1.11 0.6-0.9/0.6-1.0 cm LVIDd: 6.86 3.9-5.3/4.2-5.9 cm LVIDd Index: 3.36 2.4-3.2/2.2-3.1 cm/m2 LVIDs: 6.60 2.0-3.6 cm LVPWd: 1.10 0.7-1.1 cm Ao Root: 2.90 2.1-3.5 cm LA Diam: 5.00 2.7-3.8/3.0-4.0 cm LAIDs Index: 2.45 1.5-2.3 cm/m2 LV Mass: 440.25 67-162/88-224 g LV Mass Index: 215.81 43-95/49-115 g/m2 LVOT Diam: 2.50 3.0+(-)1.3 cm 2D Systolic Function EF 4C: 10.10 >55% EF 2C: 12.40 >55% EF BiP: 10.30 >55% Mitral Valve MV Pk E: 1.02 MV PK A: 0.61 MV Decel Time: 137.00 E/A: 1.70 E'Lateral: 4.13 E'Medial: 2.72 E/E' Med: 37.50 E/E' Lat: 24.70 PHT: 40.00 MVA PHT: 5.50 Decel Kimble: 7.46 Aortic Valve AoV Pk Ash: 0.79 AoV Mn Ash: 0.52 AoV VTI: 0.13 AoV Pk Grad: 2.00 Aov Mn Grad: 1.00 [place] Cont.VTI: 2.67 LVOT LVOT Pk Ash: 0.44 LVOT Mn Ash: 0.31 LVOT VTI: 0.07 LVOT Pk Grad: 1.00 LVOT Mn Grad: 0.00 LVOT Diam: 2.50 LVOT Area: 4.91 Diastolic Function MV Pk E: 1.02 MV Pk A: 0.61 E/A: 1.70 E'Medial: 2.72 E/E' Med: 37.50 E' Laterial: 4.13 E/E' Lat: 24.70 Right Ventricle TAPSE (mm): 17.00 TVS' Ash: 10.00 Tricuspid Valve TR Pk Ash: 2.46 TR Pk Grad: 24.00 RA Press: 8.00 RVSP: 32.00 Great Vessels Aorta Ao Root-2D: 2.90 2.0-3.7 cm Ao Asc: 3.20 2.1-3.4 cm Pulmonary Valve PV Pk Ash: 0.81 Peak PV Grad: 3.00 Updated in Other Vendor System with Status of Final Wilfrid Benavides MD electronically signed on 05/25/2025 12:34:02 PM with status of Final
--- NOTE | 2025-05-25 07:17 | PC.NURSE ---
resumed care of pt at 0700, he is currently sleeping, call fernandez within reach, pt has been using urinal throughout night per locker room attendant report. Awaiting bed assignment at this time. Breakfast at bedside, this RN allowing pt to sleep, not going to wake up at this time.
[2025-05-25] MEDS: Furosemide 40 MG/4 ML VIAL IVPUSH ×2 (08:18→18:34)
[2025-05-25] MEDS: 0.9 % Sodium Chloride Flush 3 ML SYRINGE IVFLUSH ×3 (08:19→20:48)
[2025-05-25 08:47] LABS: HIV Num 1 0.05 S/CO (0.00-0.99); ~HepC Num1 0.08 S/CO (0.00-0.79); ~Hepatitis C Antibody Nonreactive (Nonreactive)
--- NOTE | 2025-05-25 11:11 | PM.CNCAR ---
History of Present Illness History of Present Illness Date of Service: 05/25/25 Requesting physician: Henry Vanegas Consult reason: congestive heart failure Chief complaint: CHF Narrative: I was consulted to see Laron in cardiology consultation today for decompensated congestive heart failure. History was obtained with help of staff interpreter at bedside. Patient is 50-year-old male with prior history of congestive heart failure, ICD placement for VFib arrest, prior CVA, substance abuse disorder came to the hospital as he said he was out of medicines for the last 2 months. He said he has to take medicines for heart failure but does not remember the name. He did not about a week ago started him increasing leg swelling as well as increasing shortness of breath with exertional as well as when he is laying down. He came to the emergency room and was noted to be in decompensated congestive heart failure with BNP in the 2200 range with chest x-ray finding consistent with congestive heart failure. He was then started on IV diuresis and says today he is feeling better although still continues to have fluid overload. He is due tox was positive for cocaine, initially declined drug use but then when I did ask him he said he does use cocaine and notes it. He denies any IV drug abuse. He is currently not on any medications at home. Blood pressure has been stable. Last echocardiogram had shown preserved LV ejection fraction but this was few years ago. He has no known history of coronary artery disease although this is unclear. He also had? has a history of atrial fibrillation and has ablation in the past and was on Eliquis. However last September he had presented with acute CVA without any obvious other calcific/atherosclerotic disease and was recommended Eliquis. He is currently not taking the same. He said he got other present 3 months ago. Review of Systems Constitutional: Constitutional: Reports lethargy Eyes: Eyes: Reports no additional eye complaints Cardiovascular: Cardiovascular: Denies chest pain, Reports leg edema, Denies Loss of Consciousness, Denies palpitations, Reports dyspnea on exertion, Reports orthopnea and Reports other (No ICD discharge) Respiratory: Respiratory: Reports no additional respiratory complaints and Reports dyspnea on exertion Gastrointestinal: Gastrointestinal: Reports no additional gastrointestinal complaints Genitourinary: Genitourinary: Reports no additional male genitourinary complaints Musculoskeletal: Musculoskeletal: Reports no additional musculoskeletal complaints Integumentary/Breasts: Skin/Breast: Reports system reviewed and no additional complaints, except as docu Neurologic: Reports system reviewed and no additional complaints, except as documented Psychiatric: Psychiatric: Reports no additional psychiatric complaints Endocrine: Endocrine: Denies palpitations PMFSH Past Medical History Medical History Paroxysmal A-fib Cardiomyopathy Atrial flutter Defibrillator discharge ICD (implantable cardioverter-defibrillator) malfunction Arrhythmia Systolic heart failure Cardiac defibrillator in place Ventricular fibrillation Polysubstance use disorder Social History Social History Household Members: None Housing: Other Housing Other:: homeless Do you presently have visiting nurse or other home services: No Unable to assess alcohol history related to: Refusing to respond Alcohol intake: never Patient Tobacco Use Status: Never used Tobacco Tobacco use type: Cigarette Cigarette Packs Per Day: 1 Cigarettes Per Day: 20.0 Smoked in Last 30 Days: No e-Cigarette/Vaping Use: Currently Using Second Hand Smoke Exposure: No Use of substances other than those prescribed or required for medical reasons: No Substance Use Type: Crack/Cocaine and Heroin Advance Directives: Yes Advance Directives on File: Yes Advance Directives Date on File: 12/26/23 Nutrition Risks: No Nutritional Risk service: No Meds Allergies Allergy/AdvReac Type Severity Reaction Status Date / Time No Known Allergies Allergy Verified 05/24/25 03:09 Active Medications: Current Medications Acetaminophen (Acetaminophen 325 Mg Tablet) 650 mg PO Q6H PRN PRN Reason: Pain, Mild 1-3,fever,headache Apixaban (Apixaban 5 Mg Tablet) 5 mg PO BID [facility] Last Admin: 05/25/25 08:18 Dose: 5 mg Calcium Carbonate (Calcium Carbonate 750 Mg Tab.Chew) 750 mg PO Q4H PRN PRN Reason: Heartburn Furosemide (Furosemide 40 Mg/4 Ml Vial) 40 mg IVPUSH BID@0900,1800 [facility]; Protocol Last Admin: 05/25/25 08:18 Dose: 40 mg Magnesium Hydroxide (Milk Of Magnesia 30 Ml Oral.Susp) 30 ml PO DAILY PRN PRN Reason: Constipation Melatonin (Melatonin 3 Mg Tablet) 6 mg PO BEDTIME PRN PRN Reason: Insomnia Sodium Chloride (0.9 % Sodium Chloride Flush 3 Ml Syringe) 3 ml IVFLUSH QSHIFT [facility] Last Admin: 05/25/25 08:19 Dose: 3 ml Home Medications ?Medication ?Instructions ?Recorded ?Confirmed ?Last Taken ?Type No Known Home Meds 05/24/25 05/24/25 Unknown History Physical Exam Vital Signs: Vital Signs: Last Vital Signs Temp 98.0 F 05/25/25 06:00 Pulse 91 05/25/25 06:00 Resp 17 05/25/25 06:00 BP 124/91 H 05/25/25 08:18 Pulse Ox 100 05/25/25 06:00 O2 Del Method Room Air 05/25/25 06:00 BMI result Body Mass Index 28.8 Const: General: cooperative, comfortable, alert, awake and poor hygiene Nutritional Appearance: overweight Orientation/consciousness: patient oriented x3 HEENT: Head: Yes normocephalic and Yes atraumatic Neck: Neck: Yes supple and Yes JVD Resp: Effort & Inspection: normal respiratory effort Auscultation: no crackles and diminished lung sounds Cardio: Jugular venous distension: JVD Rate: tachycardic Rhythm: regular rhythm Heart sounds: S1 normal heart sound present, S2 normal heart sound present, no click, no gallops, no murmurs and no rubs GI: Auscultation: normal bowel sounds Skin: General skin exam: no rashes or lesions noted Neuro: General: patient oriented x3 and no focal motor deficits Extrem: General: No clubbing, No cyanosis and Yes edema Objective Labs and Meds 05/25/25 04:23 05/25/25 04:23 Lab results: Laboratory Results - last 24 hr 05/24/25 05/24/25 05/25/25 03:32 21:05 02:03 WBC RBC Hgb Hct MCV MCH MCHC RDW Plt Count MPV Absolute Nucleated RBC Nucleated RBC % (auto) Sodium Potassium Chloride Carbon Dioxide Anion Gap BUN Creatinine Estim Creat Clear Calc Estimated GFR Random Glucose Calcium Magnesium Troponin I High Sens 42.0 H D B-Natriuretic Peptide 2246 H Urine Opiates Screen Not Detected Ur Buprenorphine Scrn Not Detected Ur Oxycodone Screen Not Detected Urine Methadone Screen Not Detected Urine Fentanyl Screen Not Detected Ur Barbiturates Screen Not Detected Ur Phencyclidine Scrn Not Detected Ur Amphetamines Screen Not Detected U Benzodiazepines Scrn Not Detected Urine Cocaine Screen POSITIVE H U Marijuana (THC) Screen Not Detected Hepatitis C Ab (EIA) HIV 1&2 Ab/P24 Ag 4thGn 05/25/25 04:23 WBC 8.8 RBC 3.91 L Hgb 12.1 L Hct 37.3 L MCV 95.4 MCH 30.9 MCHC 32.4 RDW 15.6 Plt Count 265 MPV 10.7 Absolute Nucleated RBC 0.000 Nucleated RBC % (auto) 0.0 Sodium 143 Potassium 3.5 Chloride 109 H Carbon Dioxide 27 Anion Gap 11 L BUN 14 Creatinine 0.94 Estim Creat Clear Calc 101.1 Estimated GFR > 60 Random Glucose 138 H Calcium 8.0 L Magnesium 2.1 Troponin I High Sens B-Natriuretic Peptide Urine Opiates Screen Ur Buprenorphine Scrn Ur Oxycodone Screen Urine Methadone Screen Urine Fentanyl Screen Ur Barbiturates Screen Ur Phencyclidine Scrn Ur Amphetamines Screen U Benzodiazepines Scrn Urine Cocaine Screen U Marijuana (THC) Screen Hepatitis C Ab (EIA) Nonreactive HIV 1&2 Ab/P24 Ag 4thGn Nonreactive Assessment and Plan (1) Acute exacerbation of CHF (congestive heart failure): Status: Acute Acute decompensated congestive heart failure due to noncompliance/running out of his medications. I discussed with him importance of seeking medical care prior to developing decompensation as this would lead to repeated hospitalization in the future and poor overall long-term outcome. Guideline based medical therapy is recommended. Advised to continue diuresis. Strict intake and output chart needs to be pursued. I would also add Jardiance to his regimen 10 mg. Echocardiogram to be pursued. Check BNP and BNP. 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 Would start him on metoprolol once cocaine in his out of system starting most likely tomorrow at 25 mg b.i.d.. Overall prognosis retirement is guarded (2) Atrial fibrillation: Status: Acute Question prior history of atrial fibrillation status post ablation. CVA in the past. Start metoprolol tomorrow. I would also consider restarting Eliquis therapy given his CVA last September. Will follow with you Procedures Date of Service Date of Service: 05/25/25
--- NOTE | 2025-05-25 14:08 | MHC.CM.PN ---
Pt. is homeless, he does not have a PCP, HCP is on file, and confirmed: Olga Lidia. Pt. does not use home health services or DME. DCP: TBD, CM to follow for DC needs.
--- NOTE | 2025-05-25 16:11 | HO.PM.IMPN ---
Subjective Subjective Date of Service: 05/25/25 Interval History: No acute issues overnight. Breathing improved Review of Systems Denies chest pain Denies shortness of breath Denies nausea vomiting diarrhea Denies fever chills Physical Exam Vital Signs: Vital Signs: Last Vital Signs Temp 97.7 F 05/25/25 15:00 Pulse 67 05/25/25 15:00 Resp 16 05/25/25 15:00 BP 101/67 05/25/25 15:00 Pulse Ox 95 05/25/25 15:00 O2 Del Method Room Air 05/25/25 15:00 BMI result Body Mass Index 25.4 Const: Other: Awake alert no acute distress Resp: Other: Diminished at bases but otherwise clear without rales rhonchi or wheezes Cardio: Other: No S4; positive S1-S2; no S3 murmurs rubs or gallops GI: Other: Soft nontender nondistended normoactive bowel sounds Extrem: Other: No edema bilaterally Objective Data Active Medications Acetaminophen (Acetaminophen 325 Mg Tablet) 650 mg PO Q6H PRN PRN Reason: Pain, Mild 1-3,fever,headache Apixaban (Apixaban 5 Mg Tablet) 5 mg PO BID [facility] Last Admin: 05/25/25 08:18 Dose: 5 mg Documented By: MATEO Calcium Carbonate (Calcium Carbonate 750 Mg Tab.Chew) 750 mg PO Q4H PRN PRN Reason: Heartburn Furosemide (Furosemide 40 Mg/4 Ml Vial) 40 mg IVPUSH BID@0900,1800 [facility]; Protocol Last Admin: 05/25/25 08:18 Dose: 40 mg Documented By: MATEO Magnesium Hydroxide (Milk Of Magnesia 30 Ml Oral.Susp) 30 ml PO DAILY PRN PRN Reason: Constipation Melatonin (Melatonin 3 Mg Tablet) 6 mg PO BEDTIME PRN PRN Reason: Insomnia Sodium Chloride (0.9 % Sodium Chloride Flush 3 Ml Syringe) 3 ml IVFLUSH QSHIFT [facility] Last Admin: 05/25/25 08:19 Dose: 3 ml Documented By: MATEO Labs 05/25/25 04:23 05/25/25 04:23 Labs: Laboratory Results - last 24 hr 05/25/25 05/25/25 02:03 04:23 MCV 95.4 MCH 30.9 MCHC 32.4 RDW 15.6 Plt Count 265 MPV 10.7 Absolute Nucleated RBC 0.000 Nucleated RBC % (auto) 0.0 Anion Gap 11 L Estim Creat Clear Calc 101.1 Estimated GFR > 60 Random Glucose 138 H Calcium 8.0 L Magnesium 2.1 Urine Opiates Screen Not Detected Ur Buprenorphine Scrn Not Detected Ur Oxycodone Screen Not Detected Urine Methadone Screen Not Detected Urine Fentanyl Screen Not Detected Ur Barbiturates Screen Not Detected Ur Phencyclidine Scrn Not Detected Ur Amphetamines Screen Not Detected U Benzodiazepines Scrn Not Detected Urine Cocaine Screen POSITIVE H U Marijuana (THC) Screen Not Detected Hepatitis C Ab (EIA) Nonreactive HIV 1&2 Ab/P24 Ag 4thGn Nonreactive Microbiology Microbiology Results: Microbiology 05/24/25 07:54 Blood Culture - Preliminary Blood - Venous No growth after 24 hours. 05/24/25 07:48 Blood Culture - Preliminary Blood - Venous No growth after 24 hours. Assessment and Plan (1) Acute exacerbation of CHF (congestive heart failure): Status: Acute (2) Atrial fibrillation: Status: Acute (3) Polysubstance use disorder: Status: Acute Plan 50M PMH substance dependence, paroxysmal AFib, COPD, VFib/cardiac arrest status post AICD, chronic diastolic CHF presented with shortness of breath and lower extremity edema 1.Acute CHF unspecified -Lasix 40 IV q.12 hours -echo with estimated LVEF of 10-15% -as per cardiology. . . Restart metoprolol in a.m. -await further cardiac input 2..History of VFib/cardiac arrest -Status post AICD -continue current therapies 3.Paroxysmal AFib -Eliquis as ordered -metoprolol in a.m. as per Cardiology Apixaban Full Code Requires ongoing hospitalization for IV diuresis as well as ongoing specialty consultation Quality Stroke Does the patient have a stroke diagnosis?: No VTE Prior VTE?: No VTE Risk Level:: Medical - moderate - high VTE Device Contraindication: Treatment Not Indicated VTE Drug Contraindication: N/A - Med Ordered
[2025-05-26] VITALS (7 sets, daily range): BP systolic 94–109; BP diastolic 54–85; PULSE 94–114; RESP 16–20; TEMP 36.7–37.1; O2SAT 94–99
--- NOTE | 2025-05-26 05:45 | PC.NURSE ---
Patient had multiple runs of V tach last night, the shortest being 3 beats and as long as 14 seconds with aicd spikes. He states he did not feel anything/ asymptomatic at this time. MD aware of events.
[2025-05-26 06:34] LABS: MANUAL DIFF FLAG NO
[2025-05-26 06:40] LABS: Hematocrit 37.9 % (42.0-52.0); Hemoglobin 12.7 g/dl (14.0-18.0); Imm Gran Abs Auto 0.03 X10*3/uL (0.00-0.03); Imm Gran Pct Auto 0.3 % (0.0-0.4); Lymphocytes Absolute Auto 1.9 X10*3/uL (1.2-4.9); Mean Corpuscular HGB Conc 33.5 g/dl (31.0-36.0); Mean Corpuscular Hemoglobin 31.7 pg (27.0-33.0); Mean Corpuscular Volume 94.5 fL (80.0-98.0); NRBC Abs Auto 0.000 X10*3/uL (0.0-0.012); NRBC Pct Auto 0.0 /100WBC (0.0-0.2); Platelet Count 263 X10*3/uL (160-400); Red Blood Count 4.01 X10*6/uL (4.60-5.80); White Blood Count 11.3 X10*3/uL (4.8-10.8)
[2025-05-26 06:56] LABS: Alanine Aminotransferase 41 U/L (0-40); Albumin Level 2.7 g/dL (3.5-5.0); Alkaline Phosphatase 94 U/L (39-117); Anion Gap 11 (12-20); Aspartate Amino Transferase 25 U/L (5-37); Blood Urea Nitrogen 21 mg/dL (9-16); Calcium 8.2 mg/dL (8.4-10.2); Carbon Dioxide 28 mmol/L (22-29); Chloride 106 mmol/L (96-108); Creatinine Clr Calc Pharmacy 72.0; Estimated Glomerular Filt Rate > 60; Potassium 4.1 mmol/L (3.3-5.1); Sodium 141 mmol/L (135-145); Total Protein 5.1 g/dL (6.5-8.0)
[2025-05-26 06:57] LABS: B Type Natriuretic Peptide 1655 pg/mL (<100)
[2025-05-26] MEDS: Furosemide 40 MG/4 ML VIAL IVPUSH (08:32)
[2025-05-26] MEDS: 0.9 % Sodium Chloride Flush 3 ML SYRINGE IVFLUSH ×2 (08:32→20:31)
--- NOTE | 2025-05-26 10:53 | P.PNCA_ITS ---
Subjective Subjective Date of Service: 05/26/25 Principal diagnosis: Decompensated congestive heart failure, cardiomyopathy Interval history: Patient breathing better feeling better off oxygen currently. Still remains fluid overloaded. Echocardiogram Kary blancas with markedly reduced LV ejection fraction. Overall negative balance of 4600 cc. Review of Systems Constitutional: Reports no additional constitutional complaints Cardiovascular: Denies chest pain, Reports leg edema, Denies palpitations and Reports dyspnea Respiratory: Reports dyspnea Gastrointestinal: Reports no additional gastrointestinal complaints Reports system reviewed and no additional complaints, except as documented Endocrine: Denies palpitations Physical Exam Vital Signs: Last Vital Signs Temp 98.7 F 05/26/25 08:00 Pulse 108 H 05/26/25 08:00 Resp 17 05/26/25 08:00 BP 109/85 05/26/25 08:00 Pulse Ox 98 05/26/25 08:00 O2 Del Method Room Air 05/26/25 08:00 BMI result Body Mass Index 25.4 Const General: cooperative, comfortable, alert and awake Nutritional Appearance: average body habitus Orientation/consciousness: patient oriented x3 Neck Neck: Yes trachea midline, Yes supple and Yes JVD Resp Effort & Inspection: normal respiratory effort Auscultation: clear to auscultation bilaterally Cardio Jugular venous distension: JVD Rate: regular rate Rhythm: regular rhythm Heart sounds: S1 normal heart sound present, S2 normal heart sound present, no click, Gallop heart sound present S4 gallop, no murmurs and no rubs GI Auscultation: normal bowel sounds Skin General skin exam: no rashes or lesions noted Neuro General: patient oriented x3 and no focal motor deficits Extrem General: No clubbing, No cyanosis and Yes edema Objective Labs and Meds 05/26/25 06:28 05/26/25 06:28 Lab results: Laboratory Results - last 24 hr 05/26/25 06:28 WBC 11.3 H RBC 4.01 L Hgb 12.7 L Hct 37.9 L MCV 94.5 MCH 31.7 MCHC 33.5 RDW 15.2 Plt Count 263 MPV 10.4 Immature Gran % (Auto) 0.3 Neut % (Auto) 65.8 Lymph % (Auto) 16.5 L [place] % (Auto) 7.0 Eos % (Auto) 9.8 H Baso % (Auto) 0.6 Lymph # (Auto) 1.9 [place] # (Auto) 0.8 Eos # (Auto) 1.1 H Baso # (Auto) 0.1 Abs Immat Gran (auto) 0.03 Absolute Neuts (auto) 7.4 Absolute Nucleated RBC 0.000 Nucleated RBC % (auto) 0.0 Sodium 141 Potassium 4.1 Chloride 106 Carbon Dioxide 28 Anion Gap 11 L BUN 21 H Creatinine 1.20 Estim Creat Clear Calc 72.0 Estimated GFR > 60 Fasting Glucose 122 H Calcium 8.2 L Total Bilirubin 0.2 AST 25 ALT 41 H Alkaline Phosphatase 94 B-Natriuretic Peptide 1655 H Total Protein 5.1 L Albumin 2.7 L Progress Note: A&P Assessment and plan (1) Acute exacerbation of CHF (congestive heart failure): Status: Acute Assessment and Plan: Decompensated congestive heart failure in this middle-aged man with severe LV systolic dysfunction. He was no prior history of coronary disease in his appears to be probably still nonischemic although ischemic causes will need to be ruled out at outpatient. 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 Strongly discussed with him to avoid cocaine use in the future. He showed understanding. I would continue diuresis but reduced diuretic dose of 40 mg daily Lasix as he is diuresing well in his creatinine has bumped up slightly probably from lower stroke volume. Would add Entresto to his regimen for neurohormonal modulation as well as Jardiance 10 mg. Would hold off on beta- blockers due to still decompensated status although heart rate is improving gradually. Overall prognosis is guarded. Will follow with you Time Spent With Patient Time: Total time managing care of this patient today ____ minutes. Progress Note: Quality Stroke Does the patient have a stroke diagnosis?: No Procedures Date of Service Date of Service: 05/26/25
[2025-05-26] MEDS: Sacubitril/Valsartan 24/26 1 TAB TABLET PO ×2 (11:48→20:31)
--- NOTE | 2025-05-26 16:17 | HO.PM.IMPN ---
Subjective Subjective Date of Service: 05/26/25 Interval History: No acute issues overnight. Breathing improved Review of Systems Denies chest pain Denies shortness of breath Denies nausea vomiting diarrhea Denies fever chills Physical Exam Vital Signs: Vital Signs: Last Vital Signs Temp 98.4 F 05/26/25 15:25 Pulse 94 05/26/25 15:25 Resp 18 05/26/25 15:25 BP 95/65 05/26/25 15:25 Pulse Ox 99 05/26/25 15:25 O2 Del Method Room Air 05/26/25 15:25 BMI result Body Mass Index 25.4 Const: Other: Awake alert no acute distress Resp: Other: Diminished at bases but otherwise clear without rales rhonchi or wheezes Cardio: Other: No S4; positive S1-S2; no S3 murmurs rubs or gallops GI: Other: Soft nontender nondistended normoactive bowel sounds Extrem: Other: No edema bilaterally Objective Data Active Medications Acetaminophen (Acetaminophen 325 Mg Tablet) 650 mg PO Q6H PRN PRN Reason: Pain, Mild 1-3,fever,headache Apixaban (Apixaban 5 Mg Tablet) 5 mg PO BID [facility] Last Admin: 05/26/25 08:32 Dose: 5 mg Documented By: JACE Calcium Carbonate (Calcium Carbonate 750 Mg Tab.Chew) 750 mg PO Q4H PRN PRN Reason: Heartburn Empagliflozin (Empagliflozin 10 Mg Tablet) 10 mg PO DAILY [facility] Last Admin: 05/26/25 09:18 Dose: 10 mg Documented By: JACE Furosemide (Furosemide 40 Mg/4 Ml Vial) 40 mg IVPUSH DAILY [facility]; Protocol Magnesium Hydroxide (Milk Of Magnesia 30 Ml Oral.Susp) 30 ml PO DAILY PRN PRN Reason: Constipation Melatonin (Melatonin 3 Mg Tablet) 6 mg PO BEDTIME PRN PRN Reason: Insomnia Sacubitril/Valsartan (Sacubitril/Valsartan 1 Tab Tablet) 1 tab PO BID [facility]; Protocol Last Admin: 05/26/25 11:48 Dose: 1 tab Documented By: JACE Sodium Chloride (0.9 % Sodium Chloride Flush 3 Ml Syringe) 3 ml IVFLUSH QSHIFT [facility] Last Admin: 05/26/25 08:32 Dose: 3 ml Documented By: JACE Labs 05/26/25 06:28 05/26/25 06:28 Labs: Laboratory Results - last 24 hr 05/26/25 06:28 MCV 94.5 MCH 31.7 MCHC 33.5 RDW 15.2 Plt Count 263 MPV 10.4 Immature Gran % (Auto) 0.3 Neut % (Auto) 65.8 Lymph % (Auto) 16.5 L [place] % (Auto) 7.0 Eos % (Auto) 9.8 H Baso % (Auto) 0.6 Lymph # (Auto) 1.9 [place] # (Auto) 0.8 Eos # (Auto) 1.1 H Baso # (Auto) 0.1 Abs Immat Gran (auto) 0.03 Absolute Neuts (auto) 7.4 Absolute Nucleated RBC 0.000 Nucleated RBC % (auto) 0.0 Anion Gap 11 L Estim Creat Clear Calc 72.0 Estimated GFR > 60 Fasting Glucose 122 H Calcium 8.2 L Total Bilirubin 0.2 AST 25 ALT 41 H Alkaline Phosphatase 94 B-Natriuretic Peptide 1655 H Total Protein 5.1 L Albumin 2.7 L Microbiology Microbiology Results: Microbiology 05/24/25 07:54 Blood Culture - Preliminary Blood - Venous No growth after 48 hours. 05/24/25 07:48 Blood Culture - Preliminary Blood - Venous No growth after 48 hours. Assessment and Plan (1) Acute exacerbation of CHF (congestive heart failure): Status: Acute (2) Polysubstance use disorder: Status: Acute (3) Pulmonary edema: Status: Acute Plan 50M PMH substance dependence, paroxysmal AFib, COPD, VFib/cardiac arrest status post AICD, chronic diastolic CHF presented with shortness of breath and lower extremity edema 1.Acute CHF unspecified -decrease Lasix 40 IV qd -echo with estimated LVEF of 10-15% -add Entresto and Jardiance -follow clinically... Follow renal/divalents 2..History of VFib/cardiac arrest -Status post AICD -continue current therapies 3.Paroxysmal AFib -Eliquis as ordered -metoprolol in a.m. as per Cardiology Apixaban Full Code Requires ongoing hospitalization for IV diuresis as well as ongoing specialty consultation Quality Stroke Does the patient have a stroke diagnosis?: No VTE Prior VTE?: No VTE Risk Level:: Medical - moderate - high VTE Device Contraindication: Treatment Not Indicated VTE Drug Contraindication: N/A - Med Ordered
--- NOTE | 2025-05-26 18:15 | MHC.RECOVRN ---
TW attempted to meet with pt with the help of interpretive services in 487 following consult to Addiction Medicine for polysubstance use? Intention was to discuss substance use and recovery/support options. On approach pt was sitting in bed, and just had a visit from the provider and primary RN. Pt was sitting in bed in no apparent distress. Pt was guarded with poor eye contact. Pt states he has been smoking crack cocaine for 6 months and has been free from opiates for over 1 year. He reports he was on ?Vivitrol? but is no longer receiving it and could or would not state why he stopped receiving the injection. When asked if he would like support or resources he stated, ?It doesn?t really help, it's just a lot of talk?. Pt then turned up the television and began changing the channel.? Pt declines intervention, NORMA, or appt for tx related to AUD at this time.?
--- NOTE | 2025-05-26 22:09 | PC.NURSE ---
Pt with 6 beat Vtach. Asymptomatic. BP 103/60. MD Vail made aware. Plan of care ongoing.
[2025-05-27 04:00] VITALS: BP 105/72; PULSE 91; RESP 18; TEMP 36.4; O2SAT 95
--- NOTE | 2025-05-27 06:36 | PC.NURSE ---
pt had approximately 5 seconds of atrial tach. 12 beats. Pt attempting to pee. Asymptomatic. MD desouza made aware. Plan of care ongoing.
[2025-05-27 07:46] VITALS: BP 102/77; PULSE 89; RESP 20; TEMP 36.2; O2SAT 97
[2025-05-27 08:09] LABS: MANUAL DIFF FLAG NO
[2025-05-27 08:20] LABS: Hematocrit 40.6 % (42.0-52.0); Hemoglobin 13.1 g/dl (14.0-18.0); Imm Gran Abs Auto 0.02 X10*3/uL (0.00-0.03); Imm Gran Pct Auto 0.2 % (0.0-0.4); Lymphocytes Absolute Auto 2.0 X10*3/uL (1.2-4.9); Mean Corpuscular HGB Conc 32.3 g/dl (31.0-36.0); Mean Corpuscular Hemoglobin 31.3 pg (27.0-33.0); Mean Corpuscular Volume 96.9 fL (80.0-98.0); NRBC Abs Auto 0.000 X10*3/uL (0.0-0.012); NRBC Pct Auto 0.0 /100WBC (0.0-0.2); Platelet Count 300 X10*3/uL (160-400); Red Blood Count 4.19 X10*6/uL (4.60-5.80); White Blood Count 9.5 X10*3/uL (4.8-10.8)
[2025-05-27] MEDS: Sacubitril/Valsartan 24/26 1 TAB TABLET PO (08:48)
[2025-05-27] MEDS: Furosemide 40 MG/4 ML VIAL IVPUSH (08:49)
[2025-05-27] MEDS: 0.9 % Sodium Chloride Flush 3 ML SYRINGE IVFLUSH (08:49)
[2025-05-27 10:42] LABS: Alanine Aminotransferase 35 U/L (0-40); Albumin Level 2.7 g/dL (3.5-5.0); Alkaline Phosphatase 87 U/L (39-117); Anion Gap 10 (12-20); Aspartate Amino Transferase 23 U/L (5-37); Blood Urea Nitrogen 20 mg/dL (9-16); Calcium 8.2 mg/dL (8.4-10.2); Carbon Dioxide 26 mmol/L (22-29); Chloride 109 mmol/L (96-108); Creatinine Clr Calc Pharmacy 90.0; Estimated Glomerular Filt Rate > 60; Potassium 4.0 mmol/L (3.3-5.1); Sodium 141 mmol/L (135-145); Total Protein 5.1 g/dL (6.5-8.0)
[2025-05-27 11:35] VITALS: BP 103/76; PULSE 98; RESP 18; TEMP 36.4; O2SAT 100
--- NOTE | 2025-05-27 11:57 | PM.PNCARD ---
Subjective Subjective Date of Service: 05/27/25 Principal diagnosis: Decompensated congestive heart failure, cardiomyopathy Interval history: Patient is feeling a lot better. Has diuresed well. No significant heart failure symptoms at this point time. Blood pressure is stable on current medications. Review of Systems Constitutional: Reports no additional constitutional complaints Cardiovascular: Denies chest pain, Reports leg edema (Improved), Denies lightheadedness, Denies palpitations, Denies dyspnea and Denies dyspnea on exertion Respiratory: Denies dyspnea and Denies dyspnea on exertion Gastrointestinal: Reports no additional gastrointestinal complaints Reports system reviewed and no additional complaints, except as documented Endocrine: Denies palpitations Physical Exam Vital Signs: Last Vital Signs Temp 97.6 F 05/27/25 11:35 Pulse 98 05/27/25 11:35 Resp 18 05/27/25 11:35 BP 103/76 05/27/25 11:35 Pulse Ox 100 05/27/25 11:35 O2 Del Method Room Air 05/27/25 11:35 BMI result Body Mass Index 25.4 Const General: cooperative, comfortable, alert and awake Nutritional Appearance: average body habitus Orientation/consciousness: patient oriented x3 Neck Neck: Yes trachea midline, Yes supple and Yes no JVD Resp Effort & Inspection: normal respiratory effort Auscultation: clear to auscultation bilaterally Cardio Jugular venous distension: JVD Rate: regular rate Rhythm: regular rhythm Heart sounds: S1 normal heart sound present, S2 normal heart sound present, no click, no gallops, no murmurs and no rubs GI Auscultation: normal bowel sounds Skin General skin exam: no rashes or lesions noted Neuro General: patient oriented x3 and no focal motor deficits Extrem General: No clubbing, No cyanosis and Yes edema Objective Labs and Meds 05/27/25 06:45 05/27/25 06:45 Lab results: Laboratory Results - last 24 hr 05/27/25 06:45 WBC 9.5 RBC 4.19 L Hgb 13.1 L Hct 40.6 L MCV 96.9 MCH 31.3 MCHC 32.3 RDW 15.2 Plt Count 300 MPV 10.9 Immature Gran % (Auto) 0.2 Neut % (Auto) 61.4 Lymph % (Auto) 20.6 [place] % (Auto) 7.3 Eos % (Auto) 9.4 H Baso % (Auto) 1.1 Lymph # (Auto) 2.0 [place] # (Auto) 0.7 Eos # (Auto) 0.9 H Baso # (Auto) 0.1 Abs Immat Gran (auto) 0.02 Absolute Neuts (auto) 5.8 Absolute Nucleated RBC 0.000 Nucleated RBC % (auto) 0.0 Sodium 141 Potassium 4.0 Chloride 109 H Carbon Dioxide 26 Anion Gap 10 L BUN 20 H Creatinine 0.96 Estim Creat Clear Calc 90.0 Estimated GFR > 60 Fasting Glucose 103 H Calcium 8.2 L Total Bilirubin 0.2 AST 23 ALT 35 Alkaline Phosphatase 87 Total Protein 5.1 L Albumin 2.7 L Progress Note: A&P Assessment and plan (1) Acute exacerbation of CHF (congestive heart failure): Status: Acute Assessment and Plan: Decompensated congestive heart failure secondary to severe LV systolic dysfunction, 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 Ischemic etiology needs to be ruled out. Will suggest outpatient Rosario Mibi. For now his heart failure has improved significantly. Patient can be discharged home on current therapy with Entresto, Jardiance and 40 mg of Lasix. Please add 25 mg of Toprol-XL. Will set him up for follow-up in 7-10 days in the clinic. Advised complete abstinence from cocaine use. He understands. Management of heart failure was discussed in details. (2) Atrial fibrillation: Status: Acute Assessment and Plan: Prior history of paroxysmal atrial fibrillation with prior stroke. I would consider restarting his Eliquis therapy at 5 mg b.i.d.. Continue metoprolol as above. Avoidance of stimulants was discussed. Continue rhythm control approach. Will follow up in the clinic. Thank you for allowing me to partake in his care Time Spent With Patient Time: Total time managing care of this patient today ____ minutes. Progress Note: Quality Stroke Does the patient have a stroke diagnosis?: No Procedures Date of Service Date of Service: 05/27/25
--- NOTE | 2025-05-27 12:33 | P.DS_ITS ---
DS: Providers Provider Date of Service: 05/27/25 Date of admission: 05/24/25 08:07 Date of discharge: 05/27/25 Primary care physician: [facility] Consults: 05/24/25 10:16 Addiction Medicine Provider Routine Consulting Provider: Addiction Covering Reason for consultation: polysubstance 05/24/25 10:17 Consult to Cardiology Routine Consulting Provider: [facility] Reason for consultation: chf Has provider been notified: Yes DS: Diagnosis Discharge Diagnosis (1) Acute exacerbation of CHF (congestive heart failure): Status: Acute (2) Atrial fibrillation: Status: Acute DS: Summary Hospital Course Hospital Course: 50M PMH substance dependence, paroxysmal AFib, COPD, VFib/cardiac arrest status post AICD, chronic diastolic CHF presented with shortness of breath and lower extremity edema. Patient states symptoms began over the last few days, worsening lower extremity edema, orthopnea, midsternal chest pain. Denies fever or chills. Reports he has been noncompliant with medications for about 2 months. Denies current IV drug use reports smoking crack cocaine. In ED chest x-ray with perihilar infiltrates versus edema. EKG with sinus tachycardia and PVCs. Hospital [facility] Admitted to telemetry where monitor failed to demonstrate any acute dysrhythmias. Seen in consultation by Cardiology and diuresed with IV Lasix. Adequate diuresis with improvement in O2 sats and edema. Patient was also started on Entresto and we will follow up with Cardiology as an outpatient. Repeat 2D echo demonstrated an EF of 10-15%. Patient is strongly advised to avoid smoking crack cocaine. He is also advised to make an appointment at [facility] for the next available appointment for PCP. Dr. Benavides's office will call for an appointment for him to follow up Time Attestation Discharge Coordination Time (in mins): 35 Quality: Safe Use of Opioids Does Pt have an Active Cancer Diagnosis on the Problem List?: No Quality: Stroke Does the patient have a stroke diagnosis?: No Physical Exam Vital Signs: Vital Signs: Last Vital Signs Temp 97.6 F 05/27/25 11:35 Pulse 98 05/27/25 11:35 Resp 18 05/27/25 11:35 BP 103/76 05/27/25 11:35 Pulse Ox 100 05/27/25 11:35 O2 Del Method Room Air 05/27/25 11:35 BMI result Body Mass Index 25.4 Const: Other: Awake alert no acute distress Resp: Other: Diminished at bases but otherwise clear without rales rhonchi or wheezes Cardio: Other: No S4; positive S1-S2; no S3 murmurs rubs or gallops GI: Other: Soft nontender nondistended normoactive bowel sounds Extrem: Other: No edema bilaterally DS: Data Data Completed and Pending Labs on day of discharge: Laboratory Results - last 24 hr 05/27/25 06:45 WBC 9.5 RBC 4.19 L Hgb 13.1 L Hct 40.6 L MCV 96.9 MCH 31.3 MCHC 32.3 RDW 15.2 Plt Count 300 MPV 10.9 Immature Gran % (Auto) 0.2 Neut % (Auto) 61.4 Lymph % (Auto) 20.6 [place] % (Auto) 7.3 Eos % (Auto) 9.4 H Baso % (Auto) 1.1 Lymph # (Auto) 2.0 [place] # (Auto) 0.7 Eos # (Auto) 0.9 H Baso # (Auto) 0.1 Abs Immat Gran (auto) 0.02 Absolute Neuts (auto) 5.8 Absolute Nucleated RBC 0.000 Nucleated RBC % (auto) 0.0 Sodium 141 Potassium 4.0 Chloride 109 H Carbon Dioxide 26 Anion Gap 10 L BUN 20 H Creatinine 0.96 Estim Creat Clear Calc 90.0 Estimated GFR > 60 Fasting Glucose 103 H Calcium 8.2 L Total Bilirubin 0.2 AST 23 ALT 35 Alkaline Phosphatase 87 Total Protein 5.1 L Albumin 2.7 L Preliminary micro results at discharge 05/24/25 07:54 Blood Culture - Preliminary Blood - Venous No growth after 48 hours. 05/24/25 07:48 Blood Culture - Preliminary Blood - Venous No growth after 48 hours. Discharge Plan Discharge Anticipated Discharge Date/Time: 05/27/25 12:25 Patient Disposition: Home, Self-Care Discharge Diagnosis: Decompensated systolic congestive heart failure Referrals: [facility] [Primary Care Provider, Medical] - 1 Week Discharge Medications: New Eliquis 5 mg Tablet 5 mg PO BID Qty: 60 2RF Jardiance 10 mg Tablet 10 mg PO DAILY Qty: 30 2RF sacubitril-valsartan [Entresto] 24-26 mg Tablet 1 tab PO BID Qty: 60 2RF Protocol: Hold for SBP< HOLD for SBP < : 90 furosemide [Lasix] 40 mg tablet 40 mg PO DAILY Qty: 30 2RF metoprolol succinate [Toprol XL] 25 mg tablet extended release 24 hr 25 mg PO DAILY Qty: 30 0RF Discharge Orders: Discharge Order (Routine); Ordered 05/27/25 Ordered By: Joe Mclaughlin Diet: Advance to usual diet Activity on Discharge: As tolerated Stand Alone Forms: Patient Portal Discharge page Print Language: [place] Care Plan Goals: Take all meds as outlined on your discharge summary Health Concerns: Dr. Benavides's office will call you for follow up Plan of Treatment: Call [facility] and make an appointment for a new PCP. Avoid all street drugs Assessment: See discharge summary
--- NOTE | 2025-05-27 13:04 | MHC.CM.PN ---
Pt. medically cleared to [place], He will go to his cousin's home at [address] [place] [address] via [facility] shuttle.
== END 2025-05-27 14:20 | disposition home or self-care (01) | DRG 816 ==
LOC: HO.ED 08:07 → HO.EDOVER 08:23 → HO.IMC 05-25 13:36
PROVIDERS: Nurse Practitioner Psychiatric/Mental Health; Student in an Organized Health Care Education/Training Program; Admitting Provider Internal Medicine; Emergency Provider Emergency Medicine; Visit Provider Hospitalist
DX: T40.5X1A Poisoning by cocaine, accidental (unintentional), initial encounter (principal); I50.23 Acute on chronic systolic (congestive) heart failure; I42.7 Cardiomyopathy due to drug and external agent; Z86.74 Personal history of sudden cardiac arrest; Z59.02 Unsheltered homelessness; F14.10 Cocaine abuse, uncomplicated; F17.210 Nicotine dependence, cigarettes, uncomplicated; F19.20 Other psychoactive substance dependence, uncomplicated; I48.0 Paroxysmal atrial fibrillation; Z86.73 Personal history of transient ischemic attack (TIA), and cerebral infarction without residual deficits; Z95.810 Presence of automatic (implantable) cardiac defibrillator; Z71.6 Tobacco abuse counseling; Z91.148 Patient's other noncompliance with medication regimen for other reason; Z79.01 Long term (current) use of anticoagulants; Z79.899 Other long term (current) drug therapy
CPT/HCPCS: 36415; 71046; 80048; 80053; 80307; 83605; 83735; 83880; 84484; 85025; 85027; 86803; 87040; 87389; 93005; 93306; 93970; 94640; 99285; J0696; J1271; J1938; J3475; Q9957

== ENCOUNTER → 2025-05-24 03:24 | Outpatient (BNV) | payer MEDICAID, SELFPAY | PROVIDERS: Admitting Provider Internal Medicine; Emergency Provider Emergency Medicine; Visit Provider Internal Medicine Cardiovascular Disease | DX: I49.3 Ventricular premature depolarization (principal) | CPT/HCPCS: 93010 ==

== ENCOUNTER → 2025-05-24 04:10 | Outpatient (BNV) | payer MEDICAID, SELFPAY | PROVIDERS: Visit Provider General Practice | DX: R22.43 Localized swelling, mass and lump, lower limb, bilateral (principal); J90 Pleural effusion, not elsewhere classified | CPT/HCPCS: 71046; 93970 ==

== ENCOUNTER 2025-05-24 08:07 | Outpatient (BNV) | payer MEDICAID, SELFPAY | END 2025-05-25 07:00 | PROVIDERS: Admitting Provider Internal Medicine; Emergency Provider Emergency Medicine; Visit Provider Internal Medicine Cardiovascular Disease | DX: I50.30 Unspecified diastolic (congestive) heart failure (principal); I34.0 Nonrheumatic mitral (valve) insufficiency; I35.1 Nonrheumatic aortic (valve) insufficiency; I51.7 Cardiomegaly | CPT/HCPCS: 93306 ==

== ENCOUNTER → 2025-05-24 08:07 | Outpatient (BNV) | payer MEDICAID, SELFPAY | PROVIDERS: Admitting Provider Internal Medicine; Emergency Provider Emergency Medicine; Visit Provider Internal Medicine Cardiovascular Disease | DX: I50.9 Heart failure, unspecified (principal); I48.91 Unspecified atrial fibrillation | CPT/HCPCS: 99222 ==

== ENCOUNTER → 2025-05-24 08:07 | Outpatient (BNV) | payer OTHER, SELFPAY | PROVIDERS: Admitting Provider Internal Medicine; Emergency Provider Emergency Medicine; Visit Provider Nurse Practitioner Psychiatric/Mental Health | DX: F14.10 Cocaine abuse, uncomplicated (principal) | CPT/HCPCS: 99231 ==

== ENCOUNTER → 2025-05-24 08:07 | Outpatient (BNV) | payer MEDICAID, SELFPAY | PROVIDERS: Admitting Provider Internal Medicine; Emergency Provider Emergency Medicine; Visit Provider Internal Medicine | DX: I50.9 Heart failure, unspecified (principal); I48.91 Unspecified atrial fibrillation | CPT/HCPCS: 99223; 99239 ==

== ENCOUNTER 2025-07-14 04:06 | Inpatient (IN) | payer MEDICAID, SELFPAY ==
[2025-07-14] VITALS (18 sets, daily range): BP systolic 101–139; BP diastolic 8–95; PULSE 88–124; RESP 15–25; TEMP 36.4–36.8; O2SAT 93–98; BMI 34.0; BMI 29.4
--- NOTE | ~2025-07-14 | XR_ITS ---
CLINICAL HISTORY: cp sob 1 view chest x-ray Comparison: CR - XR CHEST 2V - 05/24/25 04:04 EDT Findings: There are bilateral pleural effusions. There is no focal pneumonia. Cardiac pacemaker is present. Cardiomediastinal structures are magnified. No acute fracture. IMPRESSION: 1. Bilateral effusions. Possible cardiomegaly. This document has been electronically signed by: Jovanny Irving MD on 07/14/2025 07:04:55
[2025-07-14 05:55] LABS: Hematocrit 39.5 % (42.0-52.0); Hemoglobin 13.0 g/dl (14.0-18.0); Imm Gran Abs Auto 0.01 X10*3/uL (0.00-0.03); Imm Gran Pct Auto 0.1 % (0.0-0.4); Lymphocytes Absolute Auto 1.5 X10*3/uL (1.2-4.9); MANUAL DIFF FLAG NO; Mean Corpuscular HGB Conc 32.9 g/dl (31.0-36.0); Mean Corpuscular Hemoglobin 31.3 pg (27.0-33.0); Mean Corpuscular Volume 95.2 fL (80.0-98.0); NRBC Abs Auto 0.000 X10*3/uL (0.0-0.012); NRBC Pct Auto 0.0 /100WBC (0.0-0.2); Platelet Count 286 X10*3/uL (160-400); Red Blood Count 4.15 X10*6/uL (4.60-5.80); White Blood Count 8.8 X10*3/uL (4.8-10.8)
[2025-07-14 05:56] LABS: INTERNATIONAL NORM RATIO 1.3 (0.9-1.1); Prothrombin Time 14.9 SEC (10.9-12.4)
--- NOTE | 2025-07-14 06:05 | ED.CHESTPAIN ---
HPI - Chest Pain General Chief Complaint: Chest Pain Stated Complaint: SoB CP Time Seen by Provider: 07/14/25 06:05 Source: EMS and historic interpreter Mode of arrival: EMS Limitations: language barrier History of Present Illness ED Provider: HPI narrative: 50-year-old male with a history of CHF, atrial flutter, CHF, ICD, VFib, polysubstance use disorder, continues to be a smoker, presenting with shortness of breath and anasarca of bilateral lower extremities, and groin area, he states has been out of his heart medication for 2 weeks, states has had a very hard time walking because his legs are not bending, and he gets very winded. Related Data Previous Rx's ?Medication ?Instructions ?Recorded apixaban 5 mg tablet (Eliquis) 5 mg PO BID #60 tabs 05/27/25 empagliflozin 10 mg tablet 10 mg PO DAILY #30 tabs 05/27/25 (Jardiance) furosemide 40 mg tablet (Lasix) 40 mg PO DAILY #30 tabs 05/27/25 metoprolol succinate 25 mg 25 mg PO DAILY #30 tabs 05/27/25 tablet,extended release 24 hr (Toprol XL) sacubitril 24 mg-valsartan 26 mg 1 tab PO BID #60 tabs 05/27/25 tablet (Entresto) Allergies Allergy/AdvReac Type Severity Reaction Status Date / Time No Known Allergies Allergy Verified 05/24/25 03:09 Review of Systems Constitutional: Constitutional: Reports as per [facility] Past Medical History Medical History Paroxysmal A-fib Cardiomyopathy Atrial flutter Defibrillator discharge ICD (implantable cardioverter-defibrillator) malfunction Arrhythmia Systolic heart failure Cardiac defibrillator in place Ventricular fibrillation Polysubstance use disorder Social History Social History Household Members: Family Housing: Apartment Housing Other:: homeless Do you presently have visiting nurse or other home services: No Alcohol intake: never Patient Tobacco Use Status: Current everyday Tobacco user Tobacco use type: Cigarette Cigarette Packs Per Day: 1 Cigarettes Per Day: 7 Years Smoked: 38 e-Cigarette/Vaping Use: Currently Using Second Hand Smoke Exposure: Yes Substance Use Type: Crack/Cocaine and Heroin Advance Directives: Yes Advance Directives on File: Yes Advance Directives Date on File: 12/26/23 service: No Physical Exam Vital Signs: Vital Signs: Last Vital Signs Temp 98.2 F 07/14/25 07:29 Pulse 89 07/14/25 07:29 Resp 24 H 07/14/25 07:29 BP 130/87 07/14/25 07:38 Pulse Ox 97 07/14/25 07:29 O2 Del Method Room Air 07/14/25 07:29 Const: Other: General: ?Chronically ill-appearing, looks older than stated age ? ?PERRLA, EOMI, MMM, ? Neck: Supple, no LAD ? ?CV: S1-S2 ? ?Resp: ?Rhonchorous bibasilar ? Abd: ?Lower abdomen anasarca ? ?MSK: Swollen bilateral lower extremities with decreased flexion, pitting edema ? Skin: Warm, dry, intact, no jaundice : Swollen penis and testicles ? ?Neuro: ?Alert and oriented x3, , no obvious facial asymmetry noted, cranial nerves 2-12 intact Medications Administered Discontinued Medications Generic Name Dose Route Start Last Admin Trade Name Harryq PRN Reason Stop Dose Admin Furosemide 40 mg 07/14/25 06:51 07/14/25 07:38 Furosemide 40 Mg/4 Ml Vial IVPUSH 07/14/25 06:52 40 mg ONCE ONE Administration Protocol Medical Decision Making Medical Decision Making [facility] Narrative: 6:54 AM 07/14/2025 (Dr. Brendon Moreno): Multiple medical problems, CHF, on furosemide at home, sounds like he has been out of his medication for the past 2 weeks, chest x-ray we will pleural effusion on the right, vascular congestion, he has significant anasarca bilateral lower extremities and groin, we will initiate furosemide and put him on a furosemide drip, otherwise he is nonfebrile, nothing to suspect underlying infectious etiology we will plan for admission, hemodynamically stable Differential Diagnosis Differential Diagnoses: The differential diagnosis associated with the presentation includes (CHF, COPD exacerbation, pneumonia, pneumothorax, ACS, PE,) Admission/Observation Consideration of admission/observation: Escalation of care including admission/observation considered Consult Healthcare Provider Management of the patient was discussed with: Hospitalist Lab Data [facility] Lab Attestation statement: I reviewed the patient's lab results. 07/14/25 04:24 07/14/25 04:24 Labs: Lab Results 07/14/25 07/14/25 Range/Units 04:24 05:10 WBC 8.8 (4.8-10.8) X10*3/uL RBC 4.15 L (4.60-5.80) X10*6/uL Hgb 13.0 L (14.0-18.0) g/dl Hct 39.5 L (42.0-52.0) % MCV 95.2 (80.0-98.0) fL MCH 31.3 (27.0-33.0) pg MCHC 32.9 (31.0-36.0) g/dl RDW 15.0 (11.0-16.0) % Plt Count 286 (160-400) X10*3/uL MPV 10.6 (9.4-12.4) fL Immature Gran % (Auto) 0.1 (0.0-0.4) % Neut % (Auto) 63.9 (45-73) % Lymph % (Auto) 17.0 L (20-40) % [place] % (Auto) 7.9 (2-11) % Eos % (Auto) 10.4 H (0-4) % Baso % (Auto) 0.7 (0-2) % Lymph # (Auto) 1.5 (1.2-4.9) X10*3/uL [place] # (Auto) 0.7 (0.1-1.2) X10*3/uL Eos # (Auto) 0.9 H (0.0-0.4) X10*3/uL Baso # (Auto) 0.1 (0.0-0.2) X10*3/uL Abs Immat Gran (auto) 0.01 (0.00-0.03) X10*3/uL Absolute Neuts (auto) 5.6 (2.0-8.3) x10*3/uL Absolute Nucleated RBC 0.000 (0.0-0.012) X10*3/uL Nucleated RBC % (auto) 0.0 (0.0-0.2) /100WBC PT 14.9 H (10.9-12.4) SEC INR 1.3 H (0.9-1.1) Sodium 140 (135-145) mmol/L Potassium 3.8 (3.3-5.1) mmol/L Chloride 105 (96-108) mmol/L Carbon Dioxide 25 (22-29) mmol/L Anion Gap 14 (12-20) BUN 25 H (9-16) mg/dL Creatinine 1.08 (0.5-1.4) mg/dL Estim Creat Clear Calc TNP Estimated GFR > 60 Random Glucose 143 H (60-115) mg/dL Calcium 8.3 L (8.4-10.2) mg/dL Magnesium 1.9 (1.6-2.6) mg/dL Total Bilirubin 0.5 (0.0-1.0) mg/dL AST 31 (5-37) U/L ALT 34 (0-40) U/L Alkaline Phosphatase 107 (39-117) U/L Troponin I High Sens 19.3 D (<3.5-35.0) ng/L NT-Pro-B Natriuret Pep 7279.9 H (<300) pg/mL Total Protein 5.6 L (6.5-8.0) g/dL Albumin 2.7 L (3.5-5.0) g/dL COVID-19 (REJI) Negative (Negative) COVID-19 Clin Com See Note Influenza Type A (CHRISTIN) Negative (Negative) Influenza Type B (CHRISTIN) Negative (Negative) Influenza A & B Note See Note Independent Interpretation I performed an independent interpretation of an: EKG (107 beats per minute, PVCs, sinus tachycardia,) and Plain X-Ray (Increased vascular congestion with right pleural effusion) Radiology Impression Discussion of test interpretation with radiology: I have reviewed the radiologist's reading. Independent Historian Clinical information obtained from an independent historian. History obtained from or confirmed by: EMS External Record Review External record reviewed: Outpatient record Social Determinants Patient?s care significantly limited by Social Determinants of Health including: Problems related to primary support group Critical Care Time Critical Care Time Critical Care Time: Yes Total Critical Care Time: 35 Attestation: Time is exclusive of separately billable procedures. Time includes: direct patient care, patient reassessment, coordination of patient care, interpretation of data (laboratory data, pulse oximetry, arterial blood gases and chest xrays), review of patient's medical records, medical consultation and documentation of patient care. Procedures excluded from critical care time: central intravenous line placement and electrocardiography. Discharge Plan Discharge Clinical Impression: Anasarca, CHF (congestive heart failure) Prescriptions: No Action Eliquis 5 mg Tablet 5 mg PO BID Qty: 60 2RF Jardiance 10 mg Tablet 10 mg PO DAILY Qty: 30 2RF sacubitril-valsartan [Entresto] 24-26 mg Tablet 1 tab PO BID Qty: 60 2RF Protocol: Hold for SBP< HOLD for SBP < : 90 furosemide [Lasix] 40 mg tablet 40 mg PO DAILY Qty: 30 2RF metoprolol succinate [Toprol XL] 25 mg tablet extended release 24 hr 25 mg PO DAILY Qty: 30 0RF Print Language: Pashto
[2025-07-14 06:11] LABS: COVID-19 Test Negative (Negative); IDNOW Serial# 55D5AD1C; IDNOW Serial# 58CA691E; Influenza B2 Negative (Negative)
--- NOTE | 2025-07-14 06:23 | PC.NURSE ---
triage done under downtime paperwork.
[2025-07-14 06:29] LABS: Alanine Aminotransferase 34 U/L (0-40); Albumin Level 2.7 g/dL (3.5-5.0); Alkaline Phosphatase 107 U/L (39-117); Anion Gap 14 (12-20); Aspartate Amino Transferase 31 U/L (5-37); Blood Urea Nitrogen 25 mg/dL (9-16); Calcium 8.3 mg/dL (8.4-10.2); Carbon Dioxide 25 mmol/L (22-29); Chloride 105 mmol/L (96-108); Estimated Glomerular Filt Rate > 60; Magnesium 1.9 mg/dL (1.6-2.6); Potassium 3.8 mmol/L (3.3-5.1); Sodium 140 mmol/L (135-145); Total Protein 5.6 g/dL (6.5-8.0)
[2025-07-14 06:30] LABS: NT Pro B Type Natriuretic Pept 7279.9 pg/mL (<300); Troponin-I High Sensitivity 19.3 ng/L (<3.5-35.0)
--- NOTE | 2025-07-14 06:53 | ECG_ITS ---
Test Reason : CP Blood Pressure : */* mmHG Vent. Rate : 107 BPM Atrial Rate : 107 BPM P-R Int : 124 ms QRS Dur : 102 ms QT Int : 378 ms P-R-T Axes : * 35 -65 degrees QTcB Int : 504 ms Sinus tachycardia with occasional Premature ventricular complexes and Fusion complexes Anterior infarct , age undetermined Abnormal ECG When compared to the previous EKG of Premature ventricular complexes are now Present Referred By: Brendon Moreno Electronically Signed By: GAIL BANERJEE MD
[2025-07-14] MEDS: Furosemide 40 MG/4 ML VIAL IVPUSH ×2 (07:38→20:43)
--- NOTE | 2025-07-14 07:56 | P.HPHOSP_ITS ---
History of Present Illness Date of Service: 07/14/25 Attending physician on admission: Celina Pickens Chief Complaint: sob This is a 50-year-old male with a history of atrial fibrillation, VFib cardiac arrest status post ICD,HFrEF 10-15% presents to the emergency room with complaints of shortness of breath and chest pain. History is obtained with the assistance of a field mechanic/site lead. Patient reports running out of his medication 2 weeks ago and since that time he has been having increasing dyspnea on exertion and lower extremity edema. He endorses dyspnea, orthopnea, PND. In the emergency department he was noted to have bilateral lower extremity edema, scrotal edema. Chest x-ray showed bilateral pleural effusions, proBNP was elevated at 7279. He was initially tachypneic. He received 40 mg IV push Lasix and was then started on a continuous Lasix drip. Of note, the patient does endorse using crack cocaine and smoking half a pack of cigarettes daily. Patient reports non-radiating chest pain across the front of his chest, worse with deep inspiration as well as palpation and with exertion. Initial troponin 19.3. Prior to running out of his medication he reports feeling well with no sob. He was discharged from [facility] on 05/27 after being treated for CHF and was to follow up with cardiology for outpatient ischemic workup, but it does not appear he has yet had a follow up appointment. Review of Systems 2 Review of Systems: Yes all other systems are reviewed and are negative Constitutional: Constitutional: Denies chills and Denies fever(s) Cardiovascular: Cardiovascular: Reports chest pain, Denies palpitations, Reports dyspnea on exertion, Reports orthopnea and Reports paroxysmal nocturnal dyspnea Respiratory: Respiratory: Reports dyspnea on exertion Endocrine: Endocrine: Denies palpitations [facility] Medical History Atrial fibrillation Paroxysmal A-fib Cardiomyopathy Atrial flutter Defibrillator discharge ICD (implantable cardioverter-defibrillator) malfunction Arrhythmia Systolic heart failure Cardiac defibrillator in place Ventricular fibrillation Polysubstance use disorder Social History Household Members: Family Housing: Apartment Housing Other:: homeless Do you presently have visiting nurse or other home services: No Alcohol intake: never Patient Tobacco Use Status: Current everyday Tobacco user Tobacco use type: Cigarette Cigarette Packs Per Day: 1 Cigarettes Per Day: 7 Years Smoked: 38 Smoked in Last 30 Days: Yes e-Cigarette/Vaping Use: Currently Using Second Hand Smoke Exposure: Yes Use of substances other than those prescribed or required for medical reasons: Yes Substance Use Type: Crack/Cocaine Substance Use Frequency: Occasionally Advance Directives: Yes Advance Directives on File: Yes Advance Directives Date on File: 12/26/23 service: No Meds Allergies Allergy/AdvReac Type Severity Reaction Status Date / Time No Known Allergies Allergy Verified 05/24/25 03:09 Active Medications: Current Medications Furosemide 200 mg/ Sodium (Chloride) 100 mls @ 5 mls/hr IVCONT .Q20H [facility] Physical Exam 2 Vital Signs and Narrative: Vital Signs: Last Vital Signs Temp 98.2 F 07/14/25 07:29 Pulse 88 07/14/25 07:42 Resp 22 H 07/14/25 07:42 BP 130/87 07/14/25 07:42 Pulse Ox 97 07/14/25 07:29 O2 Del Method Room Air 07/14/25 07:29 Const: Other: Ill appearing General: alert and awake Orientation/consciousness: patient oriented x3 Resp: Other: b/l wheeze, rales; increased WOB Effort & Inspection: respiratory distress (mild) Cardio: Jugular venous distension: JVD Rate: regular rate GI: Inspection: No distended Palpation (GI): Soft to palpation and nontender Neuro: General: patient oriented x3, moves all extremities and CN's II-XI intact bilaterally Extrem: Other: significant lower extremity edema to thighs b/l Results Labs 07/14/25 04:24 07/14/25 04:24 Labs: Laboratory Results - last 24 hr 07/14/25 07/14/25 04:24 05:10 MCV 95.2 MCH 31.3 MCHC 32.9 RDW 15.0 Plt Count 286 MPV 10.6 Immature Gran % (Auto) 0.1 Neut % (Auto) 63.9 Lymph % (Auto) 17.0 L [place] % (Auto) 7.9 Eos % (Auto) 10.4 H Baso % (Auto) 0.7 Lymph # (Auto) 1.5 [place] # (Auto) 0.7 Eos # (Auto) 0.9 H Baso # (Auto) 0.1 Abs Immat Gran (auto) 0.01 Absolute Neuts (auto) 5.6 Absolute Nucleated RBC 0.000 Nucleated RBC % (auto) 0.0 PT 14.9 H INR 1.3 H Anion Gap 14 Estim Creat Clear Calc TNP Estimated GFR > 60 Random Glucose 143 H Calcium 8.3 L Magnesium 1.9 Total Bilirubin 0.5 AST 31 ALT 34 Alkaline Phosphatase 107 Troponin I High Sens 19.3 D NT-Pro-B Natriuret Pep 7279.9 H Total Protein 5.6 L Albumin 2.7 L COVID-19 (REJI) Negative COVID-19 Clin Com See Note Influenza Type A (CHRISTIN) Negative Influenza Type B (CHRISTIN) Negative Influenza A & B Note See Note Assessment and Plan (1) CHF (congestive heart failure): Status: Acute Plan This is a 50 year old male with history of VFib/cardiac arrest s/p AICD, afib, COPD, HFrEF 10-15%, cocaine use who presents to the ED with SOB found to have CHF Acute on chronic combined systolic and diastolic CHF due to medication non-compliance (ran out of meds, couldn't get refill) as well as ongoing cocaine use +PND, orthopnea, tachypnea; pleural effusions on imaging, elevated pro-BNP; +JVD and lower extremity edema last echo from 05/2025 with ef 10-15% with grade 3 diastolic dysfunction, severe global hypokinesis continue IV lasix troponin flat follow Is&Os, monitor on tele, monitor electrolytes cardiology consult - avoid BB at this time due to active cocaine use, restart entresto and jardiance paroxysmal atrial fibrillation hold BB for acute cocaine use continue AC with Eliquis chest pain trops flat monitoring on tele cardiology consult copd breathing treatments as needed h/o vfib/cardiac arrest s/p AICD tobacco dependence Smoking cessation advised NRT substance use disorder endorses using crack cocaine tox screen pending addiction medicine consult dvt ppx - Eliquis Patient will likely require two midnight stay in the hospital for management of acute decompensated heart failure requiring continuous Lasix drip, specialist evaluation and close cardiac monitoring Quality Stroke Does the patient have a stroke diagnosis?: No VTE Prior VTE?: No VTE Risk Level:: Medical - moderate - high VTE Device Contraindication: N/A - Device Ordered VTE Drug Contraindication: N/A - Med Ordered
[2025-07-14] MEDS: Furosemide 200 MG in 0.9 % Sodium Chloride 80 ML IVCONT (08:01)
--- NOTE | 2025-07-14 09:02 | PM.CNCAR ---
History of Present Illness History of Present Illness Date of Service: 07/14/25 Requesting physician: Marilia Mason Consult reason: congestive heart failure Chief complaint: CHF Narrative: I was consulted to see Laron in cardiology consultation today for decompensated congestive heart failure. Patient is 50-year-old male with severe cardiomyopathy last echocardiogram admitted last time showing LVEF of 10-15% with history of paroxysmal atrial fibrillation as well as stroke and active cocaine use. Unfortunately patient is noncompliant with medication despite intensive education last admission about importance of taking medications. He also had noncompliance with follow up in the clinic. Patient said he ran out of medicines few weeks ago and says that nobody filled his medications for him. He then started having progressive symptoms of leg swelling with difficulty in walking and ambulating as he could not bend his legs associated with worsening shortness of breath. He came to the hospital and noted to be in decompensated congestive heart failure with NT pro BNP at 7279. Patient has been admitted for decompensated congestive heart failure with diuretic regimen. Patient noted to be tachycardic with sinus tachycardia which is not unusual in decompensated congestive heart failure. Renal function stable. Review of Systems Constitutional: Constitutional: Reports no additional constitutional complaints Eyes: Eyes: Reports no additional eye complaints Cardiovascular: Cardiovascular: Reports leg edema, Reports dyspnea on exertion and Reports orthopnea Respiratory: Respiratory: Reports dyspnea on exertion and Denies wheezing Gastrointestinal: Gastrointestinal: Reports no additional gastrointestinal complaints Genitourinary: Genitourinary: Reports no additional male genitourinary complaints Musculoskeletal: Musculoskeletal: Reports no additional musculoskeletal complaints Integumentary/Breasts: Skin/Breast: Reports system reviewed and no additional complaints, except as docu Neurologic: Reports system reviewed and no additional complaints, except as documented Psychiatric: Psychiatric: Reports no additional psychiatric complaints Allergic/Immunologic: Allergic/Immunologic: Denies wheezing PMFSH Past Medical History Medical History Atrial fibrillation Paroxysmal A-fib Cardiomyopathy Atrial flutter Defibrillator discharge ICD (implantable cardioverter-defibrillator) malfunction Arrhythmia Systolic heart failure Cardiac defibrillator in place Ventricular fibrillation Polysubstance use disorder Social History Social History Household Members: Family Housing: Apartment Housing Other:: homeless Do you presently have visiting nurse or other home services: No Alcohol intake: never Patient Tobacco Use Status: Current everyday Tobacco user Tobacco use type: Cigarette Cigarette Packs Per Day: 1 Cigarettes Per Day: 7 Years Smoked: 38 Smoked in Last 30 Days: Yes e-Cigarette/Vaping Use: Currently Using Second Hand Smoke Exposure: Yes Use of substances other than those prescribed or required for medical reasons: Yes Substance Use Type: Crack/Cocaine Substance Use Frequency: Occasionally Advance Directives: Yes Advance Directives on File: Yes Advance Directives Date on File: 12/26/23 service: No Meds Allergies Allergy/AdvReac Type Severity Reaction Status Date / Time No Known Allergies Allergy Verified 05/24/25 03:09 Active Medications: Current Medications Acetaminophen (Acetaminophen 325 Mg Tablet) 650 mg PO Q6H PRN PRN Reason: Pain, Mild 1-3,fever,headache Calcium Carbonate (Calcium Carbonate 750 Mg Tab.Chew) 750 mg PO Q4H PRN PRN Reason: Heartburn Furosemide 200 mg/ Sodium (Chloride) 100 mls @ 5 mls/hr IVCONT .Q20H [facility] Last Admin: 07/14/25 08:01 Dose: 10 mg/hr, 5 mls/hr Magnesium Hydroxide (Milk Of Magnesia 30 Ml Oral.Susp) 30 ml PO DAILY PRN PRN Reason: Constipation Melatonin (Melatonin 3 Mg Tablet) 6 mg PO BEDTIME PRN PRN Reason: Insomnia Sodium Chloride (0.9 % Sodium Chloride Flush 3 Ml Syringe) 3 ml IVFLUSH QSHIFT [facility] Physical Exam Vital Signs: Vital Signs: Last Vital Signs Temp 98.2 F 07/14/25 07:29 Pulse 88 07/14/25 07:42 Resp 22 H 07/14/25 07:42 BP 131/93 H 07/14/25 08:01 Pulse Ox 97 07/14/25 07:29 O2 Del Method Room Air 07/14/25 07:29 Const: General: cooperative, comfortable, alert, awake and in distress mild and respiratory Nutritional Appearance: overweight Orientation/consciousness: patient oriented x3 HEENT: Head: Yes normocephalic and Yes atraumatic Neck: Neck: Yes trachea midline, Yes supple and Yes JVD Resp: Effort & Inspection: normal respiratory effort Auscultation: rales and diminished lung sounds Cardio: Jugular venous distension: JVD Palpation: abnormal PMI displaced PMI Rate: tachycardic Rhythm: abnormal rhythm with ectopic beats Heart sounds: S1 normal heart sound present, S2 normal heart sound present, no click, Gallop heart sound present S3 gallop, no murmurs and no rubs GI: Auscultation: normal bowel sounds Skin: General skin exam: no rashes or lesions noted Neuro: General: patient oriented x3 and no focal motor deficits Extrem: General: No clubbing, No cyanosis and Yes edema Objective Labs and Meds 07/14/25 04:24 07/14/25 04:24 Lab results: Laboratory Results - last 24 hr 07/14/25 07/14/25 04:24 05:10 WBC 8.8 RBC 4.15 L Hgb 13.0 L Hct 39.5 L MCV 95.2 MCH 31.3 MCHC 32.9 RDW 15.0 Plt Count 286 MPV 10.6 Immature Gran % (Auto) 0.1 Neut % (Auto) 63.9 Lymph % (Auto) 17.0 L [place] % (Auto) 7.9 Eos % (Auto) 10.4 H Baso % (Auto) 0.7 Lymph # (Auto) 1.5 [place] # (Auto) 0.7 Eos # (Auto) 0.9 H Baso # (Auto) 0.1 Abs Immat Gran (auto) 0.01 Absolute Neuts (auto) 5.6 Absolute Nucleated RBC 0.000 Nucleated RBC % (auto) 0.0 PT 14.9 H INR 1.3 H Sodium 140 Potassium 3.8 Chloride 105 Carbon Dioxide 25 Anion Gap 14 BUN 25 H Creatinine 1.08 Estim Creat Clear Calc TNP Estimated GFR > 60 Random Glucose 143 H Calcium 8.3 L Magnesium 1.9 Total Bilirubin 0.5 AST 31 ALT 34 Alkaline Phosphatase 107 Troponin I High Sens 19.3 D NT-Pro-B Natriuret Pep 7279.9 H Total Protein 5.6 L Albumin 2.7 L COVID-19 (REJI) Negative COVID-19 Clin Com See Note Influenza Type A (CHRISTIN) Negative Influenza Type B (CHRISTIN) Negative Influenza A & B Note See Note Assessment and Plan (1) Decompensated heart failure with reduced ejection fraction (HFrEF): Status: Acute Decompensated systolic congestive heart failure in this middle-aged man with severe LV systolic dysfunction secondary to noncompliance to medications as well as follow up and continued use of cocaine. Unfortunately this will lead to a poor long-term outcome and this was discussed with him. At this point time I would continue with diuresis with Lasix 40 mg b.i.d. with strict intake and output chart. Continue monitor electrolytes and renal function as well as BNP. Would hold off on any beta-poppy therapy given his active cocaine use. Would restart Entresto at 24-26mg b.i.d. as well as Jardiance 10 mg daily. Full disclosure cardiac telemetry. I think patient needs more intense care management as well as education of his overall condition as he seems to have not complete insight into his medical illness. Will continue to follow with you Procedures Date of Service Date of Service: 07/14/25
--- NOTE | 2025-07-14 09:21 | PHA.MEDREC ---
Addendum entered by Modesto Ansari PharmD 07/14/25 09:28: reviewed Original Note: Pharmacy Consult ? Medication Reconciliation Pharmacy has completed the medication reconciliation. 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 Pt states he ran out of his medication about 2 weeks ago and he states he is taking an antibiotic but has no information on how he takes it or where he got it except he stated Im taking an antibiotic I got from the store and it was not prescribed.
[2025-07-14 09:28] LABS: Troponin-I High Sensitivity 19.9 ng/L (<3.5-35.0)
[2025-07-14] MEDS: Nicotine 14 MG PATCH.TD24 TRANSDERMA (09:28)
[2025-07-14 11:27] LABS: Appearance Urine Clear; Glucose Urine UA Negative (Negative); PH 8.0 (5.0-9.0); Specific Gravity - Urine <= 1.005 (1.005-1.025)
--- NOTE | 2025-07-14 11:35 | HO.NURTONUR ---
50 yr old male admitted for acute CHF. Pt comes to ED with complaints for chest pain, SOB, and swelling to bilat lower extremities. He reports he has been out of him medications and unable to get refills by his providers. A&Ox3 VSS overall with some intermittent tachycardia noted. BNP 7279.9; Trop 19.3 in ED Breaths and speech are unlabored. Skin is warm and dry Pt seen by Cardiology in ED. Pt given IVP lasix and started on Lasix drip initially in ED--drip later d/c'd. Bilat IV access to upper extremities. Low sodium diet Urine output monitoring. Med rec completed by Pharmacy. Pt sleeps the majority of the morning. He is observed eating a sandwich and juice, then falls back asleep. Pt awaiting inpatient bed assignment.
[2025-07-14 11:43] LABS: Cannabinoid Screen Urine Not Detected (Not Detect)
[2025-07-14] MEDS: Sacubitril/Valsartan 24/26 1 TAB TABLET PO ×2 (11:48→22:06)
[2025-07-14] MEDS: Albuterol/Iprat 2.5/0.5MG 3 ML AMPUL.NEB INHALE ×2 (15:23→18:58)
[2025-07-14] MEDS: 0.9 % Sodium Chloride Flush 3 ML SYRINGE IVFLUSH (18:30)
[2025-07-15] VITALS (8 sets, daily range): BP systolic 107–135; BP diastolic 58–82; PULSE 65–115; RESP 15–19; TEMP 36.4–36.7; O2SAT 92–99
[2025-07-15] MEDS: 0.9 % Sodium Chloride Flush 3 ML SYRINGE IVFLUSH ×3 (00:43→20:19)
[2025-07-15 07:32] LABS: Hematocrit 43.7 % (42.0-52.0); Hemoglobin 13.7 g/dl (14.0-18.0); Mean Corpuscular HGB Conc 31.4 g/dl (31.0-36.0); Mean Corpuscular Hemoglobin 30.4 pg (27.0-33.0); Mean Corpuscular Volume 97.1 fL (80.0-98.0); NRBC Abs Auto 0.000 X10*3/uL (0.0-0.012); NRBC Pct Auto 0.0 /100WBC (0.0-0.2); Platelet Count 269 X10*3/uL (160-400); Red Blood Count 4.50 X10*6/uL (4.60-5.80); White Blood Count 9.5 X10*3/uL (4.8-10.8)
[2025-07-15 07:46] LABS: Anion Gap 9 (12-20); Blood Urea Nitrogen 20 mg/dL (9-16); Calcium 8.1 mg/dL (8.4-10.2); Carbon Dioxide 28 mmol/L (22-29); Chloride 110 mmol/L (96-108); Creatinine Clr Calc Pharmacy 93.1; Estimated Glomerular Filt Rate > 60; Potassium 3.8 mmol/L (3.3-5.1); Sodium 143 mmol/L (135-145)
[2025-07-15] MEDS: Albuterol/Iprat 2.5/0.5MG 3 ML AMPUL.NEB INHALE ×2 (07:50→15:44)
[2025-07-15 07:51] LABS: NT Pro B Type Natriuretic Pept 5385.1 pg/mL (<300)
[2025-07-15] MEDS: Furosemide 40 MG/4 ML VIAL IVPUSH ×2 (09:04→17:57)
[2025-07-15] MEDS: Sacubitril/Valsartan 24/26 1 TAB TABLET PO (09:05)
--- NOTE | 2025-07-15 11:06 | HO.ADDICTCON ---
History of Present Illness Date of Service: 07/15/2025 Chief Complaint: CHF Reason for Consult: cocaine use Sources of Information: patient interviewed and chart reviewed HPI Narrative: Patient is a 50 year old English speaking male with medical history that includes, CHF, COPD, vfib s/p AICD, TONEY and AFIB Present[place] [facility] [place]/o [place]B and lower extremity edema--admitted with acute CHF Consult requested due to ongoing substance use. Patient well known to t/w via previous medical admissions, most recently 05/2025. Patient seen in room 477. He is awake, alert, engaged in interview. Discussed current cocaine use. He states that he has been working to cut down--smoking 2-3 bags several days per week. it's not easy to just stop . t/w provided validation and reflected on progress patient has made over the years with his substance use- notably that he has been abstaining from opioid use for over one year. Patient aware that ongoing cocaine use is impacting his cardiac issues and verbalized wanting to stop cocaine use all together. He denies any history of medication for cocaine use, but is open to it. Discussed [facility] clinic in [facility], that specializes in stimulant use, however patient does not wish to go that far. He denies any withdrawal sx. Denies issues with sleep or anxiety. Overall appearing comfortable, no restlessness noted. Labs reviewed. Hepatitis and HIV screens 05/2025-negative. Medical Evaluation Reviewed: Yes Review of Systems Constitutional: Reports as per HPI and Reports no additional constitutional complaints Diagnostics Vital Signs (24Hr): Vital Signs - 24 hr 07/14/25 11:48 07/14/25 12:03 07/14/25 14:10 Temperature Pulse Rate 88 88 Respiratory Rate 15 21 H Blood Pressure 102/78 102/8 L 111/81 Pulse Oximetry 94 95 Oxygen Delivery Method Room Air Room Air 07/14/25 15:24 07/14/25 15:50 07/14/25 18:23 Temperature 97.7 F Pulse Rate 97 88 102 H Respiratory Rate 20 24 H 22 H Blood Pressure 108/87 104/52 L Pulse Oximetry 94 93 Oxygen Delivery Method Room Air Room Air 07/14/25 18:58 07/14/25 20:43 07/14/25 20:48 Temperature Pulse Rate 117 H 108 H Respiratory Rate 18 21 H Blood Pressure 102/75 117/75 Pulse Oximetry 96 Oxygen Delivery Method Room Air 07/14/25 20:55 07/14/25 22:00 07/14/25 22:06 Temperature 98.0 F 97.6 F Pulse Rate 124 H 105 H Respiratory Rate 25 H 16 Blood Pressure 123/83 139/79 101/63 Pulse Oximetry 97 96 Oxygen Delivery Method Room Air Room Air 07/15/25 03:12 07/15/25 07:14 07/15/25 07:53 Temperature 97.9 F 97.6 F Pulse Rate 83 92 98 Respiratory Rate 18 18 15 Blood Pressure 112/72 131/82 Pulse Oximetry 96 97 Oxygen Delivery Method Room Air Room Air BMI result Body Mass Index 29.4 Labs 07/15/25 07:17 07/15/25 07:17 Labs: Laboratory Results - last 48 hr 07/14/25 07/14/25 07/14/25 04:24 05:10 08:45 WBC 8.8 RBC 4.15 L Hgb 13.0 L Hct 39.5 L MCV 95.2 MCH 31.3 MCHC 32.9 RDW 15.0 Plt Count 286 MPV 10.6 Immature Gran % (Auto) 0.1 Neut % (Auto) 63.9 Lymph % (Auto) 17.0 L Hartley % (Auto) 7.9 Eos % (Auto) 10.4 H Baso % (Auto) 0.7 Lymph # (Auto) 1.5 Hartley # (Auto) 0.7 Eos # (Auto) 0.9 H Baso # (Auto) 0.1 Abs Immat Gran (auto) 0.01 Absolute Neuts (auto) 5.6 Absolute Nucleated RBC 0.000 Nucleated RBC % (auto) 0.0 PT 14.9 H INR 1.3 H Sodium 140 Potassium 3.8 Chloride 105 Carbon Dioxide 25 Anion Gap 14 BUN 25 H Creatinine 1.08 Estim Creat Clear Calc TNP Estimated GFR > 60 Random Glucose 143 H Calcium 8.3 L Magnesium 1.9 Total Bilirubin 0.5 AST 31 ALT 34 Alkaline Phosphatase 107 Troponin I High Sens 19.3 D 19.9 NT-Pro-B Natriuret Pep 7279.9 H Total Protein 5.6 L Albumin 2.7 L Urine Color Urine Appearance Urine pH Ur Specific [place] Urine Protein Urine Glucose (UA) Urine Ketones Urine Blood Urine Nitrite Ur Leukocyte Esterase Urine RBC Urine WBC Ur Squamous Epith Cells Urine Bacteria Hyaline Casts Urine Opiates Screen Ur Buprenorphine Scrn Ur Oxycodone Screen Urine Methadone Screen Urine Fentanyl Screen Ur Barbiturates Screen Ur Phencyclidine Scrn Ur Amphetamines Screen U Benzodiazepines Scrn Urine Cocaine Screen U Marijuana (THC) Screen COVID-19 (REJI) Negative COVID-19 Clin Com See Note Influenza Type A (CHRISTIN) Negative Influenza Type B (CHRISTIN) Negative Influenza A & B Note See Note 07/14/25 07/15/25 11:21 07:17 WBC 9.5 RBC 4.50 L Hgb 13.7 L Hct 43.7 MCV 97.1 MCH 30.4 MCHC 31.4 RDW 14.9 Plt Count 269 MPV 10.2 Immature Gran % (Auto) Neut % (Auto) Lymph % (Auto) Hartley % (Auto) Eos % (Auto) Baso % (Auto) Lymph # (Auto) Hartley # (Auto) Eos # (Auto) Baso # (Auto) Abs Immat Gran (auto) Absolute Neuts (auto) Absolute Nucleated RBC 0.000 Nucleated RBC % (auto) 0.0 PT INR Sodium 143 Potassium 3.8 Chloride 110 H Carbon Dioxide 28 Anion Gap 9 L BUN 20 H Creatinine 1.03 Estim Creat Clear Calc 93.1 Estimated GFR > 60 Random Glucose 113 Calcium 8.1 L Magnesium Total Bilirubin AST ALT Alkaline Phosphatase Troponin I High Sens NT-Pro-B Natriuret Pep 5385.1 H Total Protein Albumin Urine Color Yellow Urine Appearance Clear Urine pH 8.0 Ur Specific [place] <= 1.005 Urine Protein Negative Urine Glucose (UA) Negative Urine Ketones Negative Urine Blood Negative Urine Nitrite Negative Ur Leukocyte Esterase Negative Urine RBC 0-2 Urine WBC 0-5 Ur Squamous Epith Cells 0-2 Urine Bacteria None Seen Hyaline Casts 0-2 Urine Opiates Screen Not Detected Ur Buprenorphine Scrn Not Detected Ur Oxycodone Screen Not Detected Urine Methadone Screen Not Detected Urine Fentanyl Screen Not Detected Ur Barbiturates Screen Not Detected Ur Phencyclidine Scrn Not Detected Ur Amphetamines Screen Not Detected U Benzodiazepines Scrn Not Detected Urine Cocaine Screen POSITIVE H U Marijuana (THC) Screen Not Detected COVID-19 (REJI) COVID-19 Clin Com Influenza Type A (CHRISTIN) Influenza Type B (CHRISTIN) Influenza A & B Note Mental Status Exam Mental Status Exam Level of Consciousness: Awake, Appropriate and Alert Patient Behavior: Appropriate and Cooperative Mood Description: Calm Affect Description: Calm Speech Pattern: Clear Hallucinations: None Thought Process: Intact Thought Content: positive for Intact Judgement: Good Medications Medications Current Medications Acetaminophen (Acetaminophen 325 Mg Tablet) 650 mg PO Q6H PRN PRN Reason: Pain, Mild 1-3,fever,headache Albuterol/Ipratropium (Albuterol/Iprat 2.5/0.5mg 3 Ml Ampul.Neb) 3 ml INHALE RQ6H WHILE AWAKE [facility] Last Admin: 07/15/25 07:50 Dose: 3 ml Albuterol/Ipratropium (Albuterol/Iprat 2.5/0.5mg 3 Ml Ampul.Neb) 3 ml INHALE RQ4H WHILE AWAKE PRN PRN Reason: shortness of breath/wheezing Apixaban (Apixaban 5 Mg Tablet) 5 mg PO BID [facility] Last Admin: 07/15/25 09:05 Dose: 5 mg Calcium Carbonate (Calcium Carbonate 750 Mg Tab.Chew) 750 mg PO Q4H PRN PRN Reason: Heartburn Empagliflozin (Empagliflozin 10 Mg Tablet) 10 mg PO DAILY [facility] Last Admin: 07/15/25 09:05 Dose: 10 mg Furosemide (Furosemide 40 Mg/4 Ml Vial) 40 mg IVPUSH BID@0900,1800 [facility]; Protocol Last Admin: 07/15/25 09:04 Dose: 40 mg Magnesium Hydroxide (Milk Of Magnesia 30 Ml Oral.Susp) 30 ml PO DAILY PRN PRN Reason: Constipation Melatonin (Melatonin 3 Mg Tablet) 6 mg PO BEDTIME PRN PRN Reason: Insomnia Nicotine (Nicotine 14 Mg Patch.Td24) 14 mg TRANSDERMA DAILY [facility] Last Admin: 07/15/25 09:09 Dose: Not Given Sacubitril/Valsartan (Sacubitril/Valsartan 1 Tab Tablet) 1 tab PO BID [facility]; Protocol Last Admin: 07/15/25 09:05 Dose: 1 tab Sodium Chloride (0.9 % Sodium Chloride Flush 3 Ml Syringe) 3 ml IVFLUSH QSHIFT [facility] Last Admin: 07/15/25 09:04 Dose: 3 ml Allergies Allergies Allergy/AdvReac Type Severity Reaction Status Date / Time No Known Allergies Allergy Verified 05/24/25 03:09 Assessment & Plan Assessment & Plan (1) Cocaine use disorder: Status: Inactive Code(s): F14.10 - Cocaine abuse, uncomplicated Assessment and Plan: agreeable to topiramate 25mg BID to start. Discussed dosing, side effects and goals of medication. Dose titration to occur outpatient. 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 PMFSH Past Medical History Medical History Atrial fibrillation Paroxysmal A-fib Cardiomyopathy Atrial flutter Defibrillator discharge ICD (implantable cardioverter-defibrillator) malfunction Arrhythmia Systolic heart failure Cardiac defibrillator in place Ventricular fibrillation Polysubstance use disorder Social History Social History Household Members: Family Housing: Apartment Housing Other:: homeless Do you presently have visiting nurse or other home services: No Alcohol intake: never Patient Tobacco Use Status: Current everyday Tobacco user Tobacco use type: Cigarette Cigarette Packs Per Day: 1 Cigarettes Per Day: 7 Years Smoked: 38 e-Cigarette/Vaping Use: Currently Using Second Hand Smoke Exposure: Yes Substance Use Type: Crack/Cocaine Advance Directives Date on File: 12/26/23 service: No
--- NOTE | 2025-07-15 11:39 | PM.PNCARD ---
Subjective Subjective Date of Service: 07/15/25 Principal diagnosis: Decompensated congestive heart failure noncompliance Interval history: Patient diuresing well has diuresed about 2 L since yesterday. Tolerating his medications. Heart rate is somewhat improved. Denies worsening symptoms. Review of Systems Constitutional: Reports no additional constitutional complaints Cardiovascular: Denies chest pain, Denies rapid heart rate, Reports leg edema, Denies Loss of Consciousness and Reports dyspnea Respiratory: Reports no additional respiratory complaints and Reports dyspnea Genitourinary: Reports no additional male genitourinary complaints Skin/Breast: Reports system reviewed and no additional complaints, except as docu Reports system reviewed and no additional complaints, except as documented Psychiatric: Reports no additional psychiatric complaints Endocrine: Reports no additional endocrine complaints Physical Exam Vital Signs: Last Vital Signs Temp 97.6 F 07/15/25 07:14 Pulse 98 07/15/25 07:53 Resp 15 07/15/25 07:53 BP 131/82 07/15/25 07:14 Pulse Ox 97 07/15/25 07:14 O2 Del Method Room Air 07/15/25 07:14 BMI result Body Mass Index 29.4 Const General: cooperative, comfortable, alert, awake and in distress mild and respiratory Nutritional Appearance: overweight Orientation/consciousness: patient oriented x3 HEENT Head: Yes normocephalic and Yes atraumatic Neck Neck: Yes trachea midline, Yes supple and Yes JVD Resp Effort & Inspection: normal respiratory effort Auscultation: rales and diminished lung sounds Cardio Jugular venous distension: JVD Palpation: abnormal PMI displaced PMI Rate: tachycardic Rhythm: abnormal rhythm with ectopic beats Heart sounds: S1 normal heart sound present, S2 normal heart sound present, no click, Gallop heart sound present S3 gallop, no murmurs and no rubs GI Auscultation: normal bowel sounds Skin General skin exam: no rashes or lesions noted Neuro General: patient oriented x3 and no focal motor deficits Extrem General: No clubbing, No cyanosis and Yes edema Objective Labs and Meds 07/15/25 07:17 07/15/25 07:17 Lab results: Laboratory Results - last 24 hr 07/14/25 07/15/25 11:21 07:17 WBC 9.5 RBC 4.50 L Hgb 13.7 L Hct 43.7 MCV 97.1 MCH 30.4 MCHC 31.4 RDW 14.9 Plt Count 269 MPV 10.2 Absolute Nucleated RBC 0.000 Nucleated RBC % (auto) 0.0 Sodium 143 Potassium 3.8 Chloride 110 H Carbon Dioxide 28 Anion Gap 9 L BUN 20 H Creatinine 1.03 Estim Creat Clear Calc 93.1 Estimated GFR > 60 Random Glucose 113 Calcium 8.1 L NT-Pro-B Natriuret Pep 5385.1 H Urine Opiates Screen Not Detected Ur Buprenorphine Scrn Not Detected Ur Oxycodone Screen Not Detected Urine Methadone Screen Not Detected Urine Fentanyl Screen Not Detected Ur Barbiturates Screen Not Detected Ur Phencyclidine Scrn Not Detected Ur Amphetamines Screen Not Detected U Benzodiazepines Scrn Not Detected Urine Cocaine Screen POSITIVE H U Marijuana (THC) Screen Not Detected Progress Note: A&P Assessment and plan (1) Decompensated heart failure with reduced ejection fraction (HFrEF): Status: Acute Assessment and Plan: Decompensated congestive heart failure in his middle-aged man due to noncompliance. Doing better with diuresis. Still fluid overloaded. Continue IV diuresis. Strict intake and output chart needs to be pursued. Social service input. Continue Entresto as well as Jardiance therapy. Maximize Entresto. Once he is clinically more euvolemic will reintroduce beta-poppy therapy and give some time for cocaine to be out of the system as well. Importance of medical therapy was discussed with him. Will follow with you Time Spent With Patient Time: Total time managing care of this patient today ____ minutes. Progress Note: Quality Stroke Does the patient have a stroke diagnosis?: No Procedures Date of Service Date of Service: 07/15/25
--- NOTE | 2025-07-15 12:02 | HO.PM.IMPN ---
Subjective Subjective Date of Service: 07/15/25 Interval History: f/u on heart failure exacerbation and non-compliance with meds Overall heading in the right direction, yet remains fluid overloaded Physical Exam Vital Signs: Vital Signs: Last Vital Signs Temp 98.0 F 07/15/25 11:41 Pulse 65 07/15/25 11:41 Resp 19 07/15/25 11:41 BP 131/76 07/15/25 11:41 Pulse Ox 99 07/15/25 11:41 O2 Del Method Room Air 07/15/25 11:41 BMI result Body Mass Index 29.4 Const: Other: General: AO X 3, no acute distress Resp: CTA bilateral CVS: S1,S2,RRR, 1+ edema GI: +BS, NT, no distention Skin: No rash Neuro: motor grossly intact Psych: appropriate affect Objective Data Active Medications Acetaminophen (Acetaminophen 325 Mg Tablet) 650 mg PO Q6H PRN PRN Reason: Pain, Mild 1-3,fever,headache Albuterol/Ipratropium (Albuterol/Iprat 2.5/0.5mg 3 Ml Ampul.Neb) 3 ml INHALE RQ6H WHILE AWAKE [facility] Last Admin: 07/15/25 07:50 Dose: 3 ml Documented By: JESSICA Albuterol/Ipratropium (Albuterol/Iprat 2.5/0.5mg 3 Ml Ampul.Neb) 3 ml INHALE RQ4H WHILE AWAKE PRN PRN Reason: shortness of breath/wheezing Apixaban (Apixaban 5 Mg Tablet) 5 mg PO BID [facility] Last Admin: 07/15/25 09:05 Dose: 5 mg Documented By: ALMAZ Calcium Carbonate (Calcium Carbonate 750 Mg Tab.Chew) 750 mg PO Q4H PRN PRN Reason: Heartburn Empagliflozin (Empagliflozin 10 Mg Tablet) 10 mg PO DAILY [facility] Last Admin: 07/15/25 09:05 Dose: 10 mg Documented By: ALMAZ Furosemide (Furosemide 40 Mg/4 Ml Vial) 40 mg IVPUSH BID@0900,1800 [facility]; Protocol Last Admin: 07/15/25 09:04 Dose: 40 mg Documented By: ALMAZ Magnesium Hydroxide (Milk Of Magnesia 30 Ml Oral.Susp) 30 ml PO DAILY PRN PRN Reason: Constipation Melatonin (Melatonin 3 Mg Tablet) 6 mg PO BEDTIME PRN PRN Reason: Insomnia Nicotine (Nicotine 14 Mg Patch.Td24) 14 mg TRANSDERMA DAILY [facility] Last Admin: 07/15/25 09:09 Dose: Not Given Documented By: ALMAZ Non-Admin Reason: Patient Refused Sacubitril/Valsartan (Sacubitril/Valsartan 1 Tab Tablet) 1 tab PO BID [facility]; Protocol Last Admin: 07/15/25 09:05 Dose: 1 tab Documented By: ALMAZ Sodium Chloride (0.9 % Sodium Chloride Flush 3 Ml Syringe) 3 ml IVFLUSH QSHIFT [facility] Last Admin: 07/15/25 09:04 Dose: 3 ml Documented By: ALMAZ Topiramate (Topiramate 25 Mg Tablet) 25 mg PO BID [facility] Last Admin: 07/15/25 11:44 Dose: 25 mg Documented By: ALMAZ Labs 07/15/25 07:17 07/15/25 07:17 Labs: Laboratory Results - last 24 hr 07/15/25 07:17 MCV 97.1 MCH 30.4 MCHC 31.4 RDW 14.9 Plt Count 269 MPV 10.2 Absolute Nucleated RBC 0.000 Nucleated RBC % (auto) 0.0 Anion Gap 9 L Estim Creat Clear Calc 93.1 Estimated GFR > 60 Random Glucose 113 Calcium 8.1 L NT-Pro-B Natriuret Pep 5385.1 H Assessment and Plan (1) Decompensated heart failure with reduced ejection fraction (HFrEF): Status: Acute Plan This is a 50 year old male with history of VFib/cardiac arrest s/p AICD, afib, COPD, HFrEF 10-15%, cocaine use who presents to the ED with SOB found to have CHF Acute on chronic combined systolic and diastolic CHF due to medication non-compliance (ran out of meds, couldn't get refill) as well as ongoing cocaine use +PND, orthopnea, tachypnea; pleural effusions on imaging, elevated pro-BNP; +JVD and lower extremity edema last echo from 05/2025 with ef 10-15% with grade 3 diastolic dysfunction, severe global hypokinesis negative 2288 overnight continue IV lasix troponin flat follow Is&Os, monitor on tele, monitor electrolytes cardiology consult - avoid BB at this time due to active cocaine use, restart entresto and titrate up and jardiance, will add BB later paroxysmal atrial fibrillation hold BB for acute cocaine use continue AC with Eliquis chest pain trops flat monitoring on tele cardiology consult copd breathing treatments as needed h/o vfib/cardiac arrest s/p AICD tobacco dependence Smoking cessation advised NRT substance use disorder endorses using crack cocaine tox screen pending addiction medicine consult dvt ppx - Eliquis Patient will likely require two midnight stay in the hospital for management of acute decompensated heart failure requiring continuous Lasix drip, specialist evaluation and close cardiac monitoring Quality Stroke Does the patient have a stroke diagnosis?: No VTE Prior VTE?: No VTE Risk Level:: Medical - moderate - high VTE Device Contraindication: N/A - Device Ordered VTE Drug Contraindication: N/A - Med Ordered
--- NOTE | 2025-07-15 15:30 | MHC.CM.PN ---
Addendum entered by Keysha Juarez 07/15/25 15:35: Pt. said that the HCP that is on file: Olga Lidia is no longer his HCP, he declined to complete a new one. Original Note: Pt. is living with his cousin, he does not have a PCP but said he goes to [facility] for medical care. He does not use home health services or DME. He will need assistance with transport home at DC, DCP: home, self care. CM to follow for DC needs.
--- NOTE | 2025-07-15 16:22 | ECG_ITS ---
Test Reason : cp Blood Pressure : */* mmHG Vent. Rate : 117 BPM Atrial Rate : 117 BPM P-R Int : 120 ms QRS Dur : 100 ms QT Int : 358 ms P-R-T Axes : * 28 245 degrees QTcB Int : 499 ms Sinus tachycardia with occasional Premature ventricular complexes and Fusion complexes Minimal voltage criteria for LVH, may be normal variant ( Shayan product ) Nonspecific T wave abnormality Abnormal ECG When compared with ECG of 14-Jul-2025 04:19, No significant change was found Referred By: David Grossman Electronically Signed By: GAIL BANERJEE MD
[2025-07-15] MEDS: Sacubitril/Valsartan 49/51 1 TAB TABLET PO (20:18)
[2025-07-16] VITALS (11 sets, daily range): BP systolic 104–122; BP diastolic 67–87; PULSE 56–150; RESP 14–18; TEMP 36.6–37.3; O2SAT 94–99
--- NOTE | 2025-07-16 | ECG_ITS ---
Test Reason : tachycardia Blood Pressure : */* mmHG Vent. Rate : 116 BPM Atrial Rate : 116 BPM P-R Int : 126 ms QRS Dur : 102 ms QT Int : 350 ms P-R-T Axes : 156 0 173 degrees QTcB Int : 486 ms Normal sinus rhythm with Unusual P axis, possible ectopic atrial tachycardia with occasional Premature ventricular complexes Minimal voltage criteria for LVH, may be normal variant ( Shayan product ) T wave abnormality, consider lateral ischemia Abnormal ECG When compared with ECG of 15-Jul-2025 16:22, Ectopic atrial rhythm has replaced Sinus rhythm Referred By: David Grossman Electronically Signed By: GAIL BANERJEE MD
[2025-07-16] MEDS: Albuterol/Iprat 2.5/0.5MG 3 ML AMPUL.NEB INHALE ×2 (07:35→15:12)
[2025-07-16] MEDS: 0.9 % Sodium Chloride Flush 3 ML SYRINGE IVFLUSH ×2 (08:19→20:10)
[2025-07-16] MEDS: Furosemide 40 MG/4 ML VIAL IVPUSH ×2 (08:19→17:21)
[2025-07-16] MEDS: Sacubitril/Valsartan 49/51 1 TAB TABLET PO ×2 (08:19→20:09)
--- NOTE | 2025-07-16 12:00 | PC.NURSE ---
Pt non compliant with recording output, educated by this RN on importance. Reported to farrowing worker.
[2025-07-16 12:01] LABS: Alanine Aminotransferase 25 U/L (0-40); Albumin Level 2.8 g/dL (3.5-5.0); Alkaline Phosphatase 106 U/L (39-117); Anion Gap 10 (12-20); Aspartate Amino Transferase 25 U/L (5-37); Blood Urea Nitrogen 18 mg/dL (9-16); Calcium 8.2 mg/dL (8.4-10.2); Carbon Dioxide 26 mmol/L (22-29); Chloride 107 mmol/L (96-108); Creatinine Clr Calc Pharmacy 85.6; Estimated Glomerular Filt Rate > 60; Magnesium 2.0 mg/dL (1.6-2.6); Potassium 4.3 mmol/L (3.3-5.1); Sodium 139 mmol/L (135-145); Total Protein 5.9 g/dL (6.5-8.0)
--- NOTE | 2025-07-16 12:10 | PM.PNCARD ---
Subjective Subjective Date of Service: 07/16/25 Principal diagnosis: Decompensated congestive heart failure noncompliance Interval history: Noted overnight to have tachycardia reviewing the monitor appears to be sinus tachycardia. Patient has no arrhythmias except for PVCs. Continues to have leg swelling and scrotal swelling. Still short of breath. Review of Systems Constitutional: Reports no additional constitutional complaints Cardiovascular: Denies chest pain, Reports rapid heart rate, Reports leg edema, Denies palpitations, Reports dyspnea on exertion and Reports orthopnea Respiratory: Reports dyspnea on exertion Endocrine: Denies palpitations Physical Exam Vital Signs: Last Vital Signs Temp 98.6 F 07/16/25 11:25 Pulse 114 H 07/16/25 11:25 Resp 16 07/16/25 11:25 BP 122/85 07/16/25 11:25 Pulse Ox 94 07/16/25 11:25 O2 Del Method Room Air 07/16/25 11:25 BMI result Body Mass Index 29.4 Const General: cooperative, comfortable, alert, awake and in distress mild and respiratory Nutritional Appearance: overweight Orientation/consciousness: patient oriented x3 HEENT Head: Yes normocephalic and Yes atraumatic Neck Neck: Yes trachea midline, Yes supple and Yes JVD Resp Effort & Inspection: normal respiratory effort Auscultation: rales and diminished lung sounds Cardio Jugular venous distension: JVD Palpation: abnormal PMI displaced PMI Rate: tachycardic Rhythm: abnormal rhythm with ectopic beats Heart sounds: S1 normal heart sound present, S2 normal heart sound present, no click, Gallop heart sound present S3 gallop, no murmurs and no rubs GI Auscultation: normal bowel sounds Skin General skin exam: no rashes or lesions noted Neuro General: patient oriented x3 and no focal motor deficits Extrem General: No clubbing, No cyanosis and Yes edema Objective Labs and Meds 07/15/25 07:17 07/16/25 11:33 Lab results: Laboratory Results - last 24 hr 07/16/25 11:33 Sodium 139 Potassium 4.3 Chloride 107 Carbon Dioxide 26 Anion Gap 10 L BUN 18 H Creatinine 1.12 Estim Creat Clear Calc 85.6 Estimated GFR > 60 Random Glucose 130 H Calcium 8.2 L Magnesium 2.0 Total Bilirubin 0.4 AST 25 ALT 25 Alkaline Phosphatase 106 Total Protein 5.9 L Albumin 2.8 L Progress Note: A&P Assessment and plan (1) Decompensated heart failure with reduced ejection fraction (HFrEF): Status: Acute Assessment and Plan: Decompensated congestive heart failure in this middle-aged man related to noncompliance with severe LV systolic dysfunction with sinus tachycardia mostly compensated he mechanism and off beta-poppy. Patient requires better intake and output chart and this was discussed with the nursing team. Continue IV diuresis and strict intake and output chart follow up. Continue monitor renal function as well as electrolytes. Replace magnesium and potassium if need be. Continue Entresto therapy. Can add carvedilol at 3.125 mg b.i.d.. No need for antiarrhythmic drug therapy. Continue Jardiance. Will follow Time Spent With Patient Time: Total time managing care of this patient today ____ minutes. Progress Note: Quality Stroke Does the patient have a stroke diagnosis?: No Procedures Date of Service Date of Service: 07/16/25
--- NOTE | 2025-07-16 12:34 | P.PNIM_ITS ---
Subjective Subjective Date of Service: 07/16/25 Interval History: f/u on heart failure exacerbation and non-compliance with meds Overall heading in the right direction, yet remains fluid overloaded and has been having tachycardia, yet assymptomatic Physical Exam 2 Vital Signs: Vital Signs: Last Vital Signs Temp 98.6 F 07/16/25 11:25 Pulse 114 H 07/16/25 11:25 Resp 16 07/16/25 11:25 BP 122/85 07/16/25 11:25 Pulse Ox 94 07/16/25 11:25 O2 Del Method Room Air 07/16/25 11:25 BMI result Body Mass Index 29.4 Const: Other: General: AO X 3, no acute distress Resp: CTA bilateral CVS: S1,S2,RRR, 1+ edema tense GI: +BS, NT, no distention Skin: No rash Neuro: motor grossly intact Psych: appropriate affect Objective Data Active Medications Acetaminophen (Acetaminophen 325 Mg Tablet) 650 mg PO Q6H PRN PRN Reason: Pain, Mild 1-3,fever,headache Albuterol/Ipratropium (Albuterol/Iprat 2.5/0.5mg 3 Ml Ampul.Neb) 3 ml INHALE RQ6H WHILE AWAKE [facility] Last Admin: 07/16/25 07:35 Dose: 3 ml Documented By: FILOMENA Albuterol/Ipratropium (Albuterol/Iprat 2.5/0.5mg 3 Ml Ampul.Neb) 3 ml INHALE RQ4H WHILE AWAKE PRN PRN Reason: shortness of breath/wheezing Apixaban (Apixaban 5 Mg Tablet) 5 mg PO BID [facility] Last Admin: 07/16/25 08:19 Dose: 5 mg Documented By: ALMAZ Calcium Carbonate (Calcium Carbonate 750 Mg Tab.Chew) 750 mg PO Q4H PRN PRN Reason: Heartburn Carvedilol (Carvedilol 3.125 Mg Tablet) 3.125 mg PO BID [facility]; Protocol Last Admin: 07/16/25 11:11 Dose: 3.125 mg Documented By: ALMAZ Empagliflozin (Empagliflozin 10 Mg Tablet) 10 mg PO DAILY [facility] Last Admin: 07/16/25 08:19 Dose: 10 mg Documented By: ALMAZ Furosemide (Furosemide 40 Mg/4 Ml Vial) 40 mg IVPUSH BID@0900,1800 [facility]; Protocol Last Admin: 07/16/25 08:19 Dose: 40 mg Documented By: ALMAZ Magnesium Hydroxide (Milk Of Magnesia 30 Ml Oral.Susp) 30 ml PO DAILY PRN PRN Reason: Constipation Melatonin (Melatonin 3 Mg Tablet) 6 mg PO BEDTIME PRN PRN Reason: Insomnia Nicotine (Nicotine 14 Mg Patch.Td24) 14 mg TRANSDERMA DAILY [facility] Last Admin: 07/16/25 08:14 Dose: Not Given Documented By: ALMAZ Non-Admin Reason: Patient Refused Sacubitril/Valsartan (Sacubitril/Valsartan 49/51 1 Tab Tablet) 1 tab PO BID [facility]; Protocol Last Admin: 07/16/25 08:19 Dose: 1 tab Documented By: ALMAZ Sodium Chloride (0.9 % Sodium Chloride Flush 3 Ml Syringe) 3 ml IVFLUSH QSHIFT [facility] Last Admin: 07/16/25 08:19 Dose: 3 ml Documented By: ALMAZ Topiramate (Topiramate 25 Mg Tablet) 25 mg PO BID [facility] Last Admin: 07/16/25 08:19 Dose: 25 mg Documented By: ALMAZ Labs 07/15/25 07:17 07/16/25 11:33 Labs: Laboratory Results - last 24 hr 07/16/25 11:33 Anion Gap 10 L Estim Creat Clear Calc 85.6 Estimated GFR > 60 Random Glucose 130 H Calcium 8.2 L Magnesium 2.0 Total Bilirubin 0.4 AST 25 ALT 25 Alkaline Phosphatase 106 Total Protein 5.9 L Albumin 2.8 L Assessment and Plan (1) Decompensated heart failure with reduced ejection fraction (HFrEF): Status: Acute Plan This is a 50 year old male with history of VFib/cardiac arrest s/p AICD, afib, COPD, HFrEF 10-15%, cocaine use who presents to the ED with SOB found to have CHF Acute on chronic combined systolic and diastolic CHF due to medication non-compliance (ran out of meds, couldn't get refill) as well as ongoing cocaine use +PND, orthopnea, tachypnea; pleural effusions on imaging, elevated pro-BNP; +JVD and lower extremity edema last echo from 05/2025 with ef 10-15% with grade 3 diastolic dysfunction, severe global hypokinesis negative 1600 overnight--but not being tracted well continue IV lasix, might need a drip troponin flat follow Is&Os, monitor on tele, monitor electrolytes cardiology consult - avoid BB at this time due to active cocaine use, restart entresto and titrate up and jardiance, will add BB later paroxysmal atrial fibrillation start coreg 3.125 bid continue AC with Eliquis chest pain trops flat monitoring on tele cardiology consult Tachycardia, likely related to heart failure but at risk for arrytmia check tsh, continue coreg copd breathing treatments as needed h/o vfib/cardiac arrest s/p AICD tobacco dependence Smoking cessation advised NRT substance use disorder endorses using crack cocaine tox screen pending addiction medicine consult dvt ppx - Eliquis Patient will likely require two midnight stay in the hospital for management of acute decompensated heart failure requiring continuous Lasix drip, specialist evaluation and close cardiac monitoring Quality Stroke Does the patient have a stroke diagnosis?: No VTE Prior VTE?: No VTE Risk Level:: Medical - moderate - high VTE Device Contraindication: N/A - Device Ordered VTE Drug Contraindication: N/A - Med Ordered
[2025-07-17 03:32] VITALS: BP 108/79; PULSE 120; RESP 18; TEMP 36.1; O2SAT 98
[2025-07-17 06:03] VITALS: BP 107/76
[2025-07-17] MEDS: Furosemide 40 MG/4 ML VIAL IVPUSH (06:03)
[2025-07-17] MEDS: Albuterol/Iprat 2.5/0.5MG 3 ML AMPUL.NEB INHALE (07:08)
[2025-07-17 07:11] VITALS: PULSE 115; RESP 16; O2SAT 100
[2025-07-17 07:19] VITALS: BP 109/77; PULSE 115; RESP 16; TEMP 36.3; O2SAT 94
[2025-07-17 07:59] LABS: Alanine Aminotransferase 25 U/L (0-40); Albumin Level 3.1 g/dL (3.5-5.0); Alkaline Phosphatase 106 U/L (39-117); Anion Gap 10 (12-20); Aspartate Amino Transferase 29 U/L (5-37); Blood Urea Nitrogen 21 mg/dL (9-16); Calcium 8.6 mg/dL (8.4-10.2); Carbon Dioxide 26 mmol/L (22-29); Chloride 107 mmol/L (96-108); Creatinine Clr Calc Pharmacy 81.3; Estimated Glomerular Filt Rate > 60; Potassium 4.3 mmol/L (3.3-5.1); Sodium 139 mmol/L (135-145); Total Protein 6.5 g/dL (6.5-8.0)
[2025-07-17] MEDS: 0.9 % Sodium Chloride Flush 3 ML SYRINGE IVFLUSH (08:02)
[2025-07-17 08:03] VITALS: BP 109/77; PULSE 115
[2025-07-17] MEDS: Sacubitril/Valsartan 49/51 1 TAB TABLET PO (08:03)
--- NOTE | 2025-07-17 11:23 | PC.NURSE ---
Pt educated on use of hat for accurate I & O, unable to use urinal due to scrotal edema. Pt non compliant with hat in toilet.
[2025-07-17 11:40] VITALS: BP 99/66; PULSE 104; RESP 14; TEMP 36.3; O2SAT 97
--- NOTE | 2025-07-17 11:44 | HO.PM.IMPN ---
Subjective Subjective Date of Service: 07/17/25 Interval History: ] f/u on heart failure exacerbation and non-compliance with meds Overall heading in the right direction, yet remains fluid overloaded I/O doesn't appear to be reliable. tachycardia is much improved. Physical Exam Vital Signs: Vital Signs: Last Vital Signs Temp 97.4 F 07/17/25 11:40 Pulse 104 H 07/17/25 11:40 Resp 14 07/17/25 11:40 BP 99/66 07/17/25 11:40 Pulse Ox 97 07/17/25 11:40 O2 Del Method Room Air 07/17/25 11:40 BMI result Body Mass Index 29.4 Const: Other: General: AO X 3, no acute distress Resp: CTA bilateral CVS: S1,S2,RRR, 1+ edema tense GI: +BS, NT, no distention Skin: No rash Neuro: motor grossly intact Psych: appropriate affect Objective Data Active Medications Acetaminophen (Acetaminophen 325 Mg Tablet) 650 mg PO Q6H PRN PRN Reason: Pain, Mild 1-3,fever,headache Albuterol/Ipratropium (Albuterol/Iprat 2.5/0.5mg 3 Ml Ampul.Neb) 3 ml INHALE RQ6H WHILE AWAKE [facility] Last Admin: 07/17/25 07:08 Dose: 3 ml Documented By: CHRISTINA Albuterol/Ipratropium (Albuterol/Iprat 2.5/0.5mg 3 Ml Ampul.Neb) 3 ml INHALE RQ4H WHILE AWAKE PRN PRN Reason: shortness of breath/wheezing Apixaban (Apixaban 5 Mg Tablet) 5 mg PO BID [facility] Last Admin: 07/17/25 08:03 Dose: 5 mg Documented By: ALMAZ Calcium Carbonate (Calcium Carbonate 750 Mg Tab.Chew) 750 mg PO Q4H PRN PRN Reason: Heartburn Carvedilol (Carvedilol 6.25 Mg Tablet) 6.25 mg PO BID [facility]; Protocol Empagliflozin (Empagliflozin 10 Mg Tablet) 10 mg PO DAILY [facility] Last Admin: 07/17/25 08:03 Dose: 10 mg Documented By: ALMAZ Furosemide (Furosemide 40 Mg/4 Ml Vial) 40 mg IVPUSH BID@0900,1800 [facility]; Protocol Last Admin: 07/17/25 06:03 Dose: 40 mg Documented By: FLOWER Magnesium Hydroxide (Milk Of Magnesia 30 Ml Oral.Susp) 30 ml PO DAILY PRN PRN Reason: Constipation Melatonin (Melatonin 3 Mg Tablet) 6 mg PO BEDTIME PRN PRN Reason: Insomnia Nicotine (Nicotine 14 Mg Patch.Td24) 14 mg TRANSDERMA DAILY [facility] Last Admin: 07/17/25 08:06 Dose: Not Given Documented By: ALMAZ Non-Admin Reason: Patient Refused Sacubitril/Valsartan (Sacubitril/Valsartan 49/51 1 Tab Tablet) 1 tab PO BID [facility]; Protocol Last Admin: 07/17/25 08:03 Dose: 1 tab Documented By: ALMAZ Sodium Chloride (0.9 % Sodium Chloride Flush 3 Ml Syringe) 3 ml IVFLUSH QSHIFT [facility] Last Admin: 07/17/25 08:02 Dose: 3 ml Documented By: ALMAZ Topiramate (Topiramate 25 Mg Tablet) 25 mg PO BID [facility] Last Admin: 07/17/25 08:03 Dose: 25 mg Documented By: ALMAZ Labs 07/15/25 07:17 07/17/25 07:11 Labs: Laboratory Results - last 24 hr 07/16/25 07/17/25 07/17/25 11:33 07:11 07:13 Hold Purple Top SEE NOTE Anion Gap 10 L 10 L Estim Creat Clear Calc 85.6 81.3 Estimated GFR > 60 > 60 Random Glucose 130 H 111 Calcium 8.2 L 8.6 Magnesium 2.0 Total Bilirubin 0.4 0.4 AST 25 29 ALT 25 25 Alkaline Phosphatase 106 106 Total Protein 5.9 L 6.5 Albumin 2.8 L 3.1 L Assessment and Plan (1) Decompensated heart failure with reduced ejection fraction (HFrEF): Status: Acute Plan This is a 50 year old male with history of VFib/cardiac arrest s/p AICD, afib, COPD, HFrEF 10-15%, cocaine use who presents to the ED with SOB found to have CHF Acute on chronic combined systolic and diastolic CHF due to medication non-compliance (ran out of meds, couldn't get refill) as well as ongoing cocaine use +PND, orthopnea, tachypnea; pleural effusions on imaging, elevated pro-BNP; +JVD and lower extremity edema last echo from 05/2025 with ef 10-15% with grade 3 diastolic dysfunction, severe global hypokinesis negative 1600 overnight--but not being tracted well continue IV lasix, might need a drip troponin flat follow Is&Os, monitor on tele, monitor electrolytes cardiology consult - avoid BB at this time due to active cocaine use, continue entresto and titrate up and jardiance, increase Coreg to 6.25 and continue closely monitoring of I/O, electrolyes paroxysmal atrial fibrillation start coreg 3.125 bid continue AC with Eliquis chest pain trops flat monitoring on tele cardiology consult Tachycardia, likely related to heart failure but at risk for arrytmia check tsh, continue coreg copd breathing treatments as needed h/o vfib/cardiac arrest s/p AICD tobacco dependence Smoking cessation advised NRT substance use disorder endorses using crack cocaine tox screen pending addiction medicine consult dvt ppx - Eliquis Patient will likely require two midnight stay in the hospital for management of acute decompensated heart failure requiring continuous Lasix drip, specialist evaluation and close cardiac monitoring Quality Stroke Does the patient have a stroke diagnosis?: No VTE Prior VTE?: No VTE Risk Level:: Medical - moderate - high VTE Device Contraindication: N/A - Device Ordered VTE Drug Contraindication: N/A - Med Ordered
--- NOTE | 2025-07-17 12:01 | PM.PNCARD ---
Subjective Subjective Date of Service: 07/17/25 Principal diagnosis: Decompensated congestive heart failure noncompliance Interval history: Patient still complains of leg swelling and scrotal edema. Shortness of breath is improving. Unfortunately intake and output chart is not accurately charted partly due to patient compliance issues. EKGs shows ectopic atrial tachycardia otherwise heart rate remains elevated. Denies any palpitations. Will started on carvedilol yesterday. Review of Systems Constitutional: Reports weakness Cardiovascular: Denies chest pain, Denies rapid heart rate, Reports leg edema, Denies palpitations and Reports dyspnea Respiratory: Reports no additional respiratory complaints and Reports dyspnea Reports weakness Endocrine: Denies palpitations Physical Exam Vital Signs: Last Vital Signs Temp 97.4 F 07/17/25 11:40 Pulse 104 H 07/17/25 11:40 Resp 14 07/17/25 11:40 BP 99/66 07/17/25 11:40 Pulse Ox 97 07/17/25 11:40 O2 Del Method Room Air 07/17/25 11:40 BMI result Body Mass Index 29.4 Const General: cooperative, comfortable, alert, awake and in distress mild and respiratory Nutritional Appearance: overweight Orientation/consciousness: patient oriented x3 HEENT Head: Yes normocephalic and Yes atraumatic Neck Neck: Yes trachea midline, Yes supple and Yes JVD Resp Effort & Inspection: normal respiratory effort Auscultation: rales and diminished lung sounds Cardio Jugular venous distension: JVD Palpation: abnormal PMI displaced PMI Rate: tachycardic Rhythm: abnormal rhythm with ectopic beats Heart sounds: S1 normal heart sound present, S2 normal heart sound present, no click, Gallop heart sound present S3 gallop, no murmurs and no rubs GI Auscultation: normal bowel sounds Skin General skin exam: no rashes or lesions noted Neuro General: patient oriented x3 and no focal motor deficits Extrem General: No clubbing, No cyanosis and Yes edema Objective Labs and Meds 07/15/25 07:17 07/17/25 07:11 Lab results: Laboratory Results - last 24 hr 07/16/25 07/17/25 07/17/25 11:33 07:11 07:13 Hold Purple Top SEE NOTE Sodium 139 139 Potassium 4.3 4.3 Chloride 107 107 Carbon Dioxide 26 26 Anion Gap 10 L 10 L BUN 18 H 21 H Creatinine 1.12 1.18 Estim Creat Clear Calc 85.6 81.3 Estimated GFR > 60 > 60 Random Glucose 130 H 111 Calcium 8.2 L 8.6 Magnesium 2.0 Total Bilirubin 0.4 0.4 AST 25 29 ALT 25 25 Alkaline Phosphatase 106 106 Total Protein 5.9 L 6.5 Albumin 2.8 L 3.1 L Progress Note: A&P Assessment and plan (1) Decompensated heart failure with reduced ejection fraction (HFrEF): Status: Acute Assessment and Plan: Decompensated congestive heart failure with severe LV systolic dysfunction, 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 Continues to use cocaine. Consider detox evaluation for outpatient guide therapy. Maximize carvedilol 6.25 mg b.i.d.. Continue Entresto as well as Jardiance and continue current diuretic. Discussed with nursing staff and the patient importance of measuring strict intake and output chart. Continue monitor renal function as well as electrolytes and magnesium and BNP. Overall prognosis is guarded. If blood pressure becomes issue in his heart rate remains high and has persistently ectopic atrial tachycardia may consider use of amiodarone at that point time. Will follow. Will follow with you Time Spent With Patient Time: Total time managing care of this patient today ____ minutes. Progress Note: Quality Stroke Does the patient have a stroke diagnosis?: No Procedures Date of Service Date of Service: 07/17/25
--- NOTE | 2025-07-17 13:35 | PM.DS ---
DS: Providers Provider Date of Service: 07/17/25 Date of admission: 07/14/25 07:56 Date of discharge: 07/17/25 Primary care physician: [facility] Consults: 07/14/25 08:16 Consult to Cardiology Routine Consulting Provider: [facility] Reason for consultation: acute on chronic chf Has provider been notified: No 07/14/25 09:20 Addiction Medicine Provider Routine Consulting Provider: [facility] Reason for consultation: cocaine use Has provider been notified: No DS: Diagnosis Discharge Diagnosis (1) Decompensated heart failure with reduced ejection fraction (HFrEF): Status: Acute DS: Summary Hospital Course Hospital Course: Chief Complaint: sob This is a 50-year-old male with a history of atrial fibrillation, VFib cardiac arrest status post ICD,HFrEF 10-15% presents to the emergency room with complaints of shortness of breath and chest pain. 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 Patient reports running out of his medication 2 weeks ago and since that time he has been having increasing dyspnea on exertion and lower extremity edema. He endorses dyspnea, orthopnea, PND. In the emergency department he was noted to have bilateral lower extremity edema, scrotal edema. Chest x-ray showed bilateral pleural effusions, proBNP was elevated at 7279. He was initially tachypneic. He received 40 mg IV push Lasix and was then started on a continuous Lasix drip. Of note, the patient does endorse using crack cocaine and smoking half a pack of cigarettes daily. Patient reports non-radiating chest pain across the front of his chest, worse with deep inspiration as well as palpation and with exertion. Initial troponin 19.3. Prior to running out of his medication he reports feeling well with no sob. He was discharged from [facility] on 05/27 after being treated for CHF and was to follow up with cardiology for outpatient ischemic workup, but it does not appear he has yet had a follow up appointment. Hospital course: He has been receiving treatment for decompensated heart failure, including ongoing monitoring, medication adjustments, and expert guidance. He has decided to leave against medical advice, without citing any specific reason. He is alert and oriented. He was advised not to leave due to the risks, including possible worsening of heart failure, need for rehospitalization, severe symptoms, and even the possibility of . He demonstrated understanding by repeating this information back in his own words and chose to sign out against medical advice. Prescriptions have been sent to his preferred pharmacy, [facility]. Final diagnoses: Decompensated acute systolic heart failure Anasarca PAF History of Vifib arrest s/p AICD COPD Substance use disorder Tobacco use disorder Time Attestation Discharge Coordination Time (in mins): 40 Quality: Safe Use of Opioids Does Pt have an Active Cancer Diagnosis on the Problem List?: No Quality: Stroke Does the patient have a stroke diagnosis?: No Physical Exam Vital Signs: Vital Signs: Last Vital Signs Temp 97.4 F 07/17/25 11:40 Pulse 104 H 07/17/25 11:40 Resp 14 07/17/25 11:40 BP 99/66 07/17/25 11:40 Pulse Ox 97 07/17/25 11:40 O2 Del Method Room Air 07/17/25 11:40 BMI result Body Mass Index 29.4 DS: Data Data Completed and Pending Labs on day of discharge: Laboratory Results - last 24 hr 07/17/25 07/17/25 07:11 07:13 Hold Purple Top SEE NOTE Sodium 139 Potassium 4.3 Chloride 107 Carbon Dioxide 26 Anion Gap 10 L BUN 21 H Creatinine 1.18 Estim Creat Clear Calc 81.3 Estimated GFR > 60 Random Glucose 111 Calcium 8.6 Total Bilirubin 0.4 AST 29 ALT 25 Alkaline Phosphatase 106 Total Protein 6.5 Albumin 3.1 L Discharge Plan Discharge Anticipated Discharge Date/Time: 07/17/25 13:28 Patient Disposition: Left Against Medical Advice Discharge Diagnosis: Decompensated Heart Failure Referrals: [facility] [Provider Group, Addiction Medicine] - 07/19/25 2:00 pm Referral Note: Please attend your intake appointment with Irene at the [facility] on 07/19/2025 @ [address] [place] [address] [Primary Care Provider, Medical] - 1 Week Discharge Medications: New carvedilol 6.25 mg Tablet 6.25 mg PO BID Qty: 180 0RF Protocol: Hold for SBP/HR < HOLD for SBP < : 90 HOLD for HR < : 60 Jardiance 10 mg Tablet 10 mg PO DAILY Qty: 90 0RF sacubitril-valsartan [Entresto] 49-51 mg Tablet 1 tab PO BID Qty: 180 0RF Protocol: Hold for SBP< HOLD for SBP < : 90 Continued furosemide [Lasix] 40 mg tablet 40 mg PO DAILY Qty: 90 2RF Eliquis 5 mg Tablet 5 mg PO BID Qty: 180 2RF Discontinued metoprolol succinate [Toprol XL] 25 mg tablet extended release 24 hr 25 mg PO DAILY Qty: 30 0RF Discharge Orders: Discharge Order (Routine); Ordered 07/17/25 Ordered By: David Grossman Diet: Low salt diet Activity on Discharge: As tolerated Print Language: Lao Care Plan Goals: recovery from heart failure prevention of hospitailization Health Concerns: heart failure Plan of Treatment: take all medication as prescribed and follow up with your doctor in week, call for appointment. You are leaving against medical advised knowing your treatment is not yet completed and that you can develop worsening of your condition, complications, and even Assessment: see above Patient Instructions: Carvedilol (By mouth), Empagliflozin (By mouth), Sacubitril/Valsartan (By mouth)
--- NOTE | 2025-07-17 13:47 | PC.NURSE ---
pt threatening to leave AMA because he wanted to shower at home . Dr. parikh at bedside. AMA formed signed by pt and 2 RNs, discharge paperwork reviewed with pt. pt amulated off unit with steady gait .
--- NOTE | 2025-08-10 09:46 | P.CDIM_ITS ---
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 Please review below and update the documentation accordingly. Clinical Indicators: Cardiology progress note 07/17/25 - Decompensated congestive heart failure with severe LV systolic dysfunction, question ischemic vs. cocaine medicated cardiomyopathy. Continues to use cocaine. Maximize carvedilol 6.25 mg b.i.d Lasix regimen. Continue to monitor renal function as well as electrolytes and magnesium and BNP. Non-compliance with medications. Short of breath, leg swelling, [place]IST[place], tachycardic. Substance abuse, endorses using crack cocaine. Toxicology - Positive cocaine Consistency of a documented diagnosis with in the medical record. 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 Other form of cardiomyopathy please specify Other (explain) Clinically unable to determine (explain) Thank you, Comfort Hawkins, CCS, CDIS Use of terms such as suspected, likely, concern for, or probable (associated with a specific diagnosis that is being evaluated, monitored, or treated as if it exists) are acceptable and can be coded in the inpatient setting, when documented at the time of discharge. Please use your independent medical judgment in providing your response. THIS QUERY IS PART OF THE PERMANENT MEDICAL RECORD
== END 2025-07-17 13:46 | disposition left against medical advice (07) | DRG 816 ==
LOC: HO.ED 06:05 → HO.EDOVER 08:31 → HO.IMC 19:42
PROVIDERS: Admitting Provider Physician Assistant Medical; Emergency Provider Emergency Medicine; Visit Provider Internal Medicine
DX: T40.5X1A Poisoning by cocaine, accidental (unintentional), initial encounter (principal); I50.43 Acute on chronic combined systolic (congestive) and diastolic (congestive) heart failure; I42.7 Cardiomyopathy due to drug and external agent; Z86.74 Personal history of sudden cardiac arrest; F14.10 Cocaine abuse, uncomplicated; F17.210 Nicotine dependence, cigarettes, uncomplicated; Z71.6 Tobacco abuse counseling; I48.0 Paroxysmal atrial fibrillation; I49.3 Ventricular premature depolarization; I25.5 Ischemic cardiomyopathy; Z20.822 Contact with and (suspected) exposure to COVID-19; Z91.148 Patient's other noncompliance with medication regimen for other reason; Z91.199 Patient's noncompliance with other medical treatment and regimen due to unspecified reason; Z59.811 Housing instability, housed, with risk of homelessness; Z95.810 Presence of automatic (implantable) cardiac defibrillator; Z79.899 Other long term (current) drug therapy
CPT/HCPCS: 36415; 71045; 80048; 80053; 80307; 81001; 83735; 83880; 84484; 85025; 85027; 85610; 87502; 87635; 93005; 94640; 99285; J1938; S9485

== ENCOUNTER → 2025-07-14 05:56 | Outpatient (BNV) | payer MEDICAID, SELFPAY | PROVIDERS: Emergency Provider Emergency Medicine; Visit Provider Radiology Diagnostic Radiology | DX: J90 Pleural effusion, not elsewhere classified (principal) | CPT/HCPCS: 71045 ==

== ENCOUNTER 2025-07-14 07:56 | Outpatient (BNV) | payer MEDICAID, SELFPAY | END 2025-07-16 10:24 | PROVIDERS: Admitting Provider Physician Assistant Medical; Emergency Provider Emergency Medicine; Visit Provider Internal Medicine Cardiovascular Disease | DX: R00.0 Tachycardia, unspecified (principal) | CPT/HCPCS: 93010 ==

== ENCOUNTER 2025-07-14 07:56 | Outpatient (BNV) | payer MEDICAID, SELFPAY | END 2025-07-15 16:22 | PROVIDERS: Admitting Provider Physician Assistant Medical; Emergency Provider Emergency Medicine; Visit Provider Internal Medicine Cardiovascular Disease | DX: I49.3 Ventricular premature depolarization (principal); R00.0 Tachycardia, unspecified | CPT/HCPCS: 93010 ==

== ENCOUNTER → 2025-07-14 07:56 | Outpatient (BNV) | payer OTHER, SELFPAY | PROVIDERS: Admitting Provider Physician Assistant Medical; Emergency Provider Emergency Medicine; Visit Provider Nurse Practitioner Psychiatric/Mental Health | DX: F14.10 Cocaine abuse, uncomplicated (principal) | CPT/HCPCS: 99221 ==

== ENCOUNTER → 2025-07-14 07:56 | Outpatient (BNV) | payer MEDICAID, SELFPAY | PROVIDERS: Admitting Provider Physician Assistant Medical; Emergency Provider Emergency Medicine; Visit Provider Internal Medicine | DX: I50.23 Acute on chronic systolic (congestive) heart failure (principal) | CPT/HCPCS: 99223; 99239; 99499 ==

== ENCOUNTER → 2025-07-14 07:56 | Outpatient (BNV) | payer MEDICAID, SELFPAY | PROVIDERS: Admitting Provider Physician Assistant Medical; Emergency Provider Emergency Medicine; Visit Provider Internal Medicine Cardiovascular Disease | DX: I50.23 Acute on chronic systolic (congestive) heart failure (principal) | CPT/HCPCS: 93010; 99222 ==

== ENCOUNTER 2025-07-22 22:11 | Inpatient (IN) | payer MEDICAID, SELFPAY ==
--- NOTE | 2025-07-22 | ECG_ITS ---
Test Reason : EPIGASTRIC PAIN Blood Pressure : */* mmHG Vent. Rate : 98 BPM Atrial Rate : 98 BPM P-R Int : 144 ms QRS Dur : 98 ms QT Int : 368 ms P-R-T Axes : 52 -18 154 degrees QTcB Int : 469 ms Normal sinus rhythm Possible Left atrial enlargement Anterior infarct , age undetermined ST & T wave abnormality, consider lateral ischemia Abnormal ECG When compared with ECG of 16-Jul-2025 10:24, Sinus rhythm has replaced Ectopic atrial rhythm Referred By: Generic ED Physician Electronically Signed By: Chuy Marroquin
--- NOTE | ~2025-07-22 | XR_ITS ---
CLINICAL HISTORY: sob 1 view chest x-ray Comparison: CR - XR CHEST 1V - 07/14/25 05:56 EDT Findings: Moderate cardiomegaly. Left chest wall single lead cardiac pacing device again noted. Tiny bilateral pleural effusions. Diffuse mild interstitial and alveolar pulmonary edema. IMPRESSION: 1. Moderate cardiomegaly with moderate CHF findings. No significant change from previous exam. This document has been electronically signed by: Joesph Pena MD on 07/23/2025 00:04:09
[2025-07-22 22:22] VITALS: BP 119/65; PULSE 92; O2SAT 98
[2025-07-22 22:29] VITALS: BP 110/76; PULSE 87; RESP 24; TEMP 36.4; O2SAT 99; BMI 26.6
[2025-07-22 22:33] VITALS: BP 110/76; PULSE 87; RESP 24; TEMP 36.4; O2SAT 99
[2025-07-22 22:51] LABS: Hematocrit 39.5 % (42.0-52.0); Hemoglobin 12.5 g/dl (14.0-18.0); Imm Gran Abs Auto 0.04 X10*3/uL (0.00-0.03); Imm Gran Pct Auto 0.4 % (0.0-0.4); Lymphocytes Absolute Auto 1.3 X10*3/uL (1.2-4.9); MANUAL DIFF FLAG NO; Mean Corpuscular HGB Conc 31.6 g/dl (31.0-36.0); Mean Corpuscular Hemoglobin 30.7 pg (27.0-33.0); Mean Corpuscular Volume 97.1 fL (80.0-98.0); NRBC Abs Auto 0.000 X10*3/uL (0.0-0.012); NRBC Pct Auto 0.0 /100WBC (0.0-0.2); Platelet Count 243 X10*3/uL (160-400); Red Blood Count 4.07 X10*6/uL (4.60-5.80); White Blood Count 11.3 X10*3/uL (4.8-10.8)
--- NOTE | 2025-07-22 23:20 | ED_ITS ---
HPI - SOB/Dyspnea General Chief Complaint: Dyspnea Stated Complaint: SOB Time Seen by Provider: 07/22/25 22:58 Source: patient and EMS Mode of arrival: EMS Limitations: no limitations History of Present Illness ED Provider: Dr. Lizbeth Humphries HPI Narrative: Patient comes to the emergency room via ambulance from home. Patient complaining of shortness of breath with exertion and lying flat. Patient states that he was discharged from the hospital 5 days ago, he was here for anasarca. Patient denies any chest pain. Denies any URI symptoms. Initially, he reported epigastric pain to EMS but he denied it to me. Patient believes that he has gained about 10 lb in the last 5 days. Related Data Previous Rx's ?Medication ?Instructions ?Recorded metoprolol succinate 25 mg 25 mg PO DAILY #30 tabs tablet,extended release 24 hr (Toprol XL) apixaban 5 mg tablet (Eliquis) 5 mg PO BID #180 tabs 1 carvedilol 6.25 mg tablet 6.25 mg PO BID #180 tabs 09/29 empagliflozin 10 mg tablet 10 mg PO DAILY #90 tabs 09/29 (Jardiance) furosemide 40 mg tablet (Lasix) 40 mg PO DAILY #90 tab s 07/17/25 sacubitril 49 mg-valsartan 51 mg 1 tab PO BID #180 tab s 07/17/25 tablet (Entresto) Allergies Allergy/AdvReac Type Severity Reaction Status Date / Time No Known Allergies Allergy Verified 07/22/25 22:33 Review of Systems 2 Review of Systems: Constitutional : No Weight loss, No Fever, No Chills, No Night Sweats, No Fatigue, No Malaise ENT/Mouth : No Hearing loss, No Ear Pain, No Nasal Congestion, No Sinus Pain, No Hoarseness, No sore throat, No Rhinorrhea, No Swallowing Difficulty Eyes: No Eye Pain, No Swelling, No Redness, No Foreign Body, No Discharge, No Vision Changes Cardiovascular : No Chest Pain, complaining of mild dyspnea at rest, dyspnea on exertion and orthopnea. Complaining of worsening lower extremity edema Respiratory : No Cough, No Sputum, No Wheezing, complaining of dyspnea Gastrointestinal : No Nausea, No Vomiting, No Diarrhea, No Constipation, No abdominal Pain, No Hematochezia, No Melena Genitourinary : no irregular bleeding, No Dysuria, No Urinary Frequency, No Hematuria, No Urinary Incontinence, No Urgency, No Flank Pain, No Urinary Flow Changes, No Hesitancy Musculoskeletal : No joint pain, No Myalgias, No Joint Swelling Skin : No Skin Lesions, No rash Neuro : No Weakness, No Numbness, No Paresthesias, No Loss of Consciousness, No Dizziness, No Headache Psych : No Anxiety/Panic, No Depression, No SI/HI/AH/VH, No Social Issues, Heme/Lymph: No Bruising, No Bleeding,No Lymphadenopathy Endocrine : No Polyuria, No Polydipsia, No Temperature Intolerance [facility] Past Medical History Medical History Atrial fibrillation Paroxysmal A-fib Cardiomyopathy Atrial flutter Defibrillator discharge ICD (implantable cardioverter-defibrillator) malfunction Arrhythmia Systolic heart failure Cardiac defibrillator in place Ventricular fibrillation Polysubstance use disorder Social History Social History Household Members: Family Housing: Apartment Housing Other:: homeless Do you presently have visiting nurse or other home services: No Alcohol intake: never Patient Tobacco Use Status: Current everyday Tobacco user Tobacco use type: Cigarette Cigarette Packs Per Day: 1 Cigarettes Per Day: 7 Years Smoked: 38 Smoked in Last 30 Days: Yes e-Cigarette/Vaping Use: Currently Using Second Hand Smoke Exposure: Yes Use of substances other than those prescribed or required for medical reasons: Yes Substance Use Type: Crack/Cocaine, Heroin and Marijuana Advance Directives: Yes Advance Directives on File: Yes Advance Directives Date on File: 12/26/23 Do you have a plan to hurt others: No Plan service: No Physical Exam 2 Exam: Exam: Appearance: Alert. Oriented X3. No acute distress. Eyes: Pupils equal, round and reactive to light. ENT: Pharynx normal. Neck: Normal inspection. Neck supple. No lymph nodes noted. No crepitus CVS: Normal heart rate and rhythm. Pulses normal. Normal S1 and S2 Respiratory: No respiratory distress. Bilateral crackles, no rales, no wheezing Abdomen: Soft and nontender. No rigidity. No distention. : Swollen penis and scrotum Skin: Skin warm and dry. Normal skin color. Normal skin turgor. Extremities: +3 pitting edema bilaterally No Lacerations. No Rash Neuro: Oriented X 3. No motor deficit. No sensory deficit. Moving all extremities. No slurred speech. CN 2 through 12 grossly intact Psych: calm, cooperative, normal affect Vital Signs: Vital Signs: Last Vital Signs Temp 97.6 F 07/22/25 22:33 Pulse 87 07/22/25 22:33 Resp 24 H 07/22/25 22:33 BP 110/76 07/22/25 22:33 Pulse Ox 99 07/22/25 22:33 O2 Del Method Room Air 07/22/25 22:33 BMI result Body Mass Index 26.6 Course Course Course Narrative: Patient complaining of shortness of breath with exertion and lying flat. Patient was recently discharged from this hospital for anasarca. Medical Decision Making Medical Decision Making [facility] Narrative: My interpretation of EKG: Normal sinus rhythm, heart rate 98, chronic ST segment depression and T-wave inversions in V5 V6, QTC 469 I reviewed patient's records, patient was discharged on 07/17/2025 for anasarca. Patient known to have an ejection fraction of 10-15%. Patient states that he has been compliant with his diuretics. My interpretation of labs: No significant abnormality in patient's hematology significant abnormality in patient's electrolytes. Patient's troponin 34, [place] [address], last week was around 5000. Chest x-ray shows vascular congestion, seems to be similar to previous chest x- ray that was taking at the time of admission last week. Patient's vitals stable Patient received a dose of IV Lasix I discussed the above-mentioned with Dr. Burdick, patient being admitted Differential Diagnosis Differential Diagnoses: The differential diagnosis associated with the presentation includes (CHF exacerbation, anasarca, viral URI) Admission/Observation Consideration of admission/observation: Escalation of care including admission/observation considered (Given patient's significant past medical history and presentation, admission considered) Consult Healthcare Provider Management of the patient was discussed with: Hospitalist Lab Data [facility] Lab Attestation statement: I reviewed the patient's lab results. 07/22/25 22:38 07/22/25 23:33 Labs: Lab Results 07/22/25 07/22/25 07/22/25 Range/Units 22:38 22:52 23:33 WBC 11.3 H (4.8-10.8) X10*3/uL RBC 4.07 L (4.60-5.80) X10*6/uL Hgb 12.5 L (14.0-18.0) g/dl Hct 39.5 L (42.0-52.0) % MCV 97.1 (80.0-98.0) fL MCH 30.7 (27.0-33.0) pg MCHC 31.6 (31.0-36.0) g/dl RDW 14.8 (11.0-16.0) % Plt Count 243 (160-400) X10*3/uL MPV 10.1 (9.4-12.4) fL Immature Gran % (Auto) 0.4 (0.0-0.4) % Neut % (Auto) 80.0 H (45-73) % Lymph % (Auto) 11.5 L (20-40) % [place] % (Auto) 5.9 (2-11) % Eos % (Auto) 1.8 (0-4) % Baso % (Auto) 0.4 (0-2) % Lymph # (Auto) 1.3 (1.2-4.9) X10*3/uL [place] # (Auto) 0.7 (0.1-1.2) X10*3/uL Eos # (Auto) 0.2 (0.0-0.4) X10*3/uL Baso # (Auto) 0.1 (0.0-0.2) X10*3/uL Abs Immat Gran (auto) 0.04 H (0.00-0.03) X10*3/uL Absolute Neuts (auto) 9.0 H (2.0-8.3) x10*3/uL Absolute Nucleated RBC 0.000 (0.0-0.012) X10*3/uL Nucleated RBC % (auto) 0.0 (0.0-0.2) /100WBC Sodium 136 (135-145) mmol/L Potassium 5.0 (3.3-5.1) mmol/L Chloride 109 H (96-108) mmol/L Carbon Dioxide 22 (22-29) mmol/L Anion Gap 10 L (12-20) BUN 30 H (9-16) mg/dL Creatinine 1.12 (0.5-1.4) mg/dL Estim Creat Clear Calc 77.1 Estimated GFR > 60 Random Glucose 109 (60-115) mg/dL Calcium 8.9 (8.4-10.2) mg/dL Total Bilirubin 0.6 (0.0-1.0) mg/dL AST 35 (5-37) U/L ALT 46 H (0-40) U/L Alkaline Phosphatase 110 (39-117) U/L Troponin I High Sens 34.4 D (<3.5-35.0) ng/L NT-Pro-B Natriuret Pep 97714.7 H (<300) pg/mL Total Protein (6.5-8.0) g/dL Albumin (3.5-5.0) g/dL Lipase (8-78) U/L Urine Color Urine Appearance Urine pH (5.0-9.0) Ur Specific [place] (1.005-1.025) Urine Protein (Neg-Trace) mg/dL Urine Glucose (UA) (Negative) mg/dL Urine Ketones (Negative) mg/dL Urine Blood (Negative) Urine Nitrite (Negative) Ur Leukocyte Esterase (Negative) Urine RBC (0-2) /HPF Urine WBC (0-5) /HPF Ur Squamous Epith Cells (0-2) /HPF Urine Bacteria (None Seen) Hyaline Casts (0-2) /LPF COVID-19 (REJI) Negative (Negative) COVID-19 Clin Com See Note Influenza Type A (CHRISTIN) Negative (Negative) Influenza Type B (CHRISTIN) Negative (Negative) Influenza A & B Note See Note 07/22/25 07/23/25 Range/Units 23:33 00:13 WBC (4.8-10.8) X10*3/uL RBC (4.60-5.80) X10*6/uL Hgb (14.0-18.0) g/dl Hct (42.0-52.0) % MCV (80.0-98.0) fL MCH (27.0-33.0) pg MCHC (31.0-36.0) g/dl RDW (11.0-16.0) % Plt Count (160-400) X10*3/uL MPV (9.4-12.4) fL Immature Gran % (Auto) (0.0-0.4) % Neut % (Auto) (45-73) % Lymph % (Auto) (20-40) % [place] % (Auto) (2-11) % Eos % (Auto) (0-4) % Baso % (Auto) (0-2) % Lymph # (Auto) (1.2-4.9) X10*3/uL [place] # (Auto) (0.1-1.2) X10*3/uL Eos # (Auto) (0.0-0.4) X10*3/uL Baso # (Auto) (0.0-0.2) X10*3/uL Abs Immat Gran (auto) (0.00-0.03) X10*3/uL Absolute Neuts (auto) (2.0-8.3) x10*3/uL Absolute Nucleated RBC (0.0-0.012) X10*3/uL Nucleated RBC % (auto) (0.0-0.2) /100WBC Sodium (135-145) mmol/L Potassium (3.3-5.1) mmol/L Chloride (96-108) mmol/L Carbon Dioxide (22-29) mmol/L Anion Gap (12-20) BUN (9-16) mg/dL Creatinine (0.5-1.4) mg/dL Estim Creat Clear Calc Estimated GFR Random Glucose (60-115) mg/dL Calcium (8.4-10.2) mg/dL Total Bilirubin (0.0-1.0) mg/dL AST (5-37) U/L ALT (0-40) U/L Alkaline Phosphatase (39-117) U/L Troponin I High Sens (<3.5-35.0) ng/L NT-Pro-B Natriuret Pep Cancelled (<300) pg/mL Total Protein 6.6 (6.5-8.0) g/dL Albumin 3.4 L (3.5-5.0) g/dL Lipase 7 L (8-78) U/L Urine Color Yellow Urine Appearance Clear Urine pH 6.0 (5.0-9.0) Ur Specific [place] >= 1.030 H (1.005-1.025) Urine Protein 300 (3+) H (Neg-Trace) mg/dL Urine Glucose (UA) >=1000 H (Negative) mg/dL Urine Ketones Trace (Negative) mg/dL Urine Blood Negative (Negative) Urine Nitrite Negative (Negative) Ur Leukocyte Esterase Negative (Negative) Urine RBC 0-2 (0-2) /HPF Urine WBC 0-5 (0-5) /HPF Ur Squamous Epith Cells 0-2 (0-2) /HPF Urine Bacteria None Seen (None Seen) Hyaline Casts 0-2 (0-2) /LPF COVID-19 (REJI) (Negative) COVID-19 Clin Com Influenza Type A (CHRISTIN) (Negative) Influenza Type B (CHRISTIN) (Negative) Influenza A & B Note Independent Interpretation I performed an independent interpretation of an: EKG and Plain X-Ray Radiology Impression Discussion of test interpretation with radiology: I have reviewed the radiologist's reading. Radiologist Impression: Moderate cardiomegaly. Left chest wall single lead cardiac pacing device again noted. Tiny bilateral pleural effusions. Diffuse mild interstitial and alveolar pulmonary edema. IMPRESSION: 1. Moderate cardiomegaly with moderate CHF findings. No significant change from previous exam. External Record Review External record reviewed: Inpatient record Critical Care Time Critical Care Time Critical Care Time: Yes Total Critical Care Time: 60 Attestation: I have personally provided critical care time. Time includes review of lab data, radiology results, discussion with consultants, and monitoring for potential decompensation. Intervention performed as documented. Discharge Plan Discharge Clinical Impression: CHF exacerbation, Anasarca Patient Disposition: Admitted As Inpatient Print Language: B[place]udian
[2025-07-22 23:22] LABS: COVID-19 Test Negative (Negative); IDNOW Serial# 152EDE1D; IDNOW Serial# 16C4AD1C; Influenza B2 Negative (Negative)
[2025-07-23] VITALS (10 sets, daily range): BP systolic 90–114; BP diastolic 57–81; PULSE 81–106; RESP 10–26; TEMP 36.3–36.4; O2SAT 5–99; BMI 25.0
[2025-07-23] LABS: Alanine Aminotransferase 46 U/L (0-40); Albumin Level 3.4 g/dL (3.5-5.0); Alkaline Phosphatase 110 U/L (39-117); Anion Gap 10 (12-20); Aspartate Amino Transferase 35 U/L (5-37); Blood Urea Nitrogen 30 mg/dL (9-16); Calcium 8.9 mg/dL (8.4-10.2); Carbon Dioxide 22 mmol/L (22-29); Chloride 109 mmol/L (96-108); Creatinine Clr Calc Pharmacy 77.1; Estimated Glomerular Filt Rate > 60; Lipase 7 U/L (8-78); Potassium 5.0 mmol/L (3.3-5.1); Sodium 136 mmol/L (135-145); Total Protein 6.6 g/dL (6.5-8.0)
[2025-07-23 00:08] LABS: Troponin-I High Sensitivity 34.4 ng/L (<3.5-35.0)
[2025-07-23 00:20] LABS: Appearance Urine Clear; Glucose Urine UA >=1000 mg/dL (Negative); PH 6.0 (5.0-9.0); Specific Gravity - Urine >= 1.030 (1.005-1.025); UMIC TRIGGER UACC YES
[2025-07-23 00:29] LABS: NT Pro B Type Natriuretic Pept 12049.7 pg/mL (<300)
[2025-07-23] MEDS: Furosemide 40 MG/4 ML VIAL IVPUSH (01:28)
[2025-07-23 01:42] LABS: Cannabinoid Screen Urine POSITIVE (Not Detect)
--- NOTE | 2025-07-23 02:24 | P.HPHOSP_ITS ---
History of Present Illness Date of Service: 07/23/25 Attending physician on admission: Sandy Blunt Chief Complaint: Shortness of breath Laron Garcia is a 50 years old man with a past medical history significant for HFrEF (10-15%) status post AICD, cardiac arrest and AFib/a flutter on Eliquis was brought to the ED via ambulance complaining of worsening shortness on breath over the last week. He was recently admitted due to acute CHF. He also complex chest tightness, shortness on breath worse with exertion and dry cough. He also reports generalized weakness. Since recent discharge, he has been spending a lot of time in bed. He denied AICD firing. Denied tobacco smoking, alcohol abuse or illicit drug use, however his urine drug screen is positive for cocaine and marijuana. He said that he has been compliant with his medications. In the ED, in the ED he was found to have tachypnea. Other vital signs are normal. He is currently on supplemental oxygen via nasal cannula, 5 L/min. Blood workup showed leukocytosis of 11.3. Hemoglobin is 12.5 and platelets are 243. INR is 1.3. Blood workup showed no significant electrolyte imbalances. BUN is 30 and creatinine 1.12. LFTs remarkable for slight elevation of ALT only. Troponin is 34.4. Pro BNP is 12,049, much higher than prior. Albumin is 3.4. ED tx: Lasix 40 mg IV Review of Systems 2 Review of Systems: All 12 systems were reviewed and normal except as noted in HPI. [facility] Medical History Atrial fibrillation Paroxysmal A-fib Cardiomyopathy Atrial flutter Defibrillator discharge ICD (implantable cardioverter-defibrillator) malfunction Arrhythmia Systolic heart failure Cardiac defibrillator in place Ventricular fibrillation Polysubstance use disorder Social History Household Members: Family Housing: Apartment Housing Other:: homeless Do you presently have visiting nurse or other home services: No Alcohol intake: never Patient Tobacco Use Status: Current everyday Tobacco user Tobacco use type: Cigarette Cigarette Packs Per Day: 1 Cigarettes Per Day: 7 Years Smoked: 38 Smoked in Last 30 Days: Yes e-Cigarette/Vaping Use: Currently Using Second Hand Smoke Exposure: Yes Use of substances other than those prescribed or required for medical reasons: Yes Substance Use Type: Crack/Cocaine, Heroin and Marijuana Advance Directives: Yes Advance Directives on File: Yes Advance Directives Date on File: 12/26/23 Do you have a plan to hurt others: No Plan service: No Meds Allergies Allergy/AdvReac Type Severity Reaction Status Date / Time No Known Allergies Allergy Verified 07/22/25 22:33 Active Medications: Current Medications Acetaminophen (Acetaminophen 325 Mg Tablet) 650 mg PO Q6H PRN PRN Reason: Pain, Mild 1-3,fever,headache Calcium Carbonate (Calcium Carbonate 750 Mg Tab.Chew) 750 mg PO Q4H PRN PRN Reason: Heartburn Magnesium Hydroxide (Milk Of Magnesia 30 Ml Oral.Susp) 30 ml PO DAILY PRN PRN Reason: Constipation Melatonin (Melatonin 3 Mg Tablet) 6 mg PO BEDTIME PRN PRN Reason: Insomnia Sodium Chloride (0.9 % Sodium Chloride Flush 3 Ml Syringe) 3 ml IVFLUSH QSHIFT [facility] Physical Exam 2 Vital Signs and Narrative: Vital Signs: Last Vital Signs Temp 97.6 F 07/22/25 22:33 Pulse 96 07/23/25 01:34 Resp 26 H 07/23/25 01:34 BP 106/81 07/23/25 01:34 Pulse Ox 97 07/23/25 01:34 O2 Del Method Nasal Cannula 07/23/25 01:34 O2 Flow Rate 3 07/23/25 01:34 BMI result Body Mass Index 26.6 General: Alert, oriented, in no acute distress. Well nourished and cooperative. Afebrile. HEENT: Head normocephalic, atraumatic. PER, EOMI. Sclerae anicteric, conjunctiva clear. Oropharynx without erythema or exudate. Mucous membranes moist. Neck: Supple or JVD. Heart: RRR, no murmurs, rubs or gallops. Lungs: Bibasilar crackles.. No wheezes or rhonchi. Normal respiratory effort. Abdomen: Soft, non tenderness, nondistended, normoactive bowel sounds. No hepatosplenomegaly, masses or masses. Genital: Swollen scrotum. Extremities: Marked pitting edema to the lower extremities. Musculoskeletal: Full range of motion. No joint swelling, deformity, or tenderness. Normal muscle tone and strength. Skin: Warm/Dry. No pallor. No jaundice. Multiple tattoos. Neurologic: Alert & oriented x4. Moving all extremities spontaneously. Normal speech. Psychological: Normal mood and affect. Thought process coherent. Results Labs 07/22/25 22:38 07/22/25 23:33 Labs: Laboratory Results - last 24 hr 07/22/25 07/22/25 07/22/25 22:38 22:52 23:33 MCV 97.1 MCH 30.7 MCHC 31.6 RDW 14.8 Plt Count 243 MPV 10.1 Immature Gran % (Auto) 0.4 Neut % (Auto) 80.0 H Lymph % (Auto) 11.5 L [place] % (Auto) 5.9 Eos % (Auto) 1.8 Baso % (Auto) 0.4 Lymph # (Auto) 1.3 [place] # (Auto) 0.7 Eos # (Auto) 0.2 Baso # (Auto) 0.1 Abs Immat Gran (auto) 0.04 H Absolute Neuts (auto) 9.0 H Absolute Nucleated RBC 0.000 Nucleated RBC % (auto) 0.0 Anion Gap 10 L Estim Creat Clear Calc 77.1 Estimated GFR > 60 Random Glucose 109 Calcium 8.9 Total Bilirubin 0.6 AST 35 ALT 46 H Alkaline Phosphatase 110 Troponin I High Sens 34.4 D NT-Pro-B Natriuret Pep 55976.7 H Total Protein Albumin Lipase Urine Color Urine Appearance Urine pH Ur Specific [place] Urine Protein Urine Glucose (UA) Urine Ketones Urine Blood Urine Nitrite Ur Leukocyte Esterase Urine RBC Urine WBC Ur Squamous Epith Cells Urine Bacteria Hyaline Casts Urine Opiates Screen Ur Buprenorphine Scrn Ur Oxycodone Screen Urine Methadone Screen Urine Fentanyl Screen Ur Barbiturates Screen Ur Phencyclidine Scrn Ur Amphetamines Screen U Benzodiazepines Scrn Urine Cocaine Screen U Marijuana (THC) Screen COVID-19 (REJI) Negative COVID-19 Clin Com See Note Influenza Type A (CHRISTIN) Negative Influenza Type B (CHRISTIN) Negative Influenza A & B Note See Note 07/22/25 07/23/25 23:33 00:13 MCV MCH MCHC RDW Plt Count MPV Immature Gran % (Auto) Neut % (Auto) Lymph % (Auto) [place] % (Auto) Eos % (Auto) Baso % (Auto) Lymph # (Auto) [place] # (Auto) Eos # (Auto) Baso # (Auto) Abs Immat Gran (auto) Absolute Neuts (auto) Absolute Nucleated RBC Nucleated RBC % (auto) Anion Gap Estim Creat Clear Calc Estimated GFR Random Glucose Calcium Total Bilirubin AST ALT Alkaline Phosphatase Troponin I High Sens NT-Pro-B Natriuret Pep Cancelled Total Protein 6.6 Albumin 3.4 L Lipase 7 L Urine Color Yellow Urine Appearance Clear Urine pH 6.0 Ur Specific [place] >= 1.030 H Urine Protein 300 (3+) H Urine Glucose (UA) >=1000 H Urine Ketones Trace Urine Blood Negative Urine Nitrite Negative Ur Leukocyte Esterase Negative Urine RBC 0-2 Urine WBC 0-5 Ur Squamous Epith Cells 0-2 Urine Bacteria None Seen Hyaline Casts 0-2 Urine Opiates Screen Not Detected Ur Buprenorphine Scrn Not Detected Ur Oxycodone Screen Not Detected Urine Methadone Screen Not Detected Urine Fentanyl Screen Not Detected Ur Barbiturates Screen Not Detected Ur Phencyclidine Scrn Not Detected Ur Amphetamines Screen Not Detected U Benzodiazepines Scrn Not Detected Urine Cocaine Screen POSITIVE H U Marijuana (THC) Screen POSITIVE H COVID-19 (REJI) COVID-19 Clin Com Influenza Type A (CHRISTIN) Influenza Type B (CHRISTIN) Influenza A & B Note Assessment and Plan (1) Decompensated heart failure with reduced ejection fraction (HFrEF): Status: Acute (2) Anasarca: Status: Acute Plan Laron Garcia is a 50 y/o man with a PMHx significant for HFrEF (10- 15%), cardiac arrest s/p AICD and recent hospitalization due to acute CHF presents with: Acute hypoxic respiratory failure due to acute on chronic systolic CHF + anasarca. Telemetry. Pulse oximetry. Supplemental O2 to keep O2 sats > 90%. Start furosemide drip. Albumin IV. I&O. Low-salt diet. Daily weight. Continue Jardiance and Entresto. Paroxysmal atrial fibrillation, currently rate and rhythm controlled. Continue Eliquis. Hold beta-poppy for at least 24 hours -cocaine positive. Telemetry. Chest pain. Likely secondary to cocaine use. Troponin flat. COPD. Bronchodilator therapy as needed for wheezing. Cocaine abuse. Addiction medicine consult. med rec pending Code status: Full DVT prophylaxis: On Eliquis Patient will need hospitalization for at least 2 midnights for acute on chronic systolic congestive heart failure treatment with IV diuresis and supplemental oxygen. This documentation was generated using dictation software; minor spreading or exercise physiology professor errors may be present. Quality Stroke Does the patient have a stroke diagnosis?: No VTE Prior VTE?: No VTE Risk Level:: Medical - moderate - high VTE Device Contraindication: Treatment Not Indicated VTE Drug Contraindication: N/A - Med Ordered
--- NOTE | 2025-07-23 04:25 | PC.NURSE ---
Albumin drop just ended. RN to start lasik drip. pt output prior was 1000mLs. BP has been trending in the 90s- map over 60. MD aware.
[2025-07-23] MEDS: Furosemide 200 MG in 0.9 % Sodium Chloride 80 ML IVCONT (04:40)
--- NOTE | 2025-07-23 04:42 | HO.NURTONUR ---
Addendum entered by Sharonda Carranza RN 07/23/25 04:57: lasik drip currently paused. Pt still needed a second bag of albumin to infuse. Pt is a hard stick and currently only has access in the . RN to ask MD for an US line at some point. Albumin currently infusing. Original Note: 2 RNs verified rate and dose on the pump infusing lasik.
[2025-07-23] MEDS: Albumin Human 25 % 50 ML 100 ML IV ×2 (04:48→05:21)
[2025-07-23 06:39] LABS: Alanine Aminotransferase 37 U/L (0-40); Albumin Level 3.4 g/dL (3.5-5.0); Alkaline Phosphatase 95 U/L (39-117); Anion Gap 12 (12-20); Aspartate Amino Transferase 37 U/L (5-37); Blood Urea Nitrogen 29 mg/dL (9-16); Calcium 9.2 mg/dL (8.4-10.2); Carbon Dioxide 23 mmol/L (22-29); Chloride 108 mmol/L (96-108); Creatinine Clr Calc Pharmacy 85.5; Estimated Glomerular Filt Rate > 60; Magnesium 2.0 mg/dL (1.6-2.6); Potassium 4.5 mmol/L (3.3-5.1); Sodium 138 mmol/L (135-145); Total Protein 6.1 g/dL (6.5-8.0)
[2025-07-23 06:47] LABS: Troponin-I High Sensitivity 34.4 ng/L (<3.5-35.0)
[2025-07-23] MEDS: Sacubitril/Valsartan 49/51 1 TAB TABLET PO (08:01)
--- NOTE | 2025-07-23 08:15 | PC.NURSE ---
patient sleeping, woke to verbal stimulus, rr equal/non labored, lungs diminished throughout, rn cardiac nsr, vss, Lasix drip running per order, pt medicated per- order, denies pain, oob independently, call fernandez within reach, plan of care ongoing.
--- NOTE | 2025-07-23 08:20 | PHA.MEDREC ---
Pharmacy Consult ? Medication Reconciliation Pharmacy has completed the medication reconciliation. Spoke with patient at bedside, he showed me a list on his phone and denied taking Entresto. Looks like it was prescribed last visit here but never filled.
--- NOTE | 2025-07-23 10:34 | PM.EVENT ---
Event Note Date of Service: 07/23/25 Event Note: Progress note The patient was seen and evaluated, feels little better but still dyspniec with minimal exertion and reports SOB Still in fluid overload but making good amount of urine Most recent Echo from 05/2025 showing EF 10-15% with diastolic dysfunction Continue Lasix drip with goal _1-2L negative balance Restart Eliquis full dose Addiction team eval; advised to stop using drugs; he has been staying away from Heroin for 7 months and cutting down on Cocaine according to him Follow Electrolytes and BNP Time Spent With Patient Time: Total time managing care of this patient today ____ minutes.
--- NOTE | 2025-07-23 13:45 | PM.CNCAR ---
History of Present Illness History of Present Illness Date of Service: 07/23/25 Requesting physician: Ana Quiroz Chief complaint: Acute Hypoxic Resp. Failure, CHF Exacerbation Narrative: [age] year gentleman with polysubstance abuse including cocaine and severe cardiomyopathy and congestive heart failure. He is presenting again with shortness of breath and heart failure on background of drug abuse. He is positive for cocaine again. He is saying that he plans to quit and does not want to go to any rehab facility. He is complaining of shortness of breath. Saying that he has been taking medications regularly. [facility] Past Medical History Medical History Atrial fibrillation Paroxysmal A-fib Cardiomyopathy Atrial flutter Defibrillator discharge ICD (implantable cardioverter-defibrillator) malfunction Arrhythmia Systolic heart failure Cardiac defibrillator in place Ventricular fibrillation Polysubstance use disorder Social History Social History Household Members: Family Housing: Apartment Housing Other:: homeless Do you presently have visiting nurse or other home services: No Alcohol intake: never Patient Tobacco Use Status: Current everyday Tobacco user Tobacco use type: Cigarette Cigarette Packs Per Day: 1 Cigarettes Per Day: 7 Years Smoked: 38 Smoked in Last 30 Days: Yes e-Cigarette/Vaping Use: Currently Using Second Hand Smoke Exposure: Yes Use of substances other than those prescribed or required for medical reasons: Yes Substance Use Type: Crack/Cocaine, Heroin and Marijuana Advance Directives: Yes Advance Directives on File: Yes Advance Directives Date on File: 12/26/23 Do you have a plan to hurt others: No Plan service: No Meds Allergies Allergy/AdvReac Type Severity Reaction Status Date / Time No Known Allergies Allergy Verified 07/22/25 22:33 Active Medications: Current Medications Acetaminophen (Acetaminophen 325 Mg Tablet) 650 mg PO Q6H PRN PRN Reason: Pain, Mild 1-3,fever,headache Apixaban (Apixaban 5 Mg Tablet) 5 mg PO BID EDMUND Last Admin: 07/23/25 10:59 Dose: 5 mg Calcium Carbonate (Calcium Carbonate 750 Mg Tab.Chew) 750 mg PO Q4H PRN PRN Reason: Heartburn Empagliflozin (Empagliflozin 10 Mg Tablet) 10 mg PO DAILY EMDUND Furosemide 200 mg/ Sodium (Chloride) 100 mls @ 1 mls/hr IVCONT .Q24H [facility] Last Admin: 07/23/25 04:40 Dose: 2 mg/hr, 1 mls/hr Magnesium Hydroxide (Milk Of Magnesia 30 Ml Oral.Susp) 30 ml PO DAILY PRN PRN Reason: Constipation Melatonin (Melatonin 3 Mg Tablet) 6 mg PO BEDTIME PRN PRN Reason: Insomnia Sodium Chloride (0.9 % Sodium Chloride Flush 3 Ml Syringe) 3 ml IVFLUSH QSHIFT [facility] Last Admin: 07/23/25 07:56 Dose: Not Given Physical Exam Vital Signs: Vital Signs: Last Vital Signs Temp 97.6 F 07/23/25 08:14 Pulse 106 H 07/23/25 08:14 Resp 26 H 07/23/25 08:14 BP 110/73 07/23/25 08:14 Pulse Ox 99 07/23/25 08:14 O2 Del Method Nasal Cannula 07/23/25 08:14 O2 Flow Rate 2 07/23/25 08:14 BMI result Body Mass Index 26.6 GENERAL APPEARANCE: in no acute distress, pleasant. NECK: no carotid bruit, ++ jugular venous distention. SKIN: no suspicious lesions, warm and dry. HEART: no murmurs, regular rate and rhythm. LUNGS: clear to auscultation bilaterally. ABDOMEN: soft, nontender. EXTREMITIES: no edema. PERIPHERAL PULSES: equal. NEUROLOGIC: No gross deficits, AAO X 3 Objective Labs and Meds 07/22/25 22:38 07/23/25 06:15 Lab results: Laboratory Results - last 24 hr 07/22/25 07/22/25 07/22/25 22:38 22:52 23:33 WBC 11.3 H RBC 4.07 L Hgb 12.5 L Hct 39.5 L MCV 97.1 MCH 30.7 MCHC 31.6 RDW 14.8 Plt Count 243 MPV 10.1 Immature Gran % (Auto) 0.4 Neut % (Auto) 80.0 H Lymph % (Auto) 11.5 L [place] % (Auto) 5.9 Eos % (Auto) 1.8 Baso % (Auto) 0.4 Lymph # (Auto) 1.3 [place] # (Auto) 0.7 Eos # (Auto) 0.2 Baso # (Auto) 0.1 Abs Immat Gran (auto) 0.04 H Absolute Neuts (auto) 9.0 H Absolute Nucleated RBC 0.000 Nucleated RBC % (auto) 0.0 Sodium 136 Potassium 5.0 Chloride 109 H Carbon Dioxide 22 Anion Gap 10 L BUN 30 H Creatinine 1.12 Estim Creat Clear Calc 77.1 Estimated GFR > 60 Random Glucose 109 Calcium 8.9 Magnesium Total Bilirubin 0.6 AST 35 ALT 46 H Alkaline Phosphatase 110 Troponin I High Sens 34.4 D NT-Pro-B Natriuret Pep 88561.7 H Total Protein Albumin Lipase Urine Color Urine Appearance Urine pH Ur Specific [place] Urine Protein Urine Glucose (UA) Urine Ketones Urine Blood Urine Nitrite Ur Leukocyte Esterase Urine RBC Urine WBC Ur Squamous Epith Cells Urine Bacteria Hyaline Casts Urine Opiates Screen Ur Buprenorphine Scrn Ur Oxycodone Screen Urine Methadone Screen Urine Fentanyl Screen Ur Barbiturates Screen Ur Phencyclidine Scrn Ur Amphetamines Screen U Benzodiazepines Scrn Urine Cocaine Screen U Marijuana (THC) Screen COVID-19 (REJI) Negative COVID-19 Clin Com See Note Influenza Type A (CHRISTIN) Negative Influenza Type B (CHRISTIN) Negative Influenza A & B Note See Note 07/22/25 07/23/25 07/23/25 23:33 00:13 06:15 WBC RBC Hgb Hct MCV MCH MCHC RDW Plt Count MPV Immature Gran % (Auto) Neut % (Auto) Lymph % (Auto) [place] % (Auto) Eos % (Auto) Baso % (Auto) Lymph # (Auto) [place] # (Auto) Eos # (Auto) Baso # (Auto) Abs Immat Gran (auto) Absolute Neuts (auto) Absolute Nucleated RBC Nucleated RBC % (auto) Sodium 138 Potassium 4.5 Chloride 108 Carbon Dioxide 23 Anion Gap 12 BUN 29 H Creatinine 1.01 Estim Creat Clear Calc 85.5 Estimated GFR > 60 Random Glucose 103 Calcium 9.2 Magnesium 2.0 Total Bilirubin 0.7 AST 37 ALT 37 Alkaline Phosphatase 95 Troponin I High Sens 34.4 NT-Pro-B Natriuret Pep Cancelled Total Protein 6.6 6.1 L Albumin 3.4 L 3.4 L Lipase 7 L Urine Color Yellow Urine Appearance Clear Urine pH 6.0 Ur Specific [place] >= 1.030 H Urine Protein 300 (3+) H Urine Glucose (UA) >=1000 H Urine Ketones Trace Urine Blood Negative Urine Nitrite Negative Ur Leukocyte Esterase Negative Urine RBC 0-2 Urine WBC 0-5 Ur Squamous Epith Cells 0-2 Urine Bacteria None Seen Hyaline Casts 0-2 Urine Opiates Screen Not Detected Ur Buprenorphine Scrn Not Detected Ur Oxycodone Screen Not Detected Urine Methadone Screen Not Detected Urine Fentanyl Screen Not Detected Ur Barbiturates Screen Not Detected Ur Phencyclidine Scrn Not Detected Ur Amphetamines Screen Not Detected U Benzodiazepines Scrn Not Detected Urine Cocaine Screen POSITIVE H U Marijuana (THC) Screen POSITIVE H COVID-19 (REJI) COVID-19 Clin Com Influenza Type A (CHRISTIN) Influenza Type B (CHRISTIN) Influenza A & B Note Assessment and Plan (1) Decompensated heart failure with reduced ejection fraction (HFrEF): Status: Acute Plan 50-year-old gentleman with decompensated congestive heart failure on background of systolic dysfunction due to cocaine use. He unfortunately continues to use cocaine. Once again he has been advised that he needs to stop using drugs. Offered him that he can go into drug rehab but he is saying that he will take care of it himself. I have explained to him that he has been failing to be clean and unfortunately has advanced heart problems. Overall he appears to be not in favor of any inpatient detox etcetera. Clinically volume overloaded. Agree with IV diuretics at this point. Start carvedilol at 3.125 mg twice a day. Can start losartan 25 mg daily. We will avoid Entresto because I am not sure whether he is able to afford it and will take it. Thank you for allowing me to participate in the care of your patient. Please feel free to contact me if you have any questions. Procedures Date of Service Date of Service: 07/23/25
--- NOTE | 2025-07-23 18:22 | HO.NURTONUR ---
patient a&ox3 irish speaking, independent in room- comes from home with increased shortness of breath, as the night went on last night patient began desatting and was placed on Oxygen has been titrating down- presently on 2L NC, lasix drip running at 2mg/hr, pt has great urine output today, BNP was 52987.7, tropsx2 34.4 and pt drug tox he was positive for cocain and marijuana. vitals have been stable, radiographer cardiac catheterization nsr. Pt does have an ICD. Has addiction medicine consult.
--- NOTE | 2025-07-23 19:37 | PC.NURSE ---
transport here to take patient upstairs, left department in stable condition at this time
[2025-07-24] VITALS (7 sets, daily range): BP systolic 91–138; BP diastolic 56–96; PULSE 73–98; RESP 16–20; TEMP 36.4–37.2; O2SAT 93–99
--- NOTE | 2025-07-24 00:16 | PC.NURSE ---
07/23/25 Nursing Note: 193 Received notification patient coming to the unit. Patient arrived upset that he has not been provided with a meal. [place], pudding, applesauce and cranberry juice provided per patient request to eat. Pt alert oriented x4. Pt primarily Monegasque speaking and Door Closer utilized in education patient to room, call button fall safety, Lasix drip and plan of care. Family came to visit and provided patient with additional food. Pt on RA with bilateral basilar rales present but reports no SOB. Refer to admission assessment for details. Pt does not want to be on bedrest and reports he will bet OOB and ambulate to the bathroom when he needs to urinate . Pt agreeable to using the urinal to accurately measure output.
[2025-07-24 07:36] LABS: MANUAL DIFF FLAG NO
[2025-07-24 07:38] LABS: Hematocrit 39.8 % (42.0-52.0); Hemoglobin 12.7 g/dl (14.0-18.0); Imm Gran Abs Auto 0.02 X10*3/uL (0.00-0.03); Imm Gran Pct Auto 0.3 % (0.0-0.4); Lymphocytes Absolute Auto 1.5 X10*3/uL (1.2-4.9); Mean Corpuscular HGB Conc 31.9 g/dl (31.0-36.0); Mean Corpuscular Hemoglobin 30.9 pg (27.0-33.0); Mean Corpuscular Volume 96.8 fL (80.0-98.0); NRBC Abs Auto 0.000 X10*3/uL (0.0-0.012); NRBC Pct Auto 0.0 /100WBC (0.0-0.2); Platelet Count 212 X10*3/uL (160-400); Red Blood Count 4.11 X10*6/uL (4.60-5.80); White Blood Count 7.7 X10*3/uL (4.8-10.8)
[2025-07-24 07:54] LABS: Anion Gap 11 (12-20); Blood Urea Nitrogen 30 mg/dL (9-16); Calcium 8.4 mg/dL (8.4-10.2); Carbon Dioxide 27 mmol/L (22-29); Chloride 108 mmol/L (96-108); Creatinine Clr Calc Pharmacy 73.8; Estimated Glomerular Filt Rate > 60; Potassium 4.2 mmol/L (3.3-5.1); Sodium 142 mmol/L (135-145)
[2025-07-24 08:03] LABS: NT Pro B Type Natriuretic Pept 4469.8 pg/mL (<300)
--- NOTE | 2025-07-24 12:47 | MHC.CM.PN ---
CM MET WITH PT WITH THE ASSISTANCE OF A [facility] [employer] PT REPORTS HE LIVES WITH HIS COUSIN AND HOUSING IS STABLE HE IS INDEPENDENT WITH CARE AND HAS NO DME PT STATES HE DOES NOT WANT TO COMPLETE A NEW HCP, THE ONE ON FILE IS NO LONGER VALID PT STATES HE USES [facility] BUT DOES NOT HAVE AN ASSIGNED PCP DCP: HOME NO SERVICES VIA [facility]
--- NOTE | 2025-07-24 14:28 | P.PNIM_ITS ---
Subjective Subjective Date of Service: 07/24/25 Interval History: Seen and evaluated this morning feels mild improvement but not back to baseline no fever or chills -1640 ml overnight Review of Systems Review of Systems: Yes all other systems are reviewed and are negative Physical Exam 2 Vital Signs: Vital Signs: Last Vital Signs Temp 97.8 F 07/24/25 11:19 Pulse 95 07/24/25 11:19 Resp 20 07/24/25 11:19 BP 108/71 07/24/25 11:19 Pulse Ox 97 07/24/25 11:19 O2 Del Method Room Air 07/24/25 11:19 O2 Flow Rate 2 07/23/25 08:14 BMI result Body Mass Index 25.0 Const: Other: Constitutional : Awake, interactive, not in distress Neck : Normal inspection, Supple Cardiovascular : RRR, no JVP, trace lower extremity edema Respiratory : good bilateral air entry, fine basal bilateral crackles, wheezes or rhonchi Gastrointestinal: soft, lax, Normal bowel sounds, Non tender Skin : Warm, Dry Neurological : Alert & oriented x3, No focal deficit Objective Data Active Medications Acetaminophen (Acetaminophen 325 Mg Tablet) 650 mg PO Q6H PRN PRN Reason: Pain, Mild 1-3,fever,headache Apixaban (Apixaban 5 Mg Tablet) 5 mg PO BID [facility] Last Admin: 07/24/25 08:54 Dose: 5 mg Documented By: DINA Calcium Carbonate (Calcium Carbonate 750 Mg Tab.Chew) 750 mg PO Q4H PRN PRN Reason: Heartburn Empagliflozin (Empagliflozin 10 Mg Tablet) 10 mg PO DAILY [facility] Last Admin: 07/24/25 08:54 Dose: 10 mg Documented By: DINA Furosemide 200 mg/ Sodium (Chloride) 100 mls @ 1 mls/hr IVCONT .Q24H [facility] Last Admin: 07/24/25 12:15 Dose: Not Given Documented By: JACE Non-Admin Reason: IV Running Magnesium Hydroxide (Milk Of Magnesia 30 Ml Oral.Susp) 30 ml PO DAILY PRN PRN Reason: Constipation Melatonin (Melatonin 3 Mg Tablet) 6 mg PO BEDTIME PRN PRN Reason: Insomnia Sodium Chloride (0.9 % Sodium Chloride Flush 3 Ml Syringe) 3 ml IVFLUSH QSHIFT [facility] Last Admin: 07/24/25 08:55 Dose: Not Given Documented By: DINA Non-Admin Reason: IV Running Labs 07/24/25 06:48 07/24/25 06:48 Labs: Laboratory Results - last 24 hr 07/24/25 06:48 MCV 96.8 MCH 30.9 MCHC 31.9 RDW 14.8 Plt Count 212 MPV 10.7 Immature Gran % (Auto) 0.3 Neut % (Auto) 60.1 Lymph % (Auto) 19.4 L [place] % (Auto) 7.9 Eos % (Auto) 11.4 H Baso % (Auto) 0.9 Lymph # (Auto) 1.5 [place] # (Auto) 0.6 Eos # (Auto) 0.9 H Baso # (Auto) 0.1 Abs Immat Gran (auto) 0.02 Absolute Neuts (auto) 4.7 Absolute Nucleated RBC 0.000 Nucleated RBC % (auto) 0.0 Anion Gap 11 L Estim Creat Clear Calc 73.8 Estimated GFR > 60 Random Glucose 108 Calcium 8.4 D NT-Pro-B Natriuret Pep 4469.8 H Assessment and Plan (1) CHF (congestive heart failure): Status: Acute (2) Decompensated heart failure with reduced ejection fraction (HFrEF): Status: Acute (3) CHF exacerbation: Status: Acute Plan Laron Garcia is a 50 y/o man with a PMHx significant for HFrEF (10- 15%), cardiac arrest s/p AICD and recent hospitalization due to acute CHF presents with: Acute hypoxic respiratory failure due to acute on chronic systolic CHF + anasarca. Telemetry. Pulse oximetry. Supplemental O2 to keep O2 sats > 90%. Continue furosemide drip. I&O. Low-salt diet. Daily weight. Continue Jardiance and hold Entresto given soft BP Cardiology input appreciated Paroxysmal atrial fibrillation, currently rate and rhythm controlled. Continue Eliquis. Hold beta-poppy soft BP and recent Cocaine usage Chest pain. Likely secondary to cocaine use. resolved Troponin flat with no acute EKG changes COPD. Bronchodilator therapy as needed for wheezing. Cocaine abuse. Addiction medicine consult. Code status: Full DVT prophylaxis: On Eliquis Patient will need hospitalization overnight for acute on chronic systolic congestive heart failure treatment with IV diuresis and supplemental oxygen. Quality Stroke Does the patient have a stroke diagnosis?: No VTE Prior VTE?: No VTE Risk Level:: Medical - moderate - high VTE Device Contraindication: Treatment Not Indicated VTE Drug Contraindication: N/A - Med Ordered
--- NOTE | 2025-07-24 15:10 | PC.NURSE ---
Patient ripped off IV and tele monitor out yelling I'm getting into the shower and slam door in my face . this nurse educated the patient about the risk off falling and needing the IV on. Notified the MD.
[2025-07-24] MEDS: 0.9 % Sodium Chloride Flush 3 ML SYRINGE IVFLUSH (21:44)
[2025-07-24] MEDS: Magnesium Sulfate/H2O 2 GM/50 ML PIGGYBACK IV (21:44)
[2025-07-25 03:46] VITALS: BP 116/72; PULSE 58; RESP 16; TEMP 36.8; O2SAT 95
[2025-07-25] MEDS: Furosemide 200 MG in 0.9 % Sodium Chloride 80 ML IVCONT (06:03)
[2025-07-25 06:25] LABS: MANUAL DIFF FLAG NO
[2025-07-25 06:28] LABS: Hematocrit 39.0 % (42.0-52.0); Hemoglobin 12.1 g/dl (14.0-18.0); Imm Gran Abs Auto 0.01 X10*3/uL (0.00-0.03); Imm Gran Pct Auto 0.1 % (0.0-0.4); Lymphocytes Absolute Auto 1.8 X10*3/uL (1.2-4.9); Mean Corpuscular HGB Conc 31.0 g/dl (31.0-36.0); Mean Corpuscular Hemoglobin 30.3 pg (27.0-33.0); Mean Corpuscular Volume 97.7 fL (80.0-98.0); NRBC Abs Auto 0.000 X10*3/uL (0.0-0.012); NRBC Pct Auto 0.0 /100WBC (0.0-0.2); Platelet Count 229 X10*3/uL (160-400); Red Blood Count 3.99 X10*6/uL (4.60-5.80); White Blood Count 7.6 X10*3/uL (4.8-10.8)
[2025-07-25 06:43] LABS: Anion Gap 10 (12-20); Blood Urea Nitrogen 29 mg/dL (9-16); Calcium 8.4 mg/dL (8.4-10.2); Carbon Dioxide 25 mmol/L (22-29); Chloride 108 mmol/L (96-108); Creatinine Clr Calc Pharmacy 87.2; Estimated Glomerular Filt Rate > 60; Potassium 4.0 mmol/L (3.3-5.1); Sodium 139 mmol/L (135-145)
[2025-07-25 06:51] LABS: NT Pro B Type Natriuretic Pept 4653.4 pg/mL (<300)
[2025-07-25 07:34] VITALS: BP 105/80; PULSE 77; RESP 20; TEMP 36.8; O2SAT 95
[2025-07-25] MEDS: 0.9 % Sodium Chloride Flush 3 ML SYRINGE IVFLUSH ×2 (08:11→19:31)
--- NOTE | 2025-07-25 11:04 | PM.EVENT ---
Event Note Date of Service: 07/25/25 Event Note: addiction consult placed for patient with cocaine use disorder Seen by Recover RN, declined intervention or follow up please see RN note for details Time Spent With Patient Time: Total time managing care of this patient today ____ minutes.
--- NOTE | 2025-07-25 11:50 | P.PNCA_ITS ---
Subjective Subjective Date of Service: 07/25/25 Principal diagnosis: Decompensated congestive heart failure, nonsustained VT. Interval history: Patient comes back to the hospital with decompensated congestive heart failure due to noncompliance. Unfortunately patient continues to use cocaine which limits his treatment options. Also noncompliant with recommendations in the hospital. Not sure if he takes any of his medications when he is discharge. Review of Systems Constitutional: Reports weakness Cardiovascular: Denies chest pain at rest, Denies rapid heart rate, Reports leg edema, Denies lightheadedness, Denies palpitations, Reports dyspnea on exertion and Reports orthopnea Respiratory: Reports no additional respiratory complaints and Reports dyspnea on exertion Genitourinary: Reports no additional male genitourinary complaints Musculoskeletal: Reports no additional musculoskeletal complaints Skin/Breast: Reports system reviewed and no additional complaints, except as docu Reports weakness Endocrine: Denies palpitations Physical Exam Vital Signs: Last Vital Signs Temp 98.2 F 07/25/25 07:34 Pulse 77 07/25/25 07:34 Resp 20 07/25/25 07:34 BP 105/80 07/25/25 07:34 Pulse Ox 95 07/25/25 07:34 O2 Del Method Room Air 07/25/25 07:34 O2 Flow Rate 2 07/23/25 08:14 BMI result Body Mass Index 25.0 GENERAL APPEARANCE: in no acute distress, pleasant. NECK: no carotid bruit, ++ jugular venous distention. SKIN: no suspicious lesions, warm and dry. HEART: no murmurs, regular rate and rhythm. LUNGS: clear to auscultation bilaterally. ABDOMEN: soft, nontender. EXTREMITIES: no edema. PERIPHERAL PULSES: equal. NEUROLOGIC: No gross deficits, AAO X 3 Objective Labs and Meds 07/25/25 06:04 07/25/25 06:03 Lab results: Laboratory Results - last 24 hr 07/25/25 07/25/25 06:03 06:04 WBC 7.6 RBC 3.99 L Hgb 12.1 L Hct 39.0 L MCV 97.7 MCH 30.3 MCHC 31.0 RDW 14.9 Plt Count 229 MPV 10.2 Immature Gran % (Auto) 0.1 Neut % (Auto) 52.5 Lymph % (Auto) 23.7 [place] % (Auto) 8.8 Eos % (Auto) 14.0 H Baso % (Auto) 0.9 Lymph # (Auto) 1.8 [place] # (Auto) 0.7 Eos # (Auto) 1.1 H Baso # (Auto) 0.1 Abs Immat Gran (auto) 0.01 Absolute Neuts (auto) 4.0 Absolute Nucleated RBC 0.000 Nucleated RBC % (auto) 0.0 Sodium 139 Potassium 4.0 Chloride 108 Carbon Dioxide 25 Anion Gap 10 L BUN 29 H Creatinine 0.99 Estim Creat Clear Calc 87.2 Estimated GFR > 60 Random Glucose 98 Calcium 8.4 NT-Pro-B Natriuret Pep 4653.4 H Progress Note: A&P Assessment and plan (1) CHF exacerbation: Status: Acute Assessment and Plan: Decompensated congestive heart failure again with poor compliance and continue use of cocaine. Discussed with patient that he has overall very poor prognosis if he continues with his behavior. Unfortunately he does not seem to comprehend. His medical therapy has been restarted. Continue IV diuresis. Try to optimize his guideline based medical therapy although not sure what the long- term use of this is if he remains noncompliant with medications. Strict intake and output chart needs to be pursued. Continue monitor electrolytes and renal function. (2) Ventricular fibrillation: Status: Acute Assessment and Plan: Patient with multiple runs of nonsustained VT and remains at high risk for ventricular tachycardia including sustained and fibrillation that may require ICD therapy. Avoidance of use of cocaine was discussed. Restart carvedilol therapy. Will follow with you Time Spent With Patient Time: Total time managing care of this patient today ____ minutes. Progress Note: Quality Stroke Does the patient have a stroke diagnosis?: No Procedures Date of Service Date of Service: 07/25/25
[2025-07-25 12:00] VITALS: BP 118/82; PULSE 98; RESP 20; TEMP 36.6; O2SAT 97
--- NOTE | 2025-07-25 14:45 | MHC.CM.PN ---
EMR REVIEWED AND PER MD ROUNDS, PATIENT IS NOT MEDICALLY CLEARED FOR DISCHARGE DUE TO MANAGEMENT OF CHF, ON IV LASIX GTT.
[2025-07-25 15:57] VITALS: BP 116/78; PULSE 105; RESP 20; TEMP 36.6; O2SAT 98
[2025-07-25 19:05] VITALS: BP 103/70; PULSE 104; RESP 18; TEMP 36.6; O2SAT 97
--- NOTE | 2025-07-25 19:05 | HO.PM.IMPN ---
Subjective Subjective Date of Service: 07/25/25 Interval History: Reports feels fine SOB and LLE about the same as yesterday Had non-sustained runs of VT overnight Denies CP/pressure Review of Systems Review of Systems: Yes all other systems are reviewed and are negative Physical Exam Exam: Exam: General: AOx3, no acute distress Resp: CTA bilaterally CVS: S1, S2, RRR GI: +BS, NT, no distention Skin: Warm, dry Neuro: Cranial nerves II-XII grossly intact bilaterally. Motor grossly intact bilaterally Extremities: 1+ pitting lower leg edema Psych: Appropriate affect Vital Signs: Vital Signs: Last Vital Signs Temp 97.9 F 07/25/25 15:57 Pulse 105 H 07/25/25 15:57 Resp 20 07/25/25 15:57 BP 116/78 07/25/25 15:57 Pulse Ox 98 07/25/25 15:57 O2 Del Method Room Air 07/25/25 15:57 O2 Flow Rate 2 07/23/25 08:14 BMI result Body Mass Index 25.0 Objective Data Active Medications Acetaminophen (Acetaminophen 325 Mg Tablet) 650 mg PO Q6H PRN PRN Reason: Pain, Mild 1-3,fever,headache Last Admin: 07/24/25 23:26 Dose: 650 mg Documented By: FELIPE Apixaban (Apixaban 5 Mg Tablet) 5 mg PO BID [facility] Last Admin: 07/25/25 08:11 Dose: 5 mg Documented By: CAROLE Calcium Carbonate (Calcium Carbonate 750 Mg Tab.Chew) 750 mg PO Q4H PRN PRN Reason: Heartburn Empagliflozin (Empagliflozin 10 Mg Tablet) 10 mg PO DAILY [facility] Last Admin: 07/25/25 08:11 Dose: 10 mg Documented By: CAROLE Furosemide 200 mg/ Sodium (Chloride) 100 mls @ 1 mls/hr IVCONT .Q24H [facility] Last Admin: 07/25/25 06:03 Dose: 2 mg/hr, 1 mls/hr Documented By: FELIPE Magnesium Hydroxide (Milk Of Magnesia 30 Ml Oral.Susp) 30 ml PO DAILY PRN PRN Reason: Constipation Melatonin (Melatonin 3 Mg Tablet) 6 mg PO BEDTIME PRN PRN Reason: Insomnia Last Admin: 07/24/25 23:25 Dose: 6 mg Documented By: FELIPE Sodium Chloride (0.9 % Sodium Chloride Flush 3 Ml Syringe) 3 ml IVFLUSH QSHIFT EDMUND Last Admin: 07/25/25 08:11 Dose: 3 ml Documented By: CAROLE Labs 07/25/25 06:04 07/25/25 06:03 Labs: Laboratory Results - last 24 hr 07/25/25 07/25/25 06:03 06:04 MCV 97.7 MCH 30.3 MCHC 31.0 RDW 14.9 Plt Count 229 MPV 10.2 Immature Gran % (Auto) 0.1 Neut % (Auto) 52.5 Lymph % (Auto) 23.7 [place] % (Auto) 8.8 Eos % (Auto) 14.0 H Baso % (Auto) 0.9 Lymph # (Auto) 1.8 [place] # (Auto) 0.7 Eos # (Auto) 1.1 H Baso # (Auto) 0.1 Abs Immat Gran (auto) 0.01 Absolute Neuts (auto) 4.0 Absolute Nucleated RBC 0.000 Nucleated RBC % (auto) 0.0 Anion Gap 10 L Estim Creat Clear Calc 87.2 Estimated GFR > 60 Random Glucose 98 Calcium 8.4 NT-Pro-B Natriuret Pep 4653.4 H Assessment and Plan (1) Decompensated heart failure with reduced ejection fraction (HFrEF): Status: Acute Plan Laron Garcia is a 50 y/o man with a PMHx significant for HFrEF (10-15%), cardiac arrest s/p AICD and recent hospitalization due to acute CHF presents with: Acute hypoxic respiratory failure due to acute on chronic systolic CHF + anasarca. Telemetry. Pulse oximetry. Supplemental O2 to keep O2 sats > 90%, has been weaned off O2 Continue furosemide drip; diuresed 4.5L total Monitor I&O; low-salt diet. Daily weight. Continue Jardiance and hold Entresto given soft BP Cardiology following, will restart cavedilol therapy Paroxysmal atrial fibrillation, Currently rate and rhythm controlled. Continue Eliquis. Hold beta-poppy soft BP and recent Cocaine usage Chest pain. Likely secondary to cocaine use. resolved Troponin flat with no acute EKG changes COPD. Bronchodilator therapy as needed for wheezing. Cocaine abuse. Addiction medicine consult. Code status: Full DVT prophylaxis: On Eliquis Patient will need hospitalization overnight for acute on chronic systolic congestive heart failure treatment with IV diuresis drip and close monitoring of labs. Quality Stroke Does the patient have a stroke diagnosis?: No VTE Prior VTE?: No VTE Risk Level:: Medical - moderate - high VTE Device Contraindication: Treatment Not Indicated VTE Drug Contraindication: N/A - Med Ordered
[2025-07-25 22:52] VITALS: BP 96/64; PULSE 109; RESP 18; TEMP 36.6; O2SAT 96
[2025-07-26] VITALS (8 sets, daily range): BP systolic 90–139; BP diastolic 65–87; PULSE 61–104; RESP 16–18; TEMP 36.1–36.6; O2SAT 95–98
--- NOTE | 2025-07-26 | ECG_ITS ---
Test Reason : pain Blood Pressure : */* mmHG Vent. Rate : 96 BPM Atrial Rate : 96 BPM P-R Int : 112 ms QRS Dur : 104 ms QT Int : 390 ms P-R-T Axes : 99 -5 174 degrees QTcB Int : 492 ms Normal sinus rhythm Possible Left atrial enlargement Minimal voltage criteria for LVH, may be normal variant ( [place] product ) T wave abnormality, consider lateral ischemia Prolonged QT Abnormal ECG When compared with ECG of 22-Jul-2025 22:37, No significant change was found Referred By: Roderick Buenrostro Electronically Signed By: GAIL BANERJEE MD
[2025-07-26 04:04] LABS: Troponin-I High Sensitivity 21.2 ng/L (<3.5-35.0)
[2025-07-26] MEDS: Furosemide 200 MG in 0.9 % Sodium Chloride 80 ML IVCONT (05:31)
[2025-07-26 06:35] LABS: Troponin-I High Sensitivity 23.1 ng/L (<3.5-35.0)
[2025-07-26] MEDS: 0.9 % Sodium Chloride Flush 3 ML SYRINGE IVFLUSH ×3 (09:11→20:54)
--- NOTE | 2025-07-26 11:55 | PM.PNCARD ---
Subjective Subjective Date of Service: 07/26/25 Principal diagnosis: Decompensated congestive heart failure, nonsustained VT. Interval history: Patient still remains fluid overloaded. Remains difficult for nursing care. Overall negative balance of 1500 cc. No significant ventricular arrhythmias noted. No ICD discharge. Still remains short of breath. Still has leg edema. Review of Systems Constitutional: Reports no additional constitutional complaints Cardiovascular: Denies chest pain, Denies rapid heart rate, Reports leg edema, Denies lightheadedness and Reports dyspnea Respiratory: Reports no additional respiratory complaints and Reports dyspnea Gastrointestinal: Reports no additional gastrointestinal complaints Physical Exam Vital Signs: Last Vital Signs Temp 97.1 F 07/26/25 11:12 Pulse 66 07/26/25 11:12 Resp 18 07/26/25 11:12 BP 105/71 07/26/25 11:12 Pulse Ox 96 07/26/25 11:12 O2 Del Method Room Air 07/26/25 11:12 O2 Flow Rate 2 07/23/25 08:14 BMI result Body Mass Index 25.0 GENERAL APPEARANCE: in no acute distress, pleasant. NECK: no carotid bruit, ++ jugular venous distention. SKIN: no suspicious lesions, warm and dry. HEART: no murmurs, regular rate and rhythm. LUNGS: clear to auscultation bilaterally. ABDOMEN: soft, nontender. EXTREMITIES: no edema. PERIPHERAL PULSES: equal. NEUROLOGIC: No gross deficits, AAO X 3 Objective Labs and Meds 07/25/25 06:04 07/25/25 06:03 Lab results: Laboratory Results - last 24 hr 07/26/25 07/26/25 03:34 06:02 Hold Purple Top SEE NOTE Troponin I High Sens 21.2 23.1 Progress Note: A&P Assessment and plan (1) Decompensated heart failure with reduced ejection fraction (HFrEF): Status: Acute Assessment and Plan: Decompensated congestive heart failure in this middle-aged noncompliant patient with active cocaine use disorder for which she is denying treatment or detoxification. This will lead to significant impaired treatment plan and follow-ups. Continued use of cocaine in his going to increase his risk of developing further cardiomyopathy and ventricular arrhythmias and possible early that. This was discussed with him. He seems to comprehend what I am telling him but not sure if he understands long-term implications. For now he is on carvedilol, Jardiance therapy. Blood pressure is on the lower side not sure if he will be able to add any other vasodilators therapy at this point time. Continue diuresis but can be switch to IV boluses with Lasix 40 mg b.i.d.. Strict intake and output chart needs to be pursued. Overall prognosis is poor. Will follow with you Time Spent With Patient Time: Total time managing care of this patient today ____ minutes. Progress Note: Quality Stroke Does the patient have a stroke diagnosis?: No Procedures Date of Service Date of Service: 07/26/25
--- NOTE | 2025-07-26 17:06 | HO.PM.IMPN ---
Subjective Subjective Date of Service: 07/26/25 Interval History: Continues to experience SOB and difficulty breathing both at rest and with movement No significant improvements with symptoms No acute events overnight Denies chest pain or pressure No palpitations Review of Systems Review of Systems: Yes all other systems are reviewed and are negative Physical Exam Exam: Exam: General: AOx3, no acute distress Resp: Bibasilar crackles CVS: S1, S2, RRR GI: +BS, NT, no distention Skin: Warm, dry Neuro: Cranial nerves II-XII grossly intact bilaterally. Motor grossly intact bilaterally Extremities: 1+ bilateral pitting edema Psych: Appropriate affect Vital Signs: Vital Signs: Last Vital Signs Temp 97.8 F 07/26/25 15:41 Pulse 98 07/26/25 15:41 Resp 16 07/26/25 15:41 BP 139/67 07/26/25 15:41 Pulse Ox 98 07/26/25 15:41 O2 Del Method Room Air 07/26/25 15:41 O2 Flow Rate 2 07/23/25 08:14 BMI result Body Mass Index 25.0 Objective Data Active Medications Acetaminophen (Acetaminophen 325 Mg Tablet) 650 mg PO Q6H PRN PRN Reason: Pain, Mild 1-3,fever,headache Last Admin: 07/24/25 23:26 Dose: 650 mg Documented By: FELIPE Apixaban (Apixaban 5 Mg Tablet) 5 mg PO BID [facility] Last Admin: 07/26/25 09:09 Dose: 5 mg Documented By: GET Calcium Carbonate (Calcium Carbonate 750 Mg Tab.Chew) 750 mg PO Q4H PRN PRN Reason: Heartburn Carvedilol (Carvedilol 6.25 Mg Tablet) 6.25 mg PO BID [facility]; Protocol Last Admin: 07/26/25 09:09 Dose: 6.25 mg Documented By: GET Empagliflozin (Empagliflozin 10 Mg Tablet) 10 mg PO DAILY [facility] Last Admin: 07/26/25 09:09 Dose: 10 mg Documented By: GET Furosemide (Furosemide 40 Mg/4 Ml Vial) 40 mg IVPUSH BID@0900,1800 [facility]; Protocol Magnesium Hydroxide (Milk Of Magnesia 30 Ml Oral.Susp) 30 ml PO DAILY PRN PRN Reason: Constipation Melatonin (Melatonin 3 Mg Tablet) 6 mg PO BEDTIME PRN PRN Reason: Insomnia Last Admin: 07/24/25 23:25 Dose: 6 mg Documented By: FELIPE Nitroglycerin (Nitroglycerin 0.4 Mg Tab.Subl) 0.4 mg SUBLINGUAL Q5MX3 PRN PRN Reason: Chest Pain Last Admin: 07/26/25 03:14 Dose: 0.4 mg Documented By: KIERSTEN Sodium Chloride (0.9 % Sodium Chloride Flush 3 Ml Syringe) 3 ml IVFLUSH QSHIFT EDMUND Last Admin: 07/26/25 09:11 Dose: 3 ml Documented By: FOSTEKR Labs 07/25/25 06:04 07/25/25 06:03 Labs: Laboratory Results - last 24 hr 07/26/25 07/26/25 03:34 06:02 Hold Purple Top SEE NOTE Troponin I High Sens 21.2 23.1 Assessment and Plan (1) Decompensated heart failure with reduced ejection fraction (HFrEF): Status: Acute Plan Laron Garcia is a 50 y/o man with a PMHx significant for HFrEF (10-15%), cardiac arrest s/p AICD and recent hospitalization due to acute CHF presents with: Acute hypoxic respiratory failure due to acute on chronic systolic CHF + anasarca. Supplemental O2 to keep O2 sats > 90%, has been weaned off O2 Furosemide drip stopped, switched to 40mg IV bid; diuresed 5.8L total Monitor I&O; low-salt diet. Daily weight. Continue Jardiance and carvedilol Cardiology following Monitor on telemetry Paroxysmal atrial fibrillation, Currently rate and rhythm controlled. Continue Eliquis. Hold beta-poppy soft BP and recent Cocaine usage Chest pain. Likely secondary to cocaine use. resolved Troponin flat with no acute EKG changes COPD. Bronchodilator therapy as needed for wheezing. Cocaine abuse. Addiction medicine consult. Code status: Full DVT prophylaxis: On Eliquis Patient will need hospitalization overnight for acute on chronic systolic congestive heart failure treatment with IV diuresising and close monitoring of labs. Quality Stroke Does the patient have a stroke diagnosis?: No VTE Prior VTE?: No VTE Risk Level:: Medical - moderate - high VTE Device Contraindication: Treatment Not Indicated VTE Drug Contraindication: N/A - Med Ordered
[2025-07-26] MEDS: Furosemide 40 MG/4 ML VIAL IVPUSH (17:39)
[2025-07-27] VITALS (8 sets, daily range): BP systolic 92–130; BP diastolic 60–72; PULSE 63–105; RESP 18–19; TEMP 36.2–36.6; O2SAT 96–98
[2025-07-27] MEDS: Furosemide 40 MG/4 ML VIAL IVPUSH (08:25)
[2025-07-27] MEDS: 0.9 % Sodium Chloride Flush 3 ML SYRINGE IVFLUSH (08:28)
--- NOTE | 2025-07-27 11:24 | PM.PNCARD ---
Subjective Subjective Date of Service: 07/27/25 Principal diagnosis: Decompensated congestive heart failure, nonsustained VT. Interval history: Patient has had episodes of nonsustained ventricular tachycardia which is not surprising in his case. Patient is breathing better. Diuresing well although intake and output chart it only has-400. In his bottles appears to be a lot more. He denies any palpitations. No lightheadedness. Blood pressure is on the lower side. Review of Systems Constitutional: Reports no additional constitutional complaints Cardiovascular: Denies chest pain, Denies rapid heart rate, Denies lightheadedness, Denies Loss of Consciousness and Reports dyspnea on exertion Respiratory: Reports no additional respiratory complaints and Reports dyspnea on exertion Musculoskeletal: Reports no additional musculoskeletal complaints Physical Exam Vital Signs: Last Vital Signs Temp 97.3 F 07/27/25 07:13 Pulse 104 H 07/27/25 08:26 Resp 18 07/27/25 07:13 BP 114/62 07/27/25 08:26 Pulse Ox 96 07/27/25 07:13 O2 Del Method Room Air 07/27/25 07:13 O2 Flow Rate 2 07/23/25 08:14 BMI result Body Mass Index 25.0 GENERAL APPEARANCE: in no acute distress, pleasant. NECK: no carotid bruit, ++ jugular venous distention. SKIN: no suspicious lesions, warm and dry. HEART: no murmurs, regular rate and rhythm. LUNGS: clear to auscultation bilaterally. ABDOMEN: soft, nontender. EXTREMITIES: no edema. PERIPHERAL PULSES: equal. NEUROLOGIC: No gross deficits, AAO X 3 Neck Neck: Yes no JVD Objective Labs and Meds 07/25/25 06:04 07/25/25 06:03 Progress Note: A&P Assessment and plan (1) Decompensated heart failure with reduced ejection fraction (HFrEF): Status: Acute Assessment and Plan: Decompensated congestive heart failure, patient doing well. He has been diuresing well although intake and output chart is suspect. Can switch to p.o. Lasix today. Increase carvedilol to 12.5 mg b.i.d.. Add low-dose valsartan 20 mg b.i.d. due to low blood pressure. Continue Jardiance. Anticipate discharge tomorrow. (2) NSVT (nonsustained ventricular tachycardia): Status: Acute Assessment and Plan: Nonsustained ventricular tachycardia in this male is not unusual given his severe cardiomyopathy process. He has a implantable defibrillator in place. Will increase carvedilol as above. Strongly advised to avoid cocaine use. He is agreeable. Consider possible re-evaluation by substance abuse team. Discussed with him that continued use of cocaine as well as noncompliance with medications going to lead to poor outcome including early that is. Will sign of the case and give patient to follow up as outpatient. Time Spent With Patient Time: Total time managing care of this patient today ____ minutes. Progress Note: Quality Stroke Does the patient have a stroke diagnosis?: No Procedures Date of Service Date of Service: 07/27/25
--- NOTE | 2025-07-27 13:31 | PC.NURSE ---
12 beat run of VTach at 08:55. Tracing sent and report to provider.
--- NOTE | 2025-07-27 16:18 | MHC.CM.PN ---
EMR REVIEWED AND PER MD ROUNDS, PATIENT IS NOT MEDICALLY CLEARED FOR DISCHARGE DUE TO MANAGEMENT OF CHF/ANASARCA.
--- NOTE | 2025-07-27 18:44 | P.PNIM_ITS ---
Subjective Subjective Date of Service: 07/27/25 Interval History: Noted to have additional episodes of non-sustained VT Cardiology following, say VT not surprising given his hx and lifestyle Has diuresed well, total 8.7L so far Reports feeling better, breathing better Denies chest pain or pressure No palpitations Review of Systems Review of Systems: Yes all other systems are reviewed and are negative Physical Exam 2 Exam: Exam: General: AOx3, no acute distress Resp: Lungs CTA CVS: S1, S2, RRR GI: +BS, NT, no distention Skin: Warm, dry Neuro: Cranial nerves II-XII grossly intact bilaterally. Motor grossly intact bilaterally Extremities: Trace bilateral pitting edema Psych: Appropriate affect Vital Signs: Vital Signs: Last Vital Signs Temp 97.5 F 07/27/25 15:36 Pulse 83 07/27/25 15:36 Resp 19 07/27/25 15:36 BP 99/70 07/27/25 15:36 Pulse Ox 98 07/27/25 15:36 O2 Del Method Room Air 07/27/25 15:36 O2 Flow Rate 2 07/23/25 08:14 BMI result Body Mass Index 25.0 Objective Data Active Medications Acetaminophen (Acetaminophen 325 Mg Tablet) 650 mg PO Q6H PRN PRN Reason: Pain, Mild 1-3,fever,headache Last Admin: 07/24/25 23:26 Dose: 650 mg Documented By: FELIPE Apixaban (Apixaban 5 Mg Tablet) 5 mg PO BID [facility] Last Admin: 07/27/25 08:26 Dose: 5 mg Documented By: JANET Calcium Carbonate (Calcium Carbonate 750 Mg Tab.Chew) 750 mg PO Q4H PRN PRN Reason: Heartburn Carvedilol (Carvedilol 12.5 Mg Tablet) 12.5 mg PO BID [facility]; Protocol Empagliflozin (Empagliflozin 10 Mg Tablet) 10 mg PO DAILY [facility] Last Admin: 07/27/25 08:26 Dose: 10 mg Documented By: JANET Furosemide (Furosemide 40 Mg Tablet) 40 mg PO DAILY [facility]; Protocol Magnesium Hydroxide (Milk Of Magnesia 30 Ml Oral.Susp) 30 ml PO DAILY PRN PRN Reason: Constipation Melatonin (Melatonin 3 Mg Tablet) 6 mg PO BEDTIME PRN PRN Reason: Insomnia Last Admin: 07/24/25 23:25 Dose: 6 mg Documented By: FELIPE Nitroglycerin (Nitroglycerin 0.4 Mg Tab.Subl) 0.4 mg SUBLINGUAL Q5MX3 PRN PRN Reason: Chest Pain Last Admin: 07/26/25 03:14 Dose: 0.4 mg Documented By: KIERSTEN Sodium Chloride (0.9 % Sodium Chloride Flush 3 Ml Syringe) 3 ml IVFLUSH QSHIFT EDMUND Last Admin: 07/27/25 17:24 Dose: Not Given Documented By: JANET Non-Admin Reason: Previously Administered Valsartan (Valsartan 40 Mg Tablet) 20 mg PO BID [facility]; Protocol Labs 07/25/25 06:04 07/25/25 06:03 Assessment and Plan (1) Decompensated heart failure with reduced ejection fraction (HFrEF): Status: Acute Plan Laron Garcia is a 50 y/o man with a PMHx significant for HFrEF (10- 15%), cardiac arrest s/p AICD and recent hospitalization due to acute CHF presents with: Acute hypoxic respiratory failure due to acute on chronic systolic CHF + anasarca. Supplemental O2 to keep O2 sats > 90%, has been weaned off O2 Initially on furosemide drip; will now switch 40mg IV bid to 40mg po tomorrow; diuresed 8.7L total Monitor I&O; low-salt diet. Daily weight. Continue Jardiance Will increase carvedilol to 12.5 mg and add losartan 20mg bid as BP allows Cardiology following Monitor on telemetry Paroxysmal atrial fibrillation, non-sustained VT Currently rate and rhythm controlled though has been noted to have multiple episodes of non-sustained VT Cardiology feels this is not suprising due to pt's severe cardiomyopathy Continue Eliquis, increase carvedilol and add losartan as above Chest pain, resolved Likely secondary to cocaine use Troponin flat with no acute EKG changes COPD. Bronchodilator therapy as needed for wheezing. Cocaine abuse. Addiction medicine consulted, pt initially declined intervention or follow up Appears more inclined to services Will re-consult addiction medicine for follow up tomorrow. Code status: Full DVT prophylaxis: On Eliquis Patient will need hospitalization overnight for acute on chronic systolic congestive heart failure treatment with non-sustained runs of VT. Pt will require additional night of monitoring and labs while optimizing oral medications. Anticipate discharge tomorrow. Quality Stroke Does the patient have a stroke diagnosis?: No VTE Prior VTE?: No VTE Risk Level:: Medical - moderate - high VTE Device Contraindication: Treatment Not Indicated VTE Drug Contraindication: N/A - Med Ordered
[2025-07-28 04:00] VITALS: BP 103/65; PULSE 98; RESP 18; TEMP 36.4; O2SAT 98
[2025-07-28 07:04] LABS: Hematocrit 39.5 % (42.0-52.0); Hemoglobin 12.2 g/dl (14.0-18.0); Mean Corpuscular HGB Conc 30.9 g/dl (31.0-36.0); Mean Corpuscular Hemoglobin 30.3 pg (27.0-33.0); Mean Corpuscular Volume 98.0 fL (80.0-98.0); NRBC Abs Auto 0.000 X10*3/uL (0.0-0.012); NRBC Pct Auto 0.0 /100WBC (0.0-0.2); Platelet Count 222 X10*3/uL (160-400); Red Blood Count 4.03 X10*6/uL (4.60-5.80); White Blood Count 8.3 X10*3/uL (4.8-10.8)
[2025-07-28 07:46] LABS: Anion Gap 11 (12-20); Blood Urea Nitrogen 27 mg/dL (9-16); Calcium 8.5 mg/dL (8.4-10.2); Carbon Dioxide 26 mmol/L (22-29); Chloride 108 mmol/L (96-108); Creatinine Clr Calc Pharmacy 90.9; Estimated Glomerular Filt Rate > 60; Potassium 4.5 mmol/L (3.3-5.1); Sodium 140 mmol/L (135-145)
[2025-07-28 07:51] LABS: NT Pro B Type Natriuretic Pept 5661.5 pg/mL (<300)
[2025-07-28 07:58] VITALS: BP 136/65; PULSE 91; RESP 18; TEMP 36.6; O2SAT 97
[2025-07-28] MEDS: 0.9 % Sodium Chloride Flush 3 ML SYRINGE IVFLUSH (08:33)
[2025-07-28 11:47] VITALS: BP 92/66; PULSE 79; RESP 18; TEMP 36.4; O2SAT 98
--- NOTE | 2025-07-28 12:28 | MHC.CM.PN ---
PT MEDICALLY CLEARED FOR DC HOME SELF-CARE, [facility] SHUTTLE FOR TRANSPORT.
--- NOTE | 2025-07-28 12:50 | PM.DS ---
DS: Providers Provider Date of Service: 07/28/25 Date of admission: 07/23/25 01:53 Date of discharge: 07/28/25 Primary care physician: Unknown Physician Consults: 07/23/25 02:43 Addiction Medicine Provider Routine Consulting Provider: Addiction Covering Reason for consultation: Cocaine abuse Has provider been notified: Yes 07/23/25 10:35 Consult to Cardiology Routine Consulting Provider: [facility] Reason for consultation: CHF exacerbation for optimization of medications\goals of care. DS: Diagnosis Discharge Diagnosis (1) Decompensated heart failure with reduced ejection fraction (HFrEF): Status: Acute DS: Summary Hospital Course Hospital Course: From admission HPI: Date of Service: 07/23/25 Attending physician on admission: Sandy Blunt Chief Complaint: Shortness of breath Laron Garcia is a 50 years old man with a past medical history significant for HFrEF (10-15%) status post AICD, cardiac arrest and AFib/a flutter on Eliquis was brought to the ED via ambulance complaining of worsening shortness on breath over the last week. He was recently admitted due to acute CHF. He also complex chest tightness, shortness on breath worse with exertion and dry cough. He also reports generalized weakness. Since recent discharge, he has been spending a lot of time in bed. He denied AICD firing. Denied tobacco smoking, alcohol abuse or illicit drug use, however his urine drug screen is positive for cocaine and marijuana. He said that he has been compliant with his medications. In the ED, in the ED he was found to have tachypnea. Other vital signs are normal. He is currently on supplemental oxygen via nasal cannula, 5 L/min. Blood workup showed leukocytosis of 11.3. Hemoglobin is 12.5 and platelets are 243. INR is 1.3. Blood workup showed no significant electrolyte imbalances. BUN is 30 and creatinine 1.12. LFTs remarkable for slight elevation of ALT only. Troponin is 34.4. Pro BNP is 12,049, much higher than prior. Albumin is 3.4. ED tx: Lasix 40 mg IV Hospital course: Pt was admitted to the hospital for acute hypoxic respiratory failure secondary to decompensated HFrEF exacerbation in the setting of cocaine use. Pt presented with significant volume overload and was aggressively diuresed, initially being placed on a Lasix drip x2 days which was then transitioned to 40 mg IV b.i.d.. Pt diuresed well with a cumulative at negative total of 10.3L. Pt was monitored closely on telemetry and noted to have multiple nonsustained runs of ventricular tachycardia. Pt was followed closely by Cardiology who thought such episodes of tachycardia were not surprising given patient's severe cardiomyopathy. pt already with AICD in place, and felt no acute intervention necessary. Hospital stay was otherwise unremarkable. Pt was slowly weaned off of supplemental oxygen, though he continues to experience some SOB with exertion. Pt was approached twice by addiction medicine, but he declined their services both time, stating that he was going to quit cocaine on his own and did not need any inpatient or outpatient help. Pt's carvedilol was increased to 12.5 mg b.i.d. and he was started on valsartan 20 mg b.i.d. Pt should continue all of your other home medications, including Eliquis, home furosemide 40 mg daily, and Jardiance. He should follow up with Cardiology in 1-2 weeks for CHF management and monitoring. Time Attestation Discharge Coordination Time (in mins): 37 Quality: Safe Use of Opioids Does Pt have an Active Cancer Diagnosis on the Problem List?: No Quality: Stroke Does the patient have a stroke diagnosis?: No Physical Exam Exam: Exam: General: AOx3, no acute distress Resp: Diffuse coarse breath sounds bilaterally CVS: S1, S2, RRR GI: +BS, NT, no distention Skin: Warm, dry Neuro: Cranial nerves II-XII grossly intact bilaterally. Motor grossly intact bilaterally Extremities: No edema Psych: Appropriate affect Vital Signs: Vital Signs: Last Vital Signs Temp 97.6 F 07/28/25 11:47 Pulse 79 07/28/25 11:47 Resp 18 07/28/25 11:47 BP 92/66 07/28/25 11:47 Pulse Ox 98 07/28/25 11:47 O2 Del Method Room Air 07/28/25 11:47 O2 Flow Rate 2 07/23/25 08:14 BMI result Body Mass Index 25.0 DS: Data Data Completed and Pending Labs on day of discharge: Laboratory Results - last 24 hr 07/28/25 06:23 WBC 8.3 RBC 4.03 L Hgb 12.2 L Hct 39.5 L MCV 98.0 MCH 30.3 MCHC 30.9 L RDW 15.1 Plt Count 222 MPV 10.6 Absolute Nucleated RBC 0.000 Nucleated RBC % (auto) 0.0 Sodium 140 Potassium 4.5 Chloride 108 Carbon Dioxide 26 Anion Gap 11 L BUN 27 H Creatinine 0.95 Estim Creat Clear Calc 90.9 Estimated GFR > 60 Random Glucose 100 Calcium 8.5 NT-Pro-B Natriuret Pep 5661.5 H Discharge Plan Discharge Anticipated Discharge Date/Time: 07/28/25 12:33 Patient Disposition: Home, Self-Care Discharge Diagnosis: Acute hypoxic respiratory failure in the setting of HFrEF exacerbation Referrals: Physician,Agnieszka J [Primary Care Provider, Medical] - 1 Week Discharge Medications: New carvedilol 12.5 mg Tablet 12.5 mg PO BID Qty: 180 0RF Protocol: Hold for SBP/HR < HOLD for SBP < : 90 HOLD for HR < : 60 Rx Instructions: Take one tablet twice a day valsartan 40 mg tablet 20 mg PO BID Qty: 60 0RF Rx Instructions: Take 20 mg (half a tablet) daily Continued Jardiance 10 mg Tablet 10 mg PO DAILY Qty: 90 0RF furosemide [Lasix] 40 mg tablet 40 mg PO DAILY Qty: 90 2RF Eliquis 5 mg Tablet 5 mg PO BID Qty: 180 2RF Discontinued carvedilol 6.25 mg Tablet 6.25 mg PO BID Qty: 180 0RF Protocol: Hold for SBP/HR < HOLD for SBP < : 90 HOLD for HR < : 60 Activity on Discharge: As tolerated Stand Alone Forms: Patient Portal Discharge page Print Language: Telugu Care Plan Goals: See below Health Concerns: Acute hypoxic respiratory failure CHF exacerbation Ventricular tachycardia Cocaine use disorder Plan of Treatment: You were admitted to the hospital for acute hypoxic respiratory failure secondary to decompensated heart failure exacerbation in the setting of continued cocaine use. You were significantly volume overloaded and treated with aggressive diuresing, initially being placed on a Lasix drip that was then transitioned to IV push twice a day. You diuresed well with a net total of over 8 L, and had a gradual improvement in your symptoms. You were slowly weaned off of supplemental oxygen and are currently around baseline with your breathing. He also complained of chest pain though workup was negative for acute coronary event. Hospital stay was complicated by bursts of nonsustained ventricular tachycardia that were seen on monitoring. You were followed closely by Cardiology who felt these episodes were not surprising giving the severity of your cardiomyopathy. Your carvedilol was increased from 6.25 mg to 12.5 mg twice a day, and you were also started on valsartan 20 mg twice a day. You were seen by addiction medicine for cocaine use disorder, but you did not wish to speak with them and declined any inpatient or outpatient services. -- your carvedilol will be increased to 12.5 mg twice a day -- start taking valsartan 20 mg twice a day -- continue furosemide 40 mg daily, Jardiance 10 mg daily, and Eliquis 5 mg twice a day -- follow up with Dr. Benavides in cardiology 1-2 weeks for CHF management -- follow up with PCP in 1 week for routine post-hospitalization visit -- you are strongly encouraged to abstain from cocaine use and to use whenever familial, social, and community support you can in order to maintain your sobriety Assessment: See discharge summary Patient Instructions: Heart Failure (GEN)
== END 2025-07-28 13:38 | disposition home or self-care (01) | DRG 816 ==
LOC: HO.ED 07-23 01:29 → HO.EDOVER 07-23 01:56 → HO.IMC 07-23 16:56
PROVIDERS: Hospitalist; Student in an Organized Health Care Education/Training Program; Admitting Provider Internal Medicine; Emergency Provider Emergency Medicine; Visit Provider Student in an Organized Health Care Education/Training Program
DX: T40.5X1A Poisoning by cocaine, accidental (unintentional), initial encounter (principal); J96.01 Acute respiratory failure with hypoxia; I50.23 Acute on chronic systolic (congestive) heart failure; Z79.01 Long term (current) use of anticoagulants; I47.20 Ventricular tachycardia, unspecified; F17.210 Nicotine dependence, cigarettes, uncomplicated; I42.9 Cardiomyopathy, unspecified; F14.10 Cocaine abuse, uncomplicated; J44.9 Chronic obstructive pulmonary disease, unspecified; Z71.6 Tobacco abuse counseling; F19.10 Other psychoactive substance abuse, uncomplicated; Z20.822 Contact with and (suspected) exposure to COVID-19; Z86.74 Personal history of sudden cardiac arrest; Z91.148 Patient's other noncompliance with medication regimen for other reason; Z95.810 Presence of automatic (implantable) cardiac defibrillator; Z79.899 Other long term (current) drug therapy
CPT/HCPCS: 36415; 71045; 80048; 80053; 80307; 81001; 83690; 83735; 83880; 84484; 85025; 85027; 87502; 87635; 93005; 99285; J1938; J2270; J3475; P9047

== ENCOUNTER → 2025-07-22 22:37 | Outpatient (BNV) | payer MEDICAID, SELFPAY | PROVIDERS: Admitting Provider Internal Medicine; Emergency Provider Emergency Medicine; Visit Provider Internal Medicine Cardiovascular Disease | DX: R94.31 Abnormal electrocardiogram [ECG] [EKG] (principal); R10.13 Epigastric pain | CPT/HCPCS: 93010 ==

== ENCOUNTER → 2025-07-22 23:13 | Outpatient (BNV) | payer MEDICAID, SELFPAY | PROVIDERS: Emergency Provider Emergency Medicine; Visit Provider Radiology Diagnostic Radiology | DX: I51.7 Cardiomegaly (principal); I50.9 Heart failure, unspecified | CPT/HCPCS: 71045 ==

== ENCOUNTER 2025-07-23 01:53 | Outpatient (BNV) | payer MEDICAID, SELFPAY | END 2025-07-26 03:17 | PROVIDERS: Admitting Provider Internal Medicine; Emergency Provider Emergency Medicine; Visit Provider Internal Medicine Cardiovascular Disease | DX: R94.31 Abnormal electrocardiogram [ECG] [EKG] (principal); R07.9 Chest pain, unspecified | CPT/HCPCS: 93010 ==

== ENCOUNTER → 2025-07-23 01:53 | Outpatient (BNV) | payer MEDICAID, SELFPAY | PROVIDERS: Admitting Provider Internal Medicine; Emergency Provider Emergency Medicine; Visit Provider Internal Medicine Cardiovascular Disease | DX: I50.9 Heart failure, unspecified (principal); I49.01 Ventricular fibrillation | CPT/HCPCS: 99223; 99233 ==

== ENCOUNTER → 2025-07-23 01:53 | Outpatient (BNV) | payer OTHER, SELFPAY | PROVIDERS: Admitting Provider Internal Medicine; Emergency Provider Emergency Medicine; Visit Provider Nurse Practitioner Psychiatric/Mental Health | DX: F14.90 Cocaine use, unspecified, uncomplicated (principal) | CPT/HCPCS: 99499 ==

== ENCOUNTER → 2025-07-23 01:53 | Outpatient (BNV) | payer MEDICAID, SELFPAY | PROVIDERS: Admitting Provider Internal Medicine; Emergency Provider Emergency Medicine; Visit Provider Internal Medicine | DX: I50.23 Acute on chronic systolic (congestive) heart failure (principal) | CPT/HCPCS: 99223; 99233; 99499 ==

== ENCOUNTER 2025-08-11 17:19 | Emergency (ER) | payer MEDICAID, SELFPAY ==
--- NOTE | ~2025-08-11 | CT_ITS ---
CLINICAL HISTORY: Abd pain, distension. CHF. remote laparatomy CT abdomen and pelvis with contrast Comparison: CT - CT ABDOMEN PELVIS W IV CON - 08/11/25 20:48 EST Findings: Partial visualization of a small to moderate right pleural effusion with mild underlying compressive right lower lobe atelectasis. There is a minimal left pleural effusion with minimal underlying compressive left lower lobe atelectasis. The heart is mildly enlarged. Edema and scattered free fluid identified throughout the intra-abdominal compartment, limiting evaluation for acute inflammatory processes. The liver appears borderline enlarged. The liver appears to be normal in contour, evaluation is mildly limited by adjacent edema in the arterial phase of postcontrast imaging. The spleen, pancreas, and bilateral adrenal glands are within normal limits for appearance. There is gallbladder wall thickening. The gallbladder and solid organs are within normal limits. No hydronephrosis. No bowel obstruction, pneumoperitoneum, or pneumatosis. Mild bowel wall thickening identified throughout the abdomen. Minimal calcification present within the prostate gland. Tiny, fluid containing bilateral inguinal hernias are present. No focal bladder wall thickening identified. Nonvisualization of the appendix. No acute fracture visualized. Vacuum disc phenomenon present at the L3-L4 and L4-L5 levels. There is extensive, diffuse body wall edema with scattered free fluid throughout the body wall soft tissues. IMPRESSION: 1. Generalized 3rd spacing of fluid with extensive, diffuse body wall edema as well as edema and scattered free fluid throughout the intra-abdominal compartment. These findings limit evaluation for acute inflammatory processes. 2. Gallbladder wall thickening. This may be related to generalized 3rd spacing of fluid. If there is clinical concern for acute cholecystitis, may consider gallbladder ultrasound examination and/or nuclear medicine HIDA scan for further evaluation. 3. Diffuse bowel wall thickening identified throughout the abdomen which may also be related to generalized 3rd spacing of fluid. An underlying enterocolitis is not excluded. No bowel obstruction. 4. Mild cardiomegaly with partial visualization of a small to moderate right pleural effusion. There is a minimal left pleural effusion. There is underlying bilateral lower lobe compressive atelectasis, more prominent on the right. This document has been electronically signed by: Parth Nye MD on 08/11/2025 22:02:56
--- NOTE | ~2025-08-11 | XR_ITS ---
CLINICAL HISTORY: fluid overloaded 1 view chest x-ray. Comparison: CR - XR CHEST 1V - 07/22/25 23:17 EDT Findings: There is central pulmonary venous congestion with [id number] interstitial prominence throughout the bilateral lungs and mild blunting of the right costophrenic angle. Possible minimal blunting of the left costophrenic angle. Minimal to mild right basilar opacities are present. No pneumothorax. Heart size is mildly enlarged. Left subclavian cardiac defibrillator device in place. Impression: 1. Mild cardiomegaly with findings suggesting [id number] pulmonary edema and a small right pleural effusion. There may also be a minimal left pleural effusion. 2. Minimal to mild right basilar atelectasis versus infiltrates. This document has been electronically signed by: Parth Nye MD on 08/11/2025 20:55:20
[2025-08-11 17:25] VITALS: BP 115/85; BP 116/63; PULSE 88; PULSE 96; RESP 17; TEMP 36.6; O2SAT 97; O2SAT 99; BMI 32.6
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
--- NOTE | 2025-08-11 19:33 | ECG_ITS ---
Test Reason : CHF, OVERLOAD Blood Pressure : */* mmHG Vent. Rate : 90 BPM Atrial Rate : 90 BPM P-R Int : 136 ms QRS Dur : 98 ms QT Int : 386 ms P-R-T Axes : 69 41 186 degrees QTcB Int : 472 ms Sinus rhythm with Fusion complexes Possible Left atrial enlargement Minimal voltage criteria for LVH, may be normal variant ( Shayan product ) ST & T wave abnormality, consider lateral ischemia Prolonged QT Abnormal ECG When compared with ECG of 26-Jul-2025 03:17, Fusion complexes are now Present Referred By: Morgan Fuller Electronically Signed By: Chuy Marroquin
[2025-08-11 20:15] LABS: Mean Corpuscular HGB Conc 31.0 g/dl (31.0-36.0); Mean Corpuscular Hemoglobin 30.2 pg (27.0-33.0); Mean Corpuscular Volume 97.2 fL (80.0-98.0); NRBC Abs Auto 0.000 X10*3/uL (0.0-0.012); NRBC Pct Auto 0.0 /100WBC (0.0-0.2); PLT CLUMP 1; SCAN SMEAR FLAG 1
[2025-08-11 20:17] LABS: Hematocrit 41.9 % (42.0-52.0); Hemoglobin 13.0 g/dl (14.0-18.0); Imm Gran Abs Auto 0.02 X10*3/uL (0.00-0.03); Imm Gran Pct Auto 0.3 % (0.0-0.4); Lymphocytes Absolute Auto 1.7 X10*3/uL (1.2-4.9); Red Blood Count 4.31 X10*6/uL (4.60-5.80)
[2025-08-11 20:20] LABS: MANUAL DIFF FLAG SCAN
[2025-08-11 20:34] VITALS: BP 114/90; PULSE 101; RESP 18; TEMP 36.9; O2SAT 99
[2025-08-11 20:38] LABS: Alanine Aminotransferase 51 U/L (0-40); Albumin Level 2.9 g/dL (3.5-5.0); Alkaline Phosphatase 96 U/L (39-117); Anion Gap 11 (12-20); Aspartate Amino Transferase 32 U/L (5-37); Blood Urea Nitrogen 20 mg/dL (9-16); Calcium 8.1 mg/dL (8.4-10.2); Carbon Dioxide 19 mmol/L (22-29); Chloride 112 mmol/L (96-108); Creatinine Clr Calc Pharmacy 90.4; Estimated Glomerular Filt Rate > 60; Lipase 9 U/L (8-78); Magnesium 2.1 mg/dL (1.6-2.6); Potassium 5.3 mmol/L (3.3-5.1); Sodium 137 mmol/L (135-145); Total Protein 5.9 g/dL (6.5-8.0)
[2025-08-11 20:43] LABS: White Blood Count 7.4 X10*3/uL (4.8-10.8)
[2025-08-11] MEDS: Furosemide 100 MG/10 ML VIAL 80 MG IVPUSH (20:47)
[2025-08-11] MEDS: iohexoL 350 MG/ML 100 ML INFUS..BTL 85 ML IV (21:04)
[2025-08-11 22:47] LABS: Potassium 4.3 mmol/L (3.3-5.1)
--- NOTE | 2025-08-11 23:01 | PC.NURSE ---
Pt yelling and swearing, upset about being discharge. Ripped IV out, threw discharge papers away, and refused discharge vitals. Dr. Fortune at bedside.
[2025-08-11 23:05] VITALS: BP 00/0; PULSE 0; RESP 20; TEMP -17.7; TEMP 0
== END 2025-08-11 23:07 | disposition home or self-care (01) ==
PROVIDERS: Emergency Provider Emergency Medicine
DX: R60.1 Generalized edema (principal); R10.9 Unspecified abdominal pain; R11.0 Nausea; I50.20 Unspecified systolic (congestive) heart failure; Z95.810 Presence of automatic (implantable) cardiac defibrillator; I48.91 Unspecified atrial fibrillation; I48.92 Unspecified atrial flutter
CPT/HCPCS: 36415; 71045; 74177; 80053; 83690; 83735; 83880; 84132; 85025; 93005; 96374; 99284; J1938; Q9967

== ENCOUNTER → 2025-08-11 19:31 | Outpatient (BNV) | payer MEDICAID, SELFPAY | PROVIDERS: Emergency Provider Emergency Medicine; Visit Provider Radiology Diagnostic Radiology | DX: I51.7 Cardiomegaly (principal) | CPT/HCPCS: 71045 ==

== ENCOUNTER → 2025-08-11 19:33 | Outpatient (BNV) | payer MEDICAID, SELFPAY | PROVIDERS: Emergency Provider Emergency Medicine; Visit Provider Internal Medicine Cardiovascular Disease | DX: R94.31 Abnormal electrocardiogram [ECG] [EKG] (principal); I50.9 Heart failure, unspecified | CPT/HCPCS: 93010 ==